=== PATIENT | female | born 1935 ===

== ENCOUNTER 2016-11-27 07:13 | Emergency (ER) | payer MEDICARE, OTHER ==
[2016-11-27 07:13] VITALS: BMI 41.0
[2016-11-27 07:23] VITALS: RESP 16; TEMP 99.2
--- NOTE | 2016-11-27 07:35 | ED PDOC ---
Arrival/HPI - General Chief Complaint: Lower Extremity Problem/Injury Time Seen by Provider: 11/27/16 07:25 Historian: Patient - History of Present Illness Narrative History of Present Illness (Text): 11/27/16 07:33 81 year old female whose past medical history includes hypertension, CAD s/p angioplasty, diabetes, chronic kidney disease, chronic anemia, hyperkalemia, and thrombocytopenia presents to the emergency department with right foot pain since yesterday. She states she is unable to walk due to the pain. Patient reports she took Tylenol with no improvement. Denies trauma or injury. No fever , chills, or body aches. PMD: Dr. Morataya Time/Duration: 24 hours Symptom Onset: Sudden Symptom Course: Unchanged Modifying Factors (Text): Tylenol with no improvement Associated Symptoms (Text): None Past Medical History - Provider Review Nursing Documentation Reviewed: Yes - Infectious Disease Hx of Infectious Diseases: None - Tetanus Immunization Tetanus Immunization: Unknown - Cardiac Hx Cardiac Disorders: Yes Hx Congestive Heart Failure: Yes Hx Hypertension: Yes - Pulmonary Hx Respiratory Disorders: No - Neurological Hx Neurological Disorder: No - HEENT Hx HEENT Disorder: Yes - Renal Hx Renal Disorder: No - Endocrine/Metabolic Hx Endocrine Disorders: Yes Hx Diabetes Mellitus Type 2: Yes - Hematological/Oncological Hx Blood Disorders: Yes Hx Blood Transfusions: Yes Hx Blood Transfusion Reaction: No - Integumentary Hx Dermatological Disorder: No Other/Comment: mid upper back multiple dark brown moles pt c/o they itch - Musculoskeletal/Rheumatological Hx Musculoskeletal Disorders: Yes Hx Arthritis: Yes (right leg) - Gastrointestinal Hx Gastrointestinal Disorders: Yes (gi bleed) - Genitourinary/Gynecological Hx Genitourinary Disorders: No - Psychiatric Hx Psychophysiologic Disorder: Yes Hx Anxiety: Yes Hx Substance Use: No - Surgical History Hx Amputation: No Hx Appendectomy: Yes Other/Comment: colon sx 2015 for internal bleeding - Anesthesia Hx Anesthesia Reactions: No Hx Malignant Hyperthermia: No - Suicidal Assessment Feels Threatened In Home Enviroment: No Family/Social History - Physician Review Nursing Documentation Reviewed: Yes Family/Social History: Unknown Family HX Smoking Status: Never Smoked Hx Alcohol Use: No Hx Substance Use: No Hx Substance Use Treatment: No Allergies/Home Meds Allergies/Adverse Reactions: Allergies shellfish derived Allergy (Verified 11/27/16 07:23) RASH Home Medications: Home Meds Medication Instructions Recorded Confirmed GlipiZIDE [Glucotrol] 10 mg PO DAILY 01/21/15 11/27/16 Furosemide [Lasix] 20 mg PO DAILY 04/14/15 11/27/16 Amlodipine Besylate [Norvasc] 10 mg PO DAILY 08/23/15 11/27/16 Aspirin [Aspirin Chewable] 81 mg PO DAILY 08/23/15 11/27/16 Iron,Carbonyl [Feosol] 65 mg PO DAILY 08/23/15 11/27/16 Isosorbide Mononitrate [Imdur] 60 mg PO DAILY 08/23/15 11/27/16 Multivit-Min/FA/Lycopen/Lutein 1 tab PO DAILY 08/23/15 11/27/16 [Centrum Silver Tablet] Insulin Lispro Mix 75/25 [HumaLOG 20 units SC .BEFOREBREAKFAST 10/22/15 11/27/16 Mix 75/25] Insulin Lispro Mix 75/25 [HumaLOG 20 units SC .BEFOREDINNER 10/22/15 11/27/16 Mix 75/25] Nitroglycerin [Nitrostat SL Tab] 0.3 mg SL PRN PRN 07/27/16 11/27/16 Pantoprazole [Protonix EC Tab] 20 mg PO DAILY 07/27/16 11/27/16 Review of Systems - Physician Review All systems were reviewed & negative as marked: Yes - Review of Systems Constitutional: Other (No chills). absent: Fevers Musculoskeletal: Other (Right foot pain). absent: Arthralgias, Back Pain Physical Exam Vital Signs Reviewed: Yes Vital Signs Temp Pulse Resp BP Pulse Ox 11/27/16 09:49 52 L 16 108/41 L 95 11/27/16 07:23 99.2 F 56 L 16 135/48 L 94 L Temperature: Afebrile Pulse: Bradycardic Respiratory Rate: Normal Appearance: Positive for: Well-Appearing, Non-Toxic Pain Distress: Moderate Mental Status: Positive for: Alert and Oriented X 3 - Systems Exam Head: Present: Atraumatic, Normocephalic Pupils: Present: PERRL Conjunctiva: Present: Normal Mouth: Present: Moist Mucous Membranes Neck: Present: Normal Range of Motion Upper Extremity: Present: Normal Inspection. No: Cyanosis, Edema Lower Extremity: Present: NORMAL PULSES, Other (Right lower extremity with redness, warmth, tenderness, and swelling to the dorsal side. ) Neurological: Present: GCS=15, CN II-XII Intact, Speech Normal Skin: Present: Warm, Dry. No: Rashes Psychiatric: Present: Alert, Oriented x 3, Normal Insight, Normal Concentration Medical Decision Making ED Course and Treatment: Impression: 81 year old female whose past medical history includes hypertension , CAD s/p angioplasty, diabetes, chronic kidney disease, chronic anemia, hyperkalemia, and thrombocytopenia presents to the emergency department with right foot pain since yesterday. Differential Diagnosis included but are not limited to: Cellulitis vs arthritis Plan: -- XR right foot -- Toradol -- Reassess and disposition Prior Visits: Notes and results from previous visits were reviewed. Patient last seen in the ED on 08/01/16 for abdominal pain and admitted for Cholelithiasis, Abdominal pain. Progress Notes: 11/27/16 08:28 Doppler shows great pulses as per Zora STAFFORD. X-ray negative as read by me. Patient states she did not take her diabetes medication for high glucose but will take it at home. Will discharge patient with a cane (pt did not want crutches) and instructions, and have her follow up with wet milling wheel operator Dr. Wang as well as her PMD. Patient agrees with plan. - Lab Interpretations Lab Results: Lab Results 11/27/16 07:54: POC Glucose (mg/dL) 322 H - RAD Interpretation Narrative RAD Interpretations (Text): PROCEDURE: Right Foot Radiographs. Crisis Manager : Abdullahi Delacruz MD Report Date : 11/27/2016 09:20:20 IMPRESSION: Normal right foot radiographs. Radiology Orders: 11/27/16 07:26 FOOT RIGHT 3 VIEWS ROUTINE [RAD] Stat Repairer: Radiologist - Medication Orders Current Medication Orders: Discontinued Medications Doxycycline Hyclate (Doryx) 100 mg PO STAT STA PRN Reason: Protocol Stop: 11/27/16 08:28 Last Admin: 11/27/16 08:42 Dose: 100 mg Ketorolac Tromethamine (Toradol) 60 mg IM STAT STA Stop: 11/27/16 07:27 Last Admin: 11/27/16 07:35 Dose: 60 mg Tramadol HCl (Ultram) 25 mg PO STAT STA Stop: 11/27/16 08:58 Last Admin: 11/27/16 09:08 Dose: 25 mg - Scribe Statement The provider has reviewed the documentation as recorded by the Elizabeth Kyle Provider Elizabeth Attestation: All medical record entries made by the Elizabeth were at my direction and personally dictated by me. I have reviewed the chart and agree that the record accurately reflects my personal performance of the history, physical exam, medical decision making, and the department course for this patient. I have also personally directed, reviewed, and agree with the discharge instructions and disposition. Disposition/Present on Arrival - Present on Arrival Any Indicators Present on Arrival: No History of DVT/PE: No History of Uncontrolled Diabetes: No Urinary Catheter: No History of Decub. Ulcer: No History Surgical Site Infection Following: None - Disposition Have Diagnosis and Disposition been Completed?: Yes Diagnosis: Cellulitis of foot Disposition: HOME/ ROUTINE Disposition Time: 08:28 Patient Plan: Discharge Condition: IMPROVED Discharge Instructions (ExitCare): Cellulitis (ED) Additional Instructions: Mr. Winters, thank you for letting us take care of you today. Your provider was Dr. Pendleton. You were treated for Foot Pain/Cellulitis, Hyperglycemia. The emergency medical care you received today was directed at your acute symptoms. If you were prescribed any medication, please fill it and take as directed. It may take several days for your symptoms to resolve. Return to the Emergency Department if your symptoms worsen, do not improve, or if you have any other problems. Please contact your doctor or call one of the physicians/clinics you have been referred to that are listed on the Patient Visit Information form that is included in your discharge packet. Bring any paperwork you were given at discharge with you along with any medications you are taking to your follow up visit. Our treatment cannot replace ongoing medical care by a primary care provider (PCP) outside of the emergency department. Thank you for allowing the [facility] team to be part of your care today. If you had an X-Ray or CT scan: A Radiologist will review the ED reading if any change in treatment is needed we will contact you. If you had a blood, urine, or wound culture: It will take several days for the results, if any change in treatment is needed we will contact you. If you had an STI test: It will take 48 hours for the results. Please call after 1 week if you have not heard back. Prescriptions: Doxycycline Hyclate 100 mg PO BID #28 capsule Naproxen 500 mg PO BID PRN #30 tab PRN Reason: Pain, Moderate (4-7) Referrals: Aspen Wang DPM [Staff Provider] - Follow up with primary Harsh Morataya MD [Primary Care Provider] - Follow up with primary Forms: [employer] ([place])
--- NOTE | 2016-11-27 09:21 | RAD ---
PROCEDURE: Right Foot Radiographs. HISTORY: pain r/o fx COMPARISON: None. FINDINGS: BONES: Normal. No fracture. JOINTS: Normal. SOFT TISSUES: Normal. OTHER FINDINGS: None. IMPRESSION: Normal right foot radiographs.
[2016-11-27 09:56] VITALS: BP 108/41; PULSE 52; O2SAT 95
== END 2016-11-27 10:15 | disposition home or self-care (01) ==
LOC: ED 07:13
DX: L03.115 Cellulitis of right lower limb (principal); E11.9 Type 2 diabetes mellitus without complications; I12.9 Hypertensive chronic kidney disease with stage 1 through stage 4 chronic kidney disease, or unspecified chronic kidney disease; N18.9 Chronic kidney disease, unspecified; E87.5 Hyperkalemia
CPT/HCPCS: 73630; 82948; 96372; 99284; J1885

== ENCOUNTER 2016-12-22 09:18 | Inpatient (IN) | payer MEDICARE, OTHER ==
--- NOTE | 2016-12-22 09:32 | ED PDOC ---
Arrival/HPI - General Chief Complaint: Abdominal Pain Time Seen by Provider: 12/22/16 09:20 Historian: Patient, Spouse - History of Present Illness Narrative History of Present Illness (Text): 12/22/16 09:29 81 year old female whose past medical history includes hypertension, CAD s/p angioplasty, diabetes, chronic kidney disease, chronic anemia, hyperkalemia, and thrombocytopenia presents to the emergency department complaining of OSPINA, chills, pleuritic chest pain, nausea, vomiting, abdominal pain, leg swelling, dizziness, and shortness of breath. Denies rectal bleeding, recent travel, sick contact, fever, rash, trauma, or recent surgical procedure. Time/Duration: Other (since last night) Context: Home Past Medical History - Provider Review Nursing Documentation Reviewed: Yes - Infectious Disease Hx of Infectious Diseases: None - Tetanus Immunization Tetanus Immunization: Unknown - Cardiac Hx Cardiac Disorders: Yes Hx Congestive Heart Failure: Yes Hx Hypertension: Yes - Pulmonary Hx Respiratory Disorders: No - Neurological Hx Neurological Disorder: No - HEENT Hx HEENT Disorder: Yes - Renal Hx Renal Disorder: No - Endocrine/Metabolic Hx Endocrine Disorders: Yes Hx Diabetes Mellitus Type 2: Yes - Hematological/Oncological Hx Blood Disorders: Yes Hx Blood Transfusions: Yes Hx Blood Transfusion Reaction: No - Integumentary Hx Dermatological Disorder: No - Musculoskeletal/Rheumatological Hx Musculoskeletal Disorders: Yes Hx Arthritis: Yes (right leg) - Gastrointestinal Hx Gastrointestinal Disorders: Yes (gi bleed) - Genitourinary/Gynecological Hx Genitourinary Disorders: No - Psychiatric Hx Psychophysiologic Disorder: Yes Hx Anxiety: Yes Hx Substance Use: No - Surgical History Hx Amputation: No Hx Appendectomy: Yes Other/Comment: colon sx 2015 - Anesthesia Hx Anesthesia Reactions: No Hx Malignant Hyperthermia: No - Suicidal Assessment Feels Threatened In Home Enviroment: No Family/Social History - Physician Review Nursing Documentation Reviewed: Yes Family/Social History: No Known Family HX Smoking Status: Never Smoked Hx Alcohol Use: No Hx Substance Use: No Hx Substance Use Treatment: No Allergies/Home Meds Allergies/Adverse Reactions: Allergies shellfish derived Allergy (Verified 12/22/16 12:44) RASH Home Medications: Home Meds Medication Instructions Recorded Confirmed GlipiZIDE [Glucotrol] 10 mg PO DAILY 01/21/15 12/22/16 Furosemide [Lasix] 20 mg PO DAILY 04/14/15 12/22/16 Amlodipine Besylate [Norvasc] 10 mg PO DAILY 08/23/15 12/22/16 Aspirin [Aspirin Chewable] 81 mg PO DAILY 08/23/15 12/22/16 Iron,Carbonyl [Feosol] 65 mg PO DAILY 08/23/15 12/22/16 Isosorbide Mononitrate [Imdur] 60 mg PO DAILY 08/23/15 12/22/16 Multivit-Min/FA/Lycopen/Lutein 1 tab PO DAILY 08/23/15 12/22/16 [Centrum Silver Tablet] Insulin Lispro Mix 75/25 [HumaLOG 20 units SC .BEFOREBREAKFAST 10/22/15 12/22/16 Mix 75/25] Insulin Lispro Mix 75/25 [HumaLOG 20 units SC .BEFOREDINNER 10/22/15 12/22/16 Mix 75/25] Nitroglycerin [Nitrostat SL Tab] 0.3 mg SL PRN PRN 07/27/16 12/22/16 Pantoprazole [Protonix EC Tab] 20 mg PO DAILY 07/27/16 12/22/16 Review of Systems - Review of Systems Constitutional: Fatigue, Other ((+) chills). absent: Weight Change, Fevers, Night Sweats Eyes: Normal. absent: Vision Changes, Photophobia ENT: Normal. absent: Hearing Changes, Sore Throat, Rhinorrhea Respiratory: SOB. absent: Cough, Sputum, Wheezing Cardiovascular: Chest Pain, Edema, NAVARRO. absent: Palpitations, Calf Pain, Orthopnea, Syncope Gastrointestinal: Abdominal Pain, Nausea, Vomiting. absent: Constipation, Diarrhea, Appetite Changes, Hematochezia, Hematemesis Genitourinary Female: Normal. absent: Dysuria, Frequency, Hematuria Musculoskeletal: Normal. absent: Back Pain, Neck Pain, Myalgias Skin: Normal. absent: Rash, Pruritis, Cellulitis Neurological: Headache, Dizziness. absent: Focal Weakness, Gait Changes, Speech Changes, Facial Droop, Disequilibrium, Seizure Endocrine: Normal Hemo/Lymphatic: Normal Psychiatric: Normal Physical Exam Vital Signs Temp Pulse Pulse Resp BP Pulse Ox 12/22/16 14:09 98 F 81 65 18 145/64 12/22/16 14:06 98 F 81 16 145/64 12/22/16 13:54 133/69 12/22/16 13:21 98.2 F 79 18 128/57 L 12/22/16 12:57 99 F 81 19 112/47 L 12/22/16 10:59 65 18 131/97 H 100 12/22/16 09:35 98 F 67 20 147/67 100 Temperature: Afebrile Blood Pressure: Normal Pulse: Regular Respiratory Rate: Normal Appearance: Positive for: Well-Appearing, Non-Toxic, Ill-Appearing, Uncomfortable Pain Distress: None Mental Status: Positive for: Alert and Oriented X 3 - Systems Exam Head: Present: Atraumatic, Normocephalic Pupils: Present: PERRL Extroacular Muscles: Present: EOMI Conjunctiva: Present: Normal Mouth: Present: Moist Mucous Membranes, Normal Lips. No: Drooling Pharnyx: Present: Normal. No: ERYTHEMA, EXUDATE, TONSILS ENLARGED Nose (External): Present: Atraumatic Nose (Internal): Present: Normal Inspection Neck: Present: Normal Range of Motion Respiratory/Chest: Present: Clear to Auscultation, Good Air Exchange. No: Respiratory Distress, Accessory Muscle Use, Wheezes, Retracting, Rhonchi Cardiovascular: Present: Regular Rate and Rhythm, Normal S1, S2. No: Murmurs Abdomen: Present: Tenderness (mild LLQ tenderness), Normal Bowel Sounds. No: Distention, Peritoneal Signs, Rebound, Guarding Rectal: Present: Normal Rectal Tone, Other ((+) black stool. (+) GUAIAC positive with positive control). No: Rectal Tenderness, Gross Blood, Hemorrhoids, Fissures, Nodule/Mass/Lesions Back: Present: Normal Inspection. No: CVA Tenderness Upper Extremity: Present: Normal Inspection, Normal ROM, NORMAL PULSES, Neurovascularly Intact, Capillary Refill < 2s. No: Cyanosis, Edema Lower Extremity: Present: Normal Inspection, NORMAL PULSES, Normal ROM, Neurovascularly Intact, Capillary Refill < 2 s. No: Edema Neurological: Present: GCS=15, CN II-XII Intact, Speech Normal, Motor Func Grossly Intact, Normal Sensory Function Skin: Present: Warm, Dry, Normal Color. No: Rashes Psychiatric: Present: Alert, Oriented x 3, Normal Insight, Normal Concentration Medical Decision Making ED Course and Treatment: 12/22/16 12:34 Dr. Canela came to see patient. Patient stated she has had multiple black stool in the past, last time was last night. GUAIAC was positive. I spoke with RIVERA Hunter regarding DrSocorro Morataya requested one pint of blood, and to give Lasix prior blood transfusion. Nurse understood plan. I was not able to change from 2 pints to 1 pint of blood transfusion on [employer]. RN is aware Re-evaluation Time: 12:36 Reassessment Condition: Re-examined, Improving,but remains with symptoms - Lab Interpretations Lab Results: 12/22/16 09:30 12/22/16 09:30 Lab Results 12/22/16 11:20: Blood Type A POSITIVE, Antibody Screen Negative, Crossmatch See Detail, BBK History Checked Patient has bt 12/22/16 11:11: Blood Type Cancelled, Antibody Screen Cancelled, BBK History Checked Cancelled 12/22/16 11:03: NT-Pro-B Natriuret Pep 553 H 12/22/16 10:50: Urine Color Yellow, Urine Appearance Slight-cloudy, Urine pH 6.0 , Ur Specific [place] 1.010, Urine Protein Negative, Urine Glucose (UA) 100 H, Urine Ketones Negative, Urine Blood Negative, Urine Nitrate Negative, Urine Bilirubin Negative, Urine Urobilinogen 0.2, Ur Leukocyte Esterase Trace H, Urine RBC Negative, Urine WBC 0 - 2, Ur Epithelial Cells 3 - 4, Urine Bacteria Few 12/22/16 09:30: Sodium 136, Chloride 102, Potassium 4.2, Carbon Dioxide 25, Anion Gap 13, BUN 42 H, Creatinine 1.5 H, Est GFR ( Amer) 40, Est GFR ( Non-Af Amer) 33, Random Glucose 185 H, Calcium 9.0, Total Bilirubin 0.4, AST 37 , ALT 37, Alkaline Phosphatase 122, Lactate Dehydrogenase 427, Total Creatine Kinase < 20 L, Troponin I < 0.01, Total Protein 6.0, Albumin 3.0, Globulin 3.0, Albumin/Globulin Ratio 1.0 L 12/22/16 09:30: pO2 34, VBG pH 7.43, VBG pCO2 40.0, VBG HCO3 26.5, VBG Total CO2 27.7, VBG O2 Sat (Calc) 74.0 H, VBG Base Excess 2.0, VBG Potassium 4.3, Sodium 137.0, Chloride 106.0, Lactate 3.0 H, FiO2 21.0, Venous Blood Potassium 4.3 12/22/16 09:30: PT 12.0 H, INR 1.11 H, APTT 25.1 12/22/16 09:30: WBC 10.0 D, RBC 2.16 L, Hgb 7.1 L D, Hct 21.3 L, MCV 98.6, MCH 32.9, MCHC 33.3, RDW 14.9 H, Plt Count 191, MPV 9.7, Gran % 57.8, Lymph % (Auto ) 27.6, [place] % (Auto) 10.7 H, Eos % (Auto) 3.1, Baso % (Auto) 0.8, Gran # 5.81, Lymph # 2.8, [place] # 1.1 H, Eos # 0.3, Baso # 0.08 I have reviewed the lab results: Yes Interpretation: Abnormal lab values - RAD Interpretation Narrative RAD Interpretations (Text): 12/22/16 10:23 Accession No. : [id number] Patient Name / ID : LEILA ZAVALETA / [id number] Exam Date : 12/22/2016 09:45:43 ( Approved ) Study Comment : Sex / Age : F / 81Y Creator : Abdullahi Delacruz MD Dictator : Abdullahi Delacruz MD Game Bird Farmer : Cob Sawyer : Abdullahi Delacruz MD Approver2 : Report Date : 12/22/2016 10:14:27 My Comment : PROCEDURE: CT HEAD WITHOUT CONTRAST. HISTORY: dizziness COMPARISON: None available. TECHNIQUE: Axial computed tomography images were obtained through the head/brain without intravenous contrast. Radiation dose: Total exam DLP = 689 mGy-cm. This CT exam was performed using one or more of the following dose reduction techniques: Automated exposure control, adjustment of the mA and/or kV according to patient size, and/or use of iterative reconstruction technique. FINDINGS: HEMORRHAGE: No intracranial hemorrhage. BRAIN: No mass effect or edema. No atrophy or chronic microvascular ischemic changes. VENTRICLES: Unremarkable. No hydrocephalus. CALVARIUM: Unremarkable. PARANASAL SINUSES: Unremarkable as visualized. No significant inflammatory changes. MASTOID AIR CELLS: Unremarkable as visualized. No inflammatory changes. OTHER FINDINGS: None. IMPRESSION: No acute findings 12/22/16 10:23 Accession No. : [id number] Patient Name / ID : LEILA ZAVALETA / [id number] Exam Date : 12/22/2016 09:48:12 ( Approved ) Study Comment : Sex / Age : F / 81Y Creator : Abdullahi Delacruz MD Dictator : Abdullahi Delacruz MD Game Bird Farmer : Cob Sawyer : Abdullahi Delacruz MD Approver2 : Report Date : 12/22/2016 10:19:30 My Comment : PROCEDURE: CT Abdomen and Pelvis without intravenous contrast HISTORY: saul-umbilical pain COMPARISON: None. TECHNIQUE: Technique. Contrast Dose: Radiation dose: Total exam DLP = 308 mGy-cm. This CT exam was performed using one or more of the following dose reduction techniques: Automated exposure control, adjustment of the mA and/or kV according to patient size, and/or use of iterative reconstruction technique. FINDINGS: LOWER THORAX: Unremarkable. LIVER: Unremarkable. No gross lesion or ductal dilatation. GALLBLADDER AND BILE DUCTS: Small gallstones PANCREAS: Unremarkable. No gross lesion or ductal dilatation. SPLEEN: Unremarkable. ADRENALS: Unremarkable. No mass. KIDNEYS AND URETERS: Unremarkable. No hydronephrosis. No solid mass. VASCULATURE: Unremarkable. No aortic aneurysm. BOWEL: Unremarkable. No obstruction. No gross mural thickening. A suture line is seen in transverse colon. Right hemicolectomy APPENDIX: Right hemicolectomy. No appendix PERITONEUM: Unremarkable. No free fluid. No free air. Small fact containing umbilical hernia LYMPH NODES: Unremarkable. No enlarged lymph nodes. BLADDER: Unremarkable. REPRODUCTIVE: Unremarkable. BONES: No acute fracture. OTHER FINDINGS: None. IMPRESSION: No acute intra-abdominal findings 12/22/16 10:27 Accession No. : [id number] Patient Name / ID : LEILA ZAVALETA / [id number] Exam Date : 12/22/2016 09:59:05 ( Approved ) Study Comment : Sex / Age : F / 81Y Creator : Abdullahi Delacruz MD Dictator : Abdullahi Delacruz MD Game Bird Farmer : Cob Sawyer : Abdullahi Delacruz MD Approver2 : Report Date : 12/22/2016 10:20:36 My Comment : HISTORY: sob COMPARISON: 07/26/2016 FINDINGS: LUNGS: No active pulmonary disease. PLEURA: No significant pleural effusion identified, no pneumothorax apparent. CARDIOVASCULAR: Normal. OSSEOUS STRUCTURES: No significant abnormalities. VISUALIZED UPPER ABDOMEN: Normal. OTHER FINDINGS: None. IMPRESSION: No active disease. Radiology Orders: 12/22/16 09:44 CHEST PORTABLE [RAD] Stat 12/22/16 09:46 ABD & PELVIS W/O PO OR IV CONT [CT] Stat 12/22/16 09:50 HEAD W/O CONTRAST [CT] Stat - EKG Interpretation Interpreted by ED Physician: Yes (Sinus Bradycardia @ [address] changes) Type: 12 lead EKG Comparison: No previous EKG avail. - Medication Orders Current Medication Orders: Amlodipine Besylate (Norvasc) 10 mg PO DAILY [facility] Last Admin: 12/22/16 13:54 Dose: 10 mg Aspirin (Aspirin Chewable) 81 mg PO DAILY [facility] Last Admin: 12/22/16 13:54 Dose: 81 mg Ferrous Sulfate (Feosol) 324 mg PO DAILY [facility] Last Admin: 12/22/16 14:11 Dose: 324 mg Furosemide (Lasix) 40 mg IVP DAILY [facility] Glipizide (Glucotrol) 10 mg PO DAILY [facility] Last Admin: 12/22/16 14:12 Dose: 10 mg Insulin Lispro Protam/Lispro Human (Humalog Mix 75/25) 20 units SC ACB [facility] Insulin Lispro Protam/Lispro Human (Humalog Mix 75/25) 20 units SC ACD [facility] Isosorbide Mononitrate (Imdur) 60 mg PO DAILY [facility] Last Admin: 12/22/16 14:11 Dose: 60 mg Pantoprazole Sodium (Protonix Ec Tab) 40 mg PO 0630 [facility] Discontinued Medications Albuterol/Ipratropium (Duoneb 3 Mg/0.5 Mg (3 Ml) Ud) 3 ml IH STAT STA Stop: 12/22/16 09:44 Last Admin: 12/22/16 10:16 Dose: 3 ml Furosemide (Lasix) 40 mg IVP STAT STA Stop: 12/22/16 12:31 Last Admin: 12/22/16 12:57 Dose: 40 mg Insulin Lispro Protam/Lispro Human (Humalog Mix 75/25) 20 units SC .BEFOREBREAKFAST [facility] Insulin Lispro Protam/Lispro Human (Humalog Mix 75/25) 20 units SC .BEFOREDINNER [facility] Pantoprazole Sodium (Protonix Inj) 40 mg IVP STAT STA Stop: 12/22/16 12:33 Last Admin: 12/22/16 13:54 Dose: 40 mg Pneumococcal Polyvalent Vaccine (Pneumovax 23 Vaccine) 0.5 ml IM .ONCE ONE Stop: 12/22/16 14:55 Disposition/Present on Arrival - Present on Arrival Any Indicators Present on Arrival: No History of DVT/PE: No History of Uncontrolled Diabetes: No Urinary Catheter: No History of Decub. Ulcer: No History Surgical Site Infection Following: None - Disposition Have Diagnosis and Disposition been Completed?: Yes Diagnosis: GI bleed, Symptomatic anemia Disposition: HOSPITALIZED Disposition Time: 12:36 Patient Plan: Admission Patient Problems: Current Active Problems Problem Status Onset GI bleed Acute Symptomatic anemia Acute Condition: STABLE
[2016-12-22] MEDS ORDERED: Albuterol-Ipratrop 3 mg / 0.5 (3 ml) UD IH STA (09:43)
[2016-12-22 10:09] LABS: BASO # 0.08 K/mm3 (0.0-2.0); BASO % 0.8 % (0.0-3.0); EOS # 0.3 (0.0-0.7); EOS % 3.1 % (1.5-5.0); GRAN # 5.81 (1.4-6.5); GRAN % 57.8 % (50.0-68.0); LYMPH # 2.8 (1.2-3.4); LYMPH % 27.6 % (22.0-35.0); MEAN CELL VOLUME 98.6 fL (80.0-105.0); MEAN CORPUSCULAR HEMOGLOBIN 32.9 pg (25.0-35.0); MEAN CORPUSCULAR HGB CONC 33.3 g/dl (31.0-37.0); MEAN PLATELET VOLUME 9.7 fl (7.0-11.0); MONO # 1.1 (0.1-0.6); MONO % 10.7 % (1.0-6.0); PLATELET COUNT 191 10^3/uL (120.0-450.0); RBC 2.16 10^6/uL (3.5-6.1); RED CELL DISTRIBUTION WIDTH 14.9 % (11.5-14.5); VENOUS BLOOD GAS PO2 34 mm/Hg (30-55); VENOUS BLOOD PH 7.43 (7.32-7.43)
--- NOTE | 2016-12-22 10:16 | CT ---
PROCEDURE: CT HEAD WITHOUT CONTRAST. HISTORY: dizziness COMPARISON: None available. TECHNIQUE: Axial computed tomography images were obtained through the head/brain without intravenous contrast. Radiation dose: Total exam DLP = 689 mGy-cm. This CT exam was performed using one or more of the following dose reduction techniques: Automated exposure control, adjustment of the mA and/or kV according to patient size, and/or use of iterative reconstruction technique. FINDINGS: HEMORRHAGE: No intracranial hemorrhage. BRAIN: No mass effect or edema. No atrophy or chronic microvascular ischemic changes. VENTRICLES: Unremarkable. No hydrocephalus. CALVARIUM: Unremarkable. PARANASAL SINUSES: Unremarkable as visualized. No significant inflammatory changes. MASTOID AIR CELLS: Unremarkable as visualized. No inflammatory changes. OTHER FINDINGS: None. IMPRESSION: No acute findings
[2016-12-22 10:18] LABS: ALT/SGPT 37 U/L (7-56); AST/SGOT 37 U/L (15-39); BLOOD UREA NITROGEN 42 mg/dL (7-21); GFR AFRICAN-AMERICAN 40; GFR NON-AFRICAN AMERICAN 33
--- NOTE | 2016-12-22 10:21 | CT ---
PROCEDURE: CT Abdomen and Pelvis without intravenous contrast HISTORY: saul-umbilical pain COMPARISON: None. TECHNIQUE: Technique. Contrast Dose: Radiation dose: Total exam DLP = 308 mGy-cm. This CT exam was performed using one or more of the following dose reduction techniques: Automated exposure control, adjustment of the mA and/or kV according to patient size, and/or use of iterative reconstruction technique. FINDINGS: LOWER THORAX: Unremarkable. LIVER: Unremarkable. No gross lesion or ductal dilatation. GALLBLADDER AND BILE DUCTS: Small gallstones PANCREAS: Unremarkable. No gross lesion or ductal dilatation. SPLEEN: Unremarkable. ADRENALS: Unremarkable. No mass. KIDNEYS AND URETERS: Unremarkable. No hydronephrosis. No solid mass. VASCULATURE: Unremarkable. No aortic aneurysm. BOWEL: Unremarkable. No obstruction. No gross mural thickening. A suture line is seen in transverse colon. Right hemicolectomy APPENDIX: Right hemicolectomy. No appendix PERITONEUM: Unremarkable. No free fluid. No free air. Small fact containing umbilical hernia LYMPH NODES: Unremarkable. No enlarged lymph nodes. BLADDER: Unremarkable. REPRODUCTIVE: Unremarkable. BONES: No acute fracture. OTHER FINDINGS: None. IMPRESSION: No acute intra-abdominal findings
--- NOTE | 2016-12-22 10:22 | RAD ---
HISTORY: sob COMPARISON: 07/26/2016 FINDINGS: LUNGS: No active pulmonary disease. PLEURA: No significant pleural effusion identified, no pneumothorax apparent. CARDIOVASCULAR: Normal. OSSEOUS STRUCTURES: No significant abnormalities. VISUALIZED UPPER ABDOMEN: Normal. OTHER FINDINGS: None. IMPRESSION: No active disease.
[2016-12-22 10:24] LABS: INR 1.11 (0.93-1.08); PARTIAL THROMBOPLASTIN TIME 25.1 Seconds (23.7-30.8)
[2016-12-22 10:28] LABS: HEMOGLOBIN 7.1 gm/dL (12.0-16.0)
[2016-12-22 10:38] LABS: TROPONIN I < 0.01 ng/mL
[2016-12-22 11:12] LABS: URINE BILIRUBIN NEGATIVE (NEGATIVE); URINE BLOOD NEGATIVE (NEGATIVE); URINE GLUCOSE (UA) 100 mg/dL (NEGATIVE); URINE LEUKOCYTE ESTERASE TRACE Leu/uL (NEGATIVE); URINE NITRATE NEGATIVE (NEGATIVE); URINE PROTEIN NEGATIVE mg/dL (<30 mg/dL); URINE UROBILINOGEN 0.2 E.U./dL (<1 E.U./dL)
[2016-12-22 11:16] LABS: URINE APPEARANCE SLIGHT-CLOUDY (CLEAR); URINE COLOR YELLOW (YELLOW)
[2016-12-22 11:26] LABS: URINE RBC NEGATIVE /hpf (0-2); URINE WBC 0 - 2 /hpf (0-6)
[2016-12-22 11:27] LABS: URINE BACTERIA FEW (NEG)
[2016-12-22] MEDS ORDERED: Insulin Lispro (humaLOG) MIX 75/25(10 ml) SC SCH ×2 (12:15)
[2016-12-22] MEDS ORDERED: Pantoprazole 40mg/100ml IVPB 40 MG/100 ML BAG IVPB STA (12:29)
[2016-12-22 13:42] LABS: VENOUS BLOOD GAS BASE EXCESS -0.9 mmol/L (0.0-2.0); VENOUS BLOOD GAS PO2 67 mm/Hg (30-55); VENOUS BLOOD PH 7.32 (7.32-7.43)
[2016-12-22 14:54] VITALS: BMI 23.0
[2016-12-22] MEDS ORDERED: Pneumococcal 23-Valent Vaccine IM ONE (14:54)
--- NOTE | 2016-12-22 15:56 | CARD ---
APPROVED REPORT EKG Measurement Heart [id number] <Conclusion> Sinus rhythm with Junctional Escape Abnormal ECG
[2016-12-22] MEDS: Insulin Lispro (HUMAlog) HIGH Coverage SC SCH (16:30)
[2016-12-22] MEDS: Insulin Lispro (humaLOG) MIX 75/25(10 ml) SC SCH (16:30)
[2016-12-22] MEDS: Benzocaine/Menthol (Cepacol) Lozenge MT PRN (21:29)
[2016-12-23] MEDS ORDERED: DiphenhydrAMINE 50 mg/ml Inj IVP STA (00:50)
--- NOTE | 2016-12-23 00:50 | CP.PCM.PN ---
Subjective - Date & Time of Evaluation Date of Evaluation: 12/23/16 Time of Evaluation: 00:41 - Subjective Subjective: Patient was seen at bedside. She complained of itching all over the body which began even prior to she received blood transfusion yesterday. She also has complain of itching in throat for which she has received a cepacol so far. Has no other complaints. Denies allergy to any medications , food. Has allergy to shellfish. Received blood transfusion earlier completed 16:56. Medical record was reviewed. This 81 year old woman was admitted headache, nausea, vomiting, sob, pleuritic chest pain, abdominal pain , dizziness, leg swelling. Has PMH of DM I ,CKD, HTN, CAD, S/P angioplasty, cardiac cirrhosis,chronic anemia, chronic hyperkalemia, thrombocytopenia cholelithiasis, chronic back pain. Objective - Vital Signs/Intake and Output Vital Signs (last 24 hours): Temp Pulse Resp BP Pulse Ox 98.4 F 83 20 123/58 L 94 L 12/22/16 16:56 12/22/16 16:56 12/22/16 16:56 12/22/16 16:56 12/22/16 16:00 Intake and Output: 12/22/16 12/23/16 18:59 06:59 Intake Total 300 480 Output Total 1 Balance 300 479 - Medications Medications: Current Medications Amlodipine Besylate (Norvasc) 10 mg PO DAILY [facility] Last Admin: 12/22/16 13:54 Dose: 10 mg Aspirin (Aspirin Chewable) 81 mg PO DAILY [facility] Last Admin: 12/22/16 13:54 Dose: 81 mg Benzocaine/Menthol (Cepacol Sore Throat) 1 nabil MT Q2H PRN PRN Reason: Sore Throat Last Admin: 12/22/16 21:29 Dose: 1 nabil Ferrous Sulfate (Feosol) 324 mg PO DAILY [facility] Last Admin: 12/22/16 14:11 Dose: 324 mg Furosemide (Lasix) 40 mg IVP DAILY [facility] Glipizide (Glucotrol) 10 mg PO DAILY [facility] Last Admin: 12/22/16 14:12 Dose: 10 mg Insulin Human Lispro (Humalog High) 0 units SC ACHS [facility] PRN Reason: Protocol Last Admin: 12/22/16 16:30 Dose: 4 units Insulin Lispro Protam/Lispro Human (Humalog Mix 75/25) 20 units SC ACB [facility] Insulin Lispro Protam/Lispro Human (Humalog Mix 75/25) 20 units SC ACD [facility] Last Admin: 12/22/16 16:30 Dose: 20 units Isosorbide Mononitrate (Imdur) 60 mg PO DAILY [facility] Last Admin: 12/22/16 14:11 Dose: 60 mg Pantoprazole Sodium (Protonix Ec Tab) 40 mg PO 0630 [facility] - Labs Labs: PT 12.0 Seconds (9.9-11.8) H 12/22/16 09:30 INR 1.11 (0.93-1.08) H 12/22/16 09:30 APTT 25.1 Seconds (23.7-30.8) 12/22/16 09:30 Lab Studies 12/23/16 12/22/16 12/22/16 Range/Units 01:22 21:14 16:34 WBC (4.5-11.0) 10^3/ul RBC (3.5-6.1) 10^6/uL Hgb (12.0-16.0) gm/dL Hct (36.0-48.0) % MCV (80.0-105.0) fL MCH (25.0-35.0) pg MCHC (31.0-37.0) g/dl RDW (11.5-14.5) % Plt Count (120.0-450.0) 10^3/uL MPV (7.0-11.0) fl Gran % (50.0-68.0) % Lymph % (Auto) (22.0-35.0) % Dewitt % (Auto) (1.0-6.0) % Eos % (Auto) (1.5-5.0) % Baso % (Auto) (0.0-3.0) % Gran # (1.4-6.5) Lymph # (1.2-3.4) Dewitt # (0.1-0.6) Eos # (0.0-0.7) Baso # (0.0-2.0) K/mm3 PT (9.9-11.8) Seconds INR (0.93-1.08) APTT (23.7-30.8) Seconds pO2 (30-55) mm/Hg VBG pH (7.32-7.43) VBG pCO2 (40-60) VBG HCO3 (21-28) mmol/l VBG Total CO2 (22-28) mmol.L VBG O2 Sat (Calc) (40-65) % VBG Base Excess (0.0-2.0) mmol/L VBG Potassium (3.6-5.2) mmol/L Sodium (132-148) mmol/L Chloride (98-107) mmol/L Glucose (65-105) mg/dl Lactate (0.7-2.1) mmol/L FiO2 % Potassium (3.6-5.0) mmol/L Carbon Dioxide (21-33) mmol/L Anion Gap (10-20) BUN (7-21) mg/dL Creatinine (0.5-1.4) mg/dL Est GFR ( Amer) Est GFR (Non-Af Amer) POC Glucose (mg/dL) 273 H 278 H 243 H (65-110) mg/dL Random Glucose (70-110) mg/dL Calcium (8.4-10.5) mg/dL Total Bilirubin (0.2-1.3) mg/dL AST (15-39) U/L ALT (7-56) U/L Alkaline Phosphatase (38-133) U/L Lactate Dehydrogenase (333-699) U/L Total Creatine Kinase (35-230) U/L Troponin I ng/mL NT-Pro-B Natriuret Pep (0-450) pg/mL Total Protein (5.8-8.3) g/dL Albumin (3.0-4.8) g/dL Globulin gm/dL Albumin/Globulin Ratio (1.1-1.8) Venous Blood Potassium (3.6-5.2) mmol/L Urine Color (YELLOW) Urine Appearance (CLEAR) Urine pH (4.7-8.0) Ur Specific Gowen (1.005-1.035) Urine Protein (<30 mg/dL) mg/dL Urine Glucose (UA) (NEGATIVE) mg/dL Urine Ketones (NEGATIVE) mg/dL Urine Blood (NEGATIVE) Urine Nitrate (NEGATIVE) Urine Bilirubin (NEGATIVE) Urine Urobilinogen (<1 E.U./dL) E.U./dL Ur Leukocyte Esterase (NEGATIVE) Carmen/uL Urine RBC (0-2) /hpf Urine WBC (0-6) /hpf Ur Epithelial Cells (0-5) /hpf Urine Bacteria (NEG) Blood Type Antibody Screen Crossmatch BBK History Checked 12/22/16 12/22/16 12/22/16 Range/Units 14:10 13:36 11:20 WBC (4.5-11.0) 10^3/ul RBC (3.5-6.1) 10^6/uL Hgb (12.0-16.0) gm/dL Hct (36.0-48.0) % MCV (80.0-105.0) fL MCH (25.0-35.0) pg MCHC (31.0-37.0) g/dl RDW (11.5-14.5) % Plt Count (120.0-450.0) 10^3/uL MPV (7.0-11.0) fl Gran % (50.0-68.0) % Lymph % (Auto) (22.0-35.0) % Dewitt % (Auto) (1.0-6.0) % Eos % (Auto) (1.5-5.0) % Baso % (Auto) (0.0-3.0) % Gran # (1.4-6.5) Lymph # (1.2-3.4) Dewitt # (0.1-0.6) Eos # (0.0-0.7) Baso # (0.0-2.0) K/mm3 PT (9.9-11.8) Seconds INR (0.93-1.08) APTT (23.7-30.8) Seconds pO2 67 H (30-55) mm/Hg VBG pH 7.32 (7.32-7.43) VBG pCO2 50.0 (40-60) VBG HCO3 25.8 (21-28) mmol/l VBG Total CO2 27.3 (22-28) mmol.L VBG O2 Sat (Calc) 96.8 H (40-65) % VBG Base Excess -0.9 L (0.0-2.0) mmol/L VBG Potassium 5.2 (3.6-5.2) mmol/L Sodium 155.0 H (132-148) mmol/L Chloride 90.0 L (98-107) mmol/L Glucose 235 H (65-105) mg/dl Lactate 1.4 (0.7-2.1) mmol/L FiO2 21.0 % Potassium (3.6-5.0) mmol/L Carbon Dioxide (21-33) mmol/L Anion Gap (10-20) BUN (7-21) mg/dL Creatinine (0.5-1.4) mg/dL Est GFR ( Amer) Est GFR (Non-Af Amer) POC Glucose (mg/dL) 335 H (65-110) mg/dL Random Glucose (70-110) mg/dL Calcium (8.4-10.5) mg/dL Total Bilirubin (0.2-1.3) mg/dL AST (15-39) U/L ALT (7-56) U/L Alkaline Phosphatase (38-133) U/L Lactate Dehydrogenase (333-699) U/L Total Creatine Kinase (35-230) U/L Troponin I ng/mL NT-Pro-B Natriuret Pep (0-450) pg/mL Total Protein (5.8-8.3) g/dL Albumin (3.0-4.8) g/dL Globulin gm/dL Albumin/Globulin Ratio (1.1-1.8) Venous Blood Potassium 5.2 (3.6-5.2) mmol/L Urine Color (YELLOW) Urine Appearance (CLEAR) Urine pH (4.7-8.0) Ur Specific Gowen (1.005-1.035) Urine Protein (<30 mg/dL) mg/dL Urine Glucose (UA) (NEGATIVE) mg/dL Urine Ketones (NEGATIVE) mg/dL Urine Blood (NEGATIVE) Urine Nitrate (NEGATIVE) Urine Bilirubin (NEGATIVE) Urine Urobilinogen (<1 E.U./dL) E.U./dL Ur Leukocyte Esterase (NEGATIVE) Carmen/uL Urine RBC (0-2) /hpf Urine WBC (0-6) /hpf Ur Epithelial Cells (0-5) /hpf Urine Bacteria (NEG) Blood Type A POSITIVE Antibody Screen Negative Crossmatch See Detail BBK History Checked Patient has bt 12/22/16 12/22/16 12/22/16 Range/Units 11:11 11:03 10:50 WBC (4.5-11.0) 10^3/ul RBC (3.5-6.1) 10^6/uL Hgb (12.0-16.0) gm/dL Hct (36.0-48.0) % MCV (80.0-105.0) fL MCH (25.0-35.0) pg MCHC (31.0-37.0) g/dl RDW (11.5-14.5) % Plt Count (120.0-450.0) 10^3/uL MPV (7.0-11.0) fl Gran % (50.0-68.0) % Lymph % (Auto) (22.0-35.0) % Dewitt % (Auto) (1.0-6.0) % Eos % (Auto) (1.5-5.0) % Baso % (Auto) (0.0-3.0) % Gran # (1.4-6.5) Lymph # (1.2-3.4) Dewitt # (0.1-0.6) Eos # (0.0-0.7) Baso # (0.0-2.0) K/mm3 PT (9.9-11.8) Seconds INR (0.93-1.08) APTT (23.7-30.8) Seconds pO2 (30-55) mm/Hg VBG pH (7.32-7.43) VBG pCO2 (40-60) VBG HCO3 (21-28) mmol/l VBG Total CO2 (22-28) mmol.L VBG O2 Sat (Calc) (40-65) % VBG Base Excess (0.0-2.0) mmol/L VBG Potassium (3.6-5.2) mmol/L Sodium (132-148) mmol/L Chloride (98-107) mmol/L Glucose (65-105) mg/dl Lactate (0.7-2.1) mmol/L FiO2 % Potassium (3.6-5.0) mmol/L Carbon Dioxide (21-33) mmol/L Anion Gap (10-20) BUN (7-21) mg/dL Creatinine (0.5-1.4) mg/dL Est GFR ( Amer) Est GFR (Non-Af Amer) POC Glucose (mg/dL) (65-110) mg/dL Random Glucose (70-110) mg/dL Calcium (8.4-10.5) mg/dL Total Bilirubin (0.2-1.3) mg/dL AST (15-39) U/L ALT (7-56) U/L Alkaline Phosphatase (38-133) U/L Lactate Dehydrogenase (333-699) U/L Total Creatine Kinase (35-230) U/L Troponin I ng/mL NT-Pro-B Natriuret Pep 553 H (0-450) pg/mL Total Protein (5.8-8.3) g/dL Albumin (3.0-4.8) g/dL Globulin gm/dL Albumin/Globulin Ratio (1.1-1.8) Venous Blood Potassium (3.6-5.2) mmol/L Urine Color Yellow (YELLOW) Urine Appearance Slight-cloudy (CLEAR) Urine pH 6.0 (4.7-8.0) Ur Specific Gowen 1.010 (1.005-1.035) Urine Protein Negative (<30 mg/dL) mg/dL Urine Glucose (UA) 100 H (NEGATIVE) mg/dL Urine Ketones Negative (NEGATIVE) mg/dL Urine Blood Negative (NEGATIVE) Urine Nitrate Negative (NEGATIVE) Urine Bilirubin Negative (NEGATIVE) Urine Urobilinogen 0.2 (<1 E.U./dL) E.U./dL Ur Leukocyte Esterase Trace H (NEGATIVE) Carmen/uL Urine RBC Negative (0-2) /hpf Urine WBC 0 - 2 (0-6) /hpf Ur Epithelial Cells 3 - 4 (0-5) /hpf Urine Bacteria Few (NEG) Blood Type Cancelled Antibody Screen Cancelled Crossmatch BBK History Checked Cancelled 12/22/16 12/22/16 12/22/16 Range/Units 09:30 09:30 09:30 WBC (4.5-11.0) 10^3/ul RBC (3.5-6.1) 10^6/uL Hgb (12.0-16.0) gm/dL Hct (36.0-48.0) % MCV (80.0-105.0) fL MCH (25.0-35.0) pg MCHC (31.0-37.0) g/dl RDW (11.5-14.5) % Plt Count (120.0-450.0) 10^3/uL MPV (7.0-11.0) fl Gran % (50.0-68.0) % Lymph % (Auto) (22.0-35.0) % Dewitt % (Auto) (1.0-6.0) % Eos % (Auto) (1.5-5.0) % Baso % (Auto) (0.0-3.0) % Gran # (1.4-6.5) Lymph # (1.2-3.4) Dewitt # (0.1-0.6) Eos # (0.0-0.7) Baso # (0.0-2.0) K/mm3 PT (9.9-11.8) Seconds INR (0.93-1.08) APTT (23.7-30.8) Seconds pO2 34 (30-55) mm/Hg VBG pH 7.43 (7.32-7.43) VBG pCO2 40.0 (40-60) VBG HCO3 26.5 (21-28) mmol/l VBG Total CO2 27.7 (22-28) mmol.L VBG O2 Sat (Calc) 74.0 H (40-65) % VBG Base Excess 2.0 (0.0-2.0) mmol/L VBG Potassium 4.3 (3.6-5.2) mmol/L Sodium 136 137.0 (132-148) mmol/L Chloride 102 106.0 (98-107) mmol/L Glucose (65-105) mg/dl Lactate 3.0 H (0.7-2.1) mmol/L FiO2 21.0 % Potassium 4.2 (3.6-5.0) mmol/L Carbon Dioxide 25 (21-33) mmol/L Anion Gap 13 (10-20) BUN 42 H (7-21) mg/dL Creatinine 1.5 H (0.5-1.4) mg/dL Est GFR ( Amer) 40 Est GFR (Non-Af Amer) 33 POC Glucose (mg/dL) 256 H (65-110) mg/dL Random Glucose 185 H (70-110) mg/dL Calcium 9.0 (8.4-10.5) mg/dL Total Bilirubin 0.4 (0.2-1.3) mg/dL AST 37 (15-39) U/L ALT 37 (7-56) U/L Alkaline Phosphatase 122 (38-133) U/L Lactate Dehydrogenase 427 (333-699) U/L Total Creatine Kinase < 20 L (35-230) U/L Troponin I < 0.01 ng/mL NT-Pro-B Natriuret Pep (0-450) pg/mL Total Protein 6.0 (5.8-8.3) g/dL Albumin 3.0 (3.0-4.8) g/dL Globulin 3.0 gm/dL Albumin/Globulin Ratio 1.0 L (1.1-1.8) Venous Blood Potassium 4.3 (3.6-5.2) mmol/L Urine Color (YELLOW) Urine Appearance (CLEAR) Urine pH (4.7-8.0) Ur Specific Gowen (1.005-1.035) Urine Protein (<30 mg/dL) mg/dL Urine Glucose (UA) (NEGATIVE) mg/dL Urine Ketones (NEGATIVE) mg/dL Urine Blood (NEGATIVE) Urine Nitrate (NEGATIVE) Urine Bilirubin (NEGATIVE) Urine Urobilinogen (<1 E.U./dL) E.U./dL Ur Leukocyte Esterase (NEGATIVE) Carmen/uL Urine RBC (0-2) /hpf Urine WBC (0-6) /hpf Ur Epithelial Cells (0-5) /hpf Urine Bacteria (NEG) Blood Type Antibody Screen Crossmatch BBK History Checked 12/22/16 12/22/16 Range/Units 09:30 09:30 WBC 10.0 D (4.5-11.0) 10^3/ul RBC 2.16 L (3.5-6.1) 10^6/uL Hgb 7.1 L D (12.0-16.0) gm/dL Hct 21.3 L (36.0-48.0) % MCV 98.6 (80.0-105.0) fL MCH 32.9 (25.0-35.0) pg MCHC 33.3 (31.0-37.0) g/dl RDW 14.9 H (11.5-14.5) % Plt Count 191 (120.0-450.0) 10^3/uL MPV 9.7 (7.0-11.0) fl Gran % 57.8 (50.0-68.0) % Lymph % (Auto) 27.6 (22.0-35.0) % Dewitt % (Auto) 10.7 H (1.0-6.0) % Eos % (Auto) 3.1 (1.5-5.0) % Baso % (Auto) 0.8 (0.0-3.0) % Gran # 5.81 (1.4-6.5) Lymph # 2.8 (1.2-3.4) Dewitt # 1.1 H (0.1-0.6) Eos # 0.3 (0.0-0.7) Baso # 0.08 (0.0-2.0) K/mm3 PT 12.0 H (9.9-11.8) Seconds INR 1.11 H (0.93-1.08) APTT 25.1 (23.7-30.8) Seconds pO2 (30-55) mm/Hg VBG pH (7.32-7.43) VBG pCO2 (40-60) VBG HCO3 (21-28) mmol/l VBG Total CO2 (22-28) mmol.L VBG O2 Sat (Calc) (40-65) % VBG Base Excess (0.0-2.0) mmol/L VBG Potassium (3.6-5.2) mmol/L Sodium (132-148) mmol/L Chloride (98-107) mmol/L Glucose (65-105) mg/dl Lactate (0.7-2.1) mmol/L FiO2 % Potassium (3.6-5.0) mmol/L Carbon Dioxide (21-33) mmol/L Anion Gap (10-20) BUN (7-21) mg/dL Creatinine (0.5-1.4) mg/dL Est GFR ( Amer) Est GFR (Non-Af Amer) POC Glucose (mg/dL) (65-110) mg/dL Random Glucose (70-110) mg/dL Calcium (8.4-10.5) mg/dL Total Bilirubin (0.2-1.3) mg/dL AST (15-39) U/L ALT (7-56) U/L Alkaline Phosphatase (38-133) U/L Lactate Dehydrogenase (333-699) U/L Total Creatine Kinase (35-230) U/L Troponin I ng/mL NT-Pro-B Natriuret Pep (0-450) pg/mL Total Protein (5.8-8.3) g/dL Albumin (3.0-4.8) g/dL Globulin gm/dL Albumin/Globulin Ratio (1.1-1.8) Venous Blood Potassium (3.6-5.2) mmol/L Urine Color (YELLOW) Urine Appearance (CLEAR) Urine pH (4.7-8.0) Ur Specific Gowen (1.005-1.035) Urine Protein (<30 mg/dL) mg/dL Urine Glucose (UA) (NEGATIVE) mg/dL Urine Ketones (NEGATIVE) mg/dL Urine Blood (NEGATIVE) Urine Nitrate (NEGATIVE) Urine Bilirubin (NEGATIVE) Urine Urobilinogen (<1 E.U./dL) E.U./dL Ur Leukocyte Esterase (NEGATIVE) Carmen/uL Urine RBC (0-2) /hpf Urine WBC (0-6) /hpf Ur Epithelial Cells (0-5) /hpf Urine Bacteria (NEG) Blood Type Antibody Screen Crossmatch BBK History Checked - Constitutional Appears: Well, No Acute Distress - Head Exam Head Exam: ATRAUMATIC, NORMAL INSPECTION, NORMOCEPHALIC - Eye Exam Eye Exam: Normal appearance - ENT Exam ENT Exam: Normal External Ear Exam - Neck Exam Neck Exam: Normal Inspection - Respiratory Exam Respiratory Exam: NORMAL BREATHING PATTERN - Cardiovascular Exam Cardiovascular Exam: absent: JVD - GI/Abdominal Exam GI & Abdominal Exam: Soft (YEs.), Tenderness (Mild saul umbilical tenderness present.), Normal Bowel Sounds. absent: Bruit, Distended, Firm, Guarding, Rigid , Mass, Organomegaly, Pulsatile Mass, Rebound Additional comments: Midline kelly present. RLQ site of Froylan-Albert clean ,dry. - Rectal Exam Rectal Exam: Deferred - Exam Additional comments: Deferred. - Extremities Exam Extremities Exam: Normal Inspection - Back Exam Back Exam: NORMAL INSPECTION - Neurological Exam Neurological Exam: Alert, Oriented x3 - Psychiatric Exam Psychiatric exam: Normal Affect, Normal Mood - Skin Skin Exam: Normal Color. absent: Dry, Rash Assessment and Plan - Assessment and Plan (Free Text) Assessment: Itching. Sore throat. HTN. CKD. Chronic hyperkalemai. Chronic anemia. Chronic back pain. CAD. S/P stent. Hx cholelithiasis. Plan: Benadryl 25 mg IV stat. Cepacol as ordered. Continue present management.
[2016-12-23] MEDS: Benzocaine/Menthol (Cepacol) Lozenge MT PRN ×2 (01:10→06:01)
--- NOTE | 2016-12-23 02:41 | HP ---
HISTORY OF PRESENT ILLNESS: The patient is an 81 years old came to the emergency room, because of shortness of breath, chest pressure, fatigue, leg pain, had vomiting this morning, did not complain of diarrhea, did have one or two black bowel movement couple of days ago. Complain of decreased appetite. Complain of leg pain. Complain of generalized itching and multiple other miscellaneous complaints. PAST MEDICAL HISTORY: She has significant past medical history of: 1. Hypertension. 2. Coronary artery disease status post angioplasty in 2015. 3. Insulin dependent diabetes. 4. 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 5. Hyperkalemia. 6. Chronic anemia and thrombocytopenia. 7. Cardiac sclerosis. 8. Chronic kidney disease. 9. History of hyperkalemia. 10. 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 11. Status post right hemicolectomy with because of AVMs. ALLERGIES: SHE IS ALLERGIC TO SHELLFISH. MEDICATIONS AT HOME. She is on Tramadol, Protonix 20 mg daily, Nitrostat, Naproxen 500 mg twice a day as needed, multivitamin, isosorbide 60 mg daily, ferrous sulfate 65 daily. The patient is on insulin 75/25 20 units twice a day, glipizide 10 mg daily, Lasix 20 mg daily, aspirin 81 mg daily and amlodipine 10 mg daily. SOCIAL HISTORY: Denies smoking or drinking. REVIEW OF SYSTEMS: Significant for generalized weakness, decreased appetite, leg pain, nausea, intermittent diarrhea. PHYSICAL EXAMINATION: GENERAL: Today looks pale and weak. VITAL SIGNS: She is afebrile, pulse 81, respiration 18, blood pressure 145/64. LUNGS: Bilateral fair air flow. No rhonchi or crackle. HEART: S1 and S2 audible with loud systolic murmur. ABDOMEN: Soft and nontender. No rebound and no guarding. NEUROLOGIC: The patient is awake and alert, able to communicate. LABORATORY DATA: WBC is 10, hemoglobin 7.1, hematocrit 21.3, platelet of 191. PT 12.0, INR 1.11. Chemistry: Sodium 136, potassium 4.2, chloride 102, CO2 *------*, BUN 42, creatinine 1.5. Blood sugar is 185. LFTs are within normal limits. CPK is 20. BNP 553. Urinalysis is unremarkable. CT scan of the head is negative. CT scan of the abdomen and pelvis is unremarkable. ASSESSMENT: 1. Symptomatic anemia. 2. History of gastrointestinal arterioventricular malfunctions. 3. History of Dieulafoy's lesion. 3. Hypertension. 4. Chronic kidney disease. 5. Insulin dependent diabetes. 6. Generalized weakness. PLAN: We will given her one blood transfusion today. We will follow CBC, CMP in a.m. We will monitor blood sugar and GI consult by *------* has been requested. We will revaluate the patient in a.m. Harsh Morataya MD
[2016-12-23 07:27] LABS: ALB/GLOB RATIO 0.9 (1.1-1.8); ALBUMIN 2.6 g/dL (3.0-4.8); CALCIUM 8.6 mg/dL (8.4-10.5)
[2016-12-23 07:28] LABS: BASO # 0.08 K/mm3 (0.0-2.0); BASO % 0.7 % (0.0-3.0); EOS # 0.5 (0.0-0.7); GRAN # 7.99 (1.4-6.5); GRAN % 65.4 % (50.0-68.0); LYMPH # 2.5 (1.2-3.4); LYMPH % 20.6 % (22.0-35.0); MEAN CELL VOLUME 95.1 fL (80.0-105.0); MEAN CORPUSCULAR HGB CONC 33.6 g/dl (31.0-37.0); MEAN PLATELET VOLUME 9.6 fl (7.0-11.0); MONO # 1.1 (0.1-0.6); MONO % 9.3 % (1.0-6.0); PLATELET COUNT 169 10^3/uL (120.0-450.0); RBC 2.44 10^6/uL (3.5-6.1); RED CELL DISTRIBUTION WIDTH 17.4 % (11.5-14.5); WHITE BLOOD COUNT 12.2 10^3/ul (4.5-11.0)
[2016-12-23 07:38] LABS: HEMOGLOBIN 7.8 gm/dL (12.0-16.0)
[2016-12-23] MEDS: Insulin Lispro (HUMAlog) HIGH Coverage SC SCH ×4 (08:17→21:44)
[2016-12-23] MEDS: Insulin Lispro (humaLOG) MIX 75/25(10 ml) SC SCH ×2 (08:19→17:26)
--- NOTE | 2016-12-23 14:59 | PN ---
SUBJECTIVE: The patient is an 81 years old seen and examined, complaining of having generalized weakness, poor appetite. No more diarrhea or nausea, receiving blood transfusion. Hemoglobin is still low, no active bleeding, no hemoptysis, no hematemesis. PHYSICAL EXAMINATION: VITAL SIGNS: He is afebrile, pulse 86, respirations 16 and blood pressure 123/56. LUNGS: Bilateral fair airflow. No rhonchi or crackles. HEART: S1 and S2, audible. ABDOMEN: Soft, nontender. No rebound. No guarding. NEUROLOGIC: She is awake and alert, communicative. LABORATORY DATA: WBC is 12.2, hemoglobin 7.8, hematocrit 23.2, platelet of 169. Chemistry: Sodium 134, potassium 4.4, chloride 101, CO2 26, BUN 52, creatinine 1.5. Blood sugar of 184. Blood cultures are negative. ASSESSMENT: 1. Symptomatic anemia. 2. Generalized weakness. 3. Hypertension. 4. Coronary artery disease status post angioplasty. 5. History of gastrointestinal arterioventricular malfunctions status post right hemicolectomy in the past because of active bleeding. 6. Generalized osteoarthritis. PLAN: The patient will receive blood transfusion. Gave her one dose of IV *------* and we will followup *------*. Followup CBC, CMP in a.m. Harsh Morataya MD
[2016-12-23 15:24] LABS: HEMOGLOBIN 8.9 gm/dL (12.0-16.0)
[2016-12-24] MEDS: Pantoprazole 40 mg EC Tab PO SCH (06:00)
[2016-12-24] MEDS: Insulin Lispro (HUMAlog) HIGH Coverage SC SCH ×4 (08:18→22:31)
[2016-12-24] MEDS: Insulin Lispro (humaLOG) MIX 75/25(10 ml) SC SCH ×2 (08:19→16:33)
--- NOTE | 2016-12-25 00:13 | PN ---
DATE: 12/24/2016 HISTORY OF PRESENT ILLNESS: Ms. Winters is an 81-year-old female with history of chronic anemia secondary to GI bleed. She has Dieulafoy's lesion in the stomach. GI AVM. She also underwent right hemicolectomy because of AVM. She came with hemoglobin of 7 and left lower extremity pain. She has fatigue, tired and shortness of breath. She has had dark-colored stools a few days ago. PAST MEDICAL HISTORY: Hypertension, coronary artery disease, insulin-independent diabetes mellitus, Dieulafoy lesion in the stomach, stats post endoscopy, GI AVM, chronic anemia, thrombocytopenia and chronic kidney disease. PAST SURGICAL HISTORY: Status post right hemicolectomy. ALLERGIES: ALLERGIC TO SHELLFISH. SOCIAL HISTORY: Nonsmoker. No history of alcohol abuse. PERSONAL HISTORY: Lives at home with . REVIEW OF SYSTEMS: Asper HPI. Rest of 12-point review of systems reviewed and negative. PHYSICAL EXAMINATION: GENERAL: Comfortable, lying in bed, in no acute distress. VITAL SIGNS: Temperature 97.8, heart rate 80 per minute, blood pressure 120/70. HEENT: Normal. NECK: No lymphadenopathy. CHEST: Air entry present equal bilaterally. No rhonchi. No crepitation. CARDIOVASCULAR: S1, S2 normal. No murmur. No gallop. ABDOMEN: Soft, nontender. No hepatosplenomegaly. EXTREMITIES: No edema. NEUROLOGIC: Awake, alert and oriented x3. No focal sensory motor deficit. LABORATORY DATA: White count 12.2; hemoglobin 7.8, repeat 8.9; hematocrit 23.2; platelet count 169,000; glucose 184. MEDICATIONS: Xanax 0.25 mg q. 8 hours p.r.n, Norvasc 10 mg daily, aspirin 81 mg daily, ferrous sulfate 324 p.o. daily, Lasix 40 mg daily, glipizide 10 mg daily, insulin, Protonix 40 mg daily, Imdur 60 mg daily, Ultram 50 mg p.o. 6 hours p.r.n. ASSESSMENT: 1. Severe anemia secondary to gastrointestinal bleed; gastric Dieulafoy, status post multiple endoscopies, colonoscopies. 2. Chronic kidney disease. 3. Diabetes mellitus type 2. 4. Generalized weakness. 5. Left lower extremity pain. 6. Hypertension. 7. Leukocytosis. PLAN: She is status post 2 units of blood transfusion. Hemoglobin stable at 8.9. We will order CBC for next morning. No active bleeding. No black-colored tools. Labs ordered for tomorrow. We will continue Xanax p.r.n., complaining of left lower pain. Tylenol 650 q. 4 hours p.r.n. for pain. We will continue insulin for diabetes mellitus. She is also on p.o. iron. Continue aspirin and Norvasc. Continue Lasix. She is also on Ultram for pain, continue that. Protonix 40 mg daily. Cathleen Hampton MD
[2016-12-25] MEDS: Pantoprazole 40 mg EC Tab PO SCH (05:33)
[2016-12-25] MEDS: Insulin Lispro (HUMAlog) HIGH Coverage SC SCH (07:30)
[2016-12-25 07:52] LABS: BASO # 0.06 K/mm3 (0.0-2.0); BASO % 0.7 % (0.0-3.0); EOS # 0.5 (0.0-0.7); EOS % 5.5 % (1.5-5.0); GRAN # 4.96 (1.4-6.5); GRAN % 57.2 % (50.0-68.0); HEMOGLOBIN 9.6 gm/dL (12.0-16.0); LYMPH # 2.3 (1.2-3.4); LYMPH % 26.2 % (22.0-35.0); MEAN CELL VOLUME 94.1 fL (80.0-105.0); MEAN CORPUSCULAR HEMOGLOBIN 31.6 pg (25.0-35.0); MEAN CORPUSCULAR HGB CONC 33.6 g/dl (31.0-37.0); MEAN PLATELET VOLUME 9.6 fl (7.0-11.0); MONO # 0.9 (0.1-0.6); MONO % 10.4 % (1.0-6.0); PLATELET COUNT 157 10^3/uL (120.0-450.0); RBC 3.04 10^6/uL (3.5-6.1); WHITE BLOOD COUNT 8.7 10^3/ul (4.5-11.0)
[2016-12-25 08:03] LABS: CALCIUM 8.1 mg/dL (8.4-10.5)
[2016-12-25] MEDS: Insulin Lispro (humaLOG) MIX 75/25(10 ml) SC SCH (11:12)
[2016-12-25 18:35] VITALS: BP 116/54; PULSE 89; RESP 19; TEMP 98.2; O2SAT 99
--- NOTE | 2016-12-26 11:42 | PQF GENQUE ---
12/26/16 Dr. Morataya, Patient has anemia due to chronic blood loss, stated to be GI bleeding. Patient also has history of GI AVM's and Dieulafoy lesion. Is GI bleed due to either of these known conditions? Thank you. Clarification of your documentation is requested to better reflect the severity of illness and intensity of treatment of your patient. Indicators present Specify: [] [] Specify: [] [] Specify: [] [] Specify: [] Location in the medical record that reflects the above clinical findings: [] Treatment Provided: [x] PHYSICIAN'S RESPONSE Based on your medical judgment of the clinical indicators outlined above please clarify the following: [] Practitioner response [x] If unable to determine, please check the box, sign and date. Present On Admission (POA) Indicator: [x] Present at the time of admission [] Not present at the time of admission [] Clinically Undetermined In responding to this query, please exercise your independent professional judgment. The fact that a question is asked does not imply that any particular answer is desired or expected. Thank you for your clarification on this documentation. If you have any questions please call:[ ] * Thank you, [ ] animation director BRENDEN
--- NOTE | 2016-12-26 11:45 | PQF CHF ---
12/26/16 Dr. Morataya, CHF history is indicated on ED notes. Please document type and severity, as listed below. Thank you. Clarification of your documentation is requested to better reflect the severity of illness and intensity of treatment of your patient. Indicators present [] Diagnosis of CHF and/or history of CHF [] BNP > 200 [] Imaging Finding of Pulmonary Edema /Pleural Effusions [] Fluid/Volume Overload [] Pitting edema [] Ejection Fraction < 40% (Indicative of Systolic Heart Failure) [] Ejection Fraction > 40% (Indicative of Diastolic Heart Failure) [] Dyspnea / Orthopenea / Paroxysmal Nocturnal Dyspnea [] Other: Location in the medical record that reflects the above clinical findings: [] Treatment Provided: [] PHYSICIAN'S RESPONSE Based on your medical judgment of the clinical indicators outlined above, are you treating this patient for a known or suspected: [] Acute CHF [] Systolic [] Diastolic [] Combined [x] Chronic CHF [] Systolic [] Diastolic x[] Combined [] Acute on Chronic CHF []Systolic [] Diastolic [] Combined [] CHF due hypertension [] Acute systolic []Chronic systolic [] Acute/ chronic systolic [] Other, please indicate: [] [] If Unable to Determine, please check the box, sign and date. Present On Admission (POA) Indicator: [] Present at the time of admission [x] Not present at the time of admission [] Clinically Undetermined In responding to this query, please exercise your independent professional judgment. The fact that a question is asked does not imply that any particular answer is desired or expected. Thank you for your clarification on this documentation. If you have any questions please call:[ ] * Thank you, [ ] charcoal kiln burner BRENDEN
--- NOTE | 2016-12-26 12:40 | DS ---
HISTORY OF PRESENT ILLNESS: The patient is an 81-year-old, seen and examined and was admitted with generalized weakness, feeling tired and shortness of breath on walking and was found to be anemic and received 2 units of blood transfusion, doing well, seems to be in good spirit. No nausea or vomiting. Eating and tolerating. PHYSICAL EXAMINATION: VITAL SIGNS: She is afebrile, pulse 78, respirations 18, and blood pressure 111/53. LUNGS: Bilateral fair airflow. No rhonchi or crackles. HEART: S1 and S2 audible. ABDOMEN: Soft, nontender. No rebound. No guarding. NEUROLOGIC: The patient is awake and alert and communicative. LABORATORY DATA: WBC is 837, hemoglobin 9.6, hematocrit 28.6, platelets 157. Chemistry: Sodium 137, potassium 3.7, chloride 105, CO2 of 25, BUN 42, creatinine 1.6. Blood sugar of 283. ASSESSMENT AND PLAN: 1. History of arteriovenous malformations, status post right colectomy. 2. Symptomatic anemia, status post 2 units of blood transfusion. 3. Renal insufficiency. 4. Coronary artery disease, status post angioplasty. 5. Insulin-dependent diabetes. PLAN: We will give the patient one dose of Venofer IV and after that the patient can be discharged. She will follow up with me and . *------*. Harsh Morataya MD
== END 2016-12-25 19:18 | disposition home or self-care (01) | DRG 378 ==
LOC: ED 09:18 → ERH 11:36 → 3RSO 14:30
PROVIDERS: ADMIT Internal Medicine; ATTEND Internal Medicine
PROC: 30233N1 Transfusion of Nonautologous Red Blood Cells into Peripheral Vein, Percutaneous Approach (ICD-10-PCS; principal; 2016-12-22)
DX: K92.2 Gastrointestinal hemorrhage, unspecified (principal); I13.0 Hypertensive heart and chronic kidney disease with heart failure and stage 1 through stage 4 chronic kidney disease, or unspecified chronic kidney disease; E11.22 Type 2 diabetes mellitus with diabetic chronic kidney disease; D69.6 Thrombocytopenia, unspecified; Q27.30 Arteriovenous malformation, site unspecified; I50.42 Chronic combined systolic (congestive) and diastolic (congestive) heart failure; K31.82 Dieulafoy lesion (hemorrhagic) of stomach and duodenum; E87.5 Hyperkalemia; D50.0 Iron deficiency anemia secondary to blood loss (chronic); N18.9 Chronic kidney disease, unspecified; Z90.49 Acquired absence of other specified parts of digestive tract; G89.29 Other chronic pain; M54.9 Dorsalgia, unspecified; I25.10 Atherosclerotic heart disease of native coronary artery without angina pectoris; Z98.61 Coronary angioplasty status; Z91.013 Allergy to seafood; K76.1 Chronic passive congestion of liver; K80.20 Calculus of gallbladder without cholecystitis without obstruction; L29.9 Pruritus, unspecified; M15.9 Polyosteoarthritis, unspecified; Z79.4 Long term (current) use of insulin; Z79.899 Other long term (current) drug therapy; R40.2412 Glasgow coma scale score 13-15, at arrival to emergency department; R53.1 Weakness; J02.9 Acute pharyngitis, unspecified

== ENCOUNTER 2017-01-24 18:12 | Observation (INO) | payer MEDICARE, OTHER ==
[2017-01-24] MEDS ORDERED: Sodium Chloride 0.9% 1,000 ML IV STA (19:21)
--- NOTE | 2017-01-24 19:38 | ED PDOC ---
Arrival/HPI - General Chief Complaint: Dizziness/Lightheaded Time Seen by Provider: 01/24/17 18:18 Historian: Patient - History of Present Illness Narrative History of Present Illness (Text): 01/24/17 19:13 A 81 year old female, whose past medical history includes hypertension, CAD s/p angioplasty, diabetes, chronic kidney disease, chronic anemia, hyperkalemia, and thrombocytopenia, presents to the emergency department complaining of dizziness since today this afternoon. Patient reports she experiences dizziness when she moves her head, along with headache. Patient also mentions experiencing right lower back pain when standing up, beginning yesterday. Patient notes vomiting x 2, but denies of any chest pain, abdominal pain, fever , chills, or any other complaints. PMD: Dr. Morataya Time/Duration: 4-6 hours (afternoon today) Symptom Onset: Sudden Symptom Course: Unchanged Activities at Onset: Rest, Light Context: Home Past Medical History - Provider Review Nursing Documentation Reviewed: Yes - Infectious Disease Hx of Infectious Diseases: None - Tetanus Immunization Tetanus Immunization: Unknown - Cardiac Hx Cardiac Disorders: Yes Hx Congestive Heart Failure: Yes Hx Hypertension: Yes - Pulmonary Hx Respiratory Disorders: No - Neurological Hx Neurological Disorder: No - HEENT Hx HEENT Disorder: Yes - Renal Hx Renal Disorder: No - Endocrine/Metabolic Hx Endocrine Disorders: Yes Hx Diabetes Mellitus Type 2: Yes - Hematological/Oncological Hx Blood Disorders: Yes Hx Blood Transfusions: Yes Hx Blood Transfusion Reaction: No - Integumentary Hx Dermatological Disorder: No - Musculoskeletal/Rheumatological Hx Musculoskeletal Disorders: Yes Hx Arthritis: Yes (right leg) - Gastrointestinal Hx Gastrointestinal Disorders: Yes (gi bleed) - Genitourinary/Gynecological Hx Genitourinary Disorders: No - Psychiatric Hx Psychophysiologic Disorder: Yes Hx Anxiety: Yes Hx Substance Use: No - Surgical History Hx Amputation: No Hx Appendectomy: Yes Other/Comment: colon sx 2015 - Anesthesia Hx Anesthesia: Yes Hx Anesthesia Reactions: No Hx Malignant Hyperthermia: No - Suicidal Assessment Feels Threatened In Home Enviroment: No Family/Social History - Physician Review Nursing Documentation Reviewed: Yes Family/Social History: No Known Family HX Smoking Status: Never Smoked Hx Alcohol Use: No Hx Substance Use: No Hx Substance Use Treatment: No Allergies/Home Meds Allergies/Adverse Reactions: Allergies shellfish derived Allergy (Verified 01/24/17 18:26) RASH Home Medications: Home Meds Medication Instructions Recorded Confirmed GlipiZIDE [Glucotrol] 10 mg PO DAILY 01/21/15 01/24/17 Furosemide [Lasix] 20 mg PO DAILY 04/14/15 01/24/17 Amlodipine Besylate [Norvasc] 10 mg PO DAILY 08/23/15 01/24/17 Aspirin [Aspirin Chewable] 81 mg PO DAILY 08/23/15 01/24/17 Iron,Carbonyl [Feosol] 65 mg PO DAILY 08/23/15 01/24/17 Isosorbide Mononitrate [Imdur] 60 mg PO DAILY 08/23/15 01/24/17 Multivit-Min/FA/Lycopen/Lutein 1 tab PO DAILY 08/23/15 01/24/17 [Centrum Silver Tablet] Insulin Lispro Mix 75/25 [HumaLOG 20 units SC .BEFOREBREAKFAST 10/22/15 01/24/17 Mix 75/25] Insulin Lispro Mix 75/25 [HumaLOG 20 units SC .BEFOREDINNER 10/22/15 01/24/17 Mix 75/25] Nitroglycerin [Nitrostat SL Tab] 0.3 mg SL PRN PRN 07/27/16 01/24/17 Pantoprazole [Protonix EC Tab] 20 mg PO DAILY 07/27/16 01/24/17 Review of Systems - Physician Review All systems were reviewed & negative as marked: Yes - Review of Systems Constitutional: absent: Fevers, Night Sweats Cardiovascular: absent: Chest Pain Gastrointestinal: Nausea, Vomiting (vomited twice ). absent: Abdominal Pain Genitourinary Female: absent: Dysuria Musculoskeletal: Back Pain (lower back pain when standing that began yesterday) Neurological: Headache, Dizziness (room spinning, occurs with head movement). absent: Focal Weakness, Gait Changes, Speech Changes, Facial Droop, Disequilibrium, Seizure Physical Exam Vital Signs Reviewed: Yes Vital Signs Temp Pulse Resp BP Pulse Ox 01/24/17 21:49 59 L 16 179/81 H 97 01/24/17 18:32 98.2 F 49 L 18 155/64 H 99 Temperature: Afebrile Blood Pressure: Normal Pulse: Bradycardic Respiratory Rate: Normal Appearance: Positive for: Well-Appearing Pain Distress: None Mental Status: Positive for: Alert and Oriented X 3 - Systems Exam Head: Present: Atraumatic, Normocephalic Pupils: Present: PERRL Extroacular Muscles: Present: EOMI Conjunctiva: Present: Normal Mouth: Present: Moist Mucous Membranes Pharnyx: Present: Normal. No: ERYTHEMA, EXUDATE Neck: Present: Normal Range of Motion Respiratory/Chest: Present: Clear to Auscultation, Good Air Exchange. No: Respiratory Distress, Accessory Muscle Use Cardiovascular: Present: Normal S1, S2, Bradycardic. No: Murmurs Abdomen: Present: Normal Bowel Sounds. No: Tenderness, Distention, Peritoneal Signs Back: Present: Normal Inspection Upper Extremity: Present: Normal Inspection. No: Cyanosis, Edema Lower Extremity: Present: Normal Inspection. No: Edema Neurological: Present: GCS=15, CN II-XII Intact, Speech Normal, Motor Func Grossly Intact, Normal Cerebellar Funct Skin: Present: Warm, Dry, Normal Color. No: Rashes Psychiatric: Present: Alert, Oriented x 3, Normal Insight, Normal Concentration Medical Decision Making ED Course and Treatment: 01/24/17 19:20 Impression: 81 year old female with dizziness. Normal physical exam. Plan: -- Abd/Pelvis CT -- Head CT -- Chest X-ray -- Urinalysis -- Labs -- Antivert -- Zofran -- IV Fluids -- Urine Culture -- Reassess and disposition Prior Visits: Notes and results from previous visits were reviewed. Patient was last seen in the emergency department on 12/22/2016 for OSPINA, chills, pleuritic chest pain, nausea, vomiting, abdominal pain, leg swelling, dizziness, and shortness of breath. Patient was admitted. Progress Notes: EKG: junctional rhythm @ 51 with QRS of 114; poor R wave progression; no new changes c/w 12/22/16. 01/24/17 22:00 CT brain result: IMPRESSION: No CT evidence of acute intracranial abnormality. Chronic changes as above CT a/p result: IMPRESSION: Dilated gallbladder. Cholelithiasis. Anterior wall appears irregularly thickened with calcification. This report is intended only for use by the referring physician, and only in accordance with law. If you received this in error, call [phone]. Page 2 of 2 No obstructing renal calculus or hydronephrosis. Nonspecific perinephric stranding. Evidence of incisional/paraumbilical hernia containing fat with mild bulging of colon into hernia sac. Atherosclerosis. Coronary artery calcification. Cardiac valvular calcification. Somewhat irregular contour to the liver. Limited noncontrast study. Additional details as above. Correlate clinically. Followup as warranted. 0 01/24/17 22:29 Patient's history is more consistent with peripheral vertigo with a normal neuro exam and no abd pain. No cp or sob or near syncopal sensation with unchanged ekg from previous. CE negative. Patient given meclizine and zofran with no improvement - will give and additional dose of meclizine and reglan. She is c/o R back pain / flank pain. CT a/p showing nonspecific perinephric stranding as well as GB findings for possible cholecystitis; no abd tenderness but LFTs are mildly elevated - will order sono and start on abx for possible cholecystitis. Also given dizziness persistence, will need further observation in the hospital. Case discussed with Dr. Rosenthal, covering Dr. Morataya. - Lab Interpretations Lab Results: 01/24/17 19:40 01/24/17 19:40 Lab Results 01/24/17 19:40: PT 12.6 H, INR 1.17 H, APTT 27.3 01/24/17 19:40: Sodium 140, Potassium 4.1, Chloride 105, Carbon Dioxide 26, Anion Gap 13, BUN 28 H, Creatinine 1.4, Est GFR ( Amer) 44, Est GFR (Non- Af Amer) 36, Random Glucose 130 H, Calcium 9.1, Magnesium 2.2, Total Bilirubin 0.6, AST 75 H, ALT 83 H, Alkaline Phosphatase 165 H, Lactate Dehydrogenase 591, Total Creatine Kinase 27 L, Troponin I 0.02 D, Total Protein 7.3, Albumin 3.9, Globulin 3.4, Albumin/Globulin Ratio 1.1, Lipase 125 01/24/17 19:40: Urine Color Yellow, Urine Appearance Clear, Urine pH 6.0, Ur Specific [place] 1.020, Urine Protein 100 H, Urine Glucose (UA) 100 H, Urine Ketones Negative, Urine Blood Small H, Urine Nitrate Negative, Urine Bilirubin Negative, Urine Urobilinogen 0.2, Ur Leukocyte Esterase Negative, Urine RBC 2 - 5, Urine WBC 0 - 2, Ur Epithelial Cells 0 - 2, Urine Bacteria Few 01/24/17 19:40: WBC 5.8 D, RBC 3.84, Hgb 12.8, Hct 37.5, MCV 97.7, MCH 33.3, MCHC 34.1, RDW 15.5 H, Plt Count 107 L, MPV 11.2 H, Gran % 58.9, Lymph % (Auto) 28.6, Keith % (Auto) 8.4 H, Eos % (Auto) 3.6, Baso % (Auto) 0.5, Gran # 3.43, Lymph # 1.7, Keith # 0.5, Eos # 0.2, Baso # 0.03 I have reviewed the lab results: Yes - RAD Interpretation Radiology Orders: 01/24/17 19:19 CHEST PORTABLE [RAD] Stat 01/24/17 19:20 ABD & PELVIS W/O PO OR IV CONT [CT] Stat Brain [HEAD W/O CONTRAST] [CT] Stat 01/24/17 22:03 ABDOMEN COMPLETE [US] Stat - Medication Orders Current Medication Orders: Amlodipine Besylate (Norvasc) 10 mg PO DAILY [facility] Aspirin (Aspirin Chewable) 81 mg PO DAILY [facility]AK Isosorbide Mononitrate (Imdur) 60 mg PO DAILY [facility] Pantoprazole Sodium (Protonix Ec Tab) 20 mg PO DAILY JAK Discontinued Medications Sodium Chloride (Sodium Chloride 0.9%) 1,000 mls @ 999 mls/hr IV .Q1H1M STA Stop: 01/24/17 20:21 Last Admin: 01/24/17 19:54 Dose: 999 mls/hr Meclizine HCl (Antivert) 12.5 mg PO STAT STA Stop: 01/24/17 19:22 Last Admin: 01/24/17 19:56 Dose: 12.5 mg Meclizine HCl (Antivert) 12.5 mg PO STAT STA Stop: 01/24/17 22:11 Metoclopramide HCl (Reglan) 10 mg IVP STAT STA Stop: 01/24/17 22:11 Ondansetron HCl (Zofran Inj) 4 mg IVP STAT STA Stop: 01/24/17 19:22 Last Admin: 01/24/17 19:56 Dose: 4 mg - Scribe Statement The provider has reviewed the documentation as recorded by the Elizabeth Marcus Provider Scribe Attestation: All medical record entries made by the Scribe were at my direction and personally dictated by me. I have reviewed the chart and agree that the record accurately reflects my personal performance of the history, physical exam, medical decision making, and the department course for this patient. I have also personally directed, reviewed, and agree with the discharge instructions and disposition. Disposition/Present on Arrival - Present on Arrival Any Indicators Present on Arrival: No History of DVT/PE: No History of Uncontrolled Diabetes: No Urinary Catheter: No History of Decub. Ulcer: No History Surgical Site Infection Following: None - Disposition Have Diagnosis and Disposition been Completed?: Yes Diagnosis: Vertigo, Elevated LFTs Disposition: HOSPITALIZED Disposition Time: 22:15 Patient Plan: Observation Condition: FAIR Referrals: Harsh Morataya MD [Primary Care Provider] - Follow up with primary Forms: [employer] (Palestinian)
[2017-01-24 20:04] LABS: BASO # 0.03 K/mm3 (0.0-2.0); BASO % 0.5 % (0.0-3.0); EOS # 0.2 (0.0-0.7); EOS % 3.6 % (1.5-5.0); GRAN # 3.43 (1.4-6.5); GRAN % 58.9 % (50.0-68.0); HEMATOCRIT 37.5 % (36.0-48.0); LYMPH # 1.7 (1.2-3.4); LYMPH % 28.6 % (22.0-35.0); MEAN CELL VOLUME 97.7 fl (80.0-105.0); MEAN CORPUSCULAR HEMOGLOBIN 33.3 pg (25.0-35.0); MEAN CORPUSCULAR HGB CONC 34.1 g/dl (31.0-37.0); MEAN PLATELET VOLUME 11.2 fl (7.0-11.0); MONO # 0.5 (0.1-0.6); MONO % 8.4 % (1.0-6.0); RED CELL DISTRIBUTION WIDTH 15.5 % (11.5-14.5); WHITE BLOOD COUNT 5.8 10^3/ul (4.5-11.0)
[2017-01-24 20:05] LABS: URINE BILIRUBIN NEGATIVE (NEGATIVE); URINE BLOOD SMALL (NEGATIVE); URINE GLUCOSE (UA) 100 mg/dL (NEGATIVE); URINE KETONE NEGATIVE (NEGATIVE); URINE LEUKOCYTE ESTERASE NEGATIVE Leu/uL (NEGATIVE); URINE PROTEIN 100 mg/dL (<30 mg/dL); URINE UROBILINOGEN 0.2 E.U./dL (<1 E.U./dL)
[2017-01-24 20:07] LABS: URINE APPEARANCE CLEAR (CLEAR); URINE COLOR YELLOW (YELLOW)
[2017-01-24 20:11] LABS: ALB/GLOB RATIO 1.1 (1.1-1.8); BILIRUBIN,TOTAL 0.6 mg/dL (0.2-1.3); CALCIUM 9.1 mg/dL (8.4-10.5); INR 1.17 (0.93-1.08); MAGNESIUM 2.2 mg/dL (1.7-2.2); PARTIAL THROMBOPLASTIN TIME 27.3 Seconds (23.7-30.8); POTASSIUM 4.1 mmol/L (3.6-5.0); TOTAL PROTEIN 7.3 g/dL (5.8-8.3)
[2017-01-24 20:20] LABS: URINE WBC 0 - 2 /hpf (0-6)
[2017-01-24 20:21] LABS: URINE BACTERIA FEW (NEG); URINE EPITHELIAL CELLS 0 - 2 /hpf (0-5)
[2017-01-24 20:22] LABS: TROPONIN I 0.02 ng/mL
--- NOTE | 2017-01-24 21:57 | CT ---
EXAM: CT Abdomen and Pelvis Without Intravenous Contrast CLINICAL HISTORY: 81 years old, female; Pain; Abdominal pain; Flank; Right; Prior surgery; Surgery date: 6+ months; Surgery type: HX: Colon surgery, ap; Additional info: R flank pain TECHNIQUE: Axial computed tomography images of the abdomen and pelvis without intravenous contrast. All CT scans at this facility use one or more dose reduction techniques, viz.: automated exposure control; ma/kV adjustment per patient size (including targeted exams where dose is matched to indication; i.e. head); or iterative reconstruction technique. Coronal and sagittal reformatted images were created and reviewed. COMPARISON: CT - ABD PELVIS W/O PO OR IV CONT 12/22/2016 9:48:12 AM FINDINGS: Atelectasis/scarring. Atherosclerosis. Coronary artery calcification. Cardiac valvular calcification. Somewhat irregular contour to the liver. The unenhanced spleen, pancreas and adrenal glands demonstrate no acute abnormalities. Dilated gallbladder. Cholelithiasis. Anterior wall appears irregularly thickened with calcification. No obstructing renal calculus or hydronephrosis. Nonspecific perinephric stranding. Evaluation of bowel limited without enteric contrast, particularly for inflammation or underlying lesion. Sutures consistent with prior surgery. Evidence of incisional/paraumbilical hernia containing fat with mild bulging of colon into hernia sac. No ascites. No free air. Degenerative changes. IMPRESSION: Dilated gallbladder. Cholelithiasis. Anterior wall appears irregularly thickened with calcification. Followup evaluation recommended. No obstructing renal calculus or hydronephrosis. Nonspecific perinephric stranding. Evidence of incisional/paraumbilical hernia containing fat with mild bulging of colon into hernia sac. Atherosclerosis. Coronary artery calcification. Cardiac valvular calcification. Somewhat irregular contour to the liver. Limited noncontrast study. Additional details as above. Correlate clinically. Followup as warranted.
--- NOTE | 2017-01-24 21:59 | CT ---
EXAM: CT Head Without Intravenous Contrast CLINICAL HISTORY: 81 years old, female; Signs and symptoms; Dizziness; Additional info: Headache, dizzy TECHNIQUE: Axial computed tomography images of the head/brain without intravenous contrast. All CT scans at this facility use one or more dose reduction techniques, viz.: automated exposure control; ma/kV adjustment per patient size (including targeted exams where dose is matched to indication; i.e. head); or iterative reconstruction technique. COMPARISON: CT - HEAD W/O CONTRAST 12/22/2016 9:45:43 AM FINDINGS: Brain: Atrophy. Bilateral white matter hypoattenuation most consistent with chronic small vessel ischemic changes. Vascular calcification. No hemorrhage. No edema. Ventricles: No hydrocephalus. Bones: Skull is intact. Sinuses: No acute sinusitis. Mastoid air cells: No mastoid effusion. IMPRESSION: No CT evidence of acute intracranial abnormality. Chronic changes as above.
[2017-01-24] MEDS ORDERED: cefTRIAXone 1 gm 1 GM/100 ML BAG IV STA (22:36)
[2017-01-24] MEDS ORDERED: metroNIDAZOLE IV 500 mg/100 ml 500 MG/100 ML BAG IVPB STA (22:36)
--- NOTE | 2017-01-25 00:11 | US ---
EXAM: US Abdomen Complete CLINICAL HISTORY: 81 years old, female; Pain; Abdominal pain; Generalized; Additional info: High lfts; Thick gb on sono - R/O cholecystitis TECHNIQUE: Real-time ultrasound of the abdomen (complete) with image documentation. COMPARISON: CT - ABD PELVIS W/O PO OR IV CONT 01/24/2017 8:44:27 PM FINDINGS: Technically limited study. Liver: Liver measured at 17 cm. Coarsened echogenicity. Gallbladder: Cholelithiasis. Gallbladder wall thickening/edema measuring up to 4.8 mm. Pericholecystic fluid noted. Common bile duct: Measured at 4.5 mm. Pancreas: Unremarkable as visualized. Kidneys: Right kidney measured 8.8 cm. Left kidney measured 8.4 cm. No hydronephrosis. Spleen: No splenomegaly. Aorta IVC: Not clearly visualized. IMPRESSION: Cholelithiasis. Gallbladder wall thickening/edema measuring up to 4.8 mm. Pericholecystic fluid noted. Correlate for cholecystitis. Please note that there is a focal area of wall thickening involving the gallbladder more clearly appreciated on CT for which further evaluation is recommended in addition to concern for cholecystitis. Coarsened echogenicity of the liver.
[2017-01-25] MEDS ORDERED: Lactated Ringer's 1,000 ML IV SCH (01:23)
--- NOTE | 2017-01-25 02:53 | CP.PCM.PN ---
Subjective - Date & Time of Evaluation Date of Evaluation: 01/25/17 Time of Evaluation: 02:52 - Subjective Subjective: Patient was seen at bedside because she complained of head ache ,dizziness, vomited twice, frontal and vertex head ache, mild. BP was 165/64 Received tylenol in ER @ 12 MN States that tylenol does not help and requests tramodol. Has no other complaints. This 81 year old woman was admitted Has PMH of IDDM , CAd, HTN, CKD, chronic back pain, gi bleeding, cholelithiasis , gastric AVM, right hemicolectomy, angioplasty. Objective - Vital Signs/Intake and Output Vital Signs (last 24 hours): Temp Pulse Resp BP Pulse Ox 98.2 F 74 16 126/84 98 01/24/17 18:32 01/25/17 00:30 01/25/17 00:30 01/24/17 22:51 01/25/17 00:30 - Medications Medications: Current Medications Amlodipine Besylate (Norvasc) 10 mg PO DAILY [facility] Aspirin (Aspirin Chewable) 81 mg PO DAILY [facility] Lactated Ringer's (Lactated Ringer's) 1,000 mls @ 65 mls/hr IV .[id number] [facility] Last Admin: 01/25/17 02:25 Dose: 65 mls/hr Isosorbide Mononitrate (Imdur) 60 mg PO DAILY JAK Pantoprazole Sodium (Protonix Ec Tab) 20 mg PO 0600 [facility] - Labs Labs: PT 12.6 Seconds (9.9-11.8) H 01/24/17 19:40 INR 1.17 (0.93-1.08) H 01/24/17 19:40 APTT 27.3 Seconds (23.7-30.8) 01/24/17 19:40 - Constitutional Appears: Well, No Acute Distress - Head Exam Head Exam: ATRAUMATIC, NORMAL INSPECTION, NORMOCEPHALIC - Eye Exam Eye Exam: Normal appearance - ENT Exam ENT Exam: Normal External Ear Exam - Neck Exam Neck Exam: Normal Inspection - Respiratory Exam Respiratory Exam: NORMAL BREATHING PATTERN - Cardiovascular Exam Cardiovascular Exam: absent: JVD - GI/Abdominal Exam GI & Abdominal Exam: absent: Distended - Rectal Exam Rectal Exam: Deferred - Exam Additional comments: Deferred. - Extremities Exam Extremities Exam: Normal Inspection - Back Exam Back Exam: NORMAL INSPECTION - Neurological Exam Neurological Exam: Alert, Awake - Psychiatric Exam Psychiatric exam: Normal Affect, Normal Mood - Skin Skin Exam: Normal Color Assessment and Plan - Assessment and Plan (Free Text) Assessment: Headache. Anemia. Thrombocytopenia Hx CAD. HTN. DM II. CKD. Plan: Tramodol 50 mg PO stat. Continue present management.
[2017-01-25 03:16] VITALS: RESP 20; BMI 24.0
[2017-01-25] MEDS ORDERED: Pneumococcal 23-Valent Vaccine IM ONE (03:16)
--- NOTE | 2017-01-25 05:26 | CP.PCM.CON ---
History of Present Illness - History of Present Illness History of Present Illness: Surgery: Dr. Riojas CC: dizziness Reason for consult: cholelithiasis HPI: Patient is an 81 y/o female who presents complaining of dzziness for the past day or 2. She states she feels like her head is spinning. She reports associated nausea and 2 episodes of emesis. She denies any other symptoms at this time. She denies fever, chills, abdominal pain. She states she has been told she has gallstones before. She states she has had pain in the past which has gone away on its own. Upon review of chart, patient was hospitalized back in August of this year for pain. She underwent full evaluation w/ U/S and HIDA scan to r/o cholecystitis. At this time HIDA scan was negative. She states currently that she is too old to have surgery and does not want it if unnecessary. PMHx: HTN, CAD, IDDM, CKD, chronic back pain, thrombocytopenia, GI bleed w/ gastric AVM PSHx: Right willi-colectomy, recent 07/21 cardiac angioplasty w/ stenting SHx: denies tobacco, EtOH, ir drug use. Review of Systems - Review of Systems All systems: reviewed and no additional remarkable complaints except Review of Systems: unless stated in HPI Past Patient History - Infectious Disease Hx of Infectious Diseases: None - Tetanus Immunizations Tetanus Immunization: Unknown - Past Social History Smoking Status: Never Smoked - CARDIAC Hx Cardiac Disorders: Yes Hx Cardia Arrhythmia: Yes Hx Congestive Heart Failure: Yes Hx Hypertension: Yes - PULMONARY Hx Respiratory Disorders: No - NEUROLOGICAL Hx Neurological Disorder: No - HEENT Hx HEENT Problems: No - RENAL Hx Chronic Kidney Disease: No - ENDOCRINE/METABOLIC Hx Endocrine Disorders: Yes Hx Diabetes Mellitus Type 2: Yes - HEMATOLOGICAL/ONCOLOGICAL Hx Blood Disorders: Yes Hx Hepatitis B: Yes (patient not aware) Hx Shingles: Yes - INTEGUMENTARY Hx Dermatological Problems: No Other/Comment: Hx of R foot infection patient not sure of what kind of infection - MUSCULOSKELETAL/RHEUMATOLOGICAL Hx Musculoskeletal Disorders: Yes Hx Arthritis: Yes (right leg) Hx Falls: No - GASTROINTESTINAL Hx Gastrointestinal Disorders: Yes (gi bleed) - GENITOURINARY/GYNECOLOGICAL Hx Genitourinary Disorders: No - PSYCHIATRIC Hx Psychophysiologic Disorder: Yes Hx Anxiety: No (denied) - SURGICAL HISTORY Hx Surgeries: Yes Hx Amputation: No Hx Appendectomy: Yes Hx Cardiac Catheterization: Yes Hx Coronary Stent: Yes Other/Comment: colon sx 2015 , C section x3, appendectomy - ANESTHESIA Hx Anesthesia: Yes Hx Anesthesia Reactions: No Hx Malignant Hyperthermia: No Meds Allergies/Adverse Reactions: Allergies Allergy/AdvReac Type Severity Reaction Status Date / Time shellfish derived Allergy RASH Verified 01/24/17 18:26 - Medications Medications: Current Medications Amlodipine Besylate (Norvasc) 10 mg PO DAILY [facility] Aspirin (Aspirin Chewable) 81 mg PO DAILY [facility] Lactated Ringer's (Lactated Ringer's) 1,000 mls @ 65 mls/hr IV .[id number] [facility] Last Admin: 01/25/17 02:25 Dose: 65 mls/hr Isosorbide Mononitrate (Imdur) 60 mg PO DAILY [facility] Pantoprazole Sodium (Protonix Ec Tab) 20 mg PO 0600 [facility] Physical Exam - Constitutional Appears: Non-toxic, No Acute Distress - Head Exam Head Exam: ATRAUMATIC, NORMOCEPHALIC - Eye Exam Eye Exam: EOMI, Normal appearance - ENT Exam ENT Exam: Mucous Membranes Moist - Respiratory Exam Respiratory Exam: NORMAL BREATHING PATTERN. absent: Respiratory Distress - Cardiovascular Exam Cardiovascular Exam: REGULAR RHYTHM. absent: Tachycardia - GI/Abdominal Exam GI & Abdominal Exam: Soft. absent: Distended, Guarding, Rebound, Rigid, Tenderness - Extremities Exam Extremities exam: Positive for: normal inspection. Negative for: calf tenderness - Neurological Exam Neurological exam: Alert, Oriented x3 - Psychiatric Exam Psychiatric exam: Normal Affect, Normal Mood - Skin Skin Exam: Dry, Normal Color, Warm Results - Vital Signs Recent Vital Signs: Last Vital Signs Temp 97.9 F 01/25/17 01:49 Pulse 71 01/25/17 01:49 Resp 20 01/25/17 01:49 BP 164/65 H 01/25/17 01:49 Pulse Ox 98 01/25/17 00:30 - Labs Result Diagrams: 01/24/17 19:40 01/24/17 19:40 Labs: Laboratory Results - last 24 hr 01/25/17 01:43 POC Glucose (mg/dL) 137 H Assessment & Plan - Assessment and Plan (Free Text) Assessment: 81 y/o female w/ dizziness and history of gallstones Plan: -u/s on this admission changed from prior, now with fluid and wall thickening however patient is asymptomatic -will repeat HIDA to r/o cholecystitis -NPO for HIDA -IVFs -patient verbalizes preferance of avoiding surgery if possible -f/u am labs -medical management per primary -further recs per Dr. Shine Juarez PGY3
[2017-01-25] MEDS: Pantoprazole 20 mg EC Tab PO SCH (05:37)
[2017-01-25 06:06] LABS: HEMATOCRIT 37.2 % (36.0-48.0); MEAN CELL VOLUME 97.6 fl (80.0-105.0); MEAN CORPUSCULAR HEMOGLOBIN 33.1 pg (25.0-35.0); MEAN CORPUSCULAR HGB CONC 33.9 g/dl (31.0-37.0); MEAN PLATELET VOLUME 11.3 fl (7.0-11.0); RED CELL DISTRIBUTION WIDTH 15.5 % (11.5-14.5); WHITE BLOOD COUNT 6.9 10^3/ul (4.5-11.0)
[2017-01-25 06:34] LABS: BILIRUBIN,TOTAL 0.6 mg/dL (0.2-1.3); CALCIUM 8.6 mg/dL (8.4-10.5); POTASSIUM 4.1 mmol/L (3.6-5.0); TOTAL PROTEIN 6.5 g/dL (5.8-8.3)
--- NOTE | 2017-01-25 07:27 | CP.PCM.HP ---
<Beth Luis - Last Filed: 01/25/17 15:41> History of Present Illness - History of Present Illness History of Present Illness: CC: Dizziness, nausea and vomiting. Patient is an 81 y/o with pmh of HTN, CAD, IDDM, CKD, chronic back pain, thrombocytopenia, GI bleed w/ gastric AVM, h/o transaminitis presented with dizziness, nausea and vomiting for 1 day. Patient states last night when she tries to get up from a sitting position she felt dizzy, with room spinning, along with headache. Denies tinnitus, denies photophobia. This is the first time patient felt this way. Patient states few hours after that she felt nauseous and vomited twice. The vomitus was non bilious and non bloody. Patient denies abdominal pain, denies diarrhea, dysurea, bloating. Patient states currently the dizziness and headache has resolved. Patient denies chest pain, sob, and palpitations. Patient had CT abdomen in the ED which revealed gallstones and pericholecystic fluid, along with transaminitis on CMP. Thus patient was admitted for further evaluation. PMHx: HTN, CAD, IDDM, CKD, chronic back pain, thrombocytopenia, GI bleed w/ gastric AVM PSHx: Right hemicolectomy, recent 07/21 cardiac angioplasty w/ stenting FMHx: mom and dad of old age. SHx: denies tobacco, lcohol and illicit drug use. . Present on Admission - Present on Admission Any Indicators Present on Admission: No History of DVT/PE: No History of Uncontrolled Diabetes: No Urinary Catheter: No Decubitus Ulcer Present: No Review of Systems - Review of Systems All systems: reviewed and no additional remarkable complaints except Review of Systems: As per HPI. Past Patient History - Infectious Disease Hx of Infectious Diseases: None - Tetanus Immunizations Tetanus Immunization: Unknown - Past Social History Smoking Status: Never Smoked Alcohol: None Drugs: Denies Home Situation {Lives}: With Family - CARDIAC Hx Cardiac Disorders: Yes Hx Cardia Arrhythmia: Yes Hx Congestive Heart Failure: Yes Hx Hypertension: Yes - PULMONARY Hx Respiratory Disorders: No - NEUROLOGICAL Hx Neurological Disorder: No - HEENT Hx HEENT Problems: No - RENAL Hx Chronic Kidney Disease: No - ENDOCRINE/METABOLIC Hx Endocrine Disorders: Yes Hx Diabetes Mellitus Type 2: Yes - HEMATOLOGICAL/ONCOLOGICAL Hx Blood Disorders: Yes Hx Hepatitis B: Yes (patient not aware) Hx Shingles: Yes - INTEGUMENTARY Hx Dermatological Problems: No Other/Comment: Hx of R foot infection patient not sure of what kind of infection - MUSCULOSKELETAL/RHEUMATOLOGICAL Hx Musculoskeletal Disorders: Yes Hx Arthritis: Yes (right leg) Hx Falls: No - GASTROINTESTINAL Hx Gastrointestinal Disorders: Yes (gi bleed) - GENITOURINARY/GYNECOLOGICAL Hx Genitourinary Disorders: No - PSYCHIATRIC Hx Psychophysiologic Disorder: Yes Hx Anxiety: No (denied) - SURGICAL HISTORY Hx Surgeries: Yes Hx Amputation: No Hx Appendectomy: Yes Hx Cardiac Catheterization: Yes Hx Coronary Stent: Yes Other/Comment: colon sx 2014 , C section x3, appendectomy - ANESTHESIA Hx Anesthesia: Yes Hx Anesthesia Reactions: No Hx Malignant Hyperthermia: No Meds Allergies/Adverse Reactions: Allergies Allergy/AdvReac Type Severity Reaction Status Date / Time shellfish derived Allergy RASH Verified 01/24/17 18:26 Physical Exam - Constitutional Appears: No Acute Distress - Head Exam Head Exam: ATRAUMATIC, NORMAL INSPECTION, NORMOCEPHALIC - Eye Exam Eye Exam: EOMI, Normal appearance, PERRL. absent: Scleral icterus Pupil Exam: NORMAL ACCOMODATION, PERRL - ENT Exam ENT Exam: Mucous Membranes Moist, Normal Exam - Neck Exam Neck exam: Positive for: Full Rom, Normal Inspection - Respiratory Exam Respiratory Exam: Clear to Auscultation Bilateral, NORMAL BREATHING PATTERN. absent: Rales, Rhonchi, Wheezes, Respiratory Distress, Stridor - Cardiovascular Exam Cardiovascular Exam: REGULAR RHYTHM, RRR, +S1, +S2. absent: Systolic Murmur - GI/Abdominal Exam GI & Abdominal Exam: Hernia, Normal Bowel Sounds, Soft. absent: Distended, Firm , Guarding, Rigid, Tenderness - Extremities Exam Extremities exam: Positive for: normal inspection. Negative for: pedal edema, tenderness - Back Exam Back exam: NORMAL INSPECTION - Neurological Exam Neurological exam: Alert, Oriented x3, Reflexes Normal - Psychiatric Exam Psychiatric exam: Normal Affect, Normal Mood - Skin Skin Exam: Dry, Intact, Normal Color, Warm Results - Vital Signs Recent Vital Signs: Last Vital Signs Temp 97.9 F 01/25/17 01:49 Pulse 71 01/25/17 01:49 Resp 20 01/25/17 01:49 BP 164/65 H 01/25/17 01:49 Pulse Ox 98 01/25/17 00:30 - Labs Result Diagrams: 01/25/17 05:20 01/25/17 05:20 Labs: Laboratory Results - last 24 hr 01/25/17 01/25/17 01/25/17 01:43 05:20 05:20 WBC 6.9 RBC 3.81 Hgb 12.6 Hct 37.2 MCV 97.6 MCH 33.1 MCHC 33.9 RDW 15.5 H Plt Count 101 L MPV 11.3 H Sodium 142 Potassium 4.1 Chloride 109 H Carbon Dioxide 24 Anion Gap 13 BUN 22 H Creatinine 1.2 Est GFR ( Amer) 52 Est GFR (Non-Af Amer) 43 POC Glucose (mg/dL) 137 H Random Glucose 173 H Calcium 8.6 Total Bilirubin 0.6 AST 76 H ALT 71 H Alkaline Phosphatase 154 H Total Protein 6.5 Albumin 3.3 Globulin 3.2 Albumin/Globulin Ratio 1.0 L Assessment & Plan - Assessment and Plan (Free Text) Assessment: 1) Episode of dizziness likely vertigo. 2) Transminitis likely 2nd to cholelithiasis. 3) CKD 4) HTN, 5) CAD, 6) IDDM, 7) chronic back pain, 8) Thrombocytopenia 9) h/o AVM malformation Plan: CT head negative for acute ischemic changes. Dizziness has resolved. Will consider meclizine CT abdomen with cholelithiasis. Surgery consulted. Patient made NPO pending HIDA scan. LR@ 65 cc/hr as per surgery. Will continue Norvasc for htn. Patient is on ASA and imdur for angina. SCD for dvt prophylaxis, and protonix for gi prophylaxis. Patient seen, examined and case discussed with Dr Rosenthal. - Date & Time Date: 01/25/17 Time: 07:35 <Gamal Rosenthal - Last Filed: 01/25/17 20:21> Results - Vital Signs Recent Vital Signs: Last Vital Signs Temp 97.4 F L 01/25/17 15:59 Pulse 92 H 01/25/17 15:59 Resp 20 01/25/17 15:59 BP 138/73 01/25/17 15:59 Pulse Ox 99 01/25/17 15:59 - Labs Result Diagrams: 01/25/17 05:20 01/25/17 05:20 Labs: Laboratory Results - last 24 hr 01/25/17 01/25/17 01/25/17 01:43 05:20 05:20 WBC 6.9 RBC 3.81 Hgb 12.6 Hct 37.2 MCV 97.6 MCH 33.1 MCHC 33.9 RDW 15.5 H Plt Count 101 L MPV 11.3 H Sodium 142 Potassium 4.1 Chloride 109 H Carbon Dioxide 24 Anion Gap 13 BUN 22 H Creatinine 1.2 Est GFR ( Amer) 52 Est GFR (Non-Af Amer) 43 POC Glucose (mg/dL) 137 H Random Glucose 173 H Calcium 8.6 Total Bilirubin 0.6 AST 76 H ALT 71 H Alkaline Phosphatase 154 H Total Protein 6.5 Albumin 3.3 Globulin 3.2 Albumin/Globulin Ratio 1.0 L Assessment & Plan - Assessment and Plan (Free Text) Plan: Pt seen and examined. Agree with above not of resident. Labs reviewed. Spoke to ER attending.
--- NOTE | 2017-01-25 07:50 | RAD ---
HISTORY: dizzy COMPARISON: 12/22/2016 FINDINGS: LUNGS: No active pulmonary disease. PLEURA: No significant pleural effusion identified, no pneumothorax apparent. CARDIOVASCULAR: Normal. OSSEOUS STRUCTURES: No significant abnormalities. VISUALIZED UPPER ABDOMEN: Normal. OTHER FINDINGS: None. IMPRESSION: No active disease.
--- NOTE | 2017-01-25 13:06 | NM ---
PROCEDURE: Nuclear Medicine Hepatobiliary Scan HISTORY: r/o cholecystitis COMPARISON: None available. TECHNIQUE: 5.7 mCi of technetium 99m Mebrofenin was administered intravenously. Planar images of the abdomen were obtained at 5 min intervals to 60 mins. Delayed images were also obtained. FINDINGS: LIVER: Timely and homogenous uptake. COMMON BILE DUCT: identified at 15 mins. GALLBLADDER: identified at 30 mins. SMALL BOWEL: Identified at 15 mins. IMPRESSION: Normal Hepatobiliary Scan. The cystic duct is patent.
--- NOTE | 2017-01-25 20:05 | CARD ---
APPROVED REPORT EKG Measurement Heart [id number] <Conclusion> Junctional rhythm with retrograde conduction Incomplete left bundle branch block Nonspecific ST abnormality Abnormal ECG
[2017-01-26] MEDS: Pantoprazole 20 mg EC Tab PO SCH (05:46)
[2017-01-26 06:03] LABS: BASO # 0.03 K/mm3 (0.0-2.0); BASO % 0.7 % (0.0-3.0); EOS # 0.3 (0.0-0.7); EOS % 5.8 % (1.5-5.0); GRAN # 2.39 (1.4-6.5); GRAN % 53.6 % (50.0-68.0); HEMATOCRIT 34.1 % (36.0-48.0); LYMPH # 1.3 (1.2-3.4); LYMPH % 29.1 % (22.0-35.0); MEAN CELL VOLUME 98.6 fl (80.0-105.0); MEAN CORPUSCULAR HEMOGLOBIN 32.9 pg (25.0-35.0); MEAN CORPUSCULAR HGB CONC 33.4 g/dl (31.0-37.0); MONO # 0.5 (0.1-0.6); MONO % 10.8 % (1.0-6.0); RED CELL DISTRIBUTION WIDTH 15.5 % (11.5-14.5); WHITE BLOOD COUNT 4.5 10^3/ul (4.5-11.0)
[2017-01-26 06:12] LABS: BILIRUBIN,TOTAL 0.8 mg/dL (0.2-1.3); CALCIUM 8.6 mg/dL (8.4-10.5); POTASSIUM 4.4 mmol/L (3.6-5.0); TOTAL PROTEIN 6.1 g/dL (5.8-8.3)
[2017-01-26 07:44] VITALS: BP 140/60; PULSE 83; TEMP 98.4; O2SAT 100
--- NOTE | 2017-01-26 08:04 | CP.PCM.DIS ---
Provider - Provider Date of Admission: 01/24/17 23:19 Attending physician: Gamal Rosenthal MD Primary care physician: Harsh Morataya MD Consults: Surgery: Dr Riojas. Time Spent in preparation of Discharge (in minutes): 45 Diagnosis - Discharge Diagnosis (1) Vertigo Status: Resolved (2) Cholelithiasis Status: Acute (3) Elevated LFTs Status: Acute (4) Thrombocytopenia Status: Chronic (5) IDDM (insulin dependent diabetes mellitus) Status: Chronic (6) HTN (hypertension) Status: Chronic (7) CAD (coronary artery disease) Status: Chronic (8) CKD (chronic kidney disease) Status: Chronic Hospital Course - Lab Results Lab Results: Most Recent Lab Values WBC 4.5 10^3/ul (4.5-11.0) D 01/26/17 05:30 RBC 3.46 10^6/uL (3.5-6.1) L 01/26/17 05:30 Hgb 11.4 g/dL (12.0-16.0) L 01/26/17 05:30 Hct 34.1 % (36.0-48.0) L 01/26/17 05:30 MCV 98.6 fl (80.0-105.0) 01/26/17 05:30 MCH 32.9 pg (25.0-35.0) 01/26/17 05:30 MCHC 33.4 g/dl (31.0-37.0) 01/26/17 05:30 RDW 15.5 % (11.5-14.5) H 01/26/17 05:30 Plt Count 91 10^3/uL (120.0-450.0) L 01/26/17 05:30 MPV 11.0 fl (7.0-11.0) 01/26/17 05:30 Gran % 53.6 % (50.0-68.0) 01/26/17 05:30 Lymph % (Auto) 29.1 % (22.0-35.0) 01/26/17 05:30 [place] % (Auto) 10.8 % (1.0-6.0) H 01/26/17 05:30 Eos % (Auto) 5.8 % (1.5-5.0) H 01/26/17 05:30 Baso % (Auto) 0.7 % (0.0-3.0) 01/26/17 05:30 Gran # 2.39 (1.4-6.5) 01/26/17 05:30 Lymph # 1.3 (1.2-3.4) 01/26/17 05:30 [place] # 0.5 (0.1-0.6) 01/26/17 05:30 Eos # 0.3 (0.0-0.7) 01/26/17 05:30 Baso # 0.03 K/mm3 (0.0-2.0) 01/26/17 05:30 PT 12.6 Seconds (9.9-11.8) H 01/24/17 19:40 INR 1.17 (0.93-1.08) H 01/24/17 19:40 APTT 27.3 Seconds (23.7-30.8) 01/24/17 19:40 Sodium 139 mmol/L (132-148) 01/26/17 05:30 Potassium 4.4 mmol/L (3.6-5.0) 01/26/17 05:30 Chloride 106 mmol/L (95-110) 01/26/17 05:30 Carbon Dioxide 25 mmol/L (21-33) 01/26/17 05:30 Anion Gap 12 (10-20) 01/26/17 05:30 BUN 26 mg/dL (7-21) H 01/26/17 05:30 Creatinine 1.3 mg/dL (0.5-1.4) 01/26/17 05:30 Est GFR ( Amer) 47 01/26/17 05:30 Est GFR (Non-Af Amer) 39 01/26/17 05:30 POC Glucose (mg/dL) 137 mg/dL (65-110) H 01/25/17 01:43 Random Glucose 245 mg/dL (70-110) H 01/26/17 05:30 Calcium 8.6 mg/dL (8.4-10.5) 01/26/17 05:30 Magnesium 2.2 mg/dL (1.7-2.2) 01/24/17 19:40 Total Bilirubin 0.8 mg/dL (0.2-1.3) 01/26/17 05:30 AST 54 U/L (15-39) H 01/26/17 05:30 ALT 59 U/L (7-56) H 01/26/17 05:30 Alkaline Phosphatase 139 U/L (38-133) H 01/26/17 05:30 Lactate Dehydrogenase 591 U/L (333-699) 01/24/17 19:40 Total Creatine Kinase 27 U/L (35-230) L 01/24/17 19:40 Troponin I 0.02 ng/mL D 01/24/17 19:40 Total Protein 6.1 g/dL (5.8-8.3) 01/26/17 05:30 Albumin 3.1 g/dL (3.0-4.8) 01/26/17 05:30 Globulin 3.0 gm/dL 01/26/17 05:30 Albumin/Globulin Ratio 1.0 (1.1-1.8) L 01/26/17 05:30 Lipase 125 U/L (23-300) 01/24/17 19:40 Urine Color Yellow (YELLOW) 01/24/17 19:40 Urine Appearance Clear (CLEAR) 01/24/17 19:40 Urine pH 6.0 (4.7-8.0) 01/24/17 19:40 Ur Specific [place] 1.020 (1.005-1.035) 01/24/17 19:40 Urine Protein 100 mg/dL (<30 mg/dL) H 01/24/17 19:40 Urine Glucose (UA) 100 mg/dL (NEGATIVE) H 01/24/17 19:40 Urine Ketones Negative mg/dL (NEGATIVE) 01/24/17 19:40 Urine Blood Small (NEGATIVE) H 01/24/17 19:40 Urine Nitrate Negative (NEGATIVE) 01/24/17 19:40 Urine Bilirubin Negative (NEGATIVE) 01/24/17 19:40 Urine Urobilinogen 0.2 E.U./dL (<1 E.U./dL) 01/24/17 19:40 Ur Leukocyte Esterase Negative [place]/uL (NEGATIVE) 01/24/17 19:40 Urine RBC 2 - 5 /hpf (0-2) 01/24/17 19:40 Urine WBC 0 - 2 /hpf (0-6) 01/24/17 19:40 Ur Epithelial Cells 0 - 2 /hpf (0-5) 01/24/17 19:40 Urine Bacteria Few (NEG) 01/24/17 19:40 - Hospital Course Hospital Course: Patient is an 81 y/o F with pmh of HTN, CAD, IDDM, CKD, chronic back pain, thrombocytopenia, GI bleed w/ gastric AVM, h/o transaminitis presented with dizziness, nausea and vomiting for [address] head was negative for acute ischemic changes. Basic labs revealed transaminitis. Electrolytes was normal, with creatinine at baseline. Patient was given IV hydration. Patient had CT abdomen/pelvis in the ED which revealed gallstones, and pericholecystitic fluid. Surgery was consulted and recommended HIDA scan. Thus patient was admitted for observation on med/surg. HIDA scan was normal. Patient's dizziness resolved, patient was able to walk to the restroom without difficulties. Patient reported the nausea and vomiting has also resolved. Transaminitis only improved slightly. In reviewing patient's old records, it appears patient has history of recurrent transaminitis over the years, had hep panel in the past with normal result, CT abdomen revealed irregular contour of the liver. Patient reports she normally follows with Dr Arizmendi as outpatient. Patient advised to schedule an appointment to follow up. Patient to be discharged, to follow up with Dr Rosenthal in [address] Arizmendi. Patient advised to avoid fatty foods. - Date & Time of H&P Date of H&P: 01/25/17 Time of H&P: 07:25 Discharge Exam - Head Exam Head Exam: ATRAUMATIC, NORMAL INSPECTION, NORMOCEPHALIC - Eye Exam Eye Exam: EOMI, Normal appearance, PERRL. absent: Scleral icterus Pupil Exam: NORMAL ACCOMODATION, PERRL - ENT Exam ENT Exam: Mucous Membranes Moist - Neck Exam Neck exam: Normal Inspection - Respiratory Exam Respiratory Exam: Clear to PA & Lateral, NORMAL BREATHING PATTERN, UNREMARKABLE. absent: Prolonged Expiratory Phase, Rales, Rhonchi, Wheezes, Respiratory Distress, Stridor - Cardiovascular Exam Cardiovascular Exam: REGULAR RHYTHM, RRR, +S1, +S2. absent: Gallop, Rubs, Systolic Murmur - GI/Abdominal Exam GI & Abdominal Exam: Normal Bowel Sounds, Unremarkable. absent: Distended, Firm , Guarding, Rigid, Soft, Tenderness - Extremities Exam Extremities exam: normal inspection - Back Exam Back exam: NORMAL INSPECTION - Neurological Exam Neurological exam: Alert, Oriented x3 - Psychiatric Exam Psychiatric exam: Normal Affect, Normal Mood - Skin Skin Exam: Dry, Intact, Normal Color, Warm Discharge Plan - Follow Up Plan Condition: FAIR Disposition: HOME/ ROUTINE Patient education suggested?: Yes Instructions: Vertigo (DC), Myelodysplastic Syndromes (DC) Additional Instructions: Please continue all your home medications. Follow up with Dr Rosenthal in 1 week. Follow up with your outpatient coding specialist, Dr Arizmendi Please come back if you experience fever, chills, chest pain and/or shortness of breath. Referrals: Harsh Morataya MD [Primary Care Provider] - Sandoval Arizmendi MD [Staff Provider] -
== END 2017-01-26 15:24 | disposition home or self-care (01) ==
LOC: ED 18:12 → ERH 23:19 → 3RNO 01-25 01:11
PROVIDERS: ADMIT Internal Medicine Nephrology; ATTEND Internal Medicine Nephrology
DX: R42 Dizziness and giddiness (principal); K80.20 Calculus of gallbladder without cholecystitis without obstruction; D69.6 Thrombocytopenia, unspecified; I13.10 Hypertensive heart and chronic kidney disease without heart failure, with stage 1 through stage 4 chronic kidney disease, or unspecified chronic kidney disease; I50.9 Heart failure, unspecified; E11.22 Type 2 diabetes mellitus with diabetic chronic kidney disease; N18.9 Chronic kidney disease, unspecified; I25.10 Atherosclerotic heart disease of native coronary artery without angina pectoris; R79.89 Other specified abnormal findings of blood chemistry; Z79.82 Long term (current) use of aspirin; Z79.84 Long term (current) use of oral hypoglycemic drugs
CPT/HCPCS: 36415; 70450; 71010; 74176; 76700; 78227; 80053; 81001; 82550; 82948; 83615; 83690; 83735; 84484; 85025; 85027; 85610; 85730; 87040; 87086; 93005; 96374; 99285; A9537; G0378; J0696; J2405; J2765; J7040; J7120

== ENCOUNTER 2017-11-04 19:40 | Inpatient (IN) | payer MEDICARE, OTHER ==
[2017-11-04 19:47] VITALS: BMI 24.1
[2017-11-04] MEDS ORDERED: Albuterol-Ipratrop 3 mg / 0.5 (3 ml) UD IH STA ×2 (19:55→20:25)
--- NOTE | 2017-11-04 20:09 | ED PDOC ---
Arrival/HPI - General Chief Complaint: Cough, Cold, Congestion Time Seen by Provider: 11/04/17 19:45 Historian: Patient - History of Present Illness Narrative History of Present Illness (Text): 11/04/17 20:06 82 year old female, whose PMH includes hypertension, CAD, diabetes, chronic kidney disease, GI bleed, with gastric AVM, COPD, who presents to the emergency department complaining of productive cough and yellow sputum for a couple of days associated with shortness of breath and chest discomfort and low grade fever. Patient denies any nausea, vomiting, diarrhea, abdominal pain. Patient has been using nebulizer treatment at home Time/Duration: < week Symptom Onset: Sudden Symptom Course: Unchanged Context: Home Past Medical History - Provider Review Nursing Documentation Reviewed: Yes - Infectious Disease Hx of Infectious Diseases: None - Tetanus Immunization Tetanus Immunization: Unknown - Reproductive Menopause: Yes - Cardiac Hx Cardiac Disorders: Yes Hx Cardiac Arrhythmia: Yes Hx Congestive Heart Failure: Yes Hx Hypertension: Yes - Pulmonary Hx Respiratory Disorders: No - Neurological Hx Neurological Disorder: No - HEENT Hx HEENT Disorder: No - Renal Hx Renal Disorder: No - Endocrine/Metabolic Hx Endocrine Disorders: Yes Hx Diabetes Mellitus Type 2: Yes - Hematological/Oncological Hx Blood Disorders: Yes Hx Hepatitis B: Yes (patient not aware) Hx Shingles: Yes - Integumentary Hx Dermatological Disorder: No Other/Comment: Hx of R foot infection patient not sure of what kind of infection - Musculoskeletal/Rheumatological Hx Musculoskeletal Disorders: Yes Hx Arthritis: Yes (right leg) Hx Falls: No - Gastrointestinal Hx Gastrointestinal Disorders: Yes (gi bleed) - Genitourinary/Gynecological Hx Genitourinary Disorders: No - Psychiatric Hx Psychophysiologic Disorder: Yes Hx Anxiety: No (denied) Hx Substance Use: No - Surgical History Hx Amputation: No Hx Appendectomy: Yes Hx Cardiac Catheterization: Yes Hx Coronary Stent: Yes Other/Comment: colon sx 2015 , C section x3, appendectomy - Anesthesia Hx Anesthesia: Yes Hx Anesthesia Reactions: No Hx Malignant Hyperthermia: No - Suicidal Assessment Feels Threatened In Home Enviroment: No Family/Social History - Physician Review Nursing Documentation Reviewed: Yes Family/Social History: Unknown Family HX Smoking Status: Never Smoked Hx Alcohol Use: No Hx Substance Use: No Hx Substance Use Treatment: No Allergies/Home Meds Allergies/Adverse Reactions: Allergies shellfish derived Allergy (Verified 11/04/17 20:06) RASH Home Medications: Home Meds Medication Instructions Recorded Confirmed GlipiZIDE [Glucotrol] 10 mg PO DAILY 01/21/15 11/05/17 Furosemide [Lasix] 20 mg PO DAILY 04/14/15 11/05/17 Amlodipine Besylate [Norvasc] 10 mg PO DAILY 08/23/15 11/05/17 Aspirin [Aspirin Chewable] 81 mg PO DAILY 08/23/15 11/05/17 Iron,Carbonyl [Feosol] 65 mg PO DAILY 08/23/15 11/05/17 Isosorbide Mononitrate [Imdur] 60 mg PO DAILY 08/23/15 11/05/17 Multivit-Min/FA/Lycopen/Lutein 1 tab PO DAILY 08/23/15 11/05/17 [Centrum Silver Tablet] Insulin Lispro Mix 75/25 [HumaLOG 20 units SC .BEFOREBREAKFAST 10/22/15 11/05/17 Mix 75/25] Insulin Lispro Mix 75/25 [HumaLOG 20 units SC .BEFOREDINNER 10/22/15 11/05/17 Mix 75/25] Nitroglycerin [Nitrostat SL Tab] 0.3 mg SL PRN PRN 07/27/16 11/05/17 Pantoprazole [Protonix EC Tab] 20 mg PO DAILY 07/27/16 11/05/17 Insulin Glargine,Hum.rec.anlog 20 unit SQ Q12 01/25/17 11/05/17 [Lantus] Insulin Lispro [Humalog (Insulin 12 unit SQ ACL 01/25/17 11/05/17 Lispro)] Review of Systems - Physician Review All systems were reviewed & negative as marked: Yes - Review of Systems Constitutional: absent: Fevers Respiratory: SOB, Cough, Sputum (yellow) Cardiovascular: Chest Pain (chest discomfort ) Gastrointestinal: absent: Abdominal Pain Genitourinary Female: absent: Dysuria Musculoskeletal: absent: Back Pain Skin: absent: Rash Neurological: absent: Headache Endocrine: absent: Diaphoresis Physical Exam Vital Signs Reviewed: Yes Vital Signs Temp Pulse Resp BP Pulse Ox 11/05/17 16:54 73 11/05/17 15:27 99.9 F H 72 21 141/57 L 11/05/17 14:45 149/57 L 11/05/17 13:24 101.7 F H 11/05/17 06:00 99.9 F H 72 21 141/57 L 97 11/05/17 03:27 75 11/05/17 03:26 77 20 143/49 L 97 11/05/17 01:52 85 11/05/17 01:39 98.2 F 84 20 132/64 95 11/05/17 00:32 87 17 153/60 H 96 11/04/17 22:00 167/61 H 11/04/17 19:46 98.3 F 80 20 179/80 H 100 Temperature: Afebrile Blood Pressure: Hypertensive Pulse: Regular Respiratory Rate: Normal Appearance: Positive for: Well-Appearing, Non-Toxic, Comfortable Pain Distress: None Mental Status: Positive for: Alert and Oriented X 3 - Systems Exam Head: Present: Atraumatic, Normocephalic Pupils: Present: PERRL Extroacular Muscles: Present: EOMI Conjunctiva: Present: Normal Mouth: Present: Moist Mucous Membranes Respiratory/Chest: Present: Decreased Breath Sounds (bilaterally ), Rhonchi ( scattered ). No: Clear to Auscultation, Good Air Exchange, Respiratory Distress , Accessory Muscle Use Cardiovascular: Present: Regular Rate and Rhythm, Normal S1, S2. No: Murmurs Abdomen: Present: Normal Bowel Sounds. No: Tenderness, Distention, Peritoneal Signs, Guarding Upper Extremity: Present: Normal Inspection, Normal ROM, NORMAL PULSES, Neurovascularly Intact, Capillary Refill < 2s. No: Cyanosis, Edema Lower Extremity: Present: Normal Inspection, NORMAL PULSES, Normal ROM, Neurovascularly Intact, Capillary Refill < 2 s. No: Edema, CALF TENDERNESS, Cyanosis, Tenderness Neurological: Present: GCS=15, CN II-XII Intact, Speech Normal Skin: Present: Warm, Dry, Normal Color. No: Rashes Psychiatric: Present: Alert, Oriented x 3, Normal Insight, Normal Concentration Medical Decision Making ED Course and Treatment: 11/04/17 Impression: 82 year old male with scattered rhonchi and bilateral decreased breath sounds complaining of cough with sputum associated with shortness of breath. Plan: -- EKG -- Labs -- Chest X-ray -- Urinalysis -- Reassess and disposition Progress Notes: Reviewed EKG, NSR at [address] bpm[address] Non-specific ST/T wave changes. 11/04/17 22:25 Chest X-ray reviewed, shows: Lungs: Mild lingular subsegmental atelectasis. Pleural space: Unremarkable. No pneumothorax. Heart: Unremarkable. No cardiomegaly. Mediastinum: Unremarkable. Bones/joints: Unremarkable. IMPRESSION: No acute findings. 11/04/17 22:[address] Rosenthal, covering for Dr. Morataya, who is aware and agrees with plan. Pt will be admitted to Telemetry for CHF and bronchitis under Dr. Morataya's service. Requests Dr. Moses on consult. 11/05/17 00:37 Repeat VBG reviewed, lactate: 5.7, glucose: 413. Case discussed with Dr. Shaw, who is aware and agrees to evaluate pt for possible ICU admission. 11/05/17 01:[address] Shaw, present in ER to evaluate pt. States pt can go Telemetry. - Lab Interpretations Lab Results: 11/04/17 19:55 11/04/17 19:55 Lab Results 11/04/17 19:55: Sodium 135, Chloride 102, Potassium 4.9, Carbon Dioxide 20 L, Anion Gap 18, BUN 28 H, Creatinine 1.5 H, Est GFR ( Amer) 40, Est GFR ( Non-Af Amer) 33, Random Glucose 306 H* D, Calcium 8.5, Phosphorus 3.7, Magnesium 2.4 H, Total Bilirubin 1.0, AST 62 H, ALT 43, Alkaline Phosphatase 136 H, Lactate Dehydrogenase 769 H, Total Creatine Kinase 47, Troponin I 0.03 D , NT-Pro-B Natriuret Pep 2870 H, Total Protein 7.3, Albumin 3.9, Globulin 3.4, Albumin/Globulin Ratio 1.1 11/04/17 19:55: pO2 166 H, VBG pH 7.40, VBG pCO2 31.0 L, VBG HCO3 19.2 L, VBG Total CO2 20.2 L, VBG O2 Sat (Calc) 99.8 H, VBG Base Excess -4.5 L, VBG Potassium 4.3, Sodium 132.0, Chloride 103.0, Glucose 360 H, Lactate 2.6 H, FiO2 21.0, Venous Blood Potassium 4.3 11/04/17 19:55: PT 14.2 H, INR 1.24 H, APTT 32.3 11/04/17 19:55: WBC 10.0 D, RBC 3.68, Hgb 12.6, Hct 35.8 L, MCV 97.3, MCH 34.2 , MCHC 35.2, RDW 13.4, Plt Count 104 L, MPV 11.9 H, Gran % 68.2 H, Lymph % (Auto ) 21.5 L, [place] % (Auto) 9.8 H, Eos % (Auto) 0.2 L, Baso % (Auto) 0.3, Gran # 6.85 H, Lymph # (Auto) 2.2, [place] # (Auto) 1.0 H, Eos # (Auto) 0.0, Baso # (Auto ) 0.03 I have reviewed the lab results: Yes - RAD Interpretation Radiology Orders: 11/04/17 19:54 CHEST PORTABLE [RAD] Stat Director Instrumentation: Radiologist - EKG Interpretation Interpreted by ED Physician: Yes Type: 12 lead EKG - Medication Orders Current Medication Orders: Acetaminophen (Tylenol 325mg Tab) 650 mg PO Q6H PRN PRN Reason: Fever >100.4 F Last Admin: 11/05/17 13:24 Dose: 650 mg [facility] Pain/Vitals Document 11/05/17 13:24 LM (Rec: 11/05/17 13:25 LM [id number] Vitals Temperature (97.6 F-99.6 F) 101.7 F Temperature Source Oral Amlodipine Besylate (Norvasc) 10 mg PO DAILY [facility] Last Admin: 11/05/17 14:45 Dose: 10 mg MAR Blood Pressure Document 11/05/17 14:45 MG (Rec: 11/05/17 14:46 MG [id number] Blood Pressure Blood Pressure (100/60-150/90) 149/57 Aspirin (Aspirin Chewable) 81 mg PO DAILY [facility] Last Admin: 11/05/17 14:44 Dose: 81 mg Glipizide (Glucotrol) 10 mg PO DAILY [facility] Last Admin: 11/05/17 14:44 Dose: 10 mg Guaifenesin/Dextromethorphan (Robitussin Dm) 10 ml PO Q6H PRN PRN Reason: Cough Last Admin: 11/05/17 13:25 Dose: 10 ml Hydralazine HCl (Apresoline) 10 mg IVP Q6H PRN PRN Reason: Systolic Blood Pressure Ceftriaxone Sodium (Rocephin 1 Gram Ivpb) 1 gm in 100 mls @ 100 mls/hr IVPB DAILY [facility] PRN Reason: Protocol Azithromycin (Zithromax 500mg In Ns) 500 mg in 250 mls @ 167 mls/hr IVPB DAILY [facility] PRN Reason: Protocol Last Admin: 11/05/17 14:46 Dose: 167 mls/hr eMAR Start Stop Document 11/05/17 14:46 MG (Rec: 11/05/17 14:47 MG [id number]) Intravenous Solution Start Date 11/05/17 Start Time 14:46 End Date 11/05/17 End time 16:15 Total Infusion Time 89 Insulin Human Lispro (Humalog Med) 0 units SC ACHS [facility] PRN Reason: Protocol Last Admin: 11/05/17 14:58 Dose: [facility] Blood Glucose Document 11/05/17 14:58 MG (Rec: 11/05/17 14:58 MG [id number]) Blood Glucose Finger Stick Blood Glucose (70-120) 236 Insulin Human Lispro (Humalog) 12 units SC ACL [facility] Last Admin: 11/05/17 14:59 Dose: [facility] Blood Glucose Document 11/05/17 14:59 MG (Rec: 11/05/17 14:59 MG [id number]) Blood Glucose Finger Stick Blood Glucose (70-120) 236 Insulin Lispro Protam/Lispro Human (Humalog Mix 75/25) 20 units SC ACB [facility] Insulin Lispro Protam/Lispro Human (Humalog Mix 75/25) 20 units SC .BEFOREDINNER [facility] Isosorbide Mononitrate (Imdur) 60 mg PO DAILY [facility] Last Admin: 11/05/17 14:44 Dose: 60 mg Levalbuterol HCl (Xopenex) 0.63 mg IH TIDRESP [facility] Pantoprazole Sodium (Protonix Ec Tab) 20 mg PO DAILY [facility] Last Admin: 11/05/17 14:45 Dose: 20 mg Discontinued Medications Albuterol/Ipratropium (Duoneb 3 Mg/0.5 Mg (3 Ml) Ud) 3 ml IH ONCE STA Stop: 11/04/17 19:56 Last Admin: 11/04/17 20:07 Dose: 3 ml Albuterol/Ipratropium (Duoneb 3 Mg/0.5 Mg (3 Ml) Ud) 3 ml IH ONCE STA Stop: 11/04/17 20:26 Last Admin: 11/04/17 20:58 Dose: 3 ml Albuterol/Ipratropium (Duoneb 3 Mg/0.5 Mg (3 Ml) Ud) 3 ml IH Q4H PRN PRN Reason: Shortness of Breath Last Admin: 11/05/17 16:50 Dose: 3 ml Aspirin (Aspirin Chewable) 81 mg PO STAT STA Stop: 11/05/17 01:30 Last Admin: 11/05/17 02:27 Dose: 81 mg Furosemide (Lasix) 40 mg IVP ONCE ONE Stop: 11/04/17 21:38 Last Admin: 11/04/17 22:00 Dose: 40 mg MAR Blood Pressure Document 11/04/17 22:00 IT (Rec: 11/04/17 22:01 IT [facility] Blood Pressure Blood Pressure (100/60-150/90) 167/61 IVP Administration Document 11/04/17 22:00 IT (Rec: 11/04/17 22:01 [id number] Charges for Administration # of IVP Administrations 1 Ceftriaxone Sodium (Rocephin 1 Gram Ivpb) 1 gm in 100 mls @ 200 mls/hr IV ONCE STA PRN Reason: Protocol Stop: 11/04/17 22:06 Last Admin: 11/04/17 22:00 Dose: 200 mls/hr eMAR Start Stop Document 11/04/17 22:00 IT (Rec: 11/04/17 22:00 IT [id number] Intravenous Solution Start Date 11/04/17 Start Time 22:00 Azithromycin (Zithromax 500mg In Ns) 500 mg in 250 mls @ 166.667 mls/hr IV STAT STA PRN Reason: Protocol Stop: 11/04/17 23:06 Last Admin: 11/05/17 00:29 Dose: 166.667 mls/hr eMAR Start Stop Document 11/05/17 00:29 IT (Rec: 11/05/17 00:29 IT [id number]) Intravenous Solution Start Date 11/05/17 Start Time 00:29 Insulin Human Regular (Humulin R) 6 units SC STAT STA Stop: 11/05/17 00:41 Last Admin: 11/05/17 01:12 Dose: 6 units Subcutaneous Administrations Document 11/05/17 01:12 SSE (Rec: 11/05/17 01:13 SSE [id number]) Injection Site MAR Injection Site Left Arm Charges for Administration # of Subcutaneous Administrations 1 Pneumococcal Polyvalent Vaccine (Pneumovax 23 Vaccine) 0.5 ml IM .ONCE ONE Stop: 11/05/17 15:51 - Scribe Statement The provider has reviewed the documentation as recorded by the Elizabeth Arrieta Provider Scribe Attestation: All medical record entries made by the Scribe were at my direction and personally dictated by me. I have reviewed the chart and agree that the record accurately reflects my personal performance of the history, physical exam, medical decision making, and the department course for this patient. I have also personally directed, reviewed, and agree with the discharge instructions and disposition. Disposition/Present on Arrival - Present on Arrival Any Indicators Present on Arrival: No History of DVT/PE: No History of Uncontrolled Diabetes: Yes Urinary Catheter: No History of Decub. Ulcer: No History Surgical Site Infection Following: None - Disposition Have Diagnosis and Disposition been Completed?: Yes Diagnosis: Congestive heart failure, Bronchitis, Pneumonia Disposition: HOSPITALIZED Disposition Time: 23:38 Patient Plan: Admission Patient Problems: Current Active Problems Problem Status Onset Bronchitis Acute Congestive heart failure Acute Condition: STABLE
[2017-11-04 20:22] LABS: VENOUS BLOOD GAS BASE EXCESS -4.5 mmol/L (0.0-2.0); VENOUS BLOOD GAS PO2 166 mm/Hg (30-55)
[2017-11-04 20:29] LABS: BASO # 0.03 K/mm3 (0.0-2.0); BASO % 0.3 % (0.0-3.0); EOS % 0.2 % (1.5-5.0); GRAN # 6.85 (1.4-6.5); GRAN % 68.2 % (50.0-68.0); HEMOGLOBIN 12.6 g/dL (12.0-16.0); LYMPH # 2.2 (1.2-3.4); LYMPH % 21.5 % (22.0-35.0); MEAN CELL VOLUME 97.3 fl (80.0-105.0); MEAN CORPUSCULAR HEMOGLOBIN 34.2 pg (25.0-35.0); MEAN CORPUSCULAR HGB CONC 35.2 g/dl (31.0-37.0); MEAN PLATELET VOLUME 11.9 fl (7.0-11.0); MONO % 9.8 % (1.0-6.0); RBC 3.68 10^6/uL (3.5-6.1); RED CELL DISTRIBUTION WIDTH 13.4 % (11.5-14.5)
[2017-11-04 20:36] LABS: INR 1.24 (0.93-1.08); PARTIAL THROMBOPLASTIN TIME 32.3 Seconds (25.1-36.5); PROTHROMBIN TIME 14.2 SECONDS (9.4-12.5)
[2017-11-04 20:52] LABS: ALB/GLOB RATIO 1.1 (1.1-1.8); ALBUMIN 3.9 g/dL (3.0-4.8); CALCIUM 8.5 mg/dL (8.4-10.5); TROPONIN I 0.03 ng/mL
[2017-11-04] MEDS ORDERED: cefTRIAXone 1 gm 1 GM/100 ML BAG IV STA (21:37)
[2017-11-04] MEDS ORDERED: Azithromycin 500MG/NS 250ml 500 MG/250 ML BAG IV STA (21:37)
[2017-11-05 00:28] LABS: URINE BILIRUBIN NEGATIVE (NEGATIVE); URINE BLOOD MODERATE (NEGATIVE); URINE GLUCOSE (UA) 500 mg/dL (NEGATIVE); URINE LEUKOCYTE ESTERASE NEGATIVE Leu/uL (NEGATIVE); URINE PROTEIN 100 mg/dL (<30 mg/dL); URINE UROBILINOGEN 0.2 E.U./dL (<1 E.U./dL)
[2017-11-05 00:28] LABS: VENOUS BLOOD GAS BASE EXCESS -6.6 mmol/L (0.0-2.0); VENOUS BLOOD GAS PO2 135 mm/Hg (30-55); VENOUS BLOOD PH 7.33 (7.32-7.43)
[2017-11-05 00:31] LABS: URINE APPEARANCE CLEAR (CLEAR); URINE COLOR YELLOW (YELLOW)
[2017-11-05] MEDS ORDERED: Insulin Regular 1 UNITS/0.01 ML ML SC STA ×2 (00:34→00:40)
[2017-11-05 00:47] LABS: URINE EPITHELIAL CELLS 0 - 2 /hpf (0-5); URINE WBC 0 - 2 /hpf (0-6)
[2017-11-05] MEDS: Albuterol-Ipratrop 3 mg / 0.5 (3 ml) UD IH PRN ×2 (01:53→16:50)
--- NOTE | 2017-11-05 02:05 | CP.PCM.CON ---
<MishaSarah - Last Filed: 11/05/17 01:50> History of Present Illness - History of Present Illness History of Present Illness: ICU Consult Note Patient is an 82 year old female with a past medical history of HTN, DM, CAD ( with 1 stent), GI AVM and past GI bleed, CKD, and COPD who presents with 2 day history of productive cough with associated left sided chest pain, SOB, and subjective fever. Patient says this came on gradually after waking up and the first time she coughed her sputum looked dark brown but that cleared and it is now white. She says she took her temperature yesterday and it was 100.0 which she thought to be a fever. Patient says the chest pain came on gradually as well with the cough and was relieved with Tylenol. She denies radiation of the chest pain and says she is not currently having the pain. She admits to associated dizziness occasionally, sore throat, headache, 1 episode of nonbloody /bilious vomiting, and bilateral lower extremity pain. Patient denies chills, sinus pressure, dysphagia, palpitations, abdominal pain, nausea, diarrhea, constipation, dysuria, and lower extremity swelling. PMH: HTN, DM, CAD (with 1 stent), GI AVM and past GI bleed, CKD, and COPD Meds: reviewed, see JIMBO Allergies: cipro (reaction: "itchy and headache") PSH: unspecified colon surgery for GI bleed, Cardiac cath with 1 stent placed SH: denies smoking, alcohol, and elicit drug use Review of Systems - Review of Systems All systems: reviewed and no additional remarkable complaints except (as per HPI ) Past Patient History - Infectious Disease Hx of Infectious Diseases: None - Tetanus Immunizations Tetanus Immunization: Unknown - Past Social History Smoking Status: Never Smoked - CARDIAC Hx Cardiac Disorders: Yes Hx Cardia Arrhythmia: Yes Hx Congestive Heart Failure: Yes Hx Hypertension: Yes - PULMONARY Hx Respiratory Disorders: No - NEUROLOGICAL Hx Neurological Disorder: No - HEENT Hx HEENT Problems: No - RENAL Hx Chronic Kidney Disease: No - ENDOCRINE/METABOLIC Hx Endocrine Disorders: Yes Hx Diabetes Mellitus Type 2: Yes - HEMATOLOGICAL/ONCOLOGICAL Hx Blood Disorders: Yes Hx Hepatitis B: Yes (patient not aware) Hx Shingles: Yes - INTEGUMENTARY Hx Dermatological Problems: No Other/Comment: Hx of R foot infection patient not sure of what kind of infection - MUSCULOSKELETAL/RHEUMATOLOGICAL Hx Musculoskeletal Disorders: Yes Hx Arthritis: Yes (right leg) Hx Falls: No - GASTROINTESTINAL Hx Gastrointestinal Disorders: Yes (gi bleed) - GENITOURINARY/GYNECOLOGICAL Hx Genitourinary Disorders: No - PSYCHIATRIC Hx Psychophysiologic Disorder: Yes Hx Anxiety: No (denied) Hx Substance Use: No - SURGICAL HISTORY Hx Amputation: No Hx Appendectomy: Yes Hx Cardiac Catheterization: Yes Hx Coronary Stent: Yes Other/Comment: colon sx 2015 , C section x3, appendectomy - ANESTHESIA Hx Anesthesia: Yes Hx Anesthesia Reactions: No Hx Malignant Hyperthermia: No Meds Allergies/Adverse Reactions: Allergies Allergy/AdvReac Type Severity Reaction Status Date / Time shellfish derived Allergy RASH Verified 11/04/17 20:06 - Medications Medications: Current Medications Albuterol/Ipratropium (Duoneb 3 Mg/0.5 Mg (3 Ml) Ud) 3 ml IH Q4H PRN PRN Reason: Shortness of Breath Hydralazine HCl (Apresoline) 10 mg IVP Q6H PRN PRN Reason: Systolic Blood Pressure Insulin Human Lispro (Humalog Med) 0 units SC ACHS JAK PRN Reason: Protocol Physical Exam - Constitutional Appears: Non-toxic, No Acute Distress - Head Exam Head Exam: ATRAUMATIC, NORMAL INSPECTION, NORMOCEPHALIC - Eye Exam Eye Exam: EOMI, Normal appearance, PERRL - ENT Exam ENT Exam: Mucous Membranes Dry - Neck Exam Neck exam: Positive for: Full Rom. Negative for: Lymphadenopathy, Tenderness - Respiratory Exam Respiratory Exam: Rales, Rhonchi. absent: Accessory Muscle Use, Wheezes, Respiratory Distress - Cardiovascular Exam Cardiovascular Exam: RRR, +S1, +S2. absent: Bradycardia, Tachycardia, Gallop, Rubs, Systolic Murmur - GI/Abdominal Exam GI & Abdominal Exam: Normal Bowel Sounds, Soft. absent: Distended, Tenderness - Extremities Exam Extremities exam: Positive for: normal capillary refill, normal inspection, pedal pulses present. Negative for: calf tenderness, pedal edema - Back Exam Back exam: NORMAL INSPECTION - Neurological Exam Neurological exam: Alert, Oriented x3 - Psychiatric Exam Psychiatric exam: Normal Affect, Normal Mood - Skin Skin Exam: Dry, Intact, Normal Color, Warm Results - Vital Signs Recent Vital Signs: Last Vital Signs Temp 98.2 F 11/05/17 01:39 Pulse 84 06/04/18 01:39 Resp 20 11/05/17 01:39 BP 132/64 11/05/17 01:39 Pulse Ox 95 11/05/17 01:39 - Labs Result Diagrams: 11/04/17 19:55 11/04/17 19:55 Labs: Laboratory Results - last 24 hr 11/05/17 11/05/17 00:00 00:18 pO2 135 H VBG pH 7.33 VBG pCO2 35.0 L VBG HCO3 18.5 L VBG Total CO2 19.6 L VBG O2 Sat (Calc) 99.5 H VBG Base Excess -6.6 L VBG Potassium 4.2 Sodium 133.0 Chloride 101.0 Glucose 413 H* Lactate 5.7 H* FiO2 21.0 Venous Blood Potassium 4.2 Urine Color Yellow Urine Appearance Clear Urine pH 6.0 Ur Specific [place] 1.025 Urine Protein 100 H Urine Glucose (UA) 500 H Urine Ketones Negative Urine Blood Moderate H Urine Nitrate Negative Urine Bilirubin Negative Urine Urobilinogen 0.2 Ur Leukocyte Esterase Negative Urine RBC 1 - 3 Urine WBC 0 - 2 Ur Epithelial Cells 0 - 2 Assessment & Plan - Assessment and Plan (Free Text) Assessment: Patient is an 82 year old female with a past medical history of HTN, DM, CAD ( with 1 stent), GI AVM and past GI bleed, CKD, and COPD who presents with 2 day history of productive cough likely secondary to pneumonia Plan: Patient currently afebrile, hemodynamically stable, and protecting her airway - recommend to continue septic workup on telemetry. Please reconsult as needed. <Valeria RODRIGUEZ,Chauncey - Last Filed: 11/05/17 10:24> Meds - Medications Medications: Current Medications Albuterol/Ipratropium (Duoneb 3 Mg/0.5 Mg (3 Ml) Ud) 3 ml IH Q4H PRN PRN Reason: Shortness of Breath Last Admin: 11/05/17 01:53 Dose: 3 ml Hydralazine HCl (Apresoline) 10 mg IVP Q6H PRN PRN Reason: Systolic Blood Pressure Insulin Human Lispro (Humalog Med) 0 units SC ACHS JAK PRN Reason: Protocol Last Admin: 11/05/17 09:08 Dose: 3 units Results - Vital Signs Recent Vital Signs: Last Vital Signs Temp 99.9 F H 06/04/18 06:00 Pulse 72 11/05/17 06:00 Resp 21 11/05/17 06:00 BP 141/57 L 11/05/17 06:00 Pulse Ox 97 11/05/17 06:00 - Labs Result Diagrams: 11/05/17 05:20 11/05/17 05:20 Labs: Laboratory Results - last 24 hr 11/05/17 11/05/17 11/05/17 00:00 00:18 02:21 WBC RBC Hgb Hct MCV MCH MCHC RDW Plt Count MPV Gran % Lymph % (Auto) [place] % (Auto) Eos % (Auto) Baso % (Auto) Gran # Lymph # (Auto) [place] # (Auto) Eos # (Auto) Baso # (Auto) pO2 135 H VBG pH 7.33 VBG pCO2 35.0 L VBG HCO3 18.5 L VBG Total CO2 19.6 L VBG O2 Sat (Calc) 99.5 H VBG Base Excess -6.6 L VBG Potassium 4.2 Sodium 133.0 Chloride 101.0 Glucose 413 H* Lactate 5.7 H* FiO2 21.0 Potassium Carbon Dioxide Anion Gap BUN Creatinine Est GFR ( Amer) Est GFR (Non-Af Amer) POC Glucose (mg/dL) 267 H Random Glucose Calcium Phosphorus Magnesium Total Bilirubin AST ALT Alkaline Phosphatase Total Creatine Kinase Troponin I Total Protein Albumin Globulin Albumin/Globulin Ratio Venous Blood Potassium 4.2 Urine Color Yellow Urine Appearance Clear Urine pH 6.0 Ur Specific [place] 1.025 Urine Protein 100 H Urine Glucose (UA) 500 H Urine Ketones Negative Urine Blood Moderate H Urine Nitrate Negative Urine Bilirubin Negative Urine Urobilinogen 0.2 Ur Leukocyte Esterase Negative Urine RBC 1 - 3 Urine WBC 0 - 2 Ur Epithelial Cells 0 - 2 11/05/17 11/05/17 11/05/17 05:20 05:20 05:20 WBC 8.2 RBC 3.28 L Hgb 11.0 L Hct 31.7 L MCV 96.6 MCH 33.5 MCHC 34.7 RDW 13.4 Plt Count 92 L MPV 11.3 H Gran % 78.9 H Lymph % (Auto) 11.9 L [place] % (Auto) 9.1 H Eos % (Auto) 0.0 L Baso % (Auto) 0.1 Gran # 6.44 Lymph # (Auto) 1.0 L [place] # (Auto) 0.7 H Eos # (Auto) 0.0 Baso # (Auto) 0.01 pO2 289 H VBG pH 7.43 VBG pCO2 32.0 L VBG HCO3 21.2 VBG Total CO2 22.2 VBG O2 Sat (Calc) 100.3 H VBG Base Excess -2.3 L VBG Potassium 4.3 Sodium 133.0 139 Chloride 106.0 104 Glucose 349 H Lactate 3.8 H FiO2 21.0 Potassium 4.2 Carbon Dioxide 23 Anion Gap 16 BUN 28 H Creatinine 1.6 H Est GFR ( Amer) 37 Est GFR (Non-Af Amer) 31 POC Glucose (mg/dL) Random Glucose 310 H* Calcium 8.3 L Phosphorus 3.6 Magnesium 2.2 Total Bilirubin 0.6 AST 35 ALT 41 Alkaline Phosphatase 104 Total Creatine Kinase 40 Troponin I 0.03 Total Protein 6.2 Albumin 3.0 Globulin 3.2 Albumin/Globulin Ratio 1.0 L Venous Blood Potassium 4.3 Urine Color Urine Appearance Urine pH Ur Specific [place] Urine Protein Urine Glucose (UA) Urine Ketones Urine Blood Urine Nitrate Urine Bilirubin Urine Urobilinogen Ur Leukocyte Esterase Urine RBC Urine WBC Ur Epithelial Cells 11/05/17 11/05/17 06:30 07:31 WBC RBC Hgb Hct MCV MCH MCHC RDW Plt Count MPV Gran % Lymph % (Auto) [place] % (Auto) Eos % (Auto) Baso % (Auto) Gran # Lymph # (Auto) [place] # (Auto) Eos # (Auto) Baso # (Auto) pO2 VBG pH VBG pCO2 VBG HCO3 VBG Total CO2 VBG O2 Sat (Calc) VBG Base Excess VBG Potassium Sodium Chloride Glucose Lactate FiO2 Potassium Carbon Dioxide Anion Gap BUN Creatinine Est GFR ( Amer) Est GFR (Non-Af Amer) POC Glucose (mg/dL) 296 H 238 H Random Glucose Calcium Phosphorus Magnesium Total Bilirubin AST ALT Alkaline Phosphatase Total Creatine Kinase Troponin I Total Protein Albumin Globulin Albumin/Globulin Ratio Venous Blood Potassium Urine Color Urine Appearance Urine pH Ur Specific [place] Urine Protein Urine Glucose (UA) Urine Ketones Urine Blood Urine Nitrate Urine Bilirubin Urine Urobilinogen Ur Leukocyte Esterase Urine RBC Urine WBC Ur Epithelial Cells Attending/Attestation - Attestation I have personally seen and examined this patient.: Yes I have fully participated in the care of the patient.: Yes I have reviewed all pertinent clinical information: Yes Notes (Text): -I agree with the above ICU consult note completed by the resident physician with the following additions and/or changes: -The patient is an 82 year old woman with a history of HTN, IDDM, CAD (s/p PCI) , GI AVM and CKD, who presents with chest pain and productive cough. Her sepsis is due to community-acquired PNA and her chest pain must be ruled out for ACS. We recommend IVFs, empiric IV antibiotics, Duo-nebs, ASA and serial trops and EKGs. To assist ED physician, a few basic orders for septic work-up will be entered. However, because the patient is hemodynamically stable and in no acute distress, she doesnt require ICU level of care. If the patients condition deteriorates, please feel free to re-consult. Thank you.
[2017-11-05 05:58] LABS: BASO # 0.01 K/mm3 (0.0-2.0); BASO % 0.1 % (0.0-3.0); GRAN # 6.44 (1.4-6.5); GRAN % 78.9 % (50.0-68.0); LYMPH % 11.9 % (22.0-35.0); MEAN CELL VOLUME 96.6 fl (80.0-105.0); MEAN CORPUSCULAR HEMOGLOBIN 33.5 pg (25.0-35.0); MEAN CORPUSCULAR HGB CONC 34.7 g/dl (31.0-37.0); MEAN PLATELET VOLUME 11.3 fl (7.0-11.0); MONO # 0.7 (0.1-0.6); MONO % 9.1 % (1.0-6.0); RBC 3.28 10^6/uL (3.5-6.1); RED CELL DISTRIBUTION WIDTH 13.4 % (11.5-14.5); WHITE BLOOD COUNT 8.2 10^3/ul (4.5-11.0)
[2017-11-05 06:03] LABS: TROPONIN I 0.03 ng/mL
[2017-11-05 06:13] LABS: VENOUS BLOOD GAS BASE EXCESS -2.3 mmol/L (0.0-2.0); VENOUS BLOOD GAS PO2 289 mm/Hg (30-55); VENOUS BLOOD PH 7.43 (7.32-7.43)
[2017-11-05 07:25] LABS: CALCIUM 8.3 mg/dL (8.4-10.5)
[2017-11-05] MEDS ORDERED: Insulin Lispro 1 UNITS/0.01 ML ONE ×2 (09:07→14:40)
[2017-11-05] MEDS: Insulin Lispro (humaLOG) MEDIUM Coverage SC SCH ×4 (09:08→21:30)
--- NOTE | 2017-11-05 09:27 | RAD ---
HISTORY: Sepsis Patient COMPARISON: 01/24/2017 FINDINGS: LUNGS: There is a minimal infiltrate in the lingular segment of the left upper lobe PLEURA: No significant pleural effusion identified, no pneumothorax apparent. CARDIOVASCULAR: Normal. OSSEOUS STRUCTURES: No significant abnormalities. VISUALIZED UPPER ABDOMEN: Normal. OTHER FINDINGS: None. IMPRESSION: There is a minimal infiltrate in the lingular segment of the left upper lobe
[2017-11-05] MEDS ORDERED: Insulin Lispro (humaLOG) MIX 75/25(10 ml) SC SCH (12:45)
--- NOTE | 2017-11-05 13:03 | CARD ---
APPROVED REPORT EKG Measurement Heart [id number] DE 160P54 [id number] <Conclusion> Normal sinus rhythm with sinus arrhythmia Possible Left atrial enlargement IVCD Peaked T waves V 3,4
[2017-11-05] MEDS: guaiFENesin DM 200 mg-20 mg/10 ml UD PO PRN ×2 (13:25→22:58)
--- NOTE | 2017-11-05 14:03 | CT ---
PROCEDURE: CT Chest without contrast HISTORY: SOB COMPARISON: Portable chest 11/04/2017 TECHNIQUE: Contiguous axial images were obtained through the chest without intravenous contrast enhancement. Sagittal and coronal reconstructions were performed. Radiation dose (DLP): 288 mGy-cm. This CT exam was performed using one or more of the following dose reduction techniques: Automated exposure control, adjustment of the mA and/or kV according to patient size, and/or use of iterative reconstruction technique. FINDINGS: LUNGS: Dense multi focal areas of consolidation are seen in the left lower lobe and left upper lobe. Minimal patchy infiltrates are seen in the right upper lobe. Findings are consistent with multi focal pneumonia MEDIASTINUM: Unremarkable thoracic aorta. No aneurysm. Normal sized heart. Main pulmonary artery unremarkable. No vascular congestion. No lymphadenopathy. PLEURA: Small pleural effusions BONES: No fracture. No destructive lesion. UPPER ABDOMEN: Grossly unremarkable. OTHER FINDINGS: None. IMPRESSION: Dense multi focal areas of consolidation are seen in the left lower lobe and left upper lobe. Minimal patchy infiltrates are seen in the right upper lobe. Findings are consistent with multi focal pneumonia
[2017-11-05] MEDS: Pantoprazole 20 mg EC Tab PO SCH (14:45)
[2017-11-05] MEDS: Azithromycin 500MG/NS 250ml 500 MG/250 ML BAG IVPB SCH (14:46)
[2017-11-05] MEDS: Insulin Lispro 1 UNITS/0.01 ML SC SCH (14:59)
[2017-11-05] MEDS ORDERED: Pneumococcal 23-Valent Vaccine IM ONE (15:50)
[2017-11-05] MEDS: Levalbuterol 0.63 MG/3 ML Inhal Soln UD IH SCH (19:44)
--- NOTE | 2017-11-05 22:41 | HP ---
HISTORY OF PRESENT ILLNESS: The patient is an 82 years old, came to emergency room because of chest pain, cough, congestion, complain of chest pain especially more when she coughs, complain of shortness of breath, also felt feverish at home. Patient's who is by the bedside noted that she had fever of 100 yesterday. She does complain of generalized weakness, sore throat, cough and congestion, and vomited once. PAST MEDICAL HISTORY: Significant for; 1. Hypertension. 2. Insulin-dependent diabetes. 3. Coronary artery disease, status post angioplasty. 4. 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 She has partial colectomy. 6. COPD. 7. Chronic kidney disease. ALLERGIES: SHE IS ALLERGIC TO CIPRO. SOCIAL HISTORY: She lives with her . Denies smoking, drinking, or alcohol use. MEDICATIONS: At home, she is on Naprosyn, multivitamin, isosorbide 60 mg daily, ferrous sulfate, insulin, glipizide, Lasix, amlodipine, Protonix, and tramadol. REVIEW OF SYSTEMS: Significant for cough, congestion, and shortness of breath. PHYSICAL EXAMINATION: GENERAL: She is awake, alert, oriented, communicative. VITAL SIGNS: She has temperature of 99.9, pulse 72, respirations 20, blood pressure 141/57. LUNGS: Bilateral soft crackle. HEART: S1, S2 audible. ABDOMEN: Soft. nontender. No rebound. No guarding. NEUROLOGIC: She is awake, alert, oriented, communicative. LABORATORY DATA: WBC 8.2, hemoglobin 11, hematocrit 31.7, platelet of 92. PT 14.2, INR 1.24. Chemistry: Sodium 139, potassium 4.2, chloride 104, CO2 of 23, BUN 28, creatinine 1.6. Blood sugar of 296. Urine shows moderate blood. DIAGNOSTIC DATA: X-ray of chest shows minimal infiltrate in the lingular segment of the left upper lobe. ASSESSMENT: 1. Chest pain probably secondary to developing lingular infiltrate, left upper lobe. 2. Coronary artery disease. 3. Hypertension. 4. Hyperlipidemia. 5. Gastrointestinal bleed. 6. Status post angioplasty. PLAN: Patient will be admitted. We will start her on aspirin, IV antibiotics. We will monitor her insulin. Continue on isosorbide. Continue her on PPI. I will order for CT scan of the chest. Start her on antitussives. We will reevaluate patient in a.m. Harsh Morataya MD
--- NOTE | 2017-11-05 22:43 | CARD ---
APPROVED REPORT EKG Measurement Heart [id number] CT 156P47 [id number] <Conclusion> Normal sinus rhythm, APCs Possible Left atrial enlargement Nonspecific ST and T wave abnormality Abnormal ECG
[2017-11-06] MEDS ORDERED: Levalbuterol 0.63 MG/3 ML Inhal Soln UD IH STA (01:01)
--- NOTE | 2017-11-06 01:11 | CP.PCM.PN ---
Subjective - Date & Time of Evaluation Date of Evaluation: 11/06/17 Time of Evaluation: 01:02 - Subjective Subjective: S:Requests neb treatment for sob. Has no other complaints. Medical record was reviewed. Pulse ox 98% on 2L/min by nasal canula. O: Last Vital Signs 3 Temp 99.9 F H 11/05/17 23:17 Pulse 97 H 11/05/17 23:17 Resp 20 11/05/17 23:17 BP 150/56 L 11/05/17 23:17 Pulse Ox 98 11/05/17 23:17 Awake, alert, not in distress. LUNGS:Normal breathing pattern. Wheezing + A:Dyspnea. COPD. P: Xopenex neb treatment 0.63 stat. Objective - Vital Signs/Intake and Output Vital Signs (last 24 hours): Temp Pulse Resp BP Pulse Ox 99.9 F H 97 H 20 150/56 L 98 11/05/17 23:17 11/05/17 23:17 11/05/17 23:17 11/05/17 23:17 11/05/17 23:17 Intake and Output: 11/05/17 11/06/17 18:59 06:59 Intake Total 250 Balance 250 - Medications Medications: Current Medications Acetaminophen (Tylenol 325mg Tab) 650 mg PO Q6H PRN PRN Reason: Fever >100.4 F Last Admin: 11/05/17 13:24 Dose: 650 mg Amlodipine Besylate (Norvasc) 10 mg PO DAILY [facility] Last Admin: 11/05/17 14:45 Dose: 10 mg Aspirin (Aspirin Chewable) 81 mg PO DAILY JAK Last Admin: 11/05/17 14:44 Dose: 81 mg Guaifenesin/Dextromethorphan (Robitussin Dm) 10 ml PO Q6H PRN PRN Reason: Cough Last Admin: 11/05/17 22:58 Dose: 10 ml Hydralazine HCl (Apresoline) 10 mg IVP Q6H PRN PRN Reason: Systolic Blood Pressure Ceftriaxone Sodium (Rocephin 1 Gram Ivpb) 1 gm in 100 mls @ 100 mls/hr IVPB DAILY JAK PRN Reason: Protocol Azithromycin (Zithromax 500mg In Ns) 500 mg in 250 mls @ 167 mls/hr IVPB DAILY JAK PRN Reason: Protocol Last Admin: 11/05/17 14:46 Dose: 167 mls/hr Insulin Human Lispro (Humalog Med) 0 units SC ACHS [facility] PRN Reason: Protocol Last Admin: 11/05/17 21:30 Dose: Not Given Insulin Human Lispro (Humalog) 12 units SC ACL [facility] Last Admin: 11/05/17 14:59 Dose: Not Given Insulin Lispro Protam/Lispro Human (Humalog Mix 75/25) 20 units SC ACB [facility] Insulin Lispro Protam/Lispro Human (Humalog Mix 75/25) 20 units SC .BEFOREDINNER [facility] Isosorbide Mononitrate (Imdur) 60 mg PO DAILY [facility] Last Admin: 11/05/17 14:44 Dose: 60 mg Levalbuterol HCl (Xopenex) 0.63 mg IH TIDRESP [facility] Last Admin: 11/05/17 19:44 Dose: 0.63 mg Levalbuterol HCl (Xopenex) 0.63 mg IH ONCE STA Stop: 11/06/17 01:02 Pantoprazole Sodium (Protonix Ec Tab) 20 mg PO DAILY [facility] Last Admin: 11/05/17 14:45 Dose: 20 mg - Labs Labs: 11/05/17 05:20 11/05/17 05:20 PT 14.2 SECONDS (9.4-12.5) H 11/04/17 19:55 INR 1.24 (0.93-1.08) H 11/04/17 19:55 APTT 32.3 Seconds (25.1-36.5) 11/04/17 19:55
[2017-11-06] MEDS: guaiFENesin DM 200 mg-20 mg/10 ml UD PO PRN ×2 (04:54→22:45)
[2017-11-06] MEDS: Levalbuterol 0.63 MG/3 ML Inhal Soln UD IH SCH ×4 (05:49→20:40)
[2017-11-06] MEDS: Insulin Lispro (humaLOG) MEDIUM Coverage SC SCH ×4 (08:07→21:35)
[2017-11-06] MEDS: Insulin Lispro (humaLOG) MIX 75/25(10 ml) SC SCH (08:27)
[2017-11-06] MEDS: Azithromycin 500MG/NS 250ml 500 MG/250 ML BAG IVPB SCH (09:05)
[2017-11-06] MEDS: Pantoprazole 20 mg EC Tab PO SCH (09:12)
[2017-11-06] MEDS ORDERED: cefTRIAXone 1 gm 1 GM/100 ML BAG IVPB SCH (10:00)
[2017-11-06] MEDS: Insulin Lispro 1 UNITS/0.01 ML SC SCH (12:37)
--- NOTE | 2017-11-06 12:52 | CP.PCM.CON ---
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 She had subjective fever and chills but denies headache or dizziness, no nausea or vomiting, no abdominal pain, no dysuria or hematuria, no rhinorrhea, no sore throat and did not have URI-like illness prior to these symptoms. CXR and CT chest are showing multifocal pneumonia. The patient had Ciprofloxacin in the last month for UTI. She denies animal contacts, denies travel outside of [place] in the past 3 months. Infectious Diseases consult is requested to further evaluate and manage. Review of Systems - Review of Systems All systems: reviewed and no additional remarkable complaints except (as per HPI ) Past Patient History - Infectious Disease Hx of Infectious Diseases: None - Tetanus Immunizations Tetanus Immunization: Unknown - Past Social History Smoking Status: Never Smoked - CARDIAC Hx Cardiac Disorders: Yes Hx Cardia Arrhythmia: Yes Hx Congestive Heart Failure: Yes Hx Hypertension: Yes - PULMONARY Hx Respiratory Disorders: No - NEUROLOGICAL Hx Neurological Disorder: No - HEENT Hx HEENT Problems: No - RENAL Hx Chronic Kidney Disease: No - ENDOCRINE/METABOLIC Hx Endocrine Disorders: Yes Hx Diabetes Mellitus Type 2: Yes - HEMATOLOGICAL/ONCOLOGICAL Hx Blood Disorders: Yes Hx Hepatitis B: Yes (patient not aware) Hx Shingles: Yes - INTEGUMENTARY Hx Dermatological Problems: No Other/Comment: Hx of R foot infection patient not sure of what kind of infection - MUSCULOSKELETAL/RHEUMATOLOGICAL Hx Musculoskeletal Disorders: Yes Hx Arthritis: Yes (right leg) Hx Falls: No - GASTROINTESTINAL Hx Gastrointestinal Disorders: Yes (gi bleed) - GENITOURINARY/GYNECOLOGICAL Hx Genitourinary Disorders: No - PSYCHIATRIC Hx Psychophysiologic Disorder: Yes Hx Anxiety: No (denied) Hx Substance Use: No - SURGICAL HISTORY Hx Amputation: No Hx Appendectomy: Yes Hx Cardiac Catheterization: Yes Hx Coronary Stent: Yes Other/Comment: colon sx 2015 , C section x3, appendectomy - ANESTHESIA Hx Anesthesia: Yes Hx Anesthesia Reactions: No Hx Malignant Hyperthermia: No Meds Allergies/Adverse Reactions: Allergies Allergy/AdvReac Type Severity Reaction Status Date / Time shellfish derived Allergy RASH Verified 11/04/17 20:06 - Medications Medications: Current Medications Acetaminophen (Tylenol 325mg Tab) 650 mg PO Q6H PRN PRN Reason: Fever >100.4 F Last Admin: 11/05/17 13:24 Dose: 650 mg Amlodipine Besylate (Norvasc) 10 mg PO DAILY [facility] Last Admin: 11/05/17 14:45 Dose: 10 mg Aspirin (Aspirin Chewable) 81 mg PO DAILY [facility] Last Admin: 11/05/17 14:44 Dose: 81 mg Guaifenesin/Dextromethorphan (Robitussin Dm) 10 ml PO Q6H PRN PRN Reason: Cough Last Admin: 11/05/17 13:25 Dose: 10 ml Hydralazine HCl (Apresoline) 10 mg IVP Q6H PRN PRN Reason: Systolic Blood Pressure Ceftriaxone Sodium (Rocephin 1 Gram Ivpb) 1 gm in 100 mls @ 100 mls/hr IVPB DAILY [facility] PRN Reason: Protocol Azithromycin (Zithromax 500mg In Ns) 500 mg in 250 mls @ 167 mls/hr IVPB DAILY [facility] PRN Reason: Protocol Last Admin: 11/05/17 14:46 Dose: 167 mls/hr Insulin Human Lispro (Humalog Med) 0 units SC ACHS [facility] PRN Reason: Protocol Last Admin: 11/05/17 21:30 Dose: Not Given Insulin Human Lispro (Humalog) 12 units SC ACL [facility] Last Admin: 11/05/17 14:59 Dose: Not Given Insulin Lispro Protam/Lispro Human (Humalog Mix 75/25) 20 units SC ACB [facility] Insulin Lispro Protam/Lispro Human (Humalog Mix 75/25) 20 units SC .BEFOREDINNER [facility] Isosorbide Mononitrate (Imdur) 60 mg PO DAILY [facility] Last Admin: 11/05/17 14:44 Dose: 60 mg Levalbuterol HCl (Xopenex) 0.63 mg IH TIDRESP [facility] Last Admin: 11/05/17 19:44 Dose: 0.63 mg Pantoprazole Sodium (Protonix Ec Tab) 20 mg PO DAILY [facility] Last Admin: 11/05/17 14:45 Dose: 20 mg Physical Exam - Constitutional Appears: Non-toxic, Chronically Ill - Head Exam Head Exam: NORMAL INSPECTION - ENT Exam ENT Exam: Mucous Membranes Moist - Neck Exam Neck exam: Negative for: Meningismus - Respiratory Exam Respiratory Exam: Decreased Breath Sounds - Cardiovascular Exam Cardiovascular Exam: +S1, +S2 - GI/Abdominal Exam GI & Abdominal Exam: Soft. absent: Tenderness Results - Vital Signs Recent Vital Signs: Last Vital Signs Temp 99 F 11/05/17 18:00 Pulse 76 11/05/17 22:00 Resp 18 11/05/17 18:00 BP 101/58 L 11/05/17 18:00 Pulse Ox 97 11/05/17 17:01 - Labs Result Diagrams: 11/05/17 05:20 11/05/17 05:20 Labs: Laboratory Results - last 24 hr 11/05/17 11/05/17 11/05/17 00:00 00:18 02:20 WBC RBC Hgb Hct MCV MCH MCHC RDW Plt Count MPV Gran % Lymph % (Auto) [place] % (Auto) Eos % (Auto) Baso % (Auto) Gran # Lymph # (Auto) [place] # (Auto) Eos # (Auto) Baso # (Auto) pO2 135 H VBG pH 7.33 VBG pCO2 35.0 L VBG HCO3 18.5 L VBG Total CO2 19.6 L VBG O2 Sat (Calc) 99.5 H VBG Base Excess -6.6 L VBG Potassium 4.2 Sodium 133.0 Chloride 101.0 Glucose 413 H* Lactate 5.7 H* FiO2 21.0 Potassium Carbon Dioxide Anion Gap BUN Creatinine Est GFR ( Amer) Est GFR (Non-Af Amer) POC Glucose (mg/dL) Random Glucose Calcium Phosphorus Magnesium Total Bilirubin AST ALT Alkaline Phosphatase Total Creatine Kinase Troponin I Total Protein Albumin Globulin Albumin/Globulin Ratio Procalcitonin 0.93 H Venous Blood Potassium 4.2 Urine Color Yellow Urine Appearance Clear Urine pH 6.0 Ur Specific [place] 1.025 Urine Protein 100 H Urine Glucose (UA) 500 H Urine Ketones Negative Urine Blood Moderate H Urine Nitrate Negative Urine Bilirubin Negative Urine Urobilinogen 0.2 Ur Leukocyte Esterase Negative Urine RBC 1 - 3 Urine WBC 0 - 2 Ur Epithelial Cells 0 - 2 11/05/17 11/05/17 11/05/17 02:21 05:20 05:20 WBC 8.2 RBC 3.28 L Hgb 11.0 L Hct 31.7 L MCV 96.6 MCH 33.5 MCHC 34.7 RDW 13.4 Plt Count 92 L MPV 11.3 H Gran % 78.9 H Lymph % (Auto) 11.9 L [place]undy % (Auto) 9.1 H Eos % (Auto) 0.0 L Baso % (Auto) 0.1 Gran # 6.44 Lymph # (Auto) 1.0 L [place]undy # (Auto) 0.7 H Eos # (Auto) 0.0 Baso # (Auto) 0.01 pO2 289 H VBG pH 7.43 VBG pCO2 32.0 L VBG HCO3 21.2 VBG Total CO2 22.2 VBG O2 Sat (Calc) 100.3 H VBG Base Excess -2.3 L VBG Potassium 4.3 Sodium 133.0 Chloride 106.0 Glucose 349 H Lactate 3.8 H FiO2 21.0 Potassium Carbon Dioxide Anion Gap BUN Creatinine Est GFR ( Amer) Est GFR (Non-Af Amer) POC Glucose (mg/dL) 267 H Random Glucose Calcium Phosphorus Magnesium Total Bilirubin AST ALT Alkaline Phosphatase Total Creatine Kinase Troponin I Total Protein Albumin Globulin Albumin/Globulin Ratio Procalcitonin Venous Blood Potassium 4.3 Urine Color Urine Appearance Urine pH Ur Specific [place] Urine Protein Urine Glucose (UA) Urine Ketones Urine Blood Urine Nitrate Urine Bilirubin Urine Urobilinogen Ur Leukocyte Esterase Urine RBC Urine WBC Ur Epithelial Cells 11/05/17 11/05/17 11/05/17 05:20 06:30 07:31 WBC RBC Hgb Hct MCV MCH MCHC RDW Plt Count MPV Gran % Lymph % (Auto) [place] % (Auto) Eos % (Auto) Baso % (Auto) Gran # Lymph # (Auto) [place] # (Auto) Eos # (Auto) Baso # (Auto) pO2 VBG pH VBG pCO2 VBG HCO3 VBG Total CO2 VBG O2 Sat (Calc) VBG Base Excess VBG Potassium Sodium 139 Chloride 104 Glucose Lactate FiO2 Potassium 4.2 Carbon Dioxide 23 Anion Gap 16 BUN 28 H Creatinine 1.6 H Est GFR ( Amer) 37 Est GFR (Non-Af Amer) 31 POC Glucose (mg/dL) 296 H 238 H Random Glucose 310 H* Calcium 8.3 L Phosphorus 3.6 Magnesium 2.2 Total Bilirubin 0.6 AST 35 ALT 41 Alkaline Phosphatase 104 Total Creatine Kinase 40 Troponin I 0.03 Total Protein 6.2 Albumin 3.0 Globulin 3.2 Albumin/Globulin Ratio 1.0 L Procalcitonin Venous Blood Potassium Urine Color Urine Appearance Urine pH Ur Specific [place] Urine Protein Urine Glucose (UA) Urine Ketones Urine Blood Urine Nitrate Urine Bilirubin Urine Urobilinogen Ur Leukocyte Esterase Urine RBC Urine WBC Ur Epithelial Cells 11/05/17 11/05/17 11/05/17 11:40 16:47 21:22 WBC RBC Hgb Hct MCV MCH MCHC RDW Plt Count MPV Gran % Lymph % (Auto) [place] % (Auto) Eos % (Auto) Baso % (Auto) Gran # Lymph # (Auto) [place] # (Auto) Eos # (Auto) Baso # (Auto) pO2 VBG pH VBG pCO2 VBG HCO3 VBG Total CO2 VBG O2 Sat (Calc) VBG Base Excess VBG Potassium Sodium Chloride Glucose Lactate FiO2 Potassium Carbon Dioxide Anion Gap BUN Creatinine Est GFR ( Amer) Est GFR (Non-Af Amer) POC Glucose (mg/dL) 236 H 183 H 199 H Random Glucose Calcium Phosphorus Magnesium Total Bilirubin AST ALT Alkaline Phosphatase Total Creatine Kinase Troponin I Total Protein Albumin Globulin Albumin/Globulin Ratio Procalcitonin Venous Blood Potassium Urine Color Urine Appearance Urine pH Ur Specific [place] Urine Protein Urine Glucose (UA) Urine Ketones Urine Blood Urine Nitrate Urine Bilirubin Urine Urobilinogen Ur Leukocyte Esterase Urine RBC Urine WBC Ur Epithelial Cells Assessment & Plan - Assessment and Plan (Free Text) Plan: Assessment multifocal HCAP HTN DM CAD S/P PCI 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
--- NOTE | 2017-11-06 13:07 | PN ---
DATE: 11/06/2017 SUBJECTIVE: The patient is 82 years old, seen and examined, sitting in chair. She states she feels a lot better than yesterday. She is still coughing. Mild shortness of breath. Fever is almost gone. Ate . PHYSICAL EXAMINATION: VITAL SIGNS: She has temperature of 99.4, pulse 76, respirations 20, blood pressure 149/52. LUNGS: Bilateral fair airflow. Occasional expiratory rhonchi. HEART: S1 and S2 audible. ABDOMEN: Soft. Nontender. No rebound. No guarding. NEUROLOGIC: She is awake, alert, oriented, communicative. LABORATORY EXAM: Chemistry: Blood sugar is 270. Blood culture, urine cultures are negative. Had CT scan of the chest done that shows multilobar pneumonia including left lower lobe and left upper lobe, minimal patchy infiltrates are also seen in the right upper lobe. ASSESSMENT: 1. Multilobar pneumonia. 2. Coronary artery disease. 3. Hypertension. 4. Hyperlipidemia. 5. Insulin-dependent diabetes. 6. History of arteriovenous malformation. 7. Gastrointestinal bleed. 8. Status post partial colectomy. PLAN: We will continue the patient on nebulizer treatment. Monitor blood sugar. I spoke to Dr. Hutchison. We will discontinue Rocephin and start her on Maxipime. Continue Zithromax. Request for physical therapy evaluation. Harsh Morataya MD
[2017-11-06] MEDS: Cefepime IV 2 gm in NS 2 GM/100 ML BAG IVPB SCH ×2 (14:52→20:59)
--- NOTE | 2017-11-06 15:33 | CON ---
DATE: 11/06/2017 CARDIOLOGY CONSULTATION HISTORY: The patient is an 82-year-old woman who presents with bronchitis with cough of yellowish sputum. Because of her ongoing cough, she experiences some pleuritic chest discomfort. Her chest pain only occurs because of the cough. PAST MEDICAL HISTORY: Notable for recurrent GI bleed secondary to AV malformation of the colon. She also is status post PTCA and stent in the past. Suffers from hypertension and hypercholesterolemia. She complains of mild dyspnea. SOCIAL HISTORY: The patient does not smoke. REVIEW OF SYSTEMS: A 14-point review of systems was reviewed in detail. No additional cardiac symptoms are noted. PHYSICAL EXAMINATION: VITAL SIGNS: Blood pressure 149/52, heart rate in the 70s. NECK: Negative JVD. LUNGS: Bilateral rhonchi with basilar rales. HEART: Reveals S1, S2. EXTREMITIES: Without edema. EKG is unremarkable with peak T-waves. LABORATORY DATA: Potassium is 4.2. BUN and creatinine 28 and 1.6. Troponin is negative x1. ProBNP is elevated to 2800. The hemoglobin is 11. IMPRESSION: 1. Bronchitis. 2. Pleuritic chest pain due to the efforts of coughing. 3. Mild congestive heart failure. 4. Anemia. 5. Stable angina. 6. Coronary artery disease. 7. No evidence for acute coronary syndrome. 8. History of recurrent gastrointestinal bleed secondary to arteriovenous malformation Given these findings, we will give the patient one dose of IV Lasix. We will obtain an echocardiogram to evaluate her LV function. Geovanni Moses MD
[2017-11-07] MEDS: Levalbuterol 0.63 MG/3 ML Inhal Soln UD IH SCH ×3 (08:09→13:47)
[2017-11-07] MEDS: Insulin Lispro (humaLOG) MEDIUM Coverage SC SCH ×4 (08:29→21:23)
[2017-11-07] MEDS: Insulin Lispro (humaLOG) MIX 75/25(10 ml) SC SCH (08:29)
[2017-11-07] MEDS: Azithromycin 500MG/NS 250ml 500 MG/250 ML BAG IVPB SCH (10:24)
[2017-11-07] MEDS: Cefepime IV 2 gm in NS 2 GM/100 ML BAG IVPB SCH (10:25)
[2017-11-07] MEDS: Pantoprazole 20 mg EC Tab PO SCH (10:25)
[2017-11-07] MEDS ORDERED: Vancomycin 1.5 GM in Sodium Chloride 0.9% 500 ML IVPB ONE (11:14)
[2017-11-07] MEDS: Insulin Lispro 1 UNITS/0.01 ML SC SCH (11:30)
[2017-11-07] MEDS: MethylPREDNISolone 40 mg Vial IV SCH ×2 (13:44→21:24)
[2017-11-07] MEDS: guaiFENesin DM 200 mg-20 mg/10 ml UD PO PRN (14:16)
[2017-11-07] MEDS ORDERED: Vancomycin 2 GM in Sodium Chloride 0.9% 500 ML IVPB ONE (15:26)
[2017-11-07] MEDS: Meropenem IV 1 gm in NS 50 ML IVPB SCH ×2 (15:30→21:23)
--- NOTE | 2017-11-07 15:32 | CP.PCM.PN ---
Subjective - Date & Time of Evaluation Date of Evaluation: 11/07/17 Time of Evaluation: 11:20 - Subjective Subjective: Patient still with cough and SOB. No fevers. Objective - Vital Signs/Intake and Output Vital Signs (last 24 hours): Temp Pulse Resp BP Pulse Ox 100.8 F H 88 19 135/80 96 11/07/17 10:25 11/07/17 10:00 11/07/17 06:00 11/07/17 10:25 11/07/17 06:00 Intake and Output: 11/07/17 11/07/17 06:59 18:59 Intake Total 300 Output Total 0 Balance 300 - Medications Medications: Current Medications Acetaminophen (Tylenol 325mg Tab) 650 mg PO Q6H PRN PRN Reason: Fever >100.4 F Last Admin: 11/07/17 10:25 Dose: 650 mg Amlodipine Besylate (Norvasc) 10 mg PO DAILY [facility] Last Admin: 11/07/17 10:25 Dose: 10 mg Aspirin (Aspirin Chewable) 81 mg PO DAILY [facility] Last Admin: 11/07/17 10:25 Dose: 81 mg Glipizide (Glucotrol) 10 mg PO 0730,1630 [facility] Last Admin: 11/07/17 08:29 Dose: 10 mg Guaifenesin/Dextromethorphan (Robitussin Dm) 10 ml PO Q6H PRN PRN Reason: Cough Last Admin: 11/06/17 22:45 Dose: 10 ml Hydralazine HCl (Apresoline) 10 mg IVP Q6H PRN PRN Reason: Systolic Blood Pressure Azithromycin (Zithromax 500mg In Ns) 500 mg in 250 mls @ 167 mls/hr IVPB DAILY [facility] PRN Reason: Protocol Last Admin: 11/07/17 10:24 Dose: 167 mls/hr Cefepime HCl (Maxipime 2gm) 2 gm in 100 mls @ 100 mls/hr IVPB Q12 [facility] PRN Reason: Protocol Stop: 11/11/17 13:01 Last Admin: 11/07/17 10:25 Dose: 100 mls/hr Insulin Human Lispro (Humalog Med) 0 units SC ACHS [facility] PRN Reason: Protocol Last Admin: 11/07/17 08:29 Dose: 3 units Insulin Human Lispro (Humalog) 12 units SC ACL [facility] Last Admin: 11/06/17 12:37 Dose: 12 units Insulin Lispro Protam/Lispro Human (Humalog Mix 75/25) 20 units SC ACB [facility] Last Admin: 11/07/17 08:29 Dose: 20 units Insulin Lispro Protam/Lispro Human (Humalog Mix 75/25) 20 units SC .BEFOREDINNER [facility] Isosorbide Mononitrate (Imdur) 60 mg PO DAILY [facility] Last Admin: 11/07/17 10:25 Dose: 60 mg Levalbuterol HCl (Xopenex) 0.63 mg IH TIDRESP [facility] Last Admin: 11/07/17 08:09 Dose: 0.63 mg Pantoprazole Sodium (Protonix Ec Tab) 20 mg PO DAILY [facility] Last Admin: 11/07/17 10:25 Dose: 20 mg - Labs Labs: 11/05/17 05:20 11/05/17 05:20 PT 14.2 SECONDS (9.4-12.5) H 11/04/17 19:55 INR 1.24 (0.93-1.08) H 11/04/17 19:55 APTT 32.3 Seconds (25.1-36.5) 11/04/17 19:55 - Constitutional Appears: Chronically Ill - Head Exam Head Exam: NORMAL INSPECTION - ENT Exam ENT Exam: Mucous Membranes Moist - Neck Exam Neck Exam: absent: Meningismus - Respiratory Exam Respiratory Exam: Decreased Breath Sounds - Cardiovascular Exam Cardiovascular Exam: +S1, +S2 - GI/Abdominal Exam GI & Abdominal Exam: Soft. 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
--- NOTE | 2017-11-07 16:00 | PN ---
DATE: 11/07/2017 SUBJECTIVE: The patient is 82 years old, seen and examined, has cough, congestion, wheezing and states I do not feel good. PHYSICAL EXAMINATION: VITAL SIGNS: She has a temperature of 100.8, pulse 88, respirations 20, blood pressure 135/80. LUNGS: Bilateral expiratory rhonchi. HEART: S1, S2 audible. ABDOMEN: Soft, nontender. No rebound. No guarding. NEUROLOGICAL: She is awake, alert, oriented, communicative. LABORATORY EXAMINATION: Blood sugar is 255. Blood cultures and urine cultures are negative. ASSESSMENT: 1. Multilobar pneumonia. 2. Bronchospasm. 3. Asthmatic bronchitis. 4. Hypertension. 5. Coronary artery disease. 6. History of gastrointestinal bleed. 7. Gastritis. 8. Thrombocytopenia. 9. Cardiac cirrhosis. PLAN: I will continue the patient on current antibiotics. She is on Maxipime and Zithromax. I will give extra dose of Xopenex and give a morning dose of 20 to 25 unit and start her on small dose of steroids. The patient has poor elevated affects and we will follow up with patient in a.m. Harsh Morataya MD DT: 11/07/2017 15:06:16
--- NOTE | 2017-11-07 16:34 | PN ---
DATE: 11/07/2017 CARDIOLOGY FOLLOWUP SUBJECTIVE: The patient continues to cough with pleuritic-like chest pain. PHYSICAL EXAMINATION: VITAL SIGNS: Blood pressure is 128/55, heart rate in the 70s, temperature this morning was 100.8. NECK: Negative JVD. LUNGS: Rhonchi noted. HEART: Reveals S1, S2. EXTREMITIES: Without edema. LABORATORY DATA: Hemoglobin is 11, white count is down to 8.2. Troponins are negative x2. ASSESSMENT: 1. Stable angina. 2. No evidence for acute coronary syndrome. 3. History of arteriovenous malformations in the colon. 4. Anemia. 5. Bronchitis. PLAN: Given these findings, the patient is on IV antibiotics. We will discontinue telemetry today. Geovanni Moses MD
[2017-11-08] MEDS: guaiFENesin DM 200 mg-20 mg/10 ml UD PO PRN ×3 (05:53→21:09)
[2017-11-08 06:52] LABS: BASO # 0.01 K/mm3 (0.0-2.0); BASO % 0.2 % (0.0-3.0); GRAN # 3.5 (1.4-6.5); GRAN % 80.5 % (50.0-68.0); HEMOGLOBIN 11.1 g/dL (12.0-16.0); LYMPH # 0.7 (1.2-3.4); LYMPH % 15.2 % (22.0-35.0); MEAN CELL VOLUME 94.4 fl (80.0-105.0); MEAN CORPUSCULAR HEMOGLOBIN 32.8 pg (25.0-35.0); MEAN CORPUSCULAR HGB CONC 34.8 g/dl (31.0-37.0); MEAN PLATELET VOLUME 11.1 fl (7.0-11.0); MONO # 0.2 (0.1-0.6); MONO % 4.1 % (1.0-6.0); RBC 3.38 10^6/uL (3.5-6.1); RED CELL DISTRIBUTION WIDTH 12.7 % (11.5-14.5); WHITE BLOOD COUNT 4.4 10^3/ul (4.5-11.0)
[2017-11-08 07:10] LABS: ALB/GLOB RATIO 0.9 (1.1-1.8); ALBUMIN 3.2 g/dL (3.0-4.8); CALCIUM 8.3 mg/dL (8.4-10.5)
[2017-11-08] MEDS: Levalbuterol 0.63 MG/3 ML Inhal Soln UD IH SCH ×4 (07:37→23:49)
[2017-11-08] MEDS: Insulin Lispro (humaLOG) MIX 75/25(10 ml) SC SCH (08:28)
[2017-11-08] MEDS: Insulin Lispro (humaLOG) MEDIUM Coverage SC SCH ×4 (08:28→21:10)
[2017-11-08] MEDS: Meropenem IV 1 gm in NS 50 ML IVPB SCH ×2 (10:00→21:09)
[2017-11-08] MEDS: MethylPREDNISolone 40 mg Vial IV SCH ×2 (10:01→21:10)
[2017-11-08] MEDS: Pantoprazole 20 mg EC Tab PO SCH (10:02)
[2017-11-08] MEDS: Insulin Lispro 1 UNITS/0.01 ML SC SCH (12:14)
[2017-11-08] MEDS: Azithromycin 500MG/NS 250ml 500 MG/250 ML BAG IVPB SCH (12:16)
--- NOTE | 2017-11-08 13:52 | PN ---
DATE: 11/08/2017 SUBJECTIVE: The patient is 82 years old, seen and examined, sitting in chair, seems to be comfortable. Less shortness of breath. Still coughing. Complained of headache. Ate fair. PHYSICAL EXAMINATION: VITAL SIGNS: She is afebrile, pulse 68, respirations 20, blood pressure 128/75. LUNGS: Bilateral fair airflow. Bilateral few soft crackle, more pronounced posteriorly in the middle and the lower lung region. HEART: S1 and S2 audible. Regular rate and rhythm. ABDOMEN: Soft. Nontender. No rebound. No guarding. NEUROLOGIC: The patient is awake and alert, able to communicate. LABORATORY EXAM: WBC is 4.4, hemoglobin 11, hematocrit 31.1, platelet of 100. Chemistry: Sodium 133, potassium 4.8, chloride 100, CO2 of 23, BUN 34, creatinine 1.5, blood sugar of 21. Blood culture, urine cultures are negative. ASSESSMENT: 1. Multilobar pneumonia. 2. Coronary artery disease, status post multiple angioplasty. 3. History of peptic ulcer disease with history of arteriovenous malformations. 4. Hyperlipidemia. 5. Insulin-dependent diabetes. PLAN: I will continue the patient on nebulizer treatment. She is on IV steroid. We will monitor her blood sugar. I will add Levemir 10 units at bedtime. We will continue current medication and nebulizer treatment. We will follow up the patient in the a.m. Harsh Morataya MD
--- NOTE | 2017-11-08 16:21 | CP.PCM.PN ---
Subjective - Date & Time of Evaluation Date of Evaluation: 11/08/17 Time of Evaluation: 10:45 - Subjective Subjective: Breathing better, cough is better, no nausea, no fevers. Objective - Vital Signs/Intake and Output Vital Signs (last 24 hours): Temp Pulse Resp BP Pulse Ox 97.3 F L 80 20 128/75 100 11/08/17 14:00 11/08/17 14:00 11/08/17 14:00 11/08/17 10:02 11/08/17 14:00 Intake and Output: 11/08/17 11/08/17 06:59 18:59 Intake Total 1490 Balance 1490 - Medications Medications: Current Medications Acetaminophen (Tylenol 325mg Tab) 650 mg PO Q6H PRN PRN Reason: Fever >100.4 F Last Admin: 11/07/17 10:25 Dose: 650 mg Amlodipine Besylate (Norvasc) 10 mg PO DAILY [facility] Last Admin: 11/08/17 10:02 Dose: 10 mg Aspirin (Aspirin Chewable) 81 mg PO DAILY [facility] Last Admin: 11/08/17 10:03 Dose: 81 mg Glipizide (Glucotrol) 10 mg PO 0730,1630 [facility] Last Admin: 11/08/17 08:30 Dose: Not Given Guaifenesin/Dextromethorphan (Robitussin Dm) 10 ml PO Q6H PRN PRN Reason: Cough Last Admin: 11/08/17 13:37 Dose: 10 ml Hydralazine HCl (Apresoline) 10 mg IVP Q6H PRN PRN Reason: Systolic Blood Pressure Azithromycin (Zithromax 500mg In Ns) 500 mg in 250 mls @ 167 mls/hr IVPB DAILY [facility] PRN Reason: Protocol Last Admin: 11/08/17 12:16 Dose: 167 mls/hr Meropenem (Merrem Iv 1 Gm Premix) 50 mls @ 100 mls/hr IVPB Q12 [facility] PRN Reason: Protocol Last Admin: 11/08/17 10:00 Dose: 100 mls/hr Insulin Detemir (Levemir) 10 unit SC HS [facility] Insulin Human Lispro (Humalog Med) 0 units SC ACHS [facility] PRN Reason: Protocol Last Admin: 11/08/17 12:13 Dose: 5 units Insulin Human Lispro (Humalog) 12 units SC ACL [facility] Last Admin: 11/08/17 12:14 Dose: 12 units Insulin Lispro Protam/Lispro Human (Humalog Mix 75/25) 20 units SC .BEFOREDINNER [facility] Insulin Lispro Protam/Lispro Human (Humalog Mix 75/25) 25 units SC ACB [facility] Last Admin: 11/08/17 08:28 Dose: 25 units Isosorbide Mononitrate (Imdur) 60 mg PO DAILY [facility] Last Admin: 11/08/17 10:03 Dose: 60 mg Levalbuterol HCl (Xopenex) 0.63 mg IH TIDRESP [facility] Last Admin: 11/08/17 14:19 Dose: 0.63 mg Methylprednisolone (Solu-Medrol) 30 mg IV Q12 [facility] Last Admin: 11/08/17 10:01 Dose: 30 mg Pantoprazole Sodium (Protonix Ec Tab) 20 mg PO DAILY [facility] Last Admin: 11/08/17 10:02 Dose: 20 mg - Labs Labs: 11/08/17 06:20 11/08/17 06:20 PT 14.2 SECONDS (9.4-12.5) H 11/04/17 19:55 INR 1.24 (0.93-1.08) H 11/04/17 19:55 APTT 32.3 Seconds (25.1-36.5) 11/04/17 19:55 - Constitutional Appears: Non-toxic, Chronically Ill - Head Exam Head Exam: NORMAL INSPECTION - Respiratory Exam Respiratory Exam: Decreased Breath Sounds - Cardiovascular Exam Cardiovascular Exam: +S1, +S2 - GI/Abdominal Exam GI & Abdominal Exam: Soft. 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
--- NOTE | 2017-11-08 20:55 | PN ---
DATE: 11/08/2017 CARDIOLOGY FOLLOWUP SUBJECTIVE: The patient still complains of cough. PHYSICAL EXAMINATION: VITAL SIGNS: Blood pressure is 128/75, the heart rate is in the 60s. NECK: Negative JVD. LUNGS: Without rales. HEART: Reveals S1 and S2. EXTREMITIES: Without edema. LABORATORY DATA: Hemoglobin is stable at 11.1. BUN and creatinine are 34 and 1.5. Glucose is 292. IMPRESSION: 1. Stable angina. 2. Anemia, which is stable. 3. History of gastrointestinal bleed secondary to arteriovenous malformations in the colon. 4. Recurrent cough. 5. Bronchitis. IMPRESSION: Given these findings, the patient's cardiac status is stable. No further cardiac intervention is necessary. Geovanni Moses MD
[2017-11-08] MEDS: Insulin Detemir 100 units/ml Vial (Levemir) SC SCH (21:10)
[2017-11-09] MEDS ORDERED: Insulin Lispro 1 UNITS/0.01 ML SC ONE (01:44)
[2017-11-09] MEDS: guaiFENesin DM 200 mg-20 mg/10 ml UD PO PRN (02:51)
[2017-11-09] MEDS: Levalbuterol 0.63 MG/3 ML Inhal Soln UD IH SCH ×5 (07:26→20:41)
[2017-11-09] MEDS: Insulin Lispro (humaLOG) MEDIUM Coverage SC SCH ×4 (08:15→22:02)
[2017-11-09] MEDS: Insulin Lispro (humaLOG) MIX 75/25(10 ml) SC SCH (09:26)
[2017-11-09] MEDS: MethylPREDNISolone 40 mg Vial IV SCH ×2 (10:05→22:15)
[2017-11-09] MEDS: Pantoprazole 20 mg EC Tab PO SCH (10:56)
[2017-11-09] MEDS: Meropenem IV 1 gm in NS 50 ML IVPB SCH ×2 (10:57→21:58)
[2017-11-09] MEDS: Azithromycin 500MG/NS 250ml 500 MG/250 ML BAG IVPB SCH (11:43)
--- NOTE | 2017-11-09 14:20 | CP.PCM.PN ---
Subjective - Date & Time of Evaluation Date of Evaluation: 11/09/17 Time of Evaluation: 12:05 - Subjective Subjective: Patient complaining of dyspnea at rest, still with cough, has chest pain. No fevers. Objective - Vital Signs/Intake and Output Vital Signs (last 24 hours): Temp Pulse Resp BP Pulse Ox 97.5 F L 92 H 20 153/67 H 96 11/09/17 06:00 11/09/17 06:00 11/09/17 06:00 11/09/17 10:56 11/09/17 06:00 Intake and Output: 11/09/17 11/09/17 06:59 18:59 Intake Total 1080 Balance 1080 - Medications Medications: Current Medications Acetaminophen (Tylenol 325mg Tab) 650 mg PO Q6H PRN PRN Reason: Fever >100.4 F Last Admin: 11/07/17 10:25 Dose: 650 mg Amlodipine Besylate (Norvasc) 10 mg PO DAILY [facility] Last Admin: 11/09/17 10:56 Dose: 10 mg Aspirin (Aspirin Chewable) 81 mg PO DAILY [facility] Last Admin: 11/09/17 10:57 Dose: 81 mg Glipizide (Glucotrol) 10 mg PO 0730,1630 [facility] Last Admin: 11/09/17 08:26 Dose: 10 mg Guaifenesin/Dextromethorphan (Robitussin Dm) 10 ml PO Q6H PRN PRN Reason: Cough Last Admin: 11/09/17 02:51 Dose: 10 ml Hydralazine HCl (Apresoline) 10 mg IVP Q6H PRN PRN Reason: Systolic Blood Pressure Azithromycin (Zithromax 500mg In Ns) 500 mg in 250 mls @ 167 mls/hr IVPB DAILY [facility] PRN Reason: Protocol Last Admin: 11/09/17 11:43 Dose: 167 mls/hr Meropenem (Merrem Iv 1 Gm Premix) 50 mls @ 100 mls/hr IVPB Q12 [facility] PRN Reason: Protocol Last Admin: 11/09/17 10:57 Dose: 100 mls/hr Insulin Detemir (Levemir) 10 unit SC HS [facility] Last Admin: 11/08/17 21:10 Dose: 10 unit Insulin Human Lispro (Humalog Med) 0 units SC ACHS [facility] PRN Reason: Protocol Last Admin: 11/09/17 08:15 Dose: 5 units Insulin Human Lispro (Humalog) 12 units SC ACL [facility] Last Admin: 11/08/17 12:14 Dose: 12 units Insulin Lispro Protam/Lispro Human (Humalog Mix 75/25) 20 units SC .BEFOREDINNER [facility] Insulin Lispro Protam/Lispro Human (Humalog Mix 75/25) 25 units SC ACB [facility] Last Admin: 11/09/17 09:26 Dose: 25 units Isosorbide Mononitrate (Imdur) 60 mg PO DAILY [facility] Last Admin: 11/09/17 10:56 Dose: 60 mg Levalbuterol HCl (Xopenex) 0.63 mg IH TIDRESP [facility] Last Admin: 11/09/17 10:49 Dose: 0.63 mg Methylprednisolone (Solu-Medrol) 30 mg IV Q12 [facility] Last Admin: 11/08/17 21:10 Dose: 30 mg Pantoprazole Sodium (Protonix Ec Tab) 20 mg PO DAILY [facility] Last Admin: 11/09/17 10:56 Dose: 20 mg - Labs Labs: 11/08/17 06:20 11/08/17 06:20 PT 14.2 SECONDS (9.4-12.5) H 11/04/17 19:55 INR 1.24 (0.93-1.08) H 11/04/17 19:55 APTT 32.3 Seconds (25.1-36.5) 11/04/17 19:55 - Constitutional Appears: Chronically Ill - Head Exam Head Exam: NORMAL INSPECTION - ENT Exam ENT Exam: Mucous Membranes Moist - Neck Exam Neck Exam: absent: Meningismus - Respiratory Exam Respiratory Exam: Decreased Breath Sounds - Cardiovascular Exam Cardiovascular Exam: +S1, +S2 - GI/Abdominal Exam GI & Abdominal Exam: Soft. 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
[2017-11-09] MEDS: Insulin Lispro 1 UNITS/0.01 ML SC SCH (14:49)
[2017-11-09] MEDS: Insulin Detemir 100 units/ml Vial (Levemir) SC SCH (21:57)
--- NOTE | 2017-11-09 23:30 | PN ---
DATE: 11/09/2017 SUBJECTIVE: Patient is 82 years old, seen and examined, complains of shortness of breath, wheezing. Denies any chest pain. Does complain of headache, back pain, and she states she could not sleep last night. PHYSICAL EXAMINATION: VITAL SIGNS: She is afebrile, pulse 67, respirations 18, blood pressure 153/67. LUNGS: Bilateral fair airflow. Few expiratory rhonchi in the left upper lung region. HEART: S1 and S2 audible. ABDOMEN: Soft. Nontender. No rebound. No guarding. NEUROLOGIC: She is awake, alert, oriented, communicative. LABORATORY DATA: Blood sugar is 238. Blood cultures and urine cultures are negative. ASSESSMENT: 1. Multilobar pneumonia. 2. Hypertension. 3. Chronic obstructive pulmonary disease. 4. Cardiac cirrhosis. 5. Coronary artery disease, status post angioplasty. 6. Insulin-dependent diabetes. PLAN: We will continue patient on current antibiotics and IV steroid. Patient is on meropenem and Zithromax. We will follow up this patient. Harsh Morataya MD
[2017-11-10] MEDS: Levalbuterol 0.63 MG/3 ML Inhal Soln UD IH SCH ×3 (07:19→20:36)
[2017-11-10] MEDS: Insulin Lispro (humaLOG) MEDIUM Coverage SC SCH ×4 (08:31→21:23)
[2017-11-10] MEDS: Pantoprazole 20 mg EC Tab PO SCH (09:32)
[2017-11-10] MEDS: Azithromycin 500MG/NS 250ml 500 MG/250 ML BAG IVPB SCH (09:33)
[2017-11-10] MEDS: Meropenem IV 1 gm in NS 50 ML IVPB SCH ×2 (09:33→21:43)
[2017-11-10] MEDS: Insulin Lispro (humaLOG) MIX 75/25(10 ml) SC SCH (09:34)
[2017-11-10] MEDS: MethylPREDNISolone 40 mg Vial IV SCH ×2 (09:34→21:42)
[2017-11-10] MEDS: Insulin Lispro 1 UNITS/0.01 ML SC SCH (11:57)
[2017-11-10] MEDS: guaiFENesin DM 200 mg-20 mg/10 ml UD PO PRN (14:39)
[2017-11-10] MEDS ORDERED: MethylPREDNISolone 40 mg Vial IVP STA (15:08)
--- NOTE | 2017-11-10 15:20 | CP.PCM.PN ---
Subjective - Date & Time of Evaluation Date of Evaluation: 11/10/17 Time of Evaluation: 13:30 - Subjective Subjective: No fevers, still with occasional bouts of dyspnea at rest. Objective - Vital Signs/Intake and Output Vital Signs (last 24 hours): Temp Pulse Resp BP Pulse Ox 97.4 F L 58 L 20 180/79 H 98 11/10/17 06:00 11/10/17 06:00 11/10/17 06:00 11/10/17 09:32 11/09/17 23:05 Intake and Output: 11/10/17 11/10/17 06:59 18:59 Intake Total 540 Balance 540 - Medications Medications: Current Medications Acetaminophen (Tylenol 325mg Tab) 650 mg PO Q6H PRN PRN Reason: Fever >100.4 F Last Admin: 11/07/17 10:25 Dose: 650 mg Acetaminophen (Tylenol 325mg Tab) 650 mg PO Q6H PRN PRN Reason: Pain, Mild (1-3) Last Admin: 11/09/17 20:12 Dose: 650 mg Amlodipine Besylate (Norvasc) 10 mg PO DAILY [facility] Last Admin: 11/10/17 09:32 Dose: 10 mg Aspirin (Aspirin Chewable) 81 mg PO DAILY [facility] Last Admin: 11/10/17 09:35 Dose: 81 mg Glipizide (Glucotrol) 10 mg PO 0730,1630 [facility] Last Admin: 11/10/17 09:35 Dose: 10 mg Guaifenesin/Dextromethorphan (Robitussin Dm) 10 ml PO Q6H PRN PRN Reason: Cough Last Admin: 11/09/17 02:51 Dose: 10 ml Hydralazine HCl (Apresoline) 10 mg IVP Q6H PRN PRN Reason: Systolic Blood Pressure Azithromycin (Zithromax 500mg In Ns) 500 mg in 250 mls @ 167 mls/hr IVPB DAILY [facility] PRN Reason: Protocol Last Admin: 11/10/17 09:33 Dose: 167 mls/hr Meropenem (Merrem Iv 1 Gm Premix) 50 mls @ 100 mls/hr IVPB Q12 [facility] PRN Reason: Protocol Last Admin: 11/10/17 09:33 Dose: 100 mls/hr Insulin Detemir (Levemir) 10 unit SC HS [facility] Last Admin: 11/09/17 21:57 Dose: 10 unit Insulin Human Lispro (Humalog Med) 0 units SC ACHS [facility] PRN Reason: Protocol Last Admin: 11/10/17 11:56 Dose: 5 units Insulin Human Lispro (Humalog) 12 units SC ACL [facility] Last Admin: 11/10/17 11:57 Dose: 12 units Insulin Lispro Protam/Lispro Human (Humalog Mix 75/25) 20 units SC .BEFOREDINNER [facility] Insulin Lispro Protam/Lispro Human (Humalog Mix 75/25) 25 units SC ACB [facility] Last Admin: 11/10/17 09:34 Dose: 25 units Isosorbide Mononitrate (Imdur) 60 mg PO DAILY [facility] Last Admin: 11/10/17 09:35 Dose: 60 mg Levalbuterol HCl (Xopenex) 0.63 mg IH TIDRESP [facility] Last Admin: 11/10/17 13:11 Dose: 0.63 mg Methylprednisolone (Solu-Medrol) 30 mg IV Q12 [facility] Last Admin: 11/10/17 09:34 Dose: 30 mg Pantoprazole Sodium (Protonix Ec Tab) 20 mg PO DAILY [facility] Last Admin: 11/10/17 09:32 Dose: 20 mg - Labs Labs: 11/08/17 06:20 11/08/17 06:20 PT 14.2 SECONDS (9.4-12.5) H 11/04/17 19:55 INR 1.24 (0.93-1.08) H 11/04/17 19:55 APTT 32.3 Seconds (25.1-36.5) 11/04/17 19:55 - Constitutional Appears: Chronically Ill - Head Exam Head Exam: NORMAL INSPECTION - Respiratory Exam Respiratory Exam: Decreased Breath Sounds - Cardiovascular Exam Cardiovascular Exam: +S1, +S2 - GI/Abdominal Exam GI & Abdominal Exam: Soft. 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
[2017-11-10] MEDS: Albuterol-Ipratrop 3 mg / 0.5 (3 ml) UD IH PRN (15:50)
[2017-11-10] MEDS: Insulin Detemir 100 units/ml Vial (Levemir) SC SCH (21:23)
--- NOTE | 2017-11-10 21:28 | PN ---
DATE: 11/10/2017 SUBJECTIVE: Patient is an 82 years old, seen and examined, complained of cough, congestion, shortness of breath. She states because of shortness of breath, she could not breath and because of shortness of breath, she could not sleep. So, the patient was given stat dose of Solu-Medrol 40 mg. She was given stat dose of Lasix 40 mg and nebulizer treatment with some significant relief. PHYSICAL EXAMINATION: GENERAL: She is awake and alert, short of breath. VITAL SIGNS: She is afebrile, pulse 50, respirations 20, blood pressure 140/56. LUNGS: Bilateral fair airflow. Bilateral dense expiratory rhonchi. HEART: S1 and S2 audible. ABDOMEN: Soft, nontender. No rebound. No guarding. NEUROLOGICAL: She is awake and alert, able to communicate, but short of breath. LABORATORY DATA: Chemistry: Blood sugar is 188. ASSESSMENT: 1. Community-acquired multilobar pneumonia. 2. Asthmatic bronchitis. 3. Component of [id number] congestive heart failure. 4. Coronary artery disease. 5. Chronic anemia. 6. Insulin-dependent diabetes. PLAN: We will continue the patient on nebulizer treatment. We will start her on Levemir 25 units at bedtime. We will monitor her blood sugar and monitor her closely. Spoke to her . Patient is DNR, does not want to be intubated. Harsh Morataya MD
[2017-11-11] MEDS: guaiFENesin DM 200 mg-20 mg/10 ml UD PO PRN ×3 (00:40→23:21)
[2017-11-11] MEDS: Levalbuterol 0.63 MG/3 ML Inhal Soln UD IH SCH ×4 (02:46→19:08)
[2017-11-11] MEDS: Albuterol-Ipratrop 3 mg / 0.5 (3 ml) UD IH PRN ×2 (05:18→15:51)
[2017-11-11 08:40] LABS: GRAN % 91.2 % (50.0-68.0); HEMOGLOBIN 10.1 g/dL (12.0-16.0); LYMPH # 0.8 (1.2-3.4); LYMPH % 4.4 % (22.0-35.0); MEAN CELL VOLUME 89.8 fl (80.0-105.0); MEAN CORPUSCULAR HEMOGLOBIN 33.2 pg (25.0-35.0); MEAN PLATELET VOLUME 10.9 fl (7.0-11.0); MONO # 0.8 (0.1-0.6); MONO % 4.4 % (1.0-6.0); PLATELET COUNT 167 10^3/uL (120.0-450.0); RBC 3.04 10^6/uL (3.5-6.1); RED CELL DISTRIBUTION WIDTH 12.6 % (11.5-14.5); WHITE BLOOD COUNT 17.4 10^3/ul (4.5-11.0)
[2017-11-11 09:02] LABS: ALB/GLOB RATIO 1.1 (1.1-1.8); ALBUMIN 3.3 g/dL (3.0-4.8); CALCIUM 7.9 mg/dL (8.4-10.5)
[2017-11-11 09:18] LABS: BAND 1 % (0-2); LYMPHOCYTE 6 % (22.0-35.0); MONOCYTE 2 % (1.0-6.0); NEUTROPHIL 91 % (50.0-70.0)
[2017-11-11 09:19] LABS: LARGE PLATELETS PRESENT; PLATELET ESTIMATE NORMAL (NORMAL)
[2017-11-11] MEDS: Pantoprazole 20 mg EC Tab PO SCH (10:11)
[2017-11-11] MEDS: Azithromycin 500MG/NS 250ml 500 MG/250 ML BAG IVPB SCH (10:12)
[2017-11-11] MEDS: Insulin Lispro (humaLOG) MEDIUM Coverage SC SCH ×3 (10:12→16:52)
[2017-11-11] MEDS: Meropenem IV 1 gm in NS 50 ML IVPB SCH (10:12)
[2017-11-11] MEDS: MethylPREDNISolone 40 mg Vial IV SCH ×2 (10:13→23:03)
[2017-11-11 11:00] LABS: ALB/GLOB RATIO 1.1 (1.1-1.8); ALBUMIN 3.2 g/dL (3.0-4.8); CALCIUM 7.8 mg/dL (8.4-10.5)
[2017-11-11] MEDS: Insulin Lispro (humaLOG) MIX 75/25(10 ml) SC SCH (11:56)
--- NOTE | 2017-11-11 13:42 | CP.PCM.PN ---
Subjective - Date & Time of Evaluation Date of Evaluation: 11/11/17 Time of Evaluation: 12:00 - Subjective Subjective: Patient still having intermittent shortness of breath at rest, no fevers. Objective - Vital Signs/Intake and Output Vital Signs (last 24 hours): Temp Pulse Resp BP Pulse Ox 98.2 F 65 22 171/63 H 98 11/11/17 06:00 11/11/17 06:00 11/11/17 06:00 11/11/17 06:00 11/09/17 23:05 Intake and Output: 11/11/17 11/11/17 06:59 18:59 Intake Total 540 Balance 540 - Medications Medications: Current Medications Acetaminophen (Tylenol 325mg Tab) 650 mg PO Q6H PRN PRN Reason: Fever >100.4 F Last Admin: 11/07/17 10:25 Dose: 650 mg Acetaminophen (Tylenol 325mg Tab) 650 mg PO Q6H PRN PRN Reason: Pain, Mild (1-3) Last Admin: 11/09/17 20:12 Dose: 650 mg Albuterol/Ipratropium (Duoneb 3 Mg/0.5 Mg (3 Ml) Ud) 3 ml IH Q2H PRN PRN Reason: Shortness of Breath Last Admin: 11/11/17 05:18 Dose: 3 ml Amlodipine Besylate (Norvasc) 10 mg PO DAILY [facility] Last Admin: 11/10/17 09:32 Dose: 10 mg Aspirin (Aspirin Chewable) 81 mg PO DAILY [facility] Last Admin: 11/10/17 09:35 Dose: 81 mg Glipizide (Glucotrol) 10 mg PO 0730,1630 [facility] Last Admin: 11/10/17 17:29 Dose: 10 mg Guaifenesin/Dextromethorphan (Robitussin Dm) 10 ml PO Q6H PRN PRN Reason: Cough Last Admin: 11/11/17 00:40 Dose: 10 ml Hydralazine HCl (Apresoline) 10 mg IVP Q6H PRN PRN Reason: Systolic Blood Pressure Azithromycin (Zithromax 500mg In Ns) 500 mg in 250 mls @ 167 mls/hr IVPB DAILY [facility] PRN Reason: Protocol Last Admin: 11/10/17 09:33 Dose: 167 mls/hr Meropenem (Merrem Iv 1 Gm Premix) 50 mls @ 100 mls/hr IVPB Q12 [facility] PRN Reason: Protocol Last Admin: 11/10/17 21:43 Dose: 100 mls/hr Insulin Detemir (Levemir) 25 unit SC HS [facility] Last Admin: 11/10/17 21:23 Dose: Not Given Insulin Human Lispro (Humalog Med) 0 units SC ACHS [facility] PRN Reason: Protocol Last Admin: 11/10/17 21:23 Dose: Not Given Insulin Lispro Protam/Lispro Human (Humalog Mix 75/25) 20 units SC .BEFOREDINNER [facility] Insulin Lispro Protam/Lispro Human (Humalog Mix 75/25) 25 units SC ACB [facility] Last Admin: 11/10/17 09:34 Dose: 25 units Isosorbide Mononitrate (Imdur) 60 mg PO DAILY [facility] Last Admin: 11/10/17 09:35 Dose: 60 mg Levalbuterol HCl (Xopenex) 0.63 mg IH TIDRESP [facility] Last Admin: 11/11/17 07:18 Dose: 0.63 mg Methylprednisolone (Solu-Medrol) 30 mg IV Q12 [facility] Last Admin: 11/10/17 21:42 Dose: 30 mg Ondansetron HCl (Zofran Inj) 4 mg IVP Q6H PRN PRN Reason: Nausea/Vomiting Last Admin: 11/10/17 20:52 Dose: 4 mg Pantoprazole Sodium (Protonix Ec Tab) 20 mg PO DAILY [facility] Last Admin: 11/10/17 09:32 Dose: 20 mg - Labs Labs: 11/08/17 06:20 11/08/17 06:20 PT 14.2 SECONDS (9.4-12.5) H 11/04/17 19:55 INR 1.24 (0.93-1.08) H 11/04/17 19:55 APTT 32.3 Seconds (25.1-36.5) 11/04/17 19:55 - Constitutional Appears: Chronically Ill - Neck Exam Neck Exam: absent: Meningismus - Respiratory Exam Respiratory Exam: Decreased Breath Sounds - Cardiovascular Exam Cardiovascular Exam: +S1, +S2 - GI/Abdominal Exam GI & Abdominal Exam: Soft. 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
[2017-11-11] MEDS ORDERED: Sod Polystyrene Sulf 15 gm/60 ml Susp PO ONE (14:19)
--- NOTE | 2017-11-11 14:55 | PN ---
DATE: 11/11/2017 SUBJECTIVE: The patient states she is still having difficulty breathing. No history of chest pain. No shortness of breath. The patient is complaining of feeling nauseous. Complained of having shortness of breath and cough. PHYSICAL EXAMINATION: VITAL SIGNS: She is afebrile, pulse 65, respirations 22, blood pressure 171/63. LUNGS: Bilateral occasional expiratory rhonchi. HEART: S1 and S2 audible. ABDOMEN: Soft. Nontender. No rebound. No guarding. NEUROLOGICAL: The patient is awake and alert, able to communicate. EXTREMITIES: Bilateral legs, no edema. LABORATORY EXAM: Sodium 140, potassium 5.8, chloride 86, CO2 of 14, BUN 69, creatinine 2.4, blood sugar of 273. ASSESSMENT: 1. Multilobar pneumonia. 2. New hyponatremia. 3. Uncontrolled hypertension. 4. Hyperkalemia. 5. Acute on chronic renal failure. 6. Coronary artery disease, status post angioplasty. 7. History of cardiac cirrhosis. PLAN: The patient will be transferred to telemetry. We will start her on hypertonic saline. Request Dr. Rodriguez to evaluate the patient. Continue nebulizer treatment. Continue current antibiotic. We will follow up the patient in the a.m. Harsh Morataya MD
[2017-11-11] MEDS: Sodium Chloride 3% 500 ML IV SCH (15:58)
[2017-11-11] MEDS: Meropenem 500 MG in Sodium Chloride 0.9% 50 ML IVPB SCH (23:02)
[2017-11-11] MEDS: Insulin Detemir 100 units/ml Vial (Levemir) SC SCH (23:21)
[2017-11-12] MEDS: Albuterol-Ipratrop 3 mg / 0.5 (3 ml) UD IH PRN ×2 (00:28→09:35)
[2017-11-12] MEDS: Insulin Lispro (humaLOG) MEDIUM Coverage SC SCH ×5 (00:45→22:00)
[2017-11-12] MEDS: guaiFENesin DM 200 mg-20 mg/10 ml UD PO PRN ×3 (05:08→22:39)
[2017-11-12] MEDS: Levalbuterol 0.63 MG/3 ML Inhal Soln UD IH SCH ×3 (08:13→19:00)
--- NOTE | 2017-11-12 08:18 | PN ---
DATE: 11/12/2017 SUBJECTIVE: The patient still complaining of a cough. OBJECTIVE: VITAL SIGNS: Blood pressure is 148/70, heart rate is in the 90s. NECK: Negative JVD. LUNGS: Decreased breath sounds bilaterally. HEART: Reveal S1, S2. EXTREMITIES: Without edema. DATA: Sodium is 114 with a BUN and creatinine of 69 and 2.4, glucose is 268. IMPRESSION: 1. Marked metabolic abnormalities. 2. Hyponatremia. 3. Diabetes mellitus. 4. Hypertension. 5. Coronary artery disease. 6. History of gastrointestinal bleed. The patient is being treated with intravenous antibiotics. May need to consider hypertonic saline. Geovanni oMses MD
[2017-11-12] MEDS: Insulin Lispro (humaLOG) MIX 75/25(10 ml) SC SCH (09:20)
[2017-11-12] MEDS: Pantoprazole 20 mg EC Tab PO SCH (09:30)
[2017-11-12] MEDS: MethylPREDNISolone 40 mg Vial IV SCH ×2 (09:31→22:35)
[2017-11-12] MEDS: Meropenem 500 MG in Sodium Chloride 0.9% 50 ML IVPB SCH ×2 (09:31→22:39)
[2017-11-12 11:47] LABS: HEMOGLOBIN 10.3 g/dL (12.0-16.0); MEAN CORPUSCULAR HEMOGLOBIN 33.1 pg (25.0-35.0); MEAN CORPUSCULAR HGB CONC 36.8 g/dl (31.0-37.0); MEAN PLATELET VOLUME 10.1 fl (7.0-11.0); RBC 3.11 10^6/uL (3.5-6.1); RED CELL DISTRIBUTION WIDTH 12.6 % (11.5-14.5); WHITE BLOOD COUNT 14.4 10^3/ul (4.5-11.0)
[2017-11-12 13:05] LABS: ALB/GLOB RATIO 1.2 (1.1-1.8); ALBUMIN 3.4 g/dL (3.0-4.8); CALCIUM 7.9 mg/dL (8.4-10.5)
--- NOTE | 2017-11-12 13:25 | CARD ---
APPROVED REPORT EXAM: Two-dimensional and M-mode echocardiogram with Doppler and color Doppler. INDICATION Congestive Heart Failure 2D DIMENSIONS Left Atrium (2D)4.2 (1.6-4.0cm)IVSd1.1 (0.7-1.1cm) LVDd4.0 (3.9-5.9cm)PWd1.1 (0.7-1.1cm) LVDs2.4 (2.5-4.0cm)FS (%) 39.5 % LVEF (%)70.6 (>50%) M-Mode DIMENSIONS Aortic Root2.00 (2.2-3.7cm)Aortic Cusp Exc.1.50 (1.5-2.0cm) Aortic Valve AoV Peak Iqidyhzt697.0cm/Deven Peak GR.11mmHg Mitral Valve MV E Smthhtpi075.0cm/sMV A Izedxxvi31.9cm/sE/A ratio1.6 TDI E/Lateral E'0.0E/Medial E'0.0 Tricuspid Valve TR Peak [id number] [id number] Peak Gr.47mmHg [id number] LEFT VENTRICLE The left ventricular function is normal. The left ventricular ejection fraction is within the normal range. RIGHT VENTRICLE The right ventricle is normal size. ATRIA The left atrium is mildly dilated. The right atrium size is normal. AORTIC VALVE The aortic valve is thickened but opens well. There is mild aortic regurgitation. MITRAL VALVE The mitral valve is calcified but opens well. Mitral annular calcification is moderate. Mitral regurgitation is mild to moderate. TRICUSPID VALVE The tricuspid valve leaflets are thickened , but open well. There is mild tricuspid regurgitation. There is moderate pulmonary hypertension. PULMONIC VALVE The pulmonic valve is not well visualized. PERICARDIAL EFFUSION There is no pericardial effusion. <Conclusion> Good LV function Dilated LA Mild AI Mild to moderate MR Mild TR Moderate pulmonary hypertension
--- NOTE | 2017-11-12 13:29 | CP.PCM.PN ---
Subjective - Date & Time of Evaluation Date of Evaluation: 11/12/17 Time of Evaluation: 10:20 - Subjective Subjective: Patient still having intermittent shortness of breath at rest, still with cough with whitish phlegm. No fevers. Objective - Vital Signs/Intake and Output Vital Signs (last 24 hours): Temp Pulse Resp BP Pulse Ox 98 F 100 H 20 152/65 H 98 11/12/17 06:00 11/12/17 06:00 11/12/17 06:00 11/12/17 09:32 11/12/17 06:00 Intake and Output: 11/12/17 11/12/17 06:59 18:59 Intake Total 740 Output Total 7 Balance 733 - Medications Medications: Current Medications Acetaminophen (Tylenol 325mg Tab) 650 mg PO Q6H PRN PRN Reason: Fever >100.4 F Last Admin: 11/07/17 10:25 Dose: 650 mg Acetaminophen (Tylenol 325mg Tab) 650 mg PO Q6H PRN PRN Reason: Pain, Mild (1-3) Last Admin: 11/09/17 20:12 Dose: 650 mg Albuterol/Ipratropium (Duoneb 3 Mg/0.5 Mg (3 Ml) Ud) 3 ml IH Q2H PRN PRN Reason: Shortness of Breath Last Admin: 11/12/17 09:35 Dose: 3 ml Amlodipine Besylate (Norvasc) 10 mg PO DAILY [facility] Last Admin: 11/12/17 09:32 Dose: 10 mg Aspirin (Aspirin Chewable) 81 mg PO DAILY [facility] Last Admin: 11/12/17 09:31 Dose: 81 mg Glipizide (Glucotrol) 10 mg PO 0730,1630 [facility] Last Admin: 11/12/17 09:33 Dose: 10 mg Guaifenesin/Dextromethorphan (Robitussin Dm) 10 ml PO Q6H PRN PRN Reason: Cough Last Admin: 11/12/17 05:08 Dose: 10 ml Hydralazine HCl (Apresoline) 10 mg IVP Q6H PRN PRN Reason: Systolic Blood Pressure Meropenem 500 mg/ Sodium (Chloride) 50 mls @ 100 mls/hr IVPB Q12 [facility] PRN Reason: Protocol Stop: 11/14/17 22:01 Last Admin: 11/12/17 09:31 Dose: 100 mls/hr Sodium Chloride (Hypertonic Saline 3%) 500 mls @ 20 mls/hr IV .Q24H [facility] Last Admin: 11/11/17 15:58 Dose: 20 mls/hr Insulin Detemir (Levemir) 25 unit SC HS [facility] Last Admin: 11/11/17 23:21 Dose: 25 units Insulin Human Lispro (Humalog Med) 0 units SC ACHS [facility] PRN Reason: Protocol Last Admin: 11/12/17 09:20 Dose: Not Given Insulin Lispro Protam/Lispro Human (Humalog Mix 75/25) 20 units SC .BEFOREDINNER [facility] Insulin Lispro Protam/Lispro Human (Humalog Mix 75/25) 25 units SC ACB [facility] Last Admin: 11/12/17 09:20 Dose: Not Given Isosorbide Mononitrate (Imdur) 60 mg PO DAILY [facility] Last Admin: 11/12/17 09:30 Dose: 60 mg Levalbuterol HCl (Xopenex) 0.63 mg IH TIDRESP [facility] Last Admin: 11/12/17 08:13 Dose: 0.63 mg Methylprednisolone (Solu-Medrol) 30 mg IV Q12 [facility] Last Admin: 11/12/17 09:31 Dose: 30 mg Ondansetron HCl (Zofran Inj) 4 mg IVP Q6H PRN PRN Reason: Nausea/Vomiting Last Admin: 11/12/17 09:44 Dose: 4 mg Pantoprazole Sodium (Protonix Ec Tab) 20 mg PO DAILY [facility] Last Admin: 11/12/17 09:30 Dose: 20 mg - Labs Labs: 11/11/17 06:20 11/11/17 10:30 PT 14.2 SECONDS (9.4-12.5) H 11/04/17 19:55 INR 1.24 (0.93-1.08) H 11/04/17 19:55 APTT 32.3 Seconds (25.1-36.5) 11/04/17 19:55 - Constitutional Appears: Chronically Ill - Head Exam Head Exam: NORMAL INSPECTION - ENT Exam ENT Exam: Mucous Membranes Moist - Neck Exam Neck Exam: absent: Lymphadenopathy, Meningismus - Respiratory Exam Respiratory Exam: Decreased Breath Sounds - Cardiovascular Exam Cardiovascular Exam: +S1, +S2 - GI/Abdominal Exam GI & Abdominal Exam: Soft. 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
--- NOTE | 2017-11-12 13:29 | PN ---
DATE: 11/12/2017 SUBJECTIVE: The patient is an 82-year-old, seen and examined, seemed to be short of breath. States she could not sleep last night. Has poor appetite. As per nurse, did not eat that well. I am going to hold her oral hypoglycemic. PHYSICAL EXAMINATION: VITAL SIGNS: She is afebrile. Pulse 100, respirations 20, blood pressure 152/65. LUNGS: Bilateral rhonchi plus soft crackle at bases. HEART: S1, S2 audible. Tachycardic. ABDOMEN: Soft, nontender. No rebound, no guarding. NEUROLOGICAL: She is awake, alert, oriented, able to communicate. EXTREMITIES: Bilateral legs, no edema. LABORATORY DATA: Her blood sugar is 97. CBC shows WBC of 14.4, hemoglobin 10.3, hematocrit 28, platelets 165. Blood cultures and urine cultures are negative. ASSESSMENT: 1. Chronic obstructive pulmonary disease exacerbation. 2. Multilobar pneumonia. 3. Element of congestive heart failure. 4. Hyponatremia. 5. History of cardiac cirrhosis. 6. Hypertension. 7. Insulin-dependent diabetes. 8. Poor oral intake. PLAN: We are going to continue the patient on hypertonic saline, she is receiving 20 mL per hour and I will discontinue oral hypoglycemic. I will put her on sliding scale, give her stat dose of Lasix 20 mg, continue her on aspirin and nebulizer treatment, and monitor her electrolytes. Continue her IV steroid also. We will follow up this patient in a.m. Harsh Morataya MD
--- NOTE | 2017-11-12 15:02 | RAD ---
HISTORY: rule out congestion COMPARISON: 11/04/2017 FINDINGS: LUNGS: Mild vascular congestion PLEURA: No significant pleural effusion identified, no pneumothorax apparent. CARDIOVASCULAR: Normal. OSSEOUS STRUCTURES: No significant abnormalities. VISUALIZED UPPER ABDOMEN: Normal. OTHER FINDINGS: None. IMPRESSION: Mild vascular congestion
[2017-11-12] MEDS: Sodium Chloride 3% 500 ML IV SCH (17:00)
[2017-11-12] MEDS: Insulin Detemir 100 units/ml Vial (Levemir) SC SCH (22:37)
[2017-11-12] MEDS: TraMADol/Apap 37.5/325 mg Tab PO PRN (22:38)
[2017-11-13] MEDS: Albuterol-Ipratrop 3 mg / 0.5 (3 ml) UD IH PRN (01:15)
--- NOTE | 2017-11-13 05:03 | CON ---
DATE: 11/12/2017 REASON FOR CONSULTATION: Hyponatremia, renal insufficiency, chest pain. HISTORY OF PRESENTING ILLNESS: An 82-year-old lady admitted on 11/04/2017 with complaints of chest pain, shortness of breath, dyspnea on exertion. Patient thought to have pneumonia, non ST elevation UT, being treated with antibiotics, aspirin. Consultation is requested for severe hyponatremia and sodium was 114 yesterday. Sodium was 135 at the time of admission. Patient has been receiving p.r.n. Lasix. PAST MEDICAL AND SURGICAL HISTORY: CAD, history of angioplasty, hypertension, NIDDM, multiple episodes of GI bleed, partial colectomy, COPD, chronic kidney disease stage IV. FAMILY HISTORY: Noncontributory. SOCIAL HISTORY: No smoking. No alcohol use. No IV drug abuse. ALLERGIES: CIPRO. MEDICATIONS: At home, Naprosyn, multivitamin, Imdur, iron, insulin, glipizide, Lasix, amlodipine, Protonix and tramadol. REVIEW OF SYSTEMS: Complains of chest pressure, shortness of breath, fatigue. Denies any nausea or vomiting. Denies any diarrhea. PHYSICAL EXAMINATION: GENERAL: Elderly lady, lying in bed. VITAL SIGNS: Blood pressure 148/67, heart rate 95, respiratory rate 20, temperature 97.4. HEENT: Normocephalic, atraumatic, positive pallor. NECK: Supple, no JVD. LUNGS: Bilateral equal air entry, bilateral rhonchi, expiratory wheeze. CARDIAC: S1 and S2, regular rate and rhythm, no murmur, no rub. ABDOMEN: Distended, soft, bowel sounds present. INTAKE AND OUTPUT: 740/not charted. LABORATORY DATA: WBC is 14.4, hemoglobin 10, hematocrit 28, platelet 165. Sodium 124, potassium 4.2, chloride 94, CO2 of 21, BUN 66, creatinine 2.2, glucose 100, calcium 7.9, albumin 3.4, corrected calcium 8.3. AST 145, ALT 125, albumin 3.4. Urinalysis on the 4th, yellow, clear, pH is 6, specific gravity 1.025, protein 100, glucose 500, blood moderate. DIAGNOSTIC DATA: CT of the chest, dense multiple areas of consolidation in the left lower lobe and left upper lobe, multifocal pneumonia. CURRENT MEDICATIONS: Aspirin, DuoNeb, Glucotrol, insulin, Kayexalate 30 g given yesterday and Lasix 40 IV given today. ASSESSMENT: 1. Multilobar pneumonia. 2. Coronary artery disease. 3. Acute kidney injury superimposing chronic kidney disease stage IV. 4. Severe hyponatremia. 5. Hyperkalemia, resolved. 6. High anion gap metabolic acidosis. 7. Hyperglycemia. PLAN: 1. Repeat urinalysis. 2. Urine sodium. 3. Urine osmolality. 4. Serum uric acid. 5. Continue 3% saline. 6. Avoid excessive use of Kayexalate. 7. Suspect SIADH in the setting of acute lung process. Frieda Rodriguez MD
[2017-11-13] MEDS: Levalbuterol 0.63 MG/3 ML Inhal Soln UD IH SCH ×3 (08:11→19:54)
[2017-11-13] MEDS: Insulin Lispro (humaLOG) MEDIUM Coverage SC SCH ×4 (08:12→22:16)
[2017-11-13] MEDS: Insulin Lispro (humaLOG) MIX 75/25(10 ml) SC SCH (08:13)
[2017-11-13] MEDS: Meropenem 500 MG in Sodium Chloride 0.9% 50 ML IVPB SCH ×2 (09:34→22:16)
[2017-11-13] MEDS: Pantoprazole 20 mg EC Tab PO SCH (09:35)
[2017-11-13] MEDS: MethylPREDNISolone 40 mg Vial IV SCH ×2 (09:39→22:16)
--- NOTE | 2017-11-13 12:08 | CP.PCM.PN ---
Subjective - Date & Time of Evaluation Date of Evaluation: 11/13/17 Time of Evaluation: 09:30 - Subjective Subjective: Patient is feeling a little better today, no fevers but still with cough, less short of breath at rest. Objective - Vital Signs/Intake and Output Vital Signs (last 24 hours): Temp Pulse Resp BP Pulse Ox 97.8 F 83 19 103/45 L 100 11/13/17 06:00 11/13/17 06:00 11/13/17 06:00 11/13/17 06:00 11/13/17 06:00 Intake and Output: 11/12/17 11/13/17 18:59 06:59 Intake Total 720 820 Output Total 400 600 Balance 320 220 - Medications Medications: Current Medications Acetaminophen (Tylenol 325mg Tab) 650 mg PO Q6H PRN PRN Reason: Fever >100.4 F Last Admin: 11/12/17 17:00 Dose: 650 mg Acetaminophen (Tylenol 325mg Tab) 650 mg PO Q6H PRN PRN Reason: Pain, Mild (1-3) Last Admin: 11/09/17 20:12 Dose: 650 mg Albuterol/Ipratropium (Duoneb 3 Mg/0.5 Mg (3 Ml) Ud) 3 ml IH Q2H PRN PRN Reason: Shortness of Breath Last Admin: 11/13/17 01:15 Dose: 3 ml Amlodipine Besylate (Norvasc) 10 mg PO DAILY [facility] Last Admin: 11/12/17 09:32 Dose: 10 mg Aspirin (Aspirin Chewable) 81 mg PO DAILY [facility] Last Admin: 11/12/17 09:31 Dose: 81 mg Doxycycline Hyclate (Doryx) 100 mg PO Q12 JAK PRN Reason: Protocol Guaifenesin/Dextromethorphan (Robitussin Dm) 10 ml PO Q6H PRN PRN Reason: Cough Last Admin: 11/12/17 22:39 Dose: 10 ml Hydralazine HCl (Apresoline) 10 mg IVP Q6H PRN PRN Reason: Systolic Blood Pressure Meropenem 500 mg/ Sodium (Chloride) 50 mls @ 100 mls/hr IVPB Q12 JAK PRN Reason: Protocol Stop: 11/14/17 22:01 Last Admin: 11/12/17 22:39 Dose: 100 mls/hr Sodium Chloride (Hypertonic Saline 3%) 500 mls @ 20 mls/hr IV .Q24H [facility] Last Admin: 11/12/17 17:00 Dose: 20 mls/hr Insulin Detemir (Levemir) 25 unit SC HS [facility] Last Admin: 11/12/17 22:37 Dose: 25 units Insulin Human Lispro (Humalog Med) 0 units SC ACHS [facility] PRN Reason: Protocol Last Admin: 11/12/17 22:00 Dose: Not Given Insulin Lispro Protam/Lispro Human (Humalog Mix 75/25) 20 units SC .BEFOREDINNER [facility] Insulin Lispro Protam/Lispro Human (Humalog Mix 75/25) 25 units SC ACB [facility] Last Admin: 11/12/17 09:20 Dose: Not Given Isosorbide Mononitrate (Imdur) 60 mg PO DAILY [facility] Last Admin: 11/12/17 09:30 Dose: 60 mg Levalbuterol HCl (Xopenex) 0.63 mg IH TIDRESP [facility] Last Admin: 11/12/17 19:00 Dose: 0.63 mg Methylprednisolone (Solu-Medrol) 30 mg IV Q12 [facility] Last Admin: 11/12/17 22:35 Dose: 30 mg Ondansetron HCl (Zofran Inj) 4 mg IVP Q6H PRN PRN Reason: Nausea/Vomiting Last Admin: 11/12/17 09:44 Dose: 4 mg Pantoprazole Sodium (Protonix Ec Tab) 20 mg PO DAILY [facility] Last Admin: 11/12/17 09:30 Dose: 20 mg Tramadol/Acetaminophen (Ultracet 37.5/325 Mg) 1 tab PO Q6H PRN PRN Reason: Pain, moderate (4-7) Last Admin: 11/12/17 22:38 Dose: 1 tab - Labs Labs: 11/12/17 11:40 11/12/17 12:40 PT 14.2 SECONDS (9.4-12.5) H 11/04/17 19:55 INR 1.24 (0.93-1.08) H 11/04/17 19:55 APTT 32.3 Seconds (25.1-36.5) 11/04/17 19:55 - Constitutional Appears: Chronically Ill - Head Exam Head Exam: NORMAL INSPECTION - ENT Exam ENT Exam: Mucous Membranes Moist - Neck Exam Neck Exam: absent: Lymphadenopathy, Meningismus - Respiratory Exam Respiratory Exam: Decreased Breath Sounds - Cardiovascular Exam Cardiovascular Exam: +S1, +S2 - GI/Abdominal Exam GI & Abdominal Exam: Soft. absent: Tenderness Assessment and Plan - Assessment and Plan (Free Text) Plan: Assessment multifocal HCAP on top of acute on chronic CHF consider reactive airway disease HTN DM CAD S/P PCI GI AV malformation with history of GI bleeding chronic renal failure COPD history of UTI Plan on Merrem day 8 and added Doxycycline - may continue up to 10 days depending on clinical picture patient started on bronchodilators and Steroids by PMD on lasix as well - repeat BNP is more elevated and the serum Sodium is abnormal - PMD managing this, and patient is now on hypertonic saline will continue to monitor clinically
--- NOTE | 2017-11-13 13:06 | PN ---
DATE: 11/13/2017 SUBJECTIVE: The patient is 82 years old, seen and examined. Seems to be doing a little better today. Less shortness of breath, still has cough. Complained of feeling very tired, difficulty sleeping. Eating poorly. PHYSICAL EXAMINATION: VITAL SIGNS: She is afebrile. Pulse 83, respirations 19, blood pressure 144/71. LUNGS: Bilateral soft crackles and occasional wheezing. HEART: S1, S2 audible. ABDOMEN: Soft, nontender. No rebound, no guarding. NEUROLOGIC: She is alert, awake, oriented, able to communicate. DATA: Blood sugar is 111. ASSESSMENT: 1. Hyponatremia, multifactorial secondary to pulmonary infiltrate and insulin dependent diabetes. 2. Multilobar pneumonia. 3. [id number] renal insufficiency. 4. Metabolic acidosis. 5. Hyperkalemia that has resolved. 6. Cardiac cirrhosis. 7. Leukocytosis, improving. PLAN: We will continue the patient on IV Lasix. I will order for CBC and CMP today to evaluate the need if we can discontinue hypertonic, I will need to give her more. Out of bed to chair. Continue nebulizer treatment. Continue doxycycline and meropenem and continue to monitor blood sugar. Harsh Morataya MD
[2017-11-13 13:08] LABS: ALBUMIN 2.8 g/dL (3.0-4.8); CALCIUM 7.7 mg/dL (8.4-10.5)
--- NOTE | 2017-11-13 16:05 | PN ---
DATE: 11/13/2017 SUBJECTIVE: The patient is currently seen lying comfortable in bed on telemetry. She has no shortness of breath. She continues on IV antibiotic therapy for her multi lobe pneumonia. She is also on 3% saline. Her sodium level is now up to 132. Diagnostics for her hyponatremia whenever sent. MEDICATIONS: Medication list reviewed. The patient is currently on Apresoline p.r.n., aspirin, doxycycline, DuoNeb, insulin, hypertonic saline 20 mL an hour, Imdur, meropenem, Norvasc, Protonix, Robitussin, Solu-Medrol, Tylenol p.r.n., Ultracet, Xopenex and Zofran. OBJECTIVE: INTAKE/OUTPUT: Intake is 1540, output is 1000. VITAL SIGNS: Blood pressure 135/60, temperature 97.8 with a respiratory rate of 18. Pulse was 86. HEENT: Shows her to be normocephalic, atraumatic. Conjunctivae are pale. Sclerae are nonicteric. NECK: Supple. No neck vein distention. CHEST: Scattered rhonchi. No rales or wheezing. CARDIOVASCULAR: Shows a regular rate and rhythm with AI/MR/TR. No S3. No S4. No rub. ABDOMEN: Soft. Bowel sounds normal. No rebound, guarding or masses. EXTREMITIES: Show no lower extremity cyanosis, clubbing or edema. LABORATORY DATA AND IMAGING: Admitting chest CT showed a multi lobe pneumonia, left lower lobe and right upper lobe. Admitting chest x-ray showed mild pulmonary vascular congestion. Echocardiogram showed a normal ejection fraction at 71% with pulmonary hypertension, aortic insufficiency, mitral regurgitation and tricuspid regurgitation. Labs: CBC: White blood cell count 14.4, hemoglobin 10.3, platelet count is 165,000. Chemistries show sodium which is now up to 132 from a low of 114. Potassium is down to 4 from a high of 5.8. BUN is up to 62 from 28. This is on steroids. Creatinine is up from 1.5 to 2.1 with a baseline creatinine in 2017 in the 1.3 range. Urines were done on 11/05/2017, but no urine electrolytes were done to assess the hyponatremia. Microbiology: All cultures are negative. Blood cultures negative at 5 days. Urine cultures are negative. ASSESSMENT: 1. Acute renal failure superimposed on chronic kidney disease stage 3. This is perhaps in the setting of pneumonia. Perhaps in the setting of steroid use. The patient is currently not receiving any diuretic therapy. 2. Multi lobe pneumonia. The patient continues on antibiotic therapy. 3. Status post severe hyponatremia. This resolved with the administration of 3% saline at 20 mL an hour. Tolvaptan was not used. Urine diagnostics were not sent. The patient will discontinue 3% saline post completion of present bag today. 4. History of atherosclerotic heart disease, status post percutaneous transluminal coronary angioplasty stent. Aortic insufficiency/mitral regurgitation/tricuspid regurgitation. History of pulmonary hypertension. Ejection fraction is 71%. 5. History of partial colectomy for gastrointestinal bleeding. 6. Past history of chronic obstructive pulmonary disease. 7. History of anemia. 8. Status post mild hyperkalemia, resolved with Kayexalate. 9. History of hypertension. Blood pressure controlled on present medical therapy. 10. DNR/DNI noted. PLAN: 1. We will discontinue 3% saline post completion of present bag. 2. Continue IV antibiotic therapy. 3. Attempt to decrease steroid dose as soon as possible. This is likely contributing to the elevation of BUN. 4. Continue present blood pressure medication and cardiac medications. 5. Continue to monitor accurate I's and O's and labs on a daily basis. 6. For IDDM, continue sliding scale insulin along with long-acting insulin. Ga Braden MD
[2017-11-13] MEDS: Sodium Chloride 3% 500 ML IV SCH (16:06)
[2017-11-13] MEDS: guaiFENesin DM 200 mg-20 mg/10 ml UD PO PRN (18:34)
[2017-11-13] MEDS: Insulin Detemir 100 units/ml Vial (Levemir) SC SCH (22:15)
[2017-11-14] MEDS: guaiFENesin DM 200 mg-20 mg/10 ml UD PO PRN ×2 (00:24→16:52)
[2017-11-14 01:14] LABS: URINE BILIRUBIN NEGATIVE (NEGATIVE); URINE BLOOD MODERATE (NEGATIVE); URINE GLUCOSE (UA) NEGATIVE (NEGATIVE); URINE LEUKOCYTE ESTERASE NEGATIVE Leu/uL (NEGATIVE); URINE PROTEIN 30 mg/dL (<30 mg/dL); URINE UROBILINOGEN 0.2 E.U./dL (<1 E.U./dL)
[2017-11-14 01:15] LABS: URINE APPEARANCE SLIGHT-CLOUDY (CLEAR); URINE COLOR YELLOW (YELLOW)
[2017-11-14 01:31] LABS: URINE WBC NEGATIVE /hpf (0-6)
[2017-11-14 01:32] LABS: URINE BACTERIA MOD (NEG)
[2017-11-14 06:18] LABS: HEMOGLOBIN 9.3 g/dL (12.0-16.0); MEAN CORPUSCULAR HEMOGLOBIN 32.5 pg (25.0-35.0); MEAN CORPUSCULAR HGB CONC 35.4 g/dl (31.0-37.0); MEAN PLATELET VOLUME 9.5 fl (7.0-11.0); RBC 2.86 10^6/uL (3.5-6.1); RED CELL DISTRIBUTION WIDTH 12.7 % (11.5-14.5); WHITE BLOOD COUNT 11.9 10^3/ul (4.5-11.0)
[2017-11-14 06:30] LABS: ALB/GLOB RATIO 1.1 (1.1-1.8); ALBUMIN 2.7 g/dL (3.0-4.8); CALCIUM 7.9 mg/dL (8.4-10.5)
[2017-11-14] MEDS: Insulin Lispro (humaLOG) MIX 75/25(10 ml) SC SCH (08:00)
[2017-11-14] MEDS: Insulin Lispro (humaLOG) MEDIUM Coverage SC SCH ×4 (08:01→21:46)
[2017-11-14] MEDS: Levalbuterol 0.63 MG/3 ML Inhal Soln UD IH SCH ×3 (08:10→20:21)
[2017-11-14] MEDS: MethylPREDNISolone 40 mg Vial IV SCH ×3 (10:30→21:29)
[2017-11-14] MEDS: Pantoprazole 20 mg EC Tab PO SCH (10:31)
--- NOTE | 2017-11-14 10:37 | PN ---
DATE: 11/14/2017 CARDIOLOGY FOLLOWUP SUBJECTIVE: The patient still complains of cough. No shortness of breath noted. PHYSICAL EXAMINATION: VITAL SIGNS: Blood pressure is 130/67, the heart rate is in the 80s. NECK: Negative JVD. LUNGS: Rhonchi noted. HEART: Reveals S1, S2. EXTREMITIES: Without edema. LABORATORY DATA: BUN and creatinine are 68 and 2. Hemoglobin is 9.3, white count is down to 11.9. IMPRESSION: 1. Recurrent cough. 2. Pneumonia. 3. Anemia. 4. Stable angina. 5. Coronary artery disease. 6. Weakness. PLAN: Given these findings, we need to mobilize the patient. We will discontinue telemetry today. Geovanni Moses MD
[2017-11-14] MEDS: Meropenem 500 MG in Sodium Chloride 0.9% 50 ML IVPB SCH ×2 (10:47→21:32)
--- NOTE | 2017-11-14 12:59 | PN ---
DATE: 11/14/2017 SUBJECTIVE: The patient is 82 years old, seen and examined, sitting in chair. Seems to be comfortable. Still has cough. Mild shortness of breath. Gets more short of breath on walking. PHYSICAL EXAMINATION: VITAL SIGNS: She is afebrile, pulse 92, respirations 18, blood pressure 141/70. LUNGS: Bilateral few occasional expiratory rhonchi with soft crackles, scattered. HEART: S1 and S2 audible. ABDOMEN: Soft. Nontender. No rebound. No guarding. NEUROLOGICAL: She is awake, alert, oriented, communicative. EXTREMITIES: Bilateral legs, no edema. LABORATORY EXAM: WBC is 11.9, hemoglobin 9.3, hematocrit 26.3, platelet of 191. Chemistry: Sodium 132, potassium 4.3, chloride 102, CO2 of 22, BUN 68, creatinine 2, blood sugar 256. Blood culture, urine cultures were negative. ASSESSMENT: 1. Multilobar pneumonia. 2. Status post hyponatremia that has been corrected. 3. History of hypertension. 4. Chronic kidney disease. 5. Insulin-dependent diabetes. 6. Dilated left atrium. 7. Mild to moderate mitral regurgitation, mild tricuspid regurgitation with pulmonary hypertension. 8. Cardiac cirrhosis. 9. 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 PLAN: We will continue the patient on current antibiotic. Continue on nebulizer treatment. We will continue to monitor blood sugar. She is on doxycycline. We will continue that. She is also on meropenem. She is on Solu-Medrol 30 every 12. We will cut down her steroid to 20 every 12 and she has response. We will continue her on Lasix. We will follow up her electrolyte in the a.m. Continue telemetry monitoring. Harsh Morataya MD
--- NOTE | 2017-11-14 14:55 | CP.PCM.PN ---
Subjective - Date & Time of Evaluation Date of Evaluation: 11/14/17 Time of Evaluation: 09:35 - Subjective Subjective: Patient is breathing a little better, no fevers. Objective - Vital Signs/Intake and Output Vital Signs (last 24 hours): Temp Pulse Resp BP Pulse Ox 97.7 F 83 20 130/67 97 11/14/17 05:12 11/14/17 05:14 11/14/17 05:12 11/14/17 05:12 11/14/17 05:12 Intake and Output: 11/13/17 11/14/17 18:59 06:59 Intake Total 480 350 Output Total 200 Balance 480 150 - Medications Medications: Current Medications Acetaminophen (Tylenol 325mg Tab) 650 mg PO Q6H PRN PRN Reason: Fever >100.4 F Last Admin: 11/12/17 17:00 Dose: 650 mg Acetaminophen (Tylenol 325mg Tab) 650 mg PO Q6H PRN PRN Reason: Pain, Mild (1-3) Last Admin: 11/14/17 04:08 Dose: 650 mg Albuterol/Ipratropium (Duoneb 3 Mg/0.5 Mg (3 Ml) Ud) 3 ml IH Q2H PRN PRN Reason: Shortness of Breath Last Admin: 11/13/17 01:15 Dose: 3 ml Amlodipine Besylate (Norvasc) 10 mg PO DAILY [facility] Last Admin: 11/13/17 09:35 Dose: 10 mg Aspirin (Aspirin Chewable) 81 mg PO DAILY [facility] Last Admin: 11/13/17 09:35 Dose: 81 mg Doxycycline Hyclate (Doryx) 100 mg PO Q12 [facility] PRN Reason: Protocol Last Admin: 11/13/17 22:17 Dose: 100 mg Guaifenesin/Dextromethorphan (Robitussin Dm) 10 ml PO Q6H PRN PRN Reason: Cough Last Admin: 11/14/17 00:24 Dose: 10 ml Hydralazine HCl (Apresoline) 10 mg IVP Q6H PRN PRN Reason: Systolic Blood Pressure Meropenem 500 mg/ Sodium (Chloride) 50 mls @ 100 mls/hr IVPB Q12 [facility] PRN Reason: Protocol Stop: 11/14/17 22:01 Last Admin: 11/13/17 22:16 Dose: 100 mls/hr Insulin Detemir (Levemir) 25 unit SC HS [facility] Last Admin: 11/13/17 22:15 Dose: Not Given Insulin Human Lispro (Humalog Med) 0 units SC ACHS [facility] PRN Reason: Protocol Last Admin: 11/13/17 22:16 Dose: Not Given Insulin Lispro Protam/Lispro Human (Humalog Mix 75/25) 20 units SC .BEFOREDINNER [facility] Insulin Lispro Protam/Lispro Human (Humalog Mix 75/25) 25 units SC ACB [facility] Last Admin: 11/13/17 08:13 Dose: Not Given Isosorbide Mononitrate (Imdur) 60 mg PO DAILY [facility] Last Admin: 11/13/17 09:35 Dose: 60 mg Levalbuterol HCl (Xopenex) 0.63 mg IH TIDRESP [facility] Last Admin: 11/13/17 19:54 Dose: 0.63 mg Methylprednisolone (Solu-Medrol) 30 mg IV Q12 [facility] Last Admin: 11/13/17 22:16 Dose: 30 mg Ondansetron HCl (Zofran Inj) 4 mg IVP Q6H PRN PRN Reason: Nausea/Vomiting Last Admin: 11/12/17 09:44 Dose: 4 mg Pantoprazole Sodium (Protonix Ec Tab) 20 mg PO DAILY [facility] Last Admin: 11/13/17 09:35 Dose: 20 mg Tramadol/Acetaminophen (Ultracet 37.5/325 Mg) 1 tab PO Q6H PRN PRN Reason: Pain, moderate (4-7) Last Admin: 11/12/17 22:38 Dose: 1 tab - Labs Labs: 11/14/17 05:30 11/14/17 05:30 PT 14.2 SECONDS (9.4-12.5) H 11/04/17 19:55 INR 1.24 (0.93-1.08) H 11/04/17 19:55 APTT 32.3 Seconds (25.1-36.5) 11/04/17 19:55 - Constitutional Appears: Chronically Ill - Head Exam Head Exam: NORMAL INSPECTION - Respiratory Exam Respiratory Exam: Decreased Breath Sounds - Cardiovascular Exam Cardiovascular Exam: +S1, +S2 - GI/Abdominal Exam GI & Abdominal Exam: Soft. absent: Tenderness Assessment and Plan - Assessment and Plan (Free Text) Plan: Assessment multifocal HCAP on top of acute on chronic CHF consider reactive airway disease HTN DM CAD S/P PCI GI AV malformation with history of GI bleeding chronic renal failure COPD history of UTI Plan on Merrem day 9 and added Doxycycline - may continue up to 10 days depending on clinical picture patient started on bronchodilators and Steroids by PMD on lasix as well will continue to monitor clinically
--- NOTE | 2017-11-14 15:57 | PN ---
DATE: 11/14/2017 SUBJECTIVE: The patient is seen walking in the room with therapist. She appears to be in mild respiratory distress. PHYSICAL EXAMINATION: GENERAL: Elderly lady, sitting in chair. VITAL SIGNS: Blood pressure 141/70, heart rate 92, respiratory rate 18, temperature 97.1. HEENT: Normocephalic, atraumatic, positive pallor. NECK: Supple, no JVD. LUNGS: bilateral equal air entry, bilateral equal expansion. CARDIAC: S1 and S2, regular rate and rhythm, no murmur, no rub. ABDOMEN: Obese, distended, soft, nontender, bowel sounds present. EXTREMITIES: 1+ pitting edema of the lower extremities. INTAKE AND OUTPUT: Not charted. LABORATORY DATA: WBC 11.9, hemoglobin 9.3, hematocrit 26, platelets 191. Sodium 132, potassium 4.3, chloride 102, CO2 of 22, BUN 68, creatinine 2, glucose 209, calcium 7.9, phosphorus 4.3, magnesium 2.7, AST 110, ALT 125, albumin 2.7, corrected calcium 8.9. Urinalysis: Yellow, slightly cloudy, pH 6, specific gravity 1.010, protein 30, blood moderate. Urine sodium 8, urine osmolality 420. CURRENT MEDICATIONS: Apresoline p.r.n., aspirin, doxycycline 100 every 12, DuoNeb, Humalog insulin, Imdur 60, Lasix 20 IV, Levemir 25, meropenem 500 every 12, amlodipine 10, Protonix 20, Solu-Medrol 20 IV every 12, Tylenol, Ultracet, Xopenex, Zofran. ASSESSMENT: 1. Acute kidney injury superimposed on chronic kidney disease stage 3, renal function stabilizing. 2. Multilobar pneumonia. 3. Status post severe hyponatremia. 4. Coronary artery disease, percutaneous transluminal coronary angioplasty and stent. 5. Aortic insufficiency, mitral regurgitation, tricuspid regurgitation. 6. Pulmonary hypertension. 7. Recurrent gastrointestinal bleed, history of partial colectomy. 8. Chronic obstructive pulmonary disease. 9. Anemia. 10. Hypertension. PLAN: 1. Sodium is acceptable now. 3% saline has been discontinued. 2. Continue IV antibiotics. 3. Taper steroids. 4. Continue current antihypertensives. 5. Physical therapy. 6. Conservative management. Frieda Rodriguez MD [facility] # [id number]
[2017-11-14] MEDS: Insulin Detemir 100 units/ml Vial (Levemir) SC SCH (21:32)
[2017-11-14] MEDS: TraMADol/Apap 37.5/325 mg Tab PO PRN (21:50)
[2017-11-15 06:46] LABS: HEMOGLOBIN 9.8 g/dL (12.0-16.0); MEAN CELL VOLUME 91.9 fl (80.0-105.0); MEAN CORPUSCULAR HEMOGLOBIN 32.9 pg (25.0-35.0); MEAN CORPUSCULAR HGB CONC 35.8 g/dl (31.0-37.0); MEAN PLATELET VOLUME 9.9 fl (7.0-11.0); RBC 2.98 10^6/uL (3.5-6.1); WHITE BLOOD COUNT 11.6 10^3/ul (4.5-11.0)
[2017-11-15 07:26] LABS: ALB/GLOB RATIO 1.1 (1.1-1.8); ALBUMIN 2.8 g/dL (3.0-4.8)
[2017-11-15] MEDS: Insulin Lispro (humaLOG) MIX 75/25(10 ml) SC SCH (08:00)
[2017-11-15] MEDS: Levalbuterol 0.63 MG/3 ML Inhal Soln UD IH SCH ×3 (08:21→19:58)
[2017-11-15] MEDS: Insulin Lispro (humaLOG) MEDIUM Coverage SC SCH ×4 (08:44→21:23)
[2017-11-15] MEDS: MethylPREDNISolone 40 mg Vial IV SCH ×2 (09:58→21:22)
[2017-11-15] MEDS: Pantoprazole 20 mg EC Tab PO SCH (09:59)
--- NOTE | 2017-11-15 16:05 | CP.PCM.PN ---
Subjective - Date & Time of Evaluation Date of Evaluation: 11/15/17 Time of Evaluation: 09:50 - Subjective Subjective: Sitting on a chair, feeling more comfortable, no fevers, not in distress, cough is less. Objective - Vital Signs/Intake and Output Vital Signs (last 24 hours): Temp Pulse Resp BP Pulse Ox 97.5 F L 86 20 142/67 100 11/14/17 18:00 11/14/17 18:00 11/14/17 18:00 11/14/17 18:00 11/14/17 18:00 Intake and Output: 11/15/17 11/15/17 06:59 18:59 Intake Total 240 Output Total 200 Balance 40 - Medications Medications: Current Medications Acetaminophen (Tylenol 325mg Tab) 650 mg PO Q6H PRN PRN Reason: Fever >100.4 F Last Admin: 11/14/17 18:47 Dose: 650 mg Acetaminophen (Tylenol 325mg Tab) 650 mg PO Q6H PRN PRN Reason: Pain, Mild (1-3) Last Admin: 11/14/17 04:08 Dose: 650 mg Albuterol/Ipratropium (Duoneb 3 Mg/0.5 Mg (3 Ml) Ud) 3 ml IH Q2H PRN PRN Reason: Shortness of Breath Last Admin: 11/13/17 01:15 Dose: 3 ml Amlodipine Besylate (Norvasc) 10 mg PO DAILY [facility] Last Admin: 11/14/17 10:31 Dose: 10 mg Aspirin (Aspirin Chewable) 81 mg PO DAILY [facility] Last Admin: 11/14/17 10:31 Dose: 81 mg Doxycycline Hyclate (Doryx) 100 mg PO Q12 [facility] PRN Reason: Protocol Last Admin: 11/14/17 21:32 Dose: 100 mg Furosemide (Lasix) 20 mg IVP DAILY [facility] Guaifenesin/Dextromethorphan (Robitussin Dm) 10 ml PO Q6H PRN PRN Reason: Cough Last Admin: 11/14/17 16:52 Dose: 10 ml Hydralazine HCl (Apresoline) 10 mg IVP Q6H PRN PRN Reason: Systolic Blood Pressure Insulin Detemir (Levemir) 25 unit SC HS [facility] Last Admin: 11/14/17 21:32 Dose: 25 units Insulin Human Lispro (Humalog Med) 0 units SC ACHS [facility] PRN Reason: Protocol Last Admin: 11/14/17 21:46 Dose: Not Given Insulin Lispro Protam/Lispro Human (Humalog Mix 75/25) 20 units SC .BEFOREDINNER [facility] Insulin Lispro Protam/Lispro Human (Humalog Mix 75/25) 25 units SC ACB [facility] Last Admin: 11/14/17 08:00 Dose: Not Given Isosorbide Mononitrate (Imdur) 60 mg PO DAILY [facility] Last Admin: 11/14/17 10:34 Dose: 60 mg Levalbuterol HCl (Xopenex) 0.63 mg IH TIDRESP [facility] Last Admin: 11/14/17 20:21 Dose: 0.63 mg Methylprednisolone (Solu-Medrol) 20 mg IV Q12 [facility] Last Admin: 11/14/17 21:29 Dose: 20 mg Ondansetron HCl (Zofran Inj) 4 mg IVP Q6H PRN PRN Reason: Nausea/Vomiting Last Admin: 11/12/17 09:44 Dose: 4 mg Pantoprazole Sodium (Protonix Ec Tab) 20 mg PO DAILY [facility] Last Admin: 11/14/17 10:31 Dose: 20 mg Tramadol/Acetaminophen (Ultracet 37.5/325 Mg) 1 tab PO Q6H PRN PRN Reason: Pain, moderate (4-7) Last Admin: 11/14/17 21:50 Dose: 1 tab - Labs Labs: 11/14/17 05:30 11/14/17 05:30 PT 14.2 SECONDS (9.4-12.5) H 11/04/17 19:55 INR 1.24 (0.93-1.08) H 11/04/17 19:55 APTT 32.3 Seconds (25.1-36.5) 11/04/17 19:55 - Constitutional Appears: Chronically Ill - Head Exam Head Exam: NORMAL INSPECTION - Neck Exam Neck Exam: absent: Meningismus - Respiratory Exam Respiratory Exam: Decreased Breath Sounds - Cardiovascular Exam Cardiovascular Exam: +S1, +S2 - GI/Abdominal Exam GI & Abdominal Exam: Soft. absent: Tenderness Assessment and Plan - Assessment and Plan (Free Text) Plan: Assessment multifocal HCAP on top of acute on chronic CHF, slowly improving consider reactive airway disease HTN DM CAD S/P PCI GI AV malformation with history of GI bleeding chronic renal failure COPD history of UTI Plan S/P 9 days of Merrem day 9 and on Doxycycline - may continue up to 10 days (up to tomorrow) patient started on bronchodilators and Steroids by PMD on lasix as well will continue to monitor clinically
--- NOTE | 2017-11-15 17:02 | PN ---
DATE: 11/15/2017 SUBJECTIVE: The patient is an 82-year-old, seen and examined, sitting in chair. Seems to be a little comfortable. Still has mild shortness of breath. Cough is dry now. Denies any nausea or vomiting. Complains of decreased appetite though. PHYSICAL EXAMINATION VITAL SIGNS: The patient is afebrile, pulse 56, respirations 21, blood pressure 142/55. LUNGS: Bilateral fair airflow. No rhonchi or crackle. HEART: S1 and S2 audible. ABDOMEN: Soft. Nontender. No rebound. No guarding. NEUROLOGIC: She is awake, alert, oriented, communicative. EXTREMITIES: Bilateral legs, no edema. LABORATORY DATA: WBC is 11.6, hemoglobin 9.8, hematocrit 27.4, platelet of 194. Chemistry: Sodium 129, potassium 4.4, chloride 99, CO2 of 20, BUN 77, creatinine 1.9, blood sugar of 182. ASSESSMENT: 1. Multilobar pneumonia, improving. 2. Hypertension. 3. Hyperlipidemia. 4. Insulin-dependent diabetes. 5. Coronary artery disease. 6. History of gastric arteriovenous malformations, status post partial colectomy. PLAN: We will continue the patient on current medication including IV steroid for another day. I will continue on PPI. Hold her fluids because BUN and creatine are creeping up. Physical therapy evaluation has been requested. Might be transferred to TCU if bed available. Harsh Morataya MD
[2017-11-15] MEDS: guaiFENesin DM 200 mg-20 mg/10 ml UD PO PRN (17:23)
--- NOTE | 2017-11-15 19:15 | PN ---
DATE: 11/15/2017 SUBJECTIVE: The patient is seen lying in bed. She is in mild respiratory distress. PHYSICAL EXAMINATION: GENERAL: Elderly lady lying in bed. VITAL SIGNS: Blood pressure 142/55, heart rate 60, respiratory rate 21, and temperature 97.5. HEENT: Normocephalic, atraumatic. NECK: Supple, no JVD. LUNGS: Bilateral equal air entry, bilateral rhonchi. CARDIAC: S1 and S2, regular rate and rhythm, no murmur, no rub. ABDOMEN: Distended, soft, nontender, bowel sounds present. EXTREMITIES: No lower extremity edema. INTAKE AND OUTPUT: 640/200 LABORATORY DATA: WBC 11.6, hemoglobin 9.8, hematocrit 27, and platelets 194. Sodium 129, potassium 4.4, chloride 99, CO2 of 20. BUN 77, creatinine 1.9. Glucose 333. Calcium 8. AST 79, ALT 119. Albumin 2.8. Urinalysis, yellow, slightly cloudy, pH 6, specific 1.010, protein 30, blood moderate. CURRENT MEDICATIONS: Aspirin, doxycycline, DuoNeb, insulin, Imdur 60, Levemir 25, amlodipine 10, Protonix 20, Robitussin, Solu-Medrol, Tylenol, Ultracet, and Xopenex. IMPRESSION: 1. Hyponatremia, much improved. 2. Acute kidney injury superimposed on chronic kidney disease stage IV. 3. Anemia, history of recurrent gastrointestinal bleed. 4. Multilobar pneumonia. 5. Coronary artery disease, percutaneous transluminal coronary angioplasty and stent. 6. Aortic insufficiency, mitral regurgitation, tricuspid regurgitation. 7. Chronic obstructive pulmonary disease. 8. Pulmonary hypertension. PLAN: 1. Continue to monitor sodium, no indication for any therapeutic intervention at this time. 2. Continue IV antibiotics, all IV fluids to be normal saline. 3. Continue current antihypertensives. 4. Physical therapy. 5. DNR/DNI noted. Frieda Rodriguez MD
[2017-11-15] MEDS: TraMADol/Apap 37.5/325 mg Tab PO PRN (21:22)
[2017-11-15] MEDS: Insulin Detemir 100 units/ml Vial (Levemir) SC SCH (21:22)
[2017-11-16 06:49] LABS: HEMOGLOBIN 9.7 g/dL (12.0-16.0); MEAN CELL VOLUME 91.6 fl (80.0-105.0); MEAN CORPUSCULAR HEMOGLOBIN 32.7 pg (25.0-35.0); MEAN CORPUSCULAR HGB CONC 35.7 g/dl (31.0-37.0); MEAN PLATELET VOLUME 9.7 fl (7.0-11.0); RBC 2.97 10^6/uL (3.5-6.1); RED CELL DISTRIBUTION WIDTH 12.8 % (11.5-14.5); WHITE BLOOD COUNT 12.2 10^3/ul (4.5-11.0)
[2017-11-16 06:52] LABS: ALBUMIN 2.6 g/dL (3.0-4.8); CALCIUM 8.1 mg/dL (8.4-10.5)
[2017-11-16] MEDS: Levalbuterol 0.63 MG/3 ML Inhal Soln UD IH SCH ×3 (07:59→20:35)
[2017-11-16] MEDS: Insulin Lispro (humaLOG) MEDIUM Coverage SC SCH ×4 (08:22→22:00)
[2017-11-16] MEDS: Insulin Lispro (humaLOG) MIX 75/25(10 ml) SC SCH (08:28)
[2017-11-16] MEDS: MethylPREDNISolone 40 mg Vial IV SCH ×2 (09:43→21:08)
[2017-11-16] MEDS: Pantoprazole 20 mg EC Tab PO SCH (09:44)
--- NOTE | 2017-11-16 12:17 | CP.PCM.PN ---
Subjective - Date & Time of Evaluation Date of Evaluation: 11/16/17 Time of Evaluation: 10:45 - Subjective Subjective: Feels a little better but still feels weak, no fevers, cough is better. Objective - Vital Signs/Intake and Output Vital Signs (last 24 hours): Temp Pulse Resp BP Pulse Ox 97.6 F 52 L 18 123/46 L 98 11/16/17 06:00 11/16/17 06:00 11/16/17 06:00 11/16/17 06:00 11/16/17 06:00 Intake and Output: 11/16/17 11/16/17 06:59 18:59 Intake Total 540 Output Total 800 Balance -260 - Medications Medications: Current Medications Acetaminophen (Tylenol 325mg Tab) 650 mg PO Q6H PRN PRN Reason: Fever >100.4 F Last Admin: 11/14/17 18:47 Dose: 650 mg Acetaminophen (Tylenol 325mg Tab) 650 mg PO Q6H PRN PRN Reason: Pain, Mild (1-3) Last Admin: 11/16/17 03:46 Dose: 650 mg Albuterol/Ipratropium (Duoneb 3 Mg/0.5 Mg (3 Ml) Ud) 3 ml IH Q2H PRN PRN Reason: Shortness of Breath Last Admin: 11/13/17 01:15 Dose: 3 ml Amlodipine Besylate (Norvasc) 10 mg PO DAILY [facility] Last Admin: 11/15/17 09:59 Dose: 10 mg Aspirin (Aspirin Chewable) 81 mg PO DAILY [facility] Last Admin: 11/15/17 09:59 Dose: 81 mg Doxycycline Hyclate (Doryx) 100 mg PO Q12 [facility] PRN Reason: Protocol Last Admin: 11/15/17 21:23 Dose: 100 mg Guaifenesin/Dextromethorphan (Robitussin Dm) 10 ml PO Q6H PRN PRN Reason: Cough Last Admin: 11/15/17 17:23 Dose: 10 ml Hydralazine HCl (Apresoline) 10 mg IVP Q6H PRN PRN Reason: Systolic Blood Pressure Insulin Detemir (Levemir) 25 unit SC HS [facility] Last Admin: 11/15/17 21:22 Dose: 25 units Insulin Human Lispro (Humalog Med) 0 units SC ACHS [facility] PRN Reason: Protocol Last Admin: 11/16/17 08:22 Dose: Not Given Insulin Lispro Protam/Lispro Human (Humalog Mix 75/25) 20 units SC .BEFOREDINNER [facility] Insulin Lispro Protam/Lispro Human (Humalog Mix 75/25) 25 units SC ACB [facility] Last Admin: 11/16/17 08:28 Dose: Not Given Isosorbide Mononitrate (Imdur) 60 mg PO DAILY [facility] Last Admin: 11/15/17 09:59 Dose: 60 mg Levalbuterol HCl (Xopenex) 0.63 mg IH TIDRESP [facility] Last Admin: 11/16/17 07:59 Dose: 0.63 mg Methylprednisolone (Solu-Medrol) 20 mg IV Q12 [facility] Last Admin: 11/15/17 21:22 Dose: 20 mg Ondansetron HCl (Zofran Inj) 4 mg IVP Q6H PRN PRN Reason: Nausea/Vomiting Last Admin: 11/12/17 09:44 Dose: 4 mg Pantoprazole Sodium (Protonix Ec Tab) 20 mg PO DAILY [facility] Last Admin: 11/15/17 09:59 Dose: 20 mg Tramadol/Acetaminophen (Ultracet 37.5/325 Mg) 1 tab PO Q6H PRN PRN Reason: Pain, moderate (4-7) Last Admin: 11/15/17 21:22 Dose: 1 tab - Labs Labs: 11/16/17 06:00 11/16/17 06:00 PT 14.2 SECONDS (9.4-12.5) H 11/04/17 19:55 INR 1.24 (0.93-1.08) H 11/04/17 19:55 APTT 32.3 Seconds (25.1-36.5) 11/04/17 19:55 - Constitutional Appears: Non-toxic, Chronically Ill - Head Exam Head Exam: NORMAL INSPECTION - ENT Exam ENT Exam: Mucous Membranes Moist - Neck Exam Neck Exam: absent: Lymphadenopathy, Meningismus - Respiratory Exam Respiratory Exam: Decreased Breath Sounds - Cardiovascular Exam Cardiovascular Exam: +S1, +S2 - GI/Abdominal Exam GI & Abdominal Exam: Soft. absent: Tenderness Assessment and Plan - Assessment and Plan (Free Text) Plan: Assessment multifocal HCAP on top of acute on chronic CHF, S/P treatment with antibiotics consider reactive airway disease HTN DM CAD S/P PCI GI AV malformation with history of GI bleeding chronic renal failure COPD history of UTI Plan S/P Merrem and Doxycycline - will continue to monitor the patient off antibiotics on bronchodilators and Steroids by PMD and lasix
[2017-11-16] MEDS ORDERED: POLYETHYLENE GLYCOL 3350 17 GM/Dose PACKET PO PRN (15:21)
[2017-11-16] MEDS: POLYETHYLENE GLYCOL 3350 17 GM/Dose PACKET PO SCH (15:33)
--- NOTE | 2017-11-16 17:45 | PN ---
DATE: 11/16/2017 SUBJECTIVE: The patient is currently seen on 3R. She is lying comfortable supine in bed. She appears to be in no distress. IV fluids have been discontinued. The patient remains on tapering doses of steroids with mild elevation of her BUN and creatinine above her baseline levels. MEDICATIONS: Medication list reviewed. The patient is on hydralazine, aspirin, DuoNeb, insulin, Imdur, MiraLax, Norvasc, Protonix, Robitussin p.r.n., Solu-Medrol, Tylenol, Ultracet, Xopenex and Zofran. PHYSICAL EXAMINATION INTAKE/OUTPUT: Intake 540, output 800. VITAL SIGNS: Blood pressure controlled, temperature 97.6, pulse of 52 with a respiratory rate of 18. HEENT: Shows her to be normocephalic, atraumatic. Conjunctivae are pale. Sclerae nonicteric. NECK: Supple. No neck vein distention. CHEST: Clear to auscultation and percussion with no audible rhonchi, wheezing or rales. CARDIOVASCULAR: Regular rate and rhythm with AI/MR/TR. No S3, no S4, no rub. ABDOMEN: Soft. Bowel sounds normal. No rebound, guarding or masses. EXTREMITIES: Show no lower extremity cyanosis, clubbing or edema. LABORATORY DATA AND IMAGING: Labs today, CBC, white blood cell count is 12.2 with a hemoglobin of 9.7 and a platelet count of 176,000. Coags are normal. Chemistries from today, normal electrolytes, sodium is now 134 up from a low of 114. BUN is up to 80 as the patient appears to be in negative fluid balance and she is on steroids. She is not receiving any diuretic therapy at this point in time. BUN was 20 on admission, it is currently 80. Creatinine was 1.5 on admission and it went as high as 2.4 and it is now 1.8. Calcium is 8.1. Last phosphorus was 4.3. Last magnesium level was 2.7. Albumin is 2.6. ASSESSMENT: 1. Acute renal failure superimposed on chronic kidney disease, stage III/IV. This is in the setting of pneumonia. Perhaps steroid use, perhaps secondary to the patient being a negative fluid balance over the last several days. 2. Multilobar pneumonia. The patient was on a course of antibiotic therapy. She has been followed by Infectious Disease. She has completed a full 10-day course of antibiotics. 3. Status post severe hyponatremia. Urine diagnostics were not sent perhaps secondary to syndrome of inappropriate antidiuretic in the setting of pneumonia. With 3% saline, her sodium level had corrected. 4. History of atherosclerotic heart disease, status post percutaneous transluminal coronary angioplasty and stents, history of aortic insufficiency, mitral regurgitation, tricuspid regurgitation. Normal ejection fraction 71%, history of pulmonary hypertension. 5. History of partial colectomy for gastrointestinal bleeding. 6. Past history of chronic obstructive pulmonary disease. 7. History of anemia. 8. History of mild hyperkalemia, treated with Kayexalate and now she is better. She has normal potassium levels. 9. History of hypertension. Blood pressure is controlled on current medical therapy. 10. Do not resuscitate/do not intubate. PLAN: 1. The patient is essentially stable from our standpoint, she remains mildly prerenal. I will suggest perhaps switch over to oral steroid therapy with a quick tapering. 2. Encourage p.o. fluid hydration as she remains mildly prerenal. 3. Monitor for any lower extremity edema. To try and avoid diuretic therapy. 4. Continue to monitor sugar levels and continue sliding scale insulin along with long-acting insulin. 5. Continue to monitor accurate I's and O's while inpatient. Ga Braden MD [facility] # [id number] MTDD
--- NOTE | 2017-11-16 20:42 | PN ---
DATE: 11/16/2017 SUBJECTIVE: Patient is 82 years old, seen and examined, complained of cough, mild shortness of breath, decreased appetite. No nausea or vomiting. No rectal bleeding, no hemoptysis, no hematemesis. OBJECTIVE: VITAL SIGNS: She is afebrile, pulse 82, respirations 18, and blood pressure 123/46. LUNGS: Bilateral fair airflow. No rhonchi or crackles. HEART: S1 and S2 audible. ABDOMEN: Soft, nontender, no rebound, no guarding. NEUROLOGICAL: She is awake, alert, oriented, and communicative. LABORATORY EXAM: WBC is 12.2, hemoglobin 9.7, hematocrit 27, and platelets 176. Sodium 134, potassium 4.6, chloride 101, CO2 of 24. BUN 80, creatinine 1.8. Blood sugar of 111. AST 78, ALT 110. ASSESSMENT: 1. Multilobar pneumonia. 2. Insulin-dependent diabetes. 3. Hypertension. 4. Hyperlipidemia. 5. Coronary artery disease. PLAN: We will continue current medications. Continue nebulizer treatment and encourage physical therapy. Social service is to plan for subacute rehab . Harsh Morataya MD
[2017-11-16] MEDS: TraMADol/Apap 37.5/325 mg Tab PO PRN (21:07)
[2017-11-16] MEDS: Insulin Detemir 100 units/ml Vial (Levemir) SC SCH (21:08)
[2017-11-17 06:36] LABS: HEMOGLOBIN 9.9 g/dL (12.0-16.0); MEAN CELL VOLUME 91.8 fl (80.0-105.0); MEAN CORPUSCULAR HEMOGLOBIN 32.6 pg (25.0-35.0); MEAN CORPUSCULAR HGB CONC 35.5 g/dl (31.0-37.0); MEAN PLATELET VOLUME 9.8 fl (7.0-11.0); RBC 3.04 10^6/uL (3.5-6.1); RED CELL DISTRIBUTION WIDTH 13.1 % (11.5-14.5); WHITE BLOOD COUNT 11.3 10^3/ul (4.5-11.0)
[2017-11-17 06:51] LABS: ALBUMIN 2.6 g/dL (3.0-4.8); CALCIUM 8.1 mg/dL (8.4-10.5)
[2017-11-17] MEDS: Insulin Lispro (humaLOG) MEDIUM Coverage SC SCH ×4 (07:30→21:49)
[2017-11-17] MEDS: Insulin Lispro (humaLOG) MIX 75/25(10 ml) SC SCH (07:30)
[2017-11-17] MEDS: Levalbuterol 0.63 MG/3 ML Inhal Soln UD IH SCH ×3 (07:43→19:50)
[2017-11-17] MEDS: Pantoprazole 20 mg EC Tab PO SCH (10:01)
[2017-11-17] MEDS: POLYETHYLENE GLYCOL 3350 17 GM/Dose PACKET PO SCH (10:01)
[2017-11-17] MEDS: MethylPREDNISolone 40 mg Vial IV SCH ×2 (10:02→21:49)
[2017-11-17] MEDS: guaiFENesin DM 200 mg-20 mg/10 ml UD PO PRN (10:04)
--- NOTE | 2017-11-17 11:55 | PN ---
DATE: 11/17/2017 SUBJECTIVE: Ms. Winters is an 82-year-old female admitted to the hospital with chest pain, cough. She was found to have bilateral pneumonia. She is currently on IV antibiotics. No fever. No nausea or vomiting. She has chronic anemia. Dieulafoy lesions in the stomach, which bleed chronically. She also has leukocytosis, white count has been declining since admission. PAST MEDICAL HISTORY: Hypertension, diabetes mellitus type 2, coronary artery disease, partial colectomy, multiple episodes of GI bleed, COPD, and chronic kidney disease. ALLERGIES: CIPRO. SOCIAL HISTORY: Lives at home with her . PERSONAL HISTORY: Nonsmoker. No history of alcohol abuse. HOME MEDICATION: Naproxen, ferrous sulfate, glipizide, amlodipine, Protonix, tramadol. REVIEW OF SYSTEMS: As per HPI. Rest of 12-point review of systems reviewed negative. PHYSICAL EXAMINATION: GENERAL: Awake, alert, oriented. VITAL SIGNS: Stable. Temperature 98.7, heart rate 70 per minute, respiratory rate 18 per minute, blood pressure 110/70. HEENT: Pallor positive. NECK: No lymphadenopathy. CHEST: Air entry present and equal bilaterally. No added sounds. CARDIOVASCULAR: S1 and S2 normal. No murmur. No gallop. ABDOMEN: Soft, nontender. No hepatosplenomegaly. EXTREMITIES: No edema. SPINE: Nontender. SKIN: Pallor positive. LABORATORY DATA: Sodium 133, potassium 5.4, creatinine 1.6. White count 11.3, hemoglobin 9.9, platelets 164. ASSESSMENT: 1. Bilateral pneumonia. 2. Coronary artery disease. 3. 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 4. Leukocytosis. 5. Anemia. PLAN: She has chronic anemia and required multiple blood transfusion. She has declined IV iron as outpatient. She is currently on oral iron. We will continue DuoNeb, Norvasc 10 mg daily, hydralazine, Solu-Medrol taper, MiraLax, tramadol p.r.n. She is still on Solu-Medrol every 12 hours, we will consider transitioning it to oral. Blood counts are stable. White count is declining, initially it was 17,000, now 11,000. We will continue to monitor blood counts. Cathleen Hampton MD [facility] # [id number]
[2017-11-17] MEDS ORDERED: Sod Polystyrene Sulf 15 gm/60 ml Susp PO ONE (12:01)
--- NOTE | 2017-11-17 14:47 | PN ---
DATE: 11/17/2017 SUBJECTIVE: The patient is seen sitting on commode. She is awake. She is alert. She is complaining of cough. She is complaining of shortness of breath. She is complaining of retrosternal chest pain. PHYSICAL EXAMINATION: GENERAL: Elderly lady, sitting in chair. VITAL SIGNS: Blood pressure 141/60, heart rate 59, respiratory rate 21, temperature 97.2. HEENT: Normocephalic, atraumatic, positive pallor. NECK: Supple, no JVD. LUNGS: Bilateral equal air entry, bilateral equal expansion, no rales appreciated. CARDIAC: S1 and S2, regular rate and rhythm, no murmur, no rub. ABDOMEN: Obese, distended, soft, nontender, bowel sounds present. EXTREMITIES: No lower extremity edema. INTAKE AND OUTPUT: 240/250. LABORATORY DATA: WBC 11, hemoglobin 9.9, hematocrit 28, platelets 164. Sodium 133, potassium 5.4, chloride 102, CO2 of 24, BUN 82, creatinine 1.6, glucose 151, calcium 8.1, phosphorus 4.7, magnesium 2.8, total bili 1.4, AST 102, ALT 139, albumin 2.6. CURRENT MEDICATIONS: Apresoline, aspirin, DuoNeb, insulin, Imdur, MiraLax, Norvasc 10, Protonix, Robitussin, Solu-Medrol, Tylenol, Xopenex. ASSESSMENT: 1. Multilobar pneumonia. 2. Rlu-utqrldj-yhiylscra diabetes mellitus.. 3. Hypertension. 4. Coronary artery disease. 5. Recurrent gastrointestinal bleed. 6. Chronic kidney disease stage 4. 7. Hyperkalemia, mild. 8. Anemia of chronic disease. PLAN: 1. Continue antibiotics as per ID recommendations. 2. Avoid nephrotoxins. 3. No indication for any treatment for hyperkalemia right now. 4. Continue MiraLax. 5. Monitor labs. Frieda Rodriguez MD
--- NOTE | 2017-11-17 16:30 | PN ---
DATE: 11/17/2017 CARDIOLOGY FOLLOWUP SUBJECTIVE: The patient is chest pain free. Her cough is much improved. PHYSICAL EXAMINATION VITAL SIGNS: Blood pressure is 141/60, the heart rate is in the 60s. NECK: Negative JVD. LUNGS: Decreased breath sounds without rales. HEART: Reveals S1 and S2. EXTREMITIES: Without edema. LABORATORY DATA: Hemoglobin is 9.9. Chemistries: BUN and creatinine is 82 and 1.6. IMPRESSION: 1. Stable anemia. 2. Stable angina. 3. Coronary artery disease. 4. History of gastrointestinal bleed in the past. 5. Prerenal azotemia. 6. Diabetes mellitus. 7. Bilateral pneumonia. PLAN: Given these findings, I have encouraged the patient to take p.o. fluids. The patient's hemoglobin is stable. Her cardiac status is stable. Geovanni Moses MD
[2017-11-17] MEDS: Insulin Detemir 100 units/ml Vial (Levemir) SC SCH (21:50)
[2017-11-17] MEDS: TraMADol/Apap 37.5/325 mg Tab PO PRN (21:50)
[2017-11-18] MEDS: guaiFENesin DM 200 mg-20 mg/10 ml UD PO PRN ×2 (06:05→22:48)
[2017-11-18 07:04] LABS: HEMOGLOBIN 10.5 g/dL (12.0-16.0); MEAN CORPUSCULAR HEMOGLOBIN 32.5 pg (25.0-35.0); MEAN CORPUSCULAR HGB CONC 35.4 g/dl (31.0-37.0); MEAN PLATELET VOLUME 9.6 fl (7.0-11.0); RBC 3.23 10^6/uL (3.5-6.1); RED CELL DISTRIBUTION WIDTH 12.9 % (11.5-14.5); WHITE BLOOD COUNT 12.7 10^3/ul (4.5-11.0)
[2017-11-18 07:26] LABS: ALB/GLOB RATIO 1.1 (1.1-1.8); ALBUMIN 2.9 g/dL (3.0-4.8); CALCIUM 8.5 mg/dL (8.4-10.5)
[2017-11-18] MEDS: Insulin Lispro (humaLOG) MIX 75/25(10 ml) SC SCH (07:30)
[2017-11-18] MEDS: Insulin Lispro (humaLOG) MEDIUM Coverage SC SCH ×4 (07:30→22:10)
[2017-11-18] MEDS: Levalbuterol 0.63 MG/3 ML Inhal Soln UD IH SCH ×3 (07:52→20:13)
[2017-11-18] MEDS: POLYETHYLENE GLYCOL 3350 17 GM/Dose PACKET PO SCH (09:31)
[2017-11-18] MEDS: Pantoprazole 20 mg EC Tab PO SCH (09:31)
[2017-11-18] MEDS: MethylPREDNISolone 40 mg Vial IV SCH ×2 (09:32→22:48)
--- NOTE | 2017-11-18 10:07 | PN ---
DATE: 11/18/2017 FOLLOWUP NOTE SUBJECTIVE: She is comfortable in bed, in no acute distress. Complaining of little heartburn yesterday. No events overnight. Hemoglobin and hematocrit have been stable. Creatinine has been stable. REVIEW OF SYSTEMS: As per HPI. Rest of 12-point review of systems reviewed negative. PHYSICAL EXAMINATION GENERAL: Comfortable in bed, awake, alert, oriented. Pallor positive. VITAL SIGNS: Temperature 98.8, heart rate is 60 per minute, respiratory rate 20 per minute, blood pressure 120/70. NECK: No lymphadenopathy. CHEST: Air entry present and equal bilateral. No added sound. CARDIOVASCULAR: S1 and S2 normal. No murmur. No gallop. ABDOMEN: Soft, nontender. No hepatosplenomegaly. EXTREMITY: No edema. SPINE: Nontender. SKIN: Pallor positive. No petechiae. MEDICATIONS: Reviewed. LABORATORY DATA: Sodium 137, potassium 4.7, creatinine 1.7, glucose 87. White count 12.7, hemoglobin 10.5, hematocrit 29, platelet 149. ASSESSMENT: 1. Bilateral pneumonia. 2. Coronary artery disease. 3. History of gastrointestinal bleed with arteriovenous malformation in the stomach. 4. Leukocytosis. 6. Anemia, multifactorial. PLAN: Blood counts are currently stable. White count is declining. Coags are within normal limits. Creatinine is stable at 1.7. We will continue Tylenol. Continue bronchodilators. She is on insulin. Solu-Medrol 20 every 12, we will continue to wean. Protonix daily. She is off antibiotics now. Yesterday, potassium was elevated, given Kayexalate. Potassium is normal at 4.7. Cathleen Hampton MD
--- NOTE | 2017-11-18 16:32 | PN ---
DATE: 11/18/2017 SUBJECTIVE: The patient is seen earlier room in room bed 360. No fevers and chills. No events overnight. PHYSICAL EXAMINATION: VITAL SIGNS: Temperature is 97, blood pressure is 140/60, respiratory rate of 18. HEENT: Examination of HEENT is unremarkable. NECK: Supple. LUNGS: Have decreased breath sounds. HEART: Normal S1, S2. ABDOMEN: Soft, nontender. LABORATORY DATA: Laboratory examination reveals a white count of 12,700, hemoglobin of 10, platelets of 149. BUN of 82, creatinine of 1.7. Urinalysis is noted. Microbiology reveals urine and blood cultures are negative. Review of orders reveals the patient to be on Solu-Medrol. Dr. Hampton's note from today is reviewed. Dr. Geovanni Moses's progress note from yesterday is reviewed. ASSESSMENT AND PLAN: An 82-year-old female, seen earlier today in 360 with multifocal healthcare-associated pneumonia and acute and chronic congestive heart failure, status post treatment with antibiotics, bronchodilators and steroids. Currently off of antibiotics. The patient is at risk for developing nosocomial infections. Yovany Otero MD
--- NOTE | 2017-11-18 22:39 | CP.PCM.PN ---
Subjective - Date & Time of Evaluation Date of Evaluation: 11/18/17 Time of Evaluation: 22:39 - Subjective Subjective: S:Patient was seen because she requested a sleeping pill. Has no other complaints now. Medical record was reviewed. O: Last Vital Signs 3 Temp 97.9 F 11/18/17 18:00 Pulse 70 11/18/17 18:00 Resp 19 11/18/17 18:00 BP 144/63 11/18/17 18:00 Pulse Ox 100 11/18/17 18:00 Awake, alert. Not in distress. LUNGS:Normal breathing pattern. NEURO:Speech normal. A:Insomnia. P:Ambien 5 mg PO x 1. Objective - Vital Signs/Intake and Output Vital Signs (last 24 hours): Temp Pulse Resp BP Pulse Ox 97.9 F 70 19 144/63 100 11/18/17 18:00 11/18/17 18:00 11/18/17 18:00 11/18/17 18:00 11/18/17 18:00 Intake and Output: 11/18/17 11/19/17 18:59 06:59 Intake Total 600 Output Total 200 Balance 400 - Medications Medications: Current Medications Acetaminophen (Tylenol 325mg Tab) 650 mg PO Q6H PRN PRN Reason: Fever >100.4 F Last Admin: 11/14/17 18:47 Dose: 650 mg Acetaminophen (Tylenol 325mg Tab) 650 mg PO Q6H PRN PRN Reason: Pain, Mild (1-3) Last Admin: 11/17/17 05:55 Dose: 650 mg Albuterol/Ipratropium (Duoneb 3 Mg/0.5 Mg (3 Ml) Ud) 3 ml IH Q2H PRN PRN Reason: Shortness of Breath Last Admin: 11/13/17 01:15 Dose: 3 ml Amlodipine Besylate (Norvasc) 10 mg PO DAILY [facility] Last Admin: 11/18/17 09:31 Dose: 10 mg Aspirin (Aspirin Chewable) 81 mg PO DAILY [facility] Last Admin: 11/18/17 09:30 Dose: 81 mg Guaifenesin/Dextromethorphan (Robitussin Dm) 10 ml PO Q6H PRN PRN Reason: Cough Last Admin: 11/18/17 06:05 Dose: 10 ml Hydralazine HCl (Apresoline) 10 mg IVP Q6H PRN PRN Reason: Systolic Blood Pressure Insulin Detemir (Levemir) 25 unit SC HS [facility] Last Admin: 11/17/17 21:50 Dose: 25 units Insulin Human Lispro (Humalog Med) 0 units SC ACHS [facility] PRN Reason: Protocol Last Admin: 11/18/17 18:49 Dose: Not Given Insulin Lispro Protam/Lispro Human (Humalog Mix 75/25) 20 units SC .BEFOREDINNER [facility] Insulin Lispro Protam/Lispro Human (Humalog Mix 75/25) 25 units SC ACB [facility] Last Admin: 11/18/17 07:30 Dose: Not Given Isosorbide Mononitrate (Imdur) 60 mg PO DAILY [facility] Last Admin: 11/18/17 09:31 Dose: 60 mg Levalbuterol HCl (Xopenex) 0.63 mg IH TIDRESP [facility] Last Admin: 11/18/17 20:13 Dose: 0.63 mg Methylprednisolone (Solu-Medrol) 20 mg IV Q12 [facility] Last Admin: 11/18/17 09:32 Dose: 20 mg Ondansetron HCl (Zofran Inj) 4 mg IVP Q6H PRN PRN Reason: Nausea/Vomiting Last Admin: 11/12/17 09:44 Dose: 4 mg Pantoprazole Sodium (Protonix Ec Tab) 20 mg PO DAILY [facility] Last Admin: 11/18/17 09:31 Dose: 20 mg Polyethylene Glycol (Miralax) 17 gm PO DAILY [facility] Last Admin: 11/18/17 09:31 Dose: 17 gm Tramadol/Acetaminophen (Ultracet 37.5/325 Mg) 1 tab PO Q6H PRN PRN Reason: Pain, moderate (4-7) Last Admin: 11/17/17 21:50 Dose: 1 tab Zolpidem Tartrate (Ambien) 5 mg PO STAT [facility] PRN Reason: Protocol Stop: 11/18/17 22:39 - Labs Labs: 11/18/17 06:30 11/18/17 06:30 PT 14.2 SECONDS (9.4-12.5) H 11/04/17 19:55 INR 1.24 (0.93-1.08) H 11/04/17 19:55 APTT 32.3 Seconds (25.1-36.5) 11/04/17 19:55
[2017-11-18] MEDS: TraMADol/Apap 37.5/325 mg Tab PO PRN (22:49)
[2017-11-19] MEDS: Levalbuterol 0.63 MG/3 ML Inhal Soln UD IH SCH ×2 (07:24→13:41)
[2017-11-19] MEDS: Insulin Lispro (humaLOG) MIX 75/25(10 ml) SC SCH (07:42)
[2017-11-19] MEDS: Insulin Lispro (humaLOG) MEDIUM Coverage SC SCH ×3 (07:42→17:06)
[2017-11-19] MEDS: MethylPREDNISolone 40 mg Vial IV SCH (09:03)
[2017-11-19] MEDS: POLYETHYLENE GLYCOL 3350 17 GM/Dose PACKET PO SCH ×2 (09:03→10:05)
[2017-11-19] MEDS: Pantoprazole 20 mg EC Tab PO SCH (09:03)
--- NOTE | 2017-11-19 09:13 | PN ---
DATE: 11/17/2017 SUBJECTIVE: The patient is in bed, in no acute distress, nontoxic. OBJECTIVE: VITAL SIGNS: Temperature is 97, blood pressure is 140/60, respiratory rate of 21, heart rate of 59. HEENT: Unremarkable. NECK: Supple. LUNGS: Decreased breath sounds. HEART: Normal S1, S2. ABDOMEN: Soft, nontender. LABORATORY EXAMINATION: Reveals a white count of 11,300, hemoglobin of 9, and platelets of 164. Chemistries reveal a BUN of 82, creatinine of 1.6. LFTs are noted and urinalysis is noted. Blood cultures are negative. Urine cultures are negative. ASSESSMENT AND PLAN: An 82-year-old female seen earlier today in room 360, bed 2 with multifocal healthcare-associated pneumonia on top of acute on chronic congestive heart failure, status post treatment with antibiotics with hypertension, reactive airway disease, diabetes, coronary artery disease, status post percutaneous coronary intervention, history of gastrointestinal arteriovenous malformation, and chronic renal failure, has completed antibiotic therapy with meropenem and doxycycline. Currently off antibiotics. Review of the medications reveals the patient to be off antibiotics and the patient is on Solu-Medrol. The patient is at risk for developing nosocomial infections. We will follow with you. Yovany Otero MD
--- NOTE | 2017-11-19 12:21 | DS ---
HISTORY OF PRESENT ILLNESS: The patient is 82 years old, who was admitted with cough, congestion, shortness of breath, was found to have multilobar pneumonia, has been started on IV antibiotic, nebulizer treatment. She drifted into CHF. She was treated appropriately. She has acute on chronic renal failure, also had episode of hyponatremia, hypertonic saline was given. Was monitored on telemetry. Started to do well. Still has cough and congestion. No fever. No chills. PHYSICAL EXAMINATION: VITAL SIGNS: She is afebrile, pulse 66, respirations 20, . LUNGS: Bilateral fair airflow. No rhonchi or crackle. HEART: S1 and S2 audible. ABDOMEN: Soft. Nontender. No rebound. No guarding. NEUROLOGICAL: The patient is awake, alert, oriented. Able to communicate. Has difficulty walking longer distance when she walks to the commode. LABORATORY EXAM: Blood sugar is 237. WBC is 12.7, hemoglobin 10.5, hematocrit 29.7, platelet 149. Blood culture, urine cultures are negative. ASSESSMENT: 1. Multilobar pneumonia, improving. 2. Congestive heart failure, acute on chronic, stable now. 3. Coronary artery disease, status post multiple angioplasty. 4. Acute on chronic renal failure. 5. Chronic anemia. 6. Cardiac cirrhosis. 7. Thrombocytopenia. 8. 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 PLAN: Currently, the patient continue on nebulizer treatment, monitor blood sugar. We will reevaluate the patient. The patient will be discharged to [facility] and I will follow up the patient in the longterm. Harsh Morataya MD
--- NOTE | 2017-11-19 15:08 | PN ---
DATE: 11/19/2017 SUBJECTIVE: The patient is seen sitting in chair. She is awake. She is alert. She is in mild respiratory distress. PHYSICAL EXAMINATION: VITAL SIGNS: Blood pressure 153/69, heart rate 66, respiratory rate 22, temperature 97.5. HEENT: Normocephalic, atraumatic, positive pallor. NECK: Supple, no JVD. LUNGS: Bilateral rhonchi, bilateral equal expansion, scattered rhonchi. CARDIAC: S1 and S2, regular rate and rhythm, no murmur, no rub. ABDOMEN: Obese, distended, soft, nontender, bowel sounds present. EXTREMITIES: No lower extremity edema. INTAKE AND OUTPUT: 720/550. LABORATORY DATA: WBC 12.7, hemoglobin 10.5, hematocrit 30, platelets 149. No chemistry today. CURRENT MEDICATIONS: Ambien, Apresoline, aspirin, DuoNeb, insulin, Imdur, MiraLax, amlodipine, Protonix, Solu-Medrol, Tylenol, Ultracet, Xopenex, Zofran. ASSESSMENT: 1. 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 2. Resolved hyponatremia. 3. Multilobar pneumonia, improving. 4. Congestive heart failure. 5. Coronary artery disease. 6. Chronic anemia. 7. Cardiac cirrhosis. PLAN: 1. Complete course of antibiotics. 2. Continue respiratory treatments. 3. Monitor fingersticks and continue insulin. 4. Stable from renal standpoint. Frieda Rodriguez MD
--- NOTE | 2017-11-19 15:53 | CP.PCM.PN ---
Subjective - Date & Time of Evaluation Date of Evaluation: 11/19/17 Time of Evaluation: 13:50 - Subjective Subjective: Patient is feeling better, no fevers, not in distress. Cough is improved. Objective - Vital Signs/Intake and Output Vital Signs (last 24 hours): Temp Pulse Resp BP Pulse Ox 97.5 F L 66 22 153/69 H 98 11/19/17 06:00 11/19/17 06:00 11/19/17 06:00 11/19/17 06:00 11/19/17 06:00 Intake and Output: 11/19/17 11/19/17 06:59 18:59 Intake Total 120 Output Total 350 Balance -230 - Medications Medications: Current Medications Acetaminophen (Tylenol 325mg Tab) 650 mg PO Q6H PRN PRN Reason: Fever >100.4 F Last Admin: 11/14/17 18:47 Dose: 650 mg Acetaminophen (Tylenol 325mg Tab) 650 mg PO Q6H PRN PRN Reason: Pain, Mild (1-3) Last Admin: 11/17/17 05:55 Dose: 650 mg Albuterol/Ipratropium (Duoneb 3 Mg/0.5 Mg (3 Ml) Ud) 3 ml IH Q2H PRN PRN Reason: Shortness of Breath Last Admin: 11/13/17 01:15 Dose: 3 ml Amlodipine Besylate (Norvasc) 10 mg PO DAILY [facility] Last Admin: 11/18/17 09:31 Dose: 10 mg Aspirin (Aspirin Chewable) 81 mg PO DAILY [facility] Last Admin: 11/18/17 09:30 Dose: 81 mg Guaifenesin/Dextromethorphan (Robitussin Dm) 10 ml PO Q6H PRN PRN Reason: Cough Last Admin: 11/18/17 22:48 Dose: 10 ml Hydralazine HCl (Apresoline) 10 mg IVP Q6H PRN PRN Reason: Systolic Blood Pressure Insulin Detemir (Levemir) 25 unit SC [facility] Last Admin: 11/17/17 21:50 Dose: 25 units Insulin Human Lispro (Humalog Med) 0 units SC [facility] PRN Reason: Protocol Last Admin: 11/19/17 07:42 Dose: Not Given Insulin Lispro Protam/Lispro Human (Humalog Mix 75/25) 20 units SC [facility] Insulin Lispro Protam/Lispro Human (Humalog Mix 75/25) 25 units SC ACB [facility] Last Admin: 11/19/17 07:42 Dose: Not Given Isosorbide Mononitrate (Imdur) 60 mg PO DAILY [facility] Last Admin: 11/18/17 09:31 Dose: 60 mg Levalbuterol HCl (Xopenex) 0.63 mg IH TIDRESP [facility] Last Admin: 11/19/17 07:24 Dose: 0.63 mg Methylprednisolone (Solu-Medrol) 20 mg IV Q12 [facility] Last Admin: 11/18/17 22:48 Dose: 20 mg Ondansetron HCl (Zofran Inj) 4 mg IVP Q6H PRN PRN Reason: Nausea/Vomiting Last Admin: 11/12/17 09:44 Dose: 4 mg Pantoprazole Sodium (Protonix Ec Tab) 20 mg PO DAILY [facility] Last Admin: 11/18/17 09:31 Dose: 20 mg Polyethylene Glycol (Miralax) 17 gm PO DAILY [facility] Last Admin: 11/18/17 09:31 Dose: 17 gm Tramadol/Acetaminophen (Ultracet 37.5/325 Mg) 1 tab PO Q6H PRN PRN Reason: Pain, moderate (4-7) Last Admin: 11/18/17 22:49 Dose: 1 tab - Labs Labs: 11/18/17 06:30 11/18/17 06:30 PT 14.2 SECONDS (9.4-12.5) H 11/04/17 19:55 INR 1.24 (0.93-1.08) H 11/04/17 19:55 APTT 32.3 Seconds (25.1-36.5) 11/04/17 19:55 - Constitutional Appears: Chronically Ill - Head Exam Head Exam: NORMAL INSPECTION - ENT Exam ENT Exam: Mucous Membranes Moist - Neck Exam Neck Exam: absent: Meningismus - Respiratory Exam Respiratory Exam: Decreased Breath Sounds - Cardiovascular Exam Cardiovascular Exam: +S1, +S2 - GI/Abdominal Exam GI & Abdominal Exam: Soft. 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
[2017-11-19 18:14] VITALS: BP 151/64; PULSE 74; RESP 18; TEMP 97.8; O2SAT 97
--- NOTE | 2017-11-20 09:43 | PQF CHF ---
This form is a permanent part of the medical record Dr. Morataya, documentation of acute on chronic CHF=please specify the type---is it systolic, diastolic, or combine Echocardiogram in 11/12=LVEF=70% with an indication of CHF Clarification of your documentation is requested to better reflect the severity of illness and intensity of treatment of your patient. Indicators present [x] Diagnosis of CHF and/or history of CHF [] BNP > 200 [] Imaging Finding of Pulmonary Edema /Pleural Effusions [] Fluid/Volume Overload [] Pitting edema [] Ejection Fraction < 40% (Indicative of Systolic Heart Failure) [] Ejection Fraction > 40% (Indicative of Diastolic Heart Failure) [] Dyspnea / Orthopenea / Paroxysmal Nocturnal Dyspnea [] Other: Location in the medical record that reflects the above clinical findings: [] Dr. Morataya's/Dr. Hutchison's PNs Treatment Provided: [] PHYSICIAN'S RESPONSE Based on your medical judgment of the clinical indicators outlined above, are you treating this patient for a known or suspected: [] Acute CHF [] Systolic [] Diastolic [] Combined [] Chronic CHF [] Systolic [] Diastolic [] Combined [] Acute on Chronic CHF []Systolic [] Diastolic [] Combined [] CHF due hypertension [] Acute systolic []Chronic systolic [] Acute/ chronic systolic [] Other, please indicate: [] [] If Unable to Determine, please check the box, sign and date. Present On Admission (POA) Indicator: [] Present at the time of admission [] Not present at the time of admission [] Clinically Undetermined In responding to this query, please exercise your independent professional judgment. The fact that a question is asked does not imply that any particular answer is desired or expected. Thank you for your clarification on this documentation. If you have any questions please call:[ ] * Thank you, [ ] internet webmaster BRENDEN
--- NOTE | 2017-11-22 10:59 | PQF CHF ---
This form is a permanent part of the medical record Doctor, Acute on top of chronic CHF documented= need type of CHF Clarification of your documentation is requested to better reflect the severity of illness and intensity of treatment of your patient. Indicators present [x] Diagnosis of CHF and/or history of CHF [] BNP > 200 [] Imaging Finding of Pulmonary Edema /Pleural Effusions [] Fluid/Volume Overload [] Pitting edema [] Ejection Fraction < 40% (Indicative of Systolic Heart Failure) [] Ejection Fraction > 40% (Indicative of Diastolic Heart Failure) [] Dyspnea / Orthopenea / Paroxysmal Nocturnal Dyspnea [] Other: Location in the medical record that reflects the above clinical findings: [] Treatment Provided: [] PHYSICIAN'S RESPONSE Based on your medical judgment of the clinical indicators outlined above, are you treating this patient for a known or suspected: [] Acute CHF [] Systolic [] Diastolic [] Combined [] Chronic CHF [] Systolic [] Diastolic [] Combined [x] Acute on Chronic CHF []Systolic [] Diastolic [] Combined [] CHF due hypertension [] Acute systolic []Chronic systolic [] Acute/ chronic systolic [] Other, please indicate: [] [] If Unable to Determine, please check the box, sign and date. Present On Admission (POA) Indicator: [x] Present at the time of admission [] Not present at the time of admission [] Clinically Undetermined In responding to this query, please exercise your independent professional judgment. The fact that a question is asked does not imply that any particular answer is desired or expected. Thank you for your clarification on this documentation. If you have any questions please call:[ ] * Thank you, [ ]billings garage laborer BRENDEN
== END 2017-11-19 20:50 | DRG 194 ==
LOC: ED 19:40 → ERH 23:36 → 2RSO 11-05 16:36 → 5RNO 11-07 18:37 → 2RNO 11-11 15:16 → 3RNO 11-14 13:19
PROVIDERS: ADMIT Internal Medicine; ATTEND Internal Medicine
DX: J18.9 Pneumonia, unspecified organism (principal); J44.1 Chronic obstructive pulmonary disease with (acute) exacerbation; J44.0 Chronic obstructive pulmonary disease with (acute) lower respiratory infection; I13.0 Hypertensive heart and chronic kidney disease with heart failure and stage 1 through stage 4 chronic kidney disease, or unspecified chronic kidney disease; N18.4 Chronic kidney disease, stage 4 (severe); E87.1 Hypo-osmolality and hyponatremia; E87.2 Acidosis; N17.9 Acute kidney failure, unspecified; I50.9 Heart failure, unspecified; K31.819 Angiodysplasia of stomach and duodenum without bleeding; I25.118 Atherosclerotic heart disease of native coronary artery with other forms of angina pectoris; E11.22 Type 2 diabetes mellitus with diabetic chronic kidney disease; E11.65 Type 2 diabetes mellitus with hyperglycemia; K29.70 Gastritis, unspecified, without bleeding; D69.6 Thrombocytopenia, unspecified; K76.1 Chronic passive congestion of liver; D63.8 Anemia in other chronic diseases classified elsewhere; E87.5 Hyperkalemia; I27.20 Pulmonary hypertension, unspecified; Z66 Do not resuscitate; Y95 Nosocomial condition; I08.3 Combined rheumatic disorders of mitral, aortic and tricuspid valves; E78.5 Hyperlipidemia, unspecified; E78.00 Pure hypercholesterolemia, unspecified; G47.00 Insomnia, unspecified; Z90.49 Acquired absence of other specified parts of digestive tract; Z87.11 Personal history of peptic ulcer disease; Z87.440 Personal history of urinary (tract) infections; Z95.5 Presence of coronary angioplasty implant and graft; Z79.4 Long term (current) use of insulin; Z79.82 Long term (current) use of aspirin

== ENCOUNTER 2017-11-21 20:26 | Inpatient (IN) | payer MEDICARE, OTHER ==
[2017-11-21 20:27] VITALS: BMI 24.1
--- NOTE | 2017-11-21 21:00 | ED PDOC ---
Arrival/HPI <Sandoval Pretty - Last Filed: 11/21/17 23:24> - General Historian: Patient (minimally), Other (Paperwork from [facility]) EM Caveat: Altered Mental Status (somnolent/lethargic, barely audible speech with few-word only answers, mostly responding with head nodding and shaking) <Sammy Quarles - Last Filed: 11/22/17 02:19> - General Chief Complaint: Chest Pain Time Seen by Provider: 11/21/17 20:31 - History of Present Illness Narrative History of Present Illness (Text): 11/23/17 22:41 This is an 82 yo F with PMH of HTN, DM, CAD s/p stent, GI AVM with prior GI bleed, CKD, and COPD who represents to [facility] with complaint of chest pain. HPI and ROS limited to information provided by Long Term staff and minimally from patient, as patient is very somnolent/lethargic, only answering in barely audible 1-3 word answers or with head nodding/shaking. Of note, patient was just discharged from [facility] (admitted for CHF/bronchitis) . As per retirement staff, patient earlier complained of midline chest pain, and was given nitroglycerin x1, which resolved the pain. However, later this afternoon, again complained of chest pain, not alleviated with nitro x3, so PMD (Dr. Morataya) was called, and after new complaint of shortness of breath, patient was given IV Lasix 40mg x1 with no improvement, so PMD instructed [facility]entiary staff to call EMS to transport back to hospital. retirement staff additionally report low blood sugar at time of EMS arrival, 59 on fingerstick, so they gave the pt orange juice, but nothing else, because EMS was ready to transport (on arrival, fingerstick was 139). On arrival, patient denies chest pain or shortness of breath, unable to further ellucidate reason for presentation due to minimally verbal/somnolent state. PMH: as above PSH: Right hemicollectomy, Cardiac cath with 1 stent placed Soc Hx: denies smoking, alcohol, and elicit drug use Fam Hx: unable to elicit from patient, as per prior charting no known Fam Hx PMD: Dr. Morataya (Sammy Quarles) Past Medical History - Provider Review Nursing Documentation Reviewed: Yes - Infectious Disease Hx of Infectious Diseases: None - Tetanus Immunization Tetanus Immunization: Unknown - Cardiac Hx Cardiac Disorders: Yes Hx Congestive Heart Failure: Yes Hx Hypertension: Yes - Pulmonary Hx Respiratory Disorders: Yes Hx Chronic Obstructive Pulmonary Disease (COPD): Yes Hx Pneumonia: Yes - Neurological Hx Neurological Disorder: No - HEENT Hx HEENT Disorder: No - Renal Hx Renal Disorder: No - Endocrine/Metabolic Hx Endocrine Disorders: Yes Hx Diabetes Mellitus Type 2: Yes Hx Hypothyroidism: Yes - Hematological/Oncological Hx Blood Disorders: Yes Hx Hepatitis B: Yes Hx Shingles: Yes - Integumentary Hx Dermatological Disorder: Yes Hx Cellulitis: Yes Other/Comment: Hx of R foot infection - Musculoskeletal/Rheumatological Hx Musculoskeletal Disorders: Yes Hx Arthritis: Yes (right leg) - Gastrointestinal Hx Gastrointestinal Disorders: Yes (gi bleed) - Genitourinary/Gynecological Hx Genitourinary Disorders: No - Psychiatric Hx Psychophysiologic Disorder: Yes Hx Anxiety: No Hx Substance Use: No - Surgical History Hx Amputation: No Hx Appendectomy: Yes Hx Cardiac Catheterization: Yes Hx Coronary Stent: Yes Other/Comment: colon sx 2015 , C section x3, appendectomy - Anesthesia Hx Anesthesia: Yes Hx Anesthesia Reactions: No Hx Malignant Hyperthermia: No - Suicidal Assessment Feels Threatened In Home Enviroment: No <Sammy Quarles - Last Filed: 11/22/17 02:19> Family/Social History - Physician Review Nursing Documentation Reviewed: Yes Family/Social History: No Known Family HX Smoking Status: Never Smoked Hx Alcohol Use: No Hx Substance Use: No Hx Substance Use Treatment: No <Sammy Quarles - Last Filed: 11/22/17 02:19> Allergies/Home Meds <Sandoval Pretty - Last Filed: 11/21/17 23:24> <Sammy Quarles - Last Filed: 11/22/17 02:19> Allergies/Adverse Reactions: Allergies shellfish derived Allergy (Verified 11/21/17 20:34) RASH Home Medications: Home Meds Medication Instructions Recorded Confirmed GlipiZIDE [Glucotrol] 10 mg PO DAILY 01/21/15 11/21/17 Furosemide [Lasix] 20 mg PO DAILY 04/14/15 11/21/17 Amlodipine Besylate [Norvasc] 10 mg PO DAILY 08/23/15 11/21/17 Aspirin [Aspirin Chewable] 81 mg PO DAILY 08/23/15 11/21/17 Iron,Carbonyl [Feosol] 325 mg PO DAILY 08/23/15 11/21/17 Isosorbide Mononitrate [Imdur] 60 mg PO DAILY 08/23/15 11/21/17 Multivit-Min/FA/Lycopen/Lutein 1 tab PO DAILY 08/23/15 11/21/17 [Centrum Silver Tablet] Insulin Lispro Mix 75/25 [HumaLOG 20 units SC .BEFOREBREAKFAST 10/22/15 11/21/17 Mix 75/25] Insulin Lispro Mix 75/25 [HumaLOG 20 units SC .BEFOREDINNER 10/22/15 11/21/17 Mix 75/25] Nitroglycerin [Nitrostat SL Tab] 0.3 mg SL PRN PRN 07/27/16 11/21/17 Insulin Lispro [Humalog (Insulin 20 unit SQ ACL 01/25/17 11/21/17 Lispro)] hydrALAZINE [Apresoline] 10 mg PO Q6H PRN 11/21/17 11/21/17 Review of Systems - Review of Systems Systems not reviewed;Unavailable: Altered Mental Status <Sammy Quarles - Last Filed: 11/22/17 02:19> Physical Exam <Sandoval Pretty - Last Filed: 11/21/17 23:24> - Physical Exam Physical Exam Limitations: Altered Mental Status (lethargic/somnolent, arousable but rapidly returns to somnolence) Vital Signs Reviewed: Yes Temperature: Afebrile Blood Pressure: Normal Pulse: Regular Respiratory Rate: Normal Appearance: Positive for: Non-Toxic, Ill-Appearing, Other (Somnolent/lethargic but repeatedly briefly arousable) Pain Distress: None Mental Status: Positive for: Lethargic, other (oriented to self and location, unable to state year, requiredd repeated questioning and re-arousals to obtain location/self orientation answers) - Systems Exam Head: Present: Atraumatic, Normocephalic Pupils: No: Pinpoint Extroacular Muscles: Present: Other (not following commands sufficiently for EOMI assessment, but is able to track to location of stimuli used for re- awakenings repeatedly) Conjunctiva: Present: Normal. No: Injected, Icteric Mouth: Present: Moist Mucous Membranes. No: Dry, Drooling Nose (External): Present: Atraumatic. No: Abrasion, Laceration Nose (Internal): Present: No Active Bleeding. No: Epistaxis Neck: Present: Trachea Midline. No: JVD Respiratory/Chest: Present: Clear to Auscultation (not following commands for deep breathing, but no gross rales/ronchi/wheezes appreciated with baseline respiration). No: Respiratory Distress, Accessory Muscle Use, Wheezes, Rales, Rhonchi Cardiovascular: Present: Regular Rate and Rhythm, Normal S1, S2, Peripheal Pulses Present (+2 radials, +1 dorsalis pedis bilaterally). No: Murmurs, Irregular Rhythm, Tachycardic, Bradycardic Abdomen: Present: Normal Bowel Sounds. No: Tenderness (not answering questions regarding tenderness in abd, but no acute response to palpation), Distention, Guarding Upper Extremity: Present: Normal Inspection, NORMAL PULSES. No: Cyanosis, Edema , Normal ROM (unable to assess, remaining mostly still, minimal spontaneous movements noted), Tenderness, Swelling, Erythema Lower Extremity: Present: NORMAL PULSES. No: Edema, CALF TENDERNESS, Cyanosis, Normal ROM (unable to assess, remaining mostly still, minimal spontaneous movements noted), Swelling, Erythema Neurological: Present: GCS=15 (when awake). No: Speech Normal (speaking few words almost ) Skin: Present: Warm, Dry, Normal Color. No: Rashes Psychiatric: Present: Lethargic. No: Alert (arouable, but rapidly somnolent/ lethargic again), Oriented x 3 (oriented to self and location, but requires repeated prompting to elicit answers for either question, unable to state year but unclear if due to lethargy or unsure) <Sammy Quarles - Last Filed: 11/22/17 02:19> Vital Signs Temp Pulse Pulse Resp BP Pulse Ox 11/22/17 00:32 76 122/68 100 11/21/17 22:31 76 16 129/60 100 11/21/17 21:25 76 11/21/17 20:40 97.5 F L 74 18 126/47 L 98 Medical Decision Making <Sandoval Pretty - Last Filed: 11/21/17 23:24> Reassessment Condition: Re-examined, Unchanged <Sammy Quarles - Last Filed: 11/22/17 02:19> ED Course and Treatment: 11/21/17 23:22 82 year old female presents to the Emergency department for midsternal chest pain. In agreement with resident note, which includes further HPI details. Patient was seen and evaluated with resident, came up with plan and treatment together. (Sandoval Pretty) 11/21/17 22:59 Ddx: Chest pain r/o ACS, r/o PNA given CP/SOB [facility] and now somnolent/lethargic -CXR ordered, reviewed, looks like sub-optimal positioning rather than reduced lung volumes, right costovertebral angle clearly visible, unable to view left behind cardiomegaly, when compared to prior CXR looks unchanged -Labs notable for WBC 14.2, Hgb 8.5 (baseline per prior charting 9-10), trop 0.06 (baseline 0.01-0.03) but in setting of CKD/renal failure, less acutely concerning -EKG sinus with PACs, no ST elevations or depressions, no bundle-branch block appreciated -elevated LFTs, but when compared to labs on discharge yesterday, improved from yesterday -Case discussed with PMD, Dr. Morataya, who requests admission to telemetry for observation and consult Vision Mixer (Dr. Moses). Orders placed, and due to mildly decreased Hgb in setting of lethargy, type and screen and stool occult ordered. Admitted to tele-obs. Patient seen, reviewed, and discussed with attending, Dr. Pretty (Sammy Quarles) - Lab Interpretations Lab Results: 11/21/17 22:29 11/21/17 21:50 Lab Results 11/21/17 22:29: WBC 14.2 H, RBC 2.57 L, Hgb 8.5 L D, Hct 24.0 L, MCV 93.4, MCH 33.1, MCHC 35.4, RDW 13.6, Plt Count 71 L, MPV 11.2 H, Gran % 89.3 H, Lymph % ( Auto) 7.2 L, [place] % (Auto) 3.3, Eos % (Auto) 0.2 L, Baso % (Auto) 0.0, Gran # 12.68 H, Lymph # (Auto) 1.0 L, [place] # (Auto) 0.5, Eos # (Auto) 0.0, Baso # (Auto ) 0.00 11/21/17 21:50: Sodium 135, Potassium 4.4, Chloride 102, Carbon Dioxide 26, Anion Gap 12, BUN 77 H, Creatinine 1.6 H, Est GFR ( Amer) 37, Est GFR ( Non-Af Amer) 31, Random Glucose 137 H, Calcium 7.7 L, Phosphorus 4.1, Magnesium 2.6 H, Total Bilirubin 0.9, AST 95 H D, ALT 143 H, Alkaline Phosphatase 98, Lactate Dehydrogenase 1172 H, Total Creatine Kinase 71, Troponin I 0.06 D, Total Protein 4.7 L, Albumin 2.3 L, Globulin 2.3, Albumin/Globulin Ratio 1.0 L - RAD Interpretation Radiology Orders: 11/21/17 20:54 CHEST PORTABLE [RAD] Stat - PA / LAMP SHADES SUPERVISOR / Resident Statement MD/DO has reviewed & agrees with the documentation as recorded. MD/DO has examined the patient and agrees with the treatment plan. - Scribe Statement The provider has reviewed the documentation as recorded by the Scribe <Sandoval Pretty - Last Filed: 11/21/17 23:24> <Sammy Quarles - Last Filed: 11/22/17 02:19> - Scribe Statement Concepción Dumont. All medical record entries made by the Scribe were at my direction and personally dictated by me. I have reviewed the chart and agree that the record accurately reflects my personal performance of the history, physical exam, medical decision making, and the department course for this patient. I have also personally directed, reviewed, and agree with the discharge instructions and disposition. (Sandoval Prtety) Disposition/Present on Arrival <Sandoval Pretty - Last Filed: 11/21/17 23:24> - Present on Arrival Any Indicators Present on Arrival: Yes History of DVT/PE: No History of Uncontrolled Diabetes: Yes Urinary Catheter: No History of Decub. Ulcer: No History Surgical Site Infection Following: None - Disposition Have Diagnosis and Disposition been Completed?: Yes Disposition Time: 00:32 Patient Plan: Admission, Observation, Telemetry <Sammy Quarles - Last Filed: 11/22/17 02:19> - Disposition Diagnosis: Chest pain, Somnolence Disposition: HOSPITALIZED Condition: GUARDED Discharge Instructions (ExitCare): Chest Pain (ED)
[2017-11-21 22:04] LABS: EOS % 0.2 % (1.5-5.0); GRAN # 12.68 (1.4-6.5); GRAN % 89.3 % (50.0-68.0); HEMOGLOBIN 8.5 g/dL (12.0-16.0); LYMPH % 7.2 % (22.0-35.0); MEAN CELL VOLUME 93.4 fl (80.0-105.0); MEAN CORPUSCULAR HEMOGLOBIN 33.1 pg (25.0-35.0); MEAN CORPUSCULAR HGB CONC 35.4 g/dl (31.0-37.0); MEAN PLATELET VOLUME 11.2 fl (7.0-11.0); MONO # 0.5 (0.1-0.6); MONO % 3.3 % (1.0-6.0); RBC 2.57 10^6/uL (3.5-6.1); RED CELL DISTRIBUTION WIDTH 13.6 % (11.5-14.5); WHITE BLOOD COUNT 14.2 10^3/ul (4.5-11.0)
[2017-11-21 22:17] LABS: ALBUMIN 2.3 g/dL (3.0-4.8); CALCIUM 7.7 mg/dL (8.4-10.5)
[2017-11-21 22:24] LABS: TROPONIN I 0.06 ng/mL
[2017-11-22] MEDS: Pantoprazole 40 mg EC Tab PO SCH (06:01)
[2017-11-22] MEDS ORDERED: Insulin Reg-LOW-Coverage SC SCH (07:30)
[2017-11-22] MEDS: Insulin Reg-MEDIUM-Coverage SC SCH ×3 (08:10→16:44)
--- NOTE | 2017-11-22 08:23 | RAD ---
HISTORY: midline chest pain COMPARISON: 11/12/2017 FINDINGS: LUNGS: No active pulmonary disease. PLEURA: No significant pleural effusion identified, no pneumothorax apparent. CARDIOVASCULAR: Normal. OSSEOUS STRUCTURES: No significant abnormalities. VISUALIZED UPPER ABDOMEN: Normal. OTHER FINDINGS: None. IMPRESSION: No active disease.
--- NOTE | 2017-11-22 09:10 | CARD ---
APPROVED REPORT EKG Measurement Heart [id number] [id number] <Conclusion> Sinus rhythm with premature atrial complexes with junctional escape complexes Cannot rule out Anterior infarct, age undetermined Abnormal ECG
--- NOTE | 2017-11-22 11:19 | CON ---
DATE: 11/22/2017 CARDIOLOGY CONSULTATION HISTORY OF PRESENT ILLNESS: The patient is an 82-year-old woman who presents with recurrence of angina. The patient has documented coronary disease including a stent in her proximal LAD as well as a 50% stenoses in her other coronary distributions. She suffers from hypertension, diabetes mellitus as well as marked anemia. She is on amlodipine for her high blood pressure. The patient has had chronic anemia and she has been DNR for the past year. She complains of angina and still complains of discomfort at this time. SOCIAL HISTORY: The patient does not smoke. REVIEW OF SYSTEMS: Review of systems was reviewed in detail. No dyspnea noted. Other than her angina, no other cardiac symptomatology noted. PHYSICAL EXAMINATION VITAL SIGNS: Stable. NECK: Negative JVD. LUNGS: Without rales. HEART: Reveals S1 and S2. EXTREMITIES: Without edema. EKG shows no new changes. LABORATORY DATA: Troponin is 0.06, hemoglobin is 8.5. Chemistries: BUN and creatinine 77 and 1.6, glucose is 137. IMPRESSION: 1. Recurrent angina including angina at rest. 2. Multivessel coronary artery disease. 3. Renal insufficiency. 4. Prerenal azotemia. 5. Anemia. 6. Diabetes mellitus. 7. Hypertension. 8. Hypercholesterolemia. 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 I have discussed with the patient about the possibility of catheterization given her recurrent angina and her indeterminate troponin. The patient refuses at this time. We will continue on her present medications. We will repeat her CBC today. Geovanni Moses MD
[2017-11-22] MEDS ORDERED: TraMADol/Apap 37.5/325 mg Tab PO PRN (12:23)
[2017-11-22] MEDS ORDERED: Insulin Lispro (humaLOG) MIX 75/25(10 ml) SC SCH ×4 (12:30→12:33)
[2017-11-22] MEDS ORDERED: Insulin Lispro 1 UNITS/0.01 ML SC SCH (12:30)
[2017-11-22] MEDS: Levalbuterol 0.63 MG/3 ML Inhal Soln UD IH SCH ×2 (13:24→21:02)
[2017-11-22] MEDS ORDERED: Dextrose 50% SYRINGE Inj (50 ml) ONE (15:55)
[2017-11-22] MEDS ORDERED: Alum-Mag Hydrox-Simethicone Susp (30 mL) PO PRN (16:50)
--- NOTE | 2017-11-22 17:53 | CON ---
DATE: 11/22/2017 CARDIOLOGY CONSULTATION HISTORY: The patient is an 82-year-old woman who presents with unstable angina. After extensive discussion with the patient and family, the patient is agreeable with a cardiac catheterization to see whether there is a new coronary lesion that might explain her angina and her elevated troponin. They are willing to DNR for 24 hours and what is necessary during her procedure. She actually refuses coronary artery bypass surgery and that I understand. Geovanni Moses MD
[2017-11-22] MEDS: Insulin Reg-HIGH-Coverage SC SCH (21:50)
[2017-11-22] MEDS ORDERED: Insulin Detemir 100 units/ml Vial (Levemir) SC SCH (22:00)
[2017-11-22] MEDS: Insulin Detemir 100 units/ml Vial (Levemir) SC SCH (22:00)
--- NOTE | 2017-11-22 23:50 | HP ---
HISTORY OF PRESENT ILLNESS: Patient is 82 years old, who was recently transferred to [facility] for rehab. Yesterday, I got a call in the afternoon that patient is having shortness of breath and chest pain. She was given three doses of sublingual nitroglycerin with no significant relief. She was given extra dose of Imdur and Lasix and she has no relief from chest pain or shortness of breath, so she was referred to emergency room for further evaluation. She denies any fever or chills. Does complain of cough. No nausea, vomiting, or diarrhea. Complained of bilateral leg pain, knee pain. Currently, her chest pain is better. PAST MEDICAL HISTORY: Significant for; 1. Hypertension. 2. Chronic kidney disease. 3. Chronic anemia. 4. History of status post right colectomy secondary to AVMs and rectal bleeding. 5. Congestive heart failure. 6. Cardiac cirrhosis. 7. Thrombocytopenia. 8. Renal insufficiency. ALLERGIES: SHE IS ALLERGIC TO SHELLFISH. MEDICATIONS AT HOME: She is on nitroglycerin p.r.n. She is on tramadol, aspirin, amlodipine, iron supplementation. She is on insulin 75/25 at 20 units before breakfast and 20 unit before lunch and dinner. She is on glipizide 10 mg daily and Levemir 25 units at bedtime. SOCIAL HISTORY: She is , lives with her at home. Denies smoking, drinking, or alcohol use. PHYSICAL EXAMINATION: GENERAL: She is awake, alert, oriented, communicative. VITAL SIGNS: She is afebrile, pulse 64, respirations 18, blood pressure 116/51. LUNGS: Bilateral fair airflow. No rhonchi or crackle. HEART: S1 and S2 audible. ABDOMEN: Soft, nontender. No rebound. No guarding. NEUROLOGIC: She is awake and alert and able to communicate. EXTREMITIES: Bilateral legs, she has +1 edema. LABORATORY DATA: WBC is 14.2, hemoglobin 8.5, hematocrit 24, platelets is 71. Chemistry: Sodium 135, potassium 4.4, chloride 102, CO2 of 26, BUN 77, creatinine 1.6, blood sugar of 137, calcium is 7.7. AST 95, ALT 143, LDH is 1172. X-ray of chest, no active disease. ASSESSMENT: 1. Chest pain, rule out underlying coronary ischemia. 2. Hypertension. 3. History of angioplasty, two years ago. 4. [id number] renal failure. 5. Hypertension. 6. Insulin-dependent diabetes. 7. Thrombocytopenia. 8. History of gastrointestinal arteriovenous malformations. PLAN: Patient is going to receive one pack RBCs. We will monitor her blood sugar. We will resume her usual medication and we will monitor her blood sugar. Patient is scheduled to have cardiac catheterization in the a.m. Harsh Morataya MD
[2017-11-23] MEDS: Pantoprazole 40 mg EC Tab PO SCH (06:56)
[2017-11-23] MEDS ORDERED: DiphenhydrAMINE 50 mg/ml Inj ONE (07:17)
[2017-11-23] MEDS ORDERED: Famotidine 20mg/50ml 20 MG/50 ML BAG IVPB ONE (07:18)
[2017-11-23] MEDS ORDERED: Iodixanol 320 MG/ML 200 ML BOTTLE IV ONE (07:19)
[2017-11-23] MEDS ORDERED: Lidocaine 2% Inj (20ml) ONE (07:19)
[2017-11-23] MEDS ORDERED: Iohexol 350mgl/ml 50 ML ONE (07:19)
[2017-11-23] MEDS ORDERED: Nitroglycerin 50mg in D5W 50 MG/250 ML BOTTLE IV ONE (07:23)
[2017-11-23] MEDS: Insulin Reg-HIGH-Coverage SC SCH ×5 (07:30→21:08)
[2017-11-23] MEDS ORDERED: Midazolam 2 MG/2 ML VIAL ONE ×2 (07:59→08:28)
[2017-11-23] MEDS: Levalbuterol 0.63 MG/3 ML Inhal Soln UD IH SCH ×4 (08:07→19:43)
[2017-11-23] MEDS ORDERED: Sodium Chloride 0.9% 1,000 ML IV SCH (09:15)
[2017-11-23] MEDS: POLYETHYLENE GLYCOL 3350 17 GM/Dose PACKET PO SCH (10:02)
--- NOTE | 2017-11-23 14:43 | CARDCATH ---
PROCEDURE DATE: 11/23/2017 HISTORY: The patient is an 82-year-old woman who presents with recurrent angina. Her symptoms progressed as chest pain at rest. Her troponins were intermediate; because of this, cardiac catheterization was recommended. PROCEDURE: Left heart catheterization with coronary arteriography and left ventriculogram. The right femoral artery was cannulated with a 6-Trinidadian sheath. There were no complications. I performed moderate sedation which included the presence of an independent trained observer that assisted in monitoring the patient's level of consciousness and physiologic status. After administration of Versed and fentanyl, my intra-service time was 15 minutes. The findings on catheterization revealed a left ventricle that contracted normally. Estimated ejection fraction is 55%. Her coronary anatomy revealed diffuse calcification throughout the coronary tree. The RCA was a dominant vessel and revealed diffuse atherosclerosis. There was a 40%-50% stenosis in the midportion. The left main artery was unremarkable. The LAD revealed diffuse atherosclerosis with a 50% stenosis in the mid LAD. The stent that was placed in 2014 was patent. There is a 60%-70% stenosis in the proximal portion of the small diagonal vessel. The circumflex artery revealed diffuse atherosclerosis without critical lesions. Angio-Seal was used to close the femoral artery site. The patient tolerated the procedure well. In summary, the procedure revealed a 50% stenosis in the mid RCA, a 50% stenosis in the mid LAD, a 60%-70% stenosis in the proximal portion of the small diagonal vessel as well as a patent stent in the mid LAD. LV function is normal. Given these findings, the chest pain is not of cardiac origin. There is no change in her coronary anatomy. We will continue medical therapy and look for a noncardiac cause of her chest pain. Geovanni Moses MD
--- NOTE | 2017-11-23 16:07 | PN ---
DATE: 11/23/2017 SUBJECTIVE: Patient is 82 years old female who came with chest pain, diaphoresis, shortness of breath, underwent cardiac cath, was found to have no significant blockage. Finding was same as a year and half ago. No needed. PHYSICAL EXAMINATION: GENERAL: She is awake, alert, oriented, and communicative. VITAL SIGNS: She is afebrile. Pulse 59, respirations 19, blood pressure 140/51. LUNGS: Bilateral clear airflow. No rhonchi or crackles. HEART: S1, S2 audible. ABDOMEN: Soft, nontender. No rebound. No guarding. NEUROLOGIC: She is awake, alert, oriented, and communicative. LABORATORY DATA: Blood sugar is 189. ASSESSMENT: 1. Chest pain, secondary to coronary ischemia, could be gastroparesis. 2. Hypertension. 3. History of coronary artery disease, status post right coronary artery angioplasty. 4. Insulin-dependent diabetes. 5. Chronic anemia secondary to arteriovenous malformation. She has multiple endoscopy, was found to have . 6. Gastroparesis. 7. Cardiac cirrhosis. 8. Thrombocytopenia. PLAN: I will readjust her insulin. She is clinically stable to be discharged back to [facility]. Harsh Morataya MD
[2017-11-23] MEDS: Insulin Detemir 100 units/ml Vial (Levemir) SC SCH (21:11)
[2017-11-24] MEDS: Pantoprazole 40 mg EC Tab PO SCH (05:12)
[2017-11-24] MEDS: Insulin Reg-HIGH-Coverage SC SCH ×3 (08:11→16:55)
[2017-11-24] MEDS: Levalbuterol 0.63 MG/3 ML Inhal Soln UD IH SCH ×2 (08:14→13:52)
[2017-11-24] MEDS: POLYETHYLENE GLYCOL 3350 17 GM/Dose PACKET PO SCH ×2 (10:14→10:20)
[2017-11-24 14:58] VITALS: RESP 18; TEMP 98
[2017-11-24 17:45] VITALS: BP 135/92; PULSE 79; O2SAT 100
--- NOTE | 2017-11-26 09:00 | DS ---
HISTORY OF PRESENT ILLNESS: The patient is 82 years old, seen and examined, who came in with chest pain, had cardiac cath done. There is no significant occlusive disease. Her last stent is patent. Denies any chest pain. Complained of feeling short of breath and weak. Had bowel movement earlier. PHYSICAL EXAMINATION: VITAL SIGNS: She is afebrile, pulse 62, respirations 20, blood pressure 129/48. LUNGS: Bilateral fair airflow. No rhonchi or crackle. HEART: S1 and S2 audible. ABDOMEN: Soft. Nontender. No rebound. No guarding. NEUROLOGICAL: She is awake, alert, oriented, communicative. LABORATORY EXAM: is 146. ASSESSMENT: 1. Chest pain. No evidence of acute coronary ischemia, status post cardiac catheterization unremarkable. 2. Hypertension. 3. Cardiac cirrhosis. 4. Thrombocytopenia. 5. Insulin-dependent diabetes. 6. Hyperlipidemia. 7. History of gastrointestinal bleed secondary to arteriovenous malformations, status post right partial colectomy. PLAN: The patient is clinically stable. She will be sent back for subacute rehab to [facility]. She will resume her medications. I will follow up. Harsh Morataya MD
== END 2017-11-24 18:03 | DRG 74 ==
LOC: ED 20:26 → ERH 23:17 → 2RSO 11-22 01:11 → OBSVTOIN 11-22 12:51
PROVIDERS: ADMIT Internal Medicine; ATTEND Internal Medicine
PROC: 30233N1 Transfusion of Nonautologous Red Blood Cells into Peripheral Vein, Percutaneous Approach (ICD-10-PCS; 2017-11-22)
PROC: 4A023N7 Measurement of Cardiac Sampling and Pressure, Left Heart, Percutaneous Approach (ICD-10-PCS; principal; 2017-11-23)
PROC: B2151ZZ Fluoroscopy of Left Heart using Low Osmolar Contrast (ICD-10-PCS; 2017-11-23)
PROC: B2111ZZ Fluoroscopy of Multiple Coronary Arteries using Low Osmolar Contrast (ICD-10-PCS; 2017-11-23)
DX: E11.43 Type 2 diabetes mellitus with diabetic autonomic (poly)neuropathy (principal); I13.0 Hypertensive heart and chronic kidney disease with heart failure and stage 1 through stage 4 chronic kidney disease, or unspecified chronic kidney disease; N17.9 Acute kidney failure, unspecified; I25.110 Atherosclerotic heart disease of native coronary artery with unstable angina pectoris; K31.84 Gastroparesis; I50.9 Heart failure, unspecified; K76.1 Chronic passive congestion of liver; D69.6 Thrombocytopenia, unspecified; D64.9 Anemia, unspecified; E11.22 Type 2 diabetes mellitus with diabetic chronic kidney disease; E78.00 Pure hypercholesterolemia, unspecified; E78.5 Hyperlipidemia, unspecified; J44.9 Chronic obstructive pulmonary disease, unspecified; E03.9 Hypothyroidism, unspecified; N18.9 Chronic kidney disease, unspecified; Z66 Do not resuscitate; K55.20 Angiodysplasia of colon without hemorrhage; Z90.49 Acquired absence of other specified parts of digestive tract; Z79.4 Long term (current) use of insulin; Z79.82 Long term (current) use of aspirin; Z95.5 Presence of coronary angioplasty implant and graft; Z87.01 Personal history of pneumonia (recurrent)

== ENCOUNTER 2017-11-30 07:24 | Inpatient (IN) | payer MEDICARE, OTHER ==
--- NOTE | 2017-11-30 08:18 | ED PDOC ---
Arrival/HPI - General Historian: Patient - History of Present Illness Time/Duration: > month Symptom Course: Worsening Quality: Unable to Describe - General Chief Complaint: Medical Clearance Time Seen by Provider: 11/30/17 07:40 - History of Present Illness Narrative History of Present Illness (Text): 11/30/17 08:06 Pt is an 82 yo F with PMH of cirrhosis, anemia, CHF, HTN, DM, CAD (with 1 stent) , GI AVM and past GI bleed, CKD, and COPD presents to ED as instructed by her PMD for symptomatic paracentesis. Patient complains of generalized abdominal pain, distension, and SOB. Patient is AOx3 on exam. Patient denies melena, hematochezia, skin changes, CP, n/v/d, fever, chills, OSPINA, or dizziness. PMD: Gregg Mckeon) Past Medical History - Provider Review Nursing Documentation Reviewed: Yes - Infectious Disease Hx of Infectious Diseases: None - Tetanus Immunization Tetanus Immunization: Unknown - Cardiac Hx Cardiac Disorders: Yes Hx Congestive Heart Failure: Yes Hx Hypertension: Yes - Pulmonary Hx Respiratory Disorders: Yes Hx Chronic Obstructive Pulmonary Disease (COPD): Yes Hx Pneumonia: Yes - Neurological Hx Neurological Disorder: No - HEENT Hx HEENT Disorder: No - Renal Hx Renal Disorder: No - Endocrine/Metabolic Hx Endocrine Disorders: Yes Hx Diabetes Mellitus Type 2: Yes Hx Hypothyroidism: Yes - Hematological/Oncological Hx Blood Disorders: Yes Hx Hepatitis B: Yes Hx Shingles: Yes - Integumentary Hx Dermatological Disorder: Yes Hx Cellulitis: Yes Other/Comment: Hx of R foot infection - Musculoskeletal/Rheumatological Hx Musculoskeletal Disorders: Yes Hx Arthritis: Yes (right leg) - Gastrointestinal Hx Gastrointestinal Disorders: Yes (gi bleed) - Genitourinary/Gynecological Hx Genitourinary Disorders: No - Psychiatric Hx Psychophysiologic Disorder: Yes Hx Anxiety: No Hx Substance Use: No - Surgical History Hx Amputation: No Hx Appendectomy: Yes Hx Cardiac Catheterization: Yes Hx Coronary Stent: Yes Other/Comment: colon sx 2015 , C section x3, appendectomy - Anesthesia Hx Anesthesia: Yes Hx Anesthesia Reactions: No Hx Malignant Hyperthermia: No - Suicidal Assessment Feels Threatened In Home Enviroment: No Family/Social History - Physician Review Nursing Documentation Reviewed: Yes Family/Social History: No Known Family HX Smoking Status: Never Smoked Hx Alcohol Use: No Hx Substance Use: No Hx Substance Use Treatment: No Allergies/Home Meds Allergies/Adverse Reactions: Allergies shellfish derived Allergy (Verified 11/21/17 20:34) RASH Home Medications: Home Meds Medication Instructions Recorded Confirmed GlipiZIDE [Glucotrol] 10 mg PO DAILY 01/21/15 11/30/17 Furosemide [Lasix] 40 mg PO DAILY 04/14/15 11/30/17 Amlodipine Besylate [Norvasc] 10 mg PO DAILY 08/23/15 11/30/17 Aspirin [Aspirin Chewable] 81 mg PO DAILY 08/23/15 11/30/17 Iron,Carbonyl [Feosol] 325 mg PO DAILY 08/23/15 11/30/17 Isosorbide Mononitrate [Imdur] 60 mg PO DAILY 08/23/15 11/30/17 Multivit-Min/FA/Lycopen/Lutein 1 tab PO DAILY 08/23/15 11/30/17 [Centrum Silver Tablet] Insulin Lispro Mix 75/25 [HumaLOG 20 units SC .BEFOREDINNER 10/22/15 11/30/17 Mix 75/25] Nitroglycerin [Nitrostat SL Tab] 0.3 mg SL PRN PRN 07/27/16 11/30/17 Insulin Lispro [Humalog (Insulin 20 unit SQ ACL 01/25/17 11/30/17 Lispro)] hydrALAZINE [Apresoline] 10 mg PO Q6H PRN 11/21/17 11/30/17 Review of Systems - Physician Review All systems were reviewed & negative as marked: Yes - Review of Systems Constitutional: Normal Eyes: Normal ENT: Normal Respiratory: Normal Cardiovascular: Normal Gastrointestinal: Abdominal Pain, Other (abdominal distension). absent: Constipation, Diarrhea, Nausea, Vomiting, Hematochezia, Hematemesis Genitourinary Female: Normal Musculoskeletal: Normal Skin: Normal Neurological: Normal Endocrine: Normal Hemo/Lymphatic: Normal Psychiatric: Normal Physical Exam Vital Signs Reviewed: Yes Temperature: Afebrile Blood Pressure: Normal Pulse: Regular Respiratory Rate: Normal Appearance: Positive for: Non-Toxic Pain Distress: None Mental Status: Positive for: Alert and Oriented X 3 - Systems Exam Head: Present: Atraumatic, Normocephalic Pupils: Present: PERRL Extroacular Muscles: Present: EOMI Conjunctiva: Present: Normal Mouth: Present: Moist Mucous Membranes Neck: Present: Normal Range of Motion Respiratory/Chest: Present: Clear to Auscultation, Good Air Exchange. No: Respiratory Distress, Accessory Muscle Use Cardiovascular: Present: Regular Rate and Rhythm, Normal S1, S2. No: Murmurs Abdomen: Present: Tenderness (generalized), Distention, Normal Bowel Sounds, Other (No caput medusa). No: Peritoneal Signs, Rebound, Guarding Back: Present: Normal Inspection Upper Extremity: Present: Normal Inspection. No: Cyanosis, Edema Lower Extremity: Present: Normal Inspection. No: Edema Neurological: Present: GCS=15, CN II-XII Intact, Speech Normal Skin: Present: Warm, Dry, Normal Color, Other (various ecchymotic lesions on both upper extremities. No spider angiomas or palmar erythema noted.). No: Rashes Psychiatric: Present: Alert, Oriented x 3, Normal Insight, Normal Concentration Vital Signs Temp Pulse Resp BP Pulse Ox 11/30/17 07:37 98.1 F 77 18 150/61 95 Medical Decision Making ED Course and Treatment: 11/30/17 08:19 82 yo F presents to ED for therapeutic paracentesis. Plan: - CBC, CMP - Coags - Liver Profile - Ammonia - Lipase - UA - DNR - Reassess and disposition 11/30/17 09:09 Potassium 3.0, repleted with PO KCl. 11/30/17 10:[address] Morataya, who agrees with plan and accepts patient under her service. Patient admitted to med/surg. Dr. Morataya requests Dr. Geovanni Fitch on consult. (Gregg Florez) 11/30/17 08:59 Patient Seen With Resident: In agreement with resident note which contains more details about the patient. Patient was seen and evaluated with resident. Came up with plan and treatment together.. 11/30/17 14:29 pt seen with resident sent in for therapeutic paracentesis. abd soft distended no ttp. sbp less likely bedside us shows large volume ascites. dr morataya bedside accpets case. (Ed José) - Lab Interpretations Lab Results: 11/30/17 07:51 11/30/17 08:30 Lab Results 11/30/17 08:30: Ammonia 18 11/30/17 08:30: Sodium 133, Potassium 3.0 L, Chloride 95 L, Carbon Dioxide 31, Anion Gap 11, BUN 35 H, Creatinine 1.6 H, Est GFR ( Amer) 37, Est GFR ( Non-Af Amer) 31, Random Glucose 134 H, Calcium 7.5 L, Magnesium 2.1, Total Bilirubin 1.0, Direct Bilirubin 0.3, AST 68 H D, ALT 95 H, Alkaline Phosphatase 133 H D, Total Protein 5.0 L, Albumin 2.4 L, Globulin 2.5, Albumin/Globulin Ratio 1.0 L, Lipase 221 11/30/17 08:20: Urine Color Yellow, Urine Appearance Clear, Urine pH 6.0, Ur Specific [place] 1.010, Urine Protein Negative, Urine Glucose (UA) Negative, Urine Ketones Negative, Urine Blood Trace-intact H, Urine Nitrate Negative, Urine Bilirubin Negative, Urine Urobilinogen 0.2, Ur Leukocyte Esterase Trace H , Urine RBC 1 - 3, Urine WBC 2 - 5, Ur Epithelial Cells 3 - 4, Urine Bacteria Few 11/30/17 07:51: PT 13.9 H, INR 1.20 H, APTT 27.3 11/30/17 07:51: WBC 5.9 D, RBC 3.10 L, Hgb 10.3 L, Hct 29.7 L, MCV 95.8, MCH 33.2, MCHC 34.7, RDW 14.8 H, Plt Count 51 L, MPV 12.2 H, Gran % 73.4 H, Lymph % (Auto) 12.0 L, [facility] % (Auto) 11.9 H, Eos % (Auto) 2.5, Baso % (Auto) 0.2, Gran # 4.33, Lymph # (Auto) 0.7 L, [facility] # (Auto) 0.7 H, Eos # (Auto) 0.2, Baso # ( Auto) 0.01 - RAD Interpretation Radiology Orders: 11/30/17 09:25 PARACENTESIS [US] Stat - Medication Orders Current Medication Orders: Acetaminophen (Tylenol 325mg Tab) 650 mg PO Q6H PRN PRN Reason: Pain, Mild (1-3) Amlodipine Besylate (Norvasc) 10 mg PO DAILY JAK Last Admin: 11/30/17 13:04 Dose: 10 mg MAR Blood Pressure Document 11/30/17 13:04 JA (Rec: 11/30/17 13:04 [facility] [id number]) Blood Pressure Blood Pressure (100/60-150/90) 128/70 Aspirin (Aspirin Chewable) 81 mg PO DAILY [facility] Last Admin: 11/30/17 12:53 Dose: 81 mg Glipizide (Glucotrol) 10 mg PO DAILY [facility] Last Admin: 11/30/17 12:53 Dose: 10 mg Insulin Detemir (Levemir) 25 unit SC HS JAK Insulin Human Lispro (Humalog) 20 units SC ACL [facility] Last Admin: 11/30/17 12:59 Dose: 20 units MAR Blood Glucose Document 11/30/17 12:59 TAYLOR (Rec: 11/30/17 13:00 [facility] [place] [id number] Blood Glucose Finger Stick Blood Glucose (70-120) 118 Subcutaneous Administrations Document 11/30/17 12:59 TAYLOR (Rec: 11/30/17 13:00 [facility] [id number]) Injection Site MAR Injection Site Left Arm Charges for Administration # of Subcutaneous Administrations 1 Insulin Lispro Protam/Lispro Human (Humalog Mix 75/25) 20 units SC ACD [facility] Isosorbide Mononitrate (Imdur) 60 mg PO DAILY [facility] Last Admin: 11/30/17 12:53 Dose: 60 mg Levalbuterol HCl (Xopenex) 0.63 mg IH TIDRESP [facility] Last Admin: 11/30/17 13:16 Dose: Not Given Non-Admin Reason: Patient in OR/Vascular Discontinued Medications Potassium Chloride (K-Dur 20 Meq Er Tab) 40 meq PO STAT STA Stop: 11/30/17 10:21 Last Admin: 11/30/17 10:47 Dose: 40 meq Disposition/Present on Arrival - Present on Arrival Any Indicators Present on Arrival: No History of DVT/PE: No History of Uncontrolled Diabetes: Yes Urinary Catheter: No History of Decub. Ulcer: No History Surgical Site Infection Following: None - Disposition Have Diagnosis and Disposition been Completed?: Yes Disposition Time: 11:02 Patient Plan: Admission - Disposition Diagnosis: Ascites Disposition: HOSPITALIZED Patient Problems: Current Active Problems Problem Status Onset Ascites Acute Condition: STABLE
[2017-11-30 08:33] LABS: BASO # 0.01 K/mm3 (0.0-2.0); BASO % 0.2 % (0.0-3.0); EOS # 0.2 (0.0-0.7); EOS % 2.5 % (1.5-5.0); GRAN # 4.33 (1.4-6.5); GRAN % 73.4 % (50.0-68.0); HEMOGLOBIN 10.3 g/dL (12.0-16.0); LYMPH # 0.7 (1.2-3.4); MEAN CELL VOLUME 95.8 fl (80.0-105.0); MEAN CORPUSCULAR HEMOGLOBIN 33.2 pg (25.0-35.0); MEAN CORPUSCULAR HGB CONC 34.7 g/dl (31.0-37.0); MEAN PLATELET VOLUME 12.2 fl (7.0-11.0); MONO # 0.7 (0.1-0.6); MONO % 11.9 % (1.0-6.0); RBC 3.1 10^6/uL (3.5-6.1); RED CELL DISTRIBUTION WIDTH 14.8 % (11.5-14.5); WHITE BLOOD COUNT 5.9 10^3/ul (4.5-11.0)
[2017-11-30 08:34] LABS: URINE BILIRUBIN NEGATIVE (NEGATIVE); URINE BLOOD TRACE-INTACT (NEGATIVE); URINE GLUCOSE (UA) NEGATIVE (NEGATIVE); URINE LEUKOCYTE ESTERASE TRACE Leu/uL (NEGATIVE); URINE PROTEIN NEGATIVE mg/dL (<30 mg/dL); URINE UROBILINOGEN 0.2 E.U./dL (<1 E.U./dL)
[2017-11-30 08:35] LABS: URINE APPEARANCE CLEAR (CLEAR); URINE COLOR YELLOW (YELLOW)
[2017-11-30 08:43] LABS: INR 1.2 (0.93-1.08); PARTIAL THROMBOPLASTIN TIME 27.3 Seconds (25.1-36.5); PROTHROMBIN TIME 13.9 SECONDS (9.4-12.5)
[2017-11-30 08:50] LABS: URINE BACTERIA FEW (NEG)
[2017-11-30 10:18] LABS: ALBUMIN 2.4 g/dL (3.0-4.8); BILIRUBIN,DIRECT 0.3 mg/dL (0.0-0.4); CALCIUM 7.5 mg/dL (8.4-10.5)
[2017-11-30] MEDS ORDERED: Potassium Chloride 20 mEq ER Tab PO STA (10:20)
[2017-11-30] MEDS: Insulin Lispro 1 UNITS/0.01 ML SC SCH (12:59)
[2017-11-30] MEDS: Levalbuterol 0.63 MG/3 ML Inhal Soln UD IH SCH ×2 (13:16→21:09)
[2017-11-30 13:38] VITALS: BMI 29.7
[2017-11-30 14:47] LABS: BODY FLUID TYPE PERITONEAL/ASCITES
[2017-11-30 15:45] LABS: BF GROSS APPEARANCE CLOUDY (CLEAR)
[2017-11-30 15:46] LABS: BODY FLUID TOTAL COUNT 100 (0-0); BODY FLUID WBC 41.3 /uL (0.0-300.0)
[2017-11-30] MEDS ORDERED: Insulin Lispro (humaLOG) MIX 75/25(10 ml) SC SCH (16:30)
--- NOTE | 2017-11-30 17:49 | US ---
PROCEDURE: Ultrasound guided paracentesis. HISTORY: Cardiogenic cirrhosis. Ascites with abdominal pain and distension. Needs paracentesis PHYSICIAN(S): Geovanni Fitch MD. TECHNIQUE: The relative risks and indications for the procedure were explained to the patient and informed written consent obtained. Sonography of the abdomen was performed in a supine position. This revealed a moderate amount of non-loculated ascites, greatest in the right lower quadrant. A puncture site was selected and the area was prepped and draped in the usual sterile fashion. 1% Xylocaine was used to anesthetize the skin and soft tissues. A 7 Armenian paracentesis catheter was trocared into the right lower quadrantand 3400 cc of chylous white fluid aspirated. The appropriate labs were sent. IMPRESSION: Ultrasound-guided paracentesis in the right lower quadrant. 3400 cc of fluid were aspirated. Labs were sent
[2017-11-30] MEDS ORDERED: Barium Sulfate Susp 2.1% w/v, 2.0% w/w 450 mL Bottle PO ONE (20:19)
[2017-11-30] MEDS ORDERED: Insulin Detemir 100 units/ml Vial (Levemir) SC SCH (22:00)
[2017-12-01] MEDS: Pantoprazole 40 mg EC Tab PO SCH (05:40)
--- NOTE | 2017-12-01 06:25 | HP ---
HISTORY OF PRESENT ILLNESS: The patient is an 82-year-old who was seen in [facility] two to three days ago, she was complaining of abdominal distension, bilateral leg swelling. I started her on double dose of Lasix 40 mg twice a day, metolazone 2.5 daily and after 2 days there was no significant relief, so she was brought in this morning for further evaluation. Abdominal sonogram showed ascitic fluid. Dr. Geovanni Fitch was called and patient had paracentesis done and she is being admitted for further observation. Patient complained of chest soreness because of pressure from the belly, increasing girth of belly. She also complained of shortness of breath also complained of bilateral leg edema. Patient was recently admitted for chest pain, had cardiac cath done. There was no evidence of critical occlusion. Her old stent was patent. PAST MEDICAL HISTORY: Complicated including; 1. Insulin-dependent diabetes. 2. Chronic kidney disease. 3. History of cardiac cirrhosis. 4. Thrombocytopenia. 5. History of GI bleed in the past and patient has Dieulafoy's lesion. 6. History of multiple episode of lower GI bleed and had multiple AVMs in her cecal area and underwent partial right hemicolectomy. ALLERGIES: SHE IS ALLERGIC TO SHELLFISH DERIVATIVE. MEDICATIONS AT HOME: In the nursing was as per MAR. SOCIAL HISTORY: She is second time. She has grown up children. Denies smoking or drinking. PHYSICAL EXAMINATION: GENERAL: She is awake and alert, able to communicate. VITAL SIGNS: She is afebrile, pulse 84, respirations 18, blood pressure 117/53. LUNGS: Bilateral diffusely decreased breath sounds. HEART: S1, S2 audible. ABDOMEN: Soft, nontender. No rebound. No guarding. NEUROLOGICAL: Patient is awake and alert, able to communicate. LABORATORY EXAM: WBC is 5.9, hemoglobin 10.3, hematocrit 29.7, platelet of 51. PT 13.9, INR 1.20. Chemistry: Sodium 133, potassium 3, chloride 95, CO2 of 13, BUN 35, creatinine 1.6. Blood sugar of 118. ASSESSMENT AND PLAN: Abdominal distension secondary to ascites. Patient had paracentesis done, 3400 mL of milky fluid was drained. We will start patient on her current medication. We will follow up her blood sugar and start her on intravenous fluids; since her arrival, intake is very poor; get Dr. Arizmendi for consult to evaluate for ascites and follow up her electrolyte in a.m. and monitor blood sugar and hold her regular insulin . Harsh Morataya MD
[2017-12-01 06:33] LABS: BASO # 0.01 K/mm3 (0.0-2.0); BASO % 0.2 % (0.0-3.0); EOS # 0.2 (0.0-0.7); EOS % 3.9 % (1.5-5.0); GRAN # 2.8 (1.4-6.5); GRAN % 60.8 % (50.0-68.0); HEMOGLOBIN 9.7 g/dL (12.0-16.0); LYMPH # 1.1 (1.2-3.4); MEAN CELL VOLUME 95.9 fl (80.0-105.0); MEAN CORPUSCULAR HEMOGLOBIN 32.8 pg (25.0-35.0); MEAN CORPUSCULAR HGB CONC 34.2 g/dl (31.0-37.0); MEAN PLATELET VOLUME 11.5 fl (7.0-11.0); MONO # 0.6 (0.1-0.6); MONO % 12.1 % (1.0-6.0); RBC 2.96 10^6/uL (3.5-6.1); RED CELL DISTRIBUTION WIDTH 14.9 % (11.5-14.5); WHITE BLOOD COUNT 4.6 10^3/ul (4.5-11.0)
[2017-12-01 06:41] LABS: ALB/GLOB RATIO 0.9 (1.1-1.8); ALBUMIN 2.2 g/dL (3.0-4.8); CALCIUM 7.4 mg/dL (8.4-10.5)
[2017-12-01] MEDS: Levalbuterol 0.63 MG/3 ML Inhal Soln UD IH SCH ×3 (08:12→20:15)
[2017-12-01] MEDS: Nystatin 100,000 Units/gm Topical Pow(15 gm) TOP SCH ×2 (10:07→17:22)
[2017-12-01] MEDS: Insulin Lispro 1 UNITS/0.01 ML SC SCH (11:47)
--- NOTE | 2017-12-01 13:23 | CT ---
PROCEDURE: CT Chest without contrast HISTORY: Shortness of breath COMPARISON: 11/05/2017 TECHNIQUE: Contiguous axial images were obtained through the chest without intravenous contrast enhancement. Sagittal and coronal reconstructions were performed. Radiation dose (DLP): 235.71 mGy-cm. This CT exam was performed using one or more of the following dose reduction techniques: Automated exposure control, adjustment of the mA and/or kV according to patient size, and/or use of iterative reconstruction technique. FINDINGS: LUNGS: Interval improvement in multifocal infiltrates. Resolution of right pleural effusion. Decrease MEDIASTINUM: Left pleural effusion Cardiomegaly. No evidence of acute, significant cardiovascular disease. Main pulmonary artery unremarkable. No vascular congestion. No lymphadenopathy. PLEURA: Small residual right pleural BONES: No fracture. No destructive lesion. UPPER ABDOMEN: New intra-abdominal ascites incompletely visualized. OTHER FINDINGS: None. IMPRESSION: Interval improvement in multifocal infiltrates. Residual left lower lobe subsegmental infiltrate. Resolution right pleural effusion. Small left pleural effusion
--- NOTE | 2017-12-01 13:31 | CT ---
PROCEDURE: CT Abdomen and Pelvis with contrast HISTORY: Ascites. Relevant interventional procedure(s): November 30, 2017. Ultrasound-guided paracentesis right lower quadrant with removal of 3.4 L of fluid. COMPARISON: 01/24/2017 CT abdomen and pelvis. TECHNIQUE: Contrast dose: Oral contrast only. Radiation dose: Total exam DLP = 509.13 mGy-cm. This CT exam was performed using one or more of the following dose reduction techniques: Automated exposure control, adjustment of the mA and/or kV according to patient size, and/or use of iterative reconstruction technique. FINDINGS: LOWER THORAX: Small partially loculated effusion pleural effusion. LIVER: Cirrhotic liver. No focal abnormalities on this unenhanced study. GALLBLADDER AND BILE DUCTS: Cholelithiasis without CT evidence of acute cholecystitis. PANCREAS: Unremarkable.Tech tech colo thickening No gross lesion or ductal dilatation. SPLEEN: Unremarkable. ADRENALS: Unremarkable. No mass. KIDNEYS AND URETERS: Unremarkable. No hydronephrosis. No solid mass. VASCULATURE: Unremarkable. No aortic aneurysm. BOWEL: Unremarkable. No obstruction. No gross mural thickening. APPENDIX: Normal appendix. PERITONEUM: Moderate volume intra-abdominal and pelvic ascites which appears to be uncomplicated. LYMPH NODES: Unremarkable. No enlarged lymph nodes. BLADDER: Unremarkable. REPRODUCTIVE: Unremarkable. BONES: No acute fracture. OTHER FINDINGS: Diffuse subcutaneous edema and anasarca. IMPRESSION: Moderate volume intra-abdominal ascites status post recent paracentesis with removal of 3.4 L of fluid. Cirrhotic appearing liver without focal abnormality. Diffuse subcutaneous edema/anasarca. Cholelithiasis without CT evidence of acute cholecystitis. Similar findings identified previously.
[2017-12-01] MEDS: Insulin Lispro (humaLOG) MEDIUM Coverage SC SCH ×2 (16:46→21:24)
[2017-12-01] MEDS ORDERED: Morphine 2 mg/ml ISec IVP STA (17:57)
--- NOTE | 2017-12-01 18:06 | CP.PCM.CON ---
<Ryan Ambrosio - Last Filed: 12/02/17 08:34> History of Present Illness - History of Present Illness History of Present Illness: General Surgery Note for Dr. Joiner Reason for consult: abdominal pain, ascites 82 F with PMH that includes cirrhosis, anemia, CHF, HTN, DM, CAD with stent, GI AVM, past GI bleed, CKD, and COPD presents to [facility] for abdominal pain and ascites. Patient was instructed by her PMD to come to ED. Patient was at [facility] after being discharged last week from [facility]. Patient has been complaining of abdominal pain and distention. She came to ED and has paracentesis performed which 3400 cc of ascitic fluid was removed. She rates pain as moderate. SHe describes it as constant and dull located diffusely in abdomen. Denies any aggravating or alleviating factors. Denies fever/chills, cp, SOB, nausea/ vomiting, diarrhea, melena, hematochezia. PMH: cirrhosis, anemia, CHF, HTN, DM, CAD with stent, GI AVM, past GI bleed, CKD , COPD Meds: As per EMR Allergy: Shellfish PSH: right hemicolectomy, cardiac cath FH: HTN, DM Review of Systems - Review of Systems All systems: reviewed and no additional remarkable complaints except (as per HPI ) Past Patient History - Infectious Disease Hx of Infectious Diseases: None - Tetanus Immunizations Tetanus Immunization: Unknown - Past Social History Smoking Status: Never Smoked - CARDIAC Hx Cardiac Disorders: Yes Hx Angina: No Hx Circulatory Problems: Yes Hx Congestive Heart Failure: Yes - PULMONARY Hx Respiratory Disorders: Yes Hx Asthma: No Hx Chronic Obstructive Pulmonary Disease (COPD): Yes - NEUROLOGICAL Hx Neurological Disorder: No Hx Alzheimer's Disease: No - HEENT Hx HEENT Problems: No - RENAL Hx Chronic Kidney Disease: No - ENDOCRINE/METABOLIC Hx Diabetes Mellitus Type 2: Yes - HEMATOLOGICAL/ONCOLOGICAL Hx Blood Disorders: Yes Hx Anemia: Yes - INTEGUMENTARY Hx Dermatological Problems: Yes Hx Cellulitis: Yes Other/Comment: Hx of R foot infection - MUSCULOSKELETAL/RHEUMATOLOGICAL Hx Falls: Yes Hx Spinal Stenosis: Yes - GASTROINTESTINAL Hx Gastrointestinal Disorders: Yes - GENITOURINARY/GYNECOLOGICAL Hx Urinary Tract Infection: Yes - PSYCHIATRIC Hx Psychophysiologic Disorder: No Hx Anxiety: No Hx Bipolar Disorder: No Hx Emotional Abuse: No Hx Hallucinations: No Hx Panic Symptoms: No - SURGICAL HISTORY Hx Surgeries: Yes - ANESTHESIA Hx Anesthesia: Yes Hx Anesthesia Reactions: No Hx Malignant Hyperthermia: No Meds Allergies/Adverse Reactions: Allergies Allergy/AdvReac Type Severity Reaction Status Date / Time shellfish derived Allergy RASH Verified 11/21/17 20:34 - Medications Medications: Current Medications Acetaminophen (Tylenol 325mg Tab) 650 mg PO Q6H PRN PRN Reason: Pain, Mild (1-3) Amlodipine Besylate (Norvasc) 10 mg PO DAILY [facility] Last Admin: 12/01/17 10:05 Dose: 10 mg Aspirin (Aspirin Chewable) 81 mg PO DAILY [facility] Last Admin: 12/01/17 10:06 Dose: 81 mg Potassium Chloride (Potassium Chloride 10 Meq/100 Ml) 10 meq in 100 mls @ 50 mls/hr IVPB Q2H [facility] Stop: 12/01/17 21:59 Insulin Detemir (Levemir) 25 unit SC HS [facility] Last Admin: 11/30/17 22:37 Dose: Not Given Insulin Human Lispro (Humalog Med) 0 units SC ACHS [facility] PRN Reason: Protocol Last Admin: 12/01/17 16:46 Dose: 3 unit Isosorbide Mononitrate (Imdur) 60 mg PO DAILY [facility] Last Admin: 12/01/17 10:06 Dose: 60 mg Levalbuterol HCl (Xopenex) 0.63 mg IH TIDRESP [facility] Last Admin: 12/01/17 13:40 Dose: 0.63 mg Nystatin (Nystop Topical Powder) 0 gm TOP BID [facility] Last Admin: 12/01/17 17:22 Dose: 1 appful Ondansetron HCl (Zofran Inj) 4 mg IVP Q6H PRN PRN Reason: Nausea/Vomiting Pantoprazole Sodium (Protonix Ec Tab) 40 mg PO 0630 [facility] Last Admin: 12/01/17 05:40 Dose: 40 mg Physical Exam - Constitutional Appears: No Acute Distress - Head Exam Head Exam: ATRAUMATIC, NORMOCEPHALIC - Eye Exam Eye Exam: EOMI, Normal appearance Pupil Exam: PERRL - ENT Exam ENT Exam: Mucous Membranes Moist - Respiratory Exam Respiratory Exam: NORMAL BREATHING PATTERN - Cardiovascular Exam Cardiovascular Exam: REGULAR RHYTHM - GI/Abdominal Exam GI & Abdominal Exam: Distended, Normal Bowel Sounds, Soft, Tenderness. absent: Firm, Guarding, Hernia, Rebound, Rigid Additional comments: +fluid wave +shifting dullness - Extremities Exam Extremities exam: Positive for: normal capillary refill, pedal edema, pedal pulses present. Negative for: calf tenderness - Back Exam Back exam: absent: CVA tenderness (L), CVA tenderness (R) - Neurological Exam Neurological exam: Alert, CN II-XII Intact, Oriented x3 - Psychiatric Exam Psychiatric exam: Normal Affect, Normal Mood - Skin Skin Exam: Dry, Intact, Warm Results - Vital Signs Recent Vital Signs: Last Vital Signs Temp 97.8 F 12/01/17 14:00 Pulse 65 12/01/17 14:00 Resp 16 12/01/17 14:00 BP 116/49 L 12/01/17 14:00 Pulse Ox 95 12/01/17 14:00 - Labs Result Diagrams: 12/02/17 07:00 12/02/17 07:00 Labs: Laboratory Results - last 24 hr 11/30/17 11/30/17 11/30/17 17:35 18:54 21:22 WBC RBC Hgb Hct MCV MCH MCHC RDW Plt Count MPV Gran % Lymph % (Auto) [place] % (Auto) Eos % (Auto) Baso % (Auto) Gran # Lymph # (Auto) [place] # (Auto) Eos # (Auto) Baso # (Auto) Sodium Potassium Chloride Carbon Dioxide Anion Gap BUN Creatinine Est GFR ( Amer) Est GFR (Non-Af Amer) POC Glucose (mg/dL) 54 L 80 121 H Random Glucose Calcium Total Bilirubin AST ALT Alkaline Phosphatase Total Protein Albumin Globulin Albumin/Globulin Ratio 12/01/17 12/01/17 12/01/17 05:15 05:15 06:32 WBC 4.6 D RBC 2.96 L Hgb 9.7 L Hct 28.4 L MCV 95.9 MCH 32.8 MCHC 34.2 RDW 14.9 H Plt Count 57 L MPV 11.5 H Gran % 60.8 Lymph % (Auto) 23.0 [place] % (Auto) 12.1 H Eos % (Auto) 3.9 Baso % (Auto) 0.2 Gran # 2.80 Lymph # (Auto) 1.1 L [place] # (Auto) 0.6 Eos # (Auto) 0.2 Baso # (Auto) 0.01 Sodium 130 L Potassium 3.4 L Chloride 93 L Carbon Dioxide 35 H Anion Gap 6 L BUN 29 H Creatinine 1.6 H Est GFR ( Amer) 37 Est GFR (Non-Af Amer) 31 POC Glucose (mg/dL) 85 Random Glucose 81 Calcium 7.4 L Total Bilirubin 0.9 AST 54 H D ALT 87 H Alkaline Phosphatase 115 Total Protein 4.5 L Albumin 2.2 L Globulin 2.3 Albumin/Globulin Ratio 0.9 L 12/01/17 12/01/17 11:15 15:58 WBC RBC Hgb Hct MCV MCH MCHC RDW Plt Count MPV Gran % Lymph % (Auto) [place] % (Auto) Eos % (Auto) Baso % (Auto) Gran # Lymph # (Auto) [place] # (Auto) Eos # (Auto) Baso # (Auto) Sodium Potassium Chloride Carbon Dioxide Anion Gap BUN Creatinine Est GFR ( Amer) Est GFR (Non-Af Amer) POC Glucose (mg/dL) 207 H 225 H Random Glucose Calcium Total Bilirubin AST ALT Alkaline Phosphatase Total Protein Albumin Globulin Albumin/Globulin Ratio Assessment & Plan - Assessment and Plan (Free Text) Assessment: 82 F with abdominal pain and ascites likely secondary to cardiogenic cause Plan: -Analgesics PRN -Serial abdominal exams -f/u lipase and ammonia in AM -f/u GI recommendations -No surgical intervention needed at this time -Further recommendations as per Dr. Rhys Ambrosio PGY1 - Date & Time Date: 12/01/17 Time: 18:00 <Zay Joiner - Last Filed: 12/02/17 11:59> Meds - Medications Medications: Current Medications Acetaminophen (Tylenol 325mg Tab) 650 mg PO Q6H PRN PRN Reason: Pain, Mild (1-3) Alprazolam (Xanax) 0.25 mg PO [facility] PRN Reason: Protocol Stop: 12/08/17 22:01 Last Admin: 12/01/17 21:12 Dose: 0.25 mg Amlodipine Besylate (Norvasc) 10 mg PO DAILY [facility] Last Admin: 12/02/17 09:30 Dose: 10 mg Aspirin (Aspirin Chewable) 81 mg PO DAILY [facility] Last Admin: 12/02/17 09:29 Dose: 81 mg Potassium Chloride 20 meq/ (Sodium Chloride) 1,010 mls @ 40 mls/hr IV .Q24H [facility] Insulin Human Lispro (Humalog Med) 0 units SC ACHS [facility] PRN Reason: Protocol Last Admin: 12/02/17 11:46 Dose: 7 unit Isosorbide Mononitrate (Imdur) 60 mg PO DAILY [facility] Last Admin: 12/02/17 09:29 Dose: 60 mg Levalbuterol HCl (Xopenex) 0.63 mg IH TIDRESP [facility] Last Admin: 12/02/17 07:17 Dose: 0.63 mg Morphine Sulfate (Morphine) 2 mg IVP Q6H PRN PRN Reason: Pain, moderate (4-7) Last Admin: 12/01/17 21:51 Dose: 2 mg Nystatin (Nystop Topical Powder) 0 gm TOP BID [facility] Last Admin: 12/02/17 09:30 Dose: 1 appful Ondansetron HCl (Zofran Inj) 4 mg IVP Q6H PRN PRN Reason: Nausea/Vomiting Pantoprazole Sodium (Protonix Ec Tab) 40 mg PO 0630 [facility] Last Admin: 12/02/17 05:30 Dose: 40 mg Results - Vital Signs Recent Vital Signs: Last Vital Signs Temp 98 F 12/02/17 08:37 Pulse 60 12/02/17 08:37 Resp 20 12/02/17 08:37 BP 108/54 L 12/02/17 09:30 Pulse Ox 96 12/02/17 08:37 - Labs Result Diagrams: 12/02/17 07:00 12/02/17 07:00 Labs: Laboratory Results - last 24 hr 12/01/17 12/01/17 12/01/17 06:32 11:15 15:58 WBC RBC Hgb Hct MCV MCH MCHC RDW Plt Count MPV Gran % Lymph % (Auto) [place] % (Auto) Eos % (Auto) Baso % (Auto) Gran # Lymph # (Auto) [place] # (Auto) Eos # (Auto) Baso # (Auto) Sodium Potassium Chloride Carbon Dioxide Anion Gap BUN Creatinine Est GFR ( Amer) Est GFR (Non-Af Amer) POC Glucose (mg/dL) 85 207 H 225 H Random Glucose Calcium Total Bilirubin AST ALT Alkaline Phosphatase Ammonia NT-Pro-B Natriuret Pep Total Protein Albumin Globulin Albumin/Globulin Ratio Lipase 12/01/17 12/02/17 12/02/17 21:22 07:00 07:00 WBC 4.9 RBC 3.01 L Hgb 10.1 L Hct 28.7 L MCV 95.3 MCH 33.6 MCHC 35.2 RDW 14.8 H Plt Count 68 L MPV 10.9 Gran % 57.9 Lymph % (Auto) 23.9 [place] % (Auto) 15.1 H Eos % (Auto) 2.9 Baso % (Auto) 0.2 Gran # 2.84 Lymph # (Auto) 1.2 [place] # (Auto) 0.7 H Eos # (Auto) 0.1 Baso # (Auto) 0.01 Sodium 128 L Potassium 3.8 Chloride 91 L Carbon Dioxide 31 Anion Gap 9 L BUN 27 H Creatinine 1.6 H Est GFR ( Amer) 37 Est GFR (Non-Af Amer) 31 POC Glucose (mg/dL) 250 H Random Glucose 176 H Calcium 7.2 L Total Bilirubin 1.0 AST 49 H ALT 83 H Alkaline Phosphatase 115 Ammonia NT-Pro-B Natriuret Pep Total Protein 4.5 L Albumin 2.2 L Globulin 2.3 Albumin/Globulin Ratio 1.0 L Lipase 12/02/17 12/02/17 12/02/17 07:00 09:15 09:15 WBC RBC Hgb Hct MCV MCH MCHC RDW Plt Count MPV Gran % Lymph % (Auto) [place] % (Auto) Eos % (Auto) Baso % (Auto) Gran # Lymph # (Auto) [place] # (Auto) Eos # (Auto) Baso # (Auto) Sodium Potassium Chloride Carbon Dioxide Anion Gap BUN Creatinine Est GFR ( Amer) Est GFR (Non-Af Amer) POC Glucose (mg/dL) 190 H Random Glucose Calcium Total Bilirubin AST ALT Alkaline Phosphatase Ammonia 16 NT-Pro-B Natriuret Pep 2380 H Total Protein Albumin Globulin Albumin/Globulin Ratio Lipase 114 12/02/17 11:06 WBC RBC Hgb Hct MCV MCH MCHC RDW Plt Count MPV Gran % Lymph % (Auto) [place] % (Auto) Eos % (Auto) Baso % (Auto) Gran # Lymph # (Auto) [place] # (Auto) Eos # (Auto) Baso # (Auto) Sodium Potassium Chloride Carbon Dioxide Anion Gap BUN Creatinine Est GFR ( Amer) Est GFR (Non-Af Amer) POC Glucose (mg/dL) 319 H Random Glucose Calcium Total Bilirubin AST ALT Alkaline Phosphatase Ammonia NT-Pro-B Natriuret Pep Total Protein Albumin Globulin Albumin/Globulin Ratio Lipase Assessment & Plan - Assessment and Plan (Free Text) Assessment: Dx Cardiac Ascites(Right heart failure-Pulm hypertension) No surgical interventions recommended This consult done under my direct supervision Jim Joinre MD FACS
[2017-12-01] MEDS ORDERED: Morphine 2 mg/2 mL syringe IVP PRN (19:09)
[2017-12-01] MEDS ORDERED: Sodium Chloride 0.45% 1,000 ML IV SCH (19:15)
--- NOTE | 2017-12-02 00:53 | PN ---
DATE: 12/01/2017 SUBJECTIVE: Patient is an 82 years old, seen and examined, complaining of abdominal discomfort. Complaining of feeling nauseous. Not very happy to drink p.o. contrast. PHYSICAL EXAMINATION: VITAL SIGNS: She is afebrile, pulse 65, respiration 16, blood pressure 116/49. LUNGS: Bilateral diffusely decreased breath sounds. HEART: S1 and S2 audible. ABDOMEN: Soft, with slight periumbilical epigastric discomfort. NEUROLOGICAL: She is awake, alert, oriented. Able to communicate. EXTREMITIES: Bilateral legs, +2 edema. LABORATORY DATA: WBC 4.6, hemoglobin 9.7, hematocrit 28.4, platelet of 57. Chemistry: Sodium 130, potassium 3.4, chloride 93, CO2 of 35, BUN 29, creatinine 1.6, blood sugar of 225. AST 54, AST 87. Urine has species. She had CT of the chest and abdomen done that shows left lobe subsegmental infiltrate, and CT of the abdomen and pelvis, intra-abdominal ascites, status post recent paracentesis, cholelithiasis but no cholecystitis. ASSESSMENT: 1. Congestive heart failure. 2. Cardiac cirrhosis. 3. Right ventricular failure. 4. Insulin-dependent diabetes. 5. Hyponatremia. 6. [id number] renal failure. PLAN: Patient's overall intake is very poor. Start her on 40 mL of IV saline, supplement her potassium, Zofran as needed. Patient is requesting for sleeping pill. We gave her 2 mg of morphine every 4 p.r.n. Ordered for SAURAV stocking. We will monitor her electrolytes. Follow up in the a.m. Harsh Morataya MD
[2017-12-02] MEDS: Pantoprazole 40 mg EC Tab PO SCH (05:30)
[2017-12-02] MEDS: Levalbuterol 0.63 MG/3 ML Inhal Soln UD IH SCH ×3 (07:17→19:40)
[2017-12-02 07:18] LABS: BASO # 0.01 K/mm3 (0.0-2.0); BASO % 0.2 % (0.0-3.0); EOS # 0.1 (0.0-0.7); EOS % 2.9 % (1.5-5.0); GRAN # 2.84 (1.4-6.5); GRAN % 57.9 % (50.0-68.0); HEMOGLOBIN 10.1 g/dL (12.0-16.0); LYMPH # 1.2 (1.2-3.4); LYMPH % 23.9 % (22.0-35.0); MEAN CELL VOLUME 95.3 fl (80.0-105.0); MEAN CORPUSCULAR HEMOGLOBIN 33.6 pg (25.0-35.0); MEAN CORPUSCULAR HGB CONC 35.2 g/dl (31.0-37.0); MEAN PLATELET VOLUME 10.9 fl (7.0-11.0); MONO # 0.7 (0.1-0.6); MONO % 15.1 % (1.0-6.0); RBC 3.01 10^6/uL (3.5-6.1); RED CELL DISTRIBUTION WIDTH 14.8 % (11.5-14.5); WHITE BLOOD COUNT 4.9 10^3/ul (4.5-11.0)
[2017-12-02 07:30] LABS: ALBUMIN 2.2 g/dL (3.0-4.8); CALCIUM 7.2 mg/dL (8.4-10.5)
[2017-12-02] MEDS: Insulin Lispro (humaLOG) MEDIUM Coverage SC SCH ×4 (08:00→21:31)
[2017-12-02] MEDS: Nystatin 100,000 Units/gm Topical Pow(15 gm) TOP SCH ×2 (09:30→17:16)
--- NOTE | 2017-12-02 10:29 | CP.PCM.PN ---
Subjective - Date & Time of Evaluation Date of Evaluation: 12/02/17 Time of Evaluation: 08:00 - Subjective Subjective: Patient seen and examined at bedside this AM. Patient states that her pain is improved since yesterday and denies any nausea or vomiting. States she is passing gas and having bowel movements, tolerating full liquid diet Objective - Vital Signs/Intake and Output Vital Signs (last 24 hours): Temp Pulse Resp BP Pulse Ox 98 F 60 20 108/54 L 96 12/02/17 08:37 12/02/17 08:37 12/02/17 08:37 12/02/17 09:30 12/02/17 08:37 - Medications Medications: Current Medications Acetaminophen (Tylenol 325mg Tab) 650 mg PO Q6H PRN PRN Reason: Pain, Mild (1-3) Alprazolam (Xanax) 0.25 mg PO HS [facility] PRN Reason: Protocol Stop: 12/08/17 22:01 Last Admin: 12/01/17 21:12 Dose: 0.25 mg Amlodipine Besylate (Norvasc) 10 mg PO DAILY [facility] Last Admin: 12/02/17 09:30 Dose: 10 mg Aspirin (Aspirin Chewable) 81 mg PO DAILY [facility] Last Admin: 12/02/17 09:29 Dose: 81 mg Sodium Chloride (Sodium Chloride 0.45%) 1,000 mls @ 40 mls/hr IV .Q24H [facility] Last Admin: 12/01/17 21:14 Dose: Not Given Insulin Human Lispro (Humalog Med) 0 units SC ACHS [facility] PRN Reason: Protocol Last Admin: 12/02/17 08:00 Dose: 1 unit Isosorbide Mononitrate (Imdur) 60 mg PO DAILY [facility] Last Admin: 12/02/17 09:29 Dose: 60 mg Levalbuterol HCl (Xopenex) 0.63 mg IH TIDRESP [facility] Last Admin: 12/02/17 07:17 Dose: 0.63 mg Morphine Sulfate (Morphine) 2 mg IVP Q6H PRN PRN Reason: Pain, moderate (4-7) Last Admin: 12/01/17 21:51 Dose: 2 mg Nystatin (Nystop Topical Powder) 0 gm TOP BID [facility] Last Admin: 12/02/17 09:30 Dose: 1 appful Ondansetron HCl (Zofran Inj) 4 mg IVP Q6H PRN PRN Reason: Nausea/Vomiting Pantoprazole Sodium (Protonix Ec Tab) 40 mg PO 0630 [facility] Last Admin: 12/02/17 05:30 Dose: 40 mg - Labs Labs: 12/02/17 07:00 12/02/17 07:00 PT 13.9 SECONDS (9.4-12.5) H 11/30/17 07:51 INR 1.20 (0.93-1.08) H 11/30/17 07:51 APTT 27.3 Seconds (25.1-36.5) 11/30/17 07:51 - Constitutional Appears: Well, Non-toxic, No Acute Distress - Head Exam Head Exam: ATRAUMATIC, NORMOCEPHALIC - Eye Exam Eye Exam: Normal appearance. absent: Conjunctival injection, Scleral icterus - ENT Exam ENT Exam: Mucous Membranes Moist, Normal Oropharynx - Respiratory Exam Respiratory Exam: NORMAL BREATHING PATTERN. absent: Accessory Muscle Use, Respiratory Distress - GI/Abdominal Exam GI & Abdominal Exam: Distended (moderately), Soft. absent: Tenderness, Rebound Additional comments: dressing over percutaneous drainage site c/d/i - Extremities Exam Extremities Exam: absent: Calf Tenderness, Tenderness - Neurological Exam Neurological Exam: Alert, Awake, Oriented x3 - Psychiatric Exam Psychiatric exam: Normal Affect, Normal Mood - Skin Skin Exam: Dry, Intact, Normal Color, Warm Assessment and Plan - Assessment and Plan (Free Text) Assessment: 82F with ascites s/p paracentesis and abdominal pain--now resolved Plan: F/U lipase, ammonia, BNP to asses for cause of abdominal pain/ascities PRN pain medication f/u GI recommendations No surgical intervention needed at this time Further recommendations as per Dr. Rhys Rocha, PGY2
[2017-12-02 10:42] LABS: LIPASE 114 U/L (23-300)
[2017-12-02] MEDS ORDERED: Sodium Chloride 0.9% 1,000 ML IV SCH (10:45)
[2017-12-02 10:52] LABS: B-TYPE NATRIURETIC PEPTIDE 2380 pg/mL (0-450)
[2017-12-02] MEDS: Cefepime 1gm in NS 100ml 1 GM/100 ML BAG IVPB SCH ×2 (12:47→21:06)
--- NOTE | 2017-12-02 13:00 | PN ---
DATE: 12/02/2017 SUBJECTIVE: The patient is 82 years old, seen and examined, sitting in chair. Seems to be a little comfortable. Still has abdominal discomfort. Could not sleep well last night. Does not like effect of Xanax. PHYSICAL EXAMINATION: VITAL SIGNS: She is afebrile, pulse 60, respirations 20, blood pressure 108/54. LUNGS: Bilateral good airflow. Decreased at bases. HEART: S1 and S2 audible. ABDOMEN: Soft. Still distended, but no rebound or guarding. NEUROLOGICAL: She is awake and alert, able to communicate. LABORATORY EXAM: WBC is 4.9, hemoglobin 10, hematocrit 28.7, platelet of 68. Chemistry: Sodium 128, potassium 3.8, chloride 91, CO2 of 9, BUN 26, creatinine 1.6, blood sugar 319. CT of the chest only shows pleural effusion. However, she has multifocal infiltrate with residual left lower lobe subsegmental infiltrate. CT of the abdomen shows ascites. ASSESSMENT: 1. Cardiac cirrhosis. 2. Chronic obstructive pulmonary disease. 3. Pulmonary hypertension. 4. Coronary artery disease, status post angioplasty. PLAN: I will start the patient on Maxipime 1 g every 12. I will continue her on small dose of Lasix. Monitor her electrolytes. Monitor her blood sugar. Once the patient's oral intake improves, we will put her on steady dose of insulin. Harsh Morataya MD
[2017-12-02 17:57] LABS: URINE BILIRUBIN NEGATIVE (NEGATIVE); URINE BLOOD SMALL (NEGATIVE); URINE GLUCOSE (UA) NEGATIVE (NEGATIVE); URINE LEUKOCYTE ESTERASE MODERATE Leu/uL (NEGATIVE); URINE PROTEIN TRACE mg/dL (<30 mg/dL); URINE UROBILINOGEN 0.2 E.U./dL (<1 E.U./dL)
[2017-12-02 17:58] LABS: URINE APPEARANCE CLOUDY (CLEAR); URINE COLOR YELLOW (YELLOW)
[2017-12-02 17:59] LABS: URINE WBC TNTC /hpf (0-6)
[2017-12-02 18:00] LABS: URINE BACTERIA MANY (NEG)
--- NOTE | 2017-12-03 05:39 | CP.PCM.PCO ---
Physician Communication Note - Physician Communication Note Physician Communication Note: Liam:Spironolactone/NO Perit-Venous shunt
[2017-12-03] MEDS: Pantoprazole 40 mg EC Tab PO SCH (05:54)
[2017-12-03] MEDS: Levalbuterol 0.63 MG/3 ML Inhal Soln UD IH SCH ×3 (07:12→20:22)
[2017-12-03 07:25] LABS: CALCIUM 7.5 mg/dL (8.4-10.5)
[2017-12-03] MEDS: Insulin Lispro (humaLOG) MEDIUM Coverage SC SCH ×3 (08:28→16:35)
[2017-12-03] MEDS: Nystatin 100,000 Units/gm Topical Pow(15 gm) TOP SCH ×2 (10:10→17:17)
[2017-12-03] MEDS: Cefepime 1gm in NS 100ml 1 GM/100 ML BAG IVPB SCH (10:12)
[2017-12-03] MEDS ORDERED: Cefepime 1gm in NS 100ml 1 GM/100 ML BAG IVPB SCH (11:36)
--- NOTE | 2017-12-03 11:37 | CP.PCM.PN ---
Subjective - Date & Time of Evaluation Date of Evaluation: 12/03/17 Time of Evaluation: 11:33 - Subjective Subjective: General Surgery Progress note for Dr. Joiner Patient seen and examined at bedside this AM. Patient states that her pain is resolved and denies any nausea or vomiting. States she is passing gas and having bowel movements, tolerating full liquid diet. Objective - Vital Signs/Intake and Output Vital Signs (last 24 hours): Temp Pulse Resp BP Pulse Ox 98.1 F 83 18 120/60 95 12/03/17 07:29 12/03/17 07:29 12/03/17 07:29 12/03/17 10:09 12/03/17 07:29 Intake and Output: 12/03/17 12/03/17 06:59 18:59 Intake Total 600 Balance 600 - Medications Medications: Current Medications Acetaminophen (Tylenol 325mg Tab) 650 mg PO Q6H PRN PRN Reason: Pain, Mild (1-3) Amlodipine Besylate (Norvasc) 10 mg PO DAILY [facility] Last Admin: 12/03/17 10:09 Dose: 10 mg Aspirin (Aspirin Chewable) 81 mg PO DAILY [facility] Last Admin: 12/03/17 10:09 Dose: 81 mg Cefepime HCl (Maxipime 1gm) 1 gm in 100 mls @ 100 mls/hr IVPB Q12 [facility] PRN Reason: Protocol Last Admin: 12/03/17 10:12 Dose: 100 mls/hr Insulin Human Lispro (Humalog Med) 0 units SC ACHS [facility] PRN Reason: Protocol Last Admin: 12/03/17 08:28 Dose: 1 unit Isosorbide Mononitrate (Imdur) 60 mg PO DAILY [facility] Last Admin: 12/03/17 10:09 Dose: 60 mg Levalbuterol HCl (Xopenex) 0.63 mg IH TIDRESP [facility] Last Admin: 12/03/17 07:12 Dose: 0.63 mg Nystatin (Nystop Topical Powder) 0 gm TOP BID [facility] Last Admin: 12/03/17 10:10 Dose: 1 appful Ondansetron HCl (Zofran Inj) 4 mg IVP Q6H PRN PRN Reason: Nausea/Vomiting Pantoprazole Sodium (Protonix Ec Tab) 40 mg PO 0630 [facility] Last Admin: 12/03/17 05:54 Dose: 40 mg Spironolactone (Aldactone) 50 mg PO BID [facility] Tramadol HCl (Ultram) 50 mg PO Q6H PRN PRN Reason: Pain, severe (8-10) Last Admin: 12/03/17 03:09 Dose: 50 mg Zolpidem Tartrate (Ambien) 5 mg PO HS PRN; Protocol PRN Reason: Insomnia - Labs Labs: PT 13.9 SECONDS (9.4-12.5) H 11/30/17 07:51 INR 1.20 (0.93-1.08) H 11/30/17 07:51 APTT 27.3 Seconds (25.1-36.5) 11/30/17 07:51 Abnormal Lab Results 12/02/17 12/02/17 12/02/17 14:20 16:09 17:38 Sodium Potassium Chloride Carbon Dioxide Anion Gap BUN Creatinine Est GFR ( Amer) Est GFR (Non-Af Amer) POC Glucose (mg/dL) 249 H Random Glucose Calcium Phosphorus Magnesium Procalcitonin 0.39 Urine Color Yellow Urine Appearance Cloudy Urine pH 6.0 Ur Specific [place] 1.020 Urine Protein Trace H Urine Glucose (UA) Negative Urine Ketones Negative Urine Blood Small H Urine Nitrate Negative Urine Bilirubin Negative Urine Urobilinogen 0.2 Ur Leukocyte Esterase Moderate H Urine RBC 10 - 15 Urine WBC Tntc Ur Epithelial Cells 6 - 8 Urine Bacteria Many 12/02/17 12/03/17 12/03/17 21:20 06:30 06:40 Sodium 128 L Potassium 4.0 Chloride 92 L Carbon Dioxide 32 Anion Gap 7 L BUN 27 H Creatinine 1.6 H Est GFR ( Amer) 37 Est GFR (Non-Af Amer) 31 POC Glucose (mg/dL) 146 H 181 H Random Glucose 169 H Calcium 7.5 L Phosphorus 3.0 Magnesium 2.1 Procalcitonin Urine Color Urine Appearance Urine pH Ur Specific [place] Urine Protein Urine Glucose (UA) Urine Ketones Urine Blood Urine Nitrate Urine Bilirubin Urine Urobilinogen Ur Leukocyte Esterase Urine RBC Urine WBC Ur Epithelial Cells Urine Bacteria - Constitutional Appears: Well, No Acute Distress - Head Exam Head Exam: ATRAUMATIC, NORMOCEPHALIC - ENT Exam ENT Exam: Mucous Membranes Moist - Respiratory Exam Respiratory Exam: NORMAL BREATHING PATTERN - GI/Abdominal Exam GI & Abdominal Exam: Distended. absent: Guarding, Rigid, Tenderness - Extremities Exam Extremities Exam: Full ROM, Pedal Edema. absent: Tenderness - Psychiatric Exam Psychiatric exam: Normal Affect, Normal Mood - Skin Skin Exam: Erythema, Rash Additional comments: skin irritation due to chronic pedal edema bilaterally Assessment and Plan (1) Ascites Status: Acute - Assessment and Plan (Free Text) Assessment: 82 y/o F with abdominal ascites d/t CHF Plan: PRN pain medication f/u GI recommendations No surgical intervention needed at this time Further recommendations per Dr Joiner
--- NOTE | 2017-12-03 17:34 | US ---
PROCEDURE: Portal vein duplex ultrasound. CLINICAL HISTORY: Cirrhosis. Deteriorating liver function. Evaluate for portal vein thrombosis. PHYSICIAN(S): Geovanni Fitch M.D. FINDINGS: The hepatic parenchyma is heterogeneous with a nodular contour. This is consistent with cirrhosis. No obvious mass is appreciated on these limited images. The extrahepatic portal vein is patent with hepatopetal flow. The hepatic artery is patent and hypertrophied The spleen is normal in size. There is a small amount of ascites in the upper abdomen. IMPRESSION: 1. Patent portal vein with hepatopetal flow.
--- NOTE | 2017-12-03 22:36 | CON ---
DATE: 12/03/2017 GASTROENTEROLOGY CONSULTATION REQUESTING PHYSICIAN: Harsh Morataya MD REASON FOR CONSULTATION AND HISTORY OF PRESENT ILLNESS: I have been asked to see this 82-year-old female with multiple comorbidities including insulin-dependent diabetes mellitus, cardiac cirrhosis, chronic kidney disease, thrombocytopenia, multiple GI bleed from bleeding right colon AVMs, who comes to the hospital with increasing abdominal distention and swelling of her legs. The patient was treated conservatively as an outpatient without significant improvement. She was admitted for further treatment and workup. She underwent a large-volume paracentesis three days ago with Dr. Geovanni Fitch who took up 3 liters of fluid. The paracentesis revealed low levels of polymorphonuclear cells. The patient currently is comfortable. She has some continued pedal edema. She denies any nausea, vomiting or shortness of breath. She complains of some itching of her lower extremities. CT scan of the abdomen and pelvis performed here in the hospital showed cirrhosis with moderate amount of ascites. There is no mass seen in the abdomen or pelvis. CT scan of the chest did show improving pleural effusion with some subsegmental infiltrates in the lower lobes of the lungs. PAST MEDICAL HISTORY: As above. Again, she has a history of insulin-dependent diabetes mellitus, chronic kidney disease, cardiac cirrhosis, history of multiple GI bleeds from bleeding AVM in the right colon, thrombocytopenia. PAST SURGICAL HISTORY: Notable for right hemicolectomy. SOCIAL HISTORY: There is no history of cigarette smoking or alcohol use. FAMILY HISTORY: Noncontributory. REVIEW OF SYSTEMS: A 14-point review of systems is notable for generalized weakness, increasing abdominal girth, pedal edema. MEDICATIONS AT HOME: Include Ultracet, Apresoline, Robitussin, polyethylene glycol, Nitrostat, Xopenex, Isordil, Feosol, insulin Humalog 75/25, Levemir, glipizide, Lasix, baby aspirin, Norvasc and acetaminophen. PHYSICAL EXAMINATION GENERAL: Elderly female appearing weak, lying in bed, no acute distress. VITAL SIGNS: Reveal temperature of 98.1, blood pressure 116/53, heart rate of 83. HEENT: Revealed sclerae to be white. Conjunctivae pink. NECK: Supple. CHEST: Revealed lungs have basilar rales. HEART: Reveals regular rate and rhythm. There is a II/ systolic murmur. ABDOMEN: Distended with ascites with a positive fluid wave. EXTREMITIES: Show 2+ pedal edemas from the feet all the way to the pretibial areas. LABORATORY DATA: Revealed hemoglobin 10.1, white blood cell count 4.9, platelet count of 68,000. Chemistries reveal sodium of 128, BUN 27, creatinine 1.6, blood sugar 176, AST 49, ALT 83, alkaline phosphatase 115, albumin of 2.2. Coags reveal PT 13.9, INR of 1.2, PTT 27.3. Cell count from ascites revealed total rbc count of 880, 41.3 white blood cells with a total cell count of 100 with 9.1% neutrophils and 90.9% lymphocytes. IMPRESSION: An 82-year-old female admitted with decompensated cardiac cirrhosis with ascites and increasing pedal edema. CT scan of the abdomen did not show any other lesions. She has a cirrhotic appearing liver on CAT scan. She also has low platelet count probably from splenic sequestration and portal hypertension. There is no evidence of active bleeding at this time. Given her other comorbidities, her long-term prognosis is extremely poor. RECOMMENDATIONS: 1. I will start the patient on Aldactone 50 mg p.o. twice a day. 2. We will obtain a duplex scan of the portal vein to rule out portal vein thrombosis. 3. Need to follow electrolytes and renal function closely given her chronic kidney disease. 4. If the patient does not diurese adequately, she may need to be started on Lasix again with close monitoring of BUN and creatinine. Sandoval Arizmendi MD
[2017-12-04] MEDS: Pantoprazole 40 mg EC Tab PO SCH (05:43)
[2017-12-04] MEDS: Insulin Lispro (humaLOG) MEDIUM Coverage SC SCH ×5 (05:58→22:21)
[2017-12-04] MEDS: Levalbuterol 0.63 MG/3 ML Inhal Soln UD IH SCH ×4 (07:19→20:44)
--- NOTE | 2017-12-04 08:05 | PN ---
DATE: 12/03/2017 SUBJECTIVE: The patient is 82 years old, lying in bed, seems to be comfortable. No nausea, vomiting. No diarrhea. PHYSICAL EXAMINATION: VITAL SIGNS: The patient is afebrile, pulse 80, respirations 18, blood pressure 124/60. LUNGS: Bilateral good airflow. No rhonchi or crackle. HEART: S1 and S2 audible. ABDOMEN: Soft although, is distended. She still have abdominal pain, has gotten better. No more nausea. No vomiting. EXTREMITIES: Bilateral legs, +3 edema. LABORATORY EXAM: WBC is 4.9, hemoglobin 10, hematocrit 28.7, platelets 68. Chemistry: Sodium 128, potassium 4, chloride 92, CO2 of 32, BUN 27, creatinine 1.6, blood sugar of 220. Blood culture, urine cultures are negative. Initial urine culture was positive for species. Abdominal ultrasound was done, shows patent portal vein. ASSESSMENT AND PLAN: 1. Probably cardiac cirrhosis. 2. Ascites. 3. Coronary artery disease, status post multiple angioplasties. 4. Thrombocytopenia. 5. Insulin-dependent diabetes. 6. Bilateral leg edema. 7. Chronic anemia. 8. Acute on chronic renal failure. PLAN: Currently, the patient is on Maxipime. We will continue that, was evaluated by Dr. Arizmendi, has been started on tramadol. Monitor her blood sugar. We will discuss with other domestic travel consultant and make ____. Harsh Morataya MD
--- NOTE | 2017-12-04 08:08 | CON ---
DATE: 12/03/2017 LOCATION: The patient was seen earlier this morning in room 576, bed 2. CHIEF COMPLAINT: Abdominal pain x1 day. HISTORY OF PRESENT ILLNESS: This is an 82-year-old female with hypertension, diabetes, congestive heart failure, coronary artery disease, history of HCAP, history of cardiac cirrhosis, anemia, chronic obstructive lung disease, pulmonary hypertension, GI AV malformations and colon resection in 2014, renal disease, arthritis, history of zoster and hepatitis B, who was admitted with diagnosis of ascites and abdominal pain. The patient seen in bed and states that abdominal pain has resolved. There are no fevers and no chills. No chest pain. There was shortness of breath and orthopnea. No dysuria or frequency. No headaches. No blurry vision. REVIEW OF SYSTEMS: A 12-point review of system is performed. PAST MEDICAL HISTORY: Significant for diabetes, hypertension, cardiac cirrhosis, anemia, congestive heart failure, coronary artery disease, chronic obstructive lung disease, pulmonary hypertension, GI bleed with AV malformation and renal disease, arthritis, zoster and hepatitis B. PAST SURGICAL HISTORY: Significant for cardiac catheterization with PCI, , appendectomy and colon resection, colon surgery in 2014. ALLERGIES: THE PATIENT IS ALLERGIC TO SHELLFISH. MEDICATIONS AT HOME: Are reviewed and noted with tramadol, vitamins, Xopenex, isosorbide. PHYSICAL EXAMINATION: GENERAL: On exam, the patient is in bed. She appears to be comfortable, doing well. VITAL SIGNS: Temperature of 98, blood pressure is 108/40, respiratory rate of 18, heart rate of 64. HEENT: Examination is unremarkable. NECK: Supple. LUNGS: Have decreased breath sounds. HEART: Normal S1, S2. ABDOMEN: Soft, nontender. No organomegaly. No rebound or guarding. No masses. EXTREMITIES: Examination of the lower extremities reveals the patient has bilateral edema. DATA: Laboratory examination reveals white count of 4.9, hemoglobin of 10, platelets of 68. Coagulation is noted and chemistries reveals a BUN of 27, creatinine is 1.6. Patient's procalcitonin which I ordered yesterday, 0.39. Urinalysis is noted. There is pbx-[id number]-xi-count wbc's, many bacteria, moderate leukocyte esterase and the patient's peritoneal and ascitic fluid reveals wbc's of 41 and 90% lymphocytes and microbiology reveals the urine culture as a application tester species and the ascitic fluid culture has no growth. No and no growth at 3 days. 's note is reviewed. The patient had a CAT scan of the chest which revealed a resolving pneumonia. CAT scan of the abdomen and pelvis which revealed ascites. Paracentesis note is reviewed. ASSESSMENT AND PLAN: This is an 82-year-old female, who was seen by me on 11/17/2017 with hypertension, diabetes, and congestive heart failure, coronary artery disease, arteriovenous malformation, renal disease, chronic obstructive pulmonary disease, pulmonary hypertension, cardiac cirrhosis, zoster, hepatitis B, admitted with acute diastolic congestive heart failure on top of chronic congestive heart failure. The patient had an echo in November which showed an ejection fraction of 70%. The patient did have health-care associated pneumonia which is resolving and then the CAT scan findings with a negative procalcitonin and abdominal pain, I believe, is probably abdominal discomfort from the acute diastolic congestive heart failure. The patient does have a Gram-negative cassia application tester species, minimal symptoms, currently on Maxipime day #2. We will check on the identification of the organism in the urine. I will make further recommendations. Will follow closely with you. Yovany Otero MD
[2017-12-04] MEDS: Nystatin 100,000 Units/gm Topical Pow(15 gm) TOP SCH ×2 (09:25→17:09)
--- NOTE | 2017-12-04 13:19 | PN ---
DATE: 12/04/2017 SUBJECTIVE: The patient remains weak, lying in bed. She continues to have some abdominal distention and pedal edema. She denies any nausea or vomiting. She had some leakage of ascites from her right lower quadrant paracentesis site. OBJECTIVE: VITAL SIGNS: Reveal temperature of 98.3, blood pressure 111/64, heart rate of 87. HEENT: Reveal sclerae to be white. Conjunctivae pale. NECK: Supple. CHEST: Reveals lungs to be clear. HEART: Exam reveals a regular rate and rhythm. ABDOMEN: Softly distended. There is a fluid wave. She has a dry dressing in the right lower quadrant. EXTREMITIES: Show 2+ pedal edema. LABORATORY DATA: No new laboratory data available. IMPRESSION: Decompensated cardiac cirrhosis with volume overload with ascites and pedal edema.. Her long-term prognosis is poor. She has multiple comorbidities including diabetes mellitus, chronic renal insufficiency, chronic anemia, thrombocytopenia, and history of pulmonary hypertension. RECOMMENDATIONS: 1. Continue Aldactone 50 mg b.i.d. 2. I will start the patient on Lasix 40 mg once a day to see if we can mobilize her volume overload. 3. Follow electrolytes, BUN and creatinine closely. Sandoval Arizmendi MD
--- NOTE | 2017-12-04 21:32 | PN ---
DATE: 12/04/2017 SUBJECTIVE: The patient is seen early this morning in room 576, bed 2. PHYSICAL EXAMINATION: VITAL SIGNS: On exam, temperature is 98, blood pressure is 111/60, respiratory rate of 18, heart rate of 80. HEENT: Examination of HEENT is unremarkable. NECK: Supple. LUNGS: Have decreased breath sounds. HEART: Normal S1 and S2. ABDOMEN: Soft, nontender. LABORATORY DATA: Laboratory examination reveals a white count of 4.9. Chemistries are noted. Urinalysis reveals too numerous to count wbc's in the urine. Ascitic fluid reveals 41 wbc's. Microbiology reveals the repeat urine has a gram-positive cocci. Dr. Arizmendi's note is reviewed and Dr. Morataya's note is reviewed from yesterday. ASSESSMENT AND PLAN: This is an 82-year-old female who was seen early this morning in room 576, bed 2, who has had diabetes and congestive heart failure, coronary artery disease, arteriovenous malformation, renal disease, chronic obstructive disease, pulmonary disease, pulmonary hypertension, cardiac cirrhosis, zoster, hepatitis C. On this admission, the patient was admitted with acute diastolic congestive heart failure on top of chronic congestive heart failure. The patient in 11/2017 had an echo, which showed 70% ejection fraction. She did have a history of healthcare associated pneumonia, which is resolving on the CAT scan. We will discontinue the Maxipime . The patient is at risk for developing nosocomial infection. Yovany Otero MD
[2017-12-05] MEDS: Pantoprazole 40 mg EC Tab PO SCH (05:38)
[2017-12-05 06:54] LABS: BASO # 0.03 K/mm3 (0.0-2.0); BASO % 0.9 % (0.0-3.0); EOS # 0.1 (0.0-0.7); EOS % 2.3 % (1.5-5.0); GRAN # 1.77 (1.4-6.5); GRAN % 50.8 % (50.0-68.0); HEMOGLOBIN 10.1 g/dL (12.0-16.0); LYMPH % 27.9 % (22.0-35.0); MEAN CELL VOLUME 94.4 fl (80.0-105.0); MEAN CORPUSCULAR HEMOGLOBIN 33.4 pg (25.0-35.0); MEAN CORPUSCULAR HGB CONC 35.4 g/dl (31.0-37.0); MONO # 0.6 (0.1-0.6); MONO % 18.1 % (1.0-6.0); RBC 3.02 10^6/uL (3.5-6.1); WHITE BLOOD COUNT 3.5 10^3/ul (4.5-11.0)
[2017-12-05 07:07] LABS: ALBUMIN 2.1 g/dL (3.0-4.8); CALCIUM 7.6 mg/dL (8.4-10.5)
[2017-12-05] MEDS: Levalbuterol 0.63 MG/3 ML Inhal Soln UD IH SCH ×3 (07:37→20:20)
[2017-12-05] MEDS: Insulin Lispro (humaLOG) MEDIUM Coverage SC SCH ×4 (08:15→22:00)
[2017-12-05] MEDS: Nystatin 100,000 Units/gm Topical Pow(15 gm) TOP SCH ×2 (09:08→17:21)
[2017-12-05 12:10] LABS: CALCIUM 7.6 mg/dL (8.4-10.5)
--- NOTE | 2017-12-05 15:20 | PN ---
DATE: 12/05/2017 COVERAGE FOR: Harsh Morataya MD. SUBJECTIVE: The patient has no complaints of any chest pain or shortness of breath, no headaches or dizziness. PHYSICAL EXAMINATION: VITAL SIGNS: Temperature is 98, pulse 95, blood pressure 119/64, respirations 20. GENERAL: The patient is lying in bed, flat, comfortable. HEENT: No oral lesion. Anicteric sclerae. Moist mucosa. NECK: No JVD, adenopathy, or thyromegaly. CARDIOVASCULAR: S1 and S2, regular. No murmurs, rubs, or gallops. LUNGS: Clear to auscultation bilaterally. No wheeze, rales, or rhonchi. ABDOMEN: Mild distention secondary to ascites. EXTREMITIES: No cyanosis, clubbing or edema. LABORATORY DATA: White count is 3.5, hemoglobin 10.1. Sodium is 128, creatinine is 1.6. ASSESSMENT: 1. Cirrhosis. 2. Ascites. 3. Thrombocytopenia. 4. Diabetes type 2. 5. Lower extremity edema. 6. Chronic anemia. 7. Urinary tract infection secondary to gram-positive cocci. 8. Chronic kidney disease, stage 3. PLAN: The patient is currently on Aldactone. She is on aspirin. She is going to be on Lasix daily. The patient is on Norvasc for hypertension. Patient is on Xopenex for her breathing. She is on Zofran for her nausea. She is on carbohydrate consistent diet. Patient's sodium is low, it is most likely related to the cirrhosis. I will increase her Lasix to twice a day to help with the diuresis. Gamal Rosenthal MD
--- NOTE | 2017-12-05 16:10 | PN ---
DATE: 12/05/2017 SUBJECTIVE: The patient was seen earlier in 576, bed 2. No fevers, no chills. Uneventful night. No abdominal pain or diarrhea. PHYSICAL EXAMINATION VITAL SIGNS: Temperature is 98, blood pressure is 120/70, respiratory rate 16. HEENT: Unremarkable. NECK: Supple. LUNGS: Have decreased breath sounds. HEART: Normal S1 and S2. ABDOMEN: Soft, nontender. LABORATORY DATA: Reveals the patient's white count is 3.5, hemoglobin of 10, platelets of 127. Chemistries reveal a BUN of 22, creatinine of 1.6 and procalcitonin 0.39, and the urinalysis is noted. Peritoneal fluid reveals wbcs are 41. Repeat urine culture is gram-positive cocci. Review of orders reveals the patient is now off of antibiotics. ASSESSMENT AND PLAN: An 82-year-old female seen early this morning in room 576, bed 2 with diabetes mellitus, congestive heart failure, coronary artery disease, arteriovenous malformation, renal disease, chronic obstructive lung disease, pulmonary disease, pulmonary hypertension, cardiac cirrhosis hepatitis C and admitted with acute diastolic congestive heart failure on top of chronic congestive heart failure in a patient with echo 0n 11/21 which showed 70% ejection fraction and a history of healthcare-associated pneumonia, currently resolving based on CAT scan. Currently off of antibiotics, afebrile, while the patient is at risk for developing nosocomial infections. Yovany Otero MD
[2017-12-06] MEDS: Pantoprazole 40 mg EC Tab PO SCH (05:37)
[2017-12-06] MEDS: Levalbuterol 0.63 MG/3 ML Inhal Soln UD IH SCH ×3 (07:17→20:53)
[2017-12-06] MEDS: Insulin Lispro (humaLOG) MEDIUM Coverage SC SCH ×4 (08:15→21:38)
--- NOTE | 2017-12-06 08:41 | PN ---
DATE: 12/04/2017 SUBJECTIVE: Patient is an 82 years old, seen and examined, and states her abdominal pain is a little better but still belly seems to be distended, bilateral leg swelling. Complains of feeling weak and unable to sleep last night. PHYSICAL EXAMINATION: GENERAL: She is awake, alert, oriented. Able to communicate. VITAL SIGNS: She is afebrile, pulse 87, respirations 18, blood pressure 111/64. LUNGS: Bilateral fair airflow. No rhonchi or crackle. Decreased breath sounds at the bases. HEART: S1 and S2 audible. Regular rate control. ABDOMEN: Soft, slightly distended, but bowel sounds are positive. NEUROLOGICAL: She is awake and alert. Able to communicate. Bilateral leg, +4 edema. LABORATORY EXAM: Blood sugar is 173, peritoneal fluid lymphocyte is 90%. ASSESSMENT: 1. Cardiac cirrhosis, leading to ascites. 2. Bilateral legs, +4 edema. 3. Coronary artery disease, status post recent angioplasty. 5. Non-insulin dependent diabetes. 6. Chronic kidney disease. 7. Chronic anemia. 8. Thrombocytopenia. 9. Pulmonary hypertension. 10. Deconditioning and difficulty walking. PLAN: Patient is currently on diuretics. She has been started on spironolactone. She is on Maxipime. Continue her on aspirin. Not a candidate of Plavix. Continue on Protonix. Discussed with the patient's son by the bedside. Overall prognosis is poor because her cardiac function is deteriorating slowly. Over diuresis can lead to kidney failure. We will follow up electrolytes in a.m. Harsh Morataya MD
[2017-12-06] MEDS: Nystatin 100,000 Units/gm Topical Pow(15 gm) TOP SCH ×2 (10:35→17:26)
--- NOTE | 2017-12-06 11:22 | CP.PCM.PCO ---
Physician Communication Note - Physician Communication Note Physician Communication Note: + Cirrhotic Ascites/Needs HENRY
[2017-12-06 12:28] LABS: CALCIUM 7.9 mg/dL (8.4-10.5)
[2017-12-06] MEDS: metOLazone 2.5 MG TAB PO SCH (13:36)
--- NOTE | 2017-12-06 20:16 | PN ---
DATE: 12/06/2017 SUBJECTIVE: Seen and examined, lying in bed. Still has bilateral leg swelling since there was pressure applied in the lower legs. Leg swelling has improved; however, thighs are swollen too. She has fluid in her belly. Does complain of weakness and shortness of breath. PHYSICAL EXAMINATION: VITAL SIGNS: She is afebrile, pulse 59, respirations 18, blood pressure 118/58. LUNGS: Bilateral diffusely decreased breath sounds. HEART: S1 and S2 audible. ABDOMEN: Soft, distended with positive ascites. NEUROLOGICAL: She is awake, alert, oriented, communicative. LABORATORY EXAM: WBC is 3.5, hemoglobin 10, hematocrit 28, platelet of 127. Chemistry: Sodium 127, potassium 3.7, chloride 88, CO2 of 32, BUN 22, creatinine 1.6, blood sugar of 200. ASSESSMENT: 1. Cirrhosis of liver. 2. Ascites. 3. Congestive heart failure. 4. Hypertension. 5. Insulin-dependent diabetes status post paracentesis and had 3.4 liter fluid removed. PLAN: We will continue the patient on Lasix 40 twice a day, I will add metolazone and we will request Nephrology evaluation because of hyponatremia, needs careful management of her fluid levels. Reevaluate patient in a.m. Harsh Morataya MD
--- NOTE | 2017-12-06 23:15 | PN ---
DATE: 12/06/2017 SUBJECTIVE: The patient is in bed, in no acute distress, nontoxic, was seen earlier this morning. PHYSICAL EXAMINATION: VITAL SIGNS: Temperature is 98, blood pressure is 118/70, respiratory rate of 16. HEENT: Unremarkable. NECK: Supple. LUNGS: Have decreased breath sounds. HEART: Normal S1, S2. ABDOMEN: Soft, nontender. LABORATORY EXAMINATION: Reveals a WBC count of 3.5, hemoglobin of 10, platelets of 127. Chemistries reveals a BUN of 22, creatinine of 1.6. Urinalysis is noted. Peritoneal fluid is noted. Microbiology is reviewed. Review of orders reveals the patient to be off of antibiotics. ASSESSMENT AND PLAN: An 82-year-old female seen early this morning with a history of congestive heart failure, coronary artery disease, diabetes mellitus, arteriovenous malformation, renal disease, chronic obstructive lung disease, pulmonary disease, pulmonary hypertension, cardiac cirrhosis, zoster, hepatitis C, admitted with acute diastolic congestive heart failure on top of chronic congestive heart failure and echo in 11/2017, which showed an ejection fraction of 70% and a history of healthcare-associated pneumonia which is resolving on CAT scan and currently off of antibiotics, afebrile. We will follow with you. The patient is at risk for developing nosocomial infection. Yovany Otero MD
[2017-12-07] MEDS: Pantoprazole 40 mg EC Tab PO SCH (05:32)
[2017-12-07] MEDS: Levalbuterol 0.63 MG/3 ML Inhal Soln UD IH SCH ×3 (07:26→19:56)
[2017-12-07] MEDS: Insulin Lispro (humaLOG) MEDIUM Coverage SC SCH ×4 (08:16→21:38)
[2017-12-07 09:40] LABS: CALCIUM 7.7 mg/dL (8.4-10.5)
[2017-12-07] MEDS: metOLazone 2.5 MG TAB PO SCH (09:54)
[2017-12-07] MEDS: Nystatin 100,000 Units/gm Topical Pow(15 gm) TOP SCH ×2 (09:55→17:30)
--- NOTE | 2017-12-07 14:33 | PN ---
DATE: 12/06/2017 SUBJECTIVE: The patient is lying in bed. She feels better. There is less abdominal distention and less pedal edema. OBJECTIVE: VITAL SIGNS: Reveal temperature of 97.7, blood pressure 135/71, heart rate of 70. HEENT: Reveal sclerae to be white. Conjunctivae pink. NECK: Supple. CHEST: Reveal lungs to be clear. HEART: Exam reveals regular rate and rhythm. ABDOMEN; Distended with ascites, but appears to be decreasing in distention. EXTREMITIES: Show trace pedal edema which is also decreasing. DATA: Laboratory data reveal hemoglobin 10.1, which is stable; white blood cell count 3.5; platelet count of 127,000. Chemistries reveal BUN 22, creatinine 1.7. Sodium 125, blood sugar of 225. IMPRESSION: An 82-year-old female with multiple comorbidities including chronic kidney disease, chronic anemia, diabetes mellitus, history of congestive heart failure with cardiac cirrhosis and volume overload with ascites and pedal edema. She is also hyponatremic. RECOMMENDATIONS: 1. Follow electrolytes. 2. May need to decrease Lasix to 40 mg once a day from twice a day, continue Aldactone 50 mg b.i.d. The patient's long-term prognosis is poor. Her medications currently include Aldactone 50 mg b.i.d., Ambien 5 mg at bedtime, aspirin 81 mg once a day, Isordil 60 mg daily, Lasix 40 mg IV every 12 hours, amlodipine 10 mg daily, nystatin topical powder, pantoprazole 40 mg once a day, acetaminophen 650 mg every 6 hours as needed for pain, tramadol 50 mg every 6 hours as needed for pain, Xopenex, metolazone 2.5 mg p.o. daily and Zofran 4 mg IV daily. Sandoval Arizmendi MD
--- NOTE | 2017-12-07 17:01 | PN ---
DATE: 12/07/2017 SUBJECTIVE: The patient is an 82-year-old, seen and examined, lying in bed. Denies any chest pain. No shortness of breath. Has bilateral leg swelling. Has abdominal distention. Poor appetite. PHYSICAL EXAMINATION: VITAL SIGNS: She is afebrile, pulse 61, respiration 18, blood pressure 134/60. LUNGS: Bilateral diffuse vesicular breath sounds, more so in the bases. HEART: S1 and S2 audible. ABDOMEN: Soft, but slightly distended. No palpable discomfort. NEUROLOGICAL: She is awake, alert, oriented, able to communicate. LABORATORY DATA: Sodium 125, potassium 4.1, chloride 86, CO2 of 32, BUN 22, creatinine 1.7, blood sugar of 218. Urine is growing Gram-positive cocci. Blood cultures are negative. ASSESSMENT: 1. Cirrhotic ascites. 2. Cardiac cirrhosis. 3. Thrombocytopenia. 4. Coronary artery disease, status post angioplasty. 5. Status post paracentesis. 6. Insulin-dependent diabetes. 7. Pancytopenia. 8. Hyponatremia. PLAN: We will continue the patient on spironolactone. She is on aspirin 81 daily. Blood sugar is being monitored. She is on Lasix 40 every 12. We will continue that. We will also continue on metolazone. Awaiting Dr. Rodriguez's input for electrolyte imbalance. I spoke to Dr. Geovanni Fitch also thinking since this is going to be ongoing process. We are thinking to have Aspira catheter. I spoke to the family. There are pros and cons. She might get infection and peritonitis or she is going to be requiring intermittent paracentesis. Dr. Geovanni Fitch will discuss with the patient and they will finalize what to do and depending on that, we will make a disposition plan and discharge her in a.m. Harsh Morataya MD
[2017-12-07] MEDS: Nystatin 100,000 Units/ml Oral Susp 5 ml UD PO SCH ×2 (17:28→23:46)
[2017-12-07] MEDS ORDERED: Tolvaptan 15 MG TAB PO STA (19:55)
--- NOTE | 2017-12-07 21:56 | CP.PCM.PCO ---
Physician Communication Note - Physician Communication Note Physician Communication Note: Concur with medication regimen for now-Surgery not recommended/[facility]RY Needed
--- NOTE | 2017-12-08 02:00 | PN ---
DATE: 12/07/2017 SUBJECTIVE: Patient is in bed, in no acute distress, nontoxic, who is seen early this morning in 576, bed 2. PHYSICAL EXAMINATION: VITAL SIGNS: Temperature is 98, blood pressure is 120/70, respiratory rate of 16. HEENT: Unremarkable. NECK: Supple. LUNGS: Decreased breath sounds. HEART: Normal S1 and S2. ABDOMEN: Soft. LABORATORY DATA: Reveals a white count of 3.5, hemoglobin of 10. Chemistries are noted with a creatinine of 1.7. Urine culture is species and now gram-positive cocci. Dr. Arizmendi's note is reviewed. ASSESSMENT AND PLAN: This is an 82-year-old female with history of congestive heart failure, coronary artery disease, diabetes mellitus, arteriovenous malformation, renal disease, chronic obstructive lung disease, pulmonary disease, pulmonary hypertension, cardiac cirrhosis, history of hepatitis C, history of Zoster, admitted with acute diastolic congestive heart failure on top of chronic congestive heart failure. Currently off of antibiotics, afebrile. Patient is at risk for developing nosocomial infection. Yovany Otero MD
[2017-12-08] MEDS: Nystatin 100,000 Units/ml Oral Susp 5 ml UD PO SCH ×3 (05:48→17:06)
[2017-12-08] MEDS: Pantoprazole 40 mg EC Tab PO SCH (05:48)
--- NOTE | 2017-12-08 06:41 | CON ---
DATE: 12/07/2017 REASON FOR CONSULTATION: Chronic kidney disease stage IV, hyponatremia. HISTORY OF PRESENTING ILLNESS: An 82-year-old lady known to me from multiple prior evaluations. The patient was admitted because of complaints of increased abdominal girth, shortness of breath, dyspnea on exertion. Also complaining of bilateral lower extremity edema. Her Lasix was doubled as outpatient. Metolazone 2.5 mg daily was added. But, she was having increased difficulties, so she was brought into the hospital. Ultrasound showed increased ascitic fluid. The patient had a paracentesis done. Consultation is requested for persistent hyponatremia and chronic kidney disease stage IV. PAST MEDICAL AND SURGICAL HISTORY: NIDDM, hypertension, CAD, PTCA and stents, cardiac cirrhosis, thrombocytopenia, GI bleed secondary to Dieulafoy lesion, recurrent GI bleed episodes because of multiple AVMs, history of partial right hemicolectomy, COPD, recent pneumonia, now with ascites. FAMILY HISTORY: Noncontributory. SOCIAL HISTORY: No smoking, no alcohol use, no IV drug abuse. ALLERGIES: SHELLFISH. CURRENT MEDICATIONS: List reviewed. REVIEW OF SYSTEMS: All systems are reviewed, pertinent positives as mentioned in history of presenting illness, rest unremarkable. PHYSICAL EXAMINATION: GENERAL: Elderly lady sitting in chair in mild respiratory distress. VITAL SIGNS: Blood pressure 134/60, heart rate 63, respiratory rate 18, temperature 97.9. HEENT: Normocephalic, atraumatic, positive pallor. NECK: Supple, no JVD. LUNGS: Bilateral rhonchi, bilateral equal air entry, crackles right side, dullness left side. CARDIAC: S1 and S2, regular rate and rhythm, no murmur, no rub. ABDOMEN: Distended, soft, positive fluid thrill, bowel sounds present. EXTREMITIES: 2+ pitting edema of the lower extremities. INTAKE AND OUTPUT: Not charted. LABORATORY DATA: WBC 3.5, hemoglobin 10, hematocrit 28.5, platelets 127. Sodium 125, potassium 4.1, chloride 86, CO2 32, BUN 22, creatinine 1.7, glucose 225, calcium 7.7, uric acid 9.0. Urinalysis; yellow, cloudy, pH 6, specific gravity 1.020, protein trace, glucose negative, ketones negative, blood small, leukocyte esterase moderate. Paracentesis consistent with transudative fluid. Urine culture, gram-positive cocci. CURRENT MEDICATIONS: Aldactone 50 b.i.d., Ambien, insulin, Imdur, furosemide, amlodipine 10, nystatin, Protonix 40, Tylenol, tramadol, Xopenex, Zaroxolyn 2.5 daily. ASSESSMENT AND PLAN: 1. Hyponatremia, suspect dilutional, total body volume overload, congestive heart failure. 2. Stable chronic kidney disease stage IV. 3. Coronary artery disease with percutaneous transluminal coronary angioplasty and stent. 4. Cardiac cirrhosis. 5. New ascites. 6. Anemia of chronic disease. 7. Recent pneumonia. PLAN: 1. Tolvaptan 15 mg. 2. Continue diuresis. 3. Monitor urine output. 4. Monitor electrolytes. Thank you for the courtesy of this consultation. Frieda Rodriguez MD
[2017-12-08] MEDS: Levalbuterol 0.63 MG/3 ML Inhal Soln UD IH SCH ×3 (07:12→20:45)
[2017-12-08] MEDS: Insulin Lispro (humaLOG) MEDIUM Coverage SC SCH ×4 (08:02→22:36)
[2017-12-08 08:17] LABS: CALCIUM 8.3 mg/dL (8.4-10.5)
[2017-12-08] MEDS: Tolvaptan 15 MG TAB PO SCH (09:36)
[2017-12-08] MEDS: metOLazone 2.5 MG TAB PO SCH (09:48)
[2017-12-08] MEDS: Nystatin 100,000 Units/gm Topical Pow(15 gm) TOP SCH ×2 (09:49→17:12)
--- NOTE | 2017-12-08 11:55 | CP.PCM.PN ---
Subjective - Date & Time of Evaluation Date of Evaluation: 12/08/17 Time of Evaluation: 11:51 - Subjective Subjective: Cardiac cirrhossis-Severe Rec paracentesis vs catheter(Very high risk bleeding-infection) Hospice- cannot take pt home At Present [facility] not accepting pt back R Rhys RODRIGUEZ FACS Objective - Vital Signs/Intake and Output Vital Signs (last 24 hours): Temp Pulse Resp BP Pulse Ox 97.9 F 83 20 126/67 99 12/08/17 06:00 12/08/17 06:00 12/08/17 06:00 12/08/17 09:48 12/08/17 06:00 Intake and Output: 12/08/17 12/08/17 06:59 18:59 Output Total 85 850 Balance -85 -850 - Medications Medications: Current Medications Acetaminophen (Tylenol 325mg Tab) 650 mg PO Q6H PRN PRN Reason: Pain, Mild (1-3) Amlodipine Besylate (Norvasc) 10 mg PO DAILY [facility] Last Admin: 12/08/17 09:48 Dose: 10 mg Aspirin (Aspirin Chewable) 81 mg PO DAILY [facility] Last Admin: 12/08/17 09:48 Dose: 81 mg Furosemide (Lasix) 40 mg IVP BID [facility] Last Admin: 12/08/17 09:36 Dose: 40 mg Insulin Human Lispro (Humalog Med) 0 units SC ACHS [facility] PRN Reason: Protocol Last Admin: 12/08/17 08:02 Dose: 1 unit Isosorbide Mononitrate (Imdur) 60 mg PO DAILY [facility] Last Admin: 12/08/17 09:48 Dose: 60 mg Levalbuterol HCl (Xopenex) 0.63 mg IH TIDRESP [facility] Last Admin: 12/08/17 07:12 Dose: 0.63 mg Metolazone (Zaroxolyn) 2.5 mg PO DAILY [facility] Last Admin: 12/08/17 09:48 Dose: 2.5 mg Nystatin (Nystop Topical Powder) 0 gm TOP BID [facility] Last Admin: 12/08/17 09:49 Dose: 1 appful Nystatin (Nystatin Oral Susp) 5 ml PO Q6 [facility] Last Admin: 12/08/17 05:48 Dose: 5 ml Ondansetron HCl (Zofran Inj) 4 mg IVP Q6H PRN PRN Reason: Nausea/Vomiting Pantoprazole Sodium (Protonix Ec Tab) 40 mg PO 0630 [facility] Last Admin: 12/08/17 05:48 Dose: 40 mg Spironolactone (Aldactone) 50 mg PO BID [facility] Last Admin: 12/08/17 09:48 Dose: 50 mg Tolvaptan (Samsca) 15 mg PO DAILY [facility] Stop: 12/09/17 19:51 Last Admin: 12/08/17 09:36 Dose: 15 mg Tramadol HCl (Ultram) 50 mg PO Q6H PRN PRN Reason: Pain, severe (8-10) Last Admin: 12/06/17 17:25 Dose: 50 mg Tramadol HCl (Ultram) 50 mg PO Q8 [facility] Last Admin: 12/08/17 05:48 Dose: 50 mg Zolpidem Tartrate (Ambien) 5 mg PO HS PRN; Protocol PRN Reason: Insomnia Last Admin: 12/07/17 23:46 Dose: 5 mg - Labs Labs: 12/05/17 06:30 12/08/17 07:00 PT 13.9 SECONDS (9.4-12.5) H 11/30/17 07:51 INR 1.20 (0.93-1.08) H 11/30/17 07:51 APTT 27.3 Seconds (25.1-36.5) 11/30/17 07:51
--- NOTE | 2017-12-08 13:05 | PN ---
DATE: 12/08/2017 SUBJECTIVE: The patient is 82 years old, seen and examined, doing well. She was able to sleep last night. Has some abdominal discomfort, bilateral leg swelling. PHYSICAL EXAMINATION: VITAL SIGNS: She is afebrile, pulse 83, respirations 20, blood pressure 126/67. LUNGS: Bilateral fair airflow. HEART: S1 and S2 audible. ABDOMEN: Soft with some ascites. No palpable discomfort. EXTREMITIES: Bilateral leg, +3 edema. LABORATORY EXAM: There is no new lab available today except for sodium 126, potassium 4.1, chloride 85, CO2 of 35, BUN 22, creatinine 1.7, blood sugar 201, TSH is 9.9. Urine shows gram-positive positive cocci, sensitivity to follow. ASSESSMENT: 1. Cirrhotic ascites. 2. Coronary artery disease. 3. Hypertension. 4. Hyperlipidemia. 5. Hypothyroidism. 6. Insulin-dependent diabetes. PLAN: We will continue the patient on spironolactone. She is on aspirin 81 daily. Continue isosorbide. She is on Lasix 40 every 12, cut down to once a day. Monitor her electrolytes. Request for physical therapy. Discussed with the . The patient's disease is progressive. She is not being accepted in [facility] and says he cannot take care of her at home. I will discuss about palliative care with family and we will make further disposition. Harsh Morataya MD
--- NOTE | 2017-12-08 13:52 | PN ---
DATE: 12/08/2017 SUBJECTIVE: The patient is in bed, in no acute distress, nontoxic. PHYSICAL EXAMINATION: VITAL SIGNS: Temperature is 97, blood pressure is 126/60, respiratory rate of 20, heart rate of 63. HEENT: Unremarkable. NECK: Supple. LUNGS: Decreased breath sounds. HEART: Normal S1, S2. ABDOMEN: Soft, nontender. LABORATORY EXAMINATION: Reveals a white count of 3.5, hemoglobin of 10, and platelets of 127. Coagulation is noted. Chemistries reveal a BUN of 22, creatinine of 1.7. Urinalysis is noted and microbiology reveals cultures are reviewed. ASSESSMENT AND PLAN: An 82-year-old female seen earlier today in 576, bed 2 with history of congestive heart failure, coronary artery disease, diabetes mellitus, arteriovenous malformation, renal disease, chronic obstructive lung disease, pulmonary disease, hypertension, cardiac cirrhosis, hepatitis C, history of zoster. Admitted with acute diastolic congestive heart failure on top of chronic congestive heart failure. Currently off antibiotics, afebrile. The patient is at risk for developing nosocomial infections. Dr. Zay Joiner's communication report is reviewed. Yovany Otero MD
--- NOTE | 2017-12-08 14:13 | PN ---
DATE: 12/08/2017 SUBJECTIVE: The patient is currently seen, appearing mildly uncomfortable, lying in bed. She remains edematous. She has ascites, but appears to be in no acute distress. MEDICATIONS: Medication list reviewed. The patient is on Aldactone, Ambien, aspirin, sliding scale insulin, Imdur, Lasix, Norvasc, nystatin, Protonix, Samsca, Tylenol p.r.n., Ultram, Xopenex, Zaroxolyn and Zofran p.r.n. Intake/output intake not charted. Output 850 mL. OBJECTIVE : VITAL SIGNS: Blood pressure 126/67, temperature 97.9, pulse of 83 with respiratory rate of 20, pulse ox is 99%. HEENT: Exam shows her to be normocephalic, atraumatic. Conjunctiva are pale. Sclerae are nonicteric. NECK: Supple. No neck vein distention. CHEST: Clear to auscultation and percussion. Slight decreased breath sounds at the bases. CARDIOVASCULAR: Shows a regular rate and rhythm with AI/MR/TR. No S3. No S4. No rub. ABDOMEN: Soft. Bowel sounds normal. Positive distention. Positive fluid wave. No rebound or guarding. EXTREMITIES: Show 2+ pitting edema of her lower extremity. No cyanosis or clubbing. LABORATORY DATA AND IMAGING: Abdominal CT scan shows evidence for cirrhosis with ascites and subcutaneous edema. Labs, CBC, white blood cell count 3.5, hemoglobin 10.1 with a platelet count of 127,000. Chemistry show a sodium of 126. This is slightly below her baseline low sodium levels. Potassium 4.1, chloride 85 with a CO2 of 35, BUN is 22 which is in the low range of her baseline with a creatinine of 1.7 which is in the low range of her baseline. Glucose is 174. Calcium is 8.3. Last phosphorus level was 3.0-. Last magnesium level was 2.1. Liver enzymes show mildly elevated liver enzymes. Her total bilirubin is 0.9. Urine showed 10-15 red blood cells and TNTC white blood cells per high-power field with many bacteria. Urine cultures are positive for gram-positive cocci. Blood cultures were negative. Urine cultures were less than 10,000. ASSESSMENT: 1. Hyponatremia, likely dilutional in nature secondary to the patient being grossly volume overloaded with ascites and edema. The patient will continue on diuretic therapy. The patient also received a dose of tolvaptan yesterday and will receive another dose today and perhaps again tomorrow. This will assist in diuresis and will help to raise her sodium level to a safer range. I will obtain urine sodium, urine osmolality and a uric acid level. I will check her TSH level and T4 level. 2. Stable chronic kidney disease stage III. 3. History of atherosclerotic heart disease, status post percutaneous transluminal coronary artery stent, appears to be stable. 4. History of aortic insufficiency/mitral regurgitation/tricuspid regurgitation. History of pulmonary hypertension. Ejection fraction in the past was 71%. 5. History of partial colectomy for gastrointestinal bleeding. 6. History of anemia likely secondary to chronic kidney disease. 7. Past history of mild hyperkalemia, treated in the past successfully with Kayexalate. 8. History of hypertension. Blood pressure was controlled on present medical therapy. 9. History of cardiac cirrhosis. 10. History of recent pneumonia. 11. DNR status noted. PLAN: 1. Continue tolvaptan for a maximum of three doses. 2. Attempt to diurese the patient, need accurate I's and O's. 3. No choice but to continue Lasix, spironolactone and metolazone as the patient is grossly volume overloaded. Continue to monitor labs on a daily basis. 4. The patient's long-term prognosis is poor. Agree with DNR status. Ga Braden MD
[2017-12-09] MEDS: Nystatin 100,000 Units/ml Oral Susp 5 ml UD PO SCH ×4 (04:11→17:06)
[2017-12-09] MEDS: Pantoprazole 40 mg EC Tab PO SCH (06:19)
[2017-12-09] MEDS: Levalbuterol 0.63 MG/3 ML Inhal Soln UD IH SCH ×2 (07:24→13:26)
[2017-12-09] MEDS: Insulin Lispro (humaLOG) MEDIUM Coverage SC SCH ×4 (07:55→22:13)
[2017-12-09 07:59] LABS: BASO # 0.03 K/mm3 (0.0-2.0); BASO % 0.8 % (0.0-3.0); EOS # 0.1 (0.0-0.7); EOS % 1.3 % (1.5-5.0); GRAN # 2.11 (1.4-6.5); GRAN % 52.9 % (50.0-68.0); HEMOGLOBIN 10.2 g/dL (12.0-16.0); LYMPH # 1.1 (1.2-3.4); LYMPH % 27.4 % (22.0-35.0); MEAN CELL VOLUME 93.1 fl (80.0-105.0); MEAN CORPUSCULAR HGB CONC 34.3 g/dl (31.0-37.0); MONO # 0.7 (0.1-0.6); MONO % 17.6 % (1.0-6.0); RBC 3.19 10^6/uL (3.5-6.1); RED CELL DISTRIBUTION WIDTH 14.4 % (11.5-14.5)
[2017-12-09 08:06] LABS: INR 1.23 (0.93-1.08); PARTIAL THROMBOPLASTIN TIME 29.6 Seconds (25.1-36.5); PROTHROMBIN TIME 14.2 SECONDS (9.4-12.5)
[2017-12-09 08:09] LABS: ALB/GLOB RATIO 1.1 (1.1-1.8); ALBUMIN 2.5 g/dL (3.0-4.8); CALCIUM 8.1 mg/dL (8.4-10.5); URIC ACID 9.7 mg/dL (2.5-6.2)
[2017-12-09] MEDS: metOLazone 2.5 MG TAB PO SCH (09:56)
[2017-12-09] MEDS: Nystatin 100,000 Units/gm Topical Pow(15 gm) TOP SCH ×2 (09:58→17:08)
[2017-12-09] MEDS: Tolvaptan 15 MG TAB PO SCH (09:58)
--- NOTE | 2017-12-09 14:12 | PN ---
DATE: 12/09/2017 SUBJECTIVE: The patient is in bed, no acute distress. PHYSICAL EXAMINATION: VITAL SIGNS: On exam, temperature is 98, blood pressure is 129/60, respiratory rate of 18, heart rate of 86. HEENT: Examination of the HEENT is unremarkable. NECK: Supple. LUNGS: Have decreased breath sounds. HEART: Normal S1, S2. ABDOMEN: Soft, nontender. LABORATORY DATA: Laboratory examination reveals a white count of 4, hemoglobin of 10, platelets of 147. BUN of 23, creatinine of 1.7. Urinalysis is noted. Review of orders reveals the patient to be off of antibiotics at this point. ASSESSMENT AND PLAN: An 82-year-old female seen earlier this morning in room 576, bed 2 with congestive heart failure, coronary artery disease, diabetes mellitus, arteriovenous malformation, renal disease, chronic obstructive lung disease, pulmonary disease, hypertension, cardiac cirrhosis, hepatitis C, history of zoster, who initially is admitted with acute diastolic congestive heart failure on top of chronic congestive heart failure. Currently, now off of antibiotics, afebrile. The patient is at risk for developing nosocomial infections. Yovany Otero MD
--- NOTE | 2017-12-09 17:47 | PN ---
DATE: 12/09/2017 FOLLOWUP NOTE HISTORY OF PRESENT ILLNESS: Ms. Winters is an 82-year-old female, admitted to the hospital with abdominal distention. She has cirrhosis of liver with ascites. Ascitic tap was done. She was admitted with generalized weakness, shortness of breath, increasing ascites. She has complicated past medical history with history of GI bleed; severe iron-deficiency anemia; chronic kidney disease stage 3, which is stable. 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 ALLERGIES: ALLERGIC TO SHELLFISH. MEDICATIONS: List as per MAR reviewed. SOCIAL HISTORY: A resident of [facility]. REVIEW OF SYSTEMS: As per HPI. Rest of 12-point review of systems reviewed negative. PHYSICAL EXAMINATION: GENERAL: She is awake, alert, oriented, communicative. VITAL SIGNS: Afebrile, temperature 98.7; heart rate 84 per minute, respiratory rate 15 per minute, blood pressure 100/70. HEENT: Pallor positive. NECK: No lymphadenopathy. CHEST: Air entry present and equal bilateral. No added sounds. CARDIOVASCULAR: S1, S2 normal. No murmur. No gallop. ABDOMEN: Distended, nontender. EXTREMITIES: Bilateral 1+ edema, legs. NEUROLOGIC: Awake, alert, oriented and focal sensorimotor deficit. LABORATORY DATA: Sodium 129, potassium 4, creatinine 1.7. Uric acid 9.7, AST 41, ALT 61. White count 4, hemoglobin 10.2, hematocrit 29.7, platelets 147. MEDICATIONS: Reviewed. ASSESSMENT: 1. Cirrhosis of liver. 2. Hepatitis. 3. Cardiac cirrhosis. 4. Chronic kidney disease stage 3. 5. Anemia. 6. Leukopenia. PLAN: We will continue the current regimen. Continue antihypertensive, Norvasc 10 mg daily. Continue Pepcid IV, cardiac medication Imdur 60 mg daily. Continue bronchodilators. Aldactone 50 mg p.o. b.i.d., Ultram for pain. Thank you, Dr. Morataya for allowing us to participate in Ms. Winters care. Cathleen Hampton MD [facility] # [id number]
[2017-12-10] MEDS: Nystatin 100,000 Units/ml Oral Susp 5 ml UD PO SCH ×5 (00:59→23:42)
[2017-12-10] MEDS: Pantoprazole 40 mg EC Tab PO SCH (06:15)
[2017-12-10] MEDS: Levalbuterol 0.63 MG/3 ML Inhal Soln UD IH SCH ×3 (07:27→20:40)
[2017-12-10] MEDS: Insulin Lispro (humaLOG) MEDIUM Coverage SC SCH ×4 (07:51→23:46)
[2017-12-10] MEDS: metOLazone 2.5 MG TAB PO SCH (09:53)
[2017-12-10] MEDS: Nystatin 100,000 Units/gm Topical Pow(15 gm) TOP SCH ×2 (09:54→17:39)
--- NOTE | 2017-12-10 13:45 | DS ---
HISTORY OF PRESENT ILLNESS: The patient is 82 years old, seen and examined, lying in bed, seems to be comfortable. Mild shortness of breath. Still has bilateral leg swelling. Has abdominal distention, but not giving her symptoms. The patient was admitted because of increasing shortness of breath secondary to dense ascites, bilateral leg swelling. PHYSICAL EXAMINATION: VITAL SIGNS: The patient is afebrile, pulse 101, respirations 18, blood pressure 130/70. LUNGS: Bilateral decreased breath sound at bases. HEART: S1 and S2 audible. ABDOMEN: Soft with ascites. NEUROLOGICAL: The patient is awake and alert, able to communicate. EXTREMITIES: Bilateral legs, +2 edema. LABORATORY EXAM: The hemoglobin yesterday 10.2, hematocrit 29.7. Blood sugar is 237. ASSESSMENT: 1. Cirrhosis, liver. 2. Cardiac cirrhosis. 3. Pulmonary hypertension. 4. Coronary artery disease, status post angioplasty. 5. Cirrhotic ascites, status post paracentesis. 6. Chronic anemia. 7. Thrombocytopenia. 8. Deconditioning and difficulty walking. PLAN: [facility] are in the process of making arrangement for subacute rehab. As soon as arrangement is made, she will be discharged later on. Harsh Morataya MD
--- NOTE | 2017-12-10 13:53 | PN ---
DATE: 12/10/2017 SUBJECTIVE: The patient is seen sitting in chair. She is awake. She is alert. She is feeling much better. She has less shortness of breath. She denies any cough. PHYSICAL EXAMINATION: GENERAL: Elderly lady, sitting in bed. VITAL SIGNS: Blood pressure 130/70, heart rate 101, respiratory rate 18, temperature 97.8. HEENT: Normocephalic, atraumatic, positive pallor. NECK: Supple. No JVD. LUNGS: Bilateral equal air entry, bilateral equal expansion, basal rales. CARDIAC: S1 and S2, regular rate and rhythm, no murmur, no rub. ABDOMEN: Distended, soft, nontender, bowel sounds present. EXTREMITIES: 2+ pitting edema of the lower extremities. INTAKE AND OUTPUT: 600/800. LABORATORY DATA: WBC 4, hemoglobin 10, hematocrit 30, platelets 147. Sodium 129, potassium 4, chloride 84, CO2 of 38, BUN 23, creatinine 1.7, glucose 275, calcium 8.1, uric acid 9.7, AST 41, ALT 61, albumin 2.5, corrected calcium is 9.1. Urine culture, gram-positive cocci. CURRENT MEDICATIONS: Aldactone 50 b.i.d., Ambien 5, aspirin 81, Imdur 60, Lasix 40 IV b.i.d., amlodipine 10, Protonix, Tylenol, Ultram, Zaroxolyn 2.5, Zofran. ASSESSMENT: 1. Hyponatremia, syndrome of inappropriate antidiuretic hormone in the setting of congestive heart failure, ascites, edema. 2. 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 3. Coronary artery disease, history of percutaneous transluminal coronary angioplasty and stent. 4. Anemia, multifactorial. 5. History of recurrent gastrointestinal bleed, history of partial colectomy, history of arteriovenous malformations. 6. Hypertension. 7. Cardiac cirrhosis. 8. Recent pneumonia. PLAN: 1. The patient had a good response to tolvaptan. She reports put out 3800 mL of urine yesterday. I would continue tolvaptan for now. 2. Continue diuresis. 3. Continue other current management. 4. Monitor urine output. 5. Monitor sodium. Frieda Rodriguez, MD
[2017-12-10] MEDS: Tolvaptan 15 MG TAB PO SCH (15:04)
--- NOTE | 2017-12-10 21:08 | CP.PCM.PN ---
Subjective - Date & Time of Evaluation Date of Evaluation: 12/10/17 Time of Evaluation: 10:50 - Subjective Subjective: Comfortably resting in bed, no fevers, no diarrhea, no cough, no SOB at rest. Objective - Vital Signs/Intake and Output Vital Signs (last 24 hours): Temp Pulse Resp BP Pulse Ox 97.8 F 101 H 18 130/70 95 12/10/17 06:00 12/10/17 06:00 12/10/17 06:00 12/10/17 06:00 12/10/17 06:00 Intake and Output: 12/10/17 12/10/17 06:59 18:59 Intake Total 600 Output Total 800 Balance -200 - Medications Medications: Current Medications Acetaminophen (Tylenol 325mg Tab) 650 mg PO Q6H PRN PRN Reason: Pain, Mild (1-3) Amlodipine Besylate (Norvasc) 10 mg PO DAILY [facility] Last Admin: 12/09/17 09:56 Dose: 10 mg Aspirin (Aspirin Chewable) 81 mg PO DAILY [facility] Last Admin: 12/09/17 09:56 Dose: 81 mg Furosemide (Lasix) 40 mg IVP BID [facility] Last Admin: 12/09/17 17:07 Dose: 40 mg Insulin Human Lispro (Humalog Med) 0 units SC ACHS [facility] PRN Reason: Protocol Last Admin: 12/10/17 07:51 Dose: 1 unit Isosorbide Mononitrate (Imdur) 60 mg PO DAILY [facility] Last Admin: 12/09/17 09:56 Dose: 60 mg Levalbuterol HCl (Xopenex) 0.63 mg IH TIDRESP [facility] Last Admin: 12/10/17 07:27 Dose: 0.63 mg Metolazone (Zaroxolyn) 2.5 mg PO DAILY [facility] Last Admin: 12/09/17 09:56 Dose: 2.5 mg Nystatin (Nystop Topical Powder) 0 gm TOP BID [facility] Last Admin: 12/09/17 17:08 Dose: 1 appful Nystatin (Nystatin Oral Susp) 5 ml PO Q6 [facility] Last Admin: 12/10/17 05:45 Dose: Not Given Ondansetron HCl (Zofran Inj) 4 mg IVP Q6H PRN PRN Reason: Nausea/Vomiting Pantoprazole Sodium (Protonix Ec Tab) 40 mg PO 0630 [facility] Last Admin: 12/10/17 06:15 Dose: 40 mg Spironolactone (Aldactone) 50 mg PO BID [facility] Last Admin: 12/09/17 17:07 Dose: 50 mg Tramadol HCl (Ultram) 50 mg PO Q6H PRN PRN Reason: Pain, severe (8-10) Last Admin: 12/06/17 17:25 Dose: 50 mg Tramadol HCl (Ultram) 50 mg PO Q8 [facility] Last Admin: 12/10/17 05:45 Dose: Not Given Zolpidem Tartrate (Ambien) 5 mg PO HS PRN; Protocol PRN Reason: Insomnia Last Admin: 12/09/17 21:17 Dose: 5 mg - Labs Labs: 12/09/17 07:00 12/09/17 07:00 PT 14.2 SECONDS (9.4-12.5) H 12/09/17 07:00 INR 1.23 (0.93-1.08) H 12/09/17 07:00 APTT 29.6 Seconds (25.1-36.5) 12/09/17 07:00 - Constitutional Appears: Chronically Ill - Head Exam Head Exam: NORMAL INSPECTION - Neck Exam Neck Exam: absent: Meningismus - Respiratory Exam Respiratory Exam: Decreased Breath Sounds - Cardiovascular Exam Cardiovascular Exam: +S1, +S2 - GI/Abdominal Exam GI & Abdominal Exam: Soft. absent: Tenderness Assessment and Plan - Assessment and Plan (Free Text) Plan: Assessment S/P acute on chronic CHF S/P multifocal HCAP on top of acute on chronic CHF, S/P treatment with antibiotics consider reactive airway disease HTN DM CAD S/P PCI GI AV malformation with history of GI bleeding chronic renal failure COPD history of UTI Plan will continue to monitor the patient off antibiotics since she is at risk for nosocomial infections
[2017-12-11] MEDS: Nystatin 100,000 Units/ml Oral Susp 5 ml UD PO SCH ×2 (06:25→11:51)
[2017-12-11] MEDS: Pantoprazole 40 mg EC Tab PO SCH (06:25)
[2017-12-11] MEDS: Levalbuterol 0.63 MG/3 ML Inhal Soln UD IH SCH ×2 (07:30→13:39)
[2017-12-11] MEDS: Insulin Lispro (humaLOG) MEDIUM Coverage SC SCH ×3 (08:04→17:09)
--- NOTE | 2017-12-11 08:39 | CP.PCM.PCO ---
Physician Communication Note - Physician Communication Note Physician Communication Note: Awaiting discharge
[2017-12-11 08:48] VITALS: PULSE 84; RESP 20; TEMP 98; O2SAT 96
[2017-12-11] MEDS: Tolvaptan 15 MG TAB PO SCH (10:14)
[2017-12-11] MEDS: Nystatin 100,000 Units/gm Topical Pow(15 gm) TOP SCH (10:15)
[2017-12-11] MEDS: metOLazone 2.5 MG TAB PO SCH (10:15)
--- NOTE | 2017-12-11 12:50 | PN ---
DATE: 12/11/2017 SUBJECTIVE: The patient is 82 years old, seen and examined, sitting in chair, seems to be comfortable. She has slight abdominal distention, bilateral leg edema. No chest pain. No shortness of breath. Eating fair. PHYSICAL EXAMINATION: VITAL SIGNS: She is afebrile, pulse 84, respirations 20, blood pressure 115/58. LUNGS: Bilateral fair airflow, decreased at bases. HEART: S1 and S2 audible. ABDOMEN: Soft, slightly distended. EXTREMITIES: Bilateral leg, +2 edema. NEUROLOGIC: Otherwise, neurologically, she is nonfocal, awake, alert, oriented, able to ambulate. Complained of generalized weakness. LABORATORY EXAM: Blood sugar is 269. ASSESSMENT: 1. Abdominal distention secondary to cirrhotic ascites. 2. Cardiac cirrhosis. 3. Pulmonary hypertension. 4. Coronary artery disease, status post multiple angioplasty. 5. History of gastrointestinal bleed with arteriovenous malformation, status post right hemicolectomy. 6. Insulin-dependent diabetes. 7. Thrombocytopenia. 8. Hyponatremia. PLAN: Currently, the patient is on spironolactone. Continue her on aspirin. She is on Lasix 40 every 12. She is on Norvasc. Might be able to change to Bystolic since the patient already has leg edema, Norvasc might aggravate her leg edema. I will order for chemistry in the a.m. [employer] are making arrangement to transfer the patient from short term rehab to long-term placement in [facility]. Harsh Morataya MD
--- NOTE | 2017-12-11 16:35 | CP.PCM.PN ---
Subjective - Date & Time of Evaluation Date of Evaluation: 12/11/17 Time of Evaluation: 10:55 - Subjective Subjective: Comfortable in bed, no fevers. Objective - Vital Signs/Intake and Output Vital Signs (last 24 hours): Temp Pulse Resp BP Pulse Ox 98 F 84 20 145/72 96 12/11/17 06:00 12/11/17 06:00 12/11/17 06:00 12/11/17 06:00 12/11/17 06:00 - Medications Medications: Current Medications Acetaminophen (Tylenol 325mg Tab) 650 mg PO Q6H PRN PRN Reason: Pain, Mild (1-3) Amlodipine Besylate (Norvasc) 10 mg PO DAILY [facility] Last Admin: 12/10/17 09:53 Dose: 10 mg Aspirin (Aspirin Chewable) 81 mg PO DAILY [facility] Last Admin: 12/10/17 09:53 Dose: 81 mg Furosemide (Lasix) 40 mg IVP BID [facility] Last Admin: 12/10/17 17:31 Dose: 40 mg Insulin Human Lispro (Humalog Med) 0 units SC ACHS [facility] PRN Reason: Protocol Last Admin: 12/11/17 08:04 Dose: 1 unit Isosorbide Mononitrate (Imdur) 60 mg PO DAILY [facility] Last Admin: 12/10/17 09:52 Dose: 60 mg Levalbuterol HCl (Xopenex) 0.63 mg IH TIDRESP [facility] Last Admin: 12/11/17 07:30 Dose: 0.63 mg Metolazone (Zaroxolyn) 2.5 mg PO DAILY [facility] Last Admin: 12/10/17 09:53 Dose: 2.5 mg Nystatin (Nystop Topical Powder) 0 gm TOP BID [facility] Last Admin: 12/10/17 17:39 Dose: Not Given Nystatin (Nystatin Oral Susp) 5 ml PO Q6 [facility] Last Admin: 12/11/17 06:25 Dose: 5 ml Ondansetron HCl (Zofran Inj) 4 mg IVP Q6H PRN PRN Reason: Nausea/Vomiting Pantoprazole Sodium (Protonix Ec Tab) 40 mg PO 0630 [facility] Last Admin: 12/11/17 06:25 Dose: 40 mg Spironolactone (Aldactone) 50 mg PO BID [facility] Last Admin: 12/10/17 17:30 Dose: 50 mg Tolvaptan (Samsca) 15 mg PO DAILY [facility] Stop: 12/12/17 13:31 Last Admin: 12/10/17 15:04 Dose: 15 mg Tramadol HCl (Ultram) 50 mg PO Q6H PRN PRN Reason: Pain, severe (8-10) Last Admin: 12/06/17 17:25 Dose: 50 mg Tramadol HCl (Ultram) 50 mg PO Q8 [facility] Last Admin: 12/11/17 06:27 Dose: 50 mg Zolpidem Tartrate (Ambien) 5 mg PO HS PRN; Protocol PRN Reason: Insomnia Last Admin: 12/10/17 22:19 Dose: 5 mg - Labs Labs: 12/09/17 07:00 12/09/17 07:00 PT 14.2 SECONDS (9.4-12.5) H 12/09/17 07:00 INR 1.23 (0.93-1.08) H 12/09/17 07:00 APTT 29.6 Seconds (25.1-36.5) 12/09/17 07:00 - Constitutional Appears: Non-toxic, Chronically Ill - Head Exam Head Exam: NORMAL INSPECTION - Respiratory Exam Respiratory Exam: Decreased Breath Sounds - Cardiovascular Exam Cardiovascular Exam: +S1, +S2 - GI/Abdominal Exam GI & Abdominal Exam: Soft. absent: Tenderness Assessment and Plan - Assessment and Plan (Free Text) Plan: Assessment S/P acute on chronic CHF S/P multifocal HCAP on top of acute on chronic CHF, S/P treatment with antibiotics consider reactive airway disease HTN DM CAD S/P PCI GI AV malformation with history of GI bleeding chronic renal failure COPD history of UTI Plan will continue to monitor the patient off antibiotics since she is at risk for hospital-acquired infections
[2017-12-11 17:10] VITALS: BP 104/59
--- NOTE | 2017-12-11 18:44 | PN ---
DATE: 12/11/2017 SUBJECTIVE: The patient is currently seen, eyes closed, lying in bed. She appears comfortable. She is responsive to verbal communication. She remains edematous. She has ascites, but appears to be in no acute distress. MEDICATIONS: Medication list reviewed. The patient is on Aldactone, Ambien, aspirin, Humalog, Imdur, Lasix, Norvasc, nystatin, Protonix, tolvaptan, Tylenol, Ultram, Xopenex, Zaroxolyn and Zofran p.r.n. PHYSICAL EXAMINATION: INTAKE AND OUTPUT: Last intake was 600 and output was 800 done on 12/10. VITAL SIGNS: Blood pressure 115/58, temperature 98 degrees, respiratory rate is 20 with a pulse of 84. HEENT: Shows her to be normocephalic, atraumatic. Conjunctivae remain pale. Sclerae are nonicteric. NECK: Supple. No neck vein distention. CHEST: Clear to auscultation and percussion with slight decreased breath sounds at the bases. CARDIOVASCULAR: Shows a regular rate and rhythm with AI/MR/TR. No S3, no S4, no rub. ABDOMEN: Soft. Bowel sounds normal. Mild distention. Positive fluid wave. No rebound or guarding. EXTREMITIES: Show 1+ pitting edema of her lower extremity. No cyanosis or clubbing. LABORATORY DATA AND IMAGING: Abdominal CT scan done earlier during hospitalization showed cirrhosis with ascites and subcutaneous edema. CBC from 12/09, hemoglobin was 10.2 with a white blood cell count of 4, platelet count was normal at 147,000. Last set of chemistries done on 12/09, sodium was 129, BUN 23 with a creatinine of 1.7. Glucose was 275. Repeat glucose levels were improved down to 196. Calcium level was 8.1. Mild elevation of her liver enzymes. Bilirubin was normal at 0.6, albumin was 2.5. Microbiology was unremarkable. ASSESSMENT: 1. Hyponatremia, likely dilutional in nature secondary to the patient being volume overloaded with ascites and edema. The patient had continued on Samsca with an apparently good urine output. She also continues on low-dose diuretic therapy. Her TSH level of note was 9.9 with a T4 level of 9. Perhaps some component of borderline to mild hypothyroidism playing a role in her hyponatremia. I will obtain a free T4 level and a T3 level. 2. Stable chronic kidney disease, stage III. Creatinine is stable at 1.6-1.7 range with a BUN in the mid 20s. 3. History of atherosclerotic heart disease status post percutaneous transluminal coronary angioplasty and stent, appears to be stable. 4. History of aortic insufficiency/mitral regurgitation/tricuspid regurgitation. History of pulmonary hypertension. Ejection fraction in the past was 71%. 5. History of partial colectomy for gastrointestinal bleeding. 6. History of anemia, likely secondary to chronic kidney disease. 7. Past history of mild hyperkalemia. This was treated with Kayexalate. Her last potassium level was 4. 8. History of hypertension. Blood pressure remains controlled on present medical therapy, mostly diuretics. 9. History of cardiac cirrhosis, stable. 10. History of recent pneumonia, stable. 11. Do not resuscitate status noted. PLAN: 1. Continue tolvaptan, but need to monitor electrolytes on a regular basis. 2. May continue Lasix, spironolactone and metolazone as ordered. 3. Attempt to keep the patient in negative fluid balance. 4. DNR status noted. Her long-term prognosis is poor. Ga Braden MD
== END 2017-12-11 18:30 | DRG 432 ==
LOC: ED 07:24 → ERH 10:19 → 5RSO 11:12 → OBSVTOIN 12-03 09:44
PROVIDERS: ADMIT Internal Medicine; ATTEND Internal Medicine
PROC: 0W9G3ZX Drainage of Peritoneal Cavity, Percutaneous Approach, Diagnostic (ICD-10-PCS; principal; 2017-11-30 12:00)
DX: K74.60 Unspecified cirrhosis of liver (principal); I50.33 Acute on chronic diastolic (congestive) heart failure; J18.9 Pneumonia, unspecified organism; R18.8 Other ascites; I13.0 Hypertensive heart and chronic kidney disease with heart failure and stage 1 through stage 4 chronic kidney disease, or unspecified chronic kidney disease; D61.818 Other pancytopenia; E22.2 Syndrome of inappropriate secretion of antidiuretic hormone; J44.0 Chronic obstructive pulmonary disease with (acute) lower respiratory infection; K76.6 Portal hypertension; N17.9 Acute kidney failure, unspecified; N18.4 Chronic kidney disease, stage 4 (severe); N39.0 Urinary tract infection, site not specified; I25.10 Atherosclerotic heart disease of native coronary artery without angina pectoris; B19.20 Unspecified viral hepatitis C without hepatic coma; D63.1 Anemia in chronic kidney disease; E03.9 Hypothyroidism, unspecified; E11.22 Type 2 diabetes mellitus with diabetic chronic kidney disease; I08.3 Combined rheumatic disorders of mitral, aortic and tricuspid valves; I27.29 Other secondary pulmonary hypertension; I50.82 Biventricular heart failure; K76.1 Chronic passive congestion of liver; K55.20 Angiodysplasia of colon without hemorrhage; E78.5 Hyperlipidemia, unspecified; Z66 Do not resuscitate; Y95 Nosocomial condition; R26.2 Difficulty in walking, not elsewhere classified; Z79.4 Long term (current) use of insulin; Z95.5 Presence of coronary angioplasty implant and graft

== ENCOUNTER 2018-01-03 14:26 | Inpatient (IN) | payer MEDICARE, OTHER ==
--- NOTE | 2018-01-03 15:14 | RAD ---
Date of service: 01/03/2018 HISTORY: weakness COMPARISON: 11/12/2017 FINDINGS: LUNGS: No active pulmonary disease. PLEURA: No significant pleural effusion identified, no pneumothorax apparent. CARDIOVASCULAR: Normal. OSSEOUS STRUCTURES: No significant abnormalities. VISUALIZED UPPER ABDOMEN: Normal. OTHER FINDINGS: None. IMPRESSION: No active disease.
[2018-01-03 15:32] LABS: BASO # 0.01 K/mm3 (0.0-2.0); BASO % 0.1 % (0.0-3.0); EOS # 0.1 (0.0-0.7); EOS % 0.5 % (1.5-5.0); GRAN # 10.7 (1.4-6.5); GRAN % 64.7 % (50.0-68.0); HEMOGLOBIN 14.1 g/dL (12.0-16.0); LYMPH # 4.3 (1.2-3.4); MEAN CELL VOLUME 85.1 fl (80.0-105.0); MEAN CORPUSCULAR HEMOGLOBIN 32.8 pg (25.0-35.0); MEAN CORPUSCULAR HGB CONC 38.5 g/dl (31.0-37.0); MEAN PLATELET VOLUME 10.3 fl (7.0-11.0); MONO # 1.4 (0.1-0.6); MONO % 8.7 % (1.0-6.0); RBC 4.3 10^6/uL (3.5-6.1); RED CELL DISTRIBUTION WIDTH 14.2 % (11.5-14.5); WHITE BLOOD COUNT 16.5 10^3/ul (4.5-11.0)
[2018-01-03 15:33] LABS: INR 1.17; PROTHROMBIN TIME 13.4 SECONDS (9.4-12.5)
[2018-01-03 15:36] LABS: PARTIAL THROMBOPLASTIN TIME 29.4 Seconds (25.1-36.5)
[2018-01-03 15:48] LABS: TROPONIN I 0.12 ng/mL
[2018-01-03 15:57] LABS: ALB/GLOB RATIO 1.4 (1.1-1.8); ALBUMIN 4.2 g/dL (3.0-4.8); CALCIUM 9.1 mg/dL (8.4-10.5)
[2018-01-03] MEDS ORDERED: Sodium Chloride 3% 500 ML IV SCH (16:15)
--- NOTE | 2018-01-03 17:24 | CP.PCM.CON ---
<IndraYuri - Last Filed: 01/03/18 17:41> History of Present Illness - History of Present Illness History of Present Illness: ICU consult note: Indra PGY - 2 Reason for consult: Hyponatremia HPI: 82 year old female with past medical history pertinent for CKD presented to [facility] ED with altered mental status. Patient was recently admitted to [facility] for abdominal pain which was diagnosed as Cardiac Ascites. Paracentesis was done and 3400 CC fluid was removed. Today patient presents from shelter because she was having nausea vomiting and abdominal pain. When blood work was done, patient was found to have low sodium (history obtained from daughter who is at bedside), and she was sent to [place] ED. Patient herself denies any other complaints besides abdominal pain, and denies any chest pain, shortness of breath, or any other symptoms. Review of Systems: 12 point ROS obtained and negative except as per HPI Surgical Hx: Right hemicolectomy, cardiac cath Medical Hx: Cirrhosis, anemia, CHF, HTN, DM, CAD with stent, GI AVM, past GI bleed, CKD, COPD Allergies: Shellfish Social History: Denies alcohol, tobacco, illicits Home Meds: Reviewed, as per MAR Family Hx: HTN, DM Past Patient History - Infectious Disease Hx of Infectious Diseases: None - Tetanus Immunizations Tetanus Immunization: Unknown - Past Social History Smoking Status: Never Smoked - CARDIAC Hx Cardiac Disorders: Yes Hx Congestive Heart Failure: Yes Hx Hypercholesterolemia: Yes Hx Hypertension: Yes - PULMONARY Hx Respiratory Disorders: Yes Hx Bronchitis: Yes Hx Chronic Obstructive Pulmonary Disease (COPD): Yes Hx Pneumonia: Yes - NEUROLOGICAL Hx Neurological Disorder: Yes Hx Vertigo: Yes - HEENT Hx HEENT Problems: No - RENAL Hx Chronic Kidney Disease: Yes Hx Renal Failure: Yes - ENDOCRINE/METABOLIC Hx Endocrine Disorders: Yes Hx Diabetes Mellitus Type 2: Yes Hx Hypothyroidism: Yes - HEMATOLOGICAL/ONCOLOGICAL Hx Blood Disorders: Yes Hx Anemia: Yes Hx Blood Transfusions: Yes - INTEGUMENTARY Hx Dermatological Problems: Yes Hx Cellulitis: Yes - MUSCULOSKELETAL/RHEUMATOLOGICAL Hx Musculoskeletal Disorders: Yes Hx Arthritis: Yes - GASTROINTESTINAL Hx Gastrointestinal Disorders: Yes - GENITOURINARY/GYNECOLOGICAL Hx Genitourinary Disorders: Yes - PSYCHIATRIC Hx Anxiety: No Hx Bipolar Disorder: No Hx Depression: No Hx Post Traumatic Stress Disorder: No Hx Schizophrenia: No Hx Substance Use: No - SURGICAL HISTORY Hx Surgeries: Yes Hx Appendectomy: Yes Hx Coronary Stent: Yes - ANESTHESIA Hx Anesthesia: Yes Hx Anesthesia Reactions: No Hx Malignant Hyperthermia: No Meds Allergies/Adverse Reactions: Allergies Allergy/AdvReac Type Severity Reaction Status Date / Time shellfish derived Allergy RASH Verified 01/03/18 14:29 - Medications Medications: Current Medications Sodium Chloride (Hypertonic Saline 3%) 500 mls @ 20 mls/hr IV .Q24H [facility]AK Physical Exam - Constitutional Appears: Non-toxic, Chronically Ill - Head Exam Head Exam: ATRAUMATIC, NORMAL INSPECTION, NORMOCEPHALIC - Eye Exam Eye Exam: EOMI, Normal appearance, PERRL Pupil Exam: NORMAL ACCOMODATION, PERRL - ENT Exam ENT Exam: Mucous Membranes Moist, Normal Exam - Neck Exam Neck exam: Positive for: Normal Inspection - Respiratory Exam Respiratory Exam: Clear to Auscultation Bilateral, NORMAL BREATHING PATTERN - Cardiovascular Exam Cardiovascular Exam: REGULAR RHYTHM, Systolic Murmur (holosystolic murmur heard best at LSB) - GI/Abdominal Exam GI & Abdominal Exam: Normal Bowel Sounds, Soft. absent: Tenderness - Extremities Exam Extremities exam: Positive for: normal capillary refill, normal inspection - Back Exam Back exam: NORMAL INSPECTION - Neurological Exam Neurological exam: Alert, CN II-XII Intact, Normal Gait, Oriented x3, Reflexes Normal - Psychiatric Exam Psychiatric exam: Normal Affect, Normal Mood - Skin Skin Exam: Dry, Intact, Normal Color, Warm Results - Vital Signs Recent Vital Signs: Last Vital Signs Temp 98.9 F 01/03/18 14:35 Pulse 89 01/03/18 17:15 Resp 17 01/03/18 17:15 BP 123/68 01/03/18 17:15 Pulse Ox 100 01/03/18 17:15 - Labs Result Diagrams: 01/03/18 14:54 01/03/18 14:54 Assessment & Plan - Assessment and Plan (Free Text) Assessment: 82 year old female with pertinent medical history of CKD under ICU management for treatment of Hyponatremia Hx Cirrhosis Hx Anemia Hx CHF Hx HTN Hx DM Hx CAD s/p stent Hx GI AVM Hx GI bleed Hx COPD Plan - Admit to ICU - Obtain Nephrology consult: Dr. Rodriguez - Obtain BMP q4 hours - Obtain Mg/Phos in addition to other AM labs - Obtain cultures and procalcitonin - Obtain nursing bedside swallow eval - Continue with Xopenex TID PRN - Start patient on fluids as per renal - Start GI/DVT PPX - Maintain normothermia, euglycemia, euvolemia - Maintain MAP > 65, O2 sats > 92% <Antony Colbert - Last Filed: 01/03/18 18:07> Meds - Medications Medications: Current Medications Enoxaparin Sodium (Lovenox) 40 mg SC DAILY [facility] PRN Reason: Protocol Sodium Chloride (Hypertonic Saline 3%) 500 mls @ 20 mls/hr IV .Q24H [facility] Last Admin: 01/03/18 17:30 Dose: 20 mls/hr Metronidazole (Flagyl) 500 mg in 100 mls @ 100 mls/hr IV ONCE ONE PRN Reason: Protocol Stop: 01/03/18 18:46 Ceftriaxone Sodium (Rocephin 1 Gram Ivpb) 1 gm in 100 mls @ 200 mls/hr IVPB ONCE STA PRN Reason: Protocol Stop: 01/03/18 18:16 Insulin Human Regular (Humulin R Med) 0 units SC ACHS [facility] PRN Reason: Protocol Pantoprazole Sodium (Protonix Inj) 40 mg IVP DAILY [facility] Results - Vital Signs Recent Vital Signs: Last Vital Signs Temp 98.9 F 01/03/18 14:35 Pulse 89 01/03/18 17:15 Resp 17 01/03/18 17:15 BP 123/68 01/03/18 17:15 Pulse Ox 100 01/03/18 17:15 - Labs Result Diagrams: 01/03/18 14:54 01/03/18 14:54 Labs: Laboratory Results - last 24 hr 01/03/18 01/03/18 01/03/18 17:10 17:10 17:10 Urine Color yellow Urine Appearance Clear Urine pH 6.0 Ur Specific [place] 1.015 Urine Protein 100 H Urine Glucose (UA) Negative Urine Ketones Negative Urine Blood Small H Urine Nitrate Negative Urine Bilirubin Negative Urine Urobilinogen 1.0 H Ur Leukocyte Esterase Trace H Urine RBC 10 - 15 Urine WBC 5 - 10 Ur Epithelial Cells 10 - 12 Urine Osmolality 294 L Ur Random Sodium 43 Assessment & Plan - Assessment and Plan (Free Text) Assessment: Patient seen and examined, with resident, agree with note with following additions/exceptions: Patient is 82yo female with PMHx of PNA, CKD, CHF, Ascites presented from NH/ rehab for hyponatremia, Na 108. Patient currently afebrile, HD stable, comfortable in NAD, doing well, AAOx2 Labs, imaging, chart reviewed Renal consulted, recommending 3% Saline 20cc/hr Check BMP q6hr, goal Na correction 6-8meq/24hr Check UA, Ulytes, TSH, Uric Acid Follow up renal Renal sono Hold Lasix GI ppx DVT ppx Admit to MICU
[2018-01-03] MEDS ORDERED: Morphine 2 mg/ml ISec IVP STA (17:30)
[2018-01-03 17:35] LABS: URINE BILIRUBIN NEGATIVE (NEGATIVE); URINE BLOOD SMALL (NEGATIVE); URINE GLUCOSE (UA) NEGATIVE (NEGATIVE); URINE LEUKOCYTE ESTERASE TRACE Leu/uL (NEGATIVE); URINE PROTEIN 100 mg/dL (<30 mg/dL)
--- NOTE | 2018-01-03 17:40 | CARD ---
APPROVED REPORT Date of service: 01/03/2018 EKG Measurement Heart [id number] <Conclusion> Normal sinus rhythm Possible Left atrial enlargement Left ventricular hypertrophy Nonspecific ST abnormality Abnormal ECG
[2018-01-03 17:44] LABS: URINE APPEARANCE CLEAR (CLEAR)
[2018-01-03] MEDS ORDERED: cefTRIAXone 1 gm 1 GM/100 ML BAG IVPB STA (17:47)
[2018-01-03] MEDS ORDERED: metroNIDAZOLE IV 500 mg/100 ml 500 MG/100 ML BAG IV ONE (17:47)
--- NOTE | 2018-01-03 17:53 | ED PDOC ---
Arrival/HPI - General Chief Complaint: Abnormal Labs Time Seen by Provider: 01/03/18 14:29 Historian: Patient - History of Present Illness Narrative History of Present Illness (Text): 01/03/18 17:49 Patient is an 82 yo female with past medical history of "cardiac ascites", renal insufficiency, edema, CAD, [facility] with history of "low sodium level". As per patient's , who is initially at bedside, patient has been weaker over the past week, and uncomfortable. Patient reportedly with past history of having intermittent back and abdominal pain. She reports some nausea. PMD states that when patient was seen two weeks ago she was talking, walking and interactive without any difficulty. Time/Duration: Prior to Arrival Symptom Onset: Gradual Past Medical History - Infectious Disease Hx of Infectious Diseases: None - Tetanus Immunization Tetanus Immunization: Unknown - Cardiac Hx Cardiac Disorders: Yes Hx Congestive Heart Failure: Yes Hx Hypertension: Yes - Pulmonary Hx Respiratory Disorders: Yes Hx Bronchitis: Yes Hx Chronic Obstructive Pulmonary Disease (COPD): Yes Hx Pneumonia: Yes - Neurological Hx Neurological Disorder: Yes Hx Vertigo: Yes - HEENT Hx HEENT Disorder: No - Renal Hx Renal Disorder: Yes Hx Renal Failure: Yes - Endocrine/Metabolic Hx Endocrine Disorders: Yes Hx Diabetes Mellitus Type 2: Yes Hx Hypothyroidism: Yes - Hematological/Oncological Hx Blood Disorders: Yes Hx Anemia: Yes Hx Blood Transfusions: Yes - Integumentary Hx Dermatological Disorder: Yes Hx Cellulitis: Yes - Musculoskeletal/Rheumatological Hx Musculoskeletal Disorders: Yes Hx Arthritis: Yes - Gastrointestinal Hx Gastrointestinal Disorders: Yes - Genitourinary/Gynecological Hx Genitourinary Disorders: Yes - Psychiatric Hx Anxiety: No Hx Bipolar Disorder: No Hx Depression: No Hx Post Traumatic Stress Disorder: No Hx Schizophrenia: No Hx Substance Use: No - Surgical History Hx Appendectomy: Yes Hx Coronary Stent: Yes - Anesthesia Hx Anesthesia: Yes Hx Anesthesia Reactions: No Hx Malignant Hyperthermia: No - Suicidal Assessment Feels Threatened In Home Enviroment: No Family/Social History Family/Social History: Unknown Family HX Smoking Status: Never Smoked Hx Alcohol Use: No Hx Substance Use: No Hx Substance Use Treatment: No Allergies/Home Meds Allergies/Adverse Reactions: Allergies shellfish derived Allergy (Verified 01/03/18 14:29) RASH Home Medications: Home Meds Medication Instructions Recorded Confirmed Furosemide [Lasix] 40 mg PO DAILY 04/14/15 01/03/18 Amlodipine Besylate [Norvasc] 10 mg PO DAILY 08/23/15 01/03/18 Aspirin [Aspirin Chewable] 81 mg PO DAILY 08/23/15 01/03/18 Isosorbide Mononitrate [Imdur] 60 mg PO DAILY 08/23/15 01/03/18 Insulin Lispro Mix 75/25 [HumaLOG 10 units SC .BEFOREDINNER 10/22/15 01/03/18 Mix 75/25] ALPRAZolam [Xanax] 0.25 mg PO Q12H PRN 01/03/18 01/03/18 Aluminum Hydroxide/Magnesium H 5 ml PO Q4 PRN 01/03/18 01/03/18 [Maalox 30 ml] Insulin Lispro Mix 75/25 [humalog 15 units SC ACB 01/03/18 01/03/18 Mix 75/25 75 U/Ml-25 U/Ml 10 Ml] Insulin Lispro [humALOG] 0 units SC ACHS 01/03/18 01/03/18 Magnesium Hydroxide [Milk Of 5 ml PO Q24H PRN 01/03/18 01/03/18 Magnesia] Ondansetron HCl [Zofran] 4 mg PO Q6H PRN 01/03/18 01/03/18 Pantoprazole Sodium [Protonix] 40 mg PO DAILY 01/03/18 01/03/18 Spironolactone [Aldactone] 50 mg PO BID 01/03/18 01/03/18 Zolpidem [Ambien] 5 mg PO HS PRN 01/03/18 01/03/18 metOLazone [Zaroxolyn] 2.5 mg PO DAILY 01/03/18 01/03/18 traMADol 50 mg PO Q8 01/03/18 01/03/18 Review of Systems - Review of Systems Constitutional: Fatigue. absent: Fevers Eyes: absent: Vision Changes ENT: absent: Hearing Changes Respiratory: absent: SOB Cardiovascular: Chest Pain, Edema (improved over past several weeks as per ). absent: NAVARRO Gastrointestinal: Abdominal Pain, Nausea, Appetite Changes. absent: Diarrhea, Vomiting Genitourinary Female: Urine Output Changes Musculoskeletal: Myalgias Skin: absent: Rash Neurological: absent: Headache, Dizziness Hemo/Lymphatic: absent: Easy Bleeding Psychiatric: absent: Depression Physical Exam Vital Signs Reviewed: Yes Vital Signs Temp Pulse Resp BP Pulse Ox 01/03/18 18:06 85 16 123/72 99 01/03/18 17:53 98.3 F 87 18 107/72 98 01/03/18 17:15 89 17 123/68 100 01/03/18 16:09 89 16 133/70 100 01/03/18 14:35 98.9 F 87 16 139/73 99 Temperature: Afebrile Appearance: Positive for: Uncomfortable Pain Distress: Moderate Mental Status: Positive for: other (alert, answers questions, but appears very fatigued) - Systems Exam Head: Present: Atraumatic Pupils: Present: PERRL Mouth: Present: Dry Pharnyx: No: ERYTHEMA Neck: Present: Normal Range of Motion. No: Meningeal Signs Respiratory/Chest: Present: Clear to Auscultation Cardiovascular: Present: Regular Rate and Rhythm, Murmurs Abdomen: Present: Tenderness. No: Distention, Peritoneal Signs, Rebound, Guarding Rectal: No: Gross Blood Back: No: CVA Tenderness Upper Extremity: No: Cyanosis Lower Extremity: No: Edema Neurological: Present: Other (slow speech appears slightly slurred, however she will move all four extremites slowly) Skin: Present: Warm Psychiatric: Present: Alert. No: Normal Concentration Medical Decision Making ED Course and Treatment: 01/03/18 18:00 Patient is an 82 yo female with report of low sodium level noted on blood tests today at jail ordered by Dr. Morataya. Family states she has been more confused and "altered" and weaker over past week. She also has reportedly had episodes of abdominal pain with nausea and vomiting. On initial exam she will answer questions slowly, move all extremities. She is afebrile. She is noted to have sodium level of 108. Pay Agent and neprhologist consulted. Patient has been taking Lasix for history of edema. She currently is not short of breath or hypoxic. On re-exam patient expressed increasing pain to abdomen and chest. EKG reordered as troponin initially 0.12. Pain appears palpable. Given leukocytosis, cultures ordered and iv antibiotics ordered. Pay Agent updated. Will order ct abdomen and ct head, results to be endorsed to admitting team. IV pain medication ordered. FLUID ORDERS PER admitting pmd and continuity coordinator. Patient accepted to ICU for management of electrolyte derangements and serial exams of abdominal and chest pain. - Critical Care Critical Care Minutes: 30 minutes - Lab Interpretations Lab Results: 01/03/18 14:54 01/03/18 14:54 Lab Results 01/03/18 14:54: Uric Acid 12.4 H 01/03/18 14:54: Sodium 108 L*, Potassium 4.4, Chloride 64 L D, Carbon Dioxide 30 , Anion Gap 18, BUN 55 H, Creatinine 2.7 H, Est GFR ( Amer) 20, Est GFR ( Non-Af Amer) 17, Random Glucose 148 H, Calcium 9.1, Magnesium 2.0, Total Bilirubin 1.7 H, AST 59 H, ALT 37, Alkaline Phosphatase 141 H, Lactate Dehydrogenase 844 H, Total Creatine Kinase 59, Troponin I 0.12 D, Total Protein 7.2, Albumin 4.2, Globulin 3.0, Albumin/Globulin Ratio 1.4 01/03/18 14:54: PT 13.4 H, INR 1.17, APTT 29.4 01/03/18 14:54: WBC 16.5 H D, RBC 4.30, Hgb 14.1 D, Hct 36.6, MCV 85.1 D, MCH 32.8, MCHC 38.5 H, RDW 14.2, Plt Count 227, MPV 10.3, Gran % 64.7, Lymph % (Auto ) 26.0, [place] % (Auto) 8.7 H, Eos % (Auto) 0.5 L, Baso % (Auto) 0.1, Gran # 10.70 H, Lymph # (Auto) 4.3 H, [place] # (Auto) 1.4 H, Eos # (Auto) 0.1, Baso # ( Auto) 0.01 - RAD Interpretation Radiology Orders: 01/03/18 14:38 CHEST PORTABLE [RAD] Stat Division Plant Engineer: Radiologist - EKG Interpretation EKG Interpretation (Text): EKG at 15:10 normal sinus rhythm rate of 86, left ventricular hypertrophy, nonspecific st abnormality Interpreted by ED Physician: Yes Type: 12 lead EKG - Medication Orders Current Medication Orders: Acetaminophen (Tylenol 325mg Tab) 650 mg PO Q6H PRN PRN Reason: Pain, Mild (1-3) Last Admin: 01/04/18 08:44 Dose: 650 mg MAR Pain/Vitals Document 01/04/18 08:44 MDU (Rec: 01/04/18 08:49 MDU [id number]) Pain Reassessment Is This A Pain ReAssessment? No Sleep Is patient sleeping during reassessment? No Presence of Pain Presence of Pain Yes Pain Scale Used Pain Scale Used Numeric Location Pain Location Body [employer] Description Constant Intensity 10 Scale Used Numeric Pain Behavior Moaning Irritability Restlessness Aspirin (Aspirin Chewable) 81 mg PO DAILY [facility] Last Admin: 01/04/18 09:13 Dose: 81 mg Sodium Chloride (Hypertonic Saline 3%) 500 mls @ 20 mls/hr IV .Q24H [facility] Last Admin: 01/03/18 17:30 Dose: 20 mls/hr eMAR Start Stop Document 01/03/18 17:30 SF (Rec: 01/03/18 17:30 SF [id number]) Intravenous Solution Start Date 01/03/18 Start Time 17:30 Insulin Human Lispro (Humalog Med) 0 units SC ACHS [facility] PRN Reason: Protocol Isosorbide Mononitrate (Imdur) 60 mg PO DAILY [facility] Last Admin: 01/04/18 09:13 Dose: 60 mg Pantoprazole Sodium (Protonix Ec Tab) 40 mg PO ACB JAK Discontinued Medications Aspirin (Aspirin Chewable) 81 mg PO STAT STA Stop: 01/03/18 17:31 Last Admin: 01/03/18 17:35 Dose: 81 mg Enoxaparin Sodium (Lovenox) 30 mg SC DAILY JAK PRN Reason: Protocol Last Admin: 01/04/18 09:12 Dose: 30 mg Subcutaneous Administrations Document 01/04/18 09:12 MDU (Rec: 01/04/18 09:12 MDU [id number]) Injection Site MAR Injection Site Right Abdomen Charges for Administration # of Subcutaneous Administrations 1 Metronidazole (Flagyl) 500 mg in 100 mls @ 100 mls/hr IV ONCE ONE PRN Reason: Protocol Stop: 01/03/18 18:46 Last Admin: 01/03/18 20:25 Dose: 100 mls/hr eMAR Start Stop Document 01/03/18 20:25 CARL (Rec: 01/03/18 20:25 CARL [id number]) Intravenous Solution Start Date 01/03/18 Start Time 20:25 End Date 01/03/18 End time 21:25 Total Infusion Time 60 Ceftriaxone Sodium (Rocephin 1 Gram Ivpb) 1 gm in 100 mls @ 200 mls/hr IVPB ONCE STA PRN Reason: Protocol Stop: 01/03/18 18:16 Last Admin: 01/03/18 18:08 Dose: 200 mls/hr eMAR Start Stop Document 01/03/18 18:08 SF (Rec: 01/03/18 18:08 SF [id number]) Intravenous Solution Start Date 01/03/18 Start Time 18:08 End Date 01/03/18 End time 18:38 Total Infusion Time 30 Sodium Chloride (Sodium Chloride 0.45%) 1,000 mls @ 40 mls/hr IV .Q24H JAK Last Admin: 01/03/18 20:18 Dose: 40 mls/hr eMAR Start Stop Document 01/03/18 20:18 CARL (Rec: 01/03/18 20:18 CARL [id number]) Intravenous Solution Start Date 01/03/18 Start Time 20:18 End Date 01/04/18 Insulin Human Regular (Humulin R Med) 0 units SC ACHS JAK PRN Reason: Protocol Last Admin: 01/04/18 08:52 Dose: 5 units MAR Blood Glucose Document 01/04/18 08:52 MDU (Rec: 01/04/18 08:53 MDU [id number]) Blood Glucose Finger Stick Blood Glucose (70-120) 293 Subcutaneous Administrations Document 01/04/18 08:52 MDU (Rec: 01/04/18 08:53 MDU [id number]) Injection Site MAR Injection Site Right Arm Charges for Administration # of Subcutaneous Administrations 1 Morphine Sulfate (Morphine) 2 mg IVP STAT STA Stop: 01/03/18 17:31 Last Admin: 01/03/18 17:35 Dose: 2 mg MAR Pain Assessment Document 01/03/18 17:35 SF (Rec: 01/03/18 17:35 SF [id number]) Pain Reassessment Is this a pain reassessment? Yes Sleep Is patient sleeping during reassessment? No Presence of Pain Presence of Pain Yes Pain Scale Used Pain Scale Used Numeric Location Pain Location Body Site Chest Generalized Description Description Constant IVP Administration Document 01/03/18 17:35 SF (Rec: 01/03/18 17:35 [id number]) Charges for Administration # of IVP Administrations 1 Pantoprazole Sodium (Protonix Inj) 40 mg IVP DAILY JAK Last Admin: 01/04/18 09:12 Dose: 40 mg IVP Administration Document 01/04/18 09:12 MDU (Rec: 01/04/18 09:12 MDU [id number]) Charges for Administration # of IVP Administrations 1 Pneumococcal Polyvalent Vaccine (Pneumovax 23 Vaccine) 0.5 ml IM .ONCE ONE Stop: 01/03/18 23:08 Disposition/Present on Arrival - Present on Arrival Any Indicators Present on Arrival: Yes History of DVT/PE: No History of Uncontrolled Diabetes: Yes Urinary Catheter: Yes History of Decub. Ulcer: No History Surgical Site Infection Following: None - Disposition Have Diagnosis and Disposition been Completed?: Yes Diagnosis: Abdominal pain, Elevated troponin, Renal failure, Hyponatremia, Leukocytosis, Chest pain Disposition: HOSPITALIZED Disposition Time: 17:00 Patient Plan: Admission, ICU Patient Problems: Current Active Problems Problem Status Onset Abdominal pain Acute Chest pain Acute Elevated troponin Acute Hyponatremia Acute Leukocytosis Acute Renal failure Acute Condition: CRITICAL
--- NOTE | 2018-01-03 18:45 | CT ---
Date of service: 01/03/2018 PROCEDURE: CT HEAD WITHOUT CONTRAST. HISTORY: altered mental status COMPARISON: 01/24/2017. TECHNIQUE: Axial computed tomography images were obtained through the head/brain without intravenous contrast. Coronal and sagittal reconstructed images. Radiation dose: Total exam DLP = 888.32 mGy-cm. This CT exam was performed using one or more of the following dose reduction techniques: Automated exposure control, adjustment of the mA and/or kV according to patient size, and/or use of iterative reconstruction technique. FINDINGS: HEMORRHAGE: No intracranial hemorrhage. BRAIN: No mass effect or edema. Cortical atrophy, periventricular small vessel disease. VENTRICLES: Unremarkable. No hydrocephalus. CALVARIUM: Unremarkable. PARANASAL SINUSES: Unremarkable as visualized. No significant inflammatory changes. MASTOID AIR CELLS: Unremarkable as visualized. No inflammatory changes. OTHER FINDINGS: None. IMPRESSION: No acute intracranial abnormalities. No significant findings to account for the clinical presentation. No significant interval change compared to the prior examination(s).
--- NOTE | 2018-01-03 18:48 | CT ---
Date of service: 01/03/2018 PROCEDURE: CT Abdomen and Pelvis without intravenous contrast HISTORY: Abdominal pain, leukocytosis COMPARISON: 12/01/2017. CT abdomen and pelvis TECHNIQUE: Unenhanced study. Neither oral nor intravenous contrast administered. Radiation dose: Total exam DLP = 545.82 mGy-cm. This CT exam was performed using one or more of the following dose reduction techniques: Automated exposure control, adjustment of the mA and/or kV according to patient size, and/or use of iterative reconstruction technique. FINDINGS: LOWER THORAX: Unremarkable. LIVER: Unremarkable. No gross lesion or ductal dilatation. GALLBLADDER AND BILE DUCTS: Distended gallbladder. Cholelithiasis without CT evidence of acute cholecystitis. PANCREAS: Unremarkable. No gross lesion or ductal dilatation. SPLEEN: Unremarkable. ADRENALS: Unremarkable. No mass. KIDNEYS AND URETERS: Unremarkable. No hydronephrosis. No solid mass. VASCULATURE: Unremarkable. No aortic aneurysm. BOWEL: Unremarkable. No obstruction. No gross mural thickening. No abnormalities at the anastomotic suture line following right hemicolectomy. APPENDIX: Not visualized. PERITONEUM: Unremarkable. No free fluid. No free air. LYMPH NODES: Unremarkable. No enlarged lymph nodes. BLADDER: Amaral catheter identified in a partially collapsed urinary bladder. REPRODUCTIVE: Unremarkable. BONES: No acute fracture. OTHER FINDINGS: None. IMPRESSION: Cholelithiasis without CT evidence of acute cholecystitis. No acute findings related to/accounting for the clinical presentation. Additional benign and/or incidental findings described above.
[2018-01-03] MEDS ORDERED: Sodium Chloride 0.45% 1,000 ML IV SCH (19:45)
[2018-01-03] MEDS: Insulin Lispro (humaLOG) MEDIUM Coverage SC SCH (20:15)
[2018-01-03] MEDS: Insulin Reg-MEDIUM-Coverage SC SCH (22:10)
[2018-01-03 23:05] LABS: CALCIUM 8.8 mg/dL (8.4-10.5)
[2018-01-03 23:06] VITALS: BMI 24.1
[2018-01-03] MEDS ORDERED: Pneumococcal 23-Valent Vaccine IM ONE (23:07)
[2018-01-04 03:27] LABS: CALCIUM 8.5 mg/dL (8.4-10.5)
[2018-01-04 06:21] LABS: BASO # 0.02 K/mm3 (0.0-2.0); BASO % 0.1 % (0.0-3.0); EOS # 0.1 (0.0-0.7); EOS % 0.5 % (1.5-5.0); GRAN # 9.6 (1.4-6.5); GRAN % 66.2 % (50.0-68.0); HEMOGLOBIN 13.7 g/dL (12.0-16.0); LYMPH # 3.1 (1.2-3.4); LYMPH % 21.3 % (22.0-35.0); MEAN CELL VOLUME 86.7 fl (80.0-105.0); MEAN CORPUSCULAR HEMOGLOBIN 32.1 pg (25.0-35.0); MEAN PLATELET VOLUME 9.8 fl (7.0-11.0); MONO # 1.7 (0.1-0.6); MONO % 11.9 % (1.0-6.0); RBC 4.27 10^6/uL (3.5-6.1); RED CELL DISTRIBUTION WIDTH 14.4 % (11.5-14.5); WHITE BLOOD COUNT 14.5 10^3/ul (4.5-11.0)
--- NOTE | 2018-01-04 07:16 | HP ---
Copied To: Harsh Morataya MD Attending MD: Harsh Morataya MD HISTORY OF PRESENT ILLNESS: The patient is 82-year-old who is a resident of [facility]. I got her blood work this morning. She was found to have sodium of 107. According to family, she has been feeling little nauseous and tired for the last few days. So, she was urgently brought to emergency room for further evaluation. The patient does look lethargic. Complained of nausea and decreased appetite. No history of documented fever in the [facility]. No abdominal pain, no diarrhea. No urinary complaints. PAST MEDICAL HISTORY: Significant for: 1. Insulin-dependent diabetes. 2. Chronic kidney disease. 3. Hyponatremia. 4. History of cardiac cirrhosis. 5. Thrombocytopenia. 6. 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 She had partial colectomy because of bleeding almost a year and a half ago. 7. Chronic back pain. 8. Chronic anemia. ALLERGIES: SHE IS ALLERGIC TO SHELLFISH DERIVATIVES. MEDICATIONS: In the [facility], she is on Imdur 60 mg daily, aspirin 81 daily, tramadol p.r.n., hydralazine 10 mg every 6, and she is on MiraLax, nitroglycerin, multivitamin. She also is on Xopenex, iron supplementation, and insulin, glipizide 10 mg daily, Lasix 40 mg daily, amlodipine 10 mg daily. SOCIAL HISTORY: She is remarried, and has grown-up children. No history of smoking or drinking. Currently, she is [place] resident. PHYSICAL EXAMINATION: GENERAL: Sleepy, but arousable. VITAL SIGNS: She is afebrile, pulse 87, respiration 18, blood pressure 123/72. LUNGS: Bilateral fair airflow. No rhonchi or crackles. HEART: S1 and S2 audible. ABDOMEN: Soft, nontender. No rebound, no guarding. NEUROLOGIC: She is sleepy, but arousable. EXTREMITIES: Bilateral legs, +1 edema. LABORATORY DATA: WBC 16.5, hemoglobin 14, hematocrit 36, platelets 227. PT 13.4, INR 1.17. Chemistry: Sodium 108, potassium 4.4, chloride 64, CO2 of 30, BUN 55, creatinine 2.7, blood sugar of 148. Uric acid is 12.4, total bili 1.7, alkaline phosphatase 141, LDH is 844. Troponin 0.12. CT scan of the abdomen and pelvis done, that shows chololithiasis but no evidence of . CT scan of the head is unremarkable. ASSESSMENT: 1. Symptomatic hyponatremia. 2. Cardiac cirrhosis. 3. Acute on chronic renal failure. 4. Insulin-dependent diabetes. 5. Hypertension. 6. Thrombocytopenia. 7. History of gastrointestinal bleed in the past. PLAN: The patient is currently on hypertonic saline 20 mL per hour and she is on seizure precaution. She is started on 40 mL of saline also. The patient's mental status and respiratory status will be closely monitored. I will follow up her electrolyte in the a.m. Dr. Rodriguez has been consulted for . Harsh Morataya MD
[2018-01-04 07:21] LABS: ALB/GLOB RATIO 1.3 (1.1-1.8); ALBUMIN 3.7 g/dL (3.0-4.8); CALCIUM 8.5 mg/dL (8.4-10.5)
--- NOTE | 2018-01-04 07:47 | CARD ---
APPROVED REPORT Date of service: 01/03/2018 EKG Measurement Heart [id number] <Conclusion> Normal sinus rhythm Possible Left atrial enlargement Left ventricular hypertrophy with QRS widening and repolarization abnormality Prolonged QT Abnormal ECG
[2018-01-04] MEDS: Insulin Reg-MEDIUM-Coverage SC SCH (08:52)
[2018-01-04] MEDS ORDERED: Enoxaparin 30 mg Syringe SC SCH (10:00)
[2018-01-04 10:37] LABS: CALCIUM 8.3 mg/dL (8.4-10.5)
[2018-01-04] MEDS: Insulin Lispro (humaLOG) MEDIUM Coverage SC SCH ×3 (12:09→22:00)
--- NOTE | 2018-01-04 12:14 | CP.CCUPN ---
<Lyndon Jung - Last Filed: 01/04/18 14:06> CCU Subjective - Physician Review Events Since Last Encounter (Free Text): Lyndon Jung, PGY-1 ICU progress note Patient seen and examined at bedside. No complaints overnight. Has good appetite in the morning. Blood culture and urine culture are pending. Blood pressure is stable. Spoke with nephrology who said to continue the 3% saline and discontinue the 0.45% saline. Patient admits to fatigue but denies chest pain, SOB, headaches, abdominal pain and urinary complaints. 12 point ROS were noted here, otherwise negative. CCU Objective - Vital Signs / Intake & Output Vital Signs (Last 4 hours): Vital Signs Pulse Resp BP Pulse Ox 01/04/18 10:00 96 H 13 119/54 L 97 01/04/18 09:50 96 H 24 100 01/04/18 09:40 96 H 20 98 01/04/18 09:30 94 H 17 99 01/04/18 09:20 94 H 100 01/04/18 09:10 93 H 19 100 01/04/18 09:00 92 H 22 134/61 95 01/04/18 08:50 96 H 100 01/04/18 08:47 95 H 128/58 L 99 01/04/18 08:40 96 01/04/18 08:30 99 01/04/18 08:20 100 01/04/18 08:10 97 H 77 H 81 L Intake and Output (Last 8hrs): Intake & Output 01/03/18 01/04/18 01/04/18 22:59 06:59 14:59 Intake Total 750 Output Total 700 Balance 50 Weight 128 lb Intake: IV 650 Right Antecubital 650 Oral 100 Output: Urine 700 Urethral (Amaral) 700 Other: Voiding Method Indwelling Catheter # Bowel Movements 0 - Physical Exam Head: Positive for: Atraumatic Pupils: Positive for: PERRL Mouth: Positive for: Dry Pharnyx: Negative for: ERYTHEMA Neck: Positive for: Normal Range of Motion. Negative for: Meningeal Signs Respiratory/Chest: Positive for: Clear to Auscultation. Negative for: Wheezes Cardiovascular: Positive for: Regular Rate and Rhythm, Murmurs Abdomen: Positive for: Tenderness. Negative for: Distention, Peritoneal Signs, Rebound, Guarding Rectal: Negative for: Gross Blood Back: Negative for: CVA Tenderness Upper Extremity: Negative for: Cyanosis Lower Extremity: Negative for: Edema Neurological: Positive for: Other (has delayed responses but answers questions appropriately.) Skin: Positive for: Warm Psychiatric: Positive for: Alert. Negative for: Normal Concentration - Medications Active Medications: Active Medications Generic Name Dose Route Start Last Admin Trade Name Freq PRN Reason Stop Dose Admin Acetaminophen 650 mg 01/03/18 19:40 01/04/18 08:44 Tylenol 325mg Tab PO 650 mg Q6H PRN Administration Pain, Mild (1-3) Aspirin 81 mg 01/04/18 10:00 01/04/18 09:13 Aspirin Chewable PO 81 mg DAILY JAK Administration Sodium Chloride 500 mls @ 20 mls/hr 01/03/18 16:15 01/03/18 17:30 Hypertonic Saline 3% IV 20 mls/hr .Q24H JAK Administration Insulin Human Lispro 0 units 01/03/18 22:00 Humalog Med SC ACHS JAK Protocol Isosorbide Mononitrate 60 mg 01/04/18 10:00 01/04/18 09:13 Imdur PO 60 mg DAILY JAK Administration Pantoprazole Sodium 40 mg 01/05/18 07:30 Protonix Ec Tab PO ACB JAK - Patient Studies Lab Studies: Lab Studies 01/04/18 01/04/18 01/04/18 Range/Units 10:15 07:45 05:30 WBC (4.5-11.0) 10^3/ul RBC (3.5-6.1) 10^6/uL Hgb (12.0-16.0) g/dL Hct (36.0-48.0) % MCV (80.0-105.0) fl MCH (25.0-35.0) pg MCHC (31.0-37.0) g/dl RDW (11.5-14.5) % Plt Count (120.0-450.0) 10^3/uL MPV (7.0-11.0) fl Gran % (50.0-68.0) % Lymph % (Auto) (22.0-35.0) % Vance % (Auto) (1.0-6.0) % Eos % (Auto) (1.5-5.0) % Baso % (Auto) (0.0-3.0) % Gran # (1.4-6.5) Lymph # (Auto) (1.2-3.4) Vance # (Auto) (0.1-0.6) Eos # (Auto) (0.0-0.7) Baso # (Auto) (0.0-2.0) K/mm3 Sodium 113 L* (132-148) mmol/L Potassium 4.0 (3.6-5.0) mmol/L Chloride 75 L (98-107) mmol/L Carbon Dioxide 25 (21-33) mmol/L Anion Gap 17 (10-20) BUN 54 H (7-21) mg/dL Creatinine 2.4 H (0.7-1.2) mg/dl Est GFR ( Amer) 23 Est GFR (Non-Af Amer) 19 POC Glucose (mg/dL) 293 H (65-110) mg/dL Random Glucose 325 H* D (70-110) mg/dL Uric Acid 12.1 H (2.5-6.2) mg/dL Calcium 8.3 L (8.4-10.5) mg/dL Phosphorus (2.5-4.5) mg/dL Magnesium (1.7-2.2) mg/dL Total Bilirubin (0.2-1.3) mg/dL AST (14-36) U/L ALT (7-56) U/L Alkaline Phosphatase (38-126) U/L Total Protein (5.8-8.3) g/dL Albumin (3.0-4.8) g/dL Globulin gm/dL Albumin/Globulin Ratio (1.1-1.8) Urine Color (YELLOW) Urine Appearance (CLEAR) Urine pH (4.7-8.0) Ur Specific [place] (1.005-1.035) Urine Protein (<30 mg/dL) mg/dL Urine Glucose (UA) (NEGATIVE) mg/dL Urine Ketones (NEGATIVE) mg/dL Urine Blood (NEGATIVE) Urine Nitrate (NEGATIVE) Urine Bilirubin (NEGATIVE) Urine Urobilinogen (<1 E.U./dL) E.U./dL Ur Leukocyte Esterase (NEGATIVE) Carmen/uL Urine RBC (0-2) /hpf Urine WBC (0-6) /hpf Ur Epithelial Cells (0-5) /hpf Urine Osmolality (300-1000) mosm/kg Ur Random Sodium meq/L 01/04/18 01/04/18 01/04/18 Range/Units 05:00 05:00 02:00 WBC 14.5 H (4.5-11.0) 10^3/ul RBC 4.27 (3.5-6.1) 10^6/uL Hgb 13.7 (12.0-16.0) g/dL Hct 37.0 (36.0-48.0) % MCV 86.7 (80.0-105.0) fl MCH 32.1 (25.0-35.0) pg MCHC 37.0 (31.0-37.0) g/dl RDW 14.4 (11.5-14.5) % Plt Count 201 (120.0-450.0) 10^3/uL MPV 9.8 (7.0-11.0) fl Gran % 66.2 (50.0-68.0) % Lymph % (Auto) 21.3 L (22.0-35.0) % Vance % (Auto) 11.9 H (1.0-6.0) % Eos % (Auto) 0.5 L (1.5-5.0) % Baso % (Auto) 0.1 (0.0-3.0) % Gran # 9.60 H (1.4-6.5) Lymph # (Auto) 3.1 (1.2-3.4) Vance # (Auto) 1.7 H (0.1-0.6) Eos # (Auto) 0.1 (0.0-0.7) Baso # (Auto) 0.02 (0.0-2.0) K/mm3 Sodium 112 L* 111 L* (132-148) mmol/L Potassium 4.0 4.2 (3.6-5.0) mmol/L Chloride 72 L 70 L (98-107) mmol/L Carbon Dioxide 29 28 (21-33) mmol/L Anion Gap 16 16 (10-20) BUN 53 H 53 H (7-21) mg/dL Creatinine 2.6 H 2.9 H (0.7-1.2) mg/dl Est GFR ( Amer) 21 19 Est GFR (Non-Af Amer) 18 15 POC Glucose (mg/dL) (65-110) mg/dL Random Glucose 250 H 243 H (70-110) mg/dL Uric Acid (2.5-6.2) mg/dL Calcium 8.5 8.5 (8.4-10.5) mg/dL Phosphorus 4.3 (2.5-4.5) mg/dL Magnesium 1.9 (1.7-2.2) mg/dL Total Bilirubin 1.5 H (0.2-1.3) mg/dL AST 54 H (14-36) U/L ALT 40 (7-56) U/L Alkaline Phosphatase 129 H (38-126) U/L Total Protein 6.5 (5.8-8.3) g/dL Albumin 3.7 (3.0-4.8) g/dL Globulin 2.9 gm/dL Albumin/Globulin Ratio 1.3 (1.1-1.8) Urine Color (YELLOW) Urine Appearance (CLEAR) Urine pH (4.7-8.0) Ur Specific [place] (1.005-1.035) Urine Protein (<30 mg/dL) mg/dL Urine Glucose (UA) (NEGATIVE) mg/dL Urine Ketones (NEGATIVE) mg/dL Urine Blood (NEGATIVE) Urine Nitrate (NEGATIVE) Urine Bilirubin (NEGATIVE) Urine Urobilinogen (<1 E.U./dL) E.U./dL Ur Leukocyte Esterase (NEGATIVE) Carmen/uL Urine RBC (0-2) /hpf Urine WBC (0-6) /hpf Ur Epithelial Cells (0-5) /hpf Urine Osmolality (300-1000) mosm/kg Ur Random Sodium meq/L 01/03/18 01/03/18 01/03/18 Range/Units 22:41 22:05 17:10 WBC (4.5-11.0) 10^3/ul RBC (3.5-6.1) 10^6/uL Hgb (12.0-16.0) g/dL Hct (36.0-48.0) % MCV (80.0-105.0) fl MCH (25.0-35.0) pg MCHC (31.0-37.0) g/dl RDW (11.5-14.5) % Plt Count (120.0-450.0) 10^3/uL MPV (7.0-11.0) fl Gran % (50.0-68.0) % Lymph % (Auto) (22.0-35.0) % Vance % (Auto) (1.0-6.0) % Eos % (Auto) (1.5-5.0) % Baso % (Auto) (0.0-3.0) % Gran # (1.4-6.5) Lymph # (Auto) (1.2-3.4) Vance # (Auto) (0.1-0.6) Eos # (Auto) (0.0-0.7) Baso # (Auto) (0.0-2.0) K/mm3 Sodium 110 L* (132-148) mmol/L Potassium 4.6 (3.6-5.0) mmol/L Chloride 68 L (98-107) mmol/L Carbon Dioxide 31 (21-33) mmol/L Anion Gap 16 (10-20) BUN 55 H (7-21) mg/dL Creatinine 2.6 H (0.7-1.2) mg/dl Est GFR ( Amer) 21 Est GFR (Non-Af Amer) 18 POC Glucose (mg/dL) 210 H (65-110) mg/dL Random Glucose 185 H (70-110) mg/dL Uric Acid (2.5-6.2) mg/dL Calcium 8.8 (8.4-10.5) mg/dL Phosphorus 4.5 (2.5-4.5) mg/dL Magnesium 1.9 (1.7-2.2) mg/dL Total Bilirubin (0.2-1.3) mg/dL AST (14-36) U/L ALT (7-56) U/L Alkaline Phosphatase (38-126) U/L Total Protein (5.8-8.3) g/dL Albumin (3.0-4.8) g/dL Globulin gm/dL Albumin/Globulin Ratio (1.1-1.8) Urine Color (YELLOW) Urine Appearance (CLEAR) Urine pH (4.7-8.0) Ur Specific [place] (1.005-1.035) Urine Protein (<30 mg/dL) mg/dL Urine Glucose (UA) (NEGATIVE) mg/dL Urine Ketones (NEGATIVE) mg/dL Urine Blood (NEGATIVE) Urine Nitrate (NEGATIVE) Urine Bilirubin (NEGATIVE) Urine Urobilinogen (<1 E.U./dL) E.U./dL Ur Leukocyte Esterase (NEGATIVE) Carmen/uL Urine RBC (0-2) /hpf Urine WBC (0-6) /hpf Ur Epithelial Cells (0-5) /hpf Urine Osmolality (300-1000) mosm/kg Ur Random Sodium 43 meq/L 01/03/18 01/03/18 Range/Units 17:10 17:10 WBC (4.5-11.0) 10^3/ul RBC (3.5-6.1) 10^6/uL Hgb (12.0-16.0) g/dL Hct (36.0-48.0) % MCV (80.0-105.0) fl MCH (25.0-35.0) pg MCHC (31.0-37.0) g/dl RDW (11.5-14.5) % Plt Count (120.0-450.0) 10^3/uL MPV (7.0-11.0) fl Gran % (50.0-68.0) % Lymph % (Auto) (22.0-35.0) % Vance % (Auto) (1.0-6.0) % Eos % (Auto) (1.5-5.0) % Baso % (Auto) (0.0-3.0) % Gran # (1.4-6.5) Lymph # (Auto) (1.2-3.4) Vance # (Auto) (0.1-0.6) Eos # (Auto) (0.0-0.7) Baso # (Auto) (0.0-2.0) K/mm3 Sodium (132-148) mmol/L Potassium (3.6-5.0) mmol/L Chloride (98-107) mmol/L Carbon Dioxide (21-33) mmol/L Anion Gap (10-20) BUN (7-21) mg/dL Creatinine (0.7-1.2) mg/dl Est GFR ( Amer) Est GFR (Non-Af Amer) POC Glucose (mg/dL) (65-110) mg/dL Random Glucose (70-110) mg/dL Uric Acid (2.5-6.2) mg/dL Calcium (8.4-10.5) mg/dL Phosphorus (2.5-4.5) mg/dL Magnesium (1.7-2.2) mg/dL Total Bilirubin (0.2-1.3) mg/dL AST (14-36) U/L ALT (7-56) U/L Alkaline Phosphatase (38-126) U/L Total Protein (5.8-8.3) g/dL Albumin (3.0-4.8) g/dL Globulin gm/dL Albumin/Globulin Ratio (1.1-1.8) Urine Color yellow (YELLOW) Urine Appearance Clear (CLEAR) Urine pH 6.0 (4.7-8.0) Ur Specific [place] 1.015 (1.005-1.035) Urine Protein 100 H (<30 mg/dL) mg/dL Urine Glucose (UA) Negative (NEGATIVE) mg/dL Urine Ketones Negative (NEGATIVE) mg/dL Urine Blood Small H (NEGATIVE) Urine Nitrate Negative (NEGATIVE) Urine Bilirubin Negative (NEGATIVE) Urine Urobilinogen 1.0 H (<1 E.U./dL) E.U./dL Ur Leukocyte Esterase Trace H (NEGATIVE) Carmen/uL Urine RBC 10 - 15 (0-2) /hpf Urine WBC 5 - 10 (0-6) /hpf Ur Epithelial Cells 10 - 12 (0-5) /hpf Urine Osmolality 294 L (300-1000) mosm/kg Ur Random Sodium meq/L Laboratory Results - last 24 hr 01/03/18 01/03/18 01/03/18 17:10 17:10 17:10 WBC RBC Hgb Hct MCV MCH MCHC RDW Plt Count MPV Gran % Lymph % (Auto) Vance % (Auto) Eos % (Auto) Baso % (Auto) Gran # Lymph # (Auto) Vance # (Auto) Eos # (Auto) Baso # (Auto) Sodium Potassium Chloride Carbon Dioxide Anion Gap BUN Creatinine Est GFR ( Amer) Est GFR (Non-Af Amer) POC Glucose (mg/dL) Random Glucose Uric Acid Calcium Phosphorus Magnesium Total Bilirubin AST ALT Alkaline Phosphatase Total Protein Albumin Globulin Albumin/Globulin Ratio Urine Color yellow Urine Appearance Clear Urine pH 6.0 Ur Specific [place] 1.015 Urine Protein 100 H Urine Glucose (UA) Negative Urine Ketones Negative Urine Blood Small H Urine Nitrate Negative Urine Bilirubin Negative Urine Urobilinogen 1.0 H Ur Leukocyte Esterase Trace H Urine RBC 10 - 15 Urine WBC 5 - 10 Ur Epithelial Cells 10 - 12 Urine Osmolality 294 L Ur Random Sodium 43 01/03/18 01/03/18 01/04/18 22:05 22:41 02:00 WBC RBC Hgb Hct MCV MCH MCHC RDW Plt Count MPV Gran % Lymph % (Auto) Vance % (Auto) Eos % (Auto) Baso % (Auto) Gran # Lymph # (Auto) Vance # (Auto) Eos # (Auto) Baso # (Auto) Sodium 110 L* 111 L* Potassium 4.6 4.2 Chloride 68 L 70 L Carbon Dioxide 31 28 Anion Gap 16 16 BUN 55 H 53 H Creatinine 2.6 H 2.9 H Est GFR ( Amer) 21 19 Est GFR (Non-Af Amer) 18 15 POC Glucose (mg/dL) 210 H Random Glucose 185 H 243 H Uric Acid Calcium 8.8 8.5 Phosphorus 4.5 Magnesium 1.9 Total Bilirubin AST ALT Alkaline Phosphatase Total Protein Albumin Globulin Albumin/Globulin Ratio Urine Color Urine Appearance Urine pH Ur Specific [place] Urine Protein Urine Glucose (UA) Urine Ketones Urine Blood Urine Nitrate Urine Bilirubin Urine Urobilinogen Ur Leukocyte Esterase Urine RBC Urine WBC Ur Epithelial Cells Urine Osmolality Ur Random Sodium 01/04/18 01/04/18 01/04/18 05:00 05:00 05:30 WBC 14.5 H RBC 4.27 Hgb 13.7 Hct 37.0 MCV 86.7 MCH 32.1 MCHC 37.0 RDW 14.4 Plt Count 201 MPV 9.8 Gran % 66.2 Lymph % (Auto) 21.3 L Vance % (Auto) 11.9 H Eos % (Auto) 0.5 L Baso % (Auto) 0.1 Gran # 9.60 H Lymph # (Auto) 3.1 Vance # (Auto) 1.7 H Eos # (Auto) 0.1 Baso # (Auto) 0.02 Sodium 112 L* Potassium 4.0 Chloride 72 L Carbon Dioxide 29 Anion Gap 16 BUN 53 H Creatinine 2.6 H Est GFR ( Amer) 21 Est GFR (Non-Af Amer) 18 POC Glucose (mg/dL) Random Glucose 250 H Uric Acid 12.1 H Calcium 8.5 Phosphorus 4.3 Magnesium 1.9 Total Bilirubin 1.5 H AST 54 H ALT 40 Alkaline Phosphatase 129 H Total Protein 6.5 Albumin 3.7 Globulin 2.9 Albumin/Globulin Ratio 1.3 Urine Color Urine Appearance Urine pH Ur Specific [place] Urine Protein Urine Glucose (UA) Urine Ketones Urine Blood Urine Nitrate Urine Bilirubin Urine Urobilinogen Ur Leukocyte Esterase Urine RBC Urine WBC Ur Epithelial Cells Urine Osmolality Ur Random Sodium 01/04/18 01/04/18 07:45 10:15 WBC RBC Hgb Hct MCV MCH MCHC RDW Plt Count MPV Gran % Lymph % (Auto) Vance % (Auto) Eos % (Auto) Baso % (Auto) Gran # Lymph # (Auto) Vance # (Auto) Eos # (Auto) Baso # (Auto) Sodium 113 L* Potassium 4.0 Chloride 75 L Carbon Dioxide 25 Anion Gap 17 BUN 54 H Creatinine 2.4 H Est GFR ( Amer) 23 Est GFR (Non-Af Amer) 19 POC Glucose (mg/dL) 293 H Random Glucose 325 H* D Uric Acid Calcium 8.3 L Phosphorus Magnesium Total Bilirubin AST ALT Alkaline Phosphatase Total Protein Albumin Globulin Albumin/Globulin Ratio Urine Color Urine Appearance Urine pH Ur Specific [place] Urine Protein Urine Glucose (UA) Urine Ketones Urine Blood Urine Nitrate Urine Bilirubin Urine Urobilinogen Ur Leukocyte Esterase Urine RBC Urine WBC Ur Epithelial Cells Urine Osmolality Ur Random Sodium EKG/Cardiology Studies: Cardiology / EKG Studies 01/03/18 17:27 EKG [ELECTROCARDIOGRAM] Stat Comment: Reason For Exam: ABNORMAL LABS Fingerstick Blood Sugar Results: 293 Critical Care Progress Note - Nutrition Nutrition: Nutrition Category Date Time Status Heart Healthy Diet [DIET] Diets 01/03/18 Breakfast Active Assessment/Plan - Assessment and Plan (Free Text) Assessment: Assessment: This is a 82 year old female with PMH significant for CKD, history of hyponatermia, CHF and cirrhosis presenting to the ICU for management of hyponatremia. Plan: Neuro: -Head CT on 01/03 showed no acute abnormalities -maintain normothermia Lungs: -maintain SaO2>90, Cardio: -maintain MAP>65 Nephro: -Sodium today is 113 from presentation of 110 -maintain euvolemia, avoid hypochloremia -continue 3% NaCl @ 20ml/hr, discontinue 0.45% NaCl per nephrology -BUN/Cr is 53/2.6, history of CKD -urine/serum osmolality pending -Nephrology consulted, follow recommendations GI: -history of GI AVM -pantoprazole prophylaxis Heme: -continue ASA 81 -SCD prophylaxis, lovenox discontinued due to GI bleed history ID: -WBC is downtrending, afebrile -Ceftriaxone and metronidazole given in ED. Currently not on antibiotics. -Blood cultures, urine culture and MRSA culture pending Endo: -maintain euglycemia, on sliding scale. <Titus Grimes - Last Filed: 01/04/18 14:24> CCU Objective - Vital Signs / Intake & Output Intake and Output (Last 8hrs): Intake & Output 01/03/18 01/04/18 01/04/18 22:59 06:59 14:59 Intake Total 750 Output Total 700 Balance 50 Weight 128 lb Intake: IV 650 Right Antecubital 650 Oral 100 Output: Urine 700 Urethral (Amaral) 700 Other: Voiding Method Indwelling Catheter # Bowel Movements 0 - Medications Active Medications: Active Medications Generic Name Dose Route Start Last Admin Trade Name Freq PRN Reason Stop Dose Admin Acetaminophen 650 mg 01/03/18 19:40 01/04/18 08:44 Tylenol 325mg Tab PO 650 mg Q6H PRN Administration Pain, Mild (1-3) Aspirin 81 mg 01/04/18 10:00 01/04/18 09:13 Aspirin Chewable PO 81 mg DAILY JAK Administration Sodium Chloride 500 mls @ 20 mls/hr 01/03/18 16:15 01/03/18 17:30 Hypertonic Saline 3% IV 20 mls/hr .Q24H JAK Administration Insulin Human Lispro 0 units 01/03/18 22:00 Humalog Med SC ACHS [facility] Protocol Isosorbide Mononitrate 60 mg 01/04/18 10:00 01/04/18 09:13 Imdur PO 60 mg DAILY JAK Administration Pantoprazole Sodium 40 mg 01/05/18 07:30 Protonix Ec Tab PO ACB JAK - Patient Studies Lab Studies: Lab Studies 01/04/18 01/04/18 01/04/18 Range/Units 10:15 07:45 05:30 WBC (4.5-11.0) 10^3/ul RBC (3.5-6.1) 10^6/uL Hgb (12.0-16.0) g/dL Hct (36.0-48.0) % MCV (80.0-105.0) fl MCH (25.0-35.0) pg MCHC (31.0-37.0) g/dl RDW (11.5-14.5) % Plt Count (120.0-450.0) 10^3/uL MPV (7.0-11.0) fl Gran % (50.0-68.0) % Lymph % (Auto) (22.0-35.0) % Vance % (Auto) (1.0-6.0) % Eos % (Auto) (1.5-5.0) % Baso % (Auto) (0.0-3.0) % Gran # (1.4-6.5) Lymph # (Auto) (1.2-3.4) Vance # (Auto) (0.1-0.6) Eos # (Auto) (0.0-0.7) Baso # (Auto) (0.0-2.0) K/mm3 Sodium 113 L* (132-148) mmol/L Potassium 4.0 (3.6-5.0) mmol/L Chloride 75 L (98-107) mmol/L Carbon Dioxide 25 (21-33) mmol/L Anion Gap 17 (10-20) BUN 54 H (7-21) mg/dL Creatinine 2.4 H (0.7-1.2) mg/dl Est GFR ( Amer) 23 Est GFR (Non-Af Amer) 19 POC Glucose (mg/dL) 293 H (65-110) mg/dL Random Glucose 325 H* D (70-110) mg/dL Uric Acid 12.1 H (2.5-6.2) mg/dL Calcium 8.3 L (8.4-10.5) mg/dL Phosphorus (2.5-4.5) mg/dL Magnesium (1.7-2.2) mg/dL Total Bilirubin (0.2-1.3) mg/dL AST (14-36) U/L ALT (7-56) U/L Alkaline Phosphatase (38-126) U/L Total Protein (5.8-8.3) g/dL Albumin (3.0-4.8) g/dL Globulin gm/dL Albumin/Globulin Ratio (1.1-1.8) Urine Color (YELLOW) Urine Appearance (CLEAR) Urine pH (4.7-8.0) Ur Specific [place] (1.005-1.035) Urine Protein (<30 mg/dL) mg/dL Urine Glucose (UA) (NEGATIVE) mg/dL Urine Ketones (NEGATIVE) mg/dL Urine Blood (NEGATIVE) Urine Nitrate (NEGATIVE) Urine Bilirubin (NEGATIVE) Urine Urobilinogen (<1 E.U./dL) E.U./dL Ur Leukocyte Esterase (NEGATIVE) Carmen/uL Urine RBC (0-2) /hpf Urine WBC (0-6) /hpf Ur Epithelial Cells (0-5) /hpf Urine Osmolality (300-1000) mosm/kg Ur Random Sodium meq/L 01/04/18 01/04/18 01/04/18 Range/Units 05:00 05:00 02:00 WBC 14.5 H (4.5-11.0) 10^3/ul RBC 4.27 (3.5-6.1) 10^6/uL Hgb 13.7 (12.0-16.0) g/dL Hct 37.0 (36.0-48.0) % MCV 86.7 (80.0-105.0) fl MCH 32.1 (25.0-35.0) pg MCHC 37.0 (31.0-37.0) g/dl RDW 14.4 (11.5-14.5) % Plt Count 201 (120.0-450.0) 10^3/uL MPV 9.8 (7.0-11.0) fl Gran % 66.2 (50.0-68.0) % Lymph % (Auto) 21.3 L (22.0-35.0) % Vance % (Auto) 11.9 H (1.0-6.0) % Eos % (Auto) 0.5 L (1.5-5.0) % Baso % (Auto) 0.1 (0.0-3.0) % Gran # 9.60 H (1.4-6.5) Lymph # (Auto) 3.1 (1.2-3.4) Vance # (Auto) 1.7 H (0.1-0.6) Eos # (Auto) 0.1 (0.0-0.7) Baso # (Auto) 0.02 (0.0-2.0) K/mm3 Sodium 112 L* 111 L* (132-148) mmol/L Potassium 4.0 4.2 (3.6-5.0) mmol/L Chloride 72 L 70 L (98-107) mmol/L Carbon Dioxide 29 28 (21-33) mmol/L Anion Gap 16 16 (10-20) BUN 53 H 53 H (7-21) mg/dL Creatinine 2.6 H 2.9 H (0.7-1.2) mg/dl Est GFR ( Amer) 21 19 Est GFR (Non-Af Amer) 18 15 POC Glucose (mg/dL) (65-110) mg/dL Random Glucose 250 H 243 H (70-110) mg/dL Uric Acid (2.5-6.2) mg/dL Calcium 8.5 8.5 (8.4-10.5) mg/dL Phosphorus 4.3 (2.5-4.5) mg/dL Magnesium 1.9 (1.7-2.2) mg/dL Total Bilirubin 1.5 H (0.2-1.3) mg/dL AST 54 H (14-36) U/L ALT 40 (7-56) U/L Alkaline Phosphatase 129 H (38-126) U/L Total Protein 6.5 (5.8-8.3) g/dL Albumin 3.7 (3.0-4.8) g/dL Globulin 2.9 gm/dL Albumin/Globulin Ratio 1.3 (1.1-1.8) Urine Color (YELLOW) Urine Appearance (CLEAR) Urine pH (4.7-8.0) Ur Specific [place] (1.005-1.035) Urine Protein (<30 mg/dL) mg/dL Urine Glucose (UA) (NEGATIVE) mg/dL Urine Ketones (NEGATIVE) mg/dL Urine Blood (NEGATIVE) Urine Nitrate (NEGATIVE) Urine Bilirubin (NEGATIVE) Urine Urobilinogen (<1 E.U./dL) E.U./dL Ur Leukocyte Esterase (NEGATIVE) Carmen/uL Urine RBC (0-2) /hpf Urine WBC (0-6) /hpf Ur Epithelial Cells (0-5) /hpf Urine Osmolality (300-1000) mosm/kg Ur Random Sodium meq/L 01/03/18 01/03/18 01/03/18 Range/Units 22:41 22:05 17:10 WBC (4.5-11.0) 10^3/ul RBC (3.5-6.1) 10^6/uL Hgb (12.0-16.0) g/dL Hct (36.0-48.0) % MCV (80.0-105.0) fl MCH (25.0-35.0) pg MCHC (31.0-37.0) g/dl RDW (11.5-14.5) % Plt Count (120.0-450.0) 10^3/uL MPV (7.0-11.0) fl Gran % (50.0-68.0) % Lymph % (Auto) (22.0-35.0) % Vance % (Auto) (1.0-6.0) % Eos % (Auto) (1.5-5.0) % Baso % (Auto) (0.0-3.0) % Gran # (1.4-6.5) Lymph # (Auto) (1.2-3.4) Vance # (Auto) (0.1-0.6) Eos # (Auto) (0.0-0.7) Baso # (Auto) (0.0-2.0) K/mm3 Sodium 110 L* (132-148) mmol/L Potassium 4.6 (3.6-5.0) mmol/L Chloride 68 L (98-107) mmol/L Carbon Dioxide 31 (21-33) mmol/L Anion Gap 16 (10-20) BUN 55 H (7-21) mg/dL Creatinine 2.6 H (0.7-1.2) mg/dl Est GFR ( Amer) 21 Est GFR (Non-Af Amer) 18 POC Glucose (mg/dL) 210 H (65-110) mg/dL Random Glucose 185 H (70-110) mg/dL Uric Acid (2.5-6.2) mg/dL Calcium 8.8 (8.4-10.5) mg/dL Phosphorus 4.5 (2.5-4.5) mg/dL Magnesium 1.9 (1.7-2.2) mg/dL Total Bilirubin (0.2-1.3) mg/dL AST (14-36) U/L ALT (7-56) U/L Alkaline Phosphatase (38-126) U/L Total Protein (5.8-8.3) g/dL Albumin (3.0-4.8) g/dL Globulin gm/dL Albumin/Globulin Ratio (1.1-1.8) Urine Color (YELLOW) Urine Appearance (CLEAR) Urine pH (4.7-8.0) Ur Specific [place] (1.005-1.035) Urine Protein (<30 mg/dL) mg/dL Urine Glucose (UA) (NEGATIVE) mg/dL Urine Ketones (NEGATIVE) mg/dL Urine Blood (NEGATIVE) Urine Nitrate (NEGATIVE) Urine Bilirubin (NEGATIVE) Urine Urobilinogen (<1 E.U./dL) E.U./dL Ur Leukocyte Esterase (NEGATIVE) Carmen/uL Urine RBC (0-2) /hpf Urine WBC (0-6) /hpf Ur Epithelial Cells (0-5) /hpf Urine Osmolality (300-1000) mosm/kg Ur Random Sodium 43 meq/L 01/03/18 01/03/18 Range/Units 17:10 17:10 WBC (4.5-11.0) 10^3/ul RBC (3.5-6.1) 10^6/uL Hgb (12.0-16.0) g/dL Hct (36.0-48.0) % MCV (80.0-105.0) fl MCH (25.0-35.0) pg MCHC (31.0-37.0) g/dl RDW (11.5-14.5) % Plt Count (120.0-450.0) 10^3/uL MPV (7.0-11.0) fl Gran % (50.0-68.0) % Lymph % (Auto) (22.0-35.0) % Vance % (Auto) (1.0-6.0) % Eos % (Auto) (1.5-5.0) % Baso % (Auto) (0.0-3.0) % Gran # (1.4-6.5) Lymph # (Auto) (1.2-3.4) Vance # (Auto) (0.1-0.6) Eos # (Auto) (0.0-0.7) Baso # (Auto) (0.0-2.0) K/mm3 Sodium (132-148) mmol/L Potassium (3.6-5.0) mmol/L Chloride (98-107) mmol/L Carbon Dioxide (21-33) mmol/L Anion Gap (10-20) BUN (7-21) mg/dL Creatinine (0.7-1.2) mg/dl Est GFR ( Amer) Est GFR (Non-Af Amer) POC Glucose (mg/dL) (65-110) mg/dL Random Glucose (70-110) mg/dL Uric Acid (2.5-6.2) mg/dL Calcium (8.4-10.5) mg/dL Phosphorus (2.5-4.5) mg/dL Magnesium (1.7-2.2) mg/dL Total Bilirubin (0.2-1.3) mg/dL AST (14-36) U/L ALT (7-56) U/L Alkaline Phosphatase (38-126) U/L Total Protein (5.8-8.3) g/dL Albumin (3.0-4.8) g/dL Globulin gm/dL Albumin/Globulin Ratio (1.1-1.8) Urine Color yellow (YELLOW) Urine Appearance Clear (CLEAR) Urine pH 6.0 (4.7-8.0) Ur Specific [place] 1.015 (1.005-1.035) Urine Protein 100 H (<30 mg/dL) mg/dL Urine Glucose (UA) Negative (NEGATIVE) mg/dL Urine Ketones Negative (NEGATIVE) mg/dL Urine Blood Small H (NEGATIVE) Urine Nitrate Negative (NEGATIVE) Urine Bilirubin Negative (NEGATIVE) Urine Urobilinogen 1.0 H (<1 E.U./dL) E.U./dL Ur Leukocyte Esterase Trace H (NEGATIVE) Carmen/uL Urine RBC 10 - 15 (0-2) /hpf Urine WBC 5 - 10 (0-6) /hpf Ur Epithelial Cells 10 - 12 (0-5) /hpf Urine Osmolality 294 L (300-1000) mosm/kg Ur Random Sodium meq/L Laboratory Results - last 24 hr 01/03/18 01/03/18 01/03/18 17:10 17:10 17:10 WBC RBC Hgb Hct MCV MCH MCHC RDW Plt Count MPV Gran % Lymph % (Auto) Vance % (Auto) Eos % (Auto) Baso % (Auto) Gran # Lymph # (Auto) Vance # (Auto) Eos # (Auto) Baso # (Auto) Sodium Potassium Chloride Carbon Dioxide Anion Gap BUN Creatinine Est GFR ( Amer) Est GFR (Non-Af Amer) POC Glucose (mg/dL) Random Glucose Uric Acid Calcium Phosphorus Magnesium Total Bilirubin AST ALT Alkaline Phosphatase Total Protein Albumin Globulin Albumin/Globulin Ratio Urine Color yellow Urine Appearance Clear Urine pH 6.0 Ur Specific [place] 1.015 Urine Protein 100 H Urine Glucose (UA) Negative Urine Ketones Negative Urine Blood Small H Urine Nitrate Negative Urine Bilirubin Negative Urine Urobilinogen 1.0 H Ur Leukocyte Esterase Trace H Urine RBC 10 - 15 Urine WBC 5 - 10 Ur Epithelial Cells 10 - 12 Urine Osmolality 294 L Ur Random Sodium 43 01/03/18 01/03/18 01/04/18 22:05 22:41 02:00 WBC RBC Hgb Hct MCV MCH MCHC RDW Plt Count MPV Gran % Lymph % (Auto) Vance % (Auto) Eos % (Auto) Baso % (Auto) Gran # Lymph # (Auto) Vance # (Auto) Eos # (Auto) Baso # (Auto) Sodium 110 L* 111 L* Potassium 4.6 4.2 Chloride 68 L 70 L Carbon Dioxide 31 28 Anion Gap 16 16 BUN 55 H 53 H Creatinine 2.6 H 2.9 H Est GFR ( Amer) 21 19 Est GFR (Non-Af Amer) 18 15 POC Glucose (mg/dL) 210 H Random Glucose 185 H 243 H Uric Acid Calcium 8.8 8.5 Phosphorus 4.5 Magnesium 1.9 Total Bilirubin AST ALT Alkaline Phosphatase Total Protein Albumin Globulin Albumin/Globulin Ratio Urine Color Urine Appearance Urine pH Ur Specific [place] Urine Protein Urine Glucose (UA) Urine Ketones Urine Blood Urine Nitrate Urine Bilirubin Urine Urobilinogen Ur Leukocyte Esterase Urine RBC Urine WBC Ur Epithelial Cells Urine Osmolality Ur Random Sodium 01/04/18 01/04/18 01/04/18 05:00 05:00 05:30 WBC 14.5 H RBC 4.27 Hgb 13.7 Hct 37.0 MCV 86.7 MCH 32.1 MCHC 37.0 RDW 14.4 Plt Count 201 MPV 9.8 Gran % 66.2 Lymph % (Auto) 21.3 L Vance % (Auto) 11.9 H Eos % (Auto) 0.5 L Baso % (Auto) 0.1 Gran # 9.60 H Lymph # (Auto) 3.1 Vance # (Auto) 1.7 H Eos # (Auto) 0.1 Baso # (Auto) 0.02 Sodium 112 L* Potassium 4.0 Chloride 72 L Carbon Dioxide 29 Anion Gap 16 BUN 53 H Creatinine 2.6 H Est GFR ( Amer) 21 Est GFR (Non-Af Amer) 18 POC Glucose (mg/dL) Random Glucose 250 H Uric Acid 12.1 H Calcium 8.5 Phosphorus 4.3 Magnesium 1.9 Total Bilirubin 1.5 H AST 54 H ALT 40 Alkaline Phosphatase 129 H Total Protein 6.5 Albumin 3.7 Globulin 2.9 Albumin/Globulin Ratio 1.3 Urine Color Urine Appearance Urine pH Ur Specific [place] Urine Protein Urine Glucose (UA) Urine Ketones Urine Blood Urine Nitrate Urine Bilirubin Urine Urobilinogen Ur Leukocyte Esterase Urine RBC Urine WBC Ur Epithelial Cells Urine Osmolality Ur Random Sodium 01/04/18 01/04/18 07:45 10:15 WBC RBC Hgb Hct MCV MCH MCHC RDW Plt Count MPV Gran % Lymph % (Auto) Vance % (Auto) Eos % (Auto) Baso % (Auto) Gran # Lymph # (Auto) Vance # (Auto) Eos # (Auto) Baso # (Auto) Sodium 113 L* Potassium 4.0 Chloride 75 L Carbon Dioxide 25 Anion Gap 17 BUN 54 H Creatinine 2.4 H Est GFR ( Amer) 23 Est GFR (Non-Af Amer) 19 POC Glucose (mg/dL) 293 H Random Glucose 325 H* D Uric Acid Calcium 8.3 L Phosphorus Magnesium Total Bilirubin AST ALT Alkaline Phosphatase Total Protein Albumin Globulin Albumin/Globulin Ratio Urine Color Urine Appearance Urine pH Ur Specific [place] Urine Protein Urine Glucose (UA) Urine Ketones Urine Blood Urine Nitrate Urine Bilirubin Urine Urobilinogen Ur Leukocyte Esterase Urine RBC Urine WBC Ur Epithelial Cells Urine Osmolality Ur Random Sodium EKG/Cardiology Studies: Cardiology / EKG Studies 01/03/18 17:27 EKG [ELECTROCARDIOGRAM] Stat Comment: Reason For Exam: ABNORMAL LABS Critical Care Progress Note - Nutrition Nutrition: Nutrition Category Date Time Status Heart Healthy Diet [DIET] Diets 01/03/18 Breakfast Active Attending/Attestation - Attestation I have personally seen and examined this patient.: Yes I have fully participated in the care of the patient.: Yes I have reviewed all pertinent clinical information: Yes Notes (Text): 01/04/18 14:17 The patient was seen and examined at the bedside. Patient care was discussed with resident Medical records, lab studies, and imaging were reviewed and management issues were discussed and formulated. Agree with above treatment plans as outlined in 's note with addition of the following: Hyponatremia \ NADIYA on CKD \ Elevated LFT \ CIrrhosis \ DM2 \ CHF \ CAD \ ho GI bleed -hemodynamic monitoring to maintain MAP>65 -continue ASA -o2 supplementation to maintain Spo2>90 Pao2>60; currently comfortable on NC -f\u Bun\Cr and U\o; continue 3% saline as per renal team; monitor Ch7 q4Hr -monitor for Na+ correction of 4-6meq in 24hrs as per latest guidelines -renal team following Na+ correction closely and Na increased from 108 to 112 in past 24hrs -PO diet and aspiration precautions -f\u serial LFT -ISS and BGM monitoring -DVT \ PUD prophylaxis CCM f\u 28
[2018-01-04] MEDS: Sodium Chloride 0.9% 1,000 ML IV SCH (14:30)
[2018-01-04 15:46] LABS: CALCIUM 8.8 mg/dL (8.4-10.5)
[2018-01-04 19:18] LABS: CALCIUM 8.2 mg/dL (8.4-10.5)
[2018-01-04 23:01] LABS: CALCIUM 8.3 mg/dL (8.4-10.5)
--- NOTE | 2018-01-04 23:14 | PN ---
Copied To: Harsh Morataya MD Attending MD: Harsh Morataya MD DATE: 01/04/2018 SUBJECTIVE: The patient is 82-year-old, seen and examined, looks much more alert today, seems to be a little shaky. Did eat this morning. PHYSICAL EXAMINATION: VITAL SIGNS: She is afebrile, pulse 91, respirations 18, blood pressure 118/60. LUNGS: Bilateral good airflow. No rhonchi or crackle. HEART: S1 and S2 audible. ABDOMEN: Soft, nontender. No rebound, no guarding. NEUROLOGIC: The patient is awake, alert, oriented. Able to communicate. LABORATORY DATA: WBC is 14.5, hemoglobin 13, hematocrit 37, platelet of 201. Chemistry: Sodium 119, potassium 4, chloride 78, CO2 of 28, BUN 55, creatinine 2.5, blood sugar of 261. Uric acid 12.1, total bilirubin 1.5. Urinalysis shows trace leukocyte. Blood cultures are negative. ASSESSMENT: 1. Symptomatic hyponatremia. 2. History of cirrhosis of liver. 3. Cardiac cirrhosis. 4. Pulmonary hypertension. 5. Congestive heart failure. 6. Hypertension. 7. Insulin-dependent diabetes. 8. History of gastrointestinal bleed in the past. 9. Status post partial colectomy. 10. Coronary artery disease, status post right coronary artery angioplasty. PLAN: Currently, the patient is on aspirin 81 daily. She is on isosorbide. She is on Protonix. We will continue Rocephin. She has normal saline 60 mL per hour. We will follow up her CBC and CMP in a.m. Out of bed to chair. Harsh Morataya MD
[2018-01-05 02:53] LABS: CALCIUM 8.3 mg/dL (8.4-10.5)
--- NOTE | 2018-01-05 03:00 | CON ---
DATE: 01/04/2018 REASON FOR CONSULTATION: Severe symptomatic hyponatremia. HISTORY OF PRESENT ILLNESS: An 82-year-old lady known to me from multiple prior evaluations. The patient was recently discharged from [facility] [place] when she was admitted with pneumonia. The patient was discharged on 12/11/2017. She was sent to halfway. She was on multiple diuretics including Lasix 40 mg, Zaroxolyn 2.5 mg, Aldactone 50 b.i.d. The patient had blood work done in the halfway yesterday. Was found to have a sodium of 107. She was also reportedly somewhat lethargic, somewhat altered. The patient reported her p.o. intake was poor. She also complained of some nausea. In the emergency room, she was found to have a sodium of 108. The patient was admitted to the ICU. Case was discussed with ER attending at length last night. The patient was started on 3% normal saline at 20 mL per hour. Her sodium was repeated at the midnight, it was checked and it was 110; 3% saline was continued. This morning, sodium is 112. The patient is currently seen in the ICU. She is awake, she is alert. She recognizes me. She is oriented x3. She denies any chest pain. She denies any shortness of breath. She denies any headaches. PAST MEDICAL AND SURGICAL HISTORY: NIDDM, hypertension, cardiac cirrhosis, CAD, PTCA and stents, recurrent GI bleed, history of partial colectomy, recent pneumonia, CHF, chronic hyponatremia, thrombocytopenia. FAMILY HISTORY: Noncontributory. SOCIAL HISTORY: No smoking, no alcohol use, no IV drug abuse. ALLERGIES: SHELLFISH. MEDICATIONS IN THE SKILLED NURSING: Imdur 60, aspirin 81, tramadol, hydralazine 10 mg every 6, MiraLax, multivitamin, Xopenex, iron, insulin, glipizide 10, Lasix 40, amlodipine 10. REVIEW OF SYSTEMS: All systems are reviewed, pertinent positives as mentioned in history of presenting illness, rest unremarkable. PHYSICAL EXAMINATION: GENERAL: Elderly lady, lying in bed in the ICU. Currently in no distress. VITAL SIGNS: Blood pressure 118/60, heart rate 98, respiratory rate 16, temperature 98. HEENT: Normocephalic, atraumatic, positive pallor. NECK: Supple, no JVD. LUNGS: Bilateral equal entry, bilaterally equal expansion, no rales appreciated anteriorly. CARDIAC: S1 and S2, regular rate and rhythm, no murmur, no rub. ABDOMEN: Soft, nondistended, nontender, bowel sounds present. EXTREMITIES: No lower extremity edema. INTAKE AND OUTPUT: 750/700. CURRENT MEDICATIONS: Aspirin, insulin, 3% saline at 20 mL per hour, Imdur, Protonix, Tylenol, Flagyl which has been discontinued, Rocephin 1 g given yesterday. The patient was on half-normal saline which was discontinued last night. ASSESSMENT: 1. Acute severe symptomatic hyponatremia, suspect depletional hyponatremia. 2. Hypotension. 3. Tachycardia. 4. Leukocytosis. 5. History of recurrent gastrointestinal bleed, arteriovenous malformation, partial colectomy. 6. Coronary artery disease, percutaneous transluminal coronary angioplasty and stent, congestive heart failure. 7. Non-insulin dependent diabetes mellitus. 8. Chronic kidney disease stage III. 9. Chronic hyponatremia. 10. Thrombocytopenia. PLAN: 1. This patient appears to be prerenal/dehydrated, will start her on normal saline at 60 mL per hour. 2. Repeat sodium at 3:15 in the afternoon is 119, so therefore I will discontinue 3% saline. 3. Caution not to over-hydrate 4. Monitor closely in the ICU. 5. Monitor fingersticks and maintain euglycemia. 6. Continue antianginal therapy. 7. Continue empiric antibiotics ? 8. Case discussed with ICU team at length. 9. Case discussed with the patient at bedside at length. More than 35 minutes was in the care of this critically ill patient. Frieda Rodriguez MD
[2018-01-05 06:31] LABS: BASO # 0.03 K/mm3 (0.0-2.0); BASO % 0.3 % (0.0-3.0); EOS # 0.2 (0.0-0.7); EOS % 1.3 % (1.5-5.0); GRAN # 7.33 (1.4-6.5); GRAN % 63.5 % (50.0-68.0); HEMOGLOBIN 12.3 g/dL (12.0-16.0); LYMPH # 2.4 (1.2-3.4); LYMPH % 20.4 % (22.0-35.0); MEAN CELL VOLUME 87.6 fl (80.0-105.0); MEAN CORPUSCULAR HEMOGLOBIN 31.7 pg (25.0-35.0); MEAN CORPUSCULAR HGB CONC 36.2 g/dl (31.0-37.0); MONO # 1.7 (0.1-0.6); MONO % 14.5 % (1.0-6.0); RBC 3.88 10^6/uL (3.5-6.1); RED CELL DISTRIBUTION WIDTH 14.4 % (11.5-14.5); WHITE BLOOD COUNT 11.6 10^3/ul (4.5-11.0)
[2018-01-05 06:37] LABS: ALB/GLOB RATIO 1.2 (1.1-1.8); ALBUMIN 3.1 g/dL (3.0-4.8); CALCIUM 8.5 mg/dL (8.4-10.5)
[2018-01-05] MEDS: Insulin Lispro (humaLOG) MEDIUM Coverage SC SCH ×4 (08:56→22:00)
[2018-01-05] MEDS: Pantoprazole 40 mg EC Tab PO SCH (08:57)
[2018-01-05] MEDS: Sodium Chloride 0.9% 1,000 ML IV SCH (08:58)
--- NOTE | 2018-01-05 10:33 | CP.CCUPN ---
<Yuri Burrell Edwin - Last Filed: 01/05/18 10:16> CCU Subjective - Physician Review Events Since Last Encounter (Free Text): 01/05/18 10:17 Patient seen and examined at bedside. No acute overnight events. Patient is still not oriented to time, but this seems to be her baseline. Patient denies any acute complaints, states that her abdominal pain and n/v is resolved. Denies chest pain, shortness of breath. CCU Objective - Vital Signs / Intake & Output Vital Signs (Last 4 hours): Vital Signs Pulse Resp BP 01/05/18 07:32 89 15 01/05/18 07:31 87 20 01/05/18 07:30 86 14 01/05/18 07:29 91 H 17 01/05/18 07:28 92 H 57 H 01/05/18 07:27 87 15 01/05/18 07:26 89 18 01/05/18 07:25 87 17 01/05/18 07:24 86 18 01/05/18 07:23 85 16 01/05/18 07:22 85 18 01/05/18 07:21 85 15 01/05/18 07:20 86 01/05/18 07:19 87 15 01/05/18 07:18 86 16 01/05/18 07:17 87 21 01/05/18 07:16 88 17 01/05/18 07:15 88 19 01/05/18 07:14 86 12 01/05/18 07:13 88 17 01/05/18 07:12 90 15 01/05/18 07:11 93 H 01/05/18 07:10 93 H 22 01/05/18 07:09 88 13 01/05/18 07:08 89 12 01/05/18 07:07 91 H 95 H 01/05/18 07:06 81 19 01/05/18 07:05 84 27 H 01/05/18 07:04 87 22 01/05/18 07:03 87 13 01/05/18 07:02 87 15 01/05/18 07:01 88 19 01/05/18 07:00 119/58 L 01/05/18 06:59 91 H 18 01/05/18 06:58 91 H 43 H 01/05/18 06:57 89 22 01/05/18 06:56 91 H 20 08/04/18 06:55 88 15 01/05/18 06:54 89 17 01/05/18 06:53 89 15 01/05/18 06:52 90 15 01/05/18 06:51 86 15 01/05/18 06:50 92 H 17 01/05/18 06:49 90 17 01/05/18 06:48 93 H 17 01/05/18 06:47 89 16 01/05/18 06:46 91 H 13 01/05/18 06:45 88 15 01/05/18 06:44 90 14 01/05/18 06:43 87 18 01/05/18 06:42 87 13 01/05/18 06:41 89 21 01/05/18 06:40 87 16 01/05/18 06:39 87 20 01/05/18 06:38 88 14 Intake and Output (Last 8hrs): Intake & Output 01/04/18 01/05/18 01/05/18 22:59 06:59 14:59 Intake Total 1550 650 Output Total 600 700 Balance 950 -50 Weight 47.174 kg Intake: IV 900 500 Right Antecubital 900 500 Oral 650 150 Output: Urine 600 700 Urethral (Amaral) 600 700 Other: # Bowel Movements 0 0 - Physical Exam Head: Positive for: Atraumatic Pupils: Positive for: PERRL Mouth: Positive for: Dry Pharnyx: Negative for: ERYTHEMA Neck: Positive for: Normal Range of Motion. Negative for: Meningeal Signs Respiratory/Chest: Positive for: Clear to Auscultation. Negative for: Wheezes Cardiovascular: Positive for: Regular Rate and Rhythm, Murmurs Abdomen: Positive for: Tenderness. Negative for: Distention, Peritoneal Signs, Rebound, Guarding Rectal: Negative for: Gross Blood Back: Negative for: CVA Tenderness Upper Extremity: Negative for: Cyanosis Lower Extremity: Negative for: Edema Neurological: Positive for: Other (has delayed responses but answers questions appropriately.) Skin: Positive for: Warm Psychiatric: Positive for: Alert. Negative for: Normal Concentration - Medications Active Medications: Active Medications Generic Name Dose Route Start Last Admin Trade Name Freq PRN Reason Stop Dose Admin Acetaminophen 650 mg 01/03/18 19:40 01/04/18 23:44 Tylenol 325mg Tab PO 650 mg Q6H PRN Administration Pain, Mild (1-3) Aspirin 81 mg 01/04/18 10:00 01/05/18 09:04 Aspirin Chewable PO 81 mg DAILY JAK Administration Sodium Chloride 1,000 mls @ 60 mls/hr 01/04/18 14:30 01/05/18 08:58 Sodium Chloride 0.9% IV 60 mls/hr .[id number] JAK Administration Insulin Human Lispro 0 units 01/03/18 22:00 01/05/18 08:56 Humalog Med SC 3 units ACHS JAK Administration Protocol Isosorbide Mononitrate 60 mg 01/04/18 10:00 01/05/18 09:04 Imdur PO 60 mg DAILY JAK Administration Mupirocin 1 gm 01/05/18 10:00 Bactroban Ointment NS 01/09/18 18:01 BID JAK Pantoprazole Sodium 40 mg 01/05/18 07:30 01/05/18 08:57 Protonix Ec Tab PO 40 mg ACB JAK Administration - Patient Studies Lab Studies: Microbiology Studies 01/03/18 18:45 MRSA Culture (Admit) - Final Naris MRSA DETECTED Lab Studies 01/05/18 01/05/18 01/05/18 Range/Units 06:10 06:10 02:15 WBC 11.6 H (4.5-11.0) 10^3/ul RBC 3.88 (3.5-6.1) 10^6/uL Hgb 12.3 (12.0-16.0) g/dL Hct 34.0 L (36.0-48.0) % MCV 87.6 (80.0-105.0) fl MCH 31.7 (25.0-35.0) pg MCHC 36.2 (31.0-37.0) g/dl RDW 14.4 (11.5-14.5) % Plt Count 162 (120.0-450.0) 10^3/uL MPV 10.0 (7.0-11.0) fl Gran % 63.5 (50.0-68.0) % Lymph % (Auto) 20.4 L (22.0-35.0) % [place] % (Auto) 14.5 H (1.0-6.0) % Eos % (Auto) 1.3 L (1.5-5.0) % Baso % (Auto) 0.3 (0.0-3.0) % Gran # 7.33 H (1.4-6.5) Lymph # (Auto) 2.4 (1.2-3.4) [place] # (Auto) 1.7 H (0.1-0.6) Eos # (Auto) 0.2 (0.0-0.7) Baso # (Auto) 0.03 (0.0-2.0) K/mm3 Sodium 119 L* 117 L* (132-148) mmol/L Potassium 3.7 3.9 (3.6-5.0) mmol/L Chloride 83 L 82 L (98-107) mmol/L Carbon Dioxide 26 27 (21-33) mmol/L Anion Gap 15 13 (10-20) BUN 48 H 49 H (7-21) mg/dL Creatinine 1.9 H 2.1 H (0.7-1.2) mg/dl Est GFR ( Amer) 31 27 Est GFR (Non-Af Amer) 25 22 POC Glucose (mg/dL) (65-110) mg/dL Random Glucose 227 H 265 H (70-110) mg/dL Serum Osmolality (272-300) mosm/kg Calcium 8.5 8.3 L (8.4-10.5) mg/dL Phosphorus 3.0 (2.5-4.5) mg/dL Magnesium 2.0 (1.7-2.2) mg/dL Total Bilirubin 1.4 H (0.2-1.3) mg/dL AST 46 H (14-36) U/L ALT 33 (7-56) U/L Alkaline Phosphatase 103 (38-126) U/L Total Protein 5.8 (5.8-8.3) g/dL Albumin 3.1 (3.0-4.8) g/dL Globulin 2.7 gm/dL Albumin/Globulin Ratio 1.2 (1.1-1.8) 01/04/18 01/04/18 01/04/18 Range/Units 22:42 18:12 16:44 WBC (4.5-11.0) 10^3/ul RBC (3.5-6.1) 10^6/uL Hgb (12.0-16.0) g/dL Hct (36.0-48.0) % MCV (80.0-105.0) fl MCH (25.0-35.0) pg MCHC (31.0-37.0) g/dl RDW (11.5-14.5) % Plt Count (120.0-450.0) 10^3/uL MPV (7.0-11.0) fl Gran % (50.0-68.0) % Lymph % (Auto) (22.0-35.0) % [place] % (Auto) (1.0-6.0) % Eos % (Auto) (1.5-5.0) % Baso % (Auto) (0.0-3.0) % Gran # (1.4-6.5) Lymph # (Auto) (1.2-3.4) [place] # (Auto) (0.1-0.6) Eos # (Auto) (0.0-0.7) Baso # (Auto) (0.0-2.0) K/mm3 Sodium 119 L* 118 L* (132-148) mmol/L Potassium 4.1 4.1 (3.6-5.0) mmol/L Chloride 82 L 81 L (98-107) mmol/L Carbon Dioxide 28 26 (21-33) mmol/L Anion Gap 14 15 (10-20) BUN 52 H 54 H (7-21) mg/dL Creatinine 2.2 H 2.4 H (0.7-1.2) mg/dl Est GFR ( Amer) 26 23 Est GFR (Non-Af Amer) 21 19 POC Glucose (mg/dL) 94 (65-110) mg/dL Random Glucose 194 H 135 H (70-110) mg/dL Serum Osmolality (272-300) mosm/kg Calcium 8.3 L 8.2 L (8.4-10.5) mg/dL Phosphorus (2.5-4.5) mg/dL Magnesium (1.7-2.2) mg/dL Total Bilirubin (0.2-1.3) mg/dL AST (14-36) U/L ALT (7-56) U/L Alkaline Phosphatase (38-126) U/L Total Protein (5.8-8.3) g/dL Albumin (3.0-4.8) g/dL Globulin gm/dL Albumin/Globulin Ratio (1.1-1.8) 01/04/18 01/04/18 01/04/18 Range/Units 15:10 15:10 11:18 WBC (4.5-11.0) 10^3/ul RBC (3.5-6.1) 10^6/uL Hgb (12.0-16.0) g/dL Hct (36.0-48.0) % MCV (80.0-105.0) fl MCH (25.0-35.0) pg MCHC (31.0-37.0) g/dl RDW (11.5-14.5) % Plt Count (120.0-450.0) 10^3/uL MPV (7.0-11.0) fl Gran % (50.0-68.0) % Lymph % (Auto) (22.0-35.0) % [place] % (Auto) (1.0-6.0) % Eos % (Auto) (1.5-5.0) % Baso % (Auto) (0.0-3.0) % Gran # (1.4-6.5) Lymph # (Auto) (1.2-3.4) [place] # (Auto) (0.1-0.6) Eos # (Auto) (0.0-0.7) Baso # (Auto) (0.0-2.0) K/mm3 Sodium 119 L* (132-148) mmol/L Potassium 4.0 (3.6-5.0) mmol/L Chloride 78 L (98-107) mmol/L Carbon Dioxide 28 (21-33) mmol/L Anion Gap 17 (10-20) BUN 55 H (7-21) mg/dL Creatinine 2.5 H (0.7-1.2) mg/dl Est GFR ( Amer) 22 Est GFR (Non-Af Amer) 18 POC Glucose (mg/dL) 306 H (65-110) mg/dL Random Glucose 97 (70-110) mg/dL Serum Osmolality 261 L (272-300) mosm/kg Calcium 8.8 (8.4-10.5) mg/dL Phosphorus (2.5-4.5) mg/dL Magnesium (1.7-2.2) mg/dL Total Bilirubin (0.2-1.3) mg/dL AST (14-36) U/L ALT (7-56) U/L Alkaline Phosphatase (38-126) U/L Total Protein (5.8-8.3) g/dL Albumin (3.0-4.8) g/dL Globulin gm/dL Albumin/Globulin Ratio (1.1-1.8) 01/04/18 Range/Units 10:15 WBC (4.5-11.0) 10^3/ul RBC (3.5-6.1) 10^6/uL Hgb (12.0-16.0) g/dL Hct (36.0-48.0) % MCV (80.0-105.0) fl MCH (25.0-35.0) pg MCHC (31.0-37.0) g/dl RDW (11.5-14.5) % Plt Count (120.0-450.0) 10^3/uL MPV (7.0-11.0) fl Gran % (50.0-68.0) % Lymph % (Auto) (22.0-35.0) % [place] % (Auto) (1.0-6.0) % Eos % (Auto) (1.5-5.0) % Baso % (Auto) (0.0-3.0) % Gran # (1.4-6.5) Lymph # (Auto) (1.2-3.4) [place] # (Auto) (0.1-0.6) Eos # (Auto) (0.0-0.7) Baso # (Auto) (0.0-2.0) K/mm3 Sodium 113 L* (132-148) mmol/L Potassium 4.0 (3.6-5.0) mmol/L Chloride 75 L (98-107) mmol/L Carbon Dioxide 25 (21-33) mmol/L Anion Gap 17 (10-20) BUN 54 H (7-21) mg/dL Creatinine 2.4 H (0.7-1.2) mg/dl Est GFR ( Amer) 23 Est GFR (Non-Af Amer) 19 POC Glucose (mg/dL) (65-110) mg/dL Random Glucose 325 H* D (70-110) mg/dL Serum Osmolality (272-300) mosm/kg Calcium 8.3 L (8.4-10.5) mg/dL Phosphorus (2.5-4.5) mg/dL Magnesium (1.7-2.2) mg/dL Total Bilirubin (0.2-1.3) mg/dL AST (14-36) U/L ALT (7-56) U/L Alkaline Phosphatase (38-126) U/L Total Protein (5.8-8.3) g/dL Albumin (3.0-4.8) g/dL Globulin gm/dL Albumin/Globulin Ratio (1.1-1.8) Laboratory Results - last 24 hr 01/04/18 01/04/18 01/04/18 10:15 11:18 15:10 WBC RBC Hgb Hct MCV MCH MCHC RDW Plt Count MPV Gran % Lymph % (Auto) [place] % (Auto) Eos % (Auto) Baso % (Auto) Gran # Lymph # (Auto) [place] # (Auto) Eos # (Auto) Baso # (Auto) Sodium 113 L* 119 L* Potassium 4.0 4.0 Chloride 75 L 78 L Carbon Dioxide 25 28 Anion Gap 17 17 BUN 54 H 55 H Creatinine 2.4 H 2.5 H Est GFR ( Amer) 23 22 Est GFR (Non-Af Amer) 19 18 POC Glucose (mg/dL) 306 H Random Glucose 325 H* D 97 Serum Osmolality Calcium 8.3 L 8.8 Phosphorus Magnesium Total Bilirubin AST ALT Alkaline Phosphatase Total Protein Albumin Globulin Albumin/Globulin Ratio 01/04/18 01/04/18 01/04/18 15:10 16:44 18:12 WBC RBC Hgb Hct MCV MCH MCHC RDW Plt Count MPV Gran % Lymph % (Auto) [place] % (Auto) Eos % (Auto) Baso % (Auto) Gran # Lymph # (Auto) [place] # (Auto) Eos # (Auto) Baso # (Auto) Sodium 118 L* Potassium 4.1 Chloride 81 L Carbon Dioxide 26 Anion Gap 15 BUN 54 H Creatinine 2.4 H Est GFR ( Amer) 23 Est GFR (Non-Af Amer) 19 POC Glucose (mg/dL) 94 Random Glucose 135 H Serum Osmolality 261 L Calcium 8.2 L Phosphorus Magnesium Total Bilirubin AST ALT Alkaline Phosphatase Total Protein Albumin Globulin Albumin/Globulin Ratio 01/04/18 01/05/18 01/05/18 22:42 02:15 06:10 WBC 11.6 H RBC 3.88 Hgb 12.3 Hct 34.0 L MCV 87.6 MCH 31.7 MCHC 36.2 RDW 14.4 Plt Count 162 MPV 10.0 Gran % 63.5 Lymph % (Auto) 20.4 L [place] % (Auto) 14.5 H Eos % (Auto) 1.3 L Baso % (Auto) 0.3 Gran # 7.33 H Lymph # (Auto) 2.4 [place] # (Auto) 1.7 H Eos # (Auto) 0.2 Baso # (Auto) 0.03 Sodium 119 L* 117 L* Potassium 4.1 3.9 Chloride 82 L 82 L Carbon Dioxide 28 27 Anion Gap 14 13 BUN 52 H 49 H Creatinine 2.2 H 2.1 H Est GFR ( Amer) 26 27 Est GFR (Non-Af Amer) 21 22 POC Glucose (mg/dL) Random Glucose 194 H 265 H Serum Osmolality Calcium 8.3 L 8.3 L Phosphorus Magnesium Total Bilirubin AST ALT Alkaline Phosphatase Total Protein Albumin Globulin Albumin/Globulin Ratio 01/05/18 06:10 WBC RBC Hgb Hct MCV MCH MCHC RDW Plt Count MPV Gran % Lymph % (Auto) [place] % (Auto) Eos % (Auto) Baso % (Auto) Gran # Lymph # (Auto) [place] # (Auto) Eos # (Auto) Baso # (Auto) Sodium 119 L* Potassium 3.7 Chloride 83 L Carbon Dioxide 26 Anion Gap 15 BUN 48 H Creatinine 1.9 H Est GFR ( Amer) 31 Est GFR (Non-Af Amer) 25 POC Glucose (mg/dL) Random Glucose 227 H Serum Osmolality Calcium 8.5 Phosphorus 3.0 Magnesium 2.0 Total Bilirubin 1.4 H AST 46 H ALT 33 Alkaline Phosphatase 103 Total Protein 5.8 Albumin 3.1 Globulin 2.7 Albumin/Globulin Ratio 1.2 Fingerstick Blood Sugar Results: 195 Critical Care Progress Note - Nutrition Nutrition: Nutrition Category Date Time Status Heart Healthy Diet [DIET] Diets 01/03/18 Breakfast Active Assessment/Plan - Assessment and Plan (Free Text) Assessment: 82 year old female with pertinent medical history of CKD and hyponatremia under ICU management for treatment of hyponatremia, likely 2/2 poor po intake. Acute on chronic kidney failure - improving Acute Hyperbilirubinemia - improving Acute Leukocytosis, likely reactive - improving Hx Altered Mental Status - at baseline Hx CHF Hx CAD s/p stents Hx GI AVM with bleed Hx COPD Hx HTN Hx DM Hyponatremia likely 2/2 poor po intake vs component of SIADH; Urine and Serum Osm's are low, but Urine sodium was not ordered per Nephro. Patient no longer on hypertonic saline, correction of hyponatremia has not been > 6-8 over 24 hours; is 119 today. Cr is improving, indicating resolving NADIYA/CKD. Leukocytosis improving as well, was likely 2/2 reaction to nausea and vomiting. Patient cultures and procal negative at this time, infection unlikely etiology for hyponatremia. Plan Neurology: - Maintain normothermia Lungs: - Maintain SaO2>90 Cardio: - Continue home Imdur - Continue home ASA - Maintain MAP>65 : - Continue with normal saline @ 60 mls/hr - avoid fluid overload in patient with history of respiratory compromise 2/2 fluid overload - Maintain euvolemia, avoid hypochloremia - Nephrology consulted: Dr. Rodriguez GI: - Continue with GI PPX of protonix Heme: - Continue ASA 81 - Continue SCD prophylaxis, avoid anticoagulants 2/2 hx of GIB ID: - Continue Mupirocin Endo: - Continue with Medium RISS - Maintain euglycemia Dispo: At this time, patient is stable for transfer to Med/Surg given improved sodium of 119 <Antony Colbert - Last Filed: 01/05/18 11:58> CCU Objective - Vital Signs / Intake & Output Vital Signs (Last 4 hours): Vital Signs Pulse Resp BP Pulse Ox 01/05/18 10:20 84 16 96 01/05/18 10:10 85 13 96 01/05/18 10:00 93 H 20 86 L 01/05/18 09:50 88 16 96 01/05/18 09:40 84 15 98 01/05/18 09:30 86 14 100 01/05/18 09:20 86 15 100 01/05/18 09:10 90 17 78 L 01/05/18 09:00 83 25 H 143/62 100 01/05/18 08:50 89 24 100 01/05/18 08:40 91 H 15 100 01/05/18 08:30 94 H 16 100 01/05/18 08:26 94 H 14 01/05/18 08:25 96 H 17 01/05/18 08:24 94 H 01/05/18 08:23 94 H 22 01/05/18 08:22 96 H 15 01/05/18 08:21 97 H 17 01/05/18 08:20 91 H 38 H 01/05/18 08:19 94 H 14 01/05/18 08:18 92 H 42 H 01/05/18 08:17 97 H 17 01/05/18 08:16 93 H 20 01/05/18 08:15 95 H 01/05/18 08:14 92 H 23 01/05/18 08:13 95 H 20 01/05/18 08:12 90 31 H 01/05/18 08:11 95 H 23 01/05/18 08:10 90 61 H 01/05/18 08:09 88 12 01/05/18 08:08 88 16 01/05/18 08:07 90 25 H 01/05/18 08:06 89 31 H 01/05/18 08:05 91 H 01/05/18 08:04 90 39 H 01/05/18 08:03 87 18 01/05/18 08:02 87 13 01/05/18 08:01 87 16 01/05/18 08:00 141/65 01/05/18 07:59 86 18 01/05/18 07:58 87 14 01/05/18 07:57 88 21 01/05/18 07:56 86 16 Intake and Output (Last 8hrs): Intake & Output 01/04/18 01/05/18 01/05/18 22:59 06:59 14:59 Intake Total 1550 650 Output Total 600 700 Balance 950 -50 Weight 104 lb Intake: IV 900 500 Right Antecubital 900 500 Oral 650 150 Output: Urine 600 700 Urethral (Amaral) 600 700 Other: # Bowel Movements 0 0 - Medications Active Medications: Active Medications Generic Name Dose Route Start Last Admin Trade Name Freq PRN Reason Stop Dose Admin Acetaminophen 650 mg 01/03/18 19:40 01/04/18 23:44 Tylenol 325mg Tab PO 650 mg Q6H PRN Administration Pain, Mild (1-3) Aspirin 81 mg 01/04/18 10:00 01/05/18 09:04 Aspirin Chewable PO 81 mg DAILY JAK Administration Sodium Chloride 1,000 mls @ 60 mls/hr 01/04/18 14:30 01/05/18 08:58 Sodium Chloride 0.9% IV 60 mls/hr .[id number] JAK Administration Insulin Human Lispro 0 units 01/03/18 22:00 01/05/18 08:56 Humalog Med SC 3 units ACHS JAK Administration Protocol Isosorbide Mononitrate 60 mg 01/04/18 10:00 01/05/18 09:04 Imdur PO 60 mg DAILY JAK Administration Mupirocin 1 gm 01/05/18 10:00 Bactroban Ointment NS 01/09/18 18:01 BID JAK Pantoprazole Sodium 40 mg 01/05/18 07:30 01/05/18 08:57 Protonix Ec Tab PO 40 mg ACB JAK Administration - Patient Studies Lab Studies: Microbiology Studies 01/03/18 17:10 Urine Culture - Preliminary Urine Gram Pos Cocci In Chains 01/03/18 18:45 MRSA Culture (Admit) - Final Naris MRSA DETECTED Lab Studies 01/05/18 01/05/18 01/05/18 Range/Units 11:50 10:00 07:57 WBC (4.5-11.0) 10^3/ul RBC (3.5-6.1) 10^6/uL Hgb (12.0-16.0) g/dL Hct (36.0-48.0) % MCV (80.0-105.0) fl MCH (25.0-35.0) pg MCHC (31.0-37.0) g/dl RDW (11.5-14.5) % Plt Count (120.0-450.0) 10^3/uL MPV (7.0-11.0) fl Gran % (50.0-68.0) % Lymph % (Auto) (22.0-35.0) % [place] % (Auto) (1.0-6.0) % Eos % (Auto) (1.5-5.0) % Baso % (Auto) (0.0-3.0) % Gran # (1.4-6.5) Lymph # (Auto) (1.2-3.4) [place] # (Auto) (0.1-0.6) Eos # (Auto) (0.0-0.7) Baso # (Auto) (0.0-2.0) K/mm3 Sodium 118 L* (132-148) mmol/L Potassium 3.8 (3.6-5.0) mmol/L Chloride 82 L (98-107) mmol/L Carbon Dioxide 26 (21-33) mmol/L Anion Gap 13 (10-20) BUN 44 H (7-21) mg/dL Creatinine 1.9 H (0.7-1.2) mg/dl Est GFR ( Amer) 31 Est GFR (Non-Af Amer) 25 POC Glucose (mg/dL) 323 H 231 H (65-110) mg/dL Random Glucose 346 H* D (70-110) mg/dL Serum Osmolality (272-300) mosm/kg Calcium 8.6 (8.4-10.5) mg/dL Phosphorus (2.5-4.5) mg/dL Magnesium (1.7-2.2) mg/dL Total Bilirubin (0.2-1.3) mg/dL AST (14-36) U/L ALT (7-56) U/L Alkaline Phosphatase (38-126) U/L Total Protein (5.8-8.3) g/dL Albumin (3.0-4.8) g/dL Globulin gm/dL Albumin/Globulin Ratio (1.1-1.8) 01/05/18 01/05/18 01/05/18 Range/Units 06:10 06:10 02:15 WBC 11.6 H (4.5-11.0) 10^3/ul RBC 3.88 (3.5-6.1) 10^6/uL Hgb 12.3 (12.0-16.0) g/dL Hct 34.0 L (36.0-48.0) % MCV 87.6 (80.0-105.0) fl MCH 31.7 (25.0-35.0) pg MCHC 36.2 (31.0-37.0) g/dl RDW 14.4 (11.5-14.5) % Plt Count 162 (120.0-450.0) 10^3/uL MPV 10.0 (7.0-11.0) fl Gran % 63.5 (50.0-68.0) % Lymph % (Auto) 20.4 L (22.0-35.0) % [place] % (Auto) 14.5 H (1.0-6.0) % Eos % (Auto) 1.3 L (1.5-5.0) % Baso % (Auto) 0.3 (0.0-3.0) % Gran # 7.33 H (1.4-6.5) Lymph # (Auto) 2.4 (1.2-3.4) [place] # (Auto) 1.7 H (0.1-0.6) Eos # (Auto) 0.2 (0.0-0.7) Baso # (Auto) 0.03 (0.0-2.0) K/mm3 Sodium 119 L* 117 L* (132-148) mmol/L Potassium 3.7 3.9 (3.6-5.0) mmol/L Chloride 83 L 82 L (98-107) mmol/L Carbon Dioxide 26 27 (21-33) mmol/L Anion Gap 15 13 (10-20) BUN 48 H 49 H (7-21) mg/dL Creatinine 1.9 H 2.1 H (0.7-1.2) mg/dl Est GFR ( Amer) 31 27 Est GFR (Non-Af Amer) 25 22 POC Glucose (mg/dL) (65-110) mg/dL Random Glucose 227 H 265 H (70-110) mg/dL Serum Osmolality (272-300) mosm/kg Calcium 8.5 8.3 L (8.4-10.5) mg/dL Phosphorus 3.0 (2.5-4.5) mg/dL Magnesium 2.0 (1.7-2.2) mg/dL Total Bilirubin 1.4 H (0.2-1.3) mg/dL AST 46 H (14-36) U/L ALT 33 (7-56) U/L Alkaline Phosphatase 103 (38-126) U/L Total Protein 5.8 (5.8-8.3) g/dL Albumin 3.1 (3.0-4.8) g/dL Globulin 2.7 gm/dL Albumin/Globulin Ratio 1.2 (1.1-1.8) 01/04/18 01/04/18 01/04/18 Range/Units 22:42 21:32 18:12 WBC (4.5-11.0) 10^3/ul RBC (3.5-6.1) 10^6/uL Hgb (12.0-16.0) g/dL Hct (36.0-48.0) % MCV (80.0-105.0) fl MCH (25.0-35.0) pg MCHC (31.0-37.0) g/dl RDW (11.5-14.5) % Plt Count (120.0-450.0) 10^3/uL MPV (7.0-11.0) fl Gran % (50.0-68.0) % Lymph % (Auto) (22.0-35.0) % [place] % (Auto) (1.0-6.0) % Eos % (Auto) (1.5-5.0) % Baso % (Auto) (0.0-3.0) % Gran # (1.4-6.5) Lymph # (Auto) (1.2-3.4) [place] # (Auto) (0.1-0.6) Eos # (Auto) (0.0-0.7) Baso # (Auto) (0.0-2.0) K/mm3 Sodium 119 L* 118 L* (132-148) mmol/L Potassium 4.1 4.1 (3.6-5.0) mmol/L Chloride 82 L 81 L (98-107) mmol/L Carbon Dioxide 28 26 (21-33) mmol/L Anion Gap 14 15 (10-20) BUN 52 H 54 H (7-21) mg/dL Creatinine 2.2 H 2.4 H (0.7-1.2) mg/dl Est GFR ( Amer) 26 23 Est GFR (Non-Af Amer) 21 19 POC Glucose (mg/dL) 195 H (65-110) mg/dL Random Glucose 194 H 135 H (70-110) mg/dL Serum Osmolality (272-300) mosm/kg Calcium 8.3 L 8.2 L (8.4-10.5) mg/dL Phosphorus (2.5-4.5) mg/dL Magnesium (1.7-2.2) mg/dL Total Bilirubin (0.2-1.3) mg/dL AST (14-36) U/L ALT (7-56) U/L Alkaline Phosphatase (38-126) U/L Total Protein (5.8-8.3) g/dL Albumin (3.0-4.8) g/dL Globulin gm/dL Albumin/Globulin Ratio (1.1-1.8) 01/04/18 01/04/18 01/04/18 Range/Units 16:44 15:10 15:10 WBC (4.5-11.0) 10^3/ul RBC (3.5-6.1) 10^6/uL Hgb (12.0-16.0) g/dL Hct (36.0-48.0) % MCV (80.0-105.0) fl MCH (25.0-35.0) pg MCHC (31.0-37.0) g/dl RDW (11.5-14.5) % Plt Count (120.0-450.0) 10^3/uL MPV (7.0-11.0) fl Gran % (50.0-68.0) % Lymph % (Auto) (22.0-35.0) % [place] % (Auto) (1.0-6.0) % Eos % (Auto) (1.5-5.0) % Baso % (Auto) (0.0-3.0) % Gran # (1.4-6.5) Lymph # (Auto) (1.2-3.4) [place] # (Auto) (0.1-0.6) Eos # (Auto) (0.0-0.7) Baso # (Auto) (0.0-2.0) K/mm3 Sodium 119 L* (132-148) mmol/L Potassium 4.0 (3.6-5.0) mmol/L Chloride 78 L (98-107) mmol/L Carbon Dioxide 28 (21-33) mmol/L Anion Gap 17 (10-20) BUN 55 H (7-21) mg/dL Creatinine 2.5 H (0.7-1.2) mg/dl Est GFR ( Amer) 22 Est GFR (Non-Af Amer) 18 POC Glucose (mg/dL) 94 (65-110) mg/dL Random Glucose 97 (70-110) mg/dL Serum Osmolality 261 L (272-300) mosm/kg Calcium 8.8 (8.4-10.5) mg/dL Phosphorus (2.5-4.5) mg/dL Magnesium (1.7-2.2) mg/dL Total Bilirubin (0.2-1.3) mg/dL AST (14-36) U/L ALT (7-56) U/L Alkaline Phosphatase (38-126) U/L Total Protein (5.8-8.3) g/dL Albumin (3.0-4.8) g/dL Globulin gm/dL Albumin/Globulin Ratio (1.1-1.8) 01/04/18 Range/Units 11:18 WBC (4.5-11.0) 10^3/ul RBC (3.5-6.1) 10^6/uL Hgb (12.0-16.0) g/dL Hct (36.0-48.0) % MCV (80.0-105.0) fl MCH (25.0-35.0) pg MCHC (31.0-37.0) g/dl RDW (11.5-14.5) % Plt Count (120.0-450.0) 10^3/uL MPV (7.0-11.0) fl Gran % (50.0-68.0) % Lymph % (Auto) (22.0-35.0) % [place] % (Auto) (1.0-6.0) % Eos % (Auto) (1.5-5.0) % Baso % (Auto) (0.0-3.0) % Gran # (1.4-6.5) Lymph # (Auto) (1.2-3.4) [place] # (Auto) (0.1-0.6) Eos # (Auto) (0.0-0.7) Baso # (Auto) (0.0-2.0) K/mm3 Sodium (132-148) mmol/L Potassium (3.6-5.0) mmol/L Chloride (98-107) mmol/L Carbon Dioxide (21-33) mmol/L Anion Gap (10-20) BUN (7-21) mg/dL Creatinine (0.7-1.2) mg/dl Est GFR ( Amer) Est GFR (Non-Af Amer) POC Glucose (mg/dL) 306 H (65-110) mg/dL Random Glucose (70-110) mg/dL Serum Osmolality (272-300) mosm/kg Calcium (8.4-10.5) mg/dL Phosphorus (2.5-4.5) mg/dL Magnesium (1.7-2.2) mg/dL Total Bilirubin (0.2-1.3) mg/dL AST (14-36) U/L ALT (7-56) U/L Alkaline Phosphatase (38-126) U/L Total Protein (5.8-8.3) g/dL Albumin (3.0-4.8) g/dL Globulin gm/dL Albumin/Globulin Ratio (1.1-1.8) Laboratory Results - last 24 hr 01/04/18 01/04/18 01/04/18 11:18 15:10 15:10 WBC RBC Hgb Hct MCV MCH MCHC RDW Plt Count MPV Gran % Lymph % (Auto) [place] % (Auto) Eos % (Auto) Baso % (Auto) Gran # Lymph # (Auto) [place] # (Auto) Eos # (Auto) Baso # (Auto) Sodium 119 L* Potassium 4.0 Chloride 78 L Carbon Dioxide 28 Anion Gap 17 BUN 55 H Creatinine 2.5 H Est GFR ( Amer) 22 Est GFR (Non-Af Amer) 18 POC Glucose (mg/dL) 306 H Random Glucose 97 Serum Osmolality 261 L Calcium 8.8 Phosphorus Magnesium Total Bilirubin AST ALT Alkaline Phosphatase Total Protein Albumin Globulin Albumin/Globulin Ratio 01/04/18 01/04/18 01/04/18 16:44 18:12 21:32 WBC RBC Hgb Hct MCV MCH MCHC RDW Plt Count MPV Gran % Lymph % (Auto) [place] % (Auto) Eos % (Auto) Baso % (Auto) Gran # Lymph # (Auto) [place] # (Auto) Eos # (Auto) Baso # (Auto) Sodium 118 L* Potassium 4.1 Chloride 81 L Carbon Dioxide 26 Anion Gap 15 BUN 54 H Creatinine 2.4 H Est GFR ( Amer) 23 Est GFR (Non-Af Amer) 19 POC Glucose (mg/dL) 94 195 H Random Glucose 135 H Serum Osmolality Calcium 8.2 L Phosphorus Magnesium Total Bilirubin AST ALT Alkaline Phosphatase Total Protein Albumin Globulin Albumin/Globulin Ratio 01/04/18 01/05/18 01/05/18 22:42 02:15 06:10 WBC 11.6 H RBC 3.88 Hgb 12.3 Hct 34.0 L MCV 87.6 MCH 31.7 MCHC 36.2 RDW 14.4 Plt Count 162 MPV 10.0 Gran % 63.5 Lymph % (Auto) 20.4 L [place] % (Auto) 14.5 H Eos % (Auto) 1.3 L Baso % (Auto) 0.3 Gran # 7.33 H Lymph # (Auto) 2.4 [place] # (Auto) 1.7 H Eos # (Auto) 0.2 Baso # (Auto) 0.03 Sodium 119 L* 117 L* Potassium 4.1 3.9 Chloride 82 L 82 L Carbon Dioxide 28 27 Anion Gap 14 13 BUN 52 H 49 H Creatinine 2.2 H 2.1 H Est GFR ( Amer) 26 27 Est GFR (Non-Af Amer) 21 22 POC Glucose (mg/dL) Random Glucose 194 H 265 H Serum Osmolality Calcium 8.3 L 8.3 L Phosphorus Magnesium Total Bilirubin AST ALT Alkaline Phosphatase Total Protein Albumin Globulin Albumin/Globulin Ratio 01/05/18 01/05/18 01/05/18 06:10 07:57 10:00 WBC RBC Hgb Hct MCV MCH MCHC RDW Plt Count MPV Gran % Lymph % (Auto) [place] % (Auto) Eos % (Auto) Baso % (Auto) Gran # Lymph # (Auto) [place] # (Auto) Eos # (Auto) Baso # (Auto) Sodium 119 L* 118 L* Potassium 3.7 3.8 Chloride 83 L 82 L Carbon Dioxide 26 26 Anion Gap 15 13 BUN 48 H 44 H Creatinine 1.9 H 1.9 H Est GFR ( Amer) 31 31 Est GFR (Non-Af Amer) 25 25 POC Glucose (mg/dL) 231 H Random Glucose 227 H 346 H* D Serum Osmolality Calcium 8.5 8.6 Phosphorus 3.0 Magnesium 2.0 Total Bilirubin 1.4 H AST 46 H ALT 33 Alkaline Phosphatase 103 Total Protein 5.8 Albumin 3.1 Globulin 2.7 Albumin/Globulin Ratio 1.2 01/05/18 11:50 WBC RBC Hgb Hct MCV MCH MCHC RDW Plt Count MPV Gran % Lymph % (Auto) [place] % (Auto) Eos % (Auto) Baso % (Auto) Gran # Lymph # (Auto) [place] # (Auto) Eos # (Auto) Baso # (Auto) Sodium Potassium Chloride Carbon Dioxide Anion Gap BUN Creatinine Est GFR ( Amer) Est GFR (Non-Af Amer) POC Glucose (mg/dL) 323 H Random Glucose Serum Osmolality Calcium Phosphorus Magnesium Total Bilirubin AST ALT Alkaline Phosphatase Total Protein Albumin Globulin Albumin/Globulin Ratio Critical Care Progress Note - Nutrition Nutrition: Nutrition Category Date Time Status Heart Healthy Diet [DIET] Diets 01/03/18 Breakfast Active Assessment/Plan - Assessment and Plan (Free Text) Assessment: Patient seen and examined on rounds with resident, agree with note with following additions/exceptions: Patient is 82yo female with PMhx of CKD, admitted to MICU for severe hyponatremia, with complaints of fatigue and weakness which has since resolved. Labs, imaging, chart reviewed. Pt currently afebrile, BP stable, comfortable in NAD on room air, doing well, NO major complaints Na improving 119 currently, on NS 60cc/hr Cr improving Hyponatremia CKD Recommend: - supp o2 as needed - NO ID issues, cultures negative, afebrile - BP control - Imdur, ASA - Cont with NS 60cc/hr - monitor BMP q12hr - FS control - GI ppx - DVT ppx, SCDs - Transfer to med surg DNR/DNI
[2018-01-05 10:38] LABS: CALCIUM 8.6 mg/dL (8.4-10.5)
[2018-01-05] MEDS: Mupirocin 2% Ointment 15 GM TUBE NS SCH ×2 (11:53→17:12)
[2018-01-05] MEDS: Tolvaptan 15 MG TAB PO SCH (13:31)
[2018-01-05 14:17] LABS: CALCIUM 8.7 mg/dL (8.4-10.5)
--- NOTE | 2018-01-05 17:43 | PN ---
Copied To: Ga Braden MD Attending MD: Ga Braden MD DATE: 01/05/2018 SUBJECTIVE: The patient is currently seen lying comfortable in bed in CCU, bed 1. She has been downgraded to Med-Surg. She continues to have significant hyponatremia. She did receive 3% saline. Her sodium did come up from 108 to 118. Of note, the patient had responded reasonably well in the past to tolvaptan. 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 MEDICATIONS: Medication list reviewed. The patient is currently on aspirin, mupirocin, sliding scale insulin, Imdur, Protonix, normal saline 60 mL an hour, and Tylenol. OBJECTIVE: INTAKE/OUTPUT: Intake 2200, output 1300. VITAL SIGNS: Blood pressure is 143/62, pulse of 84, temperature 98, respiratory rate is 16. HEENT: Show her to be normocephalic and atraumatic. Conjunctivae are pink. Sclerae nonicteric. NECK: Supple. No neck vein distention. CHEST: Clear to auscultation and percussion with no rales, rhonchi, or wheezing. CARDIOVASCULAR: Shows a normal S1, S2. AI/MR/TR. No S3, no S4, no rub. ABDOMEN: Soft. Bowel sounds normal. No rebound, guarding, or masses. EXTREMITIES: Show no cyanosis, clubbing, or edema. LABORATORY DATA AND IMAGING: Abdomen and pelvic CT scan done on 01/03, shows gallstones with no evidence for acute cholecystitis. Kidneys are unremarkable. Liver is read as unremarkable. Labs: CBC; white blood cell count down to 11.6. Hemoglobin stable at 12.3, platelet count is 162,000. Coags showed PT of 13.4 with an INR of 1.17. PTT is 29.4. Chemistries show a sodium which is 118. Chloride is 82. CO2 is 26. BUN is improved, it is down from 55 to 44, her baseline BUN is in the 50s. Creatinine is down from 2.2 to 1.9, baseline creatinine is 1.6. Her glucose level as of now is 346. Her corrected sodium is 122. Serum osmolality was low at 261. Urine osmolality was not inappropriately low at 294. Urine sodium was 43. The patient had been using Lasix in the outpatient setting prior to that determination. Uric acid level was 12.1 which is against the diagnosis of SIADH. Microbiology: Urine's are positive for Gram-positive cocci in chains. ASSESSMENT: 1. Chronic hyponatremia with a severe hypernatremia on present admission with sodium levels down to 108. The patient had received 3% saline. Corrected sodium is up to 122. I will give the patient a total of three doses of tolvaptan to help bring her sodium level up. This is not appeared to be syndrome of inappropriate antidiuretic hormone as her uric acid level was elevated. Quite possibly is depletion of hyponatremia, but the urine sodium was mildly elevated, perhaps secondary to taking Lasix prior to the determination. 2. History of chronic kidney disease stage III. This will likely improve with continued hydration and discontinuation of Lasix at this point in time. Her baseline BUN is in the low 20s with a baseline creatinine of 1.6. 3. Past history of gastrointestinal bleed. During a recent hospitalization, the patient received 3 units of packed red blood cells. She is status post partial colectomy for GI bleeding. 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 4. History of kik-ifdfavi-niqwwqvyt diabetes mellitus, currently controlled. 5. History of atherosclerotic heart disease, status post percutaneous transluminal coronary angioplasty and stent with congestive heart failure, history of cardiac cirrhosis. 6. History of recent pneumonia. 7. Past history of thrombocytopenia, present platelet count is normal. PLAN: 1. The patient is awaiting physical transfer out of the CCU. She is downgraded to Med-Surg. 2. We will continue normal saline at 60 mL an hour and I will reintroduce tolvaptan back to the patient, she had responded reasonably well to that in the past. 3. Continue to hold Lasix at present. 4. Continue to monitor labs on a daily basis. 5. Continue to restrict p.o. fluids in light of her hyponatremia. 6. History of hypertension. The patient's blood pressure medication can be restarted as her systolic blood pressures are starting to improve. Ga Braden MD [facility]
--- NOTE | 2018-01-05 21:09 | PN ---
Copied To: Harsh Morataya MD Attending MD: Harsh Morataya MD DATE: 01/05/2018 SUBJECTIVE: The patient is 82 years old, seen and examined, doing well. She states she is sleeping too much, complained of generalized weakness. PHYSICAL EXAMINATION: VITAL SIGNS: She is afebrile, pulse 84, respirations 16, and blood pressure 143/62. LUNGS: Bilateral fair airflow. No rhonchi or crackles. HEART: S1 and S2 audible. ABDOMEN: Soft, nontender. No rebound. No guarding. NEUROLOGIC: She is awake, alert, and oriented. LABORATORY EXAM: WBC is 11.6, hemoglobin 12.3, hematocrit 34, and platelets 162. Chemistry: Sodium 121, potassium 3.7, chloride 86, CO2 of 24. BUN 41, creatinine 1.7. Blood sugar of 194. ASSESSMENT: 1. Symptomatic hyponatremia. 2. Cirrhosis of liver. 3. Cardiac cirrhosis. 4. Insulin-dependent diabetes. 5. Deconditioning and difficulty walking. 6. Chronic renal disease. 7. History of gastrointestinal arteriovenous malformation, status post partial colectomy. PLAN: Currently, the patient is on 60 mL of IV fluid, although her oral intake has improved. She was given dose of Samsca. Monitor her electrolytes in the a.m. The patient is clinically stable, can be transferred to telemetry. Harsh Morataya MD
[2018-01-06] MEDS: Sodium Chloride 0.9% 1,000 ML IV SCH (05:00)
[2018-01-06 06:08] LABS: BASO # 0.04 K/mm3 (0.0-2.0); BASO % 0.4 % (0.0-3.0); EOS # 0.3 (0.0-0.7); EOS % 2.9 % (1.5-5.0); GRAN # 5.99 (1.4-6.5); GRAN % 58.7 % (50.0-68.0); LYMPH # 2.2 (1.2-3.4); LYMPH % 21.9 % (22.0-35.0); MEAN CELL VOLUME 88.5 fl (80.0-105.0); MEAN CORPUSCULAR HEMOGLOBIN 31.3 pg (25.0-35.0); MEAN CORPUSCULAR HGB CONC 35.4 g/dl (31.0-37.0); MEAN PLATELET VOLUME 9.7 fl (7.0-11.0); MONO # 1.7 (0.1-0.6); MONO % 16.1 % (1.0-6.0); RBC 3.83 10^6/uL (3.5-6.1); RED CELL DISTRIBUTION WIDTH 14.3 % (11.5-14.5); WHITE BLOOD COUNT 10.2 10^3/ul (4.5-11.0)
[2018-01-06 06:33] LABS: ALB/GLOB RATIO 1.1 (1.1-1.8); ALBUMIN 2.9 g/dL (3.0-4.8); CALCIUM 8.4 mg/dL (8.4-10.5)
[2018-01-06] MEDS: Insulin Lispro (humaLOG) MEDIUM Coverage SC SCH ×4 (08:04→18:53)
[2018-01-06] MEDS: Pantoprazole 40 mg EC Tab PO SCH (08:11)
[2018-01-06] MEDS: Tolvaptan 15 MG TAB PO SCH (10:20)
[2018-01-06] MEDS: Mupirocin 2% Ointment 15 GM TUBE NS SCH ×2 (10:21→18:54)
--- NOTE | 2018-01-06 20:28 | PN ---
Copied To: Gamal Rosenthal MD Attending MD: Gamal Rosenthal MD DATE: 01/06/2018 SUBJECTIVE: The patient has no complaints of any chest pain. No shortness of breath. No headaches or dizziness. PHYSICAL EXAMINATION: VITAL SIGNS: Temperature is 98, pulse of 82, blood pressure is 169/116, respirations 16. GENERAL: The patient states she feels weak. She was sitting in a chair. She is having her breakfast. HEENT: No oral lesion. Anicteric sclerae. Moist mucosa. NECK: No JVD, adenopathy, or thyromegaly. CARDIOVASCULAR: S1 and S2, regular. No murmurs, rubs, or gallops. LUNGS: Clear to auscultation bilaterally. No wheeze, rales, or rhonchi. ABDOMEN: Bowel sounds are positive, soft, nontender and nondistended. EXTREMITIES: No cyanosis, clubbing, or edema. LABORATORY DATA: White count of 7.2, hemoglobin 12. Creatinine is 1.6. ASSESSMENT: 1. Hyponatremia. 2. Cirrhosis. 3. Diabetes type 2. 4. Gait dysfunction. 5. Chronic kidney disease stage III to IV. PLAN: The patient is currently receiving aspirin. She is going to continue with isosorbide. She is on Protonix daily. The patient is on IV fluid. She is being followed by Dr. Rodriguez from Nephrology for her hyponatremia. She is on a heart-healthy diet. Gamal Rosenthal MD
[2018-01-07 04:51] VITALS: RESP 20
[2018-01-07 07:46] LABS: BASO # 0.05 K/mm3 (0.0-2.0); BASO % 0.4 % (0.0-3.0); EOS # 0.2 (0.0-0.7); EOS % 1.7 % (1.5-5.0); GRAN # 7.7 (1.4-6.5); GRAN % 65.7 % (50.0-68.0); HEMOGLOBIN 12.1 g/dL (12.0-16.0); LYMPH # 2.7 (1.2-3.4); LYMPH % 22.9 % (22.0-35.0); MEAN CELL VOLUME 90.3 fl (80.0-105.0); MEAN CORPUSCULAR HEMOGLOBIN 31.6 pg (25.0-35.0); MONO # 1.1 (0.1-0.6); MONO % 9.3 % (1.0-6.0); RBC 3.83 10^6/uL (3.5-6.1); RED CELL DISTRIBUTION WIDTH 14.5 % (11.5-14.5); WHITE BLOOD COUNT 11.7 10^3/ul (4.5-11.0)
[2018-01-07 08:10] LABS: ALB/GLOB RATIO 1.1 (1.1-1.8); ALBUMIN 2.9 g/dL (3.0-4.8); CALCIUM 8.7 mg/dL (8.4-10.5)
[2018-01-07 09:05] VITALS: BP 140/73; PULSE 82; TEMP 98.1; O2SAT 100
[2018-01-07] MEDS: Insulin Lispro (humaLOG) MEDIUM Coverage SC SCH ×2 (09:08→12:04)
[2018-01-07] MEDS: Sodium Chloride 0.9% 1,000 ML IV SCH (09:09)
[2018-01-07] MEDS: Pantoprazole 40 mg EC Tab PO SCH (09:09)
[2018-01-07] MEDS: Tolvaptan 15 MG TAB PO SCH (10:19)
[2018-01-07] MEDS: Mupirocin 2% Ointment 15 GM TUBE NS SCH (10:19)
[2018-01-07] MEDS ORDERED: Potassium & Sodium Phosphate PO STA (11:51)
--- NOTE | 2018-01-07 16:01 | PN ---
Copied To: Frieda Rodriguez MD Attending MD: Frieda Rodriguez MD DATE: 01/07/2018 SUBJECTIVE: The patient is seen lying in bed. She is awake. She is alert. She is comfortable. She reports that she is not nauseous. She is eating okay. She denies any diarrhea. She denies any shortness of breath. PHYSICAL EXAMINATION GENERAL: Elderly lady lying in bed. VITAL SIGNS: Blood pressure 140/73, heart rate 82, respiratory rate 20, temperature 98.1. HEENT: Normocephalic, atraumatic, positive pallor. NECK: Supple, no JVD. LUNGS: Bilateral equal air entry, bilateral equal expansion. CARDIAC: S1 and S2. Regular rate and rhythm. Positive murmur. No rub. ABDOMEN: Soft, nondistended, nontender, bowel sounds present. EXTREMITIES: No lower extremity edema. INTAKE AND OUTPUT: 2180/1600. LABORATORY DATA: WBC 11.7, hemoglobin 12, hematocrit 34.6, platelets 137. Sodium 130, potassium 3.9, chloride 96, CO2 of 26, BUN 34, creatinine 1.4, glucose 200, calcium 8.7, phosphorus 2.4, magnesium 1.9, albumin 2.9. CURRENT MEDICATIONS: Aspirin, Bactroban, insulin, Imdur, Protonix, Samsca 15 mg daily, Tylenol. ASSESSMENT: 1. Acute on chronic hyponatremia, status post severe hyponatremia at the time of admission. Now sodium is at chronic baseline level. 2. Chronic kidney disease, stage III. 3. Coronary artery disease , percutaneous transluminal coronary angioplasty and stents, congestive heart failure. 4. Non-insulin dependant diabetes mellitus. 5. History of gastrointestinal bleed. 6. Cardiac cirrhosis. 7. History of pneumonia, recently. 8. History of thrombocytopenia. PLAN: 1. Discontinue IV fluids. 2. The patient is eating and drinking normally. Sodium is at baseline levels now. 3. We will need to restart her diuretics at some point. 4. The patient is stable from the renal standpoint. 5. Discharge planning. Frieda Rodriguez MD [facility] # [id number]
--- NOTE | 2018-01-08 13:39 | DS ---
Copied To: Harsh Morataya MD Attending MD: Harsh Morataya MD HISTORY OF PRESENT ILLNESS: The patient is 82 years old who was admitted because of critically low sodium of 108. Patient was given hypotonic saline along with IV fluids. She did well, was in ICU for three days, observed closely for seizures and did well. Transferred to TCU. Complained of feeling weak, tired, dizzy at times. PHYSICAL EXAMINATION: VITAL SIGNS: She is afebrile, pulse 82, respiration 20, blood pressure 140/73. LUNGS: Bilateral fair airflow. No rhonchi or crackles. HEART: S1 and S2 audible. ABDOMEN: Soft, nontender. No rebound, no guarding. NEUROLOGIC: She is awake, alert, oriented, able to communicate. LABORATORY DATA: WBC is 11.7, hemoglobin 12, hematocrit 34.6, platelets 137. PT 13.4, INR 1.17. Chemistry: Sodium 130, potassium 3.9, chloride 96, CO2 26, BUN 34, creatinine 1.3, blood sugar of 378. Urine positive for enterococcus avium. Blood cultures are negative. ASSESSMENT: 1. Status post hyponatremia. 2. Insulin-dependent diabetes. 3. Hypertension. 4. Hyperlipidemia. 5. Cardiac cirrhosis. 6. Coronary artery disease, status post angioplasty. PLAN: Patient is being discharged back to [facility]. We will continue all medication. We will monitor her CBC and CMP weekly. Harsh Morataya MD
== END 2018-01-07 16:15 | DRG 641 ==
LOC: ED 14:26 → ERH 16:15 → CCU 18:52 → 3RSO 01-07 02:59
PROVIDERS: ADMIT Internal Medicine; ATTEND Internal Medicine
DX: E87.1 Hypo-osmolality and hyponatremia (principal); N17.9 Acute kidney failure, unspecified; I13.0 Hypertensive heart and chronic kidney disease with heart failure and stage 1 through stage 4 chronic kidney disease, or unspecified chronic kidney disease; K76.1 Chronic passive congestion of liver; I25.10 Atherosclerotic heart disease of native coronary artery without angina pectoris; E11.22 Type 2 diabetes mellitus with diabetic chronic kidney disease; D69.6 Thrombocytopenia, unspecified; G89.29 Other chronic pain; E78.00 Pure hypercholesterolemia, unspecified; I50.810 Right heart failure, unspecified; N18.3 Chronic kidney disease, stage 3 (moderate); J44.9 Chronic obstructive pulmonary disease, unspecified; E03.9 Hypothyroidism, unspecified; I27.20 Pulmonary hypertension, unspecified; M54.9 Dorsalgia, unspecified; R26.2 Difficulty in walking, not elsewhere classified; Z79.4 Long term (current) use of insulin; Z95.5 Presence of coronary angioplasty implant and graft; Z90.49 Acquired absence of other specified parts of digestive tract

== ENCOUNTER 2018-01-26 19:14 | Inpatient (IN) | payer MEDICARE, OTHER ==
[2018-01-26] MEDS ORDERED: Sodium Chloride 0.9% 1,000 ML IV SCH (20:00)
[2018-01-26] MEDS ORDERED: Morphine 2 mg/ml ISec IVP STA ×2 (20:00→23:20)
--- NOTE | 2018-01-26 20:10 | ED PDOC ---
Arrival/HPI - General Chief Complaint: Syncope Time Seen by Provider: 01/26/18 19:17 Historian: Patient - History of Present Illness Narrative History of Present Illness (Text): 01/26/18 20:07 82 [facility] old [place] resident female, whose past medical history includes COPD, hypertension, diabetes, CHF, and GERD, presents to the emergency department for evaluation following unresponsive episode with hypotension and vomiting. Patient currently feels nauseous with abdominal pain. Patient has no history of diarrhea. Patient states she feels slightly dizzy. Patient denies any headache, fever, chills, or any other complaints. Time/Duration: Prior to Arrival Symptom Onset: Gradual Symptom Course: Unchanged Past Medical History - Provider Review Nursing Documentation Reviewed: Yes - Infectious Disease Hx of Infectious Diseases: None - Tetanus Immunization Tetanus Immunization: Unknown - Cardiac Hx Cardiac Disorders: Yes Hx Congestive Heart Failure: Yes Hx Hypertension: Yes - Pulmonary Hx Respiratory Disorders: Yes Hx Bronchitis: Yes Hx Chronic Obstructive Pulmonary Disease (COPD): Yes Hx Pneumonia: Yes - Neurological Hx Neurological Disorder: Yes Hx Vertigo: Yes - HEENT Hx HEENT Disorder: No - Renal Hx Renal Disorder: Yes Hx Renal Failure: Yes - Endocrine/Metabolic Hx Endocrine Disorders: Yes Hx Diabetes Mellitus Type 2: Yes - Hematological/Oncological Hx Blood Disorders: Yes Hx Anemia: Yes Hx Blood Transfusions: Yes - Integumentary Hx Dermatological Disorder: Yes Hx Cellulitis: Yes - Musculoskeletal/Rheumatological Hx Musculoskeletal Disorders: Yes Hx Arthritis: Yes - Gastrointestinal Hx Gastrointestinal Disorders: Yes Hx Gastroesophageal Reflux: Yes - Genitourinary/Gynecological Hx Genitourinary Disorders: Yes - Psychiatric Hx Psychophysiologic Disorder: Yes Hx Anxiety: Yes Hx Substance Use: No - Surgical History Hx Appendectomy: Yes Hx Coronary Stent: Yes - Anesthesia Hx Anesthesia: Yes Hx Anesthesia Reactions: No Hx Malignant Hyperthermia: No - Suicidal Assessment Feels Threatened In Home Enviroment: No Family/Social History - Physician Review Nursing Documentation Reviewed: Yes Family/Social History: No Known Family HX Smoking Status: Never Smoked Hx Alcohol Use: No Hx Substance Use: No Hx Substance Use Treatment: No Allergies/Home Meds Allergies/Adverse Reactions: Allergies shellfish derived Allergy (Verified 01/26/18 19:22) RASH Home Medications: Home Meds Medication Instructions Recorded Confirmed Furosemide [Lasix] 40 mg PO DAILY 04/14/15 01/26/18 Amlodipine Besylate [Norvasc] 10 mg PO DAILY 08/23/15 01/26/18 Aspirin [Aspirin Chewable] 81 mg PO DAILY 08/23/15 01/26/18 Isosorbide Mononitrate [Imdur] 60 mg PO DAILY 08/23/15 01/26/18 Insulin Lispro Mix 75/25 [HumaLOG 10 units SC .BEFOREDINNER 10/22/15 01/26/18 Mix 75/25] ALPRAZolam [Xanax] 0.25 mg PO Q12H PRN 01/03/18 01/26/18 Aluminum Hydroxide/Magnesium H 5 ml PO Q4 PRN 01/03/18 01/26/18 [Maalox 30 ml] Insulin Lispro Mix 75/25 [HumaLOG 15 units SC ACB 01/03/18 01/26/18 Mix 75/25] Insulin Lispro [humALOG] 0 units SC ACHS 01/03/18 01/26/18 Magnesium Hydroxide [Milk Of 5 ml PO Q24H PRN 01/03/18 01/26/18 Magnesia] Ondansetron HCl [Zofran] 4 mg PO Q6H PRN 01/03/18 01/26/18 Pantoprazole Sodium [Protonix] 40 mg PO DAILY 01/03/18 01/26/18 Spironolactone [Aldactone] 50 mg PO BID 01/03/18 01/26/18 Zolpidem [Ambien] 5 mg PO HS PRN 01/03/18 01/26/18 metOLazone [Zaroxolyn] 2.5 mg PO DAILY 01/03/18 01/26/18 traMADol 50 mg PO Q8 01/03/18 01/26/18 Review of Systems - Physician Review All systems were reviewed & negative as marked: Yes - Review of Systems Constitutional: Normal. absent: Fevers, Night Sweats Eyes: Normal ENT: Normal Respiratory: Normal Cardiovascular: Normal Gastrointestinal: Abdominal Pain, Nausea, Vomiting. absent: Diarrhea Genitourinary Female: Normal Musculoskeletal: Normal Skin: Normal Neurological: Dizziness. absent: Headache Endocrine: Normal Hemo/Lymphatic: Normal Psychiatric: Normal Physical Exam Vital Signs Reviewed: Yes Vital Signs Temp Pulse Resp BP Pulse Ox 01/26/18 19:23 98.0 F 71 16 135/63 100 Temperature: Afebrile Blood Pressure: Normal Pulse: Regular Respiratory Rate: Normal Appearance: Positive for: Well-Appearing, Non-Toxic, Comfortable Pain Distress: None Mental Status: Positive for: Alert and Oriented X 3 Finger Stick Blood Glucose: 161 - Systems Exam Head: Present: Atraumatic, Normocephalic Pupils: Present: PERRL Extroacular Muscles: Present: EOMI Conjunctiva: Present: Normal Mouth: Present: Moist Mucous Membranes Neck: Present: Normal Range of Motion Respiratory/Chest: Present: Clear to Auscultation, Good Air Exchange. No: Respiratory Distress, Accessory Muscle Use Cardiovascular: Present: Regular Rate and Rhythm, Normal S1, S2. No: Murmurs Abdomen: No: Tenderness, Rebound, Guarding Back: Present: Normal Inspection Upper Extremity: Present: Normal Inspection. No: Cyanosis, Edema Lower Extremity: Present: Normal Inspection. No: Edema Neurological: Present: GCS=15, CN II-XII Intact, Speech Normal Skin: Present: Warm, Dry, Normal Color. No: Rashes Psychiatric: Present: Alert, Oriented x 3, Normal Insight, Normal Concentration Medical Decision Making ED Course and Treatment: 01/26/18 20:14 Impression: 82 year old female presents to the emergency department for evaluation status post unresponsive episode with vomiting and hypotension. Plan: -- CT ABD & Pelvis -- CT Head -- EKG -- Labs -- Chest X-ray -- Urinalysis -- Morphine -- Pepcid -- Reassess and disposition Prior Visits: Notes and results from previous visits were reviewed. Progress Notes: Reviewed EKG, junctional rhythm at [address] bpm[address] Non-specific ST/T wave changes. 01/26/18 21:37 Reviewed radiology, CXR shows CT Head Impression: Brain: See below. Ventricles: There is moderate ventriculomegaly and cortical sulci widening consistent with generalized atrophy. There are areas of diminished density in the periventricular white matter bilaterally consistent with chronic small vessel ischemic changes. Ricks-white matter differentiation is intact and unremarkable. No evidence of acute intracranial bleed. Bones/joints: Unremarkable. No acute fracture. Soft tissues: Unremarkable. Sinuses: Unremarkable as visualized. No acute sinusitis. Mastoid air cells: Unremarkable as visualized. No mastoid effusion. IMPRESSION: Generalized atrophy and chronic small vessel ischemic changes. Dictated and Authenticated by: Angel Bowling MD CT Abdomen and Pelvis Impression: Lung bases: Bilateral lung base dependent atelectasis. ABDOMEN: Liver: Nodular changes on the liver surface. Gallbladder and bile ducts: Stones in the gallbladder. No gallbladder wall thickening. No pericholecystic fluid. No ductal dilation. Pancreas: Unremarkable. No ductal dilation. Spleen: Unremarkable. No splenomegaly. Adrenals: Unremarkable. No mass. Kidneys and ureters: Kidneys are unremarkable. No hydronephrosis or hydroureter. No evidence of nephrolithiasis. Stomach and bowel: Surgical changes from partial colectomy.No areas of wall thickening in the large bowel. No evidence of large bowel obstruction. No pericolonic inflammatory changes to suggest acute diverticulitis. No wall thickening in the small bowel. No evidence of small bowel obstruction. Stomach is unremarkable. PELVIS: Appendix: Surgical changes in right lower quadrant for appendectomy. No abscess collection. Bladder: Unremarkable. No stones. Reproductive: Unremarkable as visualized. ABDOMEN and PELVIS: Intraperitoneal space: Unremarkable. No free air. No significant fluid collection. Bones/joints: Degenerative changes in the spine. No evidence of fracture. No dislocation. Soft tissues: Unremarkable. Vasculature: Unremarkable. No abdominal aortic aneurysm. Lymph nodes: Unremarkable. No enlarged lymph nodes. IMPRESSION: 1. Nodular changes on the liver surface. Please correlate clinically for cirrhosis. 2. Stones in the gallbladder. No gallbladder wall thickening. No pericholecystic fluid Dictated and Authenticated by: Angel Bowling MD 01/26/2018 9:27 PM Eastern Time ([place] & [place]) 01/26/18 21:[address] Morataya, who is aware and agrees with plan. Accepts pt in to her service. Pt will go to Telemetry observation for syncope. - Lab Interpretations Lab Results: 01/26/18 20:00 01/26/18 20:00 Lab Results 01/26/18 20:00: WBC 10.1, RBC 3.90, Hgb 12.5, Hct 34.9 L, MCV 89.5, MCH 32.1, MCHC 35.8, RDW 15.0 H, Plt Count 204, MPV 9.6 01/26/18 20:00: PT 12.6 H, INR 1.10, APTT 29.6 01/26/18 20:00: Sodium 128 L, Potassium 4.9, Chloride 98, Carbon Dioxide 18 L, Anion Gap 18, BUN 39 H, Creatinine 1.9 H, Est GFR ( Amer) 31, Est GFR ( Non-Af Amer) 25, Random Glucose 125 H, Calcium 9.2, Total Bilirubin 0.4, AST 43 H, ALT 27, Alkaline Phosphatase 81, Lactate Dehydrogenase 626, Total Creatine Kinase 33 L, Troponin I 0.08 D, Total Protein 6.7, Albumin 3.7, Globulin 2.9, Albumin/Globulin Ratio 1.3, Lipase 380 H I have reviewed the lab results: Yes - RAD Interpretation Radiology Orders: 01/26/18 19:58 ABD & PELVIS W/O PO OR IV CONT [CT] Stat HEAD W/O CONTRAST [CT] Stat 01/26/18 19:59 CHEST PORTABLE [RAD] Stat Food Mixer Assembler: ED Physician, Radiologist - EKG Interpretation Interpreted by ED Physician: Yes Type: 12 lead EKG - Medication Orders Current Medication Orders: Sodium Chloride (Sodium Chloride 0.9%) 500 mls @ 50 mls/hr IV .Q10H JAK Last Admin: 01/26/18 20:08 Dose: 50 mls/hr eMAR Start Stop Document 01/26/18 20:08 (Rec: [facility]/26/18 20:08 [id number] Intravenous Solution Start Date 01/26/18 Start Time 20:08 Discontinued Medications Famotidine (Pepcid) 20 mg IVP STAT STA Stop: 01/26/18 20:01 Last Admin: 01/26/18 20:12 Dose: 20 mg IVP Administration Document 01/26/18 20:12 (Rec: 01/26/18 20:12 [id number] Charges for Administration # of IVP Administrations 1 Morphine Sulfate (Morphine) 2 mg IVP STAT STA Stop: 01/26/18 20:01 Last Admin: 01/26/18 20:12 Dose: 2 mg MAR Pain Assessment Document 01/26/18 20:12 (Rec: 01/26/18 20:13 [id number] Pain Reassessment Is this a pain reassessment? Yes Sleep Is patient sleeping during reassessment? No Presence of Pain Presence of Pain Yes Pain Scale Used Pain Scale Used Numeric Location Pain Location Body Site Chest Abdomen Description Description Constant Intensity of Pain at present 6 Pain Behavior Moaning Facial Grimacing IVP Administration Document 01/26/18 20:12 (Rec: 01/26/18 20:13 [id number]) Charges for Administration # of IVP Administrations 1 Ondansetron HCl (Zofran Inj) 4 mg IVP ONCE ONE Stop: 01/26/18 20:01 Last Admin: 01/26/18 20:08 Dose: 4 mg IVP Administration Document 01/26/18 20:08 (Rec: 01/26/18 20:08 [id number]) Charges for Administration # of IVP Administrations 1 - Scribe Statement The provider has reviewed the documentation as recorded by the Scribe Geovanni Lelbanc Provider Scribe Attestation: All medical record entries made by the Scribe were at my direction and personally dictated by me. I have reviewed the chart and agree that the record accurately reflects my personal performance of the history, physical exam, medical decision making, and the department course for this patient. I have also personally directed, reviewed, and agree with the discharge instructions and disposition. Disposition/Present on Arrival - Present on Arrival Any Indicators Present on Arrival: No History of DVT/PE: No History of Uncontrolled Diabetes: Yes Urinary Catheter: Yes History of Decub. Ulcer: No History Surgical Site Infection Following: None - Disposition Have Diagnosis and Disposition been Completed?: Yes Diagnosis: Syncope, Abdominal pain, Cholelithiasis Disposition: HOSPITALIZED Disposition Time: 22:11 Condition: STABLE Discharge Instructions (ExitCare): Syncope (ED) Referrals: Harsh Morataya MD [Primary Care Provider] - Follow up with primary Forms: [employer] (Estonian)
[2018-01-26] MEDS ORDERED: Sodium Chloride 0.9% 500 ML IV SCH (20:15)
[2018-01-26 20:18] LABS: HEMOGLOBIN 12.5 g/dL (12.0-16.0); MEAN CELL VOLUME 89.5 fl (80.0-105.0); MEAN CORPUSCULAR HEMOGLOBIN 32.1 pg (25.0-35.0); MEAN CORPUSCULAR HGB CONC 35.8 g/dl (31.0-37.0); MEAN PLATELET VOLUME 9.6 fl (7.0-11.0); RBC 3.9 10^6/uL (3.5-6.1); WHITE BLOOD COUNT 10.1 10^3/ul (4.5-11.0)
[2018-01-26 20:23] LABS: INR 1.1; PARTIAL THROMBOPLASTIN TIME 29.6 Seconds (25.1-36.5); PROTHROMBIN TIME 12.6 SECONDS (9.4-12.5)
[2018-01-26 20:59] LABS: ALB/GLOB RATIO 1.3 (1.1-1.8); ALBUMIN 3.7 g/dL (3.0-4.8); CALCIUM 9.2 mg/dL (8.4-10.5)
[2018-01-26 21:04] LABS: TROPONIN I 0.08 ng/mL
[2018-01-26] MEDS ORDERED: Sodium Chloride 0.45% 1,000 ML IV SCH (22:45)
[2018-01-27] MEDS: Insulin Lispro (humaLOG) MIX 75/25(10 ml) SC SCH ×3 (00:12→17:44)
[2018-01-27 00:25] LABS: URINE BILIRUBIN NEGATIVE (NEGATIVE); URINE BLOOD SMALL (NEGATIVE); URINE GLUCOSE (UA) NEGATIVE (NEGATIVE); URINE LEUKOCYTE ESTERASE NEGATIVE Leu/uL (NEGATIVE); URINE PROTEIN 30 mg/dL (<30 mg/dL); URINE UROBILINOGEN 0.2 E.U./dL (<1 E.U./dL)
[2018-01-27 00:38] VITALS: BMI 20.9
[2018-01-27 00:46] LABS: URINE APPEARANCE SL CLOUDY (CLEAR); URINE COLOR YELLOW (YELLOW)
[2018-01-27 00:49] LABS: URINE BACTERIA FEW (NEG); URINE WBC 0 - 2 /hpf (0-6)
[2018-01-27] MEDS ORDERED: DiphenhydrAMINE 50 mg/ml Inj IVP STA (01:21)
[2018-01-27] MEDS: Pantoprazole 40 mg EC Tab PO SCH (06:06)
[2018-01-27 07:39] LABS: BASO # 0.07 K/mm3 (0.0-2.0); BASO % 0.6 % (0.0-3.0); EOS # 0.2 (0.0-0.7); EOS % 1.5 % (1.5-5.0); GRAN # 5.36 (1.4-6.5); HEMOGLOBIN 12.2 g/dL (12.0-16.0); LYMPH # 4.4 (1.2-3.4); LYMPH % 40.1 % (22.0-35.0); MEAN CELL VOLUME 89.9 fl (80.0-105.0); MEAN CORPUSCULAR HEMOGLOBIN 31.7 pg (25.0-35.0); MEAN CORPUSCULAR HGB CONC 35.3 g/dl (31.0-37.0); MEAN PLATELET VOLUME 9.9 fl (7.0-11.0); MONO % 8.8 % (1.0-6.0); RBC 3.85 10^6/uL (3.5-6.1); RED CELL DISTRIBUTION WIDTH 15.2 % (11.5-14.5)
[2018-01-27] MEDS: Levalbuterol 0.63 MG/3 ML Inhal Soln UD IH SCH ×3 (07:41→20:03)
--- NOTE | 2018-01-27 08:18 | CT ---
Date of service: 01/26/2018 PROCEDURE: CT HEAD WITHOUT CONTRAST. HISTORY: syncope COMPARISON: 01/03/2018. TECHNIQUE: Axial computed tomography images were obtained through the head/brain without intravenous contrast. Radiation dose: Total exam DLP = 795.35 mGy-cm. This CT exam was performed using one or more of the following dose reduction techniques: Automated exposure control, adjustment of the mA and/or kV according to patient size, and/or use of iterative reconstruction technique. FINDINGS: HEMORRHAGE: No intracranial hemorrhage. BRAIN: There are mild chronic microangiopathic changes. There is no mass, mass effect or abnormal extra-axial fluid collection. There is no territorial infarction. The midline sagittal structures are normal. VENTRICLES: There is mild age-related global parenchymal volume loss and proportionate enlargement of the ventricles and cortical sulci. CALVARIUM: There is no calvarial fracture or extracranial soft tissue swelling. PARANASAL SINUSES: Unremarkable as visualized. No significant inflammatory changes. MASTOID AIR CELLS: Unremarkable as visualized. No inflammatory changes. OTHER FINDINGS: None. IMPRESSION: No acute intracranial abnormality. Mild chronic microangiopathic changes and mild age-related global parenchymal volume loss. A preliminary report was provided by [facility] [facility].
[2018-01-27 08:43] LABS: ALB/GLOB RATIO 1.2 (1.1-1.8); ALBUMIN 3.4 g/dL (3.0-4.8); CALCIUM 9.1 mg/dL (8.4-10.5)
--- NOTE | 2018-01-27 09:01 | CT ---
Date of service: 01/26/2018 PROCEDURE: CT Abdomen and Pelvis without intravenous contrast HISTORY: Abdominal pain COMPARISON: 01/03/2018. TECHNIQUE: CT scan of the abdomen and pelvis was performed without administration of intravenous contrast. Oral contrast was not administered. Coronal and sagittal reformatted images were obtained. . Radiation dose: Total exam DLP = 472.10 mGy-cm. This CT exam was performed using one or more of the following dose reduction techniques: Automated exposure control, adjustment of the mA and/or kV according to patient size, and/or use of iterative reconstruction technique. FINDINGS: LOWER THORAX: There is dependent atelectasis in the lung bases. Mild cardiomegaly. Advanced atherosclerotic coronary artery calcifications. LIVER: Show liver has a nodular contour. . No intrahepatic ductal dilatation. GALLBLADDER AND BILE DUCTS: There are multifocal gallstones. No biliary dilatation. PANCREAS: Normal in size. No ductal dilatation. SPLEEN: Normal in size. ADRENALS: Normal in size. No discrete nodule. KIDNEYS AND URETERS: Normal in size without nephrolithiasis. No hydronephrosis. VASCULATURE: No aortic aneurysm. BOWEL: The small bowel loops are normal in caliber. Status post right hemicolectomy. There is an ileotransverse anastomosis. There is large amount of stool in the transverse colon. No bowel obstruction. APPENDIX: Normal appendix. PERITONEUM: No free fluid. No free air. LYMPH NODES: No enlarged lymph nodes. BLADDER: Well distended and grossly normal in appearance. REPRODUCTIVE: The uterus is normal in size BONES: No acute fracture. OTHER FINDINGS: None. IMPRESSION: No acute abdominal or pelvic abnormality. Cholelithiasis. Status post right colectomy and ileotransverse anastomosis, large amount of stool in the colon digit no bowel knee there is a hepatic cirrhosis. A preliminary report was provided by [employer].
--- NOTE | 2018-01-27 09:08 | HP ---
Copied To: Harsh Morataya MD Attending MD: Harsh Morataya MD HISTORY OF PRESENT ILLNESS: The patient is 82-year-old, known to me from multiple previous admissions. According to shelter staff, the patient resides in [place] that she was found to be unresponsive and she had episode of epigastric discomfort with vomiting, and was unresponsive, so ambulance was called. The patient was brought to Emergency Room. By the time the patient reached the emergency room, she was fully awake and alert, complaining of epigastric discomfort. Still feels a little nauseous. No fever or chills. No history of diarrhea. Complained of feeling lightheaded. No fever or chills. No hemoptysis. No hematemesis. PAST MEDICAL HISTORY: Significant for, 1. History of hypertension. 2. Insulin-dependent diabetes. 3. Cholelithiasis. 4. Cirrhosis of the liver. 5. Coronary artery disease, status post angioplasty. 6. History of cardiac cath in 11/2017, in which her LAD has diffuse atherosclerosis, 50% stenosis in the mid LAD, however the stent was patent stenosis in the proximal portion of the small diagonal blood vessel, so was the circumflex, but no critical stenosis. 7. Chronic anemia. 8. Thrombocytopenia. 9. Chronic kidney disease. 10. History of hyponatremia. ALLERGIES: SHE IS ALLERGIC TO SHELLFISH AND DERIVATIVES. MEDICATIONS: In the shelter, she is on Lasix 40 mg daily, aspirin 81 daily, amlodipine 10 mg daily, Xanax 0.25 every 12 p.r.n., Zaroxolyn 2.5 daily, Ambien 5 mg at bedtime, tramadol as needed, Protonix 40 daily, Xopenex and insulin. SOCIAL HISTORY: Denies smoking, drinking or alcohol use. REVIEW OF SYSTEMS: Significant for some epigastric discomfort. PHYSICAL EXAMINATION: GENERAL: The patient is awake and alert, able to communicate. VITAL SIGNS: She is afebrile, pulse 71, respirations 16, blood pressure 135/63. LUNGS: Bilateral fair airflow, decreased at bases. HEART: S1 and S2 audible. ABDOMEN: Soft. Slight epigastric discomfort. NEUROLOGICAL: She is awake, alert, oriented, communicative. LABORATORY DATA: WBC is 10.1, hemoglobin 12.5, hematocrit 34.9, platelet 204. PT 12.6, INR 1.1. Chemistry: Sodium 128, potassium 4.9, chloride 98, CO2 of 18, BUN 39, creatinine 1.9, blood sugar of 125. LFTs are within normal limit. Lipase 380. CT scan of the abdomen and pelvis is pending. CT scan of the head is negative. ASSESSMENT: 1. Questionable brief period of unresponsiveness, etiology unclear. 2. Abdominal pain secondary to gastritis versus cholelithiasis. 3. Insulin-dependent diabetes. 4. Hypertension. 5. Coronary artery disease. 6. Chronic kidney disease. 7. Hyponatremia. PLAN: We will keep the patient on clear liquid, give her IV fluid. Start her on Protonix. Give Zofran as needed. We will reevaluate the patient in the a.m. Harsh Morataya MD
[2018-01-27] MEDS ORDERED: Sod Polystyrene Sulf 15 gm/60 ml Susp PO ONE (10:14)
--- NOTE | 2018-01-27 10:29 | RAD ---
Date of service: 01/26/2018 HISTORY: vomiting COMPARISON: 01/03/2018. FINDINGS: LUNGS: The lungs are well inflated and clear. PLEURA: No significant pleural effusion identified, no pneumothorax apparent. CARDIOVASCULAR: The heart is normal in size. Atherosclerotic aortic arch calcifications are present. OSSEOUS STRUCTURES: Within normal limits for the patient's age. VISUALIZED UPPER ABDOMEN: Normal. OTHER FINDINGS: None. IMPRESSION: No active pulmonary disease.
[2018-01-27] MEDS: metOLazone 2.5 MG TAB PO SCH (10:41)
--- NOTE | 2018-01-27 12:54 | CARD ---
APPROVED REPORT Date of service: 01/26/2018 EKG Measurement Heart [id number] <Conclusion> Accelerated Junctional rhythm Nonspecific ST abnormality Abnormal ECG
[2018-01-27] MEDS: Insulin Reg-MEDIUM-Coverage SC SCH ×2 (17:42→21:34)
--- NOTE | 2018-01-27 19:05 | PN ---
Copied To: Harsh Morataya MD Attending MD: Harsh Morataya MD DATE: 01/27/2018 SUBJECTIVE: Patient is 82 years old, seen and examined, seems to be short of breath, eating and tolerating. PHYSICAL EXAMINATION: VITAL SIGNS: She is afebrile, pulse 63, respirations 18, and blood pressure 117/59. LUNGS: Bilateral good airflow. No rhonchi or crackle. HEART: S1 and S2 audible. ABDOMEN: Soft, nontender. No rebound. No guarding. NEUROLOGICAL: Patient is awake, alert, oriented, and able to communicate. LABORATORY EXAM: WBC is 11, hemoglobin 12.2, hematocrit 34.6, and platelets 177. Chemistry: Sodium 132, potassium 5.7, chloride 99, CO2 of 24. BUN 37, creatinine 1.9. Blood sugar of 296. Lipase 380. CT scan of the abdomen and pelvis was done that shows cholelithiasis, status post right colectomy and ileotransverse anastomosis. Large amount of stool in the colon. I will discontinue IV fluid, give her Lasix. She seems to be little short of breath. Patient does not go back to the same [facility]. She states she wants to go home. We will talk to the patient's family and make further disposition plan in a.m. Give her dose of Kayexalate. Follow up her potassium level in a.m. Harsh Morataya MD
[2018-01-28] MEDS: Pantoprazole 40 mg EC Tab PO SCH (05:23)
[2018-01-28] MEDS: Levalbuterol 0.63 MG/3 ML Inhal Soln UD IH SCH ×2 (07:20→13:19)
[2018-01-28 08:04] VITALS: BP 123/74; RESP 20; TEMP 98.1; O2SAT 96
[2018-01-28] MEDS: Insulin Reg-MEDIUM-Coverage SC SCH ×2 (08:22→12:05)
[2018-01-28] MEDS: Insulin Lispro (humaLOG) MIX 75/25(10 ml) SC SCH (08:23)
[2018-01-28] MEDS: metOLazone 2.5 MG TAB PO SCH (10:04)
[2018-01-28 13:11] LABS: BASO # 0.07 K/mm3 (0.0-2.0); BASO % 0.9 % (0.0-3.0); EOS # 0.1 (0.0-0.7); EOS % 1.8 % (1.5-5.0); GRAN # 4.23 (1.4-6.5); HEMOGLOBIN 12.7 g/dL (12.0-16.0); LYMPH # 2.5 (1.2-3.4); LYMPH % 33.1 % (22.0-35.0); MEAN CELL VOLUME 89.6 fl (80.0-105.0); MEAN CORPUSCULAR HEMOGLOBIN 32.1 pg (25.0-35.0); MEAN CORPUSCULAR HGB CONC 35.8 g/dl (31.0-37.0); MEAN PLATELET VOLUME 9.5 fl (7.0-11.0); MONO # 0.5 (0.1-0.6); MONO % 7.2 % (1.0-6.0); RBC 3.96 10^6/uL (3.5-6.1); RED CELL DISTRIBUTION WIDTH 14.6 % (11.5-14.5); WHITE BLOOD COUNT 7.4 10^3/ul (4.5-11.0)
[2018-01-28 13:31] LABS: CALCIUM 8.7 mg/dL (8.4-10.5)
[2018-01-28 13:46] VITALS: PULSE 84
--- NOTE | 2018-01-28 15:01 | PN ---
Copied To: Harsh Morataya MD Attending MD: Harsh Morataya MD DATE: 01/28/2018 SUBJECTIVE: The patient is 82-year-old, seen and examined, sitting in chair, seems to be comfortable. Less shortness of breath. She states her nausea has gone, wants to eat. PHYSICAL EXAMINATION: VITAL SIGNS: She is afebrile, pulse 80, respiration 20, blood pressure 123/74. LUNGS: Bilateral fair airflow. No rhonchi or crackle. HEART: S1 and S2 audible. ABDOMEN: Soft, nontender. No rebound, no guarding. NEUROLOGIC: She is awake, alert, oriented, communicative. LABORATORY DATA: Chemistry: Blood sugar is 342. Urinalysis is unremarkable. ASSESSMENT: 1. Status post intractable nausea and vomiting. 2. Hyperkalemia. 3. History of hypertension. 4. Coronary artery disease. 5. Cholelithiasis. 6. Status post right partial colectomy. PLAN: Since the patient is clinically stable, we will advance diet and encourage ambulation. 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 Harsh Morataya MD
== END 2018-01-28 20:16 | DRG 392 ==
LOC: ED 19:14 → ERH 22:08 → 3RNO 23:53 → OBSVTOIN 01-27 13:56 → 3RSO 01-28 09:17
PROVIDERS: ADMIT Internal Medicine; ATTEND Internal Medicine
DX: K29.70 Gastritis, unspecified, without bleeding (principal); I13.0 Hypertensive heart and chronic kidney disease with heart failure and stage 1 through stage 4 chronic kidney disease, or unspecified chronic kidney disease; E87.1 Hypo-osmolality and hyponatremia; K80.70 Calculus of gallbladder and bile duct without cholecystitis without obstruction; R55 Syncope and collapse; R11.2 Nausea with vomiting, unspecified; E87.5 Hyperkalemia; I50.9 Heart failure, unspecified; N18.9 Chronic kidney disease, unspecified; I25.10 Atherosclerotic heart disease of native coronary artery without angina pectoris; E11.22 Type 2 diabetes mellitus with diabetic chronic kidney disease; J44.9 Chronic obstructive pulmonary disease, unspecified; K21.9 Gastro-esophageal reflux disease without esophagitis; K74.60 Unspecified cirrhosis of liver; D64.9 Anemia, unspecified; Z79.4 Long term (current) use of insulin; Z79.82 Long term (current) use of aspirin; Z87.01 Personal history of pneumonia (recurrent); Z95.5 Presence of coronary angioplasty implant and graft; Z98.0 Intestinal bypass and anastomosis status

== ENCOUNTER 2018-03-20 14:22 | Inpatient (IN) | payer MEDICARE, OTHER ==
--- NOTE | 2018-03-20 14:52 | ED PDOC ---
Arrival/HPI - General Historian: Patient - History of Present Illness Narrative History of Present Illness (Text): 03/20/18 14:52 Patient is a 82 year old female with a past medical history of Cirrhosis, anemia, CHF, HTN, DM, CAD with stent, CKD and COPD presenting to the emergency room with a complaint of shortness of breath/difficulty breath. Patient was recently [facility] a [facility] ago. The difficulty breathing began 3 days ago. It has been getting progressively worse and now she feels short of breath. She has a chronic cough that has been getting worse during that time. She reports a headache and chronic low back pain today as well. She lives at home with her who takes care of her along with a visiting nurse that comes twice a week. Denies fevers, chills, nausea, vomiting, diarrhea, constipation, chest pain, numbness or tingling. PMD: Dr. Morataya Time/Duration: < week (3 days) Symptom Onset: Gradual Symptom Course: Worsening Quality: Other (SOB) <Brad Barros - Last Filed: 03/20/18 16:29> <Ed José - Last Filed: 03/20/18 19:51> - General Chief Complaint: Cough, Cold, Congestion Time Seen by Provider: 03/20/18 14:23 Past Medical History - Provider Review Nursing Documentation Reviewed: Yes - Infectious Disease Hx of Infectious Diseases: None - Tetanus Immunization Tetanus Immunization: Unknown - Cardiac Hx Cardiac Disorders: Yes Hx Congestive Heart Failure: Yes Hx Hypertension: Yes - Pulmonary Hx Chronic Obstructive Pulmonary Disease (COPD): Yes - Neurological Hx Neurological Disorder: Yes - HEENT Hx HEENT Disorder: No - Renal Hx Renal Failure: Yes - Endocrine/Metabolic Hx Diabetes Mellitus Type 2: Yes - Hematological/Oncological Hx Blood Disorders: Yes Hx Anemia: Yes - Integumentary Hx Dermatological Disorder: Yes - Musculoskeletal/Rheumatological Hx Arthritis: Yes - Gastrointestinal Hx Gastrointestinal Disorders: Yes Hx Gastroesophageal Reflux: Yes - Genitourinary/Gynecological Hx Genitourinary Disorders: Yes - Psychiatric Hx Psychophysiologic Disorder: Yes Hx Anxiety: Yes Hx Substance Use: No - Surgical History Hx Appendectomy: Yes Hx Coronary Stent: Yes - Anesthesia Hx Anesthesia: Yes Hx Anesthesia Reactions: No Hx Malignant Hyperthermia: No - Suicidal Assessment Feels Threatened In Home Enviroment: No <Brad Barros - Last Filed: 03/20/18 16:29> Family/Social History - Physician Review Nursing Documentation Reviewed: Yes Family/Social History: Unknown Family HX Smoking Status: Never Smoked Hx Alcohol Use: No Hx Substance Use: No Hx Substance Use Treatment: No <Brad Barros - Last Filed: 03/20/18 16:29> Allergies/Home Meds <Brad Barros - Last Filed: 03/20/18 16:29> <Ed José - Last Filed: 03/20/18 19:51> Allergies/Adverse Reactions: Allergies shellfish derived Allergy (Verified 03/20/18 17:22) RASH Home Medications: Home Meds Medication Instructions Recorded Confirmed RX: Furosemide [Lasix] 40 mg PO DAILY 04/14/15 01/26/18 RX: Amlodipine Besylate [Norvasc] 10 mg PO DAILY 08/23/15 01/26/18 RX: Aspirin [Aspirin Chewable] 81 mg PO DAILY 08/23/15 01/26/18 RX: Isosorbide Mononitrate [Imdur] 60 mg PO DAILY 08/23/15 01/26/18 RX: Insulin Lispro Mix 75/25 10 units SC .BEFOREDINNER 10/22/15 01/26/18 [HumaLOG Mix 75/25] RX: ALPRAZolam [Xanax] 0.25 mg PO Q12H PRN 01/03/18 01/26/18 RX: Aluminum Hydroxide/Magnesium H 5 ml PO Q4 PRN 01/03/18 01/26/18 [Maalox 30 ml] RX: Insulin Lispro Mix 75/25 15 units SC ACB 01/03/18 01/26/18 [HumaLOG Mix 75/25] RX: Insulin Lispro [humALOG] 0 units SC ACHS 01/03/18 01/26/18 RX: Magnesium Hydroxide [Milk Of 5 ml PO Q24H PRN 01/03/18 01/26/18 Magnesia] RX: Ondansetron HCl [Zofran] 4 mg PO Q6H PRN 01/03/18 01/26/18 RX: Pantoprazole Sodium [Protonix] 40 mg PO DAILY 01/03/18 01/26/18 RX: Spironolactone [Aldactone] 50 mg PO BID 01/03/18 01/26/18 RX: Zolpidem [Ambien] 5 mg PO HS PRN 01/03/18 01/26/18 RX: metOLazone [Zaroxolyn] 2.5 mg PO DAILY 01/03/18 01/26/18 traMADol 50 mg PO Q8 01/03/18 01/26/18 Review of Systems - Physician Review All systems were reviewed & negative as marked: Yes - Review of Systems Constitutional: Normal. absent: Fevers ENT: Normal. absent: Sore Throat, Rhinorrhea Respiratory: SOB, Cough. absent: Wheezing Cardiovascular: Normal. absent: Chest Pain, Palpitations Gastrointestinal: Normal. absent: Abdominal Pain, Constipation, Diarrhea, Nausea, Vomiting Musculoskeletal: Normal Skin: Normal. absent: Rash Neurological: Headache. absent: Dizziness Endocrine: Normal. absent: Diaphoresis Hemo/Lymphatic: Normal. absent: Adenopathy Psychiatric: Normal. absent: Anxiety <Brad Barros - Last Filed: 03/20/18 16:29> Physical Exam Vital Signs Reviewed: Yes Vital Signs Temp Pulse Resp BP Pulse Ox 03/20/18 14:33 97.9 F 52 L 18 133/56 L 92 L Temperature: Afebrile Blood Pressure: Normal Pulse: Bradycardic Respiratory Rate: Normal Appearance: Positive for: Comfortable, Ill-Appearing (chronic) Pain Distress: None Mental Status: Positive for: Alert and Oriented X 3 - Systems Exam Head: Present: Atraumatic, Normocephalic Extroacular Muscles: Present: EOMI Conjunctiva: Present: Normal Mouth: Present: Moist Mucous Membranes Pharnyx: Present: Normal. No: ERYTHEMA, EXUDATE Nose (External): Present: Atraumatic Nose (Internal): Present: No Active Bleeding, Moist Neck: Present: Normal Range of Motion. No: Meningeal Signs, JVD, Lymphadenopathy Respiratory/Chest: Present: Rales (bases b/l). No: Respiratory Distress, Accessory Muscle Use, Wheezes, Rhonchi Cardiovascular: Present: Peripheal Pulses Present, Bradycardic. No: Murmurs Abdomen: Present: Tenderness (suprapubic tender to palpation), Scars (prior willi-colectomy scar), Other (multiple spots of ecchymosis from recent anti-coag injections from [facility]). No: Distention, Peritoneal Signs, Rebound, Guarding, McBurney's Point Tender, Rovsing's Sign Present Upper Extremity: Present: Normal Inspection, NORMAL PULSES. No: Cyanosis, Edema Lower Extremity: Present: Normal Inspection, NORMAL PULSES. No: Edema, CALF TENDERNESS Neurological: Present: GCS=15, Speech Normal, Motor Func Grossly Intact Skin: Present: Warm, Dry, Normal Color. No: Rashes Lymphatic: No: Cervical Adenopathy Psychiatric: Present: Alert, Oriented x 3 <Brad Barros - Last Filed: 03/20/18 16:29> Vital Signs Temp Pulse Resp BP Pulse Ox 03/20/18 14:52 97.9 F 52 L 18 133/56 L 92 L 03/20/18 14:33 97.9 F 52 L 18 133/56 L 92 L <Ed José - Last Filed: 03/20/18 19:51> Medical Decision Making ED Course and Treatment: 03/20/18 15:05 Patient is a 82 year old female with a past medical history of Cirrhosis, anemia, CHF, HTN, DM, CAD with stent, CKD and COPD presenting to the emergency room with a complaint of shortness of breath/difficulty breathing. EKG - junctional rhythm at 55bpm, normal axis, flipped t waves in leads II, III and aVF. no seen on prior EKGs - repeat EKG shows similar flipped t waves in leads II, III and aVF. Labs and CXR Will re-assess 03/20/18 16:29 CXR is unchanged with no acute disease. Patient was found to be severely hyponatremic at 111. Patient had recent admission for hyponatremia in 01/2018. At that time, it was believed to be 2/2 to volume depletion vs lasix use. Serum Osmol, Urine Osmol and Urine Sodium ordered. Patient will need sodium to be corrected slowly. ICU contacted. ICU team will come down and eval patient Dr. Morataya contacted and cased discussed in detail. Dr. Morataya has accepted patient for admission to the ICU for hyponatremia. 03/20/18 16:56 ICU team present in ED. Cased discussed in detail with Dr. Colbert. Patient accepted for admission to the ICU for hyponatremia. Requested NS started at 60mL/hr. Order placed. Admit order placed. Re-evaluation Time: 16:29 - RAD Interpretation Radiology Orders: 03/20/18 14:46 CHEST PORTABLE [RAD] Stat <Brad Barros - Last Filed: 03/20/18 16:29> ED Course and Treatment: 03/20/18 15:42 82 year old female presents to the Emergency Department complaining of shortness of breath. In agreement with resident note, which includes further HPI details. Patient was seen and evaluated with resident, came up with plan and treatment together. 03/20/18 19:50 pt with hyponatremia, ?etiology. ivf iniated, accepted icu. - RAD Interpretation Radiology Orders: 03/20/18 14:46 CHEST PORTABLE [RAD] Stat <Ed José - Last Filed: 03/20/18 19:51> - PA / SYSTEM ENGINEER / Resident Statement MD/DO has reviewed & agrees with the documentation as recorded. MD/DO has examined the patient and agrees with the treatment plan. - Scribe Statement The provider has reviewed the documentation as recorded by the Scribe Concepción Dumont. All medical record entries made by the Scribe were at my direction and personally dictated by me. I have reviewed the chart and agree that the record accurately reflects my personal performance of the history, physical exam, medical decision making, and the department course for this patient. I have also personally directed, reviewed, and agree with the discharge instructions and disposition. <Ed José - Last Filed: 03/20/18 19:51> Disposition/Present on Arrival - Present on Arrival Any Indicators Present on Arrival: No History of DVT/PE: No History of Uncontrolled Diabetes: Yes Urinary Catheter: No History of Decub. Ulcer: No History Surgical Site Infection Following: None - Disposition Have Diagnosis and Disposition been Completed?: Yes Disposition Time: 16:50 Patient Plan: Admission <Brad Barros - Last Filed: 03/20/18 16:29> <Ed José - Last Filed: 03/20/18 19:51> - Disposition Diagnosis: Hyponatremia Disposition: HOSPITALIZED Patient Problems: Current Active Problems Problem Status Onset Hyponatremia Acute Condition: CRITICAL
[2018-03-20 15:43] LABS: BASO # 0.02 K/mm3 (0.0-2.0); BASO % 0.2 % (0.0-3.0); EOS # 0.1 (0.0-0.7); EOS % 0.7 % (1.5-5.0); GRAN # 8.24 (1.4-6.5); GRAN % 67.7 % (50.0-68.0); HEMOGLOBIN 10.6 g/dL (12.0-16.0); LYMPH # 2.2 (1.2-3.4); LYMPH % 17.7 % (22.0-35.0); MEAN CELL VOLUME 87.6 fl (80.0-105.0); MEAN CORPUSCULAR HEMOGLOBIN 32.1 pg (25.0-35.0); MEAN CORPUSCULAR HGB CONC 36.7 g/dl (31.0-37.0); MEAN PLATELET VOLUME 9.8 fl (7.0-11.0); MONO # 1.7 (0.1-0.6); MONO % 13.7 % (1.0-6.0); RBC 3.3 10^6/uL (3.5-6.1); RED CELL DISTRIBUTION WIDTH 14.9 % (11.5-14.5); WHITE BLOOD COUNT 12.2 10^3/ul (4.5-11.0)
[2018-03-20 15:55] LABS: INR 1.18; PARTIAL THROMBOPLASTIN TIME 31.1 Seconds (25.1-36.5); PROTHROMBIN TIME 13.5 SECONDS (9.4-12.5)
--- NOTE | 2018-03-20 15:57 | RAD ---
Date of service: 03/20/2018 HISTORY: Shortness of breath COMPARISON: 01/26/2018 FINDINGS: LUNGS: No discrete infiltrates. Pulmonary vascular congestion a new finding. PLEURA: No significant pleural effusion identified, no pneumothorax apparent. CARDIOVASCULAR: Cardiomegaly/mild CHF. OSSEOUS STRUCTURES: No significant abnormalities. VISUALIZED UPPER ABDOMEN: Normal. OTHER FINDINGS: None. IMPRESSION: Cardiomegaly, mild presumed acute CHF
[2018-03-20 16:05] LABS: ALB/GLOB RATIO 1.3 (1.1-1.8); ALBUMIN 3.7 g/dL (3.0-4.8); CALCIUM 8.7 mg/dL (8.4-10.5); TROPONIN I 0.05 ng/mL
--- NOTE | 2018-03-20 16:58 | CP.PCM.CON ---
<Carlos Holloway - Last Filed: 03/20/18 17:34> History of Present Illness - History of Present Illness History of Present Illness: Carlos Holloway DO, PGY-1 ICU Consult Note for Dr. Colbert Ms. Winters is an 82 year old female with PMH of CKD, cirrhosis, CHF, HTN, DM2, CAD (s/p stents), COPD, and GI bleed presents to ED with flu-like symptoms of fever, chills, diffuse body aches, and productive cough. She states she has had these for the past day. She also admits to headache and nausea. She denies chest pain, SOB, or vomiting. In ED, she was found to have sodium of 111. She had a prior ICU admission for similar episode of hyponatremia in January 2018. Patient feels acutely ill and so was not able to engage in long conversation. Prior records were reviewed in obtaining history. PMH: CKD, cirrhosis, CHF, HTN, DM2, CAD (s/p stents), COPD, and GI bleed (2/2 AVM) PSH: R hemicolectomy, PCI All: shellfish Soc Hx: no tobacco, EtOH, drug use, [facility] Fam Hx: HTN, DM Review of Systems - Constitutional Constitutional: Chills, Fever - Cardiovascular Cardiovascular: absent: Chest Pain, Dyspnea - Respiratory Respiratory: Cough, Pain with Coughing - Gastrointestinal Gastrointestinal: Abdominal Pain, Nausea. absent: Vomiting Past Patient History - Infectious Disease Hx of Infectious Diseases: None - Tetanus Immunizations Tetanus Immunization: Unknown - Past Social History Smoking Status: Never Smoked - CARDIAC Hx Cardiac Disorders: Yes Hx Congestive Heart Failure: Yes Hx Hypertension: Yes - PULMONARY Hx Chronic Obstructive Pulmonary Disease (COPD): Yes - NEUROLOGICAL Hx Neurological Disorder: Yes - HEENT Hx HEENT Problems: No - RENAL Hx Renal Failure: Yes - ENDOCRINE/METABOLIC Hx Diabetes Mellitus Type 2: Yes - HEMATOLOGICAL/ONCOLOGICAL Hx Blood Disorders: Yes Hx Anemia: Yes - INTEGUMENTARY Hx Dermatological Problems: Yes - MUSCULOSKELETAL/RHEUMATOLOGICAL Hx Arthritis: Yes - GASTROINTESTINAL Hx Gastrointestinal Disorders: Yes Hx Gastroesophageal Reflux: Yes - GENITOURINARY/GYNECOLOGICAL Hx Genitourinary Disorders: Yes - PSYCHIATRIC Hx Psychophysiologic Disorder: Yes Hx Anxiety: Yes Hx Substance Use: No - SURGICAL HISTORY Hx Appendectomy: Yes Hx Coronary Stent: Yes - ANESTHESIA Hx Anesthesia: Yes Hx Anesthesia Reactions: No Hx Malignant Hyperthermia: No Meds Allergies/Adverse Reactions: Allergies Allergy/AdvReac Type Severity Reaction Status Date / Time shellfish derived Allergy RASH Verified 03/20/18 17:22 - Medications Medications: Current Medications Sodium Chloride (Sodium Chloride 0.9%) 1,000 mls @ 60 mls/hr IV .[id number] JAK Physical Exam - Constitutional Appears: Other (awake, able to converse but fatigued and acutely ill-appearing) - Head Exam Head Exam: ATRAUMATIC, NORMAL INSPECTION - ENT Exam ENT Exam: Mucous Membranes Dry - Neck Exam Neck exam: Positive for: Full Rom, Normal Inspection - Respiratory Exam Respiratory Exam: Clear to Auscultation Bilateral, NORMAL BREATHING PATTERN. absent: Accessory Muscle Use, Rales, Rhonchi, Wheezes - Cardiovascular Exam Cardiovascular Exam: REGULAR RHYTHM, RRR, +S1, +S2. absent: Diastolic murmur, Gallop, Rubs, Systolic Murmur - GI/Abdominal Exam GI & Abdominal Exam: Soft. absent: Guarding, Mass, Tenderness - Extremities Exam Extremities exam: Positive for: normal inspection. Negative for: pedal edema - Neurological Exam Neurological exam: Alert, Oriented x3 - Psychiatric Exam Psychiatric exam: Normal Affect, Normal Mood Results - Vital Signs Recent Vital Signs: Last Vital Signs Temp 97.9 F 03/20/18 14:52 Pulse 56 L 03/20/18 16:54 Resp 16 03/20/18 16:54 BP 130/57 L 03/20/18 16:54 Pulse Ox 98 03/20/18 16:54 - Labs Result Diagrams: 03/20/18 15:30 03/20/18 15:30 Labs: Laboratory Results - last 24 hr 03/20/18 03/20/18 03/20/18 15:30 15:30 15:30 WBC 12.2 H D RBC 3.30 L Hgb 10.6 L D Hct 28.9 L MCV 87.6 MCH 32.1 MCHC 36.7 RDW 14.9 H Plt Count 145 MPV 9.8 Gran % 67.7 Lymph % (Auto) 17.7 L Y[place] % (Auto) 13.7 H Eos % (Auto) 0.7 L Baso % (Auto) 0.2 Gran # 8.24 H Lymph # (Auto) 2.2 Y[place] # (Auto) 1.7 H Eos # (Auto) 0.1 Baso # (Auto) 0.02 PT 13.5 H INR 1.18 APTT 31.1 Sodium 111 L* Potassium 5.3 H Chloride 79 L Carbon Dioxide 19 L Anion Gap 18 BUN 58 H Creatinine 1.6 H Est GFR ( Amer) 37 Est GFR (Non-Af Amer) 31 Random Glucose 214 H Calcium 8.7 Magnesium 2.1 Total Bilirubin 1.1 AST 42 H ALT 33 Alkaline Phosphatase 78 Lactate Dehydrogenase 612 Total Creatine Kinase 78 Troponin I 0.05 D NT-Pro-B Natriuret Pep 8630 H Total Protein 6.6 Albumin 3.7 Globulin 2.9 Albumin/Globulin Ratio 1.3 Assessment & Plan - Assessment and Plan (Free Text) Assessment: 82 yo F with PMH of CKD, cirrhosis, CHF, HTN, DM2, CAD (s/p stents), COPD, and GI bleed presents to ED with flu-like symptoms found to have Na of 111. She is admitted to ICU for management of severe hyponatremia. Plan: Neuro: -A/o x 3, no FND, moving extremities past midline -Monitor neuro status -Reorient patient as necessary Cardio: -RRR, normotensive, no signs of HD compromise -Maintain MAP>65 -Will monitor closely in MICU Pulm: -Patient has flu-like symptoms of fever, chills, body aches but is in no acute respiratory distress -Patient SpO2 > 90% on 2L NC, maintain -Additional O2 NC PRN -Monitor respiratory status closely in MICU GI: -Has nausea associated with flu-like symptoms -Zofran PRN nausea, diet as tolerated -Protonix for GI PPX /Nephro: -Severe hyponatremia with Na of 111 identified in ED -Had similar episode in 01/2018 -Likely 2/2 dehydration vs flu-like illness vs ESRD component -Start NS @ 60 cc/hr, monitor BMP Q4h overnight -BUN/Cr c/w ESRD -Replete other electrolytes as needed -Maintain euvolemia Endocrinology: -Maintain euglycemia -ISS Heme/Onc: -H/H stable at 10.6/28.9 -No signs of HD compromise. -Continue monitoring H/H ID: -Arrived in ED with flu-like symptoms -Rapid flu antigen testing pending -Tamiflu if positive -F/u blood, urine, sputum cx, procal DVT/GI PPX: Sc heparin and protonix Full Code Monitor in MICU Case and plan reviewed and discussed with my attending Dr. Filemon Holloway, IM Resident PGY-1 <Antony Colbert - Last Filed: 03/20/18 17:53> Meds - Medications Medications: Current Medications Heparin Sodium (Porcine) (Heparin) 5,000 units SC Q8 JAK; Protocol Sodium Chloride (Sodium Chloride 0.9%) 1,000 mls @ 60 mls/hr IV .[id number] JAK Last Admin: 03/20/18 17:01 Dose: 60 mls/hr Insulin Human Regular (Humulin R Med) 0 units SC ACHS JAK; Protocol Ondansetron HCl (Zofran Inj) 4 mg IVP Q6H PRN PRN Reason: Nausea/Vomiting Pantoprazole Sodium (Protonix Inj) 40 mg IVP DAILY JAK Results - Vital Signs Recent Vital Signs: Last Vital Signs Temp 97.9 F 03/20/18 14:52 Pulse 56 L 03/20/18 16:54 Resp 16 03/20/18 16:54 BP 130/57 L 03/20/18 16:54 Pulse Ox 98 03/20/18 16:54 - Labs Result Diagrams: 03/20/18 15:30 03/20/18 15:30 Labs: Laboratory Results - last 24 hr 03/20/18 03/20/18 03/20/18 15:00 15:30 15:30 WBC 12.2 H D RBC 3.30 L Hgb 10.6 L D Hct 28.9 L MCV 87.6 MCH 32.1 MCHC 36.7 RDW 14.9 H Plt Count 145 MPV 9.8 Gran % 67.7 Lymph % (Auto) 17.7 L [place] % (Auto) 13.7 H Eos % (Auto) 0.7 L Baso % (Auto) 0.2 Gran # 8.24 H Lymph # (Auto) 2.2 Y[place] # (Auto) 1.7 H Eos # (Auto) 0.1 Baso # (Auto) 0.02 PT 13.5 H INR 1.18 APTT 31.1 Sodium Potassium Chloride Carbon Dioxide Anion Gap BUN Creatinine Est GFR ( Amer) Est GFR (Non-Af Amer) Random Glucose Calcium Magnesium Total Bilirubin AST ALT Alkaline Phosphatase Lactate Dehydrogenase Total Creatine Kinase Troponin I NT-Pro-B Natriuret Pep Total Protein Albumin Globulin Albumin/Globulin Ratio Urine Color Light yellow Urine Appearance Sl cloudy Urine pH 6.0 Ur Specific Cameron 1.015 Urine Protein Trace H Urine Glucose (UA) Negative Urine Ketones Negative Urine Blood Moderate H Urine Nitrate Negative Urine Bilirubin Negative Urine Urobilinogen 0.2 Ur Leukocyte Esterase Large H Urine RBC 5 - 10 Urine WBC 25 - 30 Ur Epithelial Cells 1 - 3 Urine Bacteria Mod 03/20/18 15:30 WBC RBC Hgb Hct MCV MCH MCHC RDW Plt Count MPV Gran % Lymph % (Auto) Yolo % (Auto) Eos % (Auto) Baso % (Auto) Gran # Lymph # (Auto) Y[place] # (Auto) Eos # (Auto) Baso # (Auto) PT INR APTT Sodium 111 L* Potassium 5.3 H Chloride 79 L Carbon Dioxide 19 L Anion Gap 18 BUN 58 H Creatinine 1.6 H Est GFR ( Amer) 37 Est GFR (Non-Af Amer) 31 Random Glucose 214 H Calcium 8.7 Magnesium 2.1 Total Bilirubin 1.1 AST 42 H ALT 33 Alkaline Phosphatase 78 Lactate Dehydrogenase 612 Total Creatine Kinase 78 Troponin I 0.05 D NT-Pro-B Natriuret Pep 8630 H Total Protein 6.6 Albumin 3.7 Globulin 2.9 Albumin/Globulin Ratio 1.3 Urine Color Urine Appearance Urine pH Ur Specific Cameron Urine Protein Urine Glucose (UA) Urine Ketones Urine Blood Urine Nitrate Urine Bilirubin Urine Urobilinogen Ur Leukocyte Esterase Urine RBC Urine WBC Ur Epithelial Cells Urine Bacteria Assessment & Plan - Assessment and Plan (Free Text) Plan: Patient seen and examined, with resident, agree with note with following additions/exceptions: Patient is 82yo female with PMHx of PNA, CKD, CHF, presented with malaise, fatigue, and hyponatremia, Na 111. Patient currently afebrile, HD stable, comfortable in NAD, doing well, AAOx2 Labs, imaging, chart reviewed Renal consulted Patient clinically dry on exam Severe Hyponatremia CHF CKD Malaise Recommend: - supp o2 as needed, duonebs PRN, IS - Panculture, UCx, BCx, check Procal - Check BMP q6hr, goal Na correction 6-8meq/24hr - Check UA, Ulytes, TSH, Uric Acid - trial of IVF, NS @ 60cc/hr - Follow up renal - Hold Lasix - GI ppx - DVT ppx - Admit to MICU Clarify code status
[2018-03-20] MEDS ORDERED: Sodium Chloride 0.9% 1,000 ML IV SCH ×2 (17:00→20:15)
[2018-03-20 17:24] LABS: URINE BILIRUBIN NEGATIVE (NEGATIVE); URINE BLOOD MODERATE (NEGATIVE); URINE GLUCOSE (UA) NEGATIVE (NEGATIVE); URINE LEUKOCYTE ESTERASE LARGE Leu/uL (NEGATIVE); URINE PROTEIN TRACE mg/dL (<30 mg/dL); URINE UROBILINOGEN 0.2 E.U./dL (<1 E.U./dL)
[2018-03-20 17:41] LABS: URINE APPEARANCE SL CLOUDY (CLEAR); URINE COLOR LIGHT YELLOW (YELLOW)
[2018-03-20 17:43] LABS: URINE BACTERIA MOD (NEG); URINE WBC 25 - 30 /hpf (0-6)
[2018-03-20] MEDS ORDERED: MAGNESIUM HYDROXIDE PO PRN (18:31)
[2018-03-20] MEDS ORDERED: ALUMINUM HYDROXIDE PO PRN (18:31)
[2018-03-20] MEDS ORDERED: Alum-Mag Hydrox-Simethicone Susp (30 mL) PO PRN (18:38)
[2018-03-20] MEDS ORDERED: cefTRIAXone 1 gm 1 GM/100 ML BAG IVPB STA (18:48)
[2018-03-20 19:15] LABS: CALCIUM 8.5 mg/dL (8.4-10.5)
[2018-03-20 20:04] LABS: OSMOLALITY,URINE 321 mosm/kg (300-1000)
[2018-03-20] MEDS: Levalbuterol 0.63 MG/3 ML Inhal Soln UD IH SCH (20:27)
[2018-03-20] MEDS: Sodium Chloride 3% 500 ML IV SCH (21:21)
[2018-03-20 21:26] VITALS: BMI 21.2
[2018-03-20] MEDS ORDERED: Influenza Vaccine 60 mcg/0.5 mL SYR (4YR UP) IM ONE (21:26)
[2018-03-20] MEDS ORDERED: Pneumococcal 23-Valent Vaccine IM ONE (21:26)
[2018-03-20] MEDS: Insulin Reg-MEDIUM-Coverage SC SCH (23:40)
[2018-03-20] MEDS: Insulin Reg-HIGH-Coverage SC SCH (23:40)
[2018-03-21 01:28] LABS: CALCIUM 8.5 mg/dL (8.4-10.5); URIC ACID 8.1 mg/dL (2.5-6.2)
[2018-03-21] MEDS ORDERED: Sodium Chloride 0.9% 1,000 ML IV SCH ×2 (02:00→09:06)
[2018-03-21 03:44] LABS: BASO # 0.02 K/mm3 (0.0-2.0); BASO % 0.2 % (0.0-3.0); EOS % 0.2 % (1.5-5.0); GRAN # 7.76 (1.4-6.5); GRAN % 71.4 % (50.0-68.0); HEMOGLOBIN 10.8 g/dL (12.0-16.0); LYMPH # 1.5 (1.2-3.4); LYMPH % 13.9 % (22.0-35.0); MEAN CELL VOLUME 88.7 fl (80.0-105.0); MEAN CORPUSCULAR HEMOGLOBIN 32.1 pg (25.0-35.0); MEAN CORPUSCULAR HGB CONC 36.2 g/dl (31.0-37.0); MEAN PLATELET VOLUME 9.6 fl (7.0-11.0); MONO # 1.6 (0.1-0.6); MONO % 14.3 % (1.0-6.0); RBC 3.36 10^6/uL (3.5-6.1); RED CELL DISTRIBUTION WIDTH 14.9 % (11.5-14.5); WHITE BLOOD COUNT 10.9 10^3/ul (4.5-11.0)
[2018-03-21 04:42] LABS: ALB/GLOB RATIO 1.3 (1.1-1.8); ALBUMIN 3.8 g/dL (3.0-4.8); CALCIUM 8.6 mg/dL (8.4-10.5)
--- NOTE | 2018-03-21 06:54 | HP ---
HISTORY OF PRESENT ILLNESS: Patient is 82 years old, known to me from multiple previous admissions, recently discharged from [facility]. According to , she has been having generalized weakness, has cough and congestion with low-grade fever. Complains of generalized body aches. Complains of having headache and nausea. No history of chest pain. Complains of decreased appetite. PAST MEDICAL HISTORY: Significant for: 1. Cardiac cirrhosis. 2. Congestive heart failure. 3. Hypertension. 4. Insulin-dependent diabetes. 5. Coronary artery disease status post RCA angioplasty. 6. History of COPD. 7. History of Dieulafoy lesion in the stomach and for that she has coil placed. 8. Chronic kidney disease. 9. Intermittent hyponatremia. 10. Status post right hemicolectomy. ALLERGIES: SHE IS ALLERGIC TO SHELLFISH. SOCIAL HISTORY: She used to smoke in the remote past, but not lately. No alcohol use. MEDICATION AT HOME: She is on Zaroxolyn 2.5 daily, zolpidem 5 mg at bedtime, tramadol 50 mg every 8 hours, Aldactone 50 mg twice a day, Protonix 40 daily, Zofran as needed, Xopenex, isosorbide, insulin 15 units 75/25 twice a day, Lasix 40 mg daily, amlodipine 10 mg daily, and Xanax as needed. REVIEW OF SYSTEMS: Patient is sleepy, but arousable. PHYSICAL EXAMINATION: VITAL SIGNS: She is afebrile, pulse 54, respirations 18, and blood pressure 142/57. LUNGS: Bilateral fair airflow. Few expiratory rhonchi. HEART: S1 and S2 audible. ABDOMEN: Soft and nontender. No rebound. No guarding. NEUROLOGIC: She is awake. She is sleepy, but arousable. EXTREMITIES: Bilateral legs, plus 1 edema. LABORATORY DATA: WBC 12.2, hemoglobin 10.6, hematocrit 28.9, and platelets 145. PT 13.5 and INR 1.18. Chemistry: Sodium 111, potassium 5.3, chloride 79, CO2 of 19, BUN 58, creatinine 1.6, and blood sugar of 214. AST 42. BNP 8630. Urine shows moderate blood and large leukocytes. Influenza test is negative. ASSESSMENT: 1. Symptomatic hyponatremia. 2. Asthmatic bronchitis. 3. History of chronic obstructive pulmonary disease. 4. Congestive heart failure. 5. Hypertension. 6. Hyponatremia. 6. Cardiac cirrhosis. 7. Insulin dependent diabetes. PLAN: Patient is currently on aspirin 81 daily. We will start her on Rocephin and we will start her on hypotonic saline. Get nephrology evaluation. Monitor electrolytes closely. We will follow up patient in a.m. Harsh Morataya MD
[2018-03-21] MEDS: Levalbuterol 0.63 MG/3 ML Inhal Soln UD IH SCH ×3 (07:08→20:10)
[2018-03-21] MEDS: Insulin Reg-MEDIUM-Coverage SC SCH (07:30)
[2018-03-21] MEDS: Insulin Reg-HIGH-Coverage SC SCH ×4 (07:30→22:02)
[2018-03-21 08:16] LABS: CALCIUM 8.5 mg/dL (8.4-10.5)
[2018-03-21] MEDS: cefTRIAXone 1 gm 1 GM/100 ML BAG IVPB SCH (09:47)
--- NOTE | 2018-03-21 10:01 | CP.CCUPN ---
<Carlos Holloway - Last Filed: 03/21/18 11:33> CCU Subjective - Physician Review Subjective (Free Text): Carlos Holloway DO, PGY-1 ICU Progress Note for Dr. Pedro Barnett Patient was seen and examined at bedside this AM. She reports feeling a little better after receiving fluids overnight. She still has intermittent chills and cough but it is improving. She denies peripheral numbness/tingling, tremors, or other seizure-like movements. CCU Objective - Vital Signs / Intake & Output Vital Signs (Last 4 hours): Vital Signs Pulse BP 03/21/18 09:46 149/58 L 03/21/18 06:00 54 L Intake and Output (Last 8hrs): Intake & Output 03/20/18 03/21/18 03/21/18 22:59 06:59 14:59 Intake Total 720 Balance 720 Weight 116 lb 116 lb Intake: IV 720 Left Antecubital 720 Other: Voiding Method Bedside Commode - Physical Exam Head: Positive for: Atraumatic, Normocephalic Pupils: Positive for: PERRL Extroacular Muscles: Positive for: EOMI Conjunctiva: Positive for: Normal Mouth: Positive for: Moist Mucous Membranes Pharnyx: Positive for: Normal. Negative for: ERYTHEMA, EXUDATE Neck: Positive for: Normal Range of Motion. Negative for: JVD Respiratory/Chest: Positive for: Rales (faint rales on bases b/l). Negative for: Respiratory Distress, Accessory Muscle Use, Wheezes, Rhonchi Cardiovascular: Positive for: Bradycardic. Negative for: Murmurs, Rub, Gallop Abdomen: Positive for: Tenderness (suprapubic tenderness to palpation), Scars (surgical scar c/w prior hemicolectomy). Negative for: Distention, Rebound, Rovsing's Sign Present Upper Extremity: Positive for: Normal Inspection, NORMAL PULSES. Negative for: Cyanosis, Edema Lower Extremity: Positive for: Normal Inspection, NORMAL PULSES. Negative for: Edema Neurological: Positive for: GCS=15, Speech Normal, Motor Func Grossly Intact Skin: Positive for: Warm, Dry, Normal Color. Negative for: Rashes Lymphatic: Negative for: Cervical Adenopathy Psychiatric: Positive for: Alert, Oriented x 3 - Medications Active Medications: Active Medications Generic Name Dose Route Start Last Admin Trade Name Freq PRN Reason Stop Dose Admin Acetaminophen 650 mg 03/20/18 18:27 Tylenol 325mg Tab PO Q6H PRN Pain, moderate (4-7) Al Hydrox/Mg Hydrox/Simethicone 5 ml 03/20/18 18:38 Maalox Plus 30 Ml PO Q4H PRN Heartburn Alprazolam 0.25 mg 03/20/18 18:31 03/20/18 20:10 Xanax PO 03/27/18 18:32 0.25 mg Q12H PRN Administration Anxiety Protocol Amlodipine Besylate 10 mg 03/21/18 10:00 03/21/18 09:46 Norvasc PO 10 mg DAILY JAK Administration Aspirin 81 mg 03/21/18 10:00 03/21/18 09:46 Aspirin Chewable PO 81 mg DAILY JAK Administration Heparin Sodium (Porcine) 5,000 units 03/20/18 22:00 03/21/18 05:23 Heparin SC 5,000 units Q8 JAK Administration Protocol Ceftriaxone Sodium 1 gm in 100 mls @ 100 mls/hr 03/21/18 10:00 03/21/18 09:47 Rocephin 1 Gram Ivpb IVPB 100 mls/hr DAILY JAK Administration Protocol Sodium Chloride 500 mls @ 20 mls/hr 03/20/18 19:15 03/20/18 21:21 Hypertonic Saline 3% IV Not Given .Q24H JAK Sodium Chloride 1,000 mls @ 100 mls/hr 03/21/18 09:06 03/21/18 09:10 Sodium Chloride 0.9% IV 100 mls/hr .Q10H JAK Administration Insulin Human Regular 0 units 03/20/18 22:00 03/21/18 07:30 Humulin R Med SC Not Given ACHS JAK Protocol Insulin Human Regular 0 units 03/20/18 22:00 03/21/18 07:30 Humulin R High SC Not Given ACHS JAK Protocol Levalbuterol HCl 0.63 mg 03/20/18 20:00 03/21/18 07:08 Xopenex IH 0.63 mg TIDRESP JAK Administration Ondansetron HCl 4 mg 03/20/18 17:17 Zofran Inj IVP Q6H PRN Nausea/Vomiting Pantoprazole Sodium 40 mg 03/21/18 10:00 03/21/18 09:46 Protonix Inj IVP 40 mg DAILY JAK Administration - Patient Studies Lab Studies: Lab Studies 03/21/18 03/21/18 03/21/18 Range/Units 07:30 03:35 03:35 WBC 10.9 (4.5-11.0) 10^3/ul RBC 3.36 L (3.5-6.1) 10^6/uL Hgb 10.8 L (12.0-16.0) g/dL Hct 29.8 L (36.0-48.0) % MCV 88.7 (80.0-105.0) fl MCH 32.1 (25.0-35.0) pg MCHC 36.2 (31.0-37.0) g/dl RDW 14.9 H (11.5-14.5) % Plt Count 140 (120.0-450.0) 10^3/uL MPV 9.6 (7.0-11.0) fl Gran % 71.4 H (50.0-68.0) % Lymph % (Auto) 13.9 L (22.0-35.0) % [place] % (Auto) 14.3 H (1.0-6.0) % Eos % (Auto) 0.2 L (1.5-5.0) % Baso % (Auto) 0.2 (0.0-3.0) % Gran # 7.76 H (1.4-6.5) Lymph # (Auto) 1.5 (1.2-3.4) [place] # (Auto) 1.6 H (0.1-0.6) Eos # (Auto) 0.0 (0.0-0.7) Baso # (Auto) 0.02 (0.0-2.0) K/mm3 PT (9.4-12.5) SECONDS INR APTT (25.1-36.5) Seconds Sodium 115 L* 115 L* (132-148) mmol/L Potassium 4.8 4.8 (3.6-5.0) mmol/L Chloride 85 L 82 L (98-107) mmol/L Carbon Dioxide 18 L 20 L (21-33) mmol/L Anion Gap 18 18 (10-20) BUN 54 H 54 H (7-21) mg/dL Creatinine 1.7 H 1.7 H (0.7-1.2) mg/dl Est GFR ( Amer) 35 35 Est GFR (Non-Af Amer) 29 29 POC Glucose (mg/dL) (65-110) mg/dL Random Glucose 171 H 185 H (70-110) mg/dL Serum Osmolality (272-300) mosm/kg Uric Acid (2.5-6.2) mg/dL Calcium 8.5 8.6 (8.4-10.5) mg/dL Phosphorus 4.7 H (2.5-4.5) mg/dL Magnesium 2.2 (1.7-2.2) mg/dL Total Bilirubin 1.0 (0.2-1.3) mg/dL AST 30 (14-36) U/L ALT 33 (7-56) U/L Alkaline Phosphatase 73 (38-126) U/L Lactate Dehydrogenase (333-699) U/L Total Creatine Kinase (35-230) U/L Troponin I ng/mL NT-Pro-B Natriuret Pep (0-450) pg/mL Total Protein 6.8 (5.8-8.3) g/dL Albumin 3.8 (3.0-4.8) g/dL Globulin 3.0 gm/dL Albumin/Globulin Ratio 1.3 (1.1-1.8) Procalcitonin (0.19-0.49) NG/ML Urine Color (YELLOW) Urine Appearance (CLEAR) Urine pH (4.7-8.0) Ur Specific [place] (1.005-1.035) Urine Protein (<30 mg/dL) mg/dL Urine Glucose (UA) (NEGATIVE) mg/dL Urine Ketones (NEGATIVE) mg/dL Urine Blood (NEGATIVE) Urine Nitrate (NEGATIVE) Urine Bilirubin (NEGATIVE) Urine Urobilinogen (<1 E.U./dL) E.U./dL Ur Leukocyte Esterase (NEGATIVE) Carmen/uL Urine RBC (0-2) /hpf Urine WBC (0-6) /hpf Ur Epithelial Cells (0-5) /hpf Urine Bacteria (NEG) Urine Osmolality (300-1000) mosm/kg Ur Random Sodium meq/L Influenza Typ A,B (EIA) (NEGATIVE) 03/20/18 03/20/18 03/20/18 Range/Units 23:20 22:37 18:55 WBC (4.5-11.0) 10^3/ul RBC (3.5-6.1) 10^6/uL Hgb (12.0-16.0) g/dL Hct (36.0-48.0) % MCV (80.0-105.0) fl MCH (25.0-35.0) pg MCHC (31.0-37.0) g/dl RDW (11.5-14.5) % Plt Count (120.0-450.0) 10^3/uL MPV (7.0-11.0) fl Gran % (50.0-68.0) % Lymph % (Auto) (22.0-35.0) % [place] % (Auto) (1.0-6.0) % Eos % (Auto) (1.5-5.0) % Baso % (Auto) (0.0-3.0) % Gran # (1.4-6.5) Lymph # (Auto) (1.2-3.4) [place] # (Auto) (0.1-0.6) Eos # (Auto) (0.0-0.7) Baso # (Auto) (0.0-2.0) K/mm3 PT (9.4-12.5) SECONDS INR APTT (25.1-36.5) Seconds Sodium 115 L* (132-148) mmol/L Potassium 4.5 (3.6-5.0) mmol/L Chloride 82 L (98-107) mmol/L Carbon Dioxide 20 L (21-33) mmol/L Anion Gap 18 (10-20) BUN 55 H (7-21) mg/dL Creatinine 1.7 H (0.7-1.2) mg/dl Est GFR ( Amer) 35 Est GFR (Non-Af Amer) 29 POC Glucose (mg/dL) 159 H (65-110) mg/dL Random Glucose 167 H (70-110) mg/dL Serum Osmolality (272-300) mosm/kg Uric Acid 8.1 H (2.5-6.2) mg/dL Calcium 8.5 (8.4-10.5) mg/dL Phosphorus (2.5-4.5) mg/dL Magnesium (1.7-2.2) mg/dL Total Bilirubin (0.2-1.3) mg/dL AST (14-36) U/L ALT (7-56) U/L Alkaline Phosphatase (38-126) U/L Lactate Dehydrogenase (333-699) U/L Total Creatine Kinase (35-230) U/L Troponin I ng/mL NT-Pro-B Natriuret Pep (0-450) pg/mL Total Protein (5.8-8.3) g/dL Albumin (3.0-4.8) g/dL Globulin gm/dL Albumin/Globulin Ratio (1.1-1.8) Procalcitonin (0.19-0.49) NG/ML Urine Color (YELLOW) Urine Appearance (CLEAR) Urine pH (4.7-8.0) Ur Specific [place] (1.005-1.035) Urine Protein (<30 mg/dL) mg/dL Urine Glucose (UA) (NEGATIVE) mg/dL Urine Ketones (NEGATIVE) mg/dL Urine Blood (NEGATIVE) Urine Nitrate (NEGATIVE) Urine Bilirubin (NEGATIVE) Urine Urobilinogen (<1 E.U./dL) E.U./dL Ur Leukocyte Esterase (NEGATIVE) Carmen/uL Urine RBC (0-2) /hpf Urine WBC (0-6) /hpf Ur Epithelial Cells (0-5) /hpf Urine Bacteria (NEG) Urine Osmolality 321 (300-1000) mosm/kg Ur Random Sodium 39 meq/L Influenza Typ A,B (EIA) (NEGATIVE) 03/20/18 03/20/18 03/20/18 Range/Units 18:30 17:25 17:25 WBC (4.5-11.0) 10^3/ul RBC (3.5-6.1) 10^6/uL Hgb (12.0-16.0) g/dL Hct (36.0-48.0) % MCV (80.0-105.0) fl MCH (25.0-35.0) pg MCHC (31.0-37.0) g/dl RDW (11.5-14.5) % Plt Count (120.0-450.0) 10^3/uL MPV (7.0-11.0) fl Gran % (50.0-68.0) % Lymph % (Auto) (22.0-35.0) % [place] % (Auto) (1.0-6.0) % Eos % (Auto) (1.5-5.0) % Baso % (Auto) (0.0-3.0) % Gran # (1.4-6.5) Lymph # (Auto) (1.2-3.4) [place] # (Auto) (0.1-0.6) Eos # (Auto) (0.0-0.7) Baso # (Auto) (0.0-2.0) K/mm3 PT (9.4-12.5) SECONDS INR APTT (25.1-36.5) Seconds Sodium 111 L* (132-148) mmol/L Potassium 5.1 H (3.6-5.0) mmol/L Chloride 80 L (98-107) mmol/L Carbon Dioxide 19 L (21-33) mmol/L Anion Gap 17 (10-20) BUN 57 H (7-21) mg/dL Creatinine 1.6 H (0.7-1.2) mg/dl Est GFR ( Amer) 37 Est GFR (Non-Af Amer) 31 POC Glucose (mg/dL) (65-110) mg/dL Random Glucose 182 H (70-110) mg/dL Serum Osmolality (272-300) mosm/kg Uric Acid (2.5-6.2) mg/dL Calcium 8.5 (8.4-10.5) mg/dL Phosphorus (2.5-4.5) mg/dL Magnesium (1.7-2.2) mg/dL Total Bilirubin (0.2-1.3) mg/dL AST (14-36) U/L ALT (7-56) U/L Alkaline Phosphatase (38-126) U/L Lactate Dehydrogenase (333-699) U/L Total Creatine Kinase (35-230) U/L Troponin I ng/mL NT-Pro-B Natriuret Pep (0-450) pg/mL Total Protein (5.8-8.3) g/dL Albumin (3.0-4.8) g/dL Globulin gm/dL Albumin/Globulin Ratio (1.1-1.8) Procalcitonin 0.23 (0.19-0.49) NG/ML Urine Color (YELLOW) Urine Appearance (CLEAR) Urine pH (4.7-8.0) Ur Specific [place] (1.005-1.035) Urine Protein (<30 mg/dL) mg/dL Urine Glucose (UA) (NEGATIVE) mg/dL Urine Ketones (NEGATIVE) mg/dL Urine Blood (NEGATIVE) Urine Nitrate (NEGATIVE) Urine Bilirubin (NEGATIVE) Urine Urobilinogen (<1 E.U./dL) E.U./dL Ur Leukocyte Esterase (NEGATIVE) Carmen/uL Urine RBC (0-2) /hpf Urine WBC (0-6) /hpf Ur Epithelial Cells (0-5) /hpf Urine Bacteria (NEG) Urine Osmolality (300-1000) mosm/kg Ur Random Sodium meq/L Influenza Typ A,B (EIA) Negative for flu a/b (NEGATIVE) 03/20/18 03/20/18 03/20/18 Range/Units 15:30 15:30 15:30 WBC (4.5-11.0) 10^3/ul RBC (3.5-6.1) 10^6/uL Hgb (12.0-16.0) g/dL Hct (36.0-48.0) % MCV (80.0-105.0) fl MCH (25.0-35.0) pg MCHC (31.0-37.0) g/dl RDW (11.5-14.5) % Plt Count (120.0-450.0) 10^3/uL MPV (7.0-11.0) fl Gran % (50.0-68.0) % Lymph % (Auto) (22.0-35.0) % [place] % (Auto) (1.0-6.0) % Eos % (Auto) (1.5-5.0) % Baso % (Auto) (0.0-3.0) % Gran # (1.4-6.5) Lymph # (Auto) (1.2-3.4) [place] # (Auto) (0.1-0.6) Eos # (Auto) (0.0-0.7) Baso # (Auto) (0.0-2.0) K/mm3 PT 13.5 H (9.4-12.5) SECONDS INR 1.18 APTT 31.1 (25.1-36.5) Seconds Sodium 111 L* (132-148) mmol/L Potassium 5.3 H (3.6-5.0) mmol/L Chloride 79 L (98-107) mmol/L Carbon Dioxide 19 L (21-33) mmol/L Anion Gap 18 (10-20) BUN 58 H (7-21) mg/dL Creatinine 1.6 H (0.7-1.2) mg/dl Est GFR ( Amer) 37 Est GFR (Non-Af Amer) 31 POC Glucose (mg/dL) (65-110) mg/dL Random Glucose 214 H (70-110) mg/dL Serum Osmolality 252 L (272-300) mosm/kg Uric Acid (2.5-6.2) mg/dL Calcium 8.7 (8.4-10.5) mg/dL Phosphorus (2.5-4.5) mg/dL Magnesium 2.1 (1.7-2.2) mg/dL Total Bilirubin 1.1 (0.2-1.3) mg/dL AST 42 H (14-36) U/L ALT 33 (7-56) U/L Alkaline Phosphatase 78 (38-126) U/L Lactate Dehydrogenase 612 (333-699) U/L Total Creatine Kinase 78 (35-230) U/L Troponin I 0.05 D ng/mL NT-Pro-B Natriuret Pep 8630 H (0-450) pg/mL Total Protein 6.6 (5.8-8.3) g/dL Albumin 3.7 (3.0-4.8) g/dL Globulin 2.9 gm/dL Albumin/Globulin Ratio 1.3 (1.1-1.8) Procalcitonin (0.19-0.49) NG/ML Urine Color (YELLOW) Urine Appearance (CLEAR) Urine pH (4.7-8.0) Ur Specific [place] (1.005-1.035) Urine Protein (<30 mg/dL) mg/dL Urine Glucose (UA) (NEGATIVE) mg/dL Urine Ketones (NEGATIVE) mg/dL Urine Blood (NEGATIVE) Urine Nitrate (NEGATIVE) Urine Bilirubin (NEGATIVE) Urine Urobilinogen (<1 E.U./dL) E.U./dL Ur Leukocyte Esterase (NEGATIVE) Carmen/uL Urine RBC (0-2) /hpf Urine WBC (0-6) /hpf Ur Epithelial Cells (0-5) /hpf Urine Bacteria (NEG) Urine Osmolality (300-1000) mosm/kg Ur Random Sodium meq/L Influenza Typ A,B (EIA) (NEGATIVE) 03/20/18 03/20/18 Range/Units 15:30 15:00 WBC 12.2 H D (4.5-11.0) 10^3/ul RBC 3.30 L (3.5-6.1) 10^6/uL Hgb 10.6 L D (12.0-16.0) g/dL Hct 28.9 L (36.0-48.0) % MCV 87.6 (80.0-105.0) fl MCH 32.1 (25.0-35.0) pg MCHC 36.7 (31.0-37.0) g/dl RDW 14.9 H (11.5-14.5) % Plt Count 145 (120.0-450.0) 10^3/uL MPV 9.8 (7.0-11.0) fl Gran % 67.7 (50.0-68.0) % Lymph % (Auto) 17.7 L (22.0-35.0) % [place] % (Auto) 13.7 H (1.0-6.0) % Eos % (Auto) 0.7 L (1.5-5.0) % Baso % (Auto) 0.2 (0.0-3.0) % Gran # 8.24 H (1.4-6.5) Lymph # (Auto) 2.2 (1.2-3.4) [place] # (Auto) 1.7 H (0.1-0.6) Eos # (Auto) 0.1 (0.0-0.7) Baso # (Auto) 0.02 (0.0-2.0) K/mm3 PT (9.4-12.5) SECONDS INR APTT (25.1-36.5) Seconds Sodium (132-148) mmol/L Potassium (3.6-5.0) mmol/L Chloride (98-107) mmol/L Carbon Dioxide (21-33) mmol/L Anion Gap (10-20) BUN (7-21) mg/dL Creatinine (0.7-1.2) mg/dl Est GFR ( Amer) Est GFR (Non-Af Amer) POC Glucose (mg/dL) (65-110) mg/dL Random Glucose (70-110) mg/dL Serum Osmolality (272-300) mosm/kg Uric Acid (2.5-6.2) mg/dL Calcium (8.4-10.5) mg/dL Phosphorus (2.5-4.5) mg/dL Magnesium (1.7-2.2) mg/dL Total Bilirubin (0.2-1.3) mg/dL AST (14-36) U/L ALT (7-56) U/L Alkaline Phosphatase (38-126) U/L Lactate Dehydrogenase (333-699) U/L Total Creatine Kinase (35-230) U/L Troponin I ng/mL NT-Pro-B Natriuret Pep (0-450) pg/mL Total Protein (5.8-8.3) g/dL Albumin (3.0-4.8) g/dL Globulin gm/dL Albumin/Globulin Ratio (1.1-1.8) Procalcitonin (0.19-0.49) NG/ML Urine Color Light yellow (YELLOW) Urine Appearance Sl cloudy (CLEAR) Urine pH 6.0 (4.7-8.0) Ur Specific [place] 1.015 (1.005-1.035) Urine Protein Trace H (<30 mg/dL) mg/dL Urine Glucose (UA) Negative (NEGATIVE) mg/dL Urine Ketones Negative (NEGATIVE) mg/dL Urine Blood Moderate H (NEGATIVE) Urine Nitrate Negative (NEGATIVE) Urine Bilirubin Negative (NEGATIVE) Urine Urobilinogen 0.2 (<1 E.U./dL) E.U./dL Ur Leukocyte Esterase Large H (NEGATIVE) Carmen/uL Urine RBC 5 - 10 (0-2) /hpf Urine WBC 25 - 30 (0-6) /hpf Ur Epithelial Cells 1 - 3 (0-5) /hpf Urine Bacteria Mod (NEG) Urine Osmolality (300-1000) mosm/kg Ur Random Sodium meq/L Influenza Typ A,B (EIA) (NEGATIVE) Laboratory Results - last 24 hr 03/20/18 03/20/18 03/20/18 15:00 15:30 15:30 WBC 12.2 H D RBC 3.30 L Hgb 10.6 L D Hct 28.9 L MCV 87.6 MCH 32.1 MCHC 36.7 RDW 14.9 H Plt Count 145 MPV 9.8 Gran % 67.7 Lymph % (Auto) 17.7 L [place] % (Auto) 13.7 H Eos % (Auto) 0.7 L Baso % (Auto) 0.2 Gran # 8.24 H Lymph # (Auto) 2.2 [place] # (Auto) 1.7 H Eos # (Auto) 0.1 Baso # (Auto) 0.02 PT 13.5 H INR 1.18 APTT 31.1 Sodium Potassium Chloride Carbon Dioxide Anion Gap BUN Creatinine Est GFR ( Amer) Est GFR (Non-Af Amer) POC Glucose (mg/dL) Random Glucose Serum Osmolality Uric Acid Calcium Phosphorus Magnesium Total Bilirubin AST ALT Alkaline Phosphatase Lactate Dehydrogenase Total Creatine Kinase Troponin I NT-Pro-B Natriuret Pep Total Protein Albumin Globulin Albumin/Globulin Ratio Procalcitonin Urine Color Light yellow Urine Appearance Sl cloudy Urine pH 6.0 Ur Specific [place] 1.015 Urine Protein Trace H Urine Glucose (UA) Negative Urine Ketones Negative Urine Blood Moderate H Urine Nitrate Negative Urine Bilirubin Negative Urine Urobilinogen 0.2 Ur Leukocyte Esterase Large H Urine RBC 5 - 10 Urine WBC 25 - 30 Ur Epithelial Cells 1 - 3 Urine Bacteria Mod Urine Osmolality Ur Random Sodium Influenza Typ A,B (EIA) 03/20/18 03/20/18 03/20/18 15:30 15:30 17:25 WBC RBC Hgb Hct MCV MCH MCHC RDW Plt Count MPV Gran % Lymph % (Auto) [place] % (Auto) Eos % (Auto) Baso % (Auto) Gran # Lymph # (Auto) [place] # (Auto) Eos # (Auto) Baso # (Auto) PT INR APTT Sodium 111 L* Potassium 5.3 H Chloride 79 L Carbon Dioxide 19 L Anion Gap 18 BUN 58 H Creatinine 1.6 H Est GFR ( Amer) 37 Est GFR (Non-Af Amer) 31 POC Glucose (mg/dL) Random Glucose 214 H Serum Osmolality 252 L Uric Acid Calcium 8.7 Phosphorus Magnesium 2.1 Total Bilirubin 1.1 AST 42 H ALT 33 Alkaline Phosphatase 78 Lactate Dehydrogenase 612 Total Creatine Kinase 78 Troponin I 0.05 D NT-Pro-B Natriuret Pep 8630 H Total Protein 6.6 Albumin 3.7 Globulin 2.9 Albumin/Globulin Ratio 1.3 Procalcitonin Urine Color Urine Appearance Urine pH Ur Specific [place] Urine Protein Urine Glucose (UA) Urine Ketones Urine Blood Urine Nitrate Urine Bilirubin Urine Urobilinogen Ur Leukocyte Esterase Urine RBC Urine WBC Ur Epithelial Cells Urine Bacteria Urine Osmolality Ur Random Sodium Influenza Typ A,B (EIA) Negative for flu a/b 03/20/18 03/20/18 03/20/18 17:25 18:30 18:55 WBC RBC Hgb Hct MCV MCH MCHC RDW Plt Count MPV Gran % Lymph % (Auto) [place] % (Auto) Eos % (Auto) Baso % (Auto) Gran # Lymph # (Auto) [place] # (Auto) Eos # (Auto) Baso # (Auto) PT INR APTT Sodium 111 L* Potassium 5.1 H Chloride 80 L Carbon Dioxide 19 L Anion Gap 17 BUN 57 H Creatinine 1.6 H Est GFR ( Amer) 37 Est GFR (Non-Af Amer) 31 POC Glucose (mg/dL) Random Glucose 182 H Serum Osmolality Uric Acid Calcium 8.5 Phosphorus Magnesium Total Bilirubin AST ALT Alkaline Phosphatase Lactate Dehydrogenase Total Creatine Kinase Troponin I NT-Pro-B Natriuret Pep Total Protein Albumin Globulin Albumin/Globulin Ratio Procalcitonin 0.23 Urine Color Urine Appearance Urine pH Ur Specific [place] Urine Protein Urine Glucose (UA) Urine Ketones Urine Blood Urine Nitrate Urine Bilirubin Urine Urobilinogen Ur Leukocyte Esterase Urine RBC Urine WBC Ur Epithelial Cells Urine Bacteria Urine Osmolality 321 Ur Random Sodium 39 Influenza Typ A,B (EIA) 03/20/18 03/20/18 03/21/18 22:37 23:20 03:35 WBC 10.9 RBC 3.36 L Hgb 10.8 L Hct 29.8 L MCV 88.7 MCH 32.1 MCHC 36.2 RDW 14.9 H Plt Count 140 MPV 9.6 Gran % 71.4 H Lymph % (Auto) 13.9 L [place] % (Auto) 14.3 H Eos % (Auto) 0.2 L Baso % (Auto) 0.2 Gran # 7.76 H Lymph # (Auto) 1.5 [place] # (Auto) 1.6 H Eos # (Auto) 0.0 Baso # (Auto) 0.02 PT INR APTT Sodium 115 L* Potassium 4.5 Chloride 82 L Carbon Dioxide 20 L Anion Gap 18 BUN 55 H Creatinine 1.7 H Est GFR ( Amer) 35 Est GFR (Non-Af Amer) 29 POC Glucose (mg/dL) 159 H Random Glucose 167 H Serum Osmolality Uric Acid 8.1 H Calcium 8.5 Phosphorus Magnesium Total Bilirubin AST ALT Alkaline Phosphatase Lactate Dehydrogenase Total Creatine Kinase Troponin I NT-Pro-B Natriuret Pep Total Protein Albumin Globulin Albumin/Globulin Ratio Procalcitonin Urine Color Urine Appearance Urine pH Ur Specific [place] Urine Protein Urine Glucose (UA) Urine Ketones Urine Blood Urine Nitrate Urine Bilirubin Urine Urobilinogen Ur Leukocyte Esterase Urine RBC Urine WBC Ur Epithelial Cells Urine Bacteria Urine Osmolality Ur Random Sodium Influenza Typ A,B (EIA) 03/21/18 03/21/18 03:35 07:30 WBC RBC Hgb Hct MCV MCH MCHC RDW Plt Count MPV Gran % Lymph % (Auto) [place] % (Auto) Eos % (Auto) Baso % (Auto) Gran # Lymph # (Auto) [place] # (Auto) Eos # (Auto) Baso # (Auto) PT INR APTT Sodium 115 L* 115 L* Potassium 4.8 4.8 Chloride 82 L 85 L Carbon Dioxide 20 L 18 L Anion Gap 18 18 BUN 54 H 54 H Creatinine 1.7 H 1.7 H Est GFR ( Amer) 35 35 Est GFR (Non-Af Amer) 29 29 POC Glucose (mg/dL) Random Glucose 185 H 171 H Serum Osmolality Uric Acid Calcium 8.6 8.5 Phosphorus 4.7 H Magnesium 2.2 Total Bilirubin 1.0 AST 30 ALT 33 Alkaline Phosphatase 73 Lactate Dehydrogenase Total Creatine Kinase Troponin I NT-Pro-B Natriuret Pep Total Protein 6.8 Albumin 3.8 Globulin 3.0 Albumin/Globulin Ratio 1.3 Procalcitonin Urine Color Urine Appearance Urine pH Ur Specific [place] Urine Protein Urine Glucose (UA) Urine Ketones Urine Blood Urine Nitrate Urine Bilirubin Urine Urobilinogen Ur Leukocyte Esterase Urine RBC Urine WBC Ur Epithelial Cells Urine Bacteria Urine Osmolality Ur Random Sodium Influenza Typ A,B (EIA) EKG/Cardiology Studies: Cardiology / EKG Studies 03/20/18 14:46 ELECTROCARDIOGRAM Stat Comment: Reason For Exam: sob 03/20/18 14:57 EKG [ELECTROCARDIOGRAM] Stat Comment: Reason For Exam: COUGH Review of Systems - Constitutional Constitutional: Chills - Cardiovascular Cardiovascular: absent: Chest Pain, Dyspnea - Respiratory Respiratory: Cough. absent: Dyspnea - Gastrointestinal Gastrointestinal: absent: Abdominal Pain, Nausea, Vomiting Critical Care Progress Note - Nutrition Nutrition: Nutrition Category Date Time Status Consistent Carbohydrate [DIET] Diets 03/20/18 Dinner Ordered Assessment/Plan - Assessment and Plan (Free Text) Assessment: 82 yo F with PMH of CKD, cirrhosis, CHF, HTN, DM2, CAD (s/p stents), COPD, and GI bleed admitted to ICU for severe hyponatremia of 111 on admission now steadily rising to 115. Plan: Neuro: -Patient continues to be AA/o x 3, is moving extremities past midline and shows no neurological deficits -She states her OSPINA is improving -Reorient patient as necessary Cardio: -Sinus bradycardia with rate of 55 noted overnight -Continue to monitor HR closely -Maintain MAP>65 Pulm: -Patient states flu-like symptoms, including cough, are improving -Rapid flu antigen negative -Patient SpO2 > 90% on 2L NC, maintain -Additional O2 NC PRN GI: -Tolerating HHD without nausea/vomiting -Protonix for GI PPX /Nephro: -Severe hyponatremia with Na of 111 identified in ED -Overnight, Na was increased to 115 with NS @ 60 cc/hr -This AM, Na is still 115 -Increase NS to 100 cc/hr -Continue Q4 BMP to monitor Na closely -UA with large leukocyte esterase and WBC, will treat for UTI -Will discuss plan with nephrology Endocrinology: -Blood sugar has been <190 since admission to ICU, continue to maintain euglycemia -Continue ISS, ACHS fingerstick Heme/Onc: -H/H stable at 10.6/28.9 -No signs of HD compromise. -Continue monitoring H/H ID: -Arrived in ED with flu-like symptoms -Rapid flu antigen negative -Procal 0.23 -UA with large leukocyte esterase and WBC -Rocephin 1 g given in ED, continue rocephin 1 g daily -Blood, urine cx pending DVT/GI PPX: Sc heparin and protonix Full Code Monitor in MICU Case and plan reviewed and discussed with my attending Dr. Pedro Holloway, DO IM Resident PGY-1 <Johnny Barnett - Last Filed: 03/21/18 17:13> CCU Objective - Vital Signs / Intake & Output Vital Signs (Last 4 hours): Vital Signs Pulse Resp BP Pulse Ox 03/21/18 16:20 57 L 24 97 03/21/18 16:10 57 L 17 96 03/21/18 16:00 55 L 16 136/48 L 97 03/21/18 15:50 55 L 19 96 03/21/18 15:40 55 L 20 99 03/21/18 15:30 57 L 19 94 L 03/21/18 15:20 57 L 16 94 L 03/21/18 15:10 56 L 14 97 03/21/18 15:00 55 L 18 128/40 L 97 03/21/18 14:50 56 L 16 97 03/21/18 14:40 57 L 30 H 96 03/21/18 14:30 58 L 27 H 96 03/21/18 14:20 57 L 20 96 03/21/18 14:10 57 L 21 97 03/21/18 14:01 58 L 21 123/61 96 03/21/18 14:00 59 L 20 97 03/21/18 13:50 56 L 98 03/21/18 13:40 56 L 18 97 03/21/18 13:30 54 L 19 97 03/21/18 13:20 56 L 19 97 Intake and Output (Last 8hrs): Intake & Output 03/21/18 03/21/18 03/21/18 06:59 14:59 22:59 Intake Total 720 Balance 720 Weight 52.617 kg Intake: IV 720 Left Antecubital 720 - Medications Active Medications: Active Medications Generic Name Dose Route Start Last Admin Trade Name Freq PRN Reason Stop Dose Admin Acetaminophen 650 mg 03/20/18 18:27 Tylenol 325mg Tab PO Q6H PRN Pain, moderate (4-7) Al Hydrox/Mg Hydrox/Simethicone 5 ml 03/20/18 18:38 Maalox Plus 30 Ml PO Q4H PRN Heartburn Alprazolam 0.25 mg 03/20/18 18:31 03/20/18 20:10 Xanax PO 03/27/18 18:32 0.25 mg Q12H PRN Administration Anxiety Protocol Amlodipine Besylate 10 mg 03/21/18 10:00 03/21/18 09:46 Norvasc PO 10 mg DAILY JAK Administration Aspirin 81 mg 03/21/18 10:00 03/21/18 09:46 Aspirin Chewable PO 81 mg DAILY JAK Administration Heparin Sodium (Porcine) 5,000 units 03/20/18 22:00 03/21/18 13:55 Heparin SC 5,000 units Q8 JAK Administration Protocol Ceftriaxone Sodium 1 gm in 100 mls @ 100 mls/hr 03/21/18 10:00 03/21/18 09:47 Rocephin 1 Gram Ivpb IVPB 100 mls/hr DAILY JAK Administration Protocol Sodium Chloride 500 mls @ 20 mls/hr 03/20/18 19:15 03/21/18 13:55 Hypertonic Saline 3% IV 20 mls/hr .Q24H JAK Administration Insulin Human Regular 0 units 03/20/18 22:00 03/21/18 16:20 Humulin R High SC 7 units ACHS JAK Administration Protocol Levalbuterol HCl 0.63 mg 03/20/18 20:00 03/21/18 13:00 Xopenex IH 0.63 mg TIDRESP JAK Administration Ondansetron HCl 4 mg 03/20/18 17:17 Zofran Inj IVP Q6H PRN Nausea/Vomiting Pantoprazole Sodium 40 mg 03/22/18 07:30 Protonix Ec Tab PO ACB JAK - Patient Studies Lab Studies: Lab Studies 03/21/18 03/21/18 03/21/18 Range/Units 16:08 11:20 07:30 WBC (4.5-11.0) 10^3/ul RBC (3.5-6.1) 10^6/uL Hgb (12.0-16.0) g/dL Hct (36.0-48.0) % MCV (80.0-105.0) fl MCH (25.0-35.0) pg MCHC (31.0-37.0) g/dl RDW (11.5-14.5) % Plt Count (120.0-450.0) 10^3/uL MPV (7.0-11.0) fl Gran % (50.0-68.0) % Lymph % (Auto) (22.0-35.0) % [place] % (Auto) (1.0-6.0) % Eos % (Auto) (1.5-5.0) % Baso % (Auto) (0.0-3.0) % Gran # (1.4-6.5) Lymph # (Auto) (1.2-3.4) [place] # (Auto) (0.1-0.6) Eos # (Auto) (0.0-0.7) Baso # (Auto) (0.0-2.0) K/mm3 Sodium 115 L* 115 L* (132-148) mmol/L Potassium 5.0 4.8 (3.6-5.0) mmol/L Chloride 85 L 85 L (98-107) mmol/L Carbon Dioxide 18 L 18 L (21-33) mmol/L Anion Gap 18 18 (10-20) BUN 54 H 54 H (7-21) mg/dL Creatinine 1.6 H 1.7 H (0.7-1.2) mg/dl Est GFR ( Amer) 37 35 Est GFR (Non-Af Amer) 31 29 POC Glucose (mg/dL) 263 H (65-110) mg/dL Random Glucose 248 H 171 H (70-110) mg/dL Serum Osmolality (272-300) mosm/kg Uric Acid (2.5-6.2) mg/dL Calcium 8.4 8.5 (8.4-10.5) mg/dL Phosphorus (2.5-4.5) mg/dL Magnesium (1.7-2.2) mg/dL Total Bilirubin (0.2-1.3) mg/dL AST (14-36) U/L ALT (7-56) U/L Alkaline Phosphatase (38-126) U/L Total Protein (5.8-8.3) g/dL Albumin (3.0-4.8) g/dL Globulin gm/dL Albumin/Globulin Ratio (1.1-1.8) Procalcitonin (0.19-0.49) NG/ML Urine Color (YELLOW) Urine Appearance (CLEAR) Urine pH (4.7-8.0) Ur Specific [place] (1.005-1.035) Urine Protein (<30 mg/dL) mg/dL Urine Glucose (UA) (NEGATIVE) mg/dL Urine Ketones (NEGATIVE) mg/dL Urine Blood (NEGATIVE) Urine Nitrate (NEGATIVE) Urine Bilirubin (NEGATIVE) Urine Urobilinogen (<1 E.U./dL) E.U./dL Ur Leukocyte Esterase (NEGATIVE) Carmen/uL Urine RBC (0-2) /hpf Urine WBC (0-6) /hpf Ur Epithelial Cells (0-5) /hpf Urine Bacteria (NEG) Urine Osmolality (300-1000) mosm/kg Ur Random Sodium meq/L Influenza Typ A,B (EIA) (NEGATIVE) 03/21/18 03/21/18 03/20/18 Range/Units 03:35 03:35 23:20 WBC 10.9 (4.5-11.0) 10^3/ul RBC 3.36 L (3.5-6.1) 10^6/uL Hgb 10.8 L (12.0-16.0) g/dL Hct 29.8 L (36.0-48.0) % MCV 88.7 (80.0-105.0) fl MCH 32.1 (25.0-35.0) pg MCHC 36.2 (31.0-37.0) g/dl RDW 14.9 H (11.5-14.5) % Plt Count 140 (120.0-450.0) 10^3/uL MPV 9.6 (7.0-11.0) fl Gran % 71.4 H (50.0-68.0) % Lymph % (Auto) 13.9 L (22.0-35.0) % [place] % (Auto) 14.3 H (1.0-6.0) % Eos % (Auto) 0.2 L (1.5-5.0) % Baso % (Auto) 0.2 (0.0-3.0) % Gran # 7.76 H (1.4-6.5) Lymph # (Auto) 1.5 (1.2-3.4) [place] # (Auto) 1.6 H (0.1-0.6) Eos # (Auto) 0.0 (0.0-0.7) Baso # (Auto) 0.02 (0.0-2.0) K/mm3 Sodium 115 L* 115 L* (132-148) mmol/L Potassium 4.8 4.5 (3.6-5.0) mmol/L Chloride 82 L 82 L (98-107) mmol/L Carbon Dioxide 20 L 20 L (21-33) mmol/L Anion Gap 18 18 (10-20) BUN 54 H 55 H (7-21) mg/dL Creatinine 1.7 H 1.7 H (0.7-1.2) mg/dl Est GFR ( Amer) 35 35 Est GFR (Non-Af Amer) 29 29 POC Glucose (mg/dL) (65-110) mg/dL Random Glucose 185 H 167 H (70-110) mg/dL Serum Osmolality (272-300) mosm/kg Uric Acid 8.1 H (2.5-6.2) mg/dL Calcium 8.6 8.5 (8.4-10.5) mg/dL Phosphorus 4.7 H (2.5-4.5) mg/dL Magnesium 2.2 (1.7-2.2) mg/dL Total Bilirubin 1.0 (0.2-1.3) mg/dL AST 30 (14-36) U/L ALT 33 (7-56) U/L Alkaline Phosphatase 73 (38-126) U/L Total Protein 6.8 (5.8-8.3) g/dL Albumin 3.8 (3.0-4.8) g/dL Globulin 3.0 gm/dL Albumin/Globulin Ratio 1.3 (1.1-1.8) Procalcitonin (0.19-0.49) NG/ML Urine Color (YELLOW) Urine Appearance (CLEAR) Urine pH (4.7-8.0) Ur Specific [place] (1.005-1.035) Urine Protein (<30 mg/dL) mg/dL Urine Glucose (UA) (NEGATIVE) mg/dL Urine Ketones (NEGATIVE) mg/dL Urine Blood (NEGATIVE) Urine Nitrate (NEGATIVE) Urine Bilirubin (NEGATIVE) Urine Urobilinogen (<1 E.U./dL) E.U./dL Ur Leukocyte Esterase (NEGATIVE) Carmen/uL Urine RBC (0-2) /hpf Urine WBC (0-6) /hpf Ur Epithelial Cells (0-5) /hpf Urine Bacteria (NEG) Urine Osmolality (300-1000) mosm/kg Ur Random Sodium meq/L Influenza Typ A,B (EIA) (NEGATIVE) 03/20/18 03/20/18 03/20/18 Range/Units 22:37 18:55 18:30 WBC (4.5-11.0) 10^3/ul RBC (3.5-6.1) 10^6/uL Hgb (12.0-16.0) g/dL Hct (36.0-48.0) % MCV (80.0-105.0) fl MCH (25.0-35.0) pg MCHC (31.0-37.0) g/dl RDW (11.5-14.5) % Plt Count (120.0-450.0) 10^3/uL MPV (7.0-11.0) fl Gran % (50.0-68.0) % Lymph % (Auto) (22.0-35.0) % [place] % (Auto) (1.0-6.0) % Eos % (Auto) (1.5-5.0) % Baso % (Auto) (0.0-3.0) % Gran # (1.4-6.5) Lymph # (Auto) (1.2-3.4) [place] # (Auto) (0.1-0.6) Eos # (Auto) (0.0-0.7) Baso # (Auto) (0.0-2.0) K/mm3 Sodium 111 L* (132-148) mmol/L Potassium 5.1 H (3.6-5.0) mmol/L Chloride 80 L (98-107) mmol/L Carbon Dioxide 19 L (21-33) mmol/L Anion Gap 17 (10-20) BUN 57 H (7-21) mg/dL Creatinine 1.6 H (0.7-1.2) mg/dl Est GFR ( Amer) 37 Est GFR (Non-Af Amer) 31 POC Glucose (mg/dL) 159 H (65-110) mg/dL Random Glucose 182 H (70-110) mg/dL Serum Osmolality (272-300) mosm/kg Uric Acid (2.5-6.2) mg/dL Calcium 8.5 (8.4-10.5) mg/dL Phosphorus (2.5-4.5) mg/dL Magnesium (1.7-2.2) mg/dL Total Bilirubin (0.2-1.3) mg/dL AST (14-36) U/L ALT (7-56) U/L Alkaline Phosphatase (38-126) U/L Total Protein (5.8-8.3) g/dL Albumin (3.0-4.8) g/dL Globulin gm/dL Albumin/Globulin Ratio (1.1-1.8) Procalcitonin (0.19-0.49) NG/ML Urine Color (YELLOW) Urine Appearance (CLEAR) Urine pH (4.7-8.0) Ur Specific [place] (1.005-1.035) Urine Protein (<30 mg/dL) mg/dL Urine Glucose (UA) (NEGATIVE) mg/dL Urine Ketones (NEGATIVE) mg/dL Urine Blood (NEGATIVE) Urine Nitrate (NEGATIVE) Urine Bilirubin (NEGATIVE) Urine Urobilinogen (<1 E.U./dL) E.U./dL Ur Leukocyte Esterase (NEGATIVE) Carmen/uL Urine RBC (0-2) /hpf Urine WBC (0-6) /hpf Ur Epithelial Cells (0-5) /hpf Urine Bacteria (NEG) Urine Osmolality 321 (300-1000) mosm/kg Ur Random Sodium 39 meq/L Influenza Typ A,B (EIA) (NEGATIVE) 03/20/18 03/20/18 03/20/18 Range/Units 17:25 17:25 15:30 WBC (4.5-11.0) 10^3/ul RBC (3.5-6.1) 10^6/uL Hgb (12.0-16.0) g/dL Hct (36.0-48.0) % MCV (80.0-105.0) fl MCH (25.0-35.0) pg MCHC (31.0-37.0) g/dl RDW (11.5-14.5) % Plt Count (120.0-450.0) 10^3/uL MPV (7.0-11.0) fl Gran % (50.0-68.0) % Lymph % (Auto) (22.0-35.0) % [place] % (Auto) (1.0-6.0) % Eos % (Auto) (1.5-5.0) % Baso % (Auto) (0.0-3.0) % Gran # (1.4-6.5) Lymph # (Auto) (1.2-3.4) [place] # (Auto) (0.1-0.6) Eos # (Auto) (0.0-0.7) Baso # (Auto) (0.0-2.0) K/mm3 Sodium (132-148) mmol/L Potassium (3.6-5.0) mmol/L Chloride (98-107) mmol/L Carbon Dioxide (21-33) mmol/L Anion Gap (10-20) BUN (7-21) mg/dL Creatinine (0.7-1.2) mg/dl Est GFR ( Amer) Est GFR (Non-Af Amer) POC Glucose (mg/dL) (65-110) mg/dL Random Glucose (70-110) mg/dL Serum Osmolality 252 L (272-300) mosm/kg Uric Acid (2.5-6.2) mg/dL Calcium (8.4-10.5) mg/dL Phosphorus (2.5-4.5) mg/dL Magnesium (1.7-2.2) mg/dL Total Bilirubin (0.2-1.3) mg/dL AST (14-36) U/L ALT (7-56) U/L Alkaline Phosphatase (38-126) U/L Total Protein (5.8-8.3) g/dL Albumin (3.0-4.8) g/dL Globulin gm/dL Albumin/Globulin Ratio (1.1-1.8) Procalcitonin 0.23 (0.19-0.49) NG/ML Urine Color (YELLOW) Urine Appearance (CLEAR) Urine pH (4.7-8.0) Ur Specific [place] (1.005-1.035) Urine Protein (<30 mg/dL) mg/dL Urine Glucose (UA) (NEGATIVE) mg/dL Urine Ketones (NEGATIVE) mg/dL Urine Blood (NEGATIVE) Urine Nitrate (NEGATIVE) Urine Bilirubin (NEGATIVE) Urine Urobilinogen (<1 E.U./dL) E.U./dL Ur Leukocyte Esterase (NEGATIVE) Carmen/uL Urine RBC (0-2) /hpf Urine WBC (0-6) /hpf Ur Epithelial Cells (0-5) /hpf Urine Bacteria (NEG) Urine Osmolality (300-1000) mosm/kg Ur Random Sodium meq/L Influenza Typ A,B (EIA) Negative for flu a/b (NEGATIVE) 03/20/18 Range/Units 15:00 WBC (4.5-11.0) 10^3/ul RBC (3.5-6.1) 10^6/uL Hgb (12.0-16.0) g/dL Hct (36.0-48.0) % MCV (80.0-105.0) fl MCH (25.0-35.0) pg MCHC (31.0-37.0) g/dl RDW (11.5-14.5) % Plt Count (120.0-450.0) 10^3/uL MPV (7.0-11.0) fl Gran % (50.0-68.0) % Lymph % (Auto) (22.0-35.0) % [place] % (Auto) (1.0-6.0) % Eos % (Auto) (1.5-5.0) % Baso % (Auto) (0.0-3.0) % Gran # (1.4-6.5) Lymph # (Auto) (1.2-3.4) [place] # (Auto) (0.1-0.6) Eos # (Auto) (0.0-0.7) Baso # (Auto) (0.0-2.0) K/mm3 Sodium (132-148) mmol/L Potassium (3.6-5.0) mmol/L Chloride (98-107) mmol/L Carbon Dioxide (21-33) mmol/L Anion Gap (10-20) BUN (7-21) mg/dL Creatinine (0.7-1.2) mg/dl Est GFR ( Amer) Est GFR (Non-Af Amer) POC Glucose (mg/dL) (65-110) mg/dL Random Glucose (70-110) mg/dL Serum Osmolality (272-300) mosm/kg Uric Acid (2.5-6.2) mg/dL Calcium (8.4-10.5) mg/dL Phosphorus (2.5-4.5) mg/dL Magnesium (1.7-2.2) mg/dL Total Bilirubin (0.2-1.3) mg/dL AST (14-36) U/L ALT (7-56) U/L Alkaline Phosphatase (38-126) U/L Total Protein (5.8-8.3) g/dL Albumin (3.0-4.8) g/dL Globulin gm/dL Albumin/Globulin Ratio (1.1-1.8) Procalcitonin (0.19-0.49) NG/ML Urine Color Light yellow (YELLOW) Urine Appearance Sl cloudy (CLEAR) Urine pH 6.0 (4.7-8.0) Ur Specific [place] 1.015 (1.005-1.035) Urine Protein Trace H (<30 mg/dL) mg/dL Urine Glucose (UA) Negative (NEGATIVE) mg/dL Urine Ketones Negative (NEGATIVE) mg/dL Urine Blood Moderate H (NEGATIVE) Urine Nitrate Negative (NEGATIVE) Urine Bilirubin Negative (NEGATIVE) Urine Urobilinogen 0.2 (<1 E.U./dL) E.U./dL Ur Leukocyte Esterase Large H (NEGATIVE) Carmen/uL Urine RBC 5 - 10 (0-2) /hpf Urine WBC 25 - 30 (0-6) /hpf Ur Epithelial Cells 1 - 3 (0-5) /hpf Urine Bacteria Mod (NEG) Urine Osmolality (300-1000) mosm/kg Ur Random Sodium meq/L Influenza Typ A,B (EIA) (NEGATIVE) Laboratory Results - last 24 hr 03/20/18 03/20/18 03/20/18 15:00 15:30 17:25 WBC RBC Hgb Hct MCV MCH MCHC RDW Plt Count MPV Gran % Lymph % (Auto) [place] % (Auto) Eos % (Auto) Baso % (Auto) Gran # Lymph # (Auto) [place] # (Auto) Eos # (Auto) Baso # (Auto) Sodium Potassium Chloride Carbon Dioxide Anion Gap BUN Creatinine Est GFR ( Amer) Est GFR (Non-Af Amer) POC Glucose (mg/dL) Random Glucose Serum Osmolality 252 L Uric Acid Calcium Phosphorus Magnesium Total Bilirubin AST ALT Alkaline Phosphatase Total Protein Albumin Globulin Albumin/Globulin Ratio Procalcitonin Urine Color Light yellow Urine Appearance Sl cloudy Urine pH 6.0 Ur Specific [place] 1.015 Urine Protein Trace H Urine Glucose (UA) Negative Urine Ketones Negative Urine Blood Moderate H Urine Nitrate Negative Urine Bilirubin Negative Urine Urobilinogen 0.2 Ur Leukocyte Esterase Large H Urine RBC 5 - 10 Urine WBC 25 - 30 Ur Epithelial Cells 1 - 3 Urine Bacteria Mod Urine Osmolality Ur Random Sodium Influenza Typ A,B (EIA) Negative for flu a/b 03/20/18 03/20/18 03/20/18 17:25 18:30 18:55 WBC RBC Hgb Hct MCV MCH MCHC RDW Plt Count MPV Gran % Lymph % (Auto) [place] % (Auto) Eos % (Auto) Baso % (Auto) Gran # Lymph # (Auto) [place] # (Auto) Eos # (Auto) Baso # (Auto) Sodium 111 L* Potassium 5.1 H Chloride 80 L Carbon Dioxide 19 L Anion Gap 17 BUN 57 H Creatinine 1.6 H Est GFR ( Amer) 37 Est GFR (Non-Af Amer) 31 POC Glucose (mg/dL) Random Glucose 182 H Serum Osmolality Uric Acid Calcium 8.5 Phosphorus Magnesium Total Bilirubin AST ALT Alkaline Phosphatase Total Protein Albumin Globulin Albumin/Globulin Ratio Procalcitonin 0.23 Urine Color Urine Appearance Urine pH Ur Specific [place] Urine Protein Urine Glucose (UA) Urine Ketones Urine Blood Urine Nitrate Urine Bilirubin Urine Urobilinogen Ur Leukocyte Esterase Urine RBC Urine WBC Ur Epithelial Cells Urine Bacteria Urine Osmolality 321 Ur Random Sodium 39 Influenza Typ A,B (EIA) 03/20/18 03/20/18 03/21/18 22:37 23:20 03:35 WBC 10.9 RBC 3.36 L Hgb 10.8 L Hct 29.8 L MCV 88.7 MCH 32.1 MCHC 36.2 RDW 14.9 H Plt Count 140 MPV 9.6 Gran % 71.4 H Lymph % (Auto) 13.9 L [place] % (Auto) 14.3 H Eos % (Auto) 0.2 L Baso % (Auto) 0.2 Gran # 7.76 H Lymph # (Auto) 1.5 [place] # (Auto) 1.6 H Eos # (Auto) 0.0 Baso # (Auto) 0.02 Sodium 115 L* Potassium 4.5 Chloride 82 L Carbon Dioxide 20 L Anion Gap 18 BUN 55 H Creatinine 1.7 H Est GFR ( Amer) 35 Est GFR (Non-Af Amer) 29 POC Glucose (mg/dL) 159 H Random Glucose 167 H Serum Osmolality Uric Acid 8.1 H Calcium 8.5 Phosphorus Magnesium Total Bilirubin AST ALT Alkaline Phosphatase Total Protein Albumin Globulin Albumin/Globulin Ratio Procalcitonin Urine Color Urine Appearance Urine pH Ur Specific [place] Urine Protein Urine Glucose (UA) Urine Ketones Urine Blood Urine Nitrate Urine Bilirubin Urine Urobilinogen Ur Leukocyte Esterase Urine RBC Urine WBC Ur Epithelial Cells Urine Bacteria Urine Osmolality Ur Random Sodium Influenza Typ A,B (EIA) 03/21/18 03/21/18 03/21/18 03:35 07:30 11:20 WBC RBC Hgb Hct MCV MCH MCHC RDW Plt Count MPV Gran % Lymph % (Auto) [place] % (Auto) Eos % (Auto) Baso % (Auto) Gran # Lymph # (Auto) [place] # (Auto) Eos # (Auto) Baso # (Auto) Sodium 115 L* 115 L* 115 L* Potassium 4.8 4.8 5.0 Chloride 82 L 85 L 85 L Carbon Dioxide 20 L 18 L 18 L Anion Gap 18 18 18 BUN 54 H 54 H 54 H Creatinine 1.7 H 1.7 H 1.6 H Est GFR ( Amer) 35 35 37 Est GFR (Non-Af Amer) 29 29 31 POC Glucose (mg/dL) Random Glucose 185 H 171 H 248 H Serum Osmolality Uric Acid Calcium 8.6 8.5 8.4 Phosphorus 4.7 H Magnesium 2.2 Total Bilirubin 1.0 AST 30 ALT 33 Alkaline Phosphatase 73 Total Protein 6.8 Albumin 3.8 Globulin 3.0 Albumin/Globulin Ratio 1.3 Procalcitonin Urine Color Urine Appearance Urine pH Ur Specific [place] Urine Protein Urine Glucose (UA) Urine Ketones Urine Blood Urine Nitrate Urine Bilirubin Urine Urobilinogen Ur Leukocyte Esterase Urine RBC Urine WBC Ur Epithelial Cells Urine Bacteria Urine Osmolality Ur Random Sodium Influenza Typ A,B (EIA) 03/21/18 16:08 WBC RBC Hgb Hct MCV MCH MCHC RDW Plt Count MPV Gran % Lymph % (Auto) [place] % (Auto) Eos % (Auto) Baso % (Auto) Gran # Lymph # (Auto) [place] # (Auto) Eos # (Auto) Baso # (Auto) Sodium Potassium Chloride Carbon Dioxide Anion Gap BUN Creatinine Est GFR ( Amer) Est GFR (Non-Af Amer) POC Glucose (mg/dL) 263 H Random Glucose Serum Osmolality Uric Acid Calcium Phosphorus Magnesium Total Bilirubin AST ALT Alkaline Phosphatase Total Protein Albumin Globulin Albumin/Globulin Ratio Procalcitonin Urine Color Urine Appearance Urine pH Ur Specific [place] Urine Protein Urine Glucose (UA) Urine Ketones Urine Blood Urine Nitrate Urine Bilirubin Urine Urobilinogen Ur Leukocyte Esterase Urine RBC Urine WBC Ur Epithelial Cells Urine Bacteria Urine Osmolality Ur Random Sodium Influenza Typ A,B (EIA) Critical Care Progress Note - Nutrition Nutrition: Nutrition Category Date Time Status Consistent Carbohydrate [DIET] Diets 03/20/18 Dinner Ordered Addendum Addendum: 03/21/18 17:13 ICU Attending Addendum Patient seen and examined. Case reviewed on round with housestaff. Agree with resident note above with the following additions/exceptions: 82F with PMHx of PNA, CKD, CHF, presented with malaise, fatigue, and hyponatremia, Na 111. Patient currently afebrile, HD stable, Low serum Na and Serum Osm Urine Na 39 uOsm 321 Hypotonic hypernatremia Unclear if hypovolemic which would suggest directic induced vs euvolemic SIADH NS given gently overnight, Na moved up slightly Nephro board hypoNa management as per Nephro no neuro symtpoms at this point Severe Hyponatremia CHF CKD Malaise Recommend: - supp o2 as needed, duonebs PRN, IS -f/u cultures - Check BMP q6hr, goal Na correction 6-8meq/24hr - Hold Lasix -f/u nephro recs - GI ppx - DVT ppx rest of care above Johnny Barnett MD [employer]
--- NOTE | 2018-03-21 10:48 | CARD ---
APPROVED REPORT Date of service: 03/20/2018 EKG Measurement Heart [id number] <Conclusion> Junctional rhythm with retrograde P waves Nonspecific ST abnormality Abnormal ECG
--- NOTE | 2018-03-21 10:49 | CARD ---
APPROVED REPORT Date of service: 03/20/2018 EKG Measurement Heart [id number] <Conclusion> Junctional rhythm with retrograde P wave Nonspecific ST abnormality Abnormal ECG
[2018-03-21 11:43] LABS: CALCIUM 8.4 mg/dL (8.4-10.5)
[2018-03-21] MEDS: Sodium Chloride 3% 500 ML IV SCH (13:55)
--- NOTE | 2018-03-21 14:38 | RAD ---
Date of service: 03/21/2018 HISTORY: crackles on left COMPARISON: 03/20/2018 FINDINGS: LUNGS: Bilateral lower lobe infiltrates right greater than left. PLEURA: Right pleural effusion inseparable from right lower lobe infiltrate CARDIOVASCULAR: Atherosclerotic calcifications identified primarily aortic arch. Stable cardiomegaly. OSSEOUS STRUCTURES: No significant abnormalities. VISUALIZED UPPER ABDOMEN: Normal. OTHER FINDINGS: None. IMPRESSION: Lower lobe infiltrates right greater than left. Associated right pleural effusion.
[2018-03-21 18:08] LABS: CALCIUM 8.6 mg/dL (8.4-10.5)
[2018-03-21] MEDS: Promethazine DM 6.25 mg-15 mg/5 ml Syrup PO SCH (20:45)
[2018-03-21 21:30] LABS: CALCIUM 8.7 mg/dL (8.4-10.5)
--- NOTE | 2018-03-22 01:42 | PN ---
DATE: 03/21/2018 SUBJECTIVE: The patient is an 82-year-old, seen and examined, seems to be more alert, had some breakfast, complained of having scanty cough. PHYSICAL EXAMINATION: VITAL SIGNS: She is afebrile, pulse 60, respirations 21, and blood pressure 134/83. LUNGS: Bilateral fair airflow. No rhonchi or crackle. HEART: S1 and S2 audible. ABDOMEN: Soft, nontender. No rebound. No guarding. NEUROLOGICAL: The patient is awake, alert, oriented, able to communicate. EXTREMITIES: Bilateral legs, no edema. LABORATORY DATA: WBC is 10.9, hemoglobin 10.8, hematocrit 29.8, and platelets of 140. Chemistry: Her sodium is 117, potassium 5.3, chloride 86, CO2 of 18, BUN 56, creatinine 1.7, blood sugar of 239. Blood cultures negative. Her x-ray of the chest done that shows lower lobe infiltrates, right greater than the left, associated right pleural effusion. ASSESSMENT: 1. Symptomatic hyponatremia. 2. Right lower lobe infiltrate. 3. Hypertension. 4. Insulin-dependent diabetes. 5. Hyperlipidemia. PLAN: Currently, the patient is on 3% of hypertonic saline. Continue her on aspirin, DVT prophylaxis. Blood sugar is being monitored. We will order for antitussives. We will monitor electrolyte in a.m. Spoke to the who is the power of litigation attorney associate, requesting for DNR. Harsh Morataya MD
[2018-03-22 02:20] LABS: CALCIUM 8.5 mg/dL (8.4-10.5)
--- NOTE | 2018-03-22 04:13 | CON ---
DATE: 03/21/2018 REASON FOR CONSULTATION: Severe hyponatremia. HISTORY OF PRESENTING ILLNESS: An 82-year-old [facility] because of finding of low sodium during blood work done [facility]. The patient also complains of cough. She complains of shortness of breath. She reports right-sided chest pain with her cough. She also complains of some chills. She denies any fevers. She denies any nausea, vomiting or diarrhea. In the emergency room, she was found to be short of breath. She was found to be afebrile. Blood pressure was 133/56. Her initial WBC count was 12.2. She was found to have a critically low sodium of 111. The case was discussed with the chemistry teacher last night. The patient was thought to be dehydrated. She was started on 100 mL of normal saline per hour. She was admitted to the ICU. Currently, she is seen in the ICU. She is sitting in chair. She is in mild to moderate respiratory distress. She complains of cough and right-sided chest pain. She has been receiving normal saline at 100 mL/hour. Her intake has been reported as 720 mL, but I think it is more than that. Her sodium has risen from 111 to 115. There has been no change in the sodium in the last 12 hours. PAST MEDICAL AND SURGICAL HISTORY: CHF, cardiomyopathy, cardiac cirrhosis, CAD, PTCA and stent, severe GI bleed, Dieulafoy lesion of the stomach, COPD, hypertension, chronic kidney disease stage IV, recurrent GI bleeding, severe anemia, recurrent hyponatremia, history of right hemicolectomy. FAMILY HISTORY: Hypertension and diabetes. SOCIAL HISTORY: No smoking, no alcohol use, no IV drug abuse. ALLERGIES: SHELLFISH. MEDICATIONS: In the [facility] include Zaroxolyn 2.5 daily, zolpidem, Aldactone 50 b.i.d., sodium chloride 1 g b.i.d., Protonix, Zofran, magnesium hydroxide 5 mL every 24, Imdur 60, insulin, Lasix 40, aspirin 81, amlodipine 10. REVIEW OF SYSTEMS: All systems are reviewed, pertinent positives as mentioned in history of presenting illness, rest unremarkable. PHYSICAL EXAMINATION: GENERAL: An 82-year-old lady, sitting in chair in the ICU. VITAL SIGNS: Blood pressure 135/53, heart rate 55, respiratory rate 24 to 28, temperature 98.9. HEENT: Normocephalic, atraumatic, positive pallor. NECK: Supple, no JVD. LUNGS: Bilateral equal entry, bilateral equal expansion, crackles right base. CARDIAC: S1 and S2, regular rate and rhythm, no murmur, no rub. ABDOMEN: Obese, distended, soft, nontender, bowel sounds present. EXTREMITIES: No lower extremity edema. INTAKE AND OUTPUT: 720/nothing? LABORATORY DATA: WBC 10.9, hemoglobin 10.8, hematocrit 30, platelets 140. Sodium 115, potassium 5.0, chloride 85, CO2 of 18. BUN 54, creatinine 1.6, glucose 248, calcium 8.4, phosphorus 4.7, magnesium 2.2, albumin 3.8. Urinalysis: Light yellow, cloudy, pH 6.0, specific gravity 1.015, protein trace, moderate blood, leukocyte esterase large, rbc's 5 to 10, wbc's 25 to 30, urine sodium 39, urine osmolality 321. Influenza negative. Cultures pending. Chest x-ray, unremarkable. CURRENT MEDICATIONS: Aspirin, heparin, normal saline at 100, Maalox, amlodipine 10, Protonix, Rocephin 1 g, Tylenol, Xanax, Xopenex, Zofran. ASSESSMENT: 1. Severe life-threatening hyponatremia, clinically dehydrated. 2. Right-sided chest pain, shortness of breath, cough, rule out right-sided pneumonia. 3. Chronic anemia. 4. Coronary artery disease, congestive heart failure, severe cardiomyopathy, decreased ejection fraction. 4. Severe hypertension. 5. [id number] diabetes mellitus. 6. History of gastrointestinal bleed, Dieulafoy lesion, partial colectomy. 7. Chronic kidney disease stage IV. PLAN: 1. Discontinue normal saline, the patient has received normal saline for at least 20 hours. 2. Start 3% saline at 20 mL/hour. 3. Repeat chest x-ray, rule out right-sided pneumonia. 4. Agree with empiric antibiotics. 5. Dose all antibiotics for creatinine clearance 10-30 mL/minute. 6. Monitor electrolytes closely. 7. Discontinue 3% saline for any sodium greater than 126. Case discussed with Dr. Colbert, case discussed with Dr. Morataya, case discussed with ICU residents, case discussed with ICU nursing staff. More than 35 minutes I spent in the care of this critically ill patient. Frieda Rodriguez MD
[2018-03-22] MEDS: Promethazine DM 6.25 mg-15 mg/5 ml Syrup PO SCH ×3 (04:45→21:01)
[2018-03-22] MEDS: Levalbuterol 0.63 MG/3 ML Inhal Soln UD IH SCH ×3 (07:02→19:05)
[2018-03-22 07:05] LABS: BASO # 0.02 K/mm3 (0.0-2.0); BASO % 0.2 % (0.0-3.0); EOS # 0.1 (0.0-0.7); EOS % 0.7 % (1.5-5.0); GRAN # 5.99 (1.4-6.5); HEMOGLOBIN 10.2 g/dL (12.0-16.0); LYMPH # 1.8 (1.2-3.4); LYMPH % 18.9 % (22.0-35.0); MEAN CORPUSCULAR HGB CONC 35.9 g/dl (31.0-37.0); MEAN PLATELET VOLUME 10.1 fl (7.0-11.0); MONO # 1.8 (0.1-0.6); MONO % 18.2 % (1.0-6.0); RBC 3.19 10^6/uL (3.5-6.1); RED CELL DISTRIBUTION WIDTH 15.2 % (11.5-14.5); WHITE BLOOD COUNT 9.7 10^3/ul (4.5-11.0)
[2018-03-22 07:34] LABS: ALB/GLOB RATIO 1.1 (1.1-1.8); ALBUMIN 3.4 g/dL (3.0-4.8); CALCIUM 8.3 mg/dL (8.4-10.5)
--- NOTE | 2018-03-22 07:53 | CP.CCUPN ---
<Carlos Holloway - Last Filed: 03/22/18 11:36> CCU Subjective - Physician Review Subjective (Free Text): Carlos Holloway DO, PGY-1 ICU Progress Note for Dr. Pedro Barnett Patient was seen and examined at bedside this AM. She reports feeling better since admission to the hospital. She states that her OSPINA, chills, and other flu- like symptoms have resolved. She denies nausea/vomiting/diarrhea, CP, and SOB. CCU Objective - Vital Signs / Intake & Output Vital Signs (Last 4 hours): Vital Signs Temp Pulse Resp BP Pulse Ox 03/22/18 07:30 61 21 95 03/22/18 07:20 59 L 23 95 03/22/18 07:10 59 L 18 95 03/22/18 07:00 60 19 125/57 L 93 L 03/22/18 06:50 59 L 20 93 L 03/22/18 06:40 58 L 19 94 L 03/22/18 06:30 57 L 31 H 94 L 03/22/18 06:20 58 L 20 94 L 03/22/18 06:10 60 22 93 L 03/22/18 06:00 62 25 H 116/48 L 94 L 03/22/18 05:50 60 19 95 03/22/18 05:40 60 20 95 03/22/18 05:30 63 29 H 94 L 03/22/18 05:20 61 32 H 03/22/18 05:10 57 L 39 H 94 L 03/22/18 05:00 55 L 25 H 145/59 L 96 03/22/18 04:50 55 L 27 H 95 03/22/18 04:40 55 L 29 H 96 03/22/18 04:30 55 L 24 95 03/22/18 04:20 59 L 21 94 L 03/22/18 04:10 56 L 18 94 L 03/22/18 04:00 97.8 F 60 20 137/38 L 95 Intake and Output (Last 8hrs): Intake & Output 03/21/18 03/22/18 03/22/18 22:59 06:59 14:59 Intake Total 1480 390 Output Total 850 300 Balance 630 90 Weight 124 lb 1 oz Intake: IV 780 240 Right Antecubital 780 240 Oral 700 150 Output: Urine 850 300 Urine, Voided 850 300 Other: # Voids Urine, Voided 2 - Physical Exam Head: Positive for: Atraumatic, Normocephalic Pupils: Positive for: PERRL Extroacular Muscles: Positive for: EOMI Conjunctiva: Positive for: Normal Mouth: Positive for: Moist Mucous Membranes Pharnyx: Positive for: Normal. Negative for: ERYTHEMA, EXUDATE Neck: Positive for: Normal Range of Motion. Negative for: JVD Respiratory/Chest: Positive for: Rales (faint rales on bases b/l R > L). Negative for: Respiratory Distress, Accessory Muscle Use, Wheezes, Rhonchi Cardiovascular: Positive for: Regular Rate and Rhythm, Normal S1, S2. Negative for: Murmurs, Rub, Gallop Abdomen: Positive for: Scars (surgical scar c/w prior hemicolectomy). Negative for: Tenderness, Distention, Rebound Upper Extremity: Positive for: Normal Inspection. Negative for: Cyanosis, Edema Lower Extremity: Positive for: Normal Inspection, NORMAL PULSES. Negative for: Edema Neurological: Positive for: GCS=15, Speech Normal Skin: Positive for: Warm, Dry, Normal Color. Negative for: Rashes Psychiatric: Positive for: Alert, Oriented x 3 - Medications Active Medications: Active Medications Generic Name Dose Route Start Last Admin Trade Name Freq PRN Reason Stop Dose Admin Acetaminophen 650 mg 03/20/18 18:27 Tylenol 325mg Tab PO Q6H PRN Pain, moderate (4-7) Al Hydrox/Mg Hydrox/Simethicone 5 ml 03/20/18 18:38 Maalox Plus 30 Ml PO Q4H PRN Heartburn Alprazolam 0.25 mg 03/20/18 18:31 03/21/18 21:03 Xanax PO 03/27/18 18:32 0.25 mg Q12H PRN Administration Anxiety Protocol Amlodipine Besylate 10 mg 03/21/18 10:00 03/21/18 09:46 Norvasc PO 10 mg DAILY JAK Administration Aspirin 81 mg 03/21/18 10:00 03/21/18 09:46 Aspirin Chewable PO 81 mg DAILY JAK Administration Heparin Sodium (Porcine) 5,000 units 03/20/18 22:00 03/22/18 05:10 Heparin SC 5,000 units Q8 JAK Administration Protocol Ceftriaxone Sodium 1 gm in 100 mls @ 100 mls/hr 03/21/18 10:00 03/21/18 09:47 Rocephin 1 Gram Ivpb IVPB 100 mls/hr DAILY JAK Administration Protocol Sodium Chloride 500 mls @ 20 mls/hr 03/20/18 19:15 03/21/18 13:55 Hypertonic Saline 3% IV 20 mls/hr .Q24H JAK Administration Insulin Human Regular 0 units 03/20/18 22:00 03/21/18 22:02 Humulin R High SC Not Given ACHS JAK Protocol Levalbuterol HCl 0.63 mg 03/20/18 20:00 03/22/18 07:02 Xopenex IH 0.63 mg TIDRESP JAK Administration Ondansetron HCl 4 mg 03/20/18 17:17 Zofran Inj IVP Q6H PRN Nausea/Vomiting Pantoprazole Sodium 40 mg 03/22/18 07:30 Protonix Ec Tab PO ACB JAK Promethazine HCl/Dextromethorphan 5 ml 03/21/18 19:45 03/22/18 04:45 Phenergan Dm Syrup PO 5 ml Q8H JAK Administration - Patient Studies Lab Studies: Microbiology Studies 03/20/18 15:30 Blood Culture - Preliminary Blood NO GROWTH AFTER 24 HOURS Lab Studies 03/22/18 03/22/18 03/22/18 Range/Units 05:40 05:40 00:45 WBC 9.7 (4.5-11.0) 10^3/ul RBC 3.19 L (3.5-6.1) 10^6/uL Hgb 10.2 L (12.0-16.0) g/dL Hct 28.4 L (36.0-48.0) % MCV 89.0 (80.0-105.0) fl MCH 32.0 (25.0-35.0) pg MCHC 35.9 (31.0-37.0) g/dl RDW 15.2 H (11.5-14.5) % Plt Count 144 (120.0-450.0) 10^3/uL MPV 10.1 (7.0-11.0) fl Gran % 62.0 (50.0-68.0) % Lymph % (Auto) 18.9 L (22.0-35.0) % Newberry % (Auto) 18.2 H (1.0-6.0) % Eos % (Auto) 0.7 L (1.5-5.0) % Baso % (Auto) 0.2 (0.0-3.0) % Gran # 5.99 (1.4-6.5) Lymph # (Auto) 1.8 (1.2-3.4) Newberry # (Auto) 1.8 H (0.1-0.6) Eos # (Auto) 0.1 (0.0-0.7) Baso # (Auto) 0.02 (0.0-2.0) K/mm3 Sodium 123 L 119 L* (132-148) mmol/L Potassium 5.0 5.0 (3.6-5.0) mmol/L Chloride 92 L 90 L (98-107) mmol/L Carbon Dioxide 20 L 18 L (21-33) mmol/L Anion Gap 16 16 (10-20) BUN 55 H 57 H (7-21) mg/dL Creatinine 1.7 H 1.8 H (0.7-1.2) mg/dl Est GFR ( Amer) 35 33 Est GFR (Non-Af Amer) 29 27 POC Glucose (mg/dL) (65-110) mg/dL Random Glucose 124 H 154 H (70-110) mg/dL Calcium 8.3 L 8.5 (8.4-10.5) mg/dL Phosphorus 4.2 (2.5-4.5) mg/dL Magnesium 2.3 H (1.7-2.2) mg/dL Total Bilirubin 0.8 (0.2-1.3) mg/dL AST 31 (14-36) U/L ALT 30 (7-56) U/L Alkaline Phosphatase 74 (38-126) U/L Total Protein 6.3 (5.8-8.3) g/dL Albumin 3.4 (3.0-4.8) g/dL Globulin 2.9 gm/dL Albumin/Globulin Ratio 1.1 (1.1-1.8) 03/21/18 03/21/18 03/21/18 Range/Units 22:01 21:01 16:44 WBC (4.5-11.0) 10^3/ul RBC (3.5-6.1) 10^6/uL Hgb (12.0-16.0) g/dL Hct (36.0-48.0) % MCV (80.0-105.0) fl MCH (25.0-35.0) pg MCHC (31.0-37.0) g/dl RDW (11.5-14.5) % Plt Count (120.0-450.0) 10^3/uL MPV (7.0-11.0) fl Gran % (50.0-68.0) % Lymph % (Auto) (22.0-35.0) % Newberry % (Auto) (1.0-6.0) % Eos % (Auto) (1.5-5.0) % Baso % (Auto) (0.0-3.0) % Gran # (1.4-6.5) Lymph # (Auto) (1.2-3.4) Newberry # (Auto) (0.1-0.6) Eos # (Auto) (0.0-0.7) Baso # (Auto) (0.0-2.0) K/mm3 Sodium 119 L* 117 L* (132-148) mmol/L Potassium 5.2 H 5.3 H (3.6-5.0) mmol/L Chloride 88 L 86 L (98-107) mmol/L Carbon Dioxide 17 L 18 L (21-33) mmol/L Anion Gap 19 18 (10-20) BUN 56 H 56 H (7-21) mg/dL Creatinine 1.8 H 1.7 H (0.7-1.2) mg/dl Est GFR ( Amer) 33 35 Est GFR (Non-Af Amer) 27 29 POC Glucose (mg/dL) 211 H (65-110) mg/dL Random Glucose 211 H 239 H (70-110) mg/dL Calcium 8.7 8.6 (8.4-10.5) mg/dL Phosphorus (2.5-4.5) mg/dL Magnesium (1.7-2.2) mg/dL Total Bilirubin (0.2-1.3) mg/dL AST (14-36) U/L ALT (7-56) U/L Alkaline Phosphatase (38-126) U/L Total Protein (5.8-8.3) g/dL Albumin (3.0-4.8) g/dL Globulin gm/dL Albumin/Globulin Ratio (1.1-1.8) 03/21/18 03/21/18 03/21/18 Range/Units 16:08 11:55 11:20 WBC (4.5-11.0) 10^3/ul RBC (3.5-6.1) 10^6/uL Hgb (12.0-16.0) g/dL Hct (36.0-48.0) % MCV (80.0-105.0) fl MCH (25.0-35.0) pg MCHC (31.0-37.0) g/dl RDW (11.5-14.5) % Plt Count (120.0-450.0) 10^3/uL MPV (7.0-11.0) fl Gran % (50.0-68.0) % Lymph % (Auto) (22.0-35.0) % Newberry % (Auto) (1.0-6.0) % Eos % (Auto) (1.5-5.0) % Baso % (Auto) (0.0-3.0) % Gran # (1.4-6.5) Lymph # (Auto) (1.2-3.4) Newberry # (Auto) (0.1-0.6) Eos # (Auto) (0.0-0.7) Baso # (Auto) (0.0-2.0) K/mm3 Sodium 115 L* (132-148) mmol/L Potassium 5.0 (3.6-5.0) mmol/L Chloride 85 L (98-107) mmol/L Carbon Dioxide 18 L (21-33) mmol/L Anion Gap 18 (10-20) BUN 54 H (7-21) mg/dL Creatinine 1.6 H (0.7-1.2) mg/dl Est GFR ( Amer) 37 Est GFR (Non-Af Amer) 31 POC Glucose (mg/dL) 263 H 242 H (65-110) mg/dL Random Glucose 248 H (70-110) mg/dL Calcium 8.4 (8.4-10.5) mg/dL Phosphorus (2.5-4.5) mg/dL Magnesium (1.7-2.2) mg/dL Total Bilirubin (0.2-1.3) mg/dL AST (14-36) U/L ALT (7-56) U/L Alkaline Phosphatase (38-126) U/L Total Protein (5.8-8.3) g/dL Albumin (3.0-4.8) g/dL Globulin gm/dL Albumin/Globulin Ratio (1.1-1.8) 03/21/18 Range/Units 07:30 WBC (4.5-11.0) 10^3/ul RBC (3.5-6.1) 10^6/uL Hgb (12.0-16.0) g/dL Hct (36.0-48.0) % MCV (80.0-105.0) fl MCH (25.0-35.0) pg MCHC (31.0-37.0) g/dl RDW (11.5-14.5) % Plt Count (120.0-450.0) 10^3/uL MPV (7.0-11.0) fl Gran % (50.0-68.0) % Lymph % (Auto) (22.0-35.0) % Newberry % (Auto) (1.0-6.0) % Eos % (Auto) (1.5-5.0) % Baso % (Auto) (0.0-3.0) % Gran # (1.4-6.5) Lymph # (Auto) (1.2-3.4) Newberry # (Auto) (0.1-0.6) Eos # (Auto) (0.0-0.7) Baso # (Auto) (0.0-2.0) K/mm3 Sodium 115 L* (132-148) mmol/L Potassium 4.8 (3.6-5.0) mmol/L Chloride 85 L (98-107) mmol/L Carbon Dioxide 18 L (21-33) mmol/L Anion Gap 18 (10-20) BUN 54 H (7-21) mg/dL Creatinine 1.7 H (0.7-1.2) mg/dl Est GFR ( Amer) 35 Est GFR (Non-Af Amer) 29 POC Glucose (mg/dL) (65-110) mg/dL Random Glucose 171 H (70-110) mg/dL Calcium 8.5 (8.4-10.5) mg/dL Phosphorus (2.5-4.5) mg/dL Magnesium (1.7-2.2) mg/dL Total Bilirubin (0.2-1.3) mg/dL AST (14-36) U/L ALT (7-56) U/L Alkaline Phosphatase (38-126) U/L Total Protein (5.8-8.3) g/dL Albumin (3.0-4.8) g/dL Globulin gm/dL Albumin/Globulin Ratio (1.1-1.8) Laboratory Results - last 24 hr 03/21/18 03/21/18 03/21/18 07:30 11:20 11:55 WBC RBC Hgb Hct MCV MCH MCHC RDW Plt Count MPV Gran % Lymph % (Auto) Newberry % (Auto) Eos % (Auto) Baso % (Auto) Gran # Lymph # (Auto) Newberry # (Auto) Eos # (Auto) Baso # (Auto) Sodium 115 L* 115 L* Potassium 4.8 5.0 Chloride 85 L 85 L Carbon Dioxide 18 L 18 L Anion Gap 18 18 BUN 54 H 54 H Creatinine 1.7 H 1.6 H Est GFR ( Amer) 35 37 Est GFR (Non-Af Amer) 29 31 POC Glucose (mg/dL) 242 H Random Glucose 171 H 248 H Calcium 8.5 8.4 Phosphorus Magnesium Total Bilirubin AST ALT Alkaline Phosphatase Total Protein Albumin Globulin Albumin/Globulin Ratio 03/21/18 03/21/18 03/21/18 16:08 16:44 21:01 WBC RBC Hgb Hct MCV MCH MCHC RDW Plt Count MPV Gran % Lymph % (Auto) Newberry % (Auto) Eos % (Auto) Baso % (Auto) Gran # Lymph # (Auto) Newberry # (Auto) Eos # (Auto) Baso # (Auto) Sodium 117 L* 119 L* Potassium 5.3 H 5.2 H Chloride 86 L 88 L Carbon Dioxide 18 L 17 L Anion Gap 18 19 BUN 56 H 56 H Creatinine 1.7 H 1.8 H Est GFR ( Amer) 35 33 Est GFR (Non-Af Amer) 29 27 POC Glucose (mg/dL) 263 H Random Glucose 239 H 211 H Calcium 8.6 8.7 Phosphorus Magnesium Total Bilirubin AST ALT Alkaline Phosphatase Total Protein Albumin Globulin Albumin/Globulin Ratio 03/21/18 03/22/18 03/22/18 22:01 00:45 05:40 WBC 9.7 RBC 3.19 L Hgb 10.2 L Hct 28.4 L MCV 89.0 MCH 32.0 MCHC 35.9 RDW 15.2 H Plt Count 144 MPV 10.1 Gran % 62.0 Lymph % (Auto) 18.9 L Newberry % (Auto) 18.2 H Eos % (Auto) 0.7 L Baso % (Auto) 0.2 Gran # 5.99 Lymph # (Auto) 1.8 Newberry # (Auto) 1.8 H Eos # (Auto) 0.1 Baso # (Auto) 0.02 Sodium 119 L* Potassium 5.0 Chloride 90 L Carbon Dioxide 18 L Anion Gap 16 BUN 57 H Creatinine 1.8 H Est GFR ( Amer) 33 Est GFR (Non-Af Amer) 27 POC Glucose (mg/dL) 211 H Random Glucose 154 H Calcium 8.5 Phosphorus Magnesium Total Bilirubin AST ALT Alkaline Phosphatase Total Protein Albumin Globulin Albumin/Globulin Ratio 03/22/18 05:40 WBC RBC Hgb Hct MCV MCH MCHC RDW Plt Count MPV Gran % Lymph % (Auto) Newberry % (Auto) Eos % (Auto) Baso % (Auto) Gran # Lymph # (Auto) Newberry # (Auto) Eos # (Auto) Baso # (Auto) Sodium 123 L Potassium 5.0 Chloride 92 L Carbon Dioxide 20 L Anion Gap 16 BUN 55 H Creatinine 1.7 H Est GFR ( Amer) 35 Est GFR (Non-Af Amer) 29 POC Glucose (mg/dL) Random Glucose 124 H Calcium 8.3 L Phosphorus 4.2 Magnesium 2.3 H Total Bilirubin 0.8 AST 31 ALT 30 Alkaline Phosphatase 74 Total Protein 6.3 Albumin 3.4 Globulin 2.9 Albumin/Globulin Ratio 1.1 Fingerstick Blood Sugar Results: 211 Review of Systems - Constitutional Constitutional: absent: Fever, Chills - EENT Eyes: absent: Change in Vision - Cardiovascular Cardiovascular: absent: Chest Pain, Dyspnea - Respiratory Respiratory: absent: Cough, Dyspnea - Gastrointestinal Gastrointestinal: absent: Abdominal Pain, Nausea, Vomiting - Genitourinary Genitourinary: absent: Change in Urinary Stream Critical Care Progress Note - Nutrition Nutrition: Nutrition Category Date Time Status Consistent Carbohydrate [DIET] Diets 03/20/18 Dinner Ordered Assessment/Plan - Assessment and Plan (Free Text) Assessment: 82 yo F with PMH of CKD, cirrhosis, CHF, HTN, DM2, CAD (s/p stents), COPD, and GI bleed admitted to ICU for severe hyponatremia of 111 on admission. She was initially started on NS @ 60 cc/hr, increased to 100 cc/hr, and then started on 3% 20 cc/hr. Now her Na has risen to 119. Plan: Neuro: -Patient continues to be AA/o x 3, is moving extremities past midline and shows no neurological deficits -She states her OSPINA has resolved, flu like symptoms improved -Reorient patient as necessary Cardio: -RRR, normotensive overnight -Continue to monitor HR closely -Maintain MAP>65 Pulm: -Faint rales auscultated b/l, R > L -CXR obtained yesterday with bilateral infiltrates R > L -May be 2/2 volume overload (given hx of CHF) vs SIADH syndrome -Afebrile, leukocytosis improving, cough improving -Low suspicion for infectious etiology at this point -Patient SpO2 > 90% on 2L NC, maintain -Additional O2 NC PRN GI: -Tolerating HHD without nausea/vomiting -Protonix for GI PPX /Nephro: -Severe hyponatremia with Na of 111 identified in ED -Overnight, Na was increased to 119 yesterday evening, 123 at 0540 this AM and is 122 at 1130 this AM -Continue 3% 20 cc/hr and continue to monitor closely with Q4h BMP -UA with large leukocyte esterase and WBC, treating for UTI Endocrinology: -Blood sugar has been <190 since admission to ICU, continue to maintain euglycemia -Continue ISS, ACHS fingerstick Heme/Onc: -H/H stable at 10.2/28.4 -No signs of HD compromise. -Continue monitoring H/H ID: -Arrived in ED with flu-like symptoms -Rapid flu antigen negative -Procal 0.23 -UA with large leukocyte esterase and WBC -Blood cx negative to date, urine culture positive for GNR -Day 3 of rocephin 1 g daily -Infiltrates on CXR b/l R > L -Low suspicion for PNA given WBC downtrending from 9.7 to 8.4, afebrile, and absence of cough -Will continue to monitor DVT/GI PPX: Sc heparin and protonix Full Code Monitor in MICU Case and plan reviewed and discussed with my attending Dr. Pedro Holloway, DO IM Resident PGY-1 <Johnny Barnett - Last Filed: 03/22/18 13:32> CCU Objective - Vital Signs / Intake & Output Vital Signs (Last 4 hours): Vital Signs Pulse Resp BP Pulse Ox 03/22/18 11:00 57 L 17 97 03/22/18 10:50 54 L 15 97 03/22/18 10:40 57 L 16 95 03/22/18 10:30 58 L 19 95 03/22/18 10:20 55 L 20 96 03/22/18 10:10 55 L 17 97 03/22/18 10:00 56 L 18 96 03/22/18 09:50 62 24 95 03/22/18 09:41 149/54 L 03/22/18 09:40 60 20 99 Intake and Output (Last 8hrs): Intake & Output 03/21/18 03/22/18 03/22/18 22:59 06:59 14:59 Intake Total 1480 390 Output Total 850 300 Balance 630 90 Weight 56.274 kg Intake: IV 780 240 Right Antecubital 780 240 Oral 700 150 Output: Urine 850 300 Urine, Voided 850 300 Other: # Voids Urine, Voided 2 - Medications Active Medications: Active Medications Generic Name Dose Route Start Last Admin Trade Name Freq PRN Reason Stop Dose Admin Acetaminophen 650 mg 03/20/18 18:27 Tylenol 325mg Tab PO Q6H PRN Pain, moderate (4-7) Al Hydrox/Mg Hydrox/Simethicone 5 ml 03/20/18 18:38 Maalox Plus 30 Ml PO Q4H PRN Heartburn Alprazolam 0.25 mg 03/20/18 18:31 03/21/18 21:03 Xanax PO 03/27/18 18:32 0.25 mg Q12H PRN Administration Anxiety Protocol Amlodipine Besylate 10 mg 03/21/18 10:00 03/22/18 09:41 Norvasc PO 10 mg DAILY JAK Administration Aspirin 81 mg 03/21/18 10:00 03/22/18 09:40 Aspirin Chewable PO 81 mg DAILY JAK Administration Furosemide 40 mg 03/22/18 12:30 Lasix IVP DAILY JAK Heparin Sodium (Porcine) 5,000 units 03/20/18 22:00 03/22/18 05:10 Heparin SC 5,000 units Q8 JAK Administration Protocol Ceftriaxone Sodium 1 gm in 100 mls @ 100 mls/hr 03/21/18 10:00 03/22/18 09:42 Rocephin 1 Gram Ivpb IVPB 03/25/18 10:59 100 mls/hr DAILY JAK Administration Protocol Sodium Chloride 500 mls @ 30 mls/hr 03/22/18 13:14 Hypertonic Saline 3% IV .[id number] [facility] Insulin Human Regular 0 units 03/20/18 22:00 03/22/18 11:58 Humulin R High SC 10 units ACHS JAK Administration Protocol Levalbuterol HCl 0.63 mg 03/20/18 20:00 03/22/18 13:13 Xopenex IH 0.63 mg TIDRESP [facility] Administration Ondansetron HCl 4 mg 03/20/18 17:17 Zofran Inj IVP Q6H PRN Nausea/Vomiting Pantoprazole Sodium 40 mg 03/22/18 07:30 03/22/18 08:12 Protonix Ec Tab PO 40 mg ACB JAK Administration Promethazine HCl/Dextromethorphan 5 ml 03/21/18 19:45 03/22/18 12:02 Phenergan Dm Syrup PO 5 ml Q8H JAK Administration - Patient Studies Lab Studies: Microbiology Studies 03/20/18 19:30 Urine Culture - Preliminary Urine,Clean Catch Gram Negative Beka 03/20/18 15:30 Blood Culture - Preliminary Blood NO GROWTH AFTER 24 HOURS Lab Studies 03/22/18 03/22/18 03/22/18 Range/Units 11:21 11:00 07:21 WBC (4.5-11.0) 10^3/ul RBC (3.5-6.1) 10^6/uL Hgb (12.0-16.0) g/dL Hct (36.0-48.0) % MCV (80.0-105.0) fl MCH (25.0-35.0) pg MCHC (31.0-37.0) g/dl RDW (11.5-14.5) % Plt Count (120.0-450.0) 10^3/uL MPV (7.0-11.0) fl Gran % (50.0-68.0) % Lymph % (Auto) (22.0-35.0) % [place]berry % (Auto) (1.0-6.0) % Eos % (Auto) (1.5-5.0) % Baso % (Auto) (0.0-3.0) % Gran # (1.4-6.5) Lymph # (Auto) (1.2-3.4) Newberry # (Auto) (0.1-0.6) Eos # (Auto) (0.0-0.7) Baso # (Auto) (0.0-2.0) K/mm3 Sodium 122 L (132-148) mmol/L Potassium 5.3 H (3.6-5.0) mmol/L Chloride 94 L (98-107) mmol/L Carbon Dioxide 17 L (21-33) mmol/L Anion Gap 16 (10-20) BUN 56 H (7-21) mg/dL Creatinine 1.6 H (0.7-1.2) mg/dl Est GFR ( Amer) 37 Est GFR (Non-Af Amer) 31 POC Glucose (mg/dL) 312 H 132 H (65-110) mg/dL Random Glucose 260 H (70-110) mg/dL Calcium 8.3 L (8.4-10.5) mg/dL Phosphorus (2.5-4.5) mg/dL Magnesium (1.7-2.2) mg/dL Total Bilirubin (0.2-1.3) mg/dL AST (14-36) U/L ALT (7-56) U/L Alkaline Phosphatase (38-126) U/L Total Protein (5.8-8.3) g/dL Albumin (3.0-4.8) g/dL Globulin gm/dL Albumin/Globulin Ratio (1.1-1.8) 03/22/18 03/22/18 03/22/18 Range/Units 05:40 05:40 00:45 WBC 9.7 (4.5-11.0) 10^3/ul RBC 3.19 L (3.5-6.1) 10^6/uL Hgb 10.2 L (12.0-16.0) g/dL Hct 28.4 L (36.0-48.0) % MCV 89.0 (80.0-105.0) fl MCH 32.0 (25.0-35.0) pg MCHC 35.9 (31.0-37.0) g/dl RDW 15.2 H (11.5-14.5) % Plt Count 144 (120.0-450.0) 10^3/uL MPV 10.1 (7.0-11.0) fl Gran % 62.0 (50.0-68.0) % Lymph % (Auto) 18.9 L (22.0-35.0) % Newberry % (Auto) 18.2 H (1.0-6.0) % Eos % (Auto) 0.7 L (1.5-5.0) % Baso % (Auto) 0.2 (0.0-3.0) % Gran # 5.99 (1.4-6.5) Lymph # (Auto) 1.8 (1.2-3.4) Newberry # (Auto) 1.8 H (0.1-0.6) Eos # (Auto) 0.1 (0.0-0.7) Baso # (Auto) 0.02 (0.0-2.0) K/mm3 Sodium 123 L 119 L* (132-148) mmol/L Potassium 5.0 5.0 (3.6-5.0) mmol/L Chloride 92 L 90 L (98-107) mmol/L Carbon Dioxide 20 L 18 L (21-33) mmol/L Anion Gap 16 16 (10-20) BUN 55 H 57 H (7-21) mg/dL Creatinine 1.7 H 1.8 H (0.7-1.2) mg/dl Est GFR ( Amer) 35 33 Est GFR (Non-Af Amer) 29 27 POC Glucose (mg/dL) (65-110) mg/dL Random Glucose 124 H 154 H (70-110) mg/dL Calcium 8.3 L 8.5 (8.4-10.5) mg/dL Phosphorus 4.2 (2.5-4.5) mg/dL Magnesium 2.3 H (1.7-2.2) mg/dL Total Bilirubin 0.8 (0.2-1.3) mg/dL AST 31 (14-36) U/L ALT 30 (7-56) U/L Alkaline Phosphatase 74 (38-126) U/L Total Protein 6.3 (5.8-8.3) g/dL Albumin 3.4 (3.0-4.8) g/dL Globulin 2.9 gm/dL Albumin/Globulin Ratio 1.1 (1.1-1.8) 03/21/18 03/21/18 03/21/18 Range/Units 22:01 21:01 16:44 WBC (4.5-11.0) 10^3/ul RBC (3.5-6.1) 10^6/uL Hgb (12.0-16.0) g/dL Hct (36.0-48.0) % MCV (80.0-105.0) fl MCH (25.0-35.0) pg MCHC (31.0-37.0) g/dl RDW (11.5-14.5) % Plt Count (120.0-450.0) 10^3/uL MPV (7.0-11.0) fl Gran % (50.0-68.0) % Lymph % (Auto) (22.0-35.0) % Newberry % (Auto) (1.0-6.0) % Eos % (Auto) (1.5-5.0) % Baso % (Auto) (0.0-3.0) % Gran # (1.4-6.5) Lymph # (Auto) (1.2-3.4) Newberry # (Auto) (0.1-0.6) Eos # (Auto) (0.0-0.7) Baso # (Auto) (0.0-2.0) K/mm3 Sodium 119 L* 117 L* (132-148) mmol/L Potassium 5.2 H 5.3 H (3.6-5.0) mmol/L Chloride 88 L 86 L (98-107) mmol/L Carbon Dioxide 17 L 18 L (21-33) mmol/L Anion Gap 19 18 (10-20) BUN 56 H 56 H (7-21) mg/dL Creatinine 1.8 H 1.7 H (0.7-1.2) mg/dl Est GFR ( Amer) 33 35 Est GFR (Non-Af Amer) 27 29 POC Glucose (mg/dL) 211 H (65-110) mg/dL Random Glucose 211 H 239 H (70-110) mg/dL Calcium 8.7 8.6 (8.4-10.5) mg/dL Phosphorus (2.5-4.5) mg/dL Magnesium (1.7-2.2) mg/dL Total Bilirubin (0.2-1.3) mg/dL AST (14-36) U/L ALT (7-56) U/L Alkaline Phosphatase (38-126) U/L Total Protein (5.8-8.3) g/dL Albumin (3.0-4.8) g/dL Globulin gm/dL Albumin/Globulin Ratio (1.1-1.8) 03/21/18 03/21/18 Range/Units 16:08 11:55 WBC (4.5-11.0) 10^3/ul RBC (3.5-6.1) 10^6/uL Hgb (12.0-16.0) g/dL Hct (36.0-48.0) % MCV (80.0-105.0) fl MCH (25.0-35.0) pg MCHC (31.0-37.0) g/dl RDW (11.5-14.5) % Plt Count (120.0-450.0) 10^3/uL MPV (7.0-11.0) fl Gran % (50.0-68.0) % Lymph % (Auto) (22.0-35.0) % Newberry % (Auto) (1.0-6.0) % Eos % (Auto) (1.5-5.0) % Baso % (Auto) (0.0-3.0) % Gran # (1.4-6.5) Lymph # (Auto) (1.2-3.4) Newberry # (Auto) (0.1-0.6) Eos # (Auto) (0.0-0.7) Baso # (Auto) (0.0-2.0) K/mm3 Sodium (132-148) mmol/L Potassium (3.6-5.0) mmol/L Chloride (98-107) mmol/L Carbon Dioxide (21-33) mmol/L Anion Gap (10-20) BUN (7-21) mg/dL Creatinine (0.7-1.2) mg/dl Est GFR ( Amer) Est GFR (Non-Af Amer) POC Glucose (mg/dL) 263 H 242 H (65-110) mg/dL Random Glucose (70-110) mg/dL Calcium (8.4-10.5) mg/dL Phosphorus (2.5-4.5) mg/dL Magnesium (1.7-2.2) mg/dL Total Bilirubin (0.2-1.3) mg/dL AST (14-36) U/L ALT (7-56) U/L Alkaline Phosphatase (38-126) U/L Total Protein (5.8-8.3) g/dL Albumin (3.0-4.8) g/dL Globulin gm/dL Albumin/Globulin Ratio (1.1-1.8) Laboratory Results - last 24 hr 03/21/18 03/21/18 03/21/18 11:55 16:08 16:44 WBC RBC Hgb Hct MCV MCH MCHC RDW Plt Count MPV Gran % Lymph % (Auto) Newberry % (Auto) Eos % (Auto) Baso % (Auto) Gran # Lymph # (Auto) Newberry # (Auto) Eos # (Auto) Baso # (Auto) Sodium 117 L* Potassium 5.3 H Chloride 86 L Carbon Dioxide 18 L Anion Gap 18 BUN 56 H Creatinine 1.7 H Est GFR ( Amer) 35 Est GFR (Non-Af Amer) 29 POC Glucose (mg/dL) 242 H 263 H Random Glucose 239 H Calcium 8.6 Phosphorus Magnesium Total Bilirubin AST ALT Alkaline Phosphatase Total Protein Albumin Globulin Albumin/Globulin Ratio 03/21/18 03/21/18 03/22/18 21:01 22:01 00:45 WBC RBC Hgb Hct MCV MCH MCHC RDW Plt Count MPV Gran % Lymph % (Auto) Newberry % (Auto) Eos % (Auto) Baso % (Auto) Gran # Lymph # (Auto) Newberry # (Auto) Eos # (Auto) Baso # (Auto) Sodium 119 L* 119 L* Potassium 5.2 H 5.0 Chloride 88 L 90 L Carbon Dioxide 17 L 18 L Anion Gap 19 16 BUN 56 H 57 H Creatinine 1.8 H 1.8 H Est GFR ( Amer) 33 33 Est GFR (Non-Af Amer) 27 27 POC Glucose (mg/dL) 211 H Random Glucose 211 H 154 H Calcium 8.7 8.5 Phosphorus Magnesium Total Bilirubin AST ALT Alkaline Phosphatase Total Protein Albumin Globulin Albumin/Globulin Ratio 03/22/18 03/22/18 03/22/18 05:40 05:40 07:21 WBC 9.7 RBC 3.19 L Hgb 10.2 L Hct 28.4 L MCV 89.0 MCH 32.0 MCHC 35.9 RDW 15.2 H Plt Count 144 MPV 10.1 Gran % 62.0 Lymph % (Auto) 18.9 L [place]berry % (Auto) 18.2 H Eos % (Auto) 0.7 L Baso % (Auto) 0.2 Gran # 5.99 Lymph # (Auto) 1.8 [place]berry # (Auto) 1.8 H Eos # (Auto) 0.1 Baso # (Auto) 0.02 Sodium 123 L Potassium 5.0 Chloride 92 L Carbon Dioxide 20 L Anion Gap 16 BUN 55 H Creatinine 1.7 H Est GFR ( Amer) 35 Est GFR (Non-Af Amer) 29 POC Glucose (mg/dL) 132 H Random Glucose 124 H Calcium 8.3 L Phosphorus 4.2 Magnesium 2.3 H Total Bilirubin 0.8 AST 31 ALT 30 Alkaline Phosphatase 74 Total Protein 6.3 Albumin 3.4 Globulin 2.9 Albumin/Globulin Ratio 1.1 03/22/18 03/22/18 11:00 11:21 WBC RBC Hgb Hct MCV MCH MCHC RDW Plt Count MPV Gran % Lymph % (Auto) Newberry % (Auto) Eos % (Auto) Baso % (Auto) Gran # Lymph # (Auto) [place] # (Auto) Eos # (Auto) Baso # (Auto) Sodium 122 L Potassium 5.3 H Chloride 94 L Carbon Dioxide 17 L Anion Gap 16 BUN 56 H Creatinine 1.6 H Est GFR ( Amer) 37 Est GFR (Non-Af Amer) 31 POC Glucose (mg/dL) 312 H Random Glucose 260 H Calcium 8.3 L Phosphorus Magnesium Total Bilirubin AST ALT Alkaline Phosphatase Total Protein Albumin Globulin Albumin/Globulin Ratio Critical Care Progress Note - Nutrition Nutrition: Nutrition Category Date Time Status Consistent Carbohydrate [DIET] Diets 03/20/18 Dinner Ordered Addendum Addendum: 03/22/18 13:31 ICU Attending Addendum Patient seen and examined. Case reviewed on round with housestaff. Agree with resident note above with the following additions/exceptions: 82F with PMHx of PNA, CKD, CHF, presented with malaise, fatigue, and h yponatremia, Na 111. Patient currently afebrile, HD stable, Low serum Na and Serum Osm Urine Na 39 uOsm 321 Hypotonic hypernatremia Unclear if hypovolemic which would suggest directic induced vs euvolemic SIADH NS given gently overnight, Na moved up slightly 3% started yesterday @ 20cc/hr however Na only slightly over last 12 hours will increase to 30cc/hr for now Nephro board hypoNa management as per Nephro no neuro symtpoms at this point Recommend: - supp o2 as needed, duonebs PRN, IS -f/u cultures - Check BMP q6hr, goal Na correction 8meq/24hr - Hold Lasix -f/u nephro recs - GI ppx - DVT ppx rest of care above Johnny Barnett MD Supervising Architect
[2018-03-22] MEDS: Insulin Reg-HIGH-Coverage SC SCH ×4 (08:08→22:07)
[2018-03-22] MEDS: Pantoprazole 40 mg EC Tab PO SCH (08:12)
[2018-03-22] MEDS: cefTRIAXone 1 gm 1 GM/100 ML BAG IVPB SCH (09:42)
[2018-03-22 11:20] LABS: CALCIUM 8.3 mg/dL (8.4-10.5)
--- NOTE | 2018-03-22 12:41 | PN ---
DATE: 03/22/2018 SUBJECTIVE: The patient is 82 years old, seen and examined, lying in bed. Seems to be short of breath. PHYSICAL EXAMINATION: VITAL SIGNS: She is afebrile, pulse 57, respirations 20, blood pressure 149/54. LUNGS: Bilateral fair airflow. No rhonchi or crackle. HEART: S1 and S2 audible. ABDOMEN: Soft. Nontender. No rebound. No guarding. NEUROLOGICAL: She is awake, alert, oriented, communicative. LABORATORY EXAM: WBC 9.7, hemoglobin 10.2, hematocrit 28.4, platelet 144. Chemistry: Sodium 122, potassium 5.3, chloride 94, CO2 of 17, BUN 56, creatinine 1.6, blood sugar of 312. Flu test is negative. Urine has gram-negative rods. ASSESSMENT: 1. Symptomatic hyponatremia. 2. Hypertension. 3. History of congestive heart failure. 4. Coronary artery disease. 5. Noninsulin-dependent diabetes. PLAN: Currently, the patient is on IV antibiotic. She is on hypertonic saline. I will give her one dose of Lasix. Continue nebulizer treatment. We will monitor her electrolyte in the a.m. Harsh Morataya MD
[2018-03-22] MEDS ORDERED: Sodium Chloride 3% 500 ML IV SCH (13:14)
[2018-03-22 16:24] LABS: CALCIUM 8.8 mg/dL (8.4-10.5)
[2018-03-22 20:14] LABS: CALCIUM 8.7 mg/dL (8.4-10.5)
--- NOTE | 2018-03-22 23:03 | PN ---
DATE: 03/22/2018 SUBJECTIVE: The patient is seen sitting in bed in the ICU. She is somewhat lethargic. She is arousable. She complains of some shortness of breath. She also complains of some cough. She reports that her right-sided chest pain is improved. She denies any nausea or vomiting. She complains of pain in her feet. PHYSICAL EXAMINATION: GENERAL: Elderly lady sitting in chair in the ICU. VITAL SIGNS: Blood pressure 133/52, heart rate 59, respiratory rate 19, temperature 97.8. HEENT: Normocephalic, atraumatic, positive pallor. NECK: Supple, no JVD. LUNGS: Bilateral equal air entry, bilateral rhonchi, decreased breath sounds at bases, right-sided crackles. CARDIAC: S1 and S2, regular rate and rhythm, no murmur, no rub. ABDOMEN: Obese, distended, soft, nontender, bowel sounds present. EXTREMITIES: No lower extremity edema. INTAKE AND OUTPUT: 1870/1150. LABORATORY DATA: WBC 9.7, hemoglobin 10, hematocrit 28, platelets 144. Sodium 122, potassium 5.3, chloride 94, CO2 of 17, BUN 56, creatinine 1.6, glucose 260, calcium 8.3, phosphorus 4.2, magnesium 2.3. Urine culture, gram-negative cassia. Blood culture, no growth. CURRENT MEDICATIONS: Aspirin, heparin, 3% saline at 20 mL/hour, Lasix 40 IV daily started this afternoon, amlodipine 10, Protonix, Tylenol, Vantin 200, Xanax, Xopenex, Zofran, Rocephin discontinued. ASSESSMENT: 1. Severe life-threatening hyponatremia, prerenal/depletion at the time of presentation. 2. 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 3. Severe cardiomyopathy, congestive heart failure, coronary artery disease. 4. Recurrent hyponatremia. 5. Hyperkalemia, resolving. 6. Underlying chronic kidney disease stage 4. 7.? Right-sided pneumonia. 8. History of anemia, anemia of chronic kidney disease plus gastrointestinal bleed. 9. History of Dieulafoy lesion. 10. History of partial colectomy. PLAN: 1. Discontinue 3% saline after current bag. 2. Acceptable sodium is 124-125. 3. Continue empiric antibiotics. 4. Repeat urine sodium and serum uric acid. 5. May need Samsca. Case discussed at length with ICU team, ICU resident, teleprinter, case discussed with Dr. Morataya. More than 35 minutes was spent in the care of this critically ill patient. Frieda Rodriguez MD
[2018-03-22 23:59] LABS: CALCIUM 8.4 mg/dL (8.4-10.5)
[2018-03-23] MEDS: Promethazine DM 6.25 mg-15 mg/5 ml Syrup PO SCH ×3 (03:27→21:01)
[2018-03-23 05:44] LABS: BASO # 0.04 K/mm3 (0.0-2.0); BASO % 0.5 % (0.0-3.0); EOS # 0.3 (0.0-0.7); GRAN # 4.62 (1.4-6.5); GRAN % 56.1 % (50.0-68.0); HEMOGLOBIN 9.5 g/dL (12.0-16.0); LYMPH # 1.9 (1.2-3.4); LYMPH % 23.5 % (22.0-35.0); MEAN CELL VOLUME 91.3 fl (80.0-105.0); MEAN CORPUSCULAR HEMOGLOBIN 31.9 pg (25.0-35.0); MEAN CORPUSCULAR HGB CONC 34.9 g/dl (31.0-37.0); MEAN PLATELET VOLUME 9.9 fl (7.0-11.0); MONO # 1.4 (0.1-0.6); MONO % 16.9 % (1.0-6.0); RBC 2.98 10^6/uL (3.5-6.1); RED CELL DISTRIBUTION WIDTH 15.6 % (11.5-14.5); WHITE BLOOD COUNT 8.2 10^3/ul (4.5-11.0)
[2018-03-23 05:52] LABS: ALB/GLOB RATIO 1.1 (1.1-1.8); ALBUMIN 3.2 g/dL (3.0-4.8); CALCIUM 8.3 mg/dL (8.4-10.5); URIC ACID 9.4 mg/dL (2.5-6.2)
[2018-03-23] MEDS: Insulin Reg-HIGH-Coverage SC SCH ×4 (07:39→21:46)
[2018-03-23] MEDS: Pantoprazole 40 mg EC Tab PO SCH (07:39)
[2018-03-23] MEDS: Levalbuterol 0.63 MG/3 ML Inhal Soln UD IH SCH ×2 (07:50→20:34)
[2018-03-23] MEDS: Cefpodoxime (Vantin) 200 mg Tab PO SCH (09:14)
--- NOTE | 2018-03-23 14:18 | PN ---
DATE: 03/23/2018 SUBJECTIVE: The patient is 82 years old, seen and examined, doing well. No nausea or vomiting. No diarrhea. Eating and tolerating. Has some shortness of breath. Cough is better. PHYSICAL EXAMINATION: VITAL SIGNS: She is afebrile, pulse 62, respirations 22, and blood pressure 138/51. LUNGS: Bilateral few expiratory rhonchi. HEART: S1, S2 audible. ABDOMEN: Soft and nontender. No rebound, no guarding. NEUROLOGIC: She is awake, alert, oriented, and communicative. LABORATORY EXAM: WBC is 8.2, hemoglobin 9.5, hematocrit 27.2, and platelets 144. Chemistry: Sodium 124, potassium 4.9, chloride 94, CO2 of 19. BUN 63, creatinine 1.9. Blood sugar of 261. ASSESSMENT: 1. Symptomatic hyponatremia. 2. Hypertension. 3. Coronary artery disease. 4. Cardiac cirrhosis. 5. Thrombocytopenia. PLAN: We will monitor the patient's blood sugar, continue on aspirin 81 daily. She is on Lasix daily, she is on amlodipine. We will continue nebulizer treatment. She is on Vantin. We will follow up the patient's electrolytes intermittently. Harsh Morataya MD
[2018-03-23] MEDS: Tolvaptan 15 MG TAB PO SCH (17:08)
--- NOTE | 2018-03-23 18:52 | PN ---
DATE: 03/23/2018 SUBJECTIVE: The patient is seen sitting in chair in the ICU. She is awake, she is alert. She is somewhat lethargic. She complains of some cough. She reports some shortness of breath. She reports some pain in the right side on coughing. She denies any abdominal pain. She denies any left-sided chest pain. She denies any nausea or vomiting. She denies any urinary complaints. PHYSICAL EXAMINATION: GENERAL: Elderly lady sitting in chair in the ICU. VITAL SIGNS: Blood pressure 138/51, heart rate 62, respiratory rate 22, and temperature 98. HEENT: Normocephalic, atraumatic, positive pallor. NECK: Supple, no JVD. LUNGS: Bilateral equal air entry, bilateral equal expansion, decreased breath sounds at bases, crackles right side. CARDIAC: S1 and S2, regular rate and rhythm, no murmur, no rub. ABDOMEN: Soft, nondistended, nontender, bowel sounds present. EXTREMITIES: No lower extremity edema. INTAKE AND OUTPUT: 860/1151 LABORATORY DATA: WBC 8.2, hemoglobin 9.5, hematocrit 27, and platelets 144. Sodium 124, potassium 4.9, chloride 94, CO2 of 19. BUN 63, creatinine 1.9. Glucose 261. Calcium 8.3, uric acid 9.4, albumin 3.2, corrected calcium is 8.8. Urine sodium 74, urine osmolality 321. Urine culture, Enterococcus faecalis. CURRENT MEDICATIONS: Aspirin, heparin, Lasix 40 IV daily, amlodipine 10, Vantin 200, Xanax, Xopenex, and Zofran. ASSESSMENT: 1. Severe life-threatening hyponatremia, sodium is much improved with hypertonic saline. Workup is repeated, this is consistent with syndrome of inappropriate antidiuretic hormone secretion. 2. Decompensated congestive heart failure. 3. Acute kidney injury superimposed on chronic kidney disease stage IV. 4. Chronic anemia. 5. Coronary artery disease, congestive heart failure, cardiomyopathy, and decreased ejection fraction. 6. History of recurrent gastrointestinal bleed, Dieulafoy lesion, and partial colectomy. 7. Enterococcal urinary tract infection. 8. Hyperkalemia, resolved. PLAN: 1. Tolvaptan 15 mg daily x3. 2. Monitor urine output. 3. Monitor daily electrolytes. 4. Continue antibiotics as per ID recommendations. 5. Continue Lasix 40 mg daily. 6. Continue to hold Aldactone. 7. Case discussed with ICU residents, case discussed with ICU nursing staff, more than 35 minutes spent in the care of this critically ill patient. Frieda Rodriguez MD
[2018-03-24] MEDS: Promethazine DM 6.25 mg-15 mg/5 ml Syrup PO SCH ×3 (05:57→19:07)
[2018-03-24 06:34] LABS: BASO # 0.06 K/mm3 (0.0-2.0); BASO % 0.9 % (0.0-3.0); EOS # 0.4 (0.0-0.7); EOS % 5.5 % (1.5-5.0); GRAN # 3.46 (1.4-6.5); GRAN % 51.5 % (50.0-68.0); HEMOGLOBIN 10.7 g/dL (12.0-16.0); LYMPH % 29.3 % (22.0-35.0); MEAN CELL VOLUME 92.2 fl (80.0-105.0); MEAN CORPUSCULAR HGB CONC 34.7 g/dl (31.0-37.0); MEAN PLATELET VOLUME 9.2 fl (7.0-11.0); MONO # 0.9 (0.1-0.6); MONO % 12.8 % (1.0-6.0); RBC 3.34 10^6/uL (3.5-6.1); RED CELL DISTRIBUTION WIDTH 15.6 % (11.5-14.5); WHITE BLOOD COUNT 6.7 10^3/ul (4.5-11.0)
[2018-03-24 07:00] LABS: ALB/GLOB RATIO 1.1 (1.1-1.8); ALBUMIN 3.3 g/dL (3.0-4.8)
[2018-03-24] MEDS: Levalbuterol 0.63 MG/3 ML Inhal Soln UD IH SCH ×3 (07:32→19:50)
[2018-03-24] MEDS: Insulin Reg-HIGH-Coverage SC SCH ×4 (07:50→22:00)
[2018-03-24] MEDS: Cefpodoxime (Vantin) 200 mg Tab PO SCH (09:47)
[2018-03-24] MEDS: Pantoprazole 40 mg EC Tab PO SCH (09:47)
[2018-03-24] MEDS: Tolvaptan 15 MG TAB PO SCH (11:53)
--- NOTE | 2018-03-24 14:41 | PN ---
DATE: 03/24/2018 HISTORY OF PRESENT ILLNESS: Ms. Winters is an 82-year-old female, admitted to the hospital with low-grade fever, chest congestion, cough. She was also found to be hyponatremic. She has chronic anemia due to episodes of multiple GI bleed, chronic GI bleed. Hyponatremia improved during the hospitalization. She has other medical issues, cardiac cirrhosis, also chronic kidney disease, status post right hemicolectomy due to GI bleed. No bleeding during this hospitalization. PAST MEDICAL HISTORY: History of cardiac cirrhosis, congestive cardiac failure, diabetes mellitus type 2, coronary artery disease, COPD, chronic kidney disease, status post right hemicolectomy. ALLERGIES: NO KNOWN DRUG ALLERGIES. SOCIAL HISTORY: Ex-smoker. No history of alcohol abuse. CURRENT MEDICATIONS: Tylenol 650 every 6 hours p.r.n., Xanax 0.25 mg every 12 hours, Norvasc 10 mg daily, aspirin 81 mg daily, Vantin 200 mg p.o. daily, Lasix, heparin 500 every 8, Xopenex, Zofran, Phenergan. LABORATORY DATA: White count 6.7, hemoglobin 10.7, hematocrit 30.8, platelet 153. Sodium 130, potassium 4.7, creatinine 1.6. UA: Leukocyte esterase positive. Influenza negative. PHYSICAL EXAMINATION: GENERAL: Comfortable in bed, in no acute distress. VITAL SIGNS: Temperature 97.8, heart rate is 80 per minute, blood pressure 120/60, respiratory rate 18 per minute, oxygen saturation 100% on room air. HEENT: Pallor positive. NECK: No lymphadenopathy. CHEST: Air entry present and equal, bilateral. No added sounds. CARDIOVASCULAR: S1, S2 normal. No murmur. No gallop. ABDOMEN: Soft, nontender. No hepatosplenomegaly. EXTREMITIES: No edema. HOME HEALTH CNA: Alert and oriented x3. No focal sensorimotor deficits. ASSESSMENT: 1. Hyponatremia. 2. Anemia. 3. Leukocytosis. 4. Chronic kidney disease. 5. History of gastrointestinal bleed, status post hemicolectomy. 6. Chronic kidney disease. PLAN: We will continue current medications. Xanax 0.25 mg p.o. every 12 hours. Blood pressure controlled on current medications. Norvasc 10 mg daily, aspirin 81 mg daily. Antibiotic Vantin 200 mg daily continue. DVT prophylaxis with 5000 subcutaneous every 8 heparin, Xopenex t.i.d., Zofran p.r.n. Hemoglobin and hematocrit stable. Creatinine elevated to 1.6. She has chronic kidney disease. Cathleen Hampton MD
[2018-03-25] MEDS: Promethazine DM 6.25 mg-15 mg/5 ml Syrup PO SCH ×4 (04:20→20:54)
[2018-03-25 07:23] LABS: BASO # 0.02 K/mm3 (0.0-2.0); BASO % 0.2 % (0.0-3.0); EOS # 0.2 (0.0-0.7); EOS % 2.6 % (1.5-5.0); GRAN # 4.27 (1.4-6.5); GRAN % 53.4 % (50.0-68.0); HEMOGLOBIN 9.8 g/dL (12.0-16.0); LYMPH # 2.5 (1.2-3.4); LYMPH % 31.1 % (22.0-35.0); MEAN CELL VOLUME 91.5 fl (80.0-105.0); MEAN CORPUSCULAR HEMOGLOBIN 32.1 pg (25.0-35.0); MEAN CORPUSCULAR HGB CONC 35.1 g/dl (31.0-37.0); MEAN PLATELET VOLUME 9.4 fl (7.0-11.0); MONO % 12.7 % (1.0-6.0); RBC 3.05 10^6/uL (3.5-6.1); RED CELL DISTRIBUTION WIDTH 15.6 % (11.5-14.5)
[2018-03-25] MEDS: Levalbuterol 0.63 MG/3 ML Inhal Soln UD IH SCH ×3 (07:32→20:38)
[2018-03-25 07:38] LABS: ALB/GLOB RATIO 1.1 (1.1-1.8); ALBUMIN 3.2 g/dL (3.0-4.8); CALCIUM 8.9 mg/dL (8.4-10.5)
[2018-03-25] MEDS: Insulin Reg-HIGH-Coverage SC SCH ×4 (08:25→21:48)
[2018-03-25] MEDS: Cefpodoxime (Vantin) 200 mg Tab PO SCH (09:41)
[2018-03-25] MEDS: Tolvaptan 15 MG TAB PO SCH (10:03)
[2018-03-25] MEDS: Pantoprazole 40 mg EC Tab PO SCH (10:03)
--- NOTE | 2018-03-25 17:11 | PN ---
DATE: 03/25/2018 SUBJECTIVE: The patient is seen lying in bed. She is comfortably lying in bed. She denies any shortness of breath. She complains of some cough. She reports that her right-sided chest pain is much improved. PHYSICAL EXAMINATION: GENERAL: Elderly lady lying in bed. VITAL SIGNS: Blood pressure 132/95, heart rate 58, respiratory rate 18, temperature 97.5. HEENT: Normocephalic, atraumatic, positive pallor. NECK: Supple, no JVD. LUNGS: Bilateral equal air entry, bilateral equal expansion. CARDIAC: S1 and S2, regular rate and rhythm, no murmur, no rub. ABDOMEN: Soft, nondistended, nontender, bowel sounds present. EXTREMITIES: No lower extremity edema. LABORATORY DATA: WBC 8, hemoglobin 9.8, hematocrit 28, platelets 137. Sodium 127, potassium 4.9, chloride 94, CO2 of 24, BUN 67, creatinine 1.8, glucose 241, calcium 8.9. AST 26, ALT 29, albumin 3.2. Urine culture, E enterococcus. CURRENT MEDICATIONS: Aspirin, insulin, Lasix 40 IV daily, amlodipine 10, Samsca 15 mg given today, Tylenol, Xanax, Xopenex. ASSESSMENT: 1. Status post severe life-threatening hyponatremia, depletional, superimposed on his syndrome of inappropriate antidiuretic hormone secretion. 2. Decompensated congestive heart failure. 3.? Pneumonia. 4. History of coronary artery disease, congestive heart failure, cardiomyopathy. 5. History of severe anemia, gastrointestinal bleed in the past, Dieulafoy lesion, partial colectomy. PLAN: 1. Check labs in the a.m. The patient's sodium is slowly improving with Samsca, may need chronic Samsca administration, maybe two to three times per week. 2. Continue antibiotics as per ID recommendations. 3. Stable chronic kidney disease stage 4. 4.? Discharge planning. Frieda Rodriguez MD
[2018-03-26] MEDS: Promethazine DM 6.25 mg-15 mg/5 ml Syrup PO SCH ×3 (03:52→22:23)
[2018-03-26] MEDS: Levalbuterol 0.63 MG/3 ML Inhal Soln UD IH SCH ×3 (07:08→20:16)
[2018-03-26 07:30] LABS: BASO # 0.04 K/mm3 (0.0-2.0); BASO % 0.5 % (0.0-3.0); EOS # 0.1 (0.0-0.7); EOS % 1.3 % (1.5-5.0); GRAN # 4.58 (1.4-6.5); GRAN % 61.3 % (50.0-68.0); LYMPH # 1.9 (1.2-3.4); LYMPH % 25.2 % (22.0-35.0); MEAN CELL VOLUME 93.6 fl (80.0-105.0); MEAN CORPUSCULAR HEMOGLOBIN 32.1 pg (25.0-35.0); MEAN CORPUSCULAR HGB CONC 34.2 g/dl (31.0-37.0); MEAN PLATELET VOLUME 9.2 fl (7.0-11.0); MONO # 0.9 (0.1-0.6); MONO % 11.7 % (1.0-6.0); RBC 3.12 10^6/uL (3.5-6.1); RED CELL DISTRIBUTION WIDTH 15.9 % (11.5-14.5); WHITE BLOOD COUNT 7.5 10^3/ul (4.5-11.0)
[2018-03-26] MEDS: Insulin Reg-HIGH-Coverage SC SCH ×4 (08:10→22:19)
[2018-03-26] MEDS: Pantoprazole 40 mg EC Tab PO SCH (08:11)
--- NOTE | 2018-03-26 08:14 | PN ---
DATE: SUBJECTIVE: The patient is 82 years old seen and examined, sitting in chair, seems to be comfortable, less shortness of breath, not eating that well. PHYSICAL EXAMINATION: VITAL SIGNS: She is afebrile, pulse 60, respirations 18 and blood pressure 130/54. LUNGS: Bilateral fair airflow, few occasional expiratory rhonchi on the back. HEART: S1 and S2, audible. ABDOMEN: Soft and nontender. No rebound. No regarding. NEUROLOGICALLY: The patient is awake, alert, able to communicate. LABORATORY EXAMINATION: WBC 8.0, hemoglobin 9.8, hematocrit 37.9, platelets of 137. Chemistry: Sodium 127, potassium 4.9, chloride 94, CO2 of 24, BUN 67, creatinine 1.8, blood sugar of 248. Urine growing Enterococcus faecalis. ASSESSMENT: 1. Symptomatic hyponatremia. 2. Enterococcus faecalis urinary tract infection. 3. Hypertension. 4. Cardiac cirrhosis. 5. Thrombocytopenia. 6. Chronic anemia. 7. Chronic kidney disease. 8. 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 9. Congestive heart failure. 10. Insulin dependent diabetes. PLAN: The patient is currently on aspirin 81 daily. The patient is ambulatory. I will discontinue her heparin. She is thrombocytopenic, continue her on Lasix, amlodipine and she is given a dose of Samsca today. Continue nebulizer treatment, I will request for TCU evaluation; if accepted, patient can be transferred to TCU for close monitoring of her electrolytes and physical therapy. Harsh Morataya MD
[2018-03-26 08:39] LABS: ALB/GLOB RATIO 1.2 (1.1-1.8); ALBUMIN 3.4 g/dL (3.0-4.8); CALCIUM 9.2 mg/dL (8.4-10.5)
[2018-03-26] MEDS ORDERED: Sod Polystyrene Sulf 15 gm/60 ml Susp PO STA (08:56)
[2018-03-26] MEDS ORDERED: Nitroglycerin 2% Ointment Foilpak UD TOP SCH (09:15)
[2018-03-26 09:26] LABS: TROPONIN I 0.05 ng/mL
[2018-03-26] MEDS: Mupirocin 2% Ointment 15 GM TUBE NS SCH ×2 (09:29→17:33)
[2018-03-26 09:35] LABS: FREE T4 1.4 ng/dL (0.78-2.19)
--- NOTE | 2018-03-26 10:38 | CARD ---
APPROVED REPORT Date of service: 03/26/2018 EKG Measurement Heart [id number] <Conclusion> Sinus rhythm with Junction Rhythm PRWP Possible ASMI, age unkown
--- NOTE | 2018-03-26 13:43 | PN ---
DATE: 03/26/2018 SUBJECTIVE: The patient is 82 years old, seen and examined, sitting with the family, had chest pain earlier, but got better. Mild shortness of breath. PHYSICAL EXAMINATION: VITAL SIGNS: She is afebrile, pulse 57, respirations 18, blood pressure 130/62. LUNGS: Bilateral fair airflow. No rhonchi or crackle. HEART: S1 and S2 audible. ABDOMEN: Soft. Nontender. No rebound. No guarding. NEUROLOGICAL: The patient is awake, alert, oriented, communicative. EXTREMITIES: Bilateral leg, no edema. LABORATORY EXAM: Her WBC 7.5, hemoglobin 10, hematocrit 29.2, platelet 148. Chemistry: Sodium 129, potassium 5.6, chloride 98, CO2 of 22, BUN 64, creatinine 1.7, blood sugar of 231. EKG done earlier shows sinus rhythm with junctional rhythm, possible anteroseptal WA with age undetermined. ASSESSMENT: 1. Coronary artery disease, status post angioplasty, right coronary artery. 2. Hyperkalemia. 3. Hyponatremia. 4. Renal insufficiency. 5. Cardiac cirrhosis. 6. Hypertension. 7. Insulin-dependent diabetes. PLAN: The patient is given dose of Kayexalate. I will continue on Lasix. I will start her on isosorbide. Dr. Moses to evaluate the patient. The patient is clinically stable. I will request for TCU evaluation. If accepted, can be transferred to TCU. Harsh Morataya MD
[2018-03-26] MEDS: Cefpodoxime (Vantin) 100 mg Tab PO SCH (15:35)
--- NOTE | 2018-03-26 15:42 | PN ---
DATE: 03/26/2018 SUBJECTIVE: The patient is currently seen lying comfortable in bed on 5R. She appears to be in no acute distress. No IV fluids are infusing. She did have an elevated potassium level this morning and received one dose of Kayexalate. Her corrected sodium is now 133. MEDICATIONS: Medication list reviewed. The patient is currently on aspirin, mupirocin, sliding scale insulin, Imdur, IV Lasix, Maalox, Norvasc, Phenergan DM, Protonix, Tylenol, Xanax, Xopenex and Zofran p.r.n. OBJECTIVE: INTAKE/OUTPUT: Intake 880, output not charted. VITAL SIGNS: Blood pressure is 130/62, temperature 98, pulse of 57 with a respiratory rate of 18, pulse ox is 93%. HEENT: Shows her be normocephalic, atraumatic. Conjunctivae are pale. Sclerae are nonicteric. NECK: Supple. No neck vein distention. CHEST: Clear to auscultation and percussion with slight decreased breath sounds at the bases. No rales, rhonchi or wheezing. CARDIOVASCULAR: Shows a regular rate and rhythm with MR/TR/AI. No S3, no S4, no rub. ABDOMEN: Soft. Bowel sounds normal. No rebound, guarding or masses. EXTREMITIES: Show no lower extremity cyanosis, clubbing or edema. LABORATORY DATA AND IMAGING: Admitting chest x-ray showed bilateral lower lobe infiltrates, perhaps representing CHF, perhaps pneumonia. Labs, CBC: White blood cell count 7.5, hemoglobin 10 with a platelet count of 148,000. Coags are normal. Chemistries from today: Sodium 129; glucose 306; corrected sodium level is 132-133; potassium level 5.6, up from 4.9. She received one dose of Kayexalate and sorbitol. BUN 64, within the upper range of her baseline. Creatinine 1.7, at her baseline range. Hemoglobin A1c 9.3%. Calcium 9.2, phosphorus 3.8 with a magnesium level of 2.4. Liver enzymes are normal. Microbiology: Urine cultures positive for Enterococcus. Blood cultures were negative. ASSESSMENT: 1. Status post severe hyponatremia. The patient presented with a sodium level of 111 and currently corrects to 133. She is status post normal saline, 3% and tolvaptan. She does remain on low-dose Lasix therapy for her congestive heart failure and lower extremity edema. She has a history of decompensated congestive heart failure. 2. History of atherosclerotic heart disease, status post percutaneous transluminal coronary angioplasty and stents, history of congestive heart failure, history of cardiac cirrhosis. 3. Mild hyperkalemia. Status post one dose of Kayexalate. We will decrease K in her diet and try and avoid further dosing of Kayexalate. She is not taking any AKUA inhibitors, angiotensin receptor blockers or potassium-sparing diuretics. 4. Past history of a gastrointestinal bleed secondary to arteriovenous malformation, status post right hemicolectomy, stable. 5. History of anemia. Hemoglobin is stable at 10. 6. Hypertension, controlled on present medical therapy. 7. Noninsulin-dependent diabetes mellitus, controlled on sliding scale insulin. 8. History of Enterococcus urinary tract infection and possible pneumonia. The patient had received a course of antibiotic therapy. PLAN: 1. Continue to fluid restrict. 2. Continue IV Lasix cautiously. 3. Continue to monitor accurate I's and O's, daily weights and daily labs. 4. Given her chronic kidney disease stage 3 with baseline creatinine of 1.6, try and use diuretics judiciously. 5. We will continue fluid restriction as ordered. Ga Braden MD
[2018-03-26 22:13] VITALS: RESP 20; TEMP 97.5
--- NOTE | 2018-03-27 01:52 | CON ---
DATE: 03/26/2018 REASON FOR CONSULTATION: Congestive heart failure and shortness of breath. HISTORY OF PRESENT ILLNESS: The patient is an 82-year-old [place] female who has a history of cirrhosis, anemia, congestive heart failure, coronary artery disease with a history of coronary artery stenting in the past, history of GI bleeding and history of chronic renal insufficiency; has been frequently in and out of the hospice to a subacute rehab and recently was discharged home to be readmitted because of shortness of breath. The patient was also experiencing cough and this morning she did experience right nostril bleed. There is no reported GI bleeding. SOCIAL HISTORY: Nonsmoker, nondrinker. She lives with her son. MEDICATIONS: Aspirin 81 mg once a day, Imdur 30 mg once day, Lasix 40 mg intravenously daily, Norvasc 10 mg once a day, Protonix 40 mg once a day, Phenergan DM 5 mL every 8 hours, Xanax 0.5 mg every 12 hours, Xopenex inhalation t.i.d., Zofran 4 mg intravenously every 6 hours p.r.n. REVIEW OF SYSTEMS: No hematemesis or melena. No fever or chills. PHYSICAL EXAMINATION: GENERAL: The patient is an elderly female who appears depressed, does not appear to be in any respiratory distress. VITAL SIGNS: Blood pressure 129/40, heart rate 57, temperature 98, respirations 18. HEENT: Pale conjunctivae. CHEST: Right basilar coarse crepitations. HEART: S1 and S2, regular. ABDOMEN: Soft. EXTREMITIES: Trace leg edema. LABORATORY DATA: Hemoglobin and hematocrit of 10 and 29.2 today, white count and platelet count are within normal limits. Today's SMA-7: Sodium 129, potassium 5.6, chloride 98, CO2 of 22, glucose 306, BUN 64, calcium 1.7. Triglycerides 177. Rest of lipid profile is within normal limits. EKG revealed sinus rhythm with runs of junctional bradycardia. Overall heart rate during the 12-second EKG strip was 63 beats per minute. The most recent cardiac catheterization was in 11/2017, which revealed 50% stenosis of the mid RCA, 50% stenosis of the mid LAD and 60% to 70% stenosis of the proximal portion of small diagonal branch with patent mid LAD stent and normal ejection fraction. ASSESSMENT: 1. coronary artery disease with patent mid left anterior descending stent. 2. Periods of junctional bradycardia. 3. Anemia with a history of gastrointestinal bleeding in the past. 4. Renal insufficiency. 5. Hyperkalemia. 6. Uncontrolled diabetes mellitus. 7. Consider right lower lobe pneumonia. Chest x-ray was consistent with right lower lobe infiltrate. RECOMMENDATIONS: Continue aspirin 81 mg once a day, Imdur 30 mg orally daily, Lasix 40 mg intravenously daily and Norvasc 10 mg once a day. The patient is also a suitable candidate for therapy. Continue oral Vantin 200 mg daily. Hal Ayon MD
[2018-03-27] MEDS: Promethazine DM 6.25 mg-15 mg/5 ml Syrup PO SCH ×2 (03:23→10:54)
[2018-03-27] MEDS: Levalbuterol 0.63 MG/3 ML Inhal Soln UD IH SCH ×2 (07:34→13:14)
[2018-03-27 07:35] LABS: BASO # 0.07 K/mm3 (0.0-2.0); EOS # 0.3 (0.0-0.7); EOS % 3.7 % (1.5-5.0); GRAN # 3.72 (1.4-6.5); GRAN % 55.2 % (50.0-68.0); HEMOGLOBIN 10.7 g/dL (12.0-16.0); LYMPH # 1.7 (1.2-3.4); LYMPH % 25.3 % (22.0-35.0); MEAN CELL VOLUME 95.5 fl (80.0-105.0); MEAN CORPUSCULAR HEMOGLOBIN 31.9 pg (25.0-35.0); MEAN CORPUSCULAR HGB CONC 33.4 g/dl (31.0-37.0); MEAN PLATELET VOLUME 8.7 fl (7.0-11.0); MONO % 14.8 % (1.0-6.0); RBC 3.35 10^6/uL (3.5-6.1); WHITE BLOOD COUNT 6.8 10^3/ul (4.5-11.0)
[2018-03-27 07:46] LABS: TROPONIN I 0.05 ng/mL
[2018-03-27 07:47] LABS: ALB/GLOB RATIO 1.2 (1.1-1.8); ALBUMIN 3.4 g/dL (3.0-4.8); CALCIUM 9.1 mg/dL (8.4-10.5)
[2018-03-27] MEDS: Insulin Reg-HIGH-Coverage SC SCH ×3 (07:57→17:29)
[2018-03-27] MEDS: Pantoprazole 40 mg EC Tab PO SCH (07:58)
--- NOTE | 2018-03-27 08:06 | CARD ---
APPROVED REPORT Date of service: 03/27/2018 EKG Measurement Heart [id number] ID [id number] <Conclusion> Normal sinus rhythm Possible Left atrial enlargement IVCD Mild ST elevations V 1 - 3 with peaked T waves c/w acute ischemia.
[2018-03-27] MEDS: Mupirocin 2% Ointment 15 GM TUBE NS SCH ×2 (10:53→17:29)
[2018-03-27] MEDS: Cefpodoxime (Vantin) 100 mg Tab PO SCH (10:54)
--- NOTE | 2018-03-27 13:30 | PN ---
DATE: 03/27/2018 CARDIOLOGY FOLLOWUP SUBJECTIVE: The patient complains of chest pain only when she coughs. PHYSICAL EXAMINATION: VITAL SIGNS: Blood pressure 126/63, heart rates in the 90s. The patient is afebrile. NECK: Negative JVD. LUNGS: No rales noted. HEART: Reveals S1, S2. EXTREMITIES: Without edema. LABORATORY DATA: BUN and creatinine 55 and 1.6. Troponin is 0.05. Glucose is 200. IMPRESSION: 1. Chest pain is from musculoskeletal, exacerbated by her coughing. 2. Stable angina. 3. History of percutaneous transluminal coronary angioplasty and stent. 4. Coronary artery disease. 5. Pneumonia. 6. Diabetes mellitus. 7. Prerenal azotemia. 8. Resolution of congestive heart failure. Given these findings, we will change her IV Lasix to p.o. Lasix. There is no coronary intervention necessary given that her chest pain is likely due to musculoskeletal pain from the strain of coughing. Geovanni Moses MD
[2018-03-27 16:14] VITALS: BP 117/53; PULSE 84; O2SAT 100
--- NOTE | 2018-03-27 17:39 | PN ---
DATE: 03/27/2018 SUBJECTIVE: The patient is seen lying in bed. She is awake. She is alert. She is comfortable. PHYSICAL EXAMINATION: GENERAL: Elderly lady, sitting in chair. VITAL SIGNS: Blood pressure 117/53, heart rate 84, respiratory rate 20, temperature 97.5. HEENT: Normocephalic, atraumatic, positive pallor. NECK: Supple, no JVD. LUNGS: Bilateral equal air entry, bilateral equal expansion. CARDIAC: S1 and S2, regular rate and rhythm, no murmur, no rub. ABDOMEN: Soft, nondistended, nontender, bowel sounds present. EXTREMITIES: No lower extremity edema. LABORATORY DATA: WBC 6.8, hemoglobin 10.7, hematocrit 32, platelets 136. Sodium 135, potassium 4.4, chloride 100, CO2 of 28, BUN 55, creatinine 1.6, glucose 200, calcium 9.1, AST 34, ALT 37, albumin 3.4, globulin 2.8. CURRENT MEDICATIONS: Aspirin, Bactroban, Imdur, Lasix 40 p.o. daily, Maalox, amlodipine 10, Protonix, Tylenol, Vantin, Xopenex, Zofran. ASSESSMENT: 1. Status post severe life-threatening hyponatremia, depletional, superimposed on underlying syndrome of inappropriate antidiuretic hormone. 2. Severe cardiomyopathy, congestive heart failure, recurrent decompensation. 3. Noninsulin-dependent diabetes mellitus. 4. Hypertension. 5. Severe anemia, multifactorial. 6. Underlying chronic kidney disease stage IV. 7. Hyperkalemia, resolved. PLAN: 1. Currently, sodium is good, continue fluid restriction and agree with switching Lasix to orally. 2. The patient has SIADH, may benefit from intermittent use of tolvaptan. 3. Monitor H and H. 4. No objection to transfer to rehab. Frieda Rodriguez MD
--- NOTE | 2018-03-27 19:32 | PQF ---
PROVIDER RESPONSE TEXT: Diastolic heart Failure REVIEWER QUERY TEXT: CHF Acuity and Type Congestive Heart Failure is documented in the Medical Record. Please document the type and acuity (in cludes probable or suspected) Such as: Type: -- Systolic -- Diastolic -- Combined -- Other, please specify Acuity: -- Acute -- Chronic -- Acute on chronic -- Other, please specify Also please document the underlying cause of the CHF (includes probable or suspected) The patient's Clinical Indicators include: Query created by: Norma Garnica on 03/27/2018 11:44 AM Electronically signed by: Hal Ayon MD 03/27/2018 7:29 PM
--- NOTE | 2018-03-28 10:15 | DS ---
HISTORY OF PRESENT ILLNESS: The patient is 82 years old, was admitted with cough, congestion, generalized weakness, was found to be hyponatremic with sodium of 110, so the patient was given IV fluids and she was evaluated by watershed engineer and received doses of Samsca. She complained of chest pain and was evaluated by Dr. Moses. The patient was catheterized and had angioplasty last year. She was treated symptomatically. No further intervention was needed. She needed rehab, so is being transferred to TCU today. PHYSICAL EXAMINATION: GENERAL: She is awake, alert, orientated and communicative. VITAL SIGNS: She is afebrile, pulse 84, respirations 20 and blood pressure 117/53. LUNGS: Bilateral fair airflow. No rhonchi or crackle. HEART: S1 and S2, audible. ABDOMEN: Soft and nontender. No rebound. No guarding. NEUROLOGICAL: The patient is awake, alert, oriented and communicative. LABORATORY DATA: WBC is 6.8, hemoglobin 10.7, hematocrit 32 and platelets of 136. Chemistry: Sodium 135, potassium 4.4, chloride 100, CO2 of 28, BUN 55, creatinine 1.6, and blood sugar of 344. Urine positive for Enterococcus faecalis. ASSESSMENT: 1. Hyponatremia that has improved, today sodium is 135. 2. Enterococcus faecalis urinary tract infection. 3. Hypertension. 4. Coronary artery disease. 5. Cardiac cirrhosis. 6. Thrombocytopenia. PLAN: The patient is being transferred to TCU. We will follow up the patient up there. I will continue her current medication. Currently, she is on Vantin, we will continue that and will follow up . Harsh Morataya MD
== END 2018-03-27 18:29 | DRG 291 ==
LOC: ED 14:22 → ERH 16:53 → CCU 19:25 → 5RSO 03-23 09:59
PROVIDERS: ADMIT Internal Medicine; ATTEND Internal Medicine
PROC: 3E0F7GC Introduction of Other Therapeutic Substance into Respiratory Tract, Via Natural or Artificial Opening (ICD-10-PCS; principal; 2018-03-20)
DX: I13.0 Hypertensive heart and chronic kidney disease with heart failure and stage 1 through stage 4 chronic kidney disease, or unspecified chronic kidney disease (principal); I50.33 Acute on chronic diastolic (congestive) heart failure; E22.2 Syndrome of inappropriate secretion of antidiuretic hormone; J18.9 Pneumonia, unspecified organism; N18.4 Chronic kidney disease, stage 4 (severe); N39.0 Urinary tract infection, site not specified; N17.9 Acute kidney failure, unspecified; J44.0 Chronic obstructive pulmonary disease with (acute) lower respiratory infection; I42.9 Cardiomyopathy, unspecified; E86.0 Dehydration; E11.22 Type 2 diabetes mellitus with diabetic chronic kidney disease; K76.1 Chronic passive congestion of liver; D69.6 Thrombocytopenia, unspecified; E87.5 Hyperkalemia; R00.1 Bradycardia, unspecified; D63.1 Anemia in chronic kidney disease; E78.5 Hyperlipidemia, unspecified; I25.118 Atherosclerotic heart disease of native coronary artery with other forms of angina pectoris; B95.2 Enterococcus as the cause of diseases classified elsewhere; K21.9 Gastro-esophageal reflux disease without esophagitis; Z79.4 Long term (current) use of insulin; Z87.01 Personal history of pneumonia (recurrent); Z95.5 Presence of coronary angioplasty implant and graft; Z90.49 Acquired absence of other specified parts of digestive tract; Z87.891 Personal history of nicotine dependence

== ENCOUNTER 2018-03-27 18:29 | Inpatient (IN) | payer OTHER ==
[2018-03-27 19:24] VITALS: BMI 22.8
[2018-03-27] MEDS ORDERED: Alum-Mag Hydrox-Simethicone Susp (30 mL) PO PRN (20:00)
[2018-03-27] MEDS ORDERED: Promethazine DM 6.25 mg-15 mg/5 ml Syrup PO SCH (20:00)
[2018-03-27] MEDS: Levalbuterol 0.63 MG/3 ML Inhal Soln UD IH SCH (20:55)
[2018-03-27] MEDS: Insulin Reg-HIGH-Coverage SC SCH (21:29)
[2018-03-27] MEDS ORDERED: Influenza Vaccine 60 mcg/0.5 mL SYR (4YR UP) IM ONE (22:40)
[2018-03-27] MEDS ORDERED: Pneumococcal 23-Valent Vaccine IM ONE (22:40)
[2018-03-28] MEDS: Pantoprazole 40 mg EC Tab PO SCH (05:45)
[2018-03-28] MEDS: Insulin Reg-HIGH-Coverage SC SCH ×4 (06:44→21:37)
[2018-03-28] MEDS: Levalbuterol 0.63 MG/3 ML Inhal Soln UD IH SCH ×3 (07:04→20:33)
[2018-03-28 09:07] LABS: ALB/GLOB RATIO 1.3 (1.1-1.8); ALBUMIN 3.7 g/dL (3.0-4.8); CALCIUM 9.4 mg/dL (8.4-10.5)
[2018-03-28] MEDS: Mupirocin 2% Ointment 15 GM TUBE NS SCH ×2 (09:27→17:10)
[2018-03-28] MEDS: Cefpodoxime (Vantin) 200 mg Tab PO SCH (09:29)
[2018-03-28] MEDS: Promethazine DM 6.25 mg-15 mg/5 ml Syrup PO SCH ×2 (13:26→21:17)
[2018-03-28] MEDS: Insulin Lispro (humaLOG) MIX 75/25(10 ml) SC SCH (17:17)
[2018-03-28] MEDS: Insulin Detemir 100 units/ml Vial (Levemir) SC SCH (21:37)
[2018-03-29] MEDS: Pantoprazole 40 mg EC Tab PO SCH (05:26)
[2018-03-29] MEDS: Promethazine DM 6.25 mg-15 mg/5 ml Syrup PO SCH ×3 (05:26→21:25)
[2018-03-29] MEDS: Insulin Reg-HIGH-Coverage SC SCH ×4 (06:56→21:24)
[2018-03-29] MEDS: Insulin Lispro (humaLOG) MIX 75/25(10 ml) SC SCH ×2 (06:57→17:08)
[2018-03-29] MEDS: Levalbuterol 0.63 MG/3 ML Inhal Soln UD IH SCH ×3 (07:13→20:31)
[2018-03-29] MEDS: Mupirocin 2% Ointment 15 GM TUBE NS SCH ×2 (09:06→17:10)
[2018-03-29] MEDS: Cefpodoxime (Vantin) 200 mg Tab PO SCH (09:07)
--- NOTE | 2018-03-29 09:14 | HP ---
HISTORY OF PRESENT ILLNESS: The patient is 82 years old who initially came in with cough, congestion, not feeling well and tired. She was found to have sodium of 112. The patient was given hypertonic saline and IV saline. She was treated with nebulizer treatment for 10 minutes, Lasix was given, initially she was in the ICU, later on transferred to regular floor. Because of her multiple comorbidities, she needed time to recover. She was transferred to TCU yesterday. PAST MEDICAL HISTORY: Significant for: 1. Hypertension. 2. Insulin-dependant diabetes. 3. Cardiomyopathy. 4. History of cardiac cirrhosis. 5. Coronary artery disease, status post angioplasty with RCA and LAD. 6. Thrombocytopenia. 7. Peptic ulcer disease. 8. History of . 9. History of GI bleed. 10. Right hemicolectomy. 11. Chronic kidney disease. ALLERGIES: THE PATIENT IS ALLERGIC TO SHELLFISH. MEDICATION: By MAR. PHYSICAL EXAMINATION: GENERAL: The patient is awake, alert, oriented, communicative and able to ambulate. VITAL SIGNS: She is afebrile, pulse 99, respirations 18, blood pressure 125/56. LUNGS: Bilateral fair airflow. No rhonchi or crackle. HEART: S1 and S2, audible. ABDOMEN: Soft and nontender. No rebound. No guarding. NEUROLOGICAL: The patient is awake, alert, oriented, and communicative. EXTREMITIES: Bilateral leg no edema. LABORATORY DATA: WBC 135, hemoglobin 4.7, hematocrit . Chem-7, sodium 135, potassium is 4.7, chloride 97, CO2 of 30, BUN 54, creatinine 1.6 and blood sugar of 339. ASSESSMENT: 1. Status post hyponatremia. 2. Insulin-dependant diabetes. 3. Hypertension. 4. Coronary artery disease. 5. Cardiac cirrhosis. 6. Thrombocytopenia. PLAN: We will continue patient on aspirin, isosorbide, Lasix, Protonix, Vantin and I will adjust the insulin because she started to eat well now. Harsh Morataya MD
[2018-03-29] MEDS: Insulin Detemir 100 units/ml Vial (Levemir) SC SCH (21:24)
[2018-03-30] MEDS: Pantoprazole 40 mg EC Tab PO SCH (06:24)
[2018-03-30] MEDS: Promethazine DM 6.25 mg-15 mg/5 ml Syrup PO SCH ×3 (06:24→21:04)
[2018-03-30] MEDS: Insulin Reg-HIGH-Coverage SC SCH ×4 (06:53→21:09)
[2018-03-30] MEDS: Insulin Lispro (humaLOG) MIX 75/25(10 ml) SC SCH ×2 (06:53→17:00)
[2018-03-30] MEDS: Levalbuterol 0.63 MG/3 ML Inhal Soln UD IH SCH ×3 (07:26→20:55)
[2018-03-30 09:32] LABS: ALB/GLOB RATIO 1.3 (1.1-1.8); ALBUMIN 3.7 g/dL (3.0-4.8)
[2018-03-30] MEDS: Cefpodoxime (Vantin) 200 mg Tab PO SCH (10:11)
[2018-03-30] MEDS: Mupirocin 2% Ointment 15 GM TUBE NS SCH ×2 (10:12→17:53)
--- NOTE | 2018-03-30 16:08 | PN ---
DATE: 03/30/2018 SUBJECTIVE: The patient is 82 years old, seen and examined. Sitting in chair, seems to be comfortable. No chest pain. No shortness of breath. Eating and tolerating. Participating in therapy, was walking in the hallway. PHYSICAL EXAMINATION: VITAL SIGNS: She is afebrile, pulse 100, respirations 17, blood pressure 127/64. LUNGS: Bilateral fair airflow. No rhonchi or crackle. HEART: S1 and S2 audible. ABDOMEN: Soft. Nontender. No rebound. No guarding. NEUROLOGICAL: The patient is awake, alert, oriented, communicative, ambulatory. LABORATORY EXAM: Her sodium 130, potassium 4.1, chloride 94, CO2 of 27, BUN 53, creatinine 1.7, blood sugar of 223. ASSESSMENT: 1. Status post hyponatremia. 2. Chronic obstructive pulmonary disease exacerbation. 3. Congestive heart failure exacerbation. Acute on chronic systolic. 4. Insulin-dependent diabetes. 5. Deconditioning and difficulty walking. 6. Cardiac cirrhosis. 7. Thrombocytopenia. PLAN: We will continue the patient on current medication. She is seemed to be stable. Encourage physical therapy. Blood sugar is running decent. We will continue . Harsh Morataya MD
[2018-03-30] MEDS: Insulin Detemir 100 units/ml Vial (Levemir) SC SCH (21:09)
[2018-03-31] MEDS: Promethazine DM 6.25 mg-15 mg/5 ml Syrup PO SCH ×3 (06:12→21:55)
[2018-03-31] MEDS: Pantoprazole 40 mg EC Tab PO SCH (06:12)
[2018-03-31] MEDS: Insulin Reg-HIGH-Coverage SC SCH ×4 (06:32→21:06)
[2018-03-31] MEDS: Insulin Lispro (humaLOG) MIX 75/25(10 ml) SC SCH ×2 (06:32→17:11)
[2018-03-31] MEDS: Levalbuterol 0.63 MG/3 ML Inhal Soln UD IH SCH ×3 (07:08→21:11)
[2018-03-31] MEDS: Mupirocin 2% Ointment 15 GM TUBE NS SCH ×2 (09:16→17:14)
[2018-03-31] MEDS: Cefpodoxime (Vantin) 200 mg Tab PO SCH (09:22)
[2018-03-31] MEDS: Insulin Detemir 100 units/ml Vial (Levemir) SC SCH (21:54)
[2018-04-01] MEDS: Pantoprazole 40 mg EC Tab PO SCH (06:03)
[2018-04-01] MEDS: Promethazine DM 6.25 mg-15 mg/5 ml Syrup PO SCH ×4 (06:03→23:09)
[2018-04-01] MEDS: Insulin Lispro (humaLOG) MIX 75/25(10 ml) SC SCH ×2 (06:46→18:05)
[2018-04-01] MEDS: Insulin Reg-HIGH-Coverage SC SCH ×4 (06:47→21:44)
[2018-04-01] MEDS: Levalbuterol 0.63 MG/3 ML Inhal Soln UD IH SCH ×3 (07:18→20:32)
--- NOTE | 2018-04-01 08:01 | PN ---
DATE: 03/29/2018 SUBJECTIVE: The patient is 82 years old, seen and examined, sitting in chair. Seems to be comfortable. No chest pain. No shortness of breath. PHYSICAL EXAMINATION: VITAL SIGNS: She is afebrile, pulse is 61, respirations 20, blood pressure 137/49. LUNGS: Bilateral fair airflow. No rhonchi or crackle. HEART: S1 and S2 audible. ABDOMEN: Soft. Nontender. No rebound. No guarding. NEUROLOGICAL: The patient is awake, alert, oriented, communicative. EXTREMITIES: Bilateral leg, no edema. LABORATORY EXAM: Blood sugar earlier this morning was 172, afternoon was 219 and noontime was 121 and supper was 241 and bedtime is 193. ASSESSMENT: 1. Status post symptomatic anemia. 2. History of hypertension. 3. Coronary artery disease. 4. Chronic kidney disease. 5. Deconditioning and difficulty walking. 6. Cardiac cirrhosis. 7. Thrombocytopenia. PLAN: I will order for Chem-7 in the morning. Keep an eye on her sodium level. Harsh Morataya MD
[2018-04-01] MEDS: Mupirocin 2% Ointment 15 GM TUBE NS SCH ×2 (10:18→18:05)
[2018-04-01] MEDS: Cefpodoxime (Vantin) 200 mg Tab PO SCH (10:21)
[2018-04-01] MEDS: Insulin Detemir 100 units/ml Vial (Levemir) SC SCH (21:44)
--- NOTE | 2018-04-01 22:07 | PN ---
DATE: 04/01/2018 SUBJECTIVE: Patient is 82 years old, seen and examined. Sitting in chair, seems to be comfortable, anxious to go home. PHYSICAL EXAMINATION: VITAL SIGNS: She is afebrile. Pulse 76, respirations 16, blood pressure 102/60. LUNGS: Bilateral fair airflow. No rhonchi or crackles. HEART: S1, S2 audible. ABDOMEN: Soft, nontender. No rebound. No guarding. NEUROLOGIC: Patient is awake, alert, oriented, communicative. LABORATORY DATA: Blood sugar is 180. ASSESSMENT: 1. Status post symptomatic hyponatremia. 2. Cardiac cirrhosis. 3. Coronary artery disease, status post angioplasty. 4. Insulin-dependent diabetes. 5. Deconditioning and difficulty walking. PLAN: We will discontinue her antibiotics. Continue to monitor blood sugar. We will follow up patient in a.m. Harsh Morataya MD
[2018-04-02] MEDS: Pantoprazole 40 mg EC Tab PO SCH (06:09)
[2018-04-02] MEDS: Promethazine DM 6.25 mg-15 mg/5 ml Syrup PO SCH ×3 (06:09→21:51)
[2018-04-02] MEDS: Insulin Reg-HIGH-Coverage SC SCH ×4 (06:49→21:37)
[2018-04-02] MEDS: Insulin Lispro (humaLOG) MIX 75/25(10 ml) SC SCH ×2 (06:49→17:22)
[2018-04-02] MEDS: Levalbuterol 0.63 MG/3 ML Inhal Soln UD IH SCH ×3 (07:24→20:19)
[2018-04-02] MEDS: Mupirocin 2% Ointment 15 GM TUBE NS SCH ×2 (09:47→17:27)
[2018-04-02] MEDS: Insulin Detemir 100 units/ml Vial (Levemir) SC SCH (21:51)
--- NOTE | 2018-04-03 01:25 | PN ---
DATE: 04/02/2018 SUBJECTIVE: The patient is 82 years old, seen and examined, sitting in chair, seems to be comfortable, anxious to go home, doing well. No cough or congestion. No shortness of breath. No diarrhea, no nausea. PHYSICAL EXAMINATION: VITAL SIGNS: She is afebrile, pulse 75, respirations 19, blood pressure . LUNGS: Bilateral fair airflow. No rhonchi or crackles. HEART: S1, S2 audible. ABDOMEN: Soft, nontender. No rebound. No guarding. NEUROLOGIC: The patient is awake, alert, oriented, communicative, able to ambulate. LABORATORY EXAMINATION: Blood sugar is 170. ASSESSMENT AND PLAN: 1. Status post symptomatic hyponatremia. 2. Hypertension. 3. Hyperlipidemia. 4. Insulin-dependent diabetes. 5. Deconditioning and difficulty walking. PLAN: I will continue patient on current medications, discharge plan for . Harsh Morataya MD
[2018-04-03] MEDS: Pantoprazole 40 mg EC Tab PO SCH (05:56)
[2018-04-03] MEDS: Promethazine DM 6.25 mg-15 mg/5 ml Syrup PO SCH ×3 (05:57→21:22)
[2018-04-03] MEDS: Insulin Lispro (humaLOG) MIX 75/25(10 ml) SC SCH ×2 (06:52→17:40)
[2018-04-03] MEDS: Insulin Reg-HIGH-Coverage SC SCH ×4 (06:52→22:13)
[2018-04-03] MEDS: Levalbuterol 0.63 MG/3 ML Inhal Soln UD IH SCH ×3 (07:16→19:49)
[2018-04-03] MEDS: Mupirocin 2% Ointment 15 GM TUBE NS SCH ×2 (09:58→17:39)
--- NOTE | 2018-04-03 18:41 | PN ---
DATE: 04/03/2018 SUBJECTIVE: The patient is 82 years old seen and examined, sitting in chair with the family chatting. No chest pain, no shortness of breath. Eating and tolerating. PHYSICAL EXAMINATION VITAL SIGNS: Patient is afebrile, pulse 78, respirations 16, and blood pressure 124/54. LUNGS: Bilateral fair airflow. No rhonchi or crackles. HEART: S1 and S2 audible. ABDOMEN: Soft and nontender. No rebound. No guarding. NEUROLOGIC: She is awake, alert, oriented, communicative, and ambulatory. EXTREMITIES: Bilateral legs, no edema. LABORATORY EXAMINATION: Blood sugar is 215 at lunchtime. ASSESSMENT AND PLAN: 1. Status post symptomatic hyponatremia. 2. Hypertension. 3. Cardiac cirrhosis. 4. Chronic kidney disease. 4. Thrombocytopenia. 5. Coronary artery disease, status post angioplasty. 6. History of gastrointestinal bleed. PLAN: At this point, the patient is clinically stable. She is doing well, eating, tolerating, and ambulating. Possible discharge in a.m. Harsh Morataya MD
[2018-04-03] MEDS: Insulin Detemir 100 units/ml Vial (Levemir) SC SCH (22:14)
[2018-04-04] MEDS: Pantoprazole 40 mg EC Tab PO SCH (06:40)
[2018-04-04] MEDS: Promethazine DM 6.25 mg-15 mg/5 ml Syrup PO SCH (06:40)
[2018-04-04] MEDS: Insulin Lispro (humaLOG) MIX 75/25(10 ml) SC SCH (06:42)
[2018-04-04] MEDS: Insulin Reg-HIGH-Coverage SC SCH ×2 (06:43→12:11)
[2018-04-04] MEDS: Levalbuterol 0.63 MG/3 ML Inhal Soln UD IH SCH ×2 (07:19→13:20)
[2018-04-04 07:27] VITALS: PULSE 72; RESP 18; TEMP 98.2; O2SAT 94
[2018-04-04] MEDS: Mupirocin 2% Ointment 15 GM TUBE NS SCH (10:28)
[2018-04-04 10:29] VITALS: BP 129/61
--- NOTE | 2018-04-05 00:57 | DS ---
HISTORY OF PRESENT ILLNESS: The patient is 82 years old who was initially admitted with cough, congestion, shortness of breath, feeling weak and she was found to have hyponatremia of 112. The patient was given hypertonic IV saline, was admitted in ICU, was seen by physical therapy aid, fluid resuscitation was done. Patient has generalized weakness. She was transferred to TCU for rehab and close monitoring. PHYSICAL EXAMINATION: GENERAL: Today, she is awake, alert, oriented, communicative. Anxious to go home. VITAL SIGNS: She is afebrile, pulse 72, respirations 18, blood pressure 129/61. LUNGS: Bilateral fair airflow. No rhonchi or crackle. HEART: S1 and S2 audible. ABDOMEN: Soft and nontender. No rebound. No guarding. NEUROLOGICAL: Patient is awake, alert, oriented, communicative. EXTREMITIES: Bilateral legs, no edema. LABORATORY DATA: Blood sugar is 270. ASSESSMENT AND PLAN: 1. Status post hyponatremia. 2. Insulin-dependent diabetes. 3. Coronary artery disease, status post angioplasty. 4. Hyperlipidemia. 5. Cardiac stenosis. 6. Thrombocytopenia. PLAN: Patient is going to be discharged today. She will resume her medications and I will follow her up in office next . Harsh Morataya MD
== END 2018-04-04 14:36 | disposition home health service (06) | DRG 555 ==
LOC: TRCU 18:29
PROVIDERS: ADMIT Internal Medicine; ATTEND Internal Medicine
PROC: F07L6YZ Therapeutic Exercise Treatment of Musculoskeletal System - Lower Back / Lower Extremity using Other Equipment (ICD-10-PCS; 2018-03-29)
PROC: F07Z9FZ Gait Training/Functional Ambulation Treatment using Assistive, Adaptive, Supportive or Protective Equipment (ICD-10-PCS; principal; 2018-03-30)
PROC: F07Z8FZ Transfer Training Treatment using Assistive, Adaptive, Supportive or Protective Equipment (ICD-10-PCS; 2018-03-30)
PROC: F08Z2FZ Grooming/Personal Hygiene Treatment using Assistive, Adaptive, Supportive or Protective Equipment (ICD-10-PCS; 2018-03-30)
PROC: F08Z1FZ Dressing Techniques Treatment using Assistive, Adaptive, Supportive or Protective Equipment (ICD-10-PCS; 2018-03-31)
DX: R26.2 Difficulty in walking, not elsewhere classified (principal); I50.23 Acute on chronic systolic (congestive) heart failure; E87.1 Hypo-osmolality and hyponatremia; I13.0 Hypertensive heart and chronic kidney disease with heart failure and stage 1 through stage 4 chronic kidney disease, or unspecified chronic kidney disease; I42.9 Cardiomyopathy, unspecified; J44.1 Chronic obstructive pulmonary disease with (acute) exacerbation; N18.9 Chronic kidney disease, unspecified; E11.22 Type 2 diabetes mellitus with diabetic chronic kidney disease; I25.10 Atherosclerotic heart disease of native coronary artery without angina pectoris; D69.6 Thrombocytopenia, unspecified; K76.1 Chronic passive congestion of liver; E78.5 Hyperlipidemia, unspecified; Z79.4 Long term (current) use of insulin; Z98.61 Coronary angioplasty status; Z87.11 Personal history of peptic ulcer disease

== ENCOUNTER 2018-09-13 08:13 | Inpatient (IN) | payer MEDICARE, OTHER ==
[2018-09-13 08:14] VITALS: BMI 23.6
--- NOTE | 2018-09-13 08:45 | ED PDOC ---
Arrival/HPI - General Chief Complaint: Chest Pain Time Seen by Provider: 09/13/18 08:17 Historian: Patient - History of Present Illness Narrative History of Present Illness (Text): 09/13/18 08:36 83 year old female, whose past medical history includes Cirrhosis, anemia, PNA, CHF, HTN, DM, CAD with 1 stent, CKD and UTI, presents to the ED via EMS complaining of chest pain for the past 2 weeks. Patient reports associated headache, shortness of breath and "feeling cold." Patient notes symptoms have been worsening for the past 3 days. Patient also reports PO intake of 4 Aspirins and 1 NTG pill prior to arrival. Patient denies any fall, trauma, fevers, dizziness, cough, abdominal pain, nausea, vomiting, diarrhea, back pain, neck pain, dysuria, hematuria, urinary/bowel changes, or any other complaints. PMD: Dr. Morataya Cigarette Machines Mechanic: Dr. Moses Time/Duration: > week (2 weeks) Symptom Course: Worsening Activities at Onset: Light Context: Home Past Medical History - Provider Review Nursing Documentation Reviewed: Yes - Infectious Disease Hx of Infectious Diseases: None - Tetanus Immunization Tetanus Immunization: Unknown - Reproductive Menopause: Yes - Cardiac Hx Cardiac Disorders: Yes Hx Congestive Heart Failure: Yes Hx Hypertension: Yes - Pulmonary Hx Chronic Obstructive Pulmonary Disease (COPD): Yes - Neurological Hx Neurological Disorder: Yes - HEENT Hx HEENT Disorder: No - Renal Hx Renal Failure: Yes - Endocrine/Metabolic Hx Diabetes Mellitus Type 2: Yes - Hematological/Oncological Hx Blood Disorders: Yes Hx Anemia: Yes - Integumentary Hx Dermatological Disorder: Yes - Musculoskeletal/Rheumatological Hx Falls: Yes - Gastrointestinal Hx Gastrointestinal Disorders: Yes - Genitourinary/Gynecological Hx Genitourinary Disorders: Yes - Psychiatric Hx Psychophysiologic Disorder: Yes Hx Anxiety: Yes Hx Substance Use: No - Surgical History Hx Appendectomy: Yes Hx Coronary Stent: Yes - Anesthesia Hx Anesthesia: Yes Hx Anesthesia Reactions: No Hx Malignant Hyperthermia: No - Suicidal Assessment Feels Threatened In Home Enviroment: No Family/Social History - Physician Review Nursing Documentation Reviewed: Yes Family/Social History: Unknown Family HX Smoking Status: Never Smoked Hx Alcohol Use: No Hx Substance Use: No Hx Substance Use Treatment: No Allergies/Home Meds Allergies/Adverse Reactions: Allergies shellfish derived Allergy (Verified 09/13/18 11:36) RASH Home Medications: Home Meds Medication Instructions Recorded Confirmed Amlodipine Besylate [Norvasc] 10 mg PO DAILY 08/23/15 09/13/18 Albuterol 0.083% [Albuterol 0.083% 2 ml NEB PRN PRN 09/13/18 09/13/18 Inhal Lexy (2.5 mg/3 ml) UD] Insulin Glargine, Recombina 20 units SC HS 09/13/18 09/13/18 [Lantus] Insulin Lispro [Humalog (Insulin 20 units SC BID 09/13/18 09/13/18 Lispro)] Insulin Regular, Human [Humulin R 1 units SC PRN PRN 09/13/18 09/13/18 U-500 Kwikpen] Isosorbide Mononitrate [Imdur] 60 mg PO DAILY 09/13/18 09/13/18 Metoprolol Succinate 25 mg PO DAILY 09/13/18 09/13/18 traMADol [Ultram] 50 mg PO TID PRN 09/13/18 09/13/18 Review of Systems - Physician Review All systems were reviewed & negative as marked: Yes - Review of Systems Constitutional: Normal. absent: Fatigue, Fevers Eyes: Normal. absent: Vision Changes ENT: absent: Hearing Changes, Rhinorrhea, Epistaxis Respiratory: SOB. absent: Cough Cardiovascular: Chest Pain Gastrointestinal: Normal. absent: Abdominal Pain, Stool Changes, Diarrhea, Nausea, Vomiting Genitourinary Female: absent: Dysuria, Hematuria Musculoskeletal: Normal. absent: Back Pain, Neck Pain Skin: Normal. absent: Rash Neurological: Headache. absent: Dizziness Endocrine: absent: Diaphoresis, Polyuria Hemo/Lymphatic: absent: Adenopathy Psychiatric: absent: Anxiety, Depression Physical Exam Vital Signs Reviewed: Yes Vital Signs Temp Pulse Resp BP Pulse Ox 09/13/18 08:13 98.3 F 58 L 26 H 139/57 L 95 Temperature: Afebrile Blood Pressure: Hypertensive Pulse: Regular Respiratory Rate: Normal Appearance: Positive for: Well-Appearing, Non-Toxic, Comfortable Pain Distress: None Mental Status: Positive for: Alert and Oriented X 3 - Systems Exam Head: Present: Atraumatic, Normocephalic Pupils: Present: PERRL Extroacular Muscles: Present: EOMI Conjunctiva: Present: Normal Mouth: Present: Moist Mucous Membranes Neck: Present: Normal Range of Motion Respiratory/Chest: Present: Clear to Auscultation, Good Air Exchange. No: Respiratory Distress, Accessory Muscle Use Cardiovascular: Present: Regular Rate and Rhythm, Normal S1, S2. No: Murmurs Abdomen: No: Tenderness, Distention, Peritoneal Signs Upper Extremity: Present: Normal Inspection. No: Cyanosis, Edema Lower Extremity: Present: Normal Inspection. No: Edema Neurological: Present: GCS=15, CN II-XII Intact, Speech Normal Skin: Present: Warm, Dry, Normal Color. No: Rashes Psychiatric: Present: Alert, Oriented x 3, Normal Insight, Normal Concentration Medical Decision Making ED Course and Treatment: 09/13/18 08:49 Impression: 83 year old female who presents to the ED for chest pain. Given hx of chest pain will require r/ out of ACS and likely serial trops. No chest pain radiating to back or abdominal pain noted. No diaphoresis on exam. Well appearing on exam. Given mild dizziness without vertigo like symptoms and normal neuro exam will seek non-stroke CT. Plan: -- Labs -- VBG -- CT Head -- EKG -- Chest X-Ray -- Reassess and disposition Prior Visits: Notes and results from previous visits were reviewed. Progress Notes: 09/13/18 08:53 EKG: NSR @ 55 bpm. No STEMI. 09/13/18 10:14 trop unremarkable BNP elevated but no crackles on lung exam. pt in [facility] paged Dr. Morataya for admission pated dr. moses 09/13/18 10:31 CT Head Impression: Generalized volume loss. Nonspecific white matter changes. Chest X-Ray Impression: Moderate cardiomegaly with mild vascular congestion. 09/13/18 11:04 appreciate consult w/ Dr. Morataya: to admit to her service pt in [facility] appreeciate consult w/ Dr. Moses: no indication for intervention given ekg at this time, will follow - RAD Interpretation Radiology Orders: 09/13/18 08:18 CHEST PORTABLE [RAD] Stat 09/13/18 08:34 HEAD W/O CONTRAST [CT] Stat - Scribe Statement The provider has reviewed the documentation as recorded by the Elizabeth Turcios Provider Scribe Attestation: All medical record entries made by the Scribe were at my direction and personally dictated by me. I have reviewed the chart and agree that the record accurately reflects my personal performance of the history, physical exam, medical decision making, and the department course for this patient. I have also personally directed, reviewed, and agree with the discharge instructions and disposition. Disposition/Present on Arrival - Present on Arrival Any Indicators Present on Arrival: No History of DVT/PE: No History of Uncontrolled Diabetes: Yes Urinary Catheter: No History of Decub. Ulcer: No History Surgical Site Infection Following: None - Disposition Have Diagnosis and Disposition been Completed?: Yes Diagnosis: Chest pain Disposition: HOSPITALIZED Disposition Time: 11:05 Patient Problems: Current Active Problems Problem Status Onset Chest pain Acute Condition: STABLE
[2018-09-13 08:51] LABS: BASO # 0.07 K/mm3 (0.0-2.0); BASO % 0.8 % (0.0-3.0); EOS # 0.4 (0.0-0.7); EOS % 4.1 % (1.5-5.0); HEMOGLOBIN 11.3 g/dL (12.0-16.0); LYMPH # 2.4 (1.2-3.4); LYMPH % 27.9 % (22.0-35.0); MEAN CELL VOLUME 94.6 fl (80.0-105.0); MEAN CORPUSCULAR HEMOGLOBIN 32.1 pg (25.0-35.0); MEAN CORPUSCULAR HGB CONC 33.9 g/dl (31.0-37.0); MEAN PLATELET VOLUME 10.9 fl (7.0-11.0); MONO # 0.7 (0.1-0.6); MONO % 8.6 % (1.0-6.0); RBC 3.52 10^6/uL (3.5-6.1); RED CELL DISTRIBUTION WIDTH 13.8 % (11.5-14.5); WHITE BLOOD COUNT 8.6 10^3/uL (4.5-11.0)
[2018-09-13 08:54] LABS: INR 1.12; PARTIAL THROMBOPLASTIN TIME 34.6 Seconds (26.9-38.3); PROTHROMBIN TIME 12.7 SECONDS (9.4-12.5)
[2018-09-13 09:50] LABS: VENOUS BLOOD GAS BASE EXCESS -3.1 mmol/L (0.0-2.0); VENOUS BLOOD GAS PO2 34 mm/Hg (30-55); VENOUS BLOOD PH 7.36 (7.32-7.43)
--- NOTE | 2018-09-13 09:51 | CT ---
Date of service: 09/13/2018 PROCEDURE: CT HEAD WITHOUT CONTRAST. HISTORY: headache [id number] COMPARISON: Noncontrast head CT performed 01/26/18 TECHNIQUE: Axial computed tomography images were obtained through the head/brain without intravenous contrast. Radiation dose: Total exam DLP = 976.46 mGy-cm. This CT exam was performed using one or more of the following dose reduction techniques: Automated exposure control, adjustment of the mA and/or kV according to patient size, and/or use of iterative reconstruction technique. FINDINGS: HEMORRHAGE: No intracranial hemorrhage. BRAIN: Diffuse atrophy with prominence of the ventricles and sulci noted. No mass effect or edema. Intracranial atherosclerosis. Scattered periventricular and subcortical white matter hypodensities, which are nonspecific, but often seen with chronic microvascular ischemic disease. Please note that MRI with diffusion imaging is more sensitive in the detection of acute ischemic event. VENTRICLES: No hydrocephalus. CALVARIUM: Unremarkable. PARANASAL SINUSES: Unremarkable as visualized. No significant inflammatory changes. MASTOID AIR CELLS: Unremarkable as visualized. No inflammatory changes. OTHER FINDINGS: None. IMPRESSION: Generalized volume loss. Nonspecific white matter changes.
[2018-09-13 09:54] LABS: ALB/GLOB RATIO 1.2 (1.1-1.8); ALBUMIN 3.8 g/dL (3.0-4.8)
--- NOTE | 2018-09-13 09:56 | RAD ---
Date of service: 09/13/2018 HISTORY: cp COMPARISON: 03/21/2018 TECHNIQUE: 1 view obtained. FINDINGS: LUNGS: No active pulmonary disease. PLEURA: No significant pleural effusion identified, no pneumothorax apparent. CARDIOVASCULAR: Aortic calcification Moderate cardiomegaly mild vascular congestion OSSEOUS STRUCTURES: No significant abnormalities. VISUALIZED UPPER ABDOMEN: Normal. OTHER FINDINGS: None. IMPRESSION: Moderate cardiomegaly with mild vascular congestion.
[2018-09-13 10:05] LABS: TROPONIN I 0.02 ng/mL
[2018-09-13] MEDS ORDERED: Albuterol-Ipratrop 3 mg / 0.5 (3 ml) UD IH PRN (12:45)
[2018-09-13] MEDS: Albuterol-Ipratrop 3 mg / 0.5 (3 ml) UD IH SCH ×2 (13:42→20:29)
--- NOTE | 2018-09-13 14:00 | CARD ---
APPROVED REPORT Date of service: 09/13/2018 EKG Measurement Heart [id number] <Conclusion> Junctional rhythm Nonspecific ST abnormality Abnormal ECG
[2018-09-13] MEDS ORDERED: Pneumococcal 23-Valent Vaccine IM ONE (14:46)
[2018-09-13] MEDS ORDERED: Influenza Vaccine 60 mcg/0.5 mL SYR (4YR UP) IM ONE (14:46)
[2018-09-13] MEDS ORDERED: Aritificial Tears (15ml) OU PRN (16:00)
[2018-09-13] MEDS: Insulin Reg-HIGH-Coverage SC SCH ×2 (17:46→22:03)
[2018-09-13] MEDS: Promethazine DM 6.25 mg-15 mg/5 ml Syrup PO PRN (17:46)
--- NOTE | 2018-09-13 22:26 | HP ---
DATE OF EXAM: 09/13/2018 HISTORY OF PRESENT ILLNESS: The patient is an 83-year-old known to me from multiple previous admissions. The patient say this morning when she woke up, she had some chest pressure radiating towards the right breast, feel short of breath that has been increasing for the last few days. No nausea or vomiting. No hemoptysis. No hematemesis. It is not related to her food. She get short of breath on minimal exertion. No history of nausea or vomiting. No diarrhea. No rectal bleeding. PAST MEDICAL HISTORY: Significant for: 1. Coronary artery disease, status post angioplasty. 2. Insulin-dependent diabetes. 3. History of cardiac cirrhosis. 4. Thrombocytopenia. 5. Gastritis with history of . 6. History of GI AVM. 7. Renal insufficiency probably diabetic nephropathy. ALLERGIES: SHE IS ALLERGIC TO SHELLFISH. SOCIAL HISTORY: She is and lives with her . Denies smoking, drinking, or alcohol use. MEDICATIONS AT HOME: She is on Phenergan DM as needed, Protonix 40 daily, and Zofran as needed. She is on Xopenex. She is on Lasix and she is on aspirin and amlodipine. She takes Xanax as needed. PHYSICAL EXAMINATION: GENERAL: She is awake and alert, still complain of mid chest pain and shortness of breath. VITAL SIGNS: She is afebrile, pulse 62, respirations 16, and blood pressure 156/58. LUNGS: Bilateral fair airflow. Soft crackle at bases. HEART: S1 and S2 audible. ABDOMEN: Soft and nontender. No rebound. No guarding. NEUROLOGIC: The patient is awake and alert, able to communicate. LABORATORY DATA: WBC 8.6, hemoglobin 11.3, hematocrit 33.3, and platelets 149. PT 12.7 and INR 1.12. Chemistry; sodium 133, potassium 5, chloride 102, CO2 of 22, BUN 42, potassium 2.2, blood sugar 265, and alk phos 160. BNP 4814. CT scan of the head is negative, generalized volume loss with nonspecific changes . X-ray chest, moderate cardiomegaly with mild vascular congestion. ASSESSMENT: 1. Chest pain, rule out coronary ischemia. 2. History of coronary artery disease, status post angioplasty. 3. Congestive heart failure acute on chronic systolic. 4. Cardiac cirrhosis. 5. Thrombocytopenia. 6. Insulin-dependent diabetes. PLAN: We will follow up the patient in a.m. Harsh Morataya MD
--- NOTE | 2018-09-13 23:34 | CON ---
DATE OF CONSULTATION: 09/13/2018 CARDIOLOGY CONSULTATION HISTORY: The patient is an 83-year-old woman, who presents with chest pain and shortness of breath. She was found to be in mild CHF. In addition, she was found to have sinus node disease with shana escape rhythms at 60. Hemodynamically, the patient remained stable. PAST MEDICAL HISTORY: The patient's past medical history includes a long history of GI bleed, which was uncontrolled until recently when she has been off oral anticoagulation except for a baby aspirin. Currently, she has not had any bloody bowel movements. SOCIAL HISTORY: The patient does not smoke. REVIEW OF SYSTEMS: The patient does complain of intermittent chest pain. PHYSICAL EXAMINATION: VITAL SIGNS: Blood pressure 135/60, the heart rate is in the 60s. NECK: Negative JVD. LUNGS: Without rales. CARDIAC: Heart rate S1 and S2. EXTREMITIES: Without edema. EKG shows sinus arrhythmia with shana escape rhythms. LABORATORY DATA: Troponin is negative x1. Hemoglobin has been stable. IMPRESSION: 1. Recurrent angina. 2. Documented history of coronary artery disease. 3. Recurrent gastrointestinal bleed. 4. Diabetes mellitus. 5. Renal insufficiency. 6. Hypertension. 7. Sinus node disease. 8. Her rhythm is stable with shana escape rhythms with an adequate blood pressure. PLAN: Given these findings, we will discontinue her beta-blockers. Lasix was ordered. We will add Imdur to her regimen as an antianginal agent. The patient is at high risk for any interventions given her history of GI bleed with any anticoagulation or Plavix. We will continue to try to treat her medically. Geovanni Moses MD
[2018-09-14] MEDS: Albuterol-Ipratrop 3 mg / 0.5 (3 ml) UD IH SCH ×4 (01:44→19:58)
[2018-09-14 04:15] LABS: BASO # 0.05 K/mm3 (0.0-2.0); BASO % 0.8 % (0.0-3.0); EOS # 0.3 (0.0-0.7); EOS % 4.3 % (1.5-5.0); HEMOGLOBIN 11.4 g/dL (12.0-16.0); LYMPH # 2.2 (1.2-3.4); LYMPH % 35.6 % (22.0-35.0); MEAN CELL VOLUME 95.2 fl (80.0-105.0); MEAN CORPUSCULAR HEMOGLOBIN 32.3 pg (25.0-35.0); MEAN CORPUSCULAR HGB CONC 33.9 g/dl (31.0-37.0); MEAN PLATELET VOLUME 10.2 fl (7.0-11.0); MONO # 0.6 (0.1-0.6); RBC 3.53 10^6/uL (3.5-6.1); RED CELL DISTRIBUTION WIDTH 13.7 % (11.5-14.5); WHITE BLOOD COUNT 6.2 10^3/uL (4.5-11.0)
[2018-09-14 04:42] LABS: TROPONIN I < 0.01 ng/mL
[2018-09-14 04:46] LABS: ALB/GLOB RATIO 1.2 (1.1-1.8); ALBUMIN 3.2 g/dL (3.0-4.8); ALT/SGPT 26 U/L (7-56); AST/SGOT 36 U/L (14-36); BLOOD UREA NITROGEN 41 mg/dL (7-21); CALCIUM 8.5 mg/dL (8.4-10.5); GFR NON-AFRICAN AMERICAN 21
[2018-09-14] MEDS ORDERED: Metoprolol Succinate 25 mg XL Tab PO SCH (08:00)
[2018-09-14] MEDS: Insulin Reg-HIGH-Coverage SC SCH ×4 (08:26→21:19)
[2018-09-14] MEDS: Pantoprazole 40 mg EC Tab PO SCH (10:35)
--- NOTE | 2018-09-14 17:11 | PN ---
DATE: 09/14/2018 SUBJECTIVE: The patient is an 83-year-old, seen and examined, doing much better. Less shortness of breath. Chest pain is improved. PHYSICAL EXAMINATION: VITAL SIGNS: She is afebrile, pulse 83, respirations 20, and blood pressure 136/67. LUNGS: Bilateral fair airflow. Occasional expiratory rhonchi with soft crackle at bases. HEART: S1 and S2 audible. ABDOMEN: Soft and nontender. No rebound. No guarding. NEUROLOGIC: The patient is awake and alert, able to communicate. LABORATORY DATA: WBC 6.2, hemoglobin 11.4, hematocrit 33.6, and platelets 128. Chemistry; sodium 137, potassium 4.6, chloride 104, CO2 of 24, BUN 41, creatinine 2.2, blood sugar 299. ASSESSMENT: 1. Acute on chronic systolic congestive heart failure. 2. Chest pain with history of coronary artery disease status post right coronary artery angioplasty. 3. History of generalized arteriovenous malformations. The patient gets gastrointestinal bleed with Plavix. Currently she is being maintained only on aspirin. 4. Hypertension. 5. Insulin-dependent diabetes. 6. Chronic renal insufficiency. PLAN: So plan is, her isosorbide has been increased to 60. Continue on IV Lasix. I will monitor her electrolytes. We will encourage ambulation. Will follow up . Harsh Morataya MD
[2018-09-14] MEDS: Promethazine DM 6.25 mg-15 mg/5 ml Syrup PO PRN (17:53)
--- NOTE | 2018-09-14 20:42 | PN ---
DATE: 09/14/[address] Geovanni Moses. SUBJECTIVE: The patient denies chest pain today. PHYSICAL EXAMINATION: VITAL SIGNS: Blood pressure 150/67, heart rate 83, temperature 98.8, respirations 20. HEENT: Normocephalic. CHEST: Clear. HEART: S1, S2. Regular. ABDOMEN: Soft. EXTREMITIES: Trace leg edema. LABORATORY DATA: EKG revealed junctional rhythm at the rate of [address] wave abnormality. CT scan without contrast, generalized volume loss, nonspecific white matter changes. Today's BUN and creatinine 41 and 2.2 respectively. Glucose 179. Today's SMA-7 is within normal limits. Troponin is 0.02 and less than 0.01. Today's hemoglobin and hematocrit 11.4 and 33.6, white count and platelet count are within normal limits. ASSESSMENT: 1. Chest pain. Troponin is not in the elevated range. 2. Junctional bradycardia. 3. Hypertension. 4. Chronic renal insufficiency. 5. Recurrent GI bleeding. RECOMMENDATIONS: Continue baby aspirin daily, Imdur 60 mg once a day, Lasix 40 mg intravenously daily, Lipitor 10 mg once a day, Norvasc 10 mg once a day, Protonix 40 mg orally daily, and Zofran 4 mg intravenously every 6 hours p.r.n. Hal Ayon MD
[2018-09-15] MEDS: Albuterol-Ipratrop 3 mg / 0.5 (3 ml) UD IH SCH ×4 (02:45→20:09)
[2018-09-15 06:53] LABS: BASO # 0.03 K/mm3 (0.0-2.0); BASO % 0.5 % (0.0-3.0); EOS # 0.3 (0.0-0.7); EOS % 4.6 % (1.5-5.0); HEMOGLOBIN 11.7 g/dL (12.0-16.0); LYMPH # 2.2 (1.2-3.4); LYMPH % 37.1 % (22.0-35.0); MEAN CELL VOLUME 96.5 fl (80.0-105.0); MEAN CORPUSCULAR HEMOGLOBIN 31.6 pg (25.0-35.0); MEAN CORPUSCULAR HGB CONC 32.8 g/dl (31.0-37.0); MEAN PLATELET VOLUME 10.6 fl (7.0-11.0); MONO # 0.6 (0.1-0.6); MONO % 9.7 % (1.0-6.0); RBC 3.7 10^6/uL (3.5-6.1); RED CELL DISTRIBUTION WIDTH 13.7 % (11.5-14.5); WHITE BLOOD COUNT 5.9 10^3/uL (4.5-11.0)
[2018-09-15 06:54] LABS: ALB/GLOB RATIO 1.2 (1.1-1.8); ALBUMIN 3.4 g/dL (3.0-4.8); CALCIUM 8.6 mg/dL (8.4-10.5)
[2018-09-15] MEDS: Insulin Reg-HIGH-Coverage SC SCH ×4 (08:13→22:24)
[2018-09-15] MEDS: Pantoprazole 40 mg EC Tab PO SCH (08:17)
--- NOTE | 2018-09-15 13:36 | PN ---
DATE: 09/15/2018 SUBJECTIVE: The patient has no complaints of any chest pain or shortness of breath, no headaches. PHYSICAL EXAMINATION: VITAL SIGNS: Temperature is 98, pulse is 70, blood pressure 118/73, respirations are 18. GENERAL: The patient is lying in bed, comfortable, and in no acute distress. HEENT: Anicteric sclerae. Moist mucosa. Nadine conjunctivae. No oral lesions. NECK: No JVD, anterior and posterior adenopathy, thyromegaly, or bruits. CARDIOVASCULAR: S1 and S2 regular. No murmurs, rubs or gallops. LUNGS: Clear to auscultation bilaterally. No wheezes, rales, or rhonchi. ABDOMEN: Bowel sounds are positive. Soft, nontender and nondistended. No rebound and no guarding EXTREMITIES: No cyanosis, clubbing, or edema. PSYCHIATRIC: She is awake, alert and oriented x3 SKIN: No erythema or nodules SPINE: Shows normal curvature. LABORATORY DATA: White count of 5.9, hemoglobin 11.7. Creatinine is 2. ASSESSMENT: 1. Congestive heart failure secondary to systolic dysfunction, acute. 2. Coronary artery disease, status post coronary artery bypass graft. 3. Coronary kidney disease; stage IV. 4. Hypertension. 5. Diabetes type 2. 6. Do not resuscitate/do not intubate. 7. Dyslipidemia. PLAN: The patient is currently comfortable. She is on nebulizer treatment. She is going to continue with aspirin. She is on isosorbide for her coronary artery disease. She is on Lipitor for dyslipidemia. She is on Lasix daily. The patient is on Protonix. She is on Tylenol for pain. Her isosorbide was increased to 60 mg. Her chest pain has improved. Gamal Rosenthal MD MTDD
--- NOTE | 2018-09-15 16:51 | PN ---
DATE: 09/15/2018 SUBJECTIVE: The patient denies any chest pain. She denies any rectal bleeding. PHYSICAL EXAMINATION VITAL SIGNS: Blood pressure 118/73, heart rate 70, temperature 98, and respirations 18. HEENT: Normocephalic. CHEST: Clear. HEART: S1 and S2, regular. EXTREMITIES: No edema. LABORATORY DATA: Today's hemoglobin and hematocrit 11.7. and 35.7, white count and platelet count are within normal limits. Today's BUN and creatinine are 40 and 2.0. Today's glucose is 195, followed by 336. The rest of SMA-7 is within normal limits. ASSESSMENT: 1. Chest pain with indeterminate troponin level. 2. Junctional rhythm. 3. Hypertension. 4. Chronic renal insufficiency. 5. Recurrent gastrointestinal bleeding. RECOMMENDATIONS: Continue aspirin 81 mg once a day, Lasix 40 mg intravenously once a day, Imdur 60 mg once a day, Lipitor 10 mg once a day, Norvasc 10 mg once a day, Protonix 40 mg p.o. once a day. Hal Ayon MD
[2018-09-16] MEDS: Promethazine DM 6.25 mg-15 mg/5 ml Syrup PO PRN (00:46)
[2018-09-16] MEDS: Albuterol-Ipratrop 3 mg / 0.5 (3 ml) UD IH SCH ×3 (02:30→13:03)
[2018-09-16 06:22] VITALS: O2SAT 98
[2018-09-16] MEDS: Insulin Reg-HIGH-Coverage SC SCH ×2 (08:02→12:18)
[2018-09-16] MEDS: Pantoprazole 40 mg EC Tab PO SCH (08:02)
[2018-09-16 11:19] VITALS: BP 136/51
[2018-09-16 12:24] VITALS: PULSE 60; RESP 19; TEMP 97.1
--- NOTE | 2018-09-16 13:19 | PN ---
DATE: 09/16/2018 CARDIOLOGY FOLLOWUP SUBJECTIVE: The patient is chest pain-free. She is ambulating on the floor. PHYSICAL EXAMINATION VITAL SIGNS: The blood pressure is 136/57, heart rates in the 70s. NECK: Negative JVD. LUNGS: Without rales. HEART: S1, S2. EXTREMITIES: Without edema. LABORATORY DATA: Troponins are negative x3. BUN and creatinine are 40 and 2.0, glucose is 159. Hemoglobin is 11.7. IMPRESSION 1. Resolution of angina. 2. No evidence for acute coronary syndrome. 3. The patient's angina is better on Imdur. 4. Renal insufficiency. 5. Diabetes mellitus. PLAN: Given these findings, the patient is a DNR. The patient wants to go home. Her angina is controlled with medication. No plans for intervention. From a cardiac perspective, the patient can be discharged. Geovanni Moses MD
--- NOTE | 2018-09-16 20:55 | DS ---
HISTORY OF PRESENT ILLNESS: The patient is 83-year-old who came in with chest pain and shortness of breath, that has been having few days prior to coming to the hospital. She was admitted. Troponin was followed and there was no evidence of acute ischemia. However, she was in congestive heart failure, so she was given IV diuretics with good response. Her blood sugar was monitored. PHYSICAL EXAMINATION: GENERAL: Today, she is awake, alert, and communicative. VITAL SIGNS: She is afebrile, pulse 60, respirations 19, and blood pressure 136/54. LUNGS: Bilateral fair airflow. No rhonchi or crackle. HEART: S1 and S2 audible. ABDOMEN: Soft and nontender. No rebound. No guarding. NEUROLOGIC: The patient is awake and alert; able to communicate. LABORATORY DATA: Blood sugar is 159. ASSESSMENT: 1. Acute on chronic congestive heart failure, systolic. 2. Insulin-dependent diabetes. 3. Hypertension. 4. History of gastrointestinal bleed secondary to generalized arteriovenous malformation. 5. Chronic anemia. 6. Thrombocytopenia. 7. Chronic kidney disease. PLAN: The patient is doing very well. She is advised to continue to have low-salt diet. She will continue her Lasix. She is advised to take extra dose of Lasix if start to get short of breath, and she will resume on her medication list prior to admission that included aspirin 81 daily, isosorbide 60 daily, Lasix 40 p.o. daily, atorvastatin 10 mg daily, amlodipine 10 mg daily, Protonix 40 daily, and tramadol as needed. I will follow up the patient in office in two weeks. Harsh Morataya MD
== END 2018-09-16 13:39 | disposition home or self-care (01) | DRG 291 ==
LOC: ED 08:13 → ERH 11:06 → 2RNO 12:24
PROVIDERS: ADMIT Internal Medicine; ATTEND Internal Medicine
PROC: 3E0F7GC Introduction of Other Therapeutic Substance into Respiratory Tract, Via Natural or Artificial Opening (ICD-10-PCS; principal; 2018-09-13)
DX: I13.0 Hypertensive heart and chronic kidney disease with heart failure and stage 1 through stage 4 chronic kidney disease, or unspecified chronic kidney disease (principal); I50.23 Acute on chronic systolic (congestive) heart failure; I25.119 Atherosclerotic heart disease of native coronary artery with unspecified angina pectoris; E11.22 Type 2 diabetes mellitus with diabetic chronic kidney disease; E11.21 Type 2 diabetes mellitus with diabetic nephropathy; K76.1 Chronic passive congestion of liver; N18.9 Chronic kidney disease, unspecified; R00.1 Bradycardia, unspecified; J44.9 Chronic obstructive pulmonary disease, unspecified; D69.6 Thrombocytopenia, unspecified; D64.9 Anemia, unspecified; Z66 Do not resuscitate; E78.5 Hyperlipidemia, unspecified; Z95.5 Presence of coronary angioplasty implant and graft; Z79.82 Long term (current) use of aspirin; Z95.1 Presence of aortocoronary bypass graft; Z79.4 Long term (current) use of insulin; Z79.899 Other long term (current) drug therapy; Z91.013 Allergy to seafood

== ENCOUNTER 2018-09-30 08:16 | Emergency (ER) | payer MEDICARE, OTHER ==
[2018-09-30 08:16] VITALS: BMI 23.6
[2018-09-30 08:28] VITALS: RESP 18; TEMP 97.7
--- NOTE | 2018-09-30 08:57 | ED PDOC ---
Arrival/HPI - History of Present Illness Narrative History of Present Illness (Text): 09/30/18 09:52 Patient is an 83 year old female with systolic CHF, hypertension, T2DM, CAD s/p stent, CKD, cirrhosis presenting with chief complaint of chest pain which began three days ago. Pain is localized to right side of anterior chest wall, intermittent, and described as a aching sensation aggravated by positional changes. Pain is associated with shortness of breath. Denies fevers, chills, nausea, vomiting, abdominal pain, diarrhea, dysuria. Time/Duration: < week Symptom Onset: Sudden Symptom Course: Unchanged Quality: Aching <Joselin Pinto L - Last Filed: 09/30/18 14:42> <Trevin Pendleton L - Last Filed: 09/30/18 18:19> - General Chief Complaint: Chest Pain Time Seen by Provider: 09/30/18 08:21 Past Medical History - Provider Review Nursing Documentation Reviewed: Yes - Infectious Disease Hx of Infectious Diseases: None - Tetanus Immunization Tetanus Immunization: Unknown - Cardiac Hx Cardiac Disorders: Yes Hx Congestive Heart Failure: Yes Hx Hypertension: Yes - Pulmonary Hx Chronic Obstructive Pulmonary Disease (COPD): Yes - Neurological Hx Neurological Disorder: Yes - HEENT Hx HEENT Disorder: No - Renal Hx Renal Failure: Yes - Endocrine/Metabolic Hx Diabetes Mellitus Type 2: Yes - Hematological/Oncological Hx Blood Disorders: Yes Hx Anemia: Yes - Integumentary Hx Dermatological Disorder: Yes - Musculoskeletal/Rheumatological Hx Falls: Yes - Gastrointestinal Hx Gastrointestinal Disorders: Yes - Genitourinary/Gynecological Hx Genitourinary Disorders: Yes - Psychiatric Hx Psychophysiologic Disorder: Yes Hx Anxiety: Yes Hx Substance Use: No - Surgical History Hx Appendectomy: Yes Hx Coronary Stent: Yes - Anesthesia Hx Anesthesia: Yes Hx Anesthesia Reactions: No Hx Malignant Hyperthermia: No - Suicidal Assessment Feels Threatened In Home Enviroment: No <Joselin Pinto L - Last Filed: 09/30/18 14:42> Family/Social History - Physician Review Nursing Documentation Reviewed: Yes Family/Social History: No Known Family HX Smoking Status: Never Smoked Hx Alcohol Use: No Hx Substance Use: No Hx Substance Use Treatment: No <Joselin Pinto L - Last Filed: 09/30/18 14:42> Allergies/Home Meds <Joselin Pinto - Last Filed: 09/30/18 14:42> <Trevin Pendleton L - Last Filed: 09/30/18 18:19> Allergies/Adverse Reactions: Allergies shellfish derived Allergy (Verified 09/13/18 11:36) RASH Home Medications: Home Meds Medication Instructions Recorded Confirmed Amlodipine Besylate [Norvasc] 10 mg PO DAILY 08/23/15 09/13/18 Albuterol 0.083% [Albuterol 0.083% 2 ml NEB PRN PRN 09/13/18 09/13/18 Inhal Lexy (2.5 mg/3 ml) UD] Insulin Glargine, Recombina 20 units SC HS 09/13/18 09/13/18 [Lantus] Insulin Lispro [Humalog (Insulin 20 units SC BID 09/13/18 09/13/18 Lispro)] Insulin Regular, Human [Humulin R 1 units SC PRN PRN 09/13/18 09/13/18 U-500 Kwikpen] Isosorbide Mononitrate [Imdur] 60 mg PO DAILY 09/13/18 09/13/18 Metoprolol Succinate 25 mg PO DAILY 09/13/18 09/13/18 traMADol [Ultram] 50 mg PO TID PRN 09/13/18 09/13/18 Review of Systems - Physician Review All systems were reviewed & negative as marked: Yes - Review of Systems Respiratory: SOB Cardiovascular: Chest Pain Gastrointestinal: Normal Genitourinary Female: Normal <Joselin Pinto L - Last Filed: 09/30/18 14:42> Physical Exam Vital Signs Reviewed: Yes Vital Signs Temp Pulse Resp BP Pulse Ox 09/30/18 08:25 97.7 F 50 L 18 149/60 94 L Temperature: Afebrile Blood Pressure: Normal Pulse: Regular Respiratory Rate: Normal Appearance: Positive for: Non-Toxic Pain Distress: None Mental Status: Positive for: Alert and Oriented X 3 Finger Stick Blood Glucose: 407 - Systems Exam Head: Present: Atraumatic, Normocephalic Pupils: Present: PERRL Extroacular Muscles: Present: EOMI Conjunctiva: Present: Normal Mouth: Present: Moist Mucous Membranes Respiratory/Chest: Present: Clear to Auscultation, Good Air Exchange, Tender to Palpation. No: Respiratory Distress, Accessory Muscle Use, Wheezes Cardiovascular: Present: Regular Rate and Rhythm, Normal S1, S2. No: Murmurs, Tachycardic Abdomen: Present: Normal Bowel Sounds. No: Tenderness, Distention, Rebound, Guarding Back: Present: Other (tenderness in right shoulder region ) Lower Extremity: Present: Normal Inspection. No: Edema Neurological: Present: GCS=15, CN II-XII Intact, Speech Normal Skin: Present: Warm, Dry, Normal Color Psychiatric: Present: Alert, Oriented x 3 <Joselin Pinto L - Last Filed: 09/30/18 14:42> Vital Signs Temp Pulse Resp BP Pulse Ox 09/30/18 09:55 46 L 18 135/73 95 09/30/18 09:10 48 L 18 149/60 95 09/30/18 08:25 97.7 F 50 L 18 149/60 94 L <Trevin Pendleton L - Last Filed: 09/30/18 18:19> Medical Decision Making ED Course and Treatment: 09/30/18 08:55 Impression: 83 year old female with chest pain Plan: - CBC, CMP, Mg - EKG, troponin - CXR - Urinalysis - Tylenol - Reassess and disposition Prior Visits: Notes and results from previous visits were reviewed. Patient had cardiac catheterization in November 2017 which shoed 50% steonsis in mid RCA, 50% stenosis in mid LAD, 60-70% stenosis in promixal portion of small diagnoal vessel, patent stent in mid LAD, normal LV function. Progress Notes: 09/30/18 08:59 Patient states she took aspirin. 09/30/18 09:58 Patient resting comfortably. Reports improvement in pain. - RAD Interpretation Radiology Orders: 09/30/18 08:48 CHEST PORTABLE [RAD] Stat - Medication Orders Current Medication Orders: Acetaminophen (Tylenol 325mg Tab) 650 mg PO STAT STA Stop: 09/30/18 08:49 <Joselin Pinto L - Last Filed: 09/30/18 14:42> ED Course and Treatment: 09/30/18 10:10 Patient Seen with Resident: In agreement with resident note with the except that more specifically the chest pain is is pointing to is more right by her right shoulder and consistent with the posterior shoulder/back pain. It's worse with movement. It's not associated with shortness of breathe or any type of chest pain. She does say at times she does get shortness of breathe but that is consistentt with her CHF and her doctor told her to take extra lasix when that occurs. Currently she is not short of breath. No cough. Patient seen and evaluated with resident. Came up with plan and treatment together. 09/30/18 11:33 On reassessment, patient no longer having pain; denies chest pain, shortness of breath. On exam; lungs clear. Family is at bedside. Advised patient to follow up with Dr. Morataya (PMD) and to take medications as prescribed. UA had blood. Counseled importance of follow up for hematuria. - Lab Interpretations Lab Results: Troponin I 0.02 ng/mL D 09/30/18 08:34 Total Bilirubin 0.4 mg/dL (0.2-1.3) 09/30/18 08:34 AST 30 U/L (14-36) 09/30/18 08:34 ALT 35 U/L (7-56) 09/30/18 08:34 Alkaline Phosphatase 158 U/L (38-126) H 09/30/18 08:34 Total Protein 6.2 g/dL (5.8-8.3) 09/30/18 08:34 Albumin 3.4 g/dL (3.0-4.8) 09/30/18 08:34 Globulin 2.8 gm/dL 09/30/18 08:34 Albumin/Globulin Ratio 1.2 (1.1-1.8) 09/30/18 08:34 Urine Color Yellow (YELLOW) 09/30/18 08:34 Urine Appearance Clear (CLEAR) 09/30/18 08:34 Urine pH 6.0 (4.7-8.0) 09/30/18 08:34 Ur Specific [place] 1.025 (1.005-1.035) 09/30/18 08:34 Urine Protein 100 mg/dL (<30 mg/dL) H 09/30/18 08:34 Urine Glucose (UA) 500 mg/dL (NEGATIVE) H 09/30/18 08:34 Urine Ketones Negative mg/dL (NEGATIVE) 09/30/18 08:34 Urine Blood Moderate (NEGATIVE) H 09/30/18 08:34 Urine Nitrate Negative (NEGATIVE) 09/30/18 08:34 Urine Bilirubin Negative (NEGATIVE) 09/30/18 08:34 Urine Urobilinogen 0.2 E.U./dL (<1 E.U./dL) 09/30/18 08:34 Ur Leukocyte Esterase Negative Carmen/uL (NEGATIVE) 09/30/18 08:34 Urine RBC 25 - 30 /hpf (0-2) H 09/30/18 08:34 Urine WBC 1 - 3 /hpf (0-6) 09/30/18 08:34 Ur Epithelial Cells 6 - 8 /hpf (0-5) H 09/30/18 08:34 Amorphous Sediment Few /hpf (NONE) 09/30/18 08:34 Urine Bacteria Many /hpf (NONE) 09/30/18 08:34 Urine Other Uyeast /hpf 09/30/18 08:34 - RAD Interpretation Narrative RAD Interpretations (Text): 09/30/18 09:34 Chest X-Ray shows: IMPRESSION: Congestive change. Possible small right pleural effusion. No infiltrate. Radiology Orders: 09/30/18 08:48 CHEST PORTABLE [RAD] Stat Step Finisher: Radiologist - EKG Interpretation EKG Interpretation (Text): 09/30/18 10:18 Reviewed EKG, shows: Sinus Bradycardia at 55 BPM. Old anterior infarct. Normal Intervals. No ST elevations. Interpreted by ED Physician: Yes Type: 12 lead EKG - Medication Orders Current Medication Orders: Discontinued Medications Acetaminophen (Tylenol 325mg Tab) 650 mg PO STAT STA Stop: 09/30/18 08:49 Last Admin: 09/30/18 09:18 Dose: 650 mg MAR Pain/Vitals Document 09/30/18 09:18 MR (Rec: 09/30/18 09:24 MR [id number]) Pain Reassessment Is This A Pain ReAssessment? No Sleep Is patient sleeping during reassessment? No Presence of Pain Presence of Pain Yes Pain Scale Used Protocol: PSCALES Pain Scale Used Numeric Location Left, Right or Bilateral Right Upper or Lower Upper Pain Location Body Site Chest Description Intermittent Sharp Intensity 8 Scale Used Numeric Radiation Location back Pain Behavior Facial Grimacing Aggravating Factors Changing Position Alleviating Factors Medication Insulin Human Regular (Humulin R) 4 units SC STAT STA Stop: 09/30/18 09:47 Lidocaine (Lidoderm) 1 ea TD ONCE ONE Stop: 09/30/18 09:06 Last Admin: 09/30/18 09:24 Dose: 1 ea MAR Transdermal Patch Site Document 09/30/18 09:24 (Rec: 09/30/18 09:24 MR [id number]) Transdermal Patch Site Transdermal Patch Site Right Upper Chest <Trevin Pendleton - Last Filed: 09/30/18 18:19> - PA / EXECUTIVE CHE[employer] / Resident Statement / has reviewed & agrees with the documentation as recorded. / has examined the patient and agrees with the treatment plan. <Trevin Pendleton - Last Filed: 09/30/18 18:19> Disposition/Present on Arrival - Present on Arrival Any Indicators Present on Arrival: Yes History of DVT/PE: No History of Uncontrolled Diabetes: Yes Urinary Catheter: No History of Decub. Ulcer: No History Surgical Site Infection Following: None - Disposition Have Diagnosis and Disposition been Completed?: Yes Disposition Time: 11:57 <Joselin Pinto - Last Filed: 09/30/18 14:42> <Trevin Pendleton - Last Filed: 09/30/18 18:19> - Disposition Diagnosis: Back pain, Chest pain, Hyperglycemia Disposition: HOME/ ROUTINE Condition: IMPROVED Discharge Instructions (ExitCare): Muscle Strain (DC), Chest Pain (ED) Additional Instructions: WAQAR DEE, thank you for letting us take care of you today. Your provider was Trevin Pendleton DO and you were treated for Chest/Back STrain. The emergency medical care you received today was directed at your acute symptoms. If you were prescribed any medication, please fill it and take as directed. It may take several days for your symptoms to resolve. Return to the Emergency Department if your symptoms worsen, do not improve, or if you have any other problems. Please contact your doctor or call one of the physicians/clinics you have been referred to that are listed on the Patient Visit Information form that is included in your discharge packet. Bring any paperwork you were given at discharge with you along with any medications you are taking to your follow up visit. Our treatment cannot replace ongoing medical care by a primary care provider outside of the emergency department. Thank you for allowing the [facility] team to be part of your care today. If you had an X-Ray or CT scan: A Radiologist will review the ED reading if any change in treatment is needed we will contact you. If you had a blood, urine, or wound culture: It will take several days for the results, if any change in treatment is needed we will contact you. If you had an STI test: It will take 48 hours for the results. Please call after 1 week if you have not heard back. Prescriptions: Lidocaine 5% [Lidoderm] 1 ea TD DAILY PRN #4 patch PRN Reason: Pain, Moderate (4-7) Forms: [employer] ([place])
[2018-09-30] MEDS ORDERED: Lidocaine 5% Patch TD ONE (09:05)
[2018-09-30 09:09] LABS: URINE APPEARANCE CLEAR (CLEAR); URINE BILIRUBIN NEGATIVE (NEGATIVE); URINE BLOOD MODERATE (NEGATIVE); URINE COLOR YELLOW (YELLOW); URINE GLUCOSE (UA) 500 mg/dL (NEGATIVE); URINE LEUKOCYTE ESTERASE NEGATIVE Leu/uL (NEGATIVE); URINE PROTEIN 100 mg/dL (<30 mg/dL); URINE UROBILINOGEN 0.2 E.U./dL (<1 E.U./dL)
[2018-09-30 09:11] VITALS: O2SAT 95
[2018-09-30 09:11] LABS: BASO # 0.06 {null, K/mm3} (0.0-2.0); BASO % 0.7 % (0.0-3.0); EOS # 0.3 (0.0-0.7); EOS % 3.5 % (1.5-5.0); HEMOGLOBIN 11.8 g/dL (12.0-16.0); LYMPH # 2.3 (1.2-3.4); LYMPH % 26.3 % (22.0-35.0); MEAN CELL VOLUME 92.7 fl (80.0-105.0); MEAN CORPUSCULAR HEMOGLOBIN 32.1 pg (25.0-35.0); MEAN CORPUSCULAR HGB CONC 34.6 g/dl (31.0-37.0); MEAN PLATELET VOLUME 10.9 fl (7.0-11.0); MONO # 0.7 (0.1-0.6); RBC 3.68 {null, 10^6/uL} (3.5-6.1); RED CELL DISTRIBUTION WIDTH 13.1 % (11.5-14.5); URINE BACTERIA MANY /hpf; URINE RBC 25 - 30 /hpf (0-2); WHITE BLOOD COUNT 8.5 {null, 10^3/uL} (4.5-11.0)
[2018-09-30 09:12] LABS: URINE AMORPHOUS SEDIMENT FEW /hpf
[2018-09-30 09:28] LABS: ALB/GLOB RATIO 1.2 (1.1-1.8); ALBUMIN 3.4 g/dL (3.0-4.8); CALCIUM 8.7 mg/dL (8.4-10.5); TROPONIN I 0.02 ng/mL
--- NOTE | 2018-09-30 09:38 | RAD ---
Date of service: 09/30/2018 HISTORY: chest pain COMPARISON: 09/13/2018 TECHNIQUE: 1 view obtained. FINDINGS: LUNGS: No active pulmonary disease. PLEURA: Probable small right pleural effusion. No left pleural effusion. No pneumothorax. CARDIOVASCULAR: No aortic atherosclerotic calcification present. Normal cardiac size. There is congestive change noted. OSSEOUS STRUCTURES: No significant abnormalities. VISUALIZED UPPER ABDOMEN: Normal. OTHER FINDINGS: None. IMPRESSION: Congestive change. Possible small right pleural effusion. No infiltrate.
[2018-09-30] MEDS ORDERED: Insulin Regular 1 UNITS/0.01 ML ML SC STA (09:46)
[2018-09-30 09:55] VITALS: PULSE 46
[2018-09-30 11:12] VITALS: BP 127/52
--- NOTE | 2018-09-30 20:11 | CARD ---
APPROVED REPORT Date of service: 09/30/2018 EKG Measurement Heart [id number] <Conclusion> Sinus bradycardia Possible Left atrial enlargement Cannot rule out small or absent R waves V1-V3, may be due to lead placement or possible septal infarct age undetermined. Abnormal ECG
== END 2018-09-30 11:57 | disposition home or self-care (01) ==
LOC: ED 08:16
DX: E11.65 Type 2 diabetes mellitus with hyperglycemia (principal); R07.9 Chest pain, unspecified; M54.9 Dorsalgia, unspecified; I12.9 Hypertensive chronic kidney disease with stage 1 through stage 4 chronic kidney disease, or unspecified chronic kidney disease; I25.10 Atherosclerotic heart disease of native coronary artery without angina pectoris; E11.22 Type 2 diabetes mellitus with diabetic chronic kidney disease; N18.9 Chronic kidney disease, unspecified; Z95.5 Presence of coronary angioplasty implant and graft